=== PATIENT | female | born 1940 | race Caucasian/White ===

== ENCOUNTER 2019-07-12 14:30 | Outpatient (RCR) | payer MEDICARE, SELFPAY ==
--- NOTE | 2019-06-14 15:04 | STOPEVAL ---
ST Outpatient Evaluation Thank you for referring this patient to [facility]. Pt is to be seen by Speech Therapy 1-2 x week for 4 weeks. Please review, sign, date and return this plan of care SD. I agree with and certify that the following plan of care is medically necessary. Referring Physician Date *ST Outpatient Evaluation Start: 06/14/19 08:27 Freq: Status: Active Protocol: Document 06/14/19 10:18 BECHERERT (Rec: 06/14/19 11:03 BECHERERT [email or web address]) Therapy Assessment Status Assessment Status Assessment Status Evaluation Outpatient Past Medical History Neurological History Hx Cerebrovascular Accident (CVA) Yes Hx Transient Ischemic Attacks (TIA) Yes Hx Other Neurological Disorders Yes: had shingles in 2014 which traveled through optic nerve into temporal lobe Pain Assessment Timing of Pain Assessment Timing of Pain Assessment Assessment Self Report Self Report Pain Level 0 Pain Score Pain Score 0: Self Report Bedside Swallow Evaluation General Reports Dysphagia Yes: difficulty with solids, needs liquid to wash it down Reported Difficult Consistencies Solids Swallowing Worsening Rapidly Meal Observed Bedside Swallows History of Dysphagia Yes: PEG tube in 2014 r/t dysphagia for several months History of Pneumonia No Intake Method Prior to Swallow Oral Evaluation Diet Prior to Swallow Evaluation Regular, Level 7 Liquid Consistency Prior to Swallow Thin (0) Evaluation Cognition During Swallowing Alert,Attentive Consistency Thin Uncontrolled 1 Method of Presentation Cup Behaviors Observed Apparently Normal Swallow Occurrence of Coughing After Vocal Quality After Swallowing Clear Swallow Palpation Results Good Swallow Initiation,Strong Laryngeal Elevation Solid Consistency Method of Presentation Finger/Hand Behaviors Observed Apparently Normal Swallow, Multiple Swallows Used Occurrence of Coughing None Swallow Palpation Results Good Swallow Initiation,Strong Laryngeal Elevation Tolerance Tolerance For Swallow No Distress Alertness Awake/Safe Cooperativeness Calm,Cooperative Attention Attentive Awareness of Swallowing Aware Postural Control Needs Assistance Fatigability Fatigues Easily Ability to Follow Directions Independent Recommendations Feeding Type Recommended Oral
--- NOTE | 2019-06-15 08:53 | STOPEVAL ---
Thank you for referring this patient to [facility] [place]. Please review, sign, date and return this plan of care SD. I agree with and certify that the following plan of care is medically necessary. Referring Physician Date *ST Outpatient Evaluation Start: 06/14/19 08:27 Freq: Status: Active Protocol: Document 06/14/19 10:18 BECHERERT (Rec: 06/14/19 11:03 BECHERERT [email or web address]) Therapy Assessment Status Assessment Status Assessment Status Evaluation Outpatient Past Medical History Neurological History Hx Cerebrovascular Accident (CVA) Yes Hx Transient Ischemic Attacks (TIA) Yes Hx Other Neurological Disorders Yes: had shingles in 2014 which traveled through optic nerve into temporal lobe Pain Assessment Timing of Pain Assessment Timing of Pain Assessment Assessment Self Report Self Report Pain Level 0 Pain Score Pain Score 0: Self Report Bedside Swallow Evaluation General Reports Dysphagia Yes: difficulty with solids, needs liquid to wash it down Reported Difficult Consistencies Solids Swallowing Worsening Rapidly Meal Observed Bedside Swallows History of Dysphagia Yes: PEG tube in 2014 r/t dysphagia for several months History of Pneumonia No Intake Method Prior to Swallow Oral Evaluation Diet Prior to Swallow Evaluation Regular, Level 7 Liquid Consistency Prior to Swallow Thin (0) Evaluation Cognition During Swallowing Alert,Attentive Consistency Thin Uncontrolled 1 Method of Presentation Cup Behaviors Observed Apparently Normal Swallow Occurrence of Coughing After Vocal Quality After Swallowing Clear Swallow Palpation Results Good Swallow Initiation,Strong Laryngeal Elevation Solid Consistency Method of Presentation Finger/Hand Behaviors Observed Apparently Normal Swallow, Multiple Swallows Used Occurrence of Coughing None Swallow Palpation Results Good Swallow Initiation,Strong Laryngeal Elevation Tolerance Tolerance For Swallow No Distress Alertness Awake/Safe Cooperativeness Calm,Cooperative Attention Attentive Awareness of Swallowing Aware Postural Control Needs Assistance Fatigability Fatigues Easily Ability to Follow Directions Independent Recommendations Feeding Type Recommended Oral Supervision Recommended Frequent Observation Food Consi
--- NOTE | 2019-07-12 15:58 | STOPEVAL ---
Thank you for referring this patient to [facility]. Please review, sign, date and return this discharge SD. I agree with the following discharge plan. Referring Physician Date Attending Provider: Cornel Stapleton MD * Outpatient Evaluation/Discharge Start: 06/14/19 08:27 Freq: Status: Active Protocol: Document 07/12/19 15:06 BECHERERT (Rec: 07/12/19 15:53 BECHERERT [email or web address]) Therapy Assessment Status Assessment Status Assessment Status Discharge Outpatient Past Medical History Neurological History Hx Cerebrovascular Accident (CVA) Yes Hx Transient Ischemic Attacks (TIA) Yes Hx Other Neurological Disorders Yes: had shingles in 2014 which traveled through optic nerve into temporal lobe Prior Level of Function Activity Level (Last 3 Months) Occupation retired Cooking Yes Cleaning Yes Laundry Yes Shopping Yes Driving Yes Prior Swallow Level Prior Intake Method Oral Prior Diet Regular (Level 7 Diet) Prior Liquid Consistency Thin (Level 0 Diet) Prior Cognition/Communication Prior Communication Level No Impairment Prior Cognitive Function Able to Function Independently Pain Assessment Timing of Pain Assessment Timing of Pain Assessment Assessment Self Report Self Report Pain Level 0 Pain Scale Pain Scale Used Numeric (1 - 10) Self Report Pain Assessment Throat Reported Pain Level 0 Pain Score Pain Score 0: Self Report Voice Evaluation Voice History Laryngeal Pain No Provider Consulted Dr Stapleton ENT Allergies Yes History of Trauma/Injury to the No Laryngeal Region Previous or Planned Laryngeal Surgery No Voice History Comments Pt sees an physician liaison related to thyroid nodules; reportedly, pt has a thyroid nodule on the right that has grown significantly since previous visit to [facility] Speech (% 100 Intelligibility) Intelligibility Comments Low volume can cause mild decline in overall ability to understand pt. Respiration Termination of Phrases/Sentences No Coincides with Termination of Exhalation Decrement In: Phonation No Decrement In: [employer] Closure per video stroboscopy Decrement In: Articulation No Decrement In: Respiration
== END 2019-09-03 12:43 | disposition home or self-care (01) ==
LOC: ANHST 14:30
PROVIDERS: Visit Provider Otolaryngology
DX: J38.00 Paralysis of vocal cords and larynx, unspecified (principal); R47.89 Other speech disturbances; Z86.73 Personal history of transient ischemic attack (TIA), and cerebral infarction without residual deficits; R13.10 Dysphagia, unspecified
CPT/HCPCS: 76536; 92507; 92524; 92610

== ENCOUNTER 2020-01-07 13:31 | Outpatient (CLI) | payer MEDICARE, SELFPAY ==
--- NOTE | ~2020-01-07 | DEXA_ITS ---
Bone Density Report Name: Rosa Veronica Age: 79 Sex: Female Ethnicity: White Date of : 1940 Indication: postmenopausal; height loss; hysterectomy; rheumatoid arthritis; Referring Provider: Neetu Evans Study: Bone densitometry was performed. Exam Date: January 07, 2020 Accession number: [id number] Bone Density: Region BMD T-score Z-score Classification AP Spine (L1-L4) 0.970 -0.7 2.0 Normal Femoral Neck (Left) 0.692 -1.4 0.9 Osteopenia Total Hip (Left) 0.839 -0.8 1.2 Normal Total Hip Bilateral Avg 0.833 -0.9 1.2 Normal Femoral Neck (Right) 0.651 -1.8 0.5 Osteopenia Total Hip (Right) 0.826 -1.0 1.1 Normal World Health Organization criteria for BMD impression classify patients as: Normal (T-score at or above -1.0), Osteopenia (T-score between -1.0 and -2.5), or Osteoporosis (T-score at or below -2.5). 10-year Fracture Risk(1): Major Osteoporotic Fracture 18% Hip Fracture 5.2% Reported Risk Factors: [place] (), Neck BMD=0.651, BMI=28.3, rheumatoid arthritis (1) FRAX(R) Version 3.08. Fracture probability calculated for an untreated patient. Fracture probability may be lower if the patient has received treatment. Previous Exams: Region Exam Age BMD T-score BMD Change BMD Change Date g/cm2 vs Baseline vs Previous AP Spine(L1-L4) 01/07/2020 79 0.970 -0.7 0.043(4.6%)# 0.001(0.1%)# 04/22/2011 70 0.969 -0.7 0.042(4.5%)* 0.042(4.5%)* 05/21/2007 66 0.927 -1.1 Total Hip(Left) 01/07/2020 79 0.839 -0.8 -0.067(-7.4%)# -0.039(-4.5%)# 04/22/2011 70 0.878 -0.5 -0.028(-3.0%)* -0.028(-3.0%)* 05/21/2007 66 0.906 -0.3 Total Hip(Right) 01/07/2020 79 0.826 -1.0 -0.091(-9.9%)# -0.077(-8.5%)# 04/22/2011 70 0.902 -0.3 -0.014(-1.5%) -0.014(-1.5%) 05/21/2007 66 0.916 -0.2 *Denotes significance at 95% confidence level, LSC for AP Spine = 0.022 g/cm2, LSC for Total Hip = 0.027 g/cm2 Clinical Information Provided by Patient: Has rheumatoid arthritis Has the following medical conditions: Hysterectomy Patient maximum height was 64 Menopause Age: 32 No regular weight bearing exercise Drinks caffeinated beverages Onset of menses at age 10 Number of children 3 Impression: The patient has low bone mass, based on the Right Femoral Neck T-score. The patient has an estimated ten-year risk of hip fracture of 5.2% and an estimated ten-year risk of major fracture of 18%, based on the WHO FRAX alg
--- NOTE | ~2020-01-07 | US_ITS ---
US thyroid INDICATION: Follow-up thyroid nodules TECHNIQUE: Real-time high-resolution ultrasound of the thyroid gland COMPARISON: Comparison to multiple prior studies sequentially, with oldest reviewed study dated 03/28. FINDINGS: The right thyroid lobe measures 4.3 x 2.1 x 2.6 cm. The left thyroid lobe measures 5.3 x 2 .8 x 2.8 cm. There is diffuse heterogeneous echotexture with multiple bilateral thyroid nodules which are not significantly changed allowing for differences of technique. Largest in the right lobe measu res 1.7 x 1.1 x 1.3 cm. Largest in the left lobe measures 3 x 2.3 x 2.3 cm. IMPRESSION: 1. No significant change to bilateral thyroid nodules, consistent with multinodular goiter. Given th e long-term interval stability these are likely benign. Reviewed, dictated and finalized at location A. IMPRESSION: 1. No significant change to bilateral thyroid nodules, consistent with multino dular goiter. Given the long-term interval stability these are likely benign.
== END 2020-01-07 13:32 | disposition home or self-care (01) ==
PROVIDERS: PCP Family Medicine; Visit Provider Internal Medicine Endocrinology, Diabetes & Metabolism
DX: E04.1 Nontoxic single thyroid nodule (principal); Z78.0 Asymptomatic menopausal state; M85.89 Other specified disorders of bone density and structure, multiple sites
CPT/HCPCS: 76536; 77080

== ENCOUNTER 2020-01-12 00:25 | Outpatient (CLI) | payer MEDICARE, SELFPAY ==
[2020-01-12 17:43] LABS: SARS-CoV-2 RNA PCR Negative
== END 2020-01-12 00:26 | disposition home or self-care (01) ==
LOC: ANHCOVIDDT 00:25
PROVIDERS: PCP Family Medicine; Visit Provider Internal Medicine Gastroenterology
DX: Z01.818 Encounter for other preprocedural examination (principal); Z11.59 Encounter for screening for other viral diseases
CPT/HCPCS: 87635; C9803; U0003

== ENCOUNTER 2020-01-14 00:50 | Day surgery (SDC) | payer MEDICARE, SELFPAY ==
[2019-11-11 10:40] VITALS: BMI 26.5
[2020-01-07 12:51] VITALS: BMI 26.5
--- NOTE | 2020-01-14 07:35 | P.PNAN_ITS ---
Anes - Initial Pre Proc Eval Procedure: Operation Date: 01/14/20 09:00 Proposed Procedures p Esophagogastroduodenoscopy - Malcolm Carlton MD Date/Time: 01/14/20 07:35 Surgeon: Malcolm Carlton MD Pre Op Diagnosis: Stricture, Hoarseness Patient Data Age: 79 Gender: F Height: 1.6 m Weight: 68 kg Allergies Allergy/AdvReac Type Severity Reaction Status Date / Time No Known Allergies Allergy Verified 01/07/20 12:51 Home Medications Medication Instructions Recorded Confirmed Type ascorbic acid (vitamin C) 500 mg 500 mg PO DAILY 07/02/19 01/07/20 History capsule biotin 1 mg capsule 1 mg PO DAILY 07/02/19 01/07/20 History cholecalciferol (vitamin D3) 25 1,000 unit PO DAILY 07/02/19 01/07/20 History mcg (1,000 unit) capsule folic acid 1 mg tablet 1 mg PO DAILY 07/02/19 01/07/20 History omeprazole 40 mg capsule,delayed 40 mg PO DAILY 07/02/19 01/07/20 History release lisinopril 20 See Rx Instructions .ROUTE 10/08/19 01/07/20 Rx mg-hydrochlorothiazide 12.5 mg .COMPLEX #90 tablet tablet hydrocodone-acetaminophen 1 tablet PO BID PRN 11/11/19 01/07/20 History prednisone See Rx Instructions .ROUTE .COMPLEX 01/07/20 01/07/20 History Patient hx anesthesia problems: none Family hx anesthesia problems: none PMFSH Past Medical History Medical History COPD (chronic obstructive pulmonary disease) CVA (cerebral vascular accident) Essential (primary) hypertension GERD without esophagitis Hyperthyroidism Rheumatoid arthritis Follows with Rheumatology TIA (transient ischemic attack) [facility] Family History Family History Father Family history of Alzheimer's disease Mother Hypertension Other Cerebrovascular accident Family history of arthritis Family history of thyroid disease Social History Social History Smoking status: Never smoker Alcohol intake: current Anes - Eval Final PreProcedure Day of Procedure 01/14/20 07:35 Patient weight: overweight Heart: regular rate and rhythm Lungs: clear to auscultation and normal air movement Airway: Mallampati scale class II Neurological: alert and oriented Last oral intake: >/= 8 hours ASA classification: III Emergent: no Anesthetic plan: proceed Anesthesia type and monitoring: general GIVS Informed Consent: The patient's anesthetic plan and its attendant risks and benefits were discussed with the patient/family/POA. Questions were solicited and answers provided to the satisfaction of the patient/family/POA.
[2020-01-14 08:20] VITALS: BP 184/99; PULSE 77; RESP 16; TEMP 36.2; O2SAT 97; BMI 27.0
[2020-01-14] MEDS: LACTATED RINGERS 1,000 ML 150 ML IV CONT (08:37)
--- NOTE | 2020-01-14 08:56 | P.HP_ITS ---
History of Present Illness History of Present Illness Consent: Risks, benefits, and alternatives have been discussed and questions answered. Patient agrees to proceed with procedure. Chief complaint: Stricture, Hoarseness Narrative: Rosa Veronica is a 79 year old female with dysphagia. She has history of esophageal stricture PMF Past Medical History Medical History COPD (chronic obstructive pulmonary disease) CVA (cerebral vascular accident) Essential (primary) hypertension GERD without esophagitis Hyperthyroidism Rheumatoid arthritis Follows with Rheumatology TIA (transient ischemic attack) Following with [facility] Family History Family History Father Family history of Alzheimer's disease Mother Hypertension Other Cerebrovascular accident Family history of arthritis Family history of thyroid disease Social History Social History Smoking status: Never smoker Alcohol intake: current Meds Home Medications and Allergies Home Medications Medication Instructions Recorded Confirmed Type ascorbic acid (vitamin C) 500 mg 500 mg PO DAILY 07/02/19 01/14/20 History capsule biotin 1 mg capsule 1 mg PO DAILY 07/02/19 01/14/20 History cholecalciferol (vitamin D3) 25 1,000 unit PO DAILY 07/02/19 01/14/20 History mcg (1,000 unit) capsule folic acid 1 mg tablet 1 mg PO DAILY 07/02/19 01/14/20 History omeprazole 40 mg capsule,delayed 40 mg PO DAILY 07/02/19 01/14/20 History release lisinopril 20 See Rx Instructions .ROUTE 10/08/19 01/14/20 Rx mg-hydrochlorothiazide 12.5 mg .COMPLEX #90 tablet tablet hydrocodone-acetaminophen 1 tablet PO BID PRN 11/11/19 01/07/20 History prednisone See Rx Instructions .ROUTE .COMPLEX 01/07/20 01/14/20 History Allergies Allergy/AdvReac Type Severity Reaction Status Date / Time No Known Allergies Allergy Verified 01/14/20 08:20 Vital Signs Vital Signs - 24 hr 01/14/20 08:20 Temperature 36.2 C L Pulse Rate 77 Respiratory Rate 16 Blood Pressure 184/99 H Pulse Oximetry 97 Exam Const: General: alert Orientation/consciousness: patient oriented x3 Resp: Auscultation: clear to auscultation bilaterally Cardio: Rhythm: regular rhythm GI: GI Palp: Yes Soft to palpation and No Tenderness to palpation present (GI) Neuro: General: patient oriented x3 Assessment and Plan Assessment and plan (1) Dysphagia: Code(s): R13.10 - Dysphagia, unspecified Status: Acute Assessment and Plan: EGD with possible biopsy or dilatation or cautery.
[2020-01-14 09:29] VITALS: BP 124/71; PULSE 75; RESP 18; O2SAT 94
[2020-01-14 09:39] VITALS: BP 135/93; PULSE 71; RESP 21; O2SAT 95
[2020-01-14 09:49] VITALS: BP 145/94; PULSE 70; RESP 20; O2SAT 96
== END 2020-01-14 10:06 | disposition home or self-care (01) ==
PROVIDERS: PCP Family Medicine; Visit Provider Internal Medicine Gastroenterology
PROC: 0DJ08ZZ Inspection of Upper Intestinal Tract, Via Natural or Artificial Opening Endoscopic (ICD-10-PCS; CPT 43235; principal; 2020-01-14 09:00)
DX: K22.2 Esophageal obstruction (principal); K21.9 Gastro-esophageal reflux disease without esophagitis; J44.9 Chronic obstructive pulmonary disease, unspecified; I10 Essential (primary) hypertension; M06.9 Rheumatoid arthritis, unspecified; E05.90 Thyrotoxicosis, unspecified without thyrotoxic crisis or storm; Z86.73 Personal history of transient ischemic attack (TIA), and cerebral infarction without residual deficits
CPT/HCPCS: 43249; 88305; C1726; J2001; J2704; J7120

== ENCOUNTER 2020-03-14 16:35 | Emergency (ER) | payer MEDICARE, SELFPAY ==
--- NOTE | ~2020-03-14 | CT_ITS ---
EXAMINATION: CT abdomen pelvis w con EXAM DATE: 03/14/2020 18:36 INDICATION: Right upper quadrant abdominal pain. TECHNIQUE: Spiral CT of the abdomen and pelvis was performed following intravenous injection of 100 m L Omnipaque 350. Axial, coronal and sagittal images were reviewed. The dose-length product (DLP) fo r this examination was 594.18 mGy-cm. The exposure was tailored according to patient size (auto mA e xposure control), and iterative reconstruction (ASIR) was used as additional dose reduction technique . Comparison is made to prior examination from 04/06/2018. FINDINGS: The superior mesenteric artery origin enhances normally, but once it starts branching, ther e are several branches that have decreased enhancement, with mild adjacent fat stranding. Appearance is suspicious for acute thrombus (findings have been indicated on axial image 88, 102, 108. These ves sels that appear normal in 2018. There is no bowel wall thickening to suggest acute ischemia from thi s but recommend checking lactate levels. There is moderate sigmoid diverticulosis. The liver, spleen, adrenal glands and pancreas are unremarkable. Gallbladder is unremarkable. No bi liary obstruction. Portal and splenic veins are patent. Kidneys enhance symmetrically. There is no hydronephrosis. There is punctate left inferior calyceal stone. The uterus is not identified and phelps s likely been surgically resected. Small bilateral inguinal fat-containing hernias. Small mid abdomin al fat-containing hernia. The bladder is unremarkable. There is no retroperitoneal or pelvic lympha denopathy. There is mild to moderate scattered arteriosclerotic disease. No free intraperitoneal gas. The heart is normal in size. There are no pericardial or pleural effu sions. There is bibasilar subsegmental atelectasis. There are no osteoblastic or osteolytic lesions identified. IMPRESSION: 1. Decreased enhancement, attenuation within several branches of the superior mesenteric artery, wit h mild associated adjacent mesenteric edema. Could be acute arterial thrombus. No bowel findings to s uggest ischemia but please check lactate levels. 2. Moderate sigmoid diverticulosis. 3. Left nephrolithiasis. 4. Fat-containing hernias. 5. Bibasilar atelectasis. Reviewed, dictated and finalized at location A. IMPRESSION: 1. Decreased enhancement, attenuation within several branches of the superior mesenteric artery, with mild associated adjacent mesenteric edema. Could be acu te arterial thrombus. No bowel findings to suggest ischemia but please check la ctate levels. 2. Moderate sigmoid diverticulosis. 3. Left nephrolithiasis. 4. Fat-containing hernias. 5. Bibasilar atelectasis.
[2020-03-14 16:39] VITALS: BP 171/108; PULSE 92; RESP 20; TEMP 36.5; O2SAT 95
[2020-03-14 16:57] LABS: Basophils Percent Auto 0.5 % (0.2-1.2); Eosinophils Absolute Auto 0.1 K/mm3 (0-0.3); Eosinophils Percent Auto 1.7 % (0-4.4); Hematocrit 47.5 % (37.0-47.0); Hemoglobin 15.1 g/dL (12.0-15.0); Immature Granulocyte Absolute 0.02 K/mm3 (0.00-0.031); Immature Granulocyte Percent A 0.3 % (0-0.5); Immature Platelet Fraction Pct 4.6 % (0.9-11.2); Lymphocytes Absolute Auto 2.08 K/mm3 (0.9-3.2); Lymphocytes Percent Auto 27.8 % (18.3-44.2); Mean Corpuscular HGB Conc 31.8 g/dl (32-36); Mean Corpuscular Hemoglobin 29.1 pg (26-34); Mean Corpuscular Volume 91.5 fl (80-100); Mean Platelet Volume 10.9 fl (7.4-10.4); Monocytes Absolute Auto 0.6 K/mm3 (0.1-0.6); Monocytes Percent Auto 8.2 % (2.6-8.5); Neutrophils Absolute Auto 4.6 K/mm3 (1.3-6.7); Neutrophils Percent Auto 61.5 % (45.5-73.1); Platelet Count Result 84 k/mm3 (150-375); Red Blood Count 5.19 M/mm3 (4.2-5.4); Red Cell Distribution Width 14.6 % (11.5-14.5); White Blood Count 7.5 K/mm3 (4.5-10.0)
[2020-03-14 17:07] LABS: Alanine Aminotransferase 43 U/L (4-35); Albumin Level 4.1 g/dL (3.5-5.1); Alkaline Phosphatase 122 U/L (38-126); Anion Gap 9.1 mmol/L (7-16); Aspartate Amino Transferase 51 U/L (14-36); Blood Urea Nitrogen 15 mg/dL (7-17); Calcium 8.7 mg/dL (8.4-10.2); Carbon Dioxide 29 mmol/L (22-30); Chloride 100 mmol/L (98-107); Estimated CRCL calculation 52 ml/min; Estimated Glomerular Filt Rate > 60; Glucose 95 mg/dL (65-105); Lipase 197 U/L (23-300); Potassium 3.1 mmol/L (3.4-5.0); Sodium 135 mmol/L (137-145)
[2020-03-14 17:11] LABS: Add Urine Microscopic? YES; Appearance Urine Clear (Clear); Bilirubin Urine Negative (Negative); Blood Urine Negative (Negative); Color Urine Yellow (Yellow); Glucose Urine UA Negative (Negative); Ketones Urine Negative (Negative); Leukocyte Esterase Ur Negative LEU/UL (Negative); Mucus Urine Few /lpf; Nitrate Urine Negative (Negative); Protein Urine 1+ mg/dL (Negative); Specific Grav Ur 1.019 (1.001-1.035); Squamous Epithelial Cell Urine Many /hpf (Few); Urobilinogen Urine Negative mg/dL (<2.0); WBC Urine 0-3 /hpf
--- NOTE | 2020-03-14 17:59 | ED.ABDPAIN ---
HPI - Abdominal Pain General Chief Complaint: Abdominal Pain Stated Complaint: R abd pain Time Seen by Provider: 03/14/20 17:52 Source: patient and family History of Present Illness HPI narrative: Abdominal pain started last night, constant, radiating to the back. Associated with nausea and frequent vomiting. Patient denies any fever, chills, diarrhea, similar symptoms. History of hysterectomy and appendectomy. Patient does not smoke or drink. Patient on aspirin. Related Data Home Medications Medication Instructions Recorded Confirmed ascorbic acid (vitamin C) 500 mg 500 mg PO DAILY 07/02/19 03/13/20 capsule biotin 1 mg capsule 1 mg PO DAILY 07/02/19 03/13/20 cholecalciferol (vitamin D3) 25 1,000 unit PO DAILY 07/02/19 03/13/20 mcg (1,000 unit) capsule folic acid 1 mg tablet 1 mg PO DAILY 07/02/19 03/13/20 omeprazole 40 mg capsule,delayed 40 mg PO DAILY 07/02/19 03/13/20 release hydrocodone-acetaminophen 1 tablet PO BID PRN 11/11/19 03/13/20 aspirin 325 mg tablet 325 mg PO DAILY 03/06/20 03/13/20 atorvastatin 40 mg tablet 40 mg PO DAILY 03/06/20 03/13/20 fluticasone 250 mcg-salmeterol 50 1 inhalation INHALATION BID 03/06/20 03/13/20 mcg/dose blistr powdr for inhalation methylprednisolone 4 mg tablet 6 mg PO QAM tablet 03/07/20 03/13/20 Allergies Allergy/AdvReac Type Severity Reaction Status Date / Time No Known Allergies Allergy Verified 03/14/20 15:55 Review of Systems Review of Systems: Narrative: CONSTITUTIONAL: Denies fever, chills, or sweats. EYES: Denies visual changes, redness, or discharge. ENT: Denies rhinorrhea, congestion, sore throat, or otalgia. CARDIOVASCULAR: Denies chest pain, palpitations, or edema. RESPIRATORY: Denies cough or dyspnea. GASTROINTESTINAL: Denies abdominal pain, nausea, vomiting, or diarrhea. GENITOURINARY: Denies dysuria or hematuria. SKIN: Denies rash or itching. MUSCULOSKELETAL: Denies back pain, joint pain, or myalgia. NEUROLOGIC: Denies headache, numbness, or weakness. PSYCHIATRIC: Denies anxiety or depression. [facility] Past Medical History Medical History COPD (chronic obstructive pulmonary disease) CVA (cerebral vascular accident) Essential (primary) hypertension GERD without esophagitis History of blood clots Hyperthyroidism Rheumatoid arthritis Follows with Rheumatology TIA (transient ischemic attack) Following with [facility] Surgical History Surgical History H/O abdominoplasty H/O brain surgery H/O shoulder surgery H/O Spinal surgery spinal tumor removed H/O: hysterectomy History of appendectomy History of knee replacement Family History Family History Father Family history of Alzheimer's disease Mother Hypertension Other Diabetes mellitus Nervous disorder Other Cerebrovascular accident Family history of arthritis Family history of thyroid disease Social History Social History Smoking status: Never smoker Alcohol intake: current Substance use: never Gender identity (if verbalized by the patient): Female Exam Narrative: Exam Narrative: General appearance: Well-developed, well-nourished Skin: Normal color Head: Normocephalic, nontraumatic Eyes: Clear conjunctiva ENT: Oropharynx normal, ears normal, nose normal Neck: Supple, nontender Chest and respiratory: Airway patent, no respiratory distress, no accessory muscle use Heart: Regular rate/rhythm Abdomen: Diffuse tenderness, diffuse guarding, distention Vascular: Normal peripheral pulses, normal capillary refill. Musculoskeletal: Normal range of motion, nontender back Neurologic: Alert and oriented ?3, [employer] is normal as tested, no gross motor deficit
--- NOTE | 2020-03-14 18:41 | PC.NURSE ---
Pt in CT at this time
[2020-03-14] MEDS: SODIUM CHLORIDE 0.9% IV 1,000 ML 999 ML IV CONT (18:46)
[2020-03-14 18:47] VITALS: BP 161/99; PULSE 88; RESP 23; O2SAT 88
[2020-03-14] MEDS: ONDANSETRON INJ 4 MG/2 ML VIAL IV PUSH (18:47)
[2020-03-14] MEDS: MORPHINE SULFATE 4 MG/ML INJ IV PUSH (18:47)
[2020-03-14 19:22] VITALS: BP 174/105; PULSE 89; RESP 18; O2SAT 93
[2020-03-14 20:09] LABS: Lactic Acid Reflex 1.5 mmol/L (0.7-2.1)
[2020-03-14 21:22] LABS: INR 0.9; Prothrombin Time 12.2 Seconds (11.1-14.7)
[2020-03-14 21:23] LABS: Partial Thromboplastin Time 27.7 SECONDS (22.3-36.8)
--- NOTE | 2020-03-14 21:54 | PC.NURSE ---
MD Denis states it is okay to infuse Heparin with pt's PLT level of 84. Discussed with Kelly, pharmacist.
[2020-03-14] MEDS: HEPARIN SOD/D5W 100 UNITS/ML 25,000 UNITS/250 ML BAG 6 UNITS IV CONT (22:17)
[2020-03-14 22:18] VITALS: BP 135/94; PULSE 102; RESP 18; O2SAT 93
[2020-03-14] MEDS: HEPARIN SODIUM 5,000 UNITS/ML VIAL 5000 UNITS IV PUSH (22:18)
[2020-03-14 22:32] LABS: Basophils Percent Auto 0.5 % (0.2-1.2); Eosinophils Absolute Auto 0.1 K/mm3 (0-0.3); Eosinophils Percent Auto 1.4 % (0-4.4); Hematocrit 49.4 % (37.0-47.0); Hemoglobin 15.7 g/dL (12.0-15.0); Immature Granulocyte Absolute 0.03 K/mm3 (0.00-0.031); Immature Granulocyte Percent A 0.4 % (0-0.5); Immature Platelet Fraction Pct 4.9 % (0.9-11.2); Lymphocytes Absolute Auto 2.28 K/mm3 (0.9-3.2); Lymphocytes Percent Auto 27.1 % (18.3-44.2); Mean Corpuscular HGB Conc 31.8 g/dl (32-36); Mean Corpuscular Hemoglobin 29.5 pg (26-34); Mean Corpuscular Volume 92.9 fl (80-100); Mean Platelet Volume 10.7 fl (7.4-10.4); Monocytes Absolute Auto 0.7 K/mm3 (0.1-0.6); Neutrophils Absolute Auto 5.3 K/mm3 (1.3-6.7); Neutrophils Percent Auto 62.6 % (45.5-73.1); Platelet Count Result 84 k/mm3 (150-375); Red Blood Count 5.32 M/mm3 (4.2-5.4); Red Cell Distribution Width 14.9 % (11.5-14.5); White Blood Count 8.4 K/mm3 (4.5-10.0)
--- NOTE | 2020-03-14 23:01 | PC.NURSE ---
Called [facility] to transport patient. ETA [id number]. No other EMS services available.
--- NOTE | 2020-03-14 23:48 | PC.NURSE ---
called [facility] for ETA update. ETA [phone]
--- NOTE | 2020-03-14 23:58 | PCDIET ---
called [facility] to request transport. declined
[2020-03-15 00:54] VITALS: BP 165/103; PULSE 103; RESP 17; O2SAT 94
--- NOTE | 2020-03-15 01:27 | PC.NURSE ---
pt continues to rest on stretcher at this time with eyes closed, RR even and unlabored, pt denies any needs/concerns. will continue to monitor pt for baseline status changes.
[2020-03-15 02:17] VITALS: BP 152/106; PULSE 101; RESP 18; O2SAT 95
--- NOTE | 2020-03-15 02:33 | PC.NURSE ---
called [facility] for ETA update. ETA [id number]
[2020-03-15 03:29] VITALS: BP 168/109; PULSE 105; RESP 17; O2SAT 95
--- NOTE | 2020-03-23 20:35 | PC.NURSE ---
LATE ENTRY This note is being entered to document information to the patient's record. The following information was omitted on 03/23/20, by Kourtney Randhawa. on 03/15/20 the Heparin infusion was not stopped because pt was transferred to outside facility with active infusion.
== END 2020-03-15 03:31 | disposition short-term general hospital (02) ==
PROVIDERS: Emergency Provider Emergency Medicine; PCP Family Medicine
DX: K55.069 Acute infarction of intestine, part and extent unspecified (principal); J44.9 Chronic obstructive pulmonary disease, unspecified; Z86.73 Personal history of transient ischemic attack (TIA), and cerebral infarction without residual deficits; K21.9 Gastro-esophageal reflux disease without esophagitis; M06.9 Rheumatoid arthritis, unspecified; Z79.82 Long term (current) use of aspirin; Z96.659 Presence of unspecified artificial knee joint; N20.0 Calculus of kidney; K57.90 Diverticulosis of intestine, part unspecified, without perforation or abscess without bleeding; K46.9 Unspecified abdominal hernia without obstruction or gangrene; R91.8 Other nonspecific abnormal finding of lung field; K40.90 Unilateral inguinal hernia, without obstruction or gangrene, not specified as recurrent
CPT/HCPCS: 36415; 74177; 80053; 81001; 83605; 83690; 85025; 85055; 85610; 85730; 96361; 96365; 96366; 96375; 99285; J1644; J2270; J2405; J7030; Q9967

== ENCOUNTER 2020-05-29 00:57 | Outpatient (CLI) | payer MEDICARE, SELFPAY ==
[2020-05-29 17:41] LABS: SARS-CoV-2 RNA PCR Negative
== END 2020-05-29 00:58 | disposition home or self-care (01) ==
LOC: ANHCOVIDDT 00:57
PROVIDERS: PCP Family Medicine; Visit Provider Internal Medicine Gastroenterology
DX: Z01.812 Encounter for preprocedural laboratory examination (principal); Z20.828 Contact with and (suspected) exposure to other viral communicable diseases
CPT/HCPCS: 87635; C9803; U0003

== ENCOUNTER 2020-05-31 01:59 | Day surgery (SDC) | payer MEDICARE, SELFPAY ==
[2020-05-24 12:50] VITALS: BMI 26.6
[2020-05-31 10:12] VITALS: BP 201/104; PULSE 82; RESP 20; TEMP 36.1; O2SAT 98
[2020-05-31] MEDS: LACTATED RINGERS 1,000 ML 150 ML IV CONT (10:32)
--- NOTE | 2020-05-31 10:33 | PM.HPGS ---
History of Present Illness History of Present Illness Consent: Risks, benefits, and alternatives have been discussed and questions answered. Patient agrees to proceed with procedure. Chief complaint: Dysphagia Narrative: Rosa Veronica is a 79 year old female With dysphagia for solid food. She has a known history of esophageal stricture. [facility] Past Medical History Medical History COPD (chronic obstructive pulmonary disease) CVA (cerebral vascular accident) Essential (primary) hypertension GERD without esophagitis H/O vaginal delivery History of blood clots History of cerebral hemorrhage History of skin cancer History of stroke History of urinary incontinence Hyperlipidemia Hypertension Hyperthyroidism Restrictive pattern present on pulmonary function testing Rheumatoid arthritis Follows with Rheumatology Shortness of Breath TIA (transient ischemic attack) Following with [facility] Wheezing Surgical History Surgical History H/O abdominoplasty H/O brain surgery H/O shoulder surgery H/O Spinal surgery spinal tumor removed H/O: hysterectomy History of appendectomy History of knee replacement Family History Family History (Updated 05/25/20 @ 13:12 by Sindhu Weaver MA) Father Family history of Alzheimer's disease Hypertension Hyperlipidemia Mother Hypertension Other Diabetes mellitus Nervous disorder Hypertension Heart disease Other Cerebrovascular accident Family history of arthritis Family history of thyroid disease Social History Social History Smoking status: Never smoker Alcohol intake: former Substance use: never Substance use type: does not use Living arrangements: with family Gender identity (if verbalized by the patient): Female Spiritual care concerns: No Meds Home Medications and Allergies Home Medications Medication Instructions Recorded Confirmed Type ascorbic acid (vitamin C) 500 mg 500 mg PO DAILY 07/02/19 05/24/20 History capsule cholecalciferol (vitamin D3) 25 1,000 unit PO DAILY 07/02/19 05/24/20 History mcg (1,000 unit) capsule omeprazole 40 mg capsule,delayed 40 mg PO DAILY 07/02/19 05/24/20 History release lisinopril 20 See Rx Instructions .ROUTE 01/28/20 05/24/20 Rx mg-hydrochlorothiazide 12.5 mg .COMPLEX #90 tablet tablet atorvastatin 40 mg tablet 40 mg PO DAILY 03/06/20 05/24/20 History methylprednisolone 4 mg tablet 6 mg PO QAM tablet 03/07/20 05/24/20 History hydrocodone 5 mg-acetaminophen 325 1 tablet PO BID PRN #60 tablet 04/27/20 05/24/20 Rx mg tablet albuterol sulfate 90 mcg/actuation 1 inhalation INHALATION Q4H PRN 30 05/08/20 05/24/20 Rx aerosol inhaler Days #26 gm apixaban 5 mg tablet 5 mg PO BID 05/08/20 05/24/20 History potassium chloride 10 meq PO DAILY 05/24/20 05/24/20 History aspirin 81 mg tablet,delayed 81 mg PO DAILY 05/25/20 History release folic acid 400 mcg tablet 0.4 mg PO DAILY 05/25/20 History Allergies Allergy/AdvReac Type Severity Reaction Status Date / Time No Known Allergies Allergy Verified 05/31/20 10:10 Vital Signs Vital Signs - 24 hr 05/31/20 10:12 Temperature 36.1 C L Pulse Rate 82 Respiratory Rate 20 Blood Pressure 201/104 H Pulse Oximetry 98 Exam Const: General: alert Orientation/consciousness: patient oriented x3 Resp: Auscultation: clear to auscultation bilaterally Cardio: Rhythm: regular rhythm GI: GI Palp: Yes Soft to palpation and No Tenderness to palpation present (GI) Neuro: General: patient oriented x3 Assessment and Plan Assessment and plan (1) Dysphagia: Code(s): R13.10 - Dysphagia, unspecified Status: Acute Assessment and Plan: EGD with possible biopsy or dilatation or cautery.
--- NOTE | 2020-05-31 10:46 | WPDANESEPPF ---
Anes - Initial Pre Proc Eval Procedure: Operation Date: 05/31/20 10:30 Proposed Procedures p Esophagogastroduodenoscopy - Malcolm Carlton MD Date/Time: 05/31/20 10:46 Surgeon: Malcolm Carlton MD Pre Op Diagnosis: Dysphagia Patient Data Age: 79 Gender: F Height: 5 ft 3 in Weight: 69.5 kg Last Vital Signs Temp 97.0 F L 05/31/20 10:12 Pulse 82 05/31/20 10:12 Resp 20 05/31/20 10:12 BP 201/104 H 05/31/20 10:12 Pulse Ox 98 05/31/20 10:12 Allergies Allergy/AdvReac Type Severity Reaction Status Date / Time No Known Allergies Allergy Verified 05/31/20 10:10 Home Medications Medication Instructions Recorded Confirmed Type ascorbic acid (vitamin C) 500 mg 500 mg PO DAILY 07/02/19 05/24/20 History capsule cholecalciferol (vitamin D3) 25 1,000 unit PO DAILY 07/02/19 05/24/20 History mcg (1,000 unit) capsule omeprazole 40 mg capsule,delayed 40 mg PO DAILY 07/02/19 05/24/20 History release lisinopril 20 See Rx Instructions .ROUTE 01/28/20 05/24/20 Rx mg-hydrochlorothiazide 12.5 mg .COMPLEX #90 tablet tablet atorvastatin 40 mg tablet 40 mg PO DAILY 03/06/20 05/24/20 History methylprednisolone 4 mg tablet 6 mg PO QAM tablet 03/07/20 05/24/20 History hydrocodone 5 mg-acetaminophen 325 1 tablet PO BID PRN #60 tablet 04/27/20 05/24/20 Rx mg tablet albuterol sulfate 90 mcg/actuation 1 inhalation INHALATION Q4H PRN 30 05/08/20 05/24/20 Rx aerosol inhaler Days #26 gm apixaban 5 mg tablet 5 mg PO BID 05/08/20 05/24/20 History potassium chloride 10 meq PO DAILY 05/24/20 05/24/20 History aspirin 81 mg tablet,delayed 81 mg PO DAILY 05/25/20 History release folic acid 400 mcg tablet 0.4 mg PO DAILY 05/25/20 History Patient hx anesthesia problems: none Family hx anesthesia problems: none PMFSH Past Medical History Medical History COPD (chronic obstructive pulmonary disease) CVA (cerebral vascular accident) Essential (primary) hypertension GERD without esophagitis H/O vaginal delivery History of blood clots History of cerebral hemorrhage History of skin cancer History of stroke History of urinary incontinence Hyperlipidemia Hypertension Hyperthyroidism Restrictive pattern present on pulmonary function testing Rheumatoid arthritis Follows with Rheumatology Shortness of Breath TIA (transient ischemic attack) Following with [facility] Wheezing Surgical History Surgical History H/O abdominoplasty H/O brain surgery H/O shoulder surgery H/O Spinal surgery spinal tumor removed H/O: hysterectomy History of appendectomy History of knee replacement Family History Family History (Updated 05/25/20 @ 13:12 by Sindhu Weaver MA) Father Family history of Alzheimer's disease Hypertension Hyperlipidemia Mother Hypertension Other Diabetes mellitus Nervous disorder Hypertension Heart disease Other Cerebrovascular accident Family history of arthritis Family history of thyroid disease Social History Social History Smoking status: Never smoker Alcohol intake: former Substance use: never Substance use type: does not use Living arrangements: with family Gender identity (if verbalized by the patient): Female Spiritual care concerns: No Anes - Eval Final PreProcedure Day of Procedure 05/31/20 10:46 Patient weight: overweight Heart: regular rate and rhythm Lungs: clear to auscultation Airway: Mallampati scale class III Neurological: alert and oriented Last oral intake: >/= 8 hours ASA classification: III Emergent: no Anesthetic plan: proceed Anesthesia type and monitoring: general GIVS and standard monitoring Informed Consent: The patient's anesthetic plan and its attendant risks and benefits were discussed with the patient/family/POA. Questions were solicited
[2020-05-31 11:07] VITALS: BP 141/73; PULSE 78; RESP 24; O2SAT 98
[2020-05-31 11:17] VITALS: BP 146/77; PULSE 75; RESP 24; O2SAT 98
[2020-05-31 11:27] VITALS: BP 147/79; PULSE 71; RESP 21; O2SAT 98
== END 2020-05-31 12:05 | disposition home or self-care (01) ==
PROVIDERS: PCP Family Medicine; Visit Provider Internal Medicine Gastroenterology
PROC: 0DJ08ZZ Inspection of Upper Intestinal Tract, Via Natural or Artificial Opening Endoscopic (ICD-10-PCS; CPT 43235; principal; 2020-05-31 10:30)
DX: K22.2 Esophageal obstruction (principal); K29.70 Gastritis, unspecified, without bleeding; I10 Essential (primary) hypertension; J44.9 Chronic obstructive pulmonary disease, unspecified; K21.9 Gastro-esophageal reflux disease without esophagitis; E78.5 Hyperlipidemia, unspecified; M06.9 Rheumatoid arthritis, unspecified; Z86.73 Personal history of transient ischemic attack (TIA), and cerebral infarction without residual deficits; Z79.01 Long term (current) use of anticoagulants; Z79.82 Long term (current) use of aspirin
CPT/HCPCS: 43249; C1726; J2704; J7120

== ENCOUNTER 2020-06-21 14:52 | Outpatient (CLI) | payer MEDICARE, SELFPAY ==
[2020-06-21 15:37] VITALS: PULSE 106; O2SAT 93
[2020-06-21 15:39] VITALS: PULSE 105; O2SAT 87
[2020-06-21 15:41] VITALS: PULSE 94; O2SAT 87
[2020-06-21 15:42] VITALS: PULSE 95; O2SAT 87
[2020-06-21 15:44] VITALS: PULSE 102; O2SAT 90
--- NOTE | 2020-06-21 16:30 | HOMEO2EVAL ---
Home Oxygen Evaluation RC: Home Oxygen (O2) Evaluation Start: 06/21/20 16:23 Freq: Status: Active Protocol: RPE Activity Type Activity Date Activity User E-Sign Co-Sign Detail Recorded Client Recorded Date Recorded By Document 06/21/20 15:37 [id number] [id number] 06/21/20 16:30 KRM Document 06/21/20 15:39 KRM [id number] 06/21/20 16:30 KRM Document 06/21/20 15:41 KRM [email or web address] 06/21/20 16:30 KRM Document 06/21/20 15:42 [email or web address] [email or web address] 06/21/20 16:30 KRM Document 06/21/20 15:44 KRM [email or web address] 06/21/20 16:30 KRM 06/21/20 06/21/20 06/21/20 15:37 15:39 15:41 Home O2 Evaluation Test Phase Resting Exercise Exercise Oxygen Delivery Room Air Room Air Nasal Cannula Oxygen Flow Rate (L/min) 1 Pulse Oximetry (90-100 %) 93 87 L 87 L Pulse Rate (60-100 beats/min) 106 H 105 H 94 Activity Tolerance Good Good Ambulation Distance (feet) Home Oxygen Evaluation Comments Treatment Charges O2 Evaluation 06/21/20 06/21/20 15:42 15:44 Home O2 Evaluation Test Phase Exercise Exercise Oxygen Delivery Nasal Cannula Nasal Cannula Oxygen Flow Rate (L/min) 2 3 Pulse Oximetry (90-100 %) 87 L 90 Pulse Rate (60-100 beats/min) 95 102 H Activity Tolerance Good Good Ambulation Distance (feet) 200 Home Oxygen Evaluation Comments 3LPM WITH ACTIVITY Treatment Charges
--- NOTE | 2020-06-24 11:21 | WPDPFTINT ---
PFT Interpretation PFT Interpretation: This PFT met all criteria for ATS standards and reproducibility FEV/FVC post bronchodilator 80% FEV1 93% FVC 75% TLC 73% or 3.32 liters RV 48% RV/TLC 40% DLCO 61% or 10.8 liters when adjusted for alveolar volume but not adjusted for hemoglobin Flow volume loops showed a restrictive pattern Impression: A restrictive ventilatory defect is present with mildly reduced diffusion capacity. This pattern is suggestive of ILD. Clinical correlation is advised.
== END 2020-06-21 14:53 | disposition home or self-care (01) ==
PROVIDERS: PCP Family Medicine; Visit Provider Internal Medicine Critical Care Medicine
DX: R06.02 Shortness of breath (principal); R94.2 Abnormal results of pulmonary function studies
CPT/HCPCS: 94060; 94618; 94726; 94729

== ENCOUNTER → 2020-06-30 13:22 | Outpatient (CLI) | payer MEDICARE, SELFPAY ==
--- NOTE | ~2020-06-30 | CT_ITS ---
EXAMINATION: CT chest high resolution wo ks DATE: 06/30/2020 13:56 INDICATION: J44.9 - Chronic obstructive pulmonary disease, unspecified TECHNIQUE: Computed tomography (CT) of the chest was performed without intravenous contrast. Addition al 3D reconstructions utilizing coronal maximum intensity projection (MIP) were performed. Automated exposure control and iterative reconstruction technique were employed. The dose-length product was 28 0.65 mGy-cm. COMPARISON: 07/29/2018 FINDINGS: Mild emphysema. Diffuse mild bronchiectatic changes. Small calcified granuloma in the right upper lob e. Unchanged 3 mm posterior right apical noncalcified granuloma. Similar pattern of mild discoid atel ectasis/scarring at the lingula, right middle and left lower lobes. Minimal dependent atelectasis in the right lower lobe. Mild bronchiectatic changes in the bilateral lower lobes. No intralobular septa l thickening to suggest chronic interstitial lung disease. No pneumonia, pulmonary edema or pleural e ffusion. Cardiomegaly. Atherosclerotic coronary artery calcification. No pericardial effusion. Athero sclerotic calcification is along the ectatic aorta which measures up to 4.2 cm in maximal diameter at the ascending thoracic aorta which is unchanged. No pathologically enlarged thoracic lymphadenopathy . Goiter. Bilateral breast implants. Visualized upper abdomen is unremarkable. Thoracic levoscoliosis with moderate spondylosis. Postoperative changes at the cervicothoracic junction with laminectomies at C7 and T1. IMPRESSION: 1. Mild emphysema with mild bronchiectasis and similar pattern of scattered mild atelectasis/scarring in the lower lungs. 2. Cardiomegaly. Reviewed, dictated and finalized at [facility]. L WORK[facility] IMPRESSION: 1. Mild emphysema with mild bronchiectasis and similar pattern of scattered mil d atelectasis/scarring in the lower lungs. 2. Cardiomegaly.
== END ==
PROVIDERS: PCP Family Medicine; Visit Provider Internal Medicine Critical Care Medicine
DX: J44.9 Chronic obstructive pulmonary disease, unspecified (principal); I51.7 Cardiomegaly; I25.10 Atherosclerotic heart disease of native coronary artery without angina pectoris
CPT/HCPCS: 71250

== ENCOUNTER 2020-08-21 08:30 | Outpatient (CLI) | payer MEDICARE, SELFPAY ==
--- NOTE | 2020-09-27 19:08 | WPDHOMESLEEP ---
Sleep Study - Home Unattended Date of Study: 08/21/20 Ordering Provider: Segundo Blount APRN Interpreting Physician: Nolvia Cota MD Home Sleep Study Type: Apnea Link Air Height: 1.6 m Weight: 68.039 kg Body Mass Index: 26.5 Neck Circumference (inches): 15.25 [place]: 11 Reason for Sleep Study Hypersomnolence Sleep History Rosa Adame is an 80 year old female with COPD and exercise hypoxemia. She has rare snoring, and it is rarely loud. She does not have trouble sleeping with a cold, does not wake up gasping at night. She rarely sweats excessively at night. She does not notice her heart beating irregularly at night. She rarely falls asleep in the day, never while driving, and never during physical effort. She does not have loss of muscle tone with strong emotion. She does not have daytime difficulties due to sleepiness, she is retired. She does not feel paralyzed on waking or falling asleep and does not have vivid dreamlike scenes upon awakening or falling asleep. She is not afraid to go to sleep. She does not have nightmares. She rarely remembers her dreams. She does not have racing thoughts. She denies sadness or depression. She rarely has anxiety. She does not have muscular tension. She rarely notices parts of her body jerking, rarely kicks at night, rarely has crawling and aching feelings in her legs and rarely has any kind of leg pain at night. She does not have morning jaw pain and does not grind her teeth during sleep. She frequently has bothered by pain during the day. She rarely is awakened by pain at night. She rarely wakes up feeling stiff in the morning. She occasionally wakes up with sore achy muscles and pain in the neck and spine. She had memory problems and tremors. She has occasional bowel disturbance. Normal bedtime is 11:00 pm, Falling asleep within 15 minutes, waking once at night to go the bathroom. She wakes the morning at 6:00 a.m.. Weekend schedule is the same. she occasionally takes a nap. She may feel refreshed after short nap. She is usually drowsy in the morning for 2 hours. She feels better in the afternoon compared to other times of day. Habits: never smoked tobacco. Caffeine 2 cups of coffee in the morning. No alcohol or recreational drugs. [facility] Past Medical History Medical History COPD (chronic obstructive pulmonary disease) CVA (cerebral vascular accident) Essential (primary) hypertension uncontrolled on medications GERD without esophagitis H/O vaginal delivery History of blood clots History of cerebral hemorrhage History of skin cancer History of stroke History of urinary incontinence Hyperlipidemia Hypertension Hyperthyroidism Restrictive pattern present on pulmonary function testing Rheumatoid arthritis Follows with Rheumatology Shortness of Breath TIA (transient ischemic attack) Following with [facility] Wheezing Surgical History Surgical History H/O abdominoplasty H/O angioplasty H/O brain surgery H/O shoulder surgery H/O Spinal surgery spinal tumor removed H/O: hysterectomy History of appendectomy History of knee replacement Family History Family History Father Family history of Alzheimer's disease Hypertension Hyperlipidemia Mother Hypertension Other Diabetes mellitus Nervous disorder Hypertension Heart disease Other Cerebrovascular accident Family history of arthritis Family history of thyroid disease Social History Social History Smoking status: Never smoker Alcohol intake: former Substance use: never Substance use type: does not use Gender identity (if verbalized by the patient): Female Spiritual care concerns: No Medications Home Medications Medication Instructions Recorded Con
[2020-09-27 19:46] VITALS: BMI 26.5
== END 2020-08-21 08:31 | disposition home or self-care (01) ==
LOC: ANHCSM 08:36
PROVIDERS: PCP Family Medicine; Visit Provider Nurse Practitioner Family
DX: G47.33 Obstructive sleep apnea (adult) (pediatric) (principal)
CPT/HCPCS: 95806

== ENCOUNTER → 2020-10-07 02:52 | Outpatient (CLI) | payer MEDICARE, SELFPAY ==
[2020-10-07 19:42] LABS: SARS-CoV-2 RNA PCR Negative
== END ==
PROVIDERS: PCP Family Medicine; Visit Provider Internal Medicine Critical Care Medicine
DX: R68.89 Other general symptoms and signs (principal); Z20.822 Contact with and (suspected) exposure to COVID-19
CPT/HCPCS: C9803; U0003; U0005

== ENCOUNTER 2020-10-10 09:00 | Outpatient (CLI) | payer MEDICARE, SELFPAY ==
--- NOTE | 2020-11-01 19:27 | WPDSLEEPSTUD ---
Sleep Study Ordering Provider: Nolvia Cota MD Interpreting Physician: Nolvia Cota MD Sleep Study Type: CPAP Titration Height: 1.6 m Weight: 68.039 kg Body Mass Index: 26.5 Neck Circumference (inches): 15.5 [place]: 11 Reason for Sleep Study Home sleep test using [facility] August 21, 2020 shows moderate central sleep apnea, AHI 26, 54% of the apneas central, lowest saturation 81%. presents for CPAP titration Sleep History Rosa Veronica is an 80 year old female who had a home sleep test Aug 21, 2020 with an AHI 26, mainly central events, with desaturation to 81%. She has COPD and exercise hypoxemia. She has rare snoring, and it is rarely loud. She does not have trouble sleeping with a cold, does not wake up gasping at night. She rarely sweats excessively at night. She does not notice her heart beating irregularly at night. She rarely falls asleep in the day, never while driving, and never during physical effort. She does not have loss of muscle tone with strong emotion. She does not have daytime difficulties due to sleepiness, she is retired. She does not feel paralyzed on waking or falling asleep and does not have vivid dreamlike scenes upon awakening or falling asleep. She is not afraid to go to sleep. She does not have nightmares. She rarely remembers her dreams. She does not have racing thoughts. She denies sadness or depression. She rarely has anxiety. She does not have muscular tension. She rarely notices parts of her body jerking, rarely kicks at night, rarely has crawling and aching feelings in her legs and rarely has any kind of leg pain at night. She does not have morning jaw pain and does not grind her teeth during sleep. She frequently has bothered by pain during the day. She rarely is awakened by pain at night. She rarely wakes up feeling stiff in the morning. She occasionally wakes up with sore achy muscles and pain in the neck and spine. She had memory problems and tremors. She has occasional bowel disturbance. Normal bedtime is 11:00 pm, Falling asleep within 15 minutes, waking once at night to go the bathroom. She wakes the morning at 6:00 a.m.. Weekend schedule is the same. she occasionally takes a nap. She may feel refreshed after short nap. She is usually drowsy in the morning for 2 hours. She feels better in the afternoon compared to other times of day. Habits: never smoked tobacco. Caffeine 2 cups of coffee in the morning. No alcohol or recreational drugs. FORMERLY [facility] Past Medical History Medical History Atrial fibrillation COPD (chronic obstructive pulmonary disease) CVA (cerebral vascular accident) Essential (primary) hypertension uncontrolled on medications GERD without esophagitis H/O vaginal delivery History of blood clots History of cerebral hemorrhage History of skin cancer History of stroke History of urinary incontinence Hyperlipidemia Hypertension Hyperthyroidism Restrictive pattern present on pulmonary function testing Rheumatoid arthritis Follows with Rheumatology Shortness of Breath TIA (transient ischemic attack) Following with [facility] Wheezing Surgical History Surgical History H/O abdominoplasty H/O angioplasty H/O brain surgery H/O shoulder surgery H/O Spinal surgery spinal tumor removed H/O: hysterectomy History of appendectomy History of knee replacement Family History Family History Father Family history of Alzheimer's disease Hypertension Hyperlipidemia Mother Hypertension Other Diabetes mellitus Nervous disorder Hypertension Heart disease Other Cerebrovascular accident Family history of arthritis Family history of thyroid disease Social History Social History Smoking status: Never smoker Second
[2020-11-01 20:07] VITALS: BMI 26.5
== END 2020-10-10 09:01 | disposition home or self-care (01) ==
LOC: ANHCSM 09:10
PROVIDERS: PCP Family Medicine; Visit Provider Internal Medicine Critical Care Medicine
DX: G47.33 Obstructive sleep apnea (adult) (pediatric) (principal)
CPT/HCPCS: 95811

== ENCOUNTER 2020-10-24 08:49 | Outpatient (CLI) | payer MEDICARE, SELFPAY ==
--- NOTE | ~2020-10-24 | XR_ITS ---
EXAMINATION: XR chest 2V EXAM DATE: 10/24/2020 09:15 INDICATION: Z01.818 - Encounter for other preprocedural examination HBP . TECHNIQUE: Frontal and lateral projections of the chest obtained and reviewed. Comparison is made to prior examination from 04/06/2018. FINDINGS: Cardiac monitoring device. The lungs are clear. There are no pleural effusions. The card iomediastinal silhouette is within normal limits. There is no pneumothorax suspected. Moderate lowe r thoracic dextroscoliosis. IMPRESSION: No acute cardiopulmonary findings. Reviewed, dictated and finalized at location A.
[2020-10-24 09:54] LABS: Basophils Absolute Auto 0.1 K/mm3 (0.0-0.1); Basophils Percent Auto 0.8 % (0.2-1.2); Eosinophils Absolute Auto 0.1 K/mm3 (0-0.3); Eosinophils Percent Auto 1.1 % (0-4.4); Hematocrit 46.9 % (37.0-47.0); Immature Granulocyte Absolute 0.03 K/mm3 (0.00-0.031); Immature Granulocyte Percent A 0.5 % (0-0.5); Immature Platelet Fraction Pct 5.3 % (0.9-11.2); Lymphocytes Absolute Auto 2.08 K/mm3 (0.9-3.2); Lymphocytes Percent Auto 33.5 % (18.3-44.2); Mean Corpuscular Hemoglobin 30.9 pg (26-34); Mean Corpuscular Volume 96.7 fl (80-100); Mean Platelet Volume 11.2 fl (7.4-10.4); Monocytes Absolute Auto 0.6 K/mm3 (0.1-0.6); Monocytes Percent Auto 8.9 % (2.6-8.5); Neutrophils Absolute Auto 3.4 K/mm3 (1.3-6.7); Neutrophils Percent Auto 55.2 % (45.5-73.1); Platelet Count Result 131 k/mm3 (150-375); Red Blood Count 4.85 M/mm3 (4.2-5.4); Red Cell Distribution Width 15.8 % (11.5-14.5); White Blood Count 6.2 K/mm3 (4.5-10.0)
[2020-10-24 10:04] LABS: Alanine Aminotransferase 27 U/L (4-35); Albumin Level 3.6 g/dL (3.5-5.1); Alkaline Phosphatase 82 U/L (38-126); Anion Gap 0 mmol/L (8-16); Aspartate Amino Transferase 36 U/L (14-36); Bilirubin,Total 0.7 mg/dL (0.2-1.3); Blood Urea Nitrogen 25 mg/dL (7-17); Calcium 9.3 mg/dL (8.4-10.2); Carbon Dioxide 36 mmol/L (22-30); Chloride 106 mmol/L (98-107); Estimated Glomerular Filt Rate > 60; Glucose 81 mg/dL (65-105); Potassium 3.7 mmol/L (3.4-5.0); Sodium 142 mmol/L (137-145)
== END 2020-10-24 08:50 | disposition home or self-care (01) ==
LOC: ANHSURGERY 08:55
PROVIDERS: PCP Family Medicine; Visit Provider Surgery
DX: Z01.812 Encounter for preprocedural laboratory examination (principal); M41.9 Scoliosis, unspecified
CPT/HCPCS: 36415; 71046; 80053; 85025; 85055

== ENCOUNTER → 2020-10-28 00:50 | Outpatient (CLI) | payer MEDICARE, SELFPAY ==
[2020-10-28 19:13] LABS: SARS-CoV-2 RNA PCR Negative
== END ==
PROVIDERS: PCP Family Medicine; Visit Provider Surgery
DX: Z20.822 Contact with and (suspected) exposure to COVID-19 (principal); Z01.812 Encounter for preprocedural laboratory examination
CPT/HCPCS: C9803; U0003; U0005

== ENCOUNTER 2020-10-31 00:23 | Day surgery (SDC) | payer MEDICARE, SELFPAY ==
[2020-10-20 13:32] VITALS: BMI 26.6
[2020-10-31] VITALS (9 sets, daily range): BP systolic 141–177; BP diastolic 71–101; PULSE 66–81; RESP 14–16; TEMP 36–36.6; O2SAT 96–100
[2020-10-31] MEDS: ENOXAPARIN 30 MG/0.3 ML SYRINGE SUB-Q (09:02)
[2020-10-31] MEDS: ACETAMINOPHEN 500 MG TABLET 1000 MG PO (09:30)
[2020-10-31] MEDS: LACTATED RINGERS 1,000 ML 30 ML IV CONT (09:30)
--- NOTE | 2020-10-31 10:00 | SUR.PREOP ---
Resting without complaints.
--- NOTE | 2020-10-31 10:31 | PM.HPGS ---
History of Present Illness History of Present Illness Consent: Risks, benefits, and alternatives ofFor scopic repair of an umbilical hernia with mesh have been discussed and questions answered. Patient agrees to proceed with procedure. Chief complaint: Umbilical Hernia Narrative: Rosa Veronica is a 80 year old white female who returned recently to the office for an evaluation of an umbilical hernia. Patient was seen by Dr Cota for pulmonology clearance for a laparoscopic umbilical hernia repair with mesh. I have reviewed these records and patient is at high surgical risk. Patient now requires O2 at 3 L/min with exertion and uses this at home. Patient reports her umbilical hernia has not changed since her last office visit. Reports that she is not using an abdominal support, reports she is not up and moving a lot at this time. Patient reports the the hernia does not really bother her at this time or cause pain. There is skin break down right at the hernia, that she uses silver gel on. Her only real complaint is the hernia does bulge out and can be seen through her clothes. She has mentioned that she has gained weight. Patient is undergoing physical therapy at [facility] to help with walk training. 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 She reports the hernia repair will need to be completed prior to any surgery for the vocal cord. Review of Systems Constitutional: Constitutional: Reports no additional constitutional complaints, Reports fatigue and Denies malaise Eyes: Eyes: Denies change in vision and Denies loss of vision ENT: Reports Normal hearing present, Denies change in voice, Denies dizziness, Denies hoarseness and Denies sore throat Cardiovascular: Cardiovascular: Denies chest pain, Denies leg edema and Denies dyspnea Respiratory: Respiratory: Denies cough, Denies dyspnea and Denies wheezing Gastrointestinal: Gastrointestinal: Denies hematochezia, Denies change in bowel habits and Denies heartburn Genitourinary: Genitourinary: Denies urinary frequency and Denies urinary incontinence Neurologic: Reports Normal hearing present, Denies confusion, Denies dizziness, Denies loss of vision, Denies memory loss and Denies seizure-like activity Psychiatric: Psychiatric: Denies confusion, Denies depression and Denies memory loss Endocrine: Endocrine: Denies cold intolerance and Reports fatigue Hematologic/Lymphatic: Hematologic/Lymphatic: Denies easy bleeding and Denies easy bruising Allergic/Immunologic: Allergic/Immunologic: Denies wheezing PMFSH Past Medical History Medical History (Updated 10/31/20 @ 10:53 by Alberto Reyez MD) Atrial fibrillation COPD (chronic obstructive pulmonary disease) CVA (cerebral vascular accident) Essential (primary) hypertension uncontrolled on medications GERD without esophagitis H/O vaginal delivery History of blood clots History of cerebral hemorrhage History of skin cancer History of stroke History of urinary incontinence Hyperlipidemia Hypertension Hyperthyroidism Restrictive pattern present on pulmonary function testing Rheumatoid arthritis Follows with Rheumatology Shortness of Breath TIA (transient ischemic attack) Following with [facility] Wheezing Surgical History Surgical History H/O abdominoplasty H/O angioplasty H/O brain surgery H/O shoulder surgery H/O Spinal surgery spinal tumor removed H/O: hysterectomy History of appendectomy History of knee replacement Family History Family History Father Family history of Alzheimer's disease Hypertension Hyperlipidemia Mother Hypertension Other Diabetes mellitus Nervous disorder Hypertension Heart disease Other Cerebrovascular accident Family history of arthritis Family history of thyroid disease Social History Social History (Reviewed 10/31/20
--- NOTE | 2020-10-31 11:02 | WPDANESEPPF ---
Anes - Initial Pre Proc Eval Procedure: Operation Date: 10/31/20 12:00 Proposed Procedures p Open Umbilical Hernia Repair With Sutures - Alberto Reyez MD Date/Time: 10/31/20 11:02 Surgeon: Alberto Reyez MD Pre Op Diagnosis: Umbilical Hernia Patient Data Age: 80 Gender: F Height: 1.6 m Weight: 68.5 kg Last Vital Signs Temp 36.0 C L 10/31/20 09:06 Pulse 78 10/31/20 09:06 Resp 16 10/31/20 09:06 BP 146/97 H 10/31/20 09:06 Pulse Ox 96 10/31/20 09:06 Allergies Allergy/AdvReac Type Severity Reaction Status Date / Time No Known Allergies Allergy Verified 10/31/20 08:16 Home Medications Medication Instructions Recorded Confirmed Type ascorbic acid (vitamin C) 500 mg 500 mg PO DAILY 07/02/19 10/31/20 History capsule cholecalciferol (vitamin D3) 25 1,000 unit PO DAILY 07/02/19 10/31/20 History mcg (1,000 unit) capsule omeprazole 40 mg capsule,delayed 40 mg PO DAILY 07/02/19 10/31/20 History release atorvastatin 40 mg tablet 40 mg PO DAILY 03/06/20 10/31/20 History albuterol sulfate 90 mcg/actuation 1 inhalation INHALATION Q4H PRN 30 05/08/20 10/20/20 Rx aerosol inhaler Days #26 gm potassium chloride 10 meq PO DAILY 05/24/20 10/31/20 History aspirin 81 mg tablet,delayed 81 mg PO DAILY 05/25/20 10/31/20 History release folic acid 400 mcg tablet 0.4 mg PO DAILY 05/25/20 10/31/20 History methylprednisolone 4 mg tablet 6 mg PO DAILY tablet 08/23/20 10/31/20 History apixaban 5 mg tablet 2.5 mg PO .prn tablet 09/21/20 10/31/20 History eszopiclone 3 mg tablet 3 mg PO ONCE #1 tablet 10/10/20 10/31/20 Rx abatacept [Orencia] 125 mg SUBCUT WEEKLY 10/20/20 10/31/20 History biotin 10,000 mcg PO DAILY 10/20/20 10/31/20 History calcium carbonate-vitamin D3 1 cap PO DAILY 10/20/20 10/31/20 History [Calcium 600 + D(3)] lisinopril-hydrochlorothiazide 1 tablet PO DAILY 10/20/20 10/31/20 History magnesium 250 mg PO DAILY 10/20/20 10/31/20 History Patient hx anesthesia problems: none Family hx anesthesia problems: none [facility] Past Medical History Medical History (Updated 10/31/20 @ 10:53 by Alberto Reyze MD) Atrial fibrillation COPD (chronic obstructive pulmonary disease) CVA (cerebral vascular accident) Essential (primary) hypertension uncontrolled on medications GERD without esophagitis H/O vaginal delivery History of blood clots History of cerebral hemorrhage History of skin cancer History of stroke History of urinary incontinence Hyperlipidemia Hypertension Hyperthyroidism Restrictive pattern present on pulmonary function testing Rheumatoid arthritis Follows with Rheumatology Shortness of Breath TIA (transient ischemic attack) Following with [facility] Wheezing Surgical History Surgical History H/O abdominoplasty H/O angioplasty H/O brain surgery H/O shoulder surgery H/O Spinal surgery spinal tumor removed H/O: hysterectomy History of appendectomy History of knee replacement Family History Family History Father Family history of Alzheimer's disease Hypertension Hyperlipidemia Mother Hypertension Other Diabetes mellitus Nervous disorder Hypertension Heart disease Other Cerebrovascular accident Family history of arthritis Family history of thyroid disease Social History Social History Smoking status: Never smoker Second hand tobacco smoke exposure: No Alcohol intake: never Substance use: never Substance use type: does not use Living arrangements: with friend(s) Additional living arrangements comments: LIVES WITH SIGNIFICANT OTHER Gender identity (if verbalized by the patient): Female Spiritual care concerns: No Anes - Eval Final PreProcedure Day of Procedure 10/31/20 11:02 Patient weight: overweight Heart: regular rate and rhy
--- NOTE | 2020-10-31 11:32 | WPDHPUPDATE1 ---
History and Physical Update Update Date/Time: 10/31/20 11:32 History and Physical has been reviewed, including an updated exam of the patient. There are NO changes in the patient's condition. Risks, benefits, and alternatives have been discussed and questions answered. Patient agrees to proceed with procedure.
[2020-10-31] MEDS: ceFAZolin 2 GM/D5W 50 ML 2 GM/50 ML BAG IVPB (12:15)
[2020-10-31] MEDS: BUPIVACAINE/EPINEPHRINE 0.5% 30 ML VIAL 20 ML INFILTRATE (12:20)
--- NOTE | 2020-11-01 10:22 | PM.PROC ---
Procedure Note - Detailed Date of procedure: 11/01/20 Pre-op diagnosis: Umbilical Hernia Post-op diagnosis: same Procedure performed: Open umbilical hernia repair with sutures Description of procedure: Patient was seen in the preoperative area and marked. I confirmed the plan of open umbilical hernia repair with sutures with the patient and her significant other. Following this the patient was taken to the operating room and general anesthesia induced by Kieran anesthesia. Patient had oral tracheal intubation. Her abdomen was prepped and draped in usual sterile fashion exposing the umbilicus. Time-out was performed confirming patient and site of surgery Following this local anesthetic was infiltrated into a curvilinear area just inferior to the umbilical bulge. Incision was made with a 15 blade knife and we carefully dissected directly down to the fascia underneath the incision. We lifted a small inferior skin flap with Bovie cautery. Following this taking good precautions we carefully lifted the umbilical skin off the umbilical hernia sac. The sac was very thin and some of it stuck to the underside of the skin. Once the skin had been completely freed from the underlying hernia contents and sac was carefully dissected down circumferentially to the fascial borders. I carefully dissected under these both cephalad and inferiorly. It appeared to be omentum that was up in the hernia and this was reduced into the abdomen. Following this a [id number] closure was completed with interrupted 0 Ethibond sutures. Approximately 4 sutures were placed in this manner and then 1 suture after these were pulled up was placed in simple manner between the 2 sutures that were most toward her left side. The sutures were placed initially and then all tied subsequent sequentially from right to left and this nicely closed the fascial defect with overlapping fascia. Local anesthetic was infiltrated into the surrounding tissues at the end of the procedure and a few subcutaneous sutures of 3 0 Vicryl were placed to approximate the skin of the umbilicus to the underlying fascia and to the inferior edge of the wound. A running subcuticular closure of 4 0 Monocryl was used to complete the closure and surgical glue applied to the incision. Patient tolerated the procedure well was taken recovery room in good condition. Estimated blood loss was approximately 3 cc. Anesthesia: HOLDEN Surgeon: Alberto Reyez MD Asp Developer: BISI Gonzalez, OR respiratory assistant. Estimated blood loss (mL): 3 Drains: No Packing: No Pathology: none sent Complications: No immediate complications Condition: stable Disposition: PACU Findings: An approximately 2 cm fascial defect at the level of the umbilicus. One old permanent suture was seen in this fascial area. No bowel identified at the time of the surgery.
== END 2020-10-31 14:30 | disposition home or self-care (01) ==
PROVIDERS: PCP Family Medicine; Visit Provider Surgery
PROC: (CPT 49585; principal; 2020-10-31 12:00)
DX: K42.9 Umbilical hernia without obstruction or gangrene (principal); I10 Essential (primary) hypertension; E78.5 Hyperlipidemia, unspecified; I48.91 Unspecified atrial fibrillation; J44.9 Chronic obstructive pulmonary disease, unspecified; K21.9 Gastro-esophageal reflux disease without esophagitis; M06.9 Rheumatoid arthritis, unspecified; E05.90 Thyrotoxicosis, unspecified without thyrotoxic crisis or storm; Z86.73 Personal history of transient ischemic attack (TIA), and cerebral infarction without residual deficits; Z79.01 Long term (current) use of anticoagulants; Z79.82 Long term (current) use of aspirin; Z79.51 Long term (current) use of inhaled steroids; Z99.81 Dependence on supplemental oxygen
CPT/HCPCS: 49585; A9270; J0690; J1100; J1650; J2405; J2704; J3010; J7120

== ENCOUNTER → 2020-12-01 10:31 | Outpatient (CLI) | payer MEDICARE, SELFPAY ==
[2020-12-01 21:02] LABS: SARS-CoV-2 RNA PCR Negative
== END ==
PROVIDERS: PCP Family Medicine; Visit Provider Nurse Practitioner
DX: Z20.822 Contact with and (suspected) exposure to COVID-19 (principal)
CPT/HCPCS: C9803; U0003; U0005

== ENCOUNTER → 2020-12-05 09:17 | Outpatient (CLI) | payer MEDICARE, SELFPAY ==
--- NOTE | ~2020-12-05 | XR_ITS ---
XR chest 2V 12/05/2020 09:36 Indication: Fever. Loss of appetite. Procedure: PA and lateral views of the chest Comparison: Comparison to multiple prior studies sequentially, with oldest reviewed study dated 06/11. 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 Heart size upper normal. There is a cardiac monitoring device. There is chronic left perihilar atelectasis /scarring. No acute focal pneumonia, edema, pleural effusion or pneumothorax. Impression: 1: No acute cardiopulmonary disease. Reviewed, dictated and finalized at location B. Impression: 1: No acute cardiopulmonary disease.
== END ==
PROVIDERS: PCP Nurse Practitioner; Visit Provider Nurse Practitioner
DX: R50.9 Fever, unspecified (principal); R06.02 Shortness of breath
CPT/HCPCS: 71046

== ENCOUNTER 2021-01-23 08:38 | Outpatient (CLI) | payer MEDICARE, SELFPAY ==
--- NOTE | ~2021-01-23 | DEXA_ITS ---
Bone Density Report Name: Rosa Veronica Age: 80 Sex: Female Ethnicity: White Date of : 1940 Indication: postmenopausal; height loss; hysterectomy; rheumatoid arthritis; Referring Provider: Neetu Evans Study: Bone densitometry was performed. Exam Date: January 23, 2021 Accession number: [id number] Bone Density: Region BMD T-score Z-score Classification AP Spine (L1-L4) 1.016 -0.3 2.5 Normal Femoral Neck (Left) 0.653 -1.8 0.6 Osteopenia Total Hip (Left) 0.823 -1.0 1.2 Normal Total Hip Bilateral Avg 0.817 -1.1 1.1 Osteopenia Femoral Neck (Right) 0.646 -1.8 0.5 Osteopenia Total Hip (Right) 0.809 -1.1 1.0 Osteopenia World Health Organization criteria for BMD impression classify patients as: Normal (T-score at or above -1.0), Osteopenia (T-score between -1.0 and -2.5), or Osteoporosis (T-score at or below -2.5). 10-year Fracture Risk(1): Major Osteoporotic Fracture 19% Hip Fracture 5.8% Reported Risk Factors: [place] (), Neck BMD=0.646, BMI=28.3, rheumatoid arthritis (1) FRAX(R) Version 3.08. Fracture probability calculated for an untreated patient. Fracture probability may be lower if the patient has received treatment. Previous Exams: Region Exam Age BMD T-score BMD Change BMD Change Date g/cm2 vs Baseline vs Previous AP Spine(L1-L4) 01/23/2021 80 1.016 -0.3 0.089(9.6%)# 0.046(4.8%)* 01/07/2020 79 0.970 -0.7 0.043(4.6%)# 0.001(0.1%)# 04/22/2011 70 0.969 -0.7 0.042(4.5%)* 0.042(4.5%)* 05/21/2007 66 0.927 -1.1 Total Hip(Left) 01/23/2021 80 0.823 -1.0 -0.083(-9.2%)# -0.016(-1.9%) 01/07/2020 79 0.839 -0.8 -0.067(-7.4%)# -0.039(-4.5%)# 04/22/2011 70 0.878 -0.5 -0.028(-3.0%)* -0.028(-3.0%)* 05/21/2007 66 0.906 -0.3 Total Hip(Right) 01/23/2021 80 0.809 -1.1 -0.107(-11.7%) -0.017(-2.0%) 01/07/2020 79 0.826 -1.0 -0.091(-9.9%)# -0.077(-8.5%)# 04/22/2011 70 0.902 -0.3 -0.014(-1.5%) -0.014(-1.5%) 05/21/2007 66 0.916 -0.2 *Denotes significance at 95% confidence level, LSC for AP Spine = 0.022 g/cm2, LSC for Total Hip = 0.027 g/cm2 Clinical Information Provided by Patient: Has rheumatoid arthritis Has used the following medications: Vitamin D, Calcium Has the following medical conditions: Hysterectomy Patient maximum height was 64 Menopause Age: 32 No regular weight bearing exercise Drinks caffeinated beverages Onset of menses at age 10 Number of children 3
--- NOTE | ~2021-01-23 | US_ITS ---
EXAMINATION: US thyroid EXAM DATE: 01/23/2021 09:32 INDICATION: E04.1 - Nontoxic single thyroid nodule, goiter. Left thyroid largest nodule biopsy 2017. TECHNIQUE: Multiple grayscale and Doppler images of the thyroid were obtained (by a technologist who performed the scan) and subsequently reviewed. Individual nodules and recommendations may be reporte d in accordance with TI-RADS system as designated by the 2017 ACR White Paper TI-RADS committee. Comp arison is made to prior examination from 01/07/2020, 03/28/2017. FINDINGS: Right there are lobe measures 4.3 x 2.1 x 1.7 cm, the left measuring 4.7 x 2.5 x 1.7 cm. There is het erogeneous echogenicity with multiple thyroid nodules bilaterally. 2 largest nodules are in the left thyroid lobe, category TR 4 lesions, largest measuring 2.6 x 2.0 x 2.7 cm (previously biopsied) and next largest measuring 2.0 x 1.8 x 1.0 cm. Compared to 2017, there i s been modest interval growth in some of these nodules. Biopsy of multiple nodules typically not monica cated. IMPRESSION: Multinodular goiter. Reviewed, dictated and finalized at location B. IMPRESSION: Multinodular goiter.
== END 2021-01-23 08:39 | disposition home or self-care (01) ==
LOC: ANHIMG 08:41
PROVIDERS: PCP Nurse Practitioner; Visit Provider Internal Medicine Endocrinology, Diabetes & Metabolism
DX: Z78.0 Asymptomatic menopausal state (principal); E04.1 Nontoxic single thyroid nodule; E04.9 Nontoxic goiter, unspecified; M85.851 Other specified disorders of bone density and structure, right thigh; M85.852 Other specified disorders of bone density and structure, left thigh
CPT/HCPCS: 76536; 77080

== ENCOUNTER 2021-03-31 09:13 | Emergency (ER) | payer MEDICARE, SELFPAY ==
[2021-03-31] VITALS (7 sets, daily range): BP systolic 99–131; BP diastolic 58–91; PULSE 74–104; RESP 16–20; TEMP 36.4; O2SAT 96–97
--- NOTE | ~2021-03-31 | US_ITS ---
US venous doppler LE RT DATE: 03/31/2021 10:39 INDICATION: Right leg swelling, erythema, pain TECHNIQUE: Real-time imaging and color flow imaging and Doppler analysis of the veins of the right lo wer extremity COMPARISON: None FINDINGS: The right greater saphenous vein is patent. There is spontaneous and phasic flow and normal augmentation and color flow signal and normal compression of the deep veins of the right lower extre mity. IMPRESSION: No evidence of deep venous thrombosis of right lower extremity Reviewed, dictated and finalized at Location [facility]. Reviewed, dictated and finalized at location A.
--- NOTE | ~2021-03-31 | XR_ITS ---
XR chest 1V portable DATE: 03/31/2021 10:13 INDICATION: Weakness TECHNIQUE: Portable upright AP view on 03/31/2021 1008 hours COMPARISON: 12/05/2020 PA and lateral chest FINDINGS: Atelectatic monitor device overlies the left chest. Cardiomegaly. Aortic calcification, ectasia and unfolding. There is mild to moderate elevation left leaf of diaphragm, also noted on 12/05/2020. There is mild infiltrate or atelectasis in the lung bases. No pleural effusion or pulmonary vascular congestion or pneumothorax is evident. Radiopaque sutures overlie the lower mid cervical area. Diffuse osteopenia. Dextroscoliosis and degenerative spurring of the thoracic spine IMPRESSION: Cardiomegaly Aortic atherosclerosis Mild bibasilar infiltrate or atelectasis Reviewed, dictated and finalized at location A.
--- NOTE | ~2021-03-31 | CT_ITS ---
EXAMINATION: CT abdomen pelvis w con DATE: 03/31/2021 11:03 INDICATION: Generalized abdominal pain, lower abdominal pain, nausea TECHNIQUE: Computed tomography (CT) of the abdomen and pelvis was performed with 100 cc Omnipaque 350 intravenous contrast. Automated exposure control and iterative reconstruction technique were employe d. Exam dose: 401.97 mGy-cm total exam DLP. COMPARISON: 03/2020 CT abdomen pelvis FINDINGS: Status post bilateral augmentation mammoplasty. Cardiomegaly. Coronary atherosclerosis. No pericardial or pleural effusion. Minimal dependent atelectasis in the lower lobes. The liver, spleen, pancreas and adrenal glands are unremarkable. The gallbladder is present. No gallb ladder wall thickening or pericholecystic fluid or fat stranding. No bile duct or pancreatic duct dil atation. No pancreatic calcification. No renal mass lesion or urinary tract calculus or hydroureteronephrosis. The urinary bladder is unrem arkable. Status post hysterectomy. There are numerous diverticula of the sigmoid and to a lesser extent transverse colon; no CT evidence of diverticulitis. No bowel obstruction, bowel wall thickening, pneumatosis or intraperitoneal free air. Fat-containing umbilical hernia. No suspicious osteolytic or osteoblastic lesions. Degenerative disc disease at L4-5 with grade 1 anterolisthesis at level due to degenerative change at the apophyseal joints. IMPRESSION: Cardiomegaly Minimal dependent atelectasis in the lower lobes Diverticulosis of the colon; no CT evidence of diverticulitis Reviewed, dictated and finalized at [facility]. Reviewed, dictated and finalized at location A.
[2021-03-31 09:50] LABS: Basophils Absolute Auto 0.1 K/mm3 (0.0-0.1); Basophils Percent Auto 0.9 % (0.2-1.2); Eosinophils Percent Auto 0.6 % (0-4.4); Hematocrit 46.9 % (37.0-47.0); Hemoglobin 14.9 g/dL (12.0-15.0); Immature Granulocyte Absolute 0.02 K/mm3 (0.00-0.031); Immature Granulocyte Percent A 0.3 % (0-0.5); Lymphocytes Absolute Auto 2.49 K/mm3 (0.9-3.2); Lymphocytes Percent Auto 36.6 % (18.3-44.2); Mean Corpuscular HGB Conc 31.8 g/dl (32-36); Mean Corpuscular Hemoglobin 29.7 pg (26-34); Mean Corpuscular Volume 93.4 fl (80-100); Mean Platelet Volume 10.8 fl (7.4-10.4); Monocytes Absolute Auto 0.7 K/mm3 (0.1-0.6); Monocytes Percent Auto 10.1 % (2.6-8.5); Neutrophils Absolute Auto 3.5 K/mm3 (1.3-6.7); Neutrophils Percent Auto 51.5 % (45.5-73.1); Platelet Count Result 188 k/mm3 (150-375); Red Blood Count 5.02 M/mm3 (4.2-5.4); Red Cell Distribution Width 16.9 % (11.5-14.5); White Blood Count 6.8 K/mm3 (4.5-10.0)
[2021-03-31 10:02] LABS: Alanine Aminotransferase 18 U/L (4-35); Albumin Level 3.6 g/dL (3.5-5.1); Alkaline Phosphatase 136 U/L (38-126); Anion Gap 8 mmol/L (8-16); Aspartate Amino Transferase 45 U/L (14-36); Bilirubin,Total 1.1 mg/dL (0.2-1.3); Blood Urea Nitrogen 17 mg/dL (7-17); Calcium 9.2 mg/dL (8.4-10.2); Carbon Dioxide 26 mmol/L (22-30); Chloride 104 mmol/L (98-107); Estimated CRCL calculation 27 ml/min; Estimated Glomerular Filt Rate 43; Glucose 82 mg/dL (65-110); Lipase 190 U/L (23-300); Potassium 3.7 mmol/L (3.4-5.0); Sodium 138 mmol/L (137-145)
--- NOTE | 2021-03-31 10:07 | ED.ABDPAIN ---
HPI - Abdominal Pain General Chief Complaint: Abdominal Pain Stated Complaint: nausea and loss of appetite x4 days Time Seen by Provider: 03/31/21 09:20 Source: patient and RN notes reviewed Mode of arrival: ambulatory Limitations: no limitations History of Present Illness HPI narrative: This is an 80 year old female who presents for evaluation of nausea and lower abdominal pain. Patient and her states patient has been nauseated and she has not eaten much in past 4-5 days . She reports associated constant lower abdominal pain. Patient states she finally came to ER because her right leg became tender. Patient reports bilateral leg redness but her right is worse than left, and her right leg became tender today. She denies fever , chills, vomiting or diarrhea. She reports a normal bowel movement this morning. She has not taken anything for her symptom. Her notes patient was given dose of Reclast infusion on Friday. She has received that medication yearly for the past 2 years. Related Data Home Medications Medication Instructions Recorded Confirmed ascorbic acid (vitamin C) 500 mg 500 mg PO DAILY 07/02/19 02/21/21 capsule omeprazole 40 mg capsule,delayed 40 mg PO DAILY 07/02/19 02/21/21 release atorvastatin 40 mg tablet 40 mg PO DAILY 03/06/20 02/21/21 potassium chloride 10 meq PO DAILY 05/24/20 02/21/21 folic acid 400 mcg tablet 0.4 mg PO DAILY 05/25/20 02/21/21 methylprednisolone 4 mg tablet 6 mg PO DAILY tablet 08/23/20 02/21/21 apixaban 5 mg tablet 2.5 mg PO .prn tablet 09/21/20 02/21/21 Calcium 600 + D(3) 1 cap PO DAILY 10/20/20 02/21/21 Orencia 125 mg SUBCUT WEEKLY 10/20/20 02/21/21 biotin 10,000 mcg PO DAILY 10/20/20 02/21/21 lisinopril-hydrochlorothiazide 1 tablet PO DAILY 10/20/20 02/21/21 magnesium 250 mg PO DAILY 10/20/20 02/21/21 Allergies Allergy/AdvReac Type Severity Reaction Status Date / Time No Known Allergies Allergy Verified 03/31/21 09:29 Review of Systems Review of Systems: All systems reviewed & are unremarkable except as noted in HPI and below Constitutional: Constitutional: Reports fatigue and Denies fever(s) ENT: Denies sore throat Cardiovascular: Cardiovascular: Denies chest pain Respiratory: Respiratory: Reports cough, Denies dyspnea and Denies wheezing Gastrointestinal: Gastrointestinal: Reports abdominal pain, Denies diarrhea, Reports nausea and Denies vomiting PMFSH Past Medical History Medical History Atrial fibrillation COPD (chronic obstructive pulmonary disease) Essential (primary) hypertension uncontrolled on medications GERD without esophagitis H/O vaginal delivery History of blood clots History of cerebral hemorrhage History of skin cancer History of stroke History of urinary incontinence Hyperlipidemia Hypertension Hyperthyroidism Pulmonary embolism Restrictive pattern present on pulmonary function testing Rheumatoid arthritis Follows with Rheumatology Surgical History Surgical History H/O abdominoplasty H/O angioplasty H/O brain surgery H/O shoulder surgery H/O Spinal surgery spinal tumor removed H/O: hysterectomy History of appendectomy History of knee replacement Family History Family History Father Family history of Alzheimer's disease Hypertension Hyperlipidemia Mother Hypertension Other Diabetes mellitus Nervous disorder Hypertension Heart disease Other Cerebrovascular accident Family history of arthritis Family history of thyroid disease Social History Social History Smoking status: Never smoker Second hand tobacco smoke exposure: No Alcohol intake: never Substance use: never Substance use type: does not use Additional living arrangements comments: LIVES WITH
[2021-03-31 10:57] LABS: CRP 6.9 mg/dL (<1.0)
[2021-03-31 10:59] LABS: Prothrombin Time 12.8 Seconds (11.1-14.7)
[2021-03-31 11:00] LABS: Partial Thromboplastin Time 30.8 SECONDS (22.3-36.8)
[2021-03-31] MEDS: SODIUM CHLORIDE 0.9% IV 1,000 ML 999 ML IV CONT (11:01)
[2021-03-31] MEDS: PANTOPRAZOLE SODIUM IV 40 MG VIAL IV PUSH (11:01)
[2021-03-31] MEDS: ONDANSETRON INJ 4 MG/2 ML VIAL IV PUSH (11:01)
[2021-03-31 12:15] LABS: Lactic Acid Reflex 1.6 mmol/L (0.7-2.1)
[2021-03-31 13:28] LABS: Add Urine Microscopic? YES; Appearance Urine Cloudy (Clear); Bacteria Urine Trace /hpf; Bilirubin Urine Negative (Negative); Blood Urine Negative (Negative); Color Urine Yellow (Yellow); Glucose Urine UA 1+ mg/dL (Negative); Ketones Urine 1+ mg/dL (Negative); Leukocyte Esterase Ur Negative LEU/UL (Negative); Mucus Urine Rare /lpf; Nitrate Urine Negative (Negative); Protein Urine 2+ mg/dL (Negative); Squamous Epithelial Cell Urine Many /hpf (Few); Transitional Epi Cells Urine Rare /hpf (None Seen); Urobilinogen Urine Negative mg/dL (<2.0); WBC Urine 51-75 /hpf
[2021-03-31 13:33] LABS: Specific Grav Ur > 1.060 (1.001-1.035)
== END 2021-03-31 14:12 | disposition home or self-care (01) ==
PROVIDERS: Emergency Provider General Practice; PCP Family Medicine
DX: N39.0 Urinary tract infection, site not specified (principal); L03.115 Cellulitis of right lower limb; R11.0 Nausea; I48.91 Unspecified atrial fibrillation; J44.9 Chronic obstructive pulmonary disease, unspecified; I10 Essential (primary) hypertension; K21.9 Gastro-esophageal reflux disease without esophagitis; E78.5 Hyperlipidemia, unspecified; E05.90 Thyrotoxicosis, unspecified without thyrotoxic crisis or storm; Z86.711 Personal history of pulmonary embolism; M06.9 Rheumatoid arthritis, unspecified; Z86.73 Personal history of transient ischemic attack (TIA), and cerebral infarction without residual deficits; Z85.828 Personal history of other malignant neoplasm of skin; Z96.659 Presence of unspecified artificial knee joint; Z98.62 Peripheral vascular angioplasty status; I70.0 Atherosclerosis of aorta; I51.7 Cardiomegaly; K57.90 Diverticulosis of intestine, part unspecified, without perforation or abscess without bleeding
CPT/HCPCS: 36415; 71045; 74177; 80053; 81001; 83605; 83690; 85025; 85610; 85730; 86140; 87040; 87086; 93971; 96361; 96374; 96375; 99284; C9113; J0690; J2405; J7030; Q9967

== ENCOUNTER 2021-04-05 17:41 | Inpatient (IN) | payer MEDICARE, SELFPAY ==
[2021-04-05] VITALS (8 sets, daily range): BP systolic 113–141; BP diastolic 71–96; PULSE 90–103; RESP 16–24; TEMP 36.3–36.9; O2SAT 74–96
--- NOTE | ~2021-04-05 | XR_ITS ---
EXAMINATION: XR chest 2V DATE: 04/08/2021 08:42 INDICATION: Hypoxia with decreased oxygen saturation TECHNIQUE: frontal view of the chest was obtained. COMPARISON: Chest radiograph dated 03/31/21 FINDINGS: Persistent mild elevation of the left hemidiaphragm. Small bilateral pleural effusions with blunting at the posterior sulci on the lateral projection. No other airspace opacities, pulmonary edema or pne umothorax. Cardiomegaly. 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 Bilateral breast implants. Postop erative changes at the lower cervical spine with laminectomy defects and several sutures. S-shaped th oracolumbar scoliosis. Moderate degenerative skeletal changes in the spine and bilateral shoulders. IMPRESSION: 1. Small bilateral pleural effusions with chronic mild elevation of the left hemidiaphragm. 2. Cardiomegaly. Reviewed, dictated and finalized at location A. IMPRESSION: 1. Small bilateral pleural effusions with chronic mild elevation of the left he midiaphragm. 2. Cardiomegaly.
--- NOTE | ~2021-04-05 | CT_ITS ---
EXAMINATION: CT abdomen pelvis wo con DATE: 04/05/2021 22:20 INDICATION: Abdominal pain, diarrhea, blood in stool TECHNIQUE: Computed tomography (CT) of the abdomen and pelvis was performed without intravenous contr ast. Automated exposure control and iterative reconstruction technique were employed. Exam dose: 745 .73 mGy-cm total exam DLP. COMPARISON: 03/31/2021 CT abdomen pelvis FINDINGS: Status post bilateral augmentation mammoplasty. Mild cardiomegaly. No pericardial or pleural effusion. There is bibasilar atelectasis Multiple small stones are noted in the dependent aspect of the gallbladder and cystic duct. No gallbl adder wall thickening or pericholecystic fluid or fat stranding is detected. No bile duct or pancreat ic duct dilatation. No pancreatic mass lesion or calcification is detected. Normal splenic size. Normal morphology of the adrenal glands. No renal mass lesion is detected. Approximately 2.5 mm nonobstructing lower pole left renal calculus. No ureteral calculus or hydrouret eronephrosis is noted on either side. There is atherosclerotic calcification of the abdominal aorta but no aneurysm. No intraperitoneal or retroperitoneal or pelvic mass lesion or adenopathy or ascites. There is diverticulosis of left and right colon; no CT evidence of diverticulitis. No bowel obstructi on, bowel wall thickening, pneumatosis or intraperitoneal free air. Status post hysterectomy. The urinary bladder is unremarkable. Right ventral fat-containing abdominal wall hernia measuring up to 5 cm transverse dimension. There are bilateral inguinal hernias containing fat, also containing nonobstructed nonstrangulated lo op of small bowel in the right. No suspicious osteolytic or osteoblastic lesions. IMPRESSION: Diverticulosis of left and right colon; no CT evidence of diverticulitis Cholelithiasis 2.5 mm nonobstructing lower pole left renal calculus Status post hysterectomy Reviewed, dictated and finalized at [facility] Reviewed, dictated and finalized at [facility]. IMPRESSION: Diverticulosis of left and right colon; no CT evidence of divertic ulitis Cholelithiasis 2.5 mm nonobstructing lower pole left renal calculus Status post hysterectomy
[2021-04-05 18:04] LABS: Basophils Percent Auto 0.7 % (0.2-1.2); Eosinophils Absolute Auto 0.1 K/mm3 (0-0.3); Eosinophils Percent Auto 1.8 % (0-4.4); Hematocrit 43.1 % (37.0-47.0); Immature Granulocyte Absolute 0.02 K/mm3 (0.00-0.031); Immature Granulocyte Percent A 0.3 % (0-0.5); Lymphocytes Absolute Auto 1.96 K/mm3 (0.9-3.2); Lymphocytes Percent Auto 32.2 % (18.3-44.2); Mean Corpuscular HGB Conc 32.5 g/dl (32-36); Mean Corpuscular Hemoglobin 29.9 pg (26-34); Mean Corpuscular Volume 91.9 fl (80-100); Mean Platelet Volume 10.4 fl (7.4-10.4); Monocytes Absolute Auto 0.5 K/mm3 (0.1-0.6); Monocytes Percent Auto 8.2 % (2.6-8.5); Neutrophils Absolute Auto 3.5 K/mm3 (1.3-6.7); Neutrophils Percent Auto 56.8 % (45.5-73.1); Platelet Count Result 138 k/mm3 (150-375); Red Blood Count 4.69 M/mm3 (4.2-5.4); Red Cell Distribution Width 16.4 % (11.5-14.5); White Blood Count 6.1 K/mm3 (4.5-10.0)
[2021-04-05 18:18] LABS: Alanine Aminotransferase 15 U/L (4-35); Albumin Level 3.2 g/dL (3.5-5.1); Alkaline Phosphatase 158 U/L (38-126); Anion Gap 9 mmol/L (8-16); Aspartate Amino Transferase 39 U/L (14-36); Bilirubin,Total 0.5 mg/dL (0.2-1.3); Blood Urea Nitrogen 29 mg/dL (7-17); Calcium 7.7 mg/dL (8.4-10.2); Carbon Dioxide 24 mmol/L (22-30); Chloride 106 mmol/L (98-107); Estimated CRCL calculation 16 ml/min; Estimated Glomerular Filt Rate 23; Glucose 128 mg/dL (65-110); Lipase 276 U/L (23-300); Potassium 2.8 mmol/L (3.4-5.0); Sodium 139 mmol/L (137-145)
--- NOTE | 2021-04-05 19:57 | ED.NAVMDI ---
HPI - Nausea/Vomiting/Diarrhea General Chief complaint: Nausea/Vomiting/Diarrhea Stated complaint: vomiting Time Seen by Provider: 04/05/21 19:46 Source: patient Mode of arrival: ambulatory Limitations: no limitations History of Present Illness HPI Narrative: Patient is an 80-year-old female complain of nausea, vomiting, blood in her stool and lower abdominal pain x2 weeks. Patient states that she has been unable to keep anything down for the past few days. Patient states that she was seen here last week due to lower extremity cellulitis and lower abdominal pain, had labs and CT scan done, and was prescribed oral antibiotics, cefuroxime, which she thinks is making her nausea and vomiting worse. Patient denies any chest pain, shortness of breath, abdominal pain, diarrhea, fever or chills. states no no no not the reason why she is here not because of nausea vomiting it is because she has rectal bleeding that started tonight and it was a lot Related Data Home Medications Medication Instructions Recorded Confirmed ascorbic acid (vitamin C) 500 mg 500 mg PO DAILY 07/02/19 04/02/21 capsule omeprazole 40 mg capsule,delayed 40 mg PO DAILY 07/02/19 04/02/21 release atorvastatin 40 mg tablet 40 mg PO DAILY 03/06/20 04/02/21 potassium chloride 10 meq PO DAILY 05/24/20 04/02/21 folic acid 400 mcg tablet 0.4 mg PO DAILY 05/25/20 04/02/21 apixaban 5 mg tablet 2.5 mg PO .prn tablet 09/21/20 04/02/21 Calcium 600 + D(3) 1 cap PO DAILY 10/20/20 04/02/21 Orencia 125 mg SUBCUT WEEKLY 10/20/20 04/02/21 biotin 10,000 mcg PO DAILY 10/20/20 04/02/21 lisinopril-hydrochlorothiazide 1 tablet PO DAILY 10/20/20 04/02/21 magnesium 250 mg PO DAILY 10/20/20 04/02/21 Allergies Allergy/AdvReac Type Severity Reaction Status Date / Time No Known Allergies Allergy Verified 04/05/21 19:40 Review of Systems Review of Systems: All systems reviewed & are unremarkable except as noted in HPI and below Constitutional: Constitutional: Denies body ache(s), Denies chills, Denies excessive sweating, Denies fatigue, Denies fever(s), Denies headache(s), Denies lethargy, Denies malaise, Denies weakness and Denies weight loss Eyes: Eyes: Denies blurry vision, Denies change in vision and Denies loss of vision ENT: Denies dizziness, Denies ear discharge, Denies headache(s), Denies lip swelling, Denies epistaxis, Denies nasal congestion, Denies neck pain, Denies throat swelling and Denies tongue swelling Cardiovascular: Cardiovascular: Denies chest pain, Denies chest pain at rest, Denies chest pain with activity, Denies diaphoresis, Denies rapid heart rate, Denies edema, Denies irregular heart rhythm, Denies lightheadedness, Denies palpitations, Denies dyspnea and Denies dyspnea on exertion Respiratory: Respiratory: Denies chest congestion, Denies cough, Denies hemoptysis, Denies dyspnea and Denies dyspnea on exertion Gastrointestinal: Gastrointestinal: Denies abdominal pain, Denies melena, Denies hematochezia, Denies diarrhea, Denies nausea, Denies vomiting and Denies hematemesis Musculoskeletal: Musculoskeletal: Denies abnormal gait, Denies deformity, Denies joint swelling, Denies limited range of motion, Denies neck pain and Denies numbness Neurologic: Denies Abnormal speech present, Denies abnormal gait, Denies confusion, Denies dizziness, Denies headache(s), Denies focal weakness, Denies loss of vision, Denies numbness, Denies Other visual disturbances, Denies Sensory deficit (Neuro) and Denies weakness Psychiatric: Psychiatric: Denies confusion, Denies depression, Denies auditory hallucinations, Denies homicidal ideation and Denies suicidal ideation Endocrine: Endocrine: Denies cold intolerance, Denies excessive sweating, Denies fatigue, Denies heat intolerance and Denies palpitations Hematologic/Lymphatic: Hematologic/Lymphatic: Denies easy bleeding and Denies easy bruising Allergic/Immunologic: Allergic/Immunologic: Denies lip swelling, Denies throat swelli
[2021-04-05 20:20] LABS: Add Urine Microscopic? YES; Appearance Urine Clear (Clear); Bilirubin Urine Negative (Negative); Blood Urine Negative (Negative); Color Urine Yellow (Yellow); Glucose Urine UA Negative (Negative); Ketones Urine Negative (Negative); Leukocyte Esterase Ur Negative LEU/UL (Negative); Mucus Urine Rare /lpf; Nitrate Urine Negative (Negative); Protein Urine 1+ mg/dL (Negative); RBC Urine 0-2 /hpf (0-2); Specific Grav Ur 1.012 (1.001-1.035); Squamous Epithelial Cell Urine Moderate /hpf (Few); Urobilinogen Urine Negative mg/dL (<2.0)
[2021-04-05] MEDS: ONDANSETRON INJ 4 MG/2 ML VIAL IV PUSH (21:20)
[2021-04-05] MEDS: HYDROmorphone HCL INJ (*CRX) 1 MG/ML SYR 0.5 MG IV PUSH (21:23)
[2021-04-05 22:08] LABS: Magnesium 1.4 mg/dL (1.6-2.3)
[2021-04-05] MEDS: POTASSIUM CHLORIDE 20 MEQ PACKET (FOR LIQUID) 40 MEQ PO (22:38)
[2021-04-05] MEDS: LACTATED RINGERS 1,000 ML 999 ML IV CONT (22:38)
[2021-04-06] VITALS (14 sets, daily range): BP systolic 89–153; BP diastolic 50–95; PULSE 86–110; RESP 12–22; TEMP 35.9–37.2; O2SAT 92–97; BMI 26.2
--- NOTE | 2021-04-06 00:04 | ADMGEN ---
This patient, Rosa Veronica, was admitted to [facility] Surg Room 315-01. Patient/family oriented to hospital policies and general routines including ID bracelet, bed and alarms, visiting hours, pain management, procedures, bathroom and other care routines, personal items, smoking policy, room service/diet, and visiting hours. Information on how to activate the Rapid Response Team has been discussed. Patient/Family are encouraged to report perceived risks to care and to ask questions if they do not understand what they are told or what they should do.
[2021-04-06] MEDS: polyethylene glycoL 3350 238 GM BOTTLE PO (00:30)
[2021-04-06] MEDS: LACTATED RINGERS 1,000 ML 125 ML IV CONT ×2 (00:49→15:36)
[2021-04-06 01:26] LABS: Hematocrit 45.2 % (37.0-47.0); Hemoglobin 14.5 g/dL (12.0-15.0)
[2021-04-06] MEDS: BISACODYL 5 MG TABLET EC 20 MG PO (03:17)
--- NOTE | 2021-04-06 04:51 | PM.IMHP ---
H&P: HPI History of Present Illness Date/Time: 04/06/21 04:51 Chief Complaint: Blood in stool Narrative: 80-year-old female with past medical history of lung disease with chronic hypoxic respiratory failure, obstructive sleep apnea, and atrial fibrillation on chronic anticoagulation with Eliquis who presented to the ER from home due to bright red blood per rectum. She reports a somewhat chronic upper abdominal pain. She has been having several months of epigastric abdominal pain. The pain waxes and wanes in is aching in nature. He has noted associated nausea and the nausea has worsened over the last several weeks. She occasionally will have some retching with some clear fluid but most the time does has nausea. She had an EGD in May 2020 that demonstrated esophageal stricture and gastritis. She has been having what sounds like chronic intermittent diarrhea for the last 6 months or more. She has resorted to wearing depends. She is frequently incontinent of stool. She states that sometimes stools mixed with blood. Her actually brought her to the ER because she had a bloody stool that went all over her recliner. She is on chronic anticoagulation with Eliquis due to history of AFib. She denies any lower abdominal pain at the time of my evaluation. She reports that she has not had a colonoscopy in many years but she cannot addendum by when exactly that last was. She had stool mixed with blood at the beginning of her bowel prep. Since that time the patient has not passed any further blood. The patient is alert oriented x3 but seems to be mildly confused when describing time frames. She presented to the ER on the reporting abdominal pain and has CT that time that was unremarkable. However at that time as noted that her lower extremities were erythematous bilaterally. She was diagnosed with cellulitis of her lower extremities. However the patient states that her legs are always erythematous. Her legs are not more erythematous than usual but they have been hurting more than usual. She was prescribed a cephalosporin and was discharged home. The patient reported that after taking antibiotics she had some increased nausea. Review of Systems Review of Systems: 12 systems were reviewed with pertinent positives and negatives per HPI. Except as documented in the HPI, all other systems were reviewed and are negative. [facility] Past Medical History Medical History (Updated 04/06/21 @ 05:13 by Rina Taveras DO) Atrial fibrillation Chronic respiratory failure with hypoxia, on home O2 therapy COPD (chronic obstructive pulmonary disease) With CT demonstrating emphysema with mild bronchiectasis Essential (primary) hypertension uncontrolled on medications GERD without esophagitis H/O vaginal delivery History of blood clots History of cerebral hemorrhage History of skin cancer History of stroke History of urinary incontinence Hyperlipidemia Hypertension Hyperthyroidism Obstructive sleep apnea (~10/2020) Polysomnogram suggesting CPAP pressure of 13 with 3 L bleed in O2 Osteoporosis Pulmonary embolism Restrictive pattern present on pulmonary function testing Without evidence of interstitial lung disease on high-resolution CT June 2020 Rheumatoid arthritis Follows with Rheumatology Surgical History Surgical History (Updated 04/06/21 @ 05:13 by Rina Taveras DO) H/O abdominoplasty H/O angioplasty H/O brain surgery H/O shoulder surgery H/O Spinal surgery spinal tumor removed H/O: hysterectomy History of appendectomy History of esophagogastroduodenoscopy (EGD) (~05/2020) History of knee replacement History of umbilical hernia repair (10/2020) Family History Family History Father Family history of Alzheimer's disease Hypertension Hyperlipidemia Mother Hypertension Other Diabetes mellitus Nervous disorder Hypertension Heart disease Other Cer
[2021-04-06] MEDS: MAGNESIUM SULF 4 GM/WATER100ML 4 GM/100 ML BAG IVPB (06:09)
[2021-04-06 06:46] LABS: Basophils Absolute Auto 0.1 K/mm3 (0.0-0.1); Basophils Percent Auto 0.8 % (0.2-1.2); Eosinophils Absolute Auto 0.1 K/mm3 (0-0.3); Hematocrit 40.3 % (37.0-47.0); Hemoglobin 13.3 g/dL (12.0-15.0); Immature Granulocyte Absolute 0.01 K/mm3 (0.00-0.031); Immature Granulocyte Percent A 0.2 % (0-0.5); Lymphocytes Absolute Auto 1.73 K/mm3 (0.9-3.2); Lymphocytes Percent Auto 28.8 % (18.3-44.2); Mean Corpuscular Hemoglobin 30.2 pg (26-34); Mean Corpuscular Volume 91.4 fl (80-100); Mean Platelet Volume 9.6 fl (7.4-10.4); Monocytes Absolute Auto 0.6 K/mm3 (0.1-0.6); Monocytes Percent Auto 9.5 % (2.6-8.5); Neutrophils Absolute Auto 3.5 K/mm3 (1.3-6.7); Neutrophils Percent Auto 58.7 % (45.5-73.1); Platelet Count Result 132 k/mm3 (150-375); Red Blood Count 4.41 M/mm3 (4.2-5.4); Red Cell Distribution Width 16.4 % (11.5-14.5)
[2021-04-06 07:04] LABS: Anion Gap 8 mmol/L (8-16); Blood Urea Nitrogen 23 mg/dL (7-17); Calcium 7.8 mg/dL (8.4-10.2); Carbon Dioxide 23 mmol/L (22-30); Chloride 105 mmol/L (98-107); Estimated CRCL calculation 19 ml/min; Estimated Glomerular Filt Rate 29; Glucose 92 mg/dL (65-110); Potassium 2.9 mmol/L (3.4-5.0); Sodium 136 mmol/L (137-145)
[2021-04-06] MEDS: PANTOPRAZOLE SODIUM IV 40 MG VIAL IV PUSH (08:30)
[2021-04-06] MEDS: CHOLECALCIFEROL 1,000 UNITS TABLET 1000 UNITS PO (09:16)
[2021-04-06] MEDS: methylPREDNISolone 2 MG TABLET 6 MG PO (09:16)
[2021-04-06] MEDS: FERROUS SULFATE 324 MG TABLET PO (09:16)
[2021-04-06] MEDS: POTASSIUM CHLORIDE 10 MEQ TABLET.ER 20 MEQ PO (09:16)
[2021-04-06] MEDS: FOLIC ACID 0.4 MG TABLET PO (09:20)
[2021-04-06] MEDS: POTASSIUM CHLORIDE 20 MEQ TABLET PO (09:23)
[2021-04-06 10:25] LABS: Hematocrit 43.8 % (37.0-47.0); Hemoglobin 14.1 g/dL (12.0-15.0)
[2021-04-06] MEDS: LACTATED RINGERS 1,000 ML 150 ML IV CONT (12:17)
--- NOTE | 2021-04-06 12:23 | WPDANESEPPF ---
Anes - Initial Pre Proc Eval Procedure: Operation Date: 04/06/21 13:00 Proposed Procedures p Colonoscopy - Ray Madrid MD Date/Time: 04/06/21 12:23 Surgeon: Rina Taveras DO Pre Op Diagnosis: Acute GI Bleed, VIDHYA Patient Data Age: 80 Gender: F Height: 1.6 m Weight: 67 kg Last Vital Signs Temp 96.7 F L 04/06/21 12:15 Pulse 100 04/06/21 12:15 Resp 18 04/06/21 12:15 BP 153/95 H 04/06/21 12:15 Pulse Ox 93 04/06/21 12:15 Allergies Allergy/AdvReac Type Severity Reaction Status Date / Time No Known Allergies Allergy Verified 04/06/21 12:12 Home Medications Medication Instructions Recorded Confirmed Type ascorbic acid (vitamin C) 500 mg 500 mg PO DAILY 07/02/19 04/06/21 History capsule omeprazole 40 mg capsule,delayed 40 mg PO DAILY 07/02/19 04/06/21 History release atorvastatin 40 mg tablet 40 mg PO QPM 03/06/20 04/06/21 History potassium chloride 10 meq PO DAILY 05/24/20 04/06/21 History folic acid 400 mcg tablet 0.4 mg PO DAILY 05/25/20 04/06/21 History apixaban 5 mg tablet 2.5 mg PO BID tablet 09/21/20 04/06/21 History Orencia 125 mg SUBCUT WEEKLY 10/20/20 04/06/21 History abatacept [Orencia] 125 mg SUBCUT WEEKLY 04/06/21 04/06/21 History cholecalciferol (vitamin D3) 25 mcg PO DAILY 04/06/21 04/06/21 History [Vitamin D3] ferrous sulfate [Iron (ferrous 325 mg PO DAILY 04/06/21 04/06/21 History sulfate)] lisinopril 20 mg PO DAILY 04/06/21 04/06/21 History methylprednisolone 6 mg PO DAILY 04/06/21 04/06/21 History tramadol 50 mg PO Q6H PRN 04/06/21 04/06/21 History Laboratory Tests 04/05/21 04/05/21 04/05/21 17:49 17:49 17:49 WBC 6.1 K/mm3 K/mm3 (4.5-10.0) RBC 4.69 M/mm3 M/mm3 (4.2-5.4) Hgb 14.0 g/dL g/dL (12.0-15.0) Hct 43.1 % % (37.0-47.0) MCV 91.9 fl fl (80-100) MCH 29.9 pg pg (26-34) MCHC 32.5 g/dl g/dl (32-36) RDW 16.4 % H % (11.5-14.5) Plt Count 138 k/mm3 L k/mm3 (150-375) MPV 10.4 fl fl (7.4-10.4) Immature Gran % (Auto) 0.3 % % (0-0.5) Neut % (Auto) 56.8 % % (45.5-73.1) Lymph % (Auto) 32.2 % % (18.3-44.2) [place] % (Auto) 8.2 % % (2.6-8.5) Eos % (Auto) 1.8 % % (0-4.4) Baso % (Auto) 0.7 % % (0.2-1.2) Lymph # (Auto) 1.96 K/mm3 K/mm3 (0.9-3.2) [place] # (Auto) 0.5 K/mm3 K/mm3 (0.1-0.6) Eos # (Auto) 0.1 K/mm3 K/mm3 (0-0.3) Baso # (Auto) 0.0 K/mm3 K/mm3 (0.0-0.1) Abs Immat Gran (auto) 0.02 K/mm3 K/mm3 (0.00-0.031) Absolute Neuts (auto) 3.5 K/mm3 K/mm3 (1.3-6.7) Absolute Nucleated RBC 0.0 K/mm3 K/mm3 (0.0-0.012) Nucleated RBC % 0.0 % % (0.0-0.2) Sodium 139 mmol/L mmol/L (137-145) Potassium 2.8 mmol/L L* mmol/L (3.4-5.0) Chloride 106 mmol/L mmol/L (98-107) Carbon Dioxide 24 mmol/L mmol/L (22-30) Anion Gap 9 mmol/L mmol/L (8-16) BUN 29 mg/dL H D mg/dL (7-17) Creatinine 2.10 mg/dL H mg/dL (0.7-1.0) Estim Creat Clear Calc 16 ml/min ml/min Estimated GFR 23 L (59 - ) Glucose 128 mg/dL H mg/dL (65-110) Calcium 7.7 mg/dL L mg/dL (8.4-10.2) Magnesium 1.4 mg/dL L mg/dL (1.6-2.3) Total Bilirubin 0.5 mg/dL mg/dL (0.2-1.3) AST 39 U/L H U/L (14-36) ALT 15 U/L U/L (4-35) Alkaline Phosphatase 158 U/L H U/L (38-126) Total Protein 6.0 g/dL L g/dL (6.3-8.2) Albumin 3.2 g/dL L g/dL (3.5-5.1) Lipase 276 U/L U/L (23-300) Urine Color Urine Appearance Urine pH Ur Specific [place] Urine Protein Urine Glucose (UA) Urine Ketones Ur Blood (Man) Urine Nitrate Urine [place]
--- NOTE | 2021-04-06 12:24 | WPDGICN ---
Assessment and Plan Assessment and plan (1) Acute GI bleeding: Code(s): K92.2 - Gastrointestinal hemorrhage, unspecified Status: Acute Assessment and Plan: she already received bowel prep last night and will proceed with colonoscopy to assess source of bleeding eliquis is on hold now hb is normal, no more obvious signs of bleeding (2) COPD (chronic obstructive pulmonary disease): Qualifiers: COPD type: unspecified COPD Qualified Code(s): J44.9 - Chronic obstructive pulmonary disease, unspecified Code(s): J44.9 - Chronic obstructive pulmonary disease, unspecified Status: Acute Assessment and Plan: by primary (3) Acute kidney injury: Code(s): N17.9 - Acute kidney failure, unspecified Status: Acute Assessment and Plan: elevated creatinine, managed by primary team also had hypokalemia and treated (4) Hypokalemia: Code(s): E87.6 - Hypokalemia Status: Acute (5) Polymyalgia rheumatica: Code(s): M35.3 - Polymyalgia rheumatica Status: Acute Assessment and Plan: on immunosupression at home GI Consult Note Consult date/time: 04/06/21 12:24 Reason for consult: rectal bleeding HPI: Rosa Veronica is a 80 year old female with chronic hypoxic respiratory failure, obstructive sleep apnea, PMR on steroid and orencia and atrial fibrillation on chronic anticoagulation with Eliquis who came to ER from home due to bright red blood per rectum. She has been having intermittent blood with stools for few days but yesterday had large amount of bloody stool that went all over her recliner. She says that last colonoscopy over 5 years ago. Had EGD [address] Hunter, esophageal ring dilation up to 19 mm TTS balloon and mild gastritis. Recent visit to ER with leg cellulitis and given abx. She had another CT scan a/p that was reviewed, diverticulosis. Hb normal at 14. Review of Systems Constitutional: Constitutional: Denies headache(s) and Denies weakness Eyes: Eyes: Denies blurry vision ENT: Reports Normal hearing present, Denies headache(s) and Denies neck pain Cardiovascular: Cardiovascular: Denies chest pain and Denies dyspnea Respiratory: Respiratory: Denies cough Gastrointestinal: Gastrointestinal: Reports no additional gastrointestinal complaints Genitourinary: Genitourinary: Denies dysuria Musculoskeletal: Musculoskeletal: Denies neck pain Integumentary/Breasts: Skin/Breast: Denies dry skin Neurologic: Reports Normal hearing present, Denies headache(s) and Denies weakness Psychiatric: Psychiatric: Denies anxiety Endocrine: Endocrine: Denies change in body appearance Hematologic/Lymphatic: Hematologic/Lymphatic: Denies easy bleeding Allergic/Immunologic: Allergic/Immunologic: Denies urticaria PMFSH Past Medical History Medical History (Updated 04/06/21 @ 13:05 by Ray Madrid MD) Atrial fibrillation Chronic respiratory failure with hypoxia, on home O2 therapy COPD (chronic obstructive pulmonary disease) With CT demonstrating emphysema with mild bronchiectasis Essential (primary) hypertension uncontrolled on medications GERD without esophagitis H/O vaginal delivery History of blood clots History of cerebral hemorrhage History of skin cancer History of stroke History of urinary incontinence Hyperlipidemia Hypertension Hyperthyroidism Hypokalemia Obstructive sleep apnea (~10/2020) Polysomnogram suggesting CPAP pressure of 13 with 3 L bleed in O2 Osteoporosis Polymyalgia rheumatica Pulmonary embolism Restrictive pattern present on pulmonary function testing Without evidence of interstitial lung disease on high-resolution CT June 2020 Rheumatoid arthritis Follows with Rheumatology Surgical History Surgical History (Updated 04/06/21 @ 05:13 by Rina Taveras DO) H/O abdominoplasty H/O angioplasty H/O brain surgery H/O shoulder surgery H/O Spinal surgery spinal tumor removed
[2021-04-06] MEDS: POTASSIUM CHLORIDE 20 MEQ TABLET 40 MEQ PO (15:31)
[2021-04-06 16:50] LABS: Hematocrit 43.1 % (37.0-47.0); Hemoglobin 14.2 g/dL (12.0-15.0)
[2021-04-06 17:02] LABS: Anion Gap 7 mmol/L (8-16); Blood Urea Nitrogen 19 mg/dL (7-17); Carbon Dioxide 20 mmol/L (22-30); Chloride 108 mmol/L (98-107); Estimated CRCL calculation 22 ml/min; Estimated Glomerular Filt Rate 33; Glucose 138 mg/dL (65-110); Potassium 4.2 mmol/L (3.4-5.0); Sodium 135 mmol/L (137-145)
[2021-04-06] MEDS: ATORVASTATIN 40 MG TABLET PO (18:45)
[2021-04-06] MEDS: traMADol HCL (*CRX) 50 MG TABLET PO (19:42)
[2021-04-06] MEDS: HYDROCORTISONE ACETATE 25 MG SUPPOSITORY RECTAL (19:44)
--- NOTE | 2021-04-06 19:56 | PM.IMPN ---
Progress Note: A&P Assessment and Plan (1) Acute GI bleeding: Code(s): K92.2 - Gastrointestinal hemorrhage, unspecified Status: Acute Assessment and Plan: she received bowel prep last night and all morning today will proceed with colonoscopy this afternoon to assess source of bleeding eliquis is on hold now Hgb and Hct is normal, no more obvious signs of bleeding, hgb 13.3, hct 40.3 Colonoscopy report showed the bleeding was likely hemorrhoidal related She is to hold her Eliquis for 3 days Advise against constipation and she is to remain on anti constipation medications, including suppositories b.i.d. Increase her fiber diet (2) Acute kidney injury: Code(s): N17.9 - Acute kidney failure, unspecified Status: Acute Assessment and Plan: Acute kidney failure, unspecified Creatinine was 2.1 yesterday, improved to 1.5 today But her baseline creatinine was 0.6 in October of this year Urinalysis from yesterday was clear and urine culture from March 31 showed no growth Replenished her electrolytes Continue maintenance IV fluids overnight since the patient was undergoing bowel prep today and that may have further dehydrated her (remains tachy too), will repeat her labs in the morning to see how her kidneys tolerated today IVFs Labs in morning (3) Hypomagnesemia: Code(s): E83.42 - Hypomagnesemia Status: Acute Assessment and Plan: Magnesium was 1.4 this morning she received 4 g of IV Mag sulfate Repeating Mag level in the morning with morning labs (4) Obstructive sleep apnea: Onset Date: ~10/2020 Code(s): G47.33 - Obstructive sleep apnea (adult) (pediatric) Status: Acute Assessment and Plan: Chronic obstructive pulmonary disease, unspecified, history MALCOLM history (5) COPD (chronic obstructive pulmonary disease): Qualifiers: COPD type: unspecified COPD Qualified Code(s): J44.9 - Chronic obstructive pulmonary disease, unspecified Code(s): J44.9 - Chronic obstructive pulmonary disease, unspecified Status: Acute Assessment and Plan: Chronic obstructive pulmonary disease, unspecified Managed by primary care provider No concerns at this time no shortness of breath, no wheezing ,no cough (6) Hypokalemia: Code(s): E87.6 - Hypokalemia Status: Acute Assessment and Plan: Her potassium was 2.9 this morning, after being 2.8 yesterday Replenished with an additional 60 mEq of potassium Potassium levels 4.2 this afternoon Continue to monitor with morning labs as IV fluids continue for hydration since she is NPO status (7) Polymyalgia rheumatica: Code(s): M35.3 - Polymyalgia rheumatica Status: Acute Assessment and Plan: on immunosupression at home no complaints of pain at this time Additional Plan The patient has lower GI bleed. Gastroenterology has been consulted. Will monitor serial H&Hs. CT scan does not demonstrate any obvious reason/infectious process could be contributing to the patient's hematochezia. Hemoglobin has remained stable so far. She also has epigastric symptoms with history of gastritis. I do not think her current bleeding is due to an upper GI source. Will hold the patient's oral PPI in place on Protonix daily. Patient has evidence of acute kidney injury with creatinine up from her baseline of 0.6 in October of t0 2.1 currently. The patient has been initially a IV fluid hydration and repeat labs this morning demonstrates improvement. Acute kidney injury is likely due to hypovolemia in the setting of acute on chronic diarrhea. Will monitor eyes and nose closely and monitor electrolyte panel. Patient was hypokalemic and given 40 mEq potassium chloride in the ER. Will repeat BMP in a.m. and replace as needed. The patient also had hypo magnesemia. I did not see the magnesium result until is time for the patient's repeat labs. Subsequently a 4g magnesium sulfate rider was ordered t
[2021-04-06 23:17] LABS: Hematocrit 39.3 % (37.0-47.0); Hemoglobin 12.9 g/dL (12.0-15.0)
[2021-04-07] VITALS: PULSE 82
[2021-04-07 04:00] VITALS: PULSE 75
[2021-04-07 06:00] VITALS: BP 138/79; PULSE 76; RESP 16; TEMP 36.6; O2SAT 91
[2021-04-07 06:21] LABS: Basophils Percent Auto 0.4 % (0.2-1.2); Hematocrit 39.7 % (37.0-47.0); Hemoglobin 12.7 g/dL (12.0-15.0); Immature Granulocyte Absolute 0.03 K/mm3 (0.00-0.031); Immature Granulocyte Percent A 0.5 % (0-0.5); Lymphocytes Absolute Auto 1.06 K/mm3 (0.9-3.2); Lymphocytes Percent Auto 19.2 % (18.3-44.2); Mean Corpuscular Hemoglobin 29.3 pg (26-34); Mean Corpuscular Volume 91.7 fl (80-100); Mean Platelet Volume 9.3 fl (7.4-10.4); Monocytes Absolute Auto 0.3 K/mm3 (0.1-0.6); Monocytes Percent Auto 4.9 % (2.6-8.5); Neutrophils Absolute Auto 4.1 K/mm3 (1.3-6.7); Platelet Count Result 145 k/mm3 (150-375); Red Blood Count 4.33 M/mm3 (4.2-5.4); White Blood Count 5.5 K/mm3 (4.5-10.0)
[2021-04-07 06:32] LABS: Alanine Aminotransferase 12 U/L (4-35); Albumin Level 2.8 g/dL (3.5-5.1); Alkaline Phosphatase 132 U/L (38-126); Anion Gap 3 mmol/L (8-16); Aspartate Amino Transferase 29 U/L (14-36); Bilirubin,Total 0.5 mg/dL (0.2-1.3); Blood Urea Nitrogen 20 mg/dL (7-17); Calcium 7.8 mg/dL (8.4-10.2); Carbon Dioxide 25 mmol/L (22-30); Chloride 111 mmol/L (98-107); Estimated CRCL calculation 23 ml/min; Estimated Glomerular Filt Rate 36; Glucose 104 mg/dL (65-110); Potassium 4.3 mmol/L (3.4-5.0); Sodium 139 mmol/L (137-145)
[2021-04-07] MEDS: methylPREDNISolone 2 MG TABLET 6 MG PO (08:46)
[2021-04-07] MEDS: CHOLECALCIFEROL 1,000 UNITS TABLET 1000 UNITS PO (08:47)
[2021-04-07] MEDS: POTASSIUM CHLORIDE 10 MEQ TABLET.ER 20 MEQ PO (08:47)
[2021-04-07] MEDS: FOLIC ACID 0.4 MG TABLET PO (08:47)
[2021-04-07] MEDS: HYDROCORTISONE ACETATE 25 MG SUPPOSITORY RECTAL (08:47)
[2021-04-07] MEDS: FERROUS SULFATE 324 MG TABLET PO (12:27)
--- NOTE | 2021-04-07 13:57 | PM.IMPN ---
Progress Note: A&P Assessment and Plan (1) Acute GI bleeding: Code(s): K92.2 - Gastrointestinal hemorrhage, unspecified Status: Acute Assessment and Plan: she received bowel prep last night and all morning today will proceed with colonoscopy this afternoon to assess source of bleeding eliquis is on hold now Hgb and Hct is normal, no more obvious signs of bleeding, hgb 13.3, hct 40.3 Colonoscopy report showed the bleeding was likely hemorrhoidal related She is to hold her Eliquis for 3 days Advise against constipation and she is to remain on anti constipation medications, including suppositories b.i.d. Increase her fiber diet (2) Acute kidney injury: Code(s): N17.9 - Acute kidney failure, unspecified Status: Acute Assessment and Plan: Acute kidney failure, unspecified Creatinine was 2.1 yesterday, improved to 1.5, then to 1.4 today But her baseline creatinine was 0.6 in October of this year Urinalysis from was clear and urine culture from March 31 showed no growth Replenished electrolytes Continue maintenance IV fluids overnight due to persistent slightly low BPs and low PO intact and bowel prep yesterday. HR improving with low IVFs too from 90-100s to 80-90s today. IVFs D/C this evening Labs in morning (3) Hypomagnesemia: Code(s): E83.42 - Hypomagnesemia Status: Acute Assessment and Plan: Magnesium was 1.4 she received 4 g of IV Mag sulfate (4) Obstructive sleep apnea: Onset Date: ~10/2020 Code(s): G47.33 - Obstructive sleep apnea (adult) (pediatric) Status: Acute Assessment and Plan: Chronic obstructive pulmonary disease, unspecified, history [place] history A CPAP has been ordered the patient's home settings. Will continue patient's home O2. (5) COPD (chronic obstructive pulmonary disease): Qualifiers: COPD type: unspecified COPD Qualified Code(s): J44.9 - Chronic obstructive pulmonary disease, unspecified Code(s): J44.9 - Chronic obstructive pulmonary disease, unspecified Status: Acute Assessment and Plan: Chronic obstructive pulmonary disease, unspecified Managed by primary care provider No concerns at this time no shortness of breath, no wheezing ,no cough (6) Hypokalemia: Code(s): E87.6 - Hypokalemia Status: Acute Assessment and Plan: Her potassium was 2.9 yesterday morning, Replenished with an additional 60 mEq of potassium Potassium levels 4.2 yesterday afternoon potassium 4.3 today, check in the morning (7) Polymyalgia rheumatica: Code(s): M35.3 - Polymyalgia rheumatica Status: Acute Assessment and Plan: on immunosupression at home no complaints of pain at this time Additional Plan Patient has been changed to [place] patient status due to her complications. Subjective Date/time seen: 04/07/21 13:57 Interval history: Rosa was a very pleasant lady to converse with today. She was having difficulty today with stool incontinence, having bloody stools in her bed, as well as on the floor before she could make it to the bedside commode. She is also having system significant pain to the external and internal hemorrhoids. GI had ordered some hydrocortisone suppositories to bring her comfort as well as some external cream. Her hemoglobin and hematocrit have remained stable with a hemoglobin of 12.7 and hematocrit of 39.7. GI nursing staff spoke with GI and we will be keeping her overnight due to her continued output a bloody stool. Ordered antifungal cream and SCDs to be applied to her legs bilaterally. Review of Systems Review of Systems: All systems reviewed & are unremarkable except as noted in HPI and below Constitutional: Constitutional: Denies body ache(s), Denies chills, Denies excessive sweating, Denies fatigue, Denies fever(s), Denies headache(s), Denies increased appetite, Denies lethargy, Denies malaise, Denies snoring, Denies weakness, Denies weight
[2021-04-07] MEDS: LACTATED RINGERS 1,000 ML 100 ML IV CONT (15:02)
[2021-04-07 15:03] VITALS: BP 128/72; PULSE 75; RESP 14; TEMP 36.7; O2SAT 93
[2021-04-07] MEDS: ATORVASTATIN 40 MG TABLET PO (17:50)
[2021-04-07 19:40] VITALS: PULSE 80; RESP 18; O2SAT 93
[2021-04-07] MEDS: traMADol HCL (*CRX) 50 MG TABLET PO (19:45)
[2021-04-07 20:00] VITALS: BP 133/80; PULSE 80; RESP 18; TEMP 36.1; O2SAT 93
[2021-04-07] MEDS: HYDROCORTISONE/PRAMOXINE 2.5% 30 GM CREAM 1 APPLIC RECTAL (20:36)
[2021-04-08] VITALS: BP 138/79; PULSE 73; RESP 18; TEMP 36.1; O2SAT 90
[2021-04-08 04:00] VITALS: BP 145/86; PULSE 76; RESP 18; TEMP 36.4; O2SAT 91
[2021-04-08 06:59] LABS: Hematocrit 36.3 % (37.0-47.0); Hemoglobin 11.9 g/dL (12.0-15.0); Mean Corpuscular HGB Conc 32.8 g/dl (32-36); Mean Corpuscular Hemoglobin 29.8 pg (26-34); Mean Corpuscular Volume 90.8 fl (80-100); Mean Platelet Volume 9.5 fl (7.4-10.4); Platelet Count Result 136 k/mm3 (150-375); Red Cell Distribution Width 16.1 % (11.5-14.5); White Blood Count 5.5 K/mm3 (4.5-10.0)
--- NOTE | 2021-04-08 08:26 | PM.DS ---
DS: Admitting Diagnosis Admitting Diagnosis GI bleed DS: Discharge Diagnosis Discharge Diagnosis (1) Acute GI bleeding: Code(s): K92.2 - Gastrointestinal hemorrhage, unspecified Status: Acute Assessment and Plan: josias is on hold now - restart per GI instructions - on 2020 Hgb and Hct is normal, no more obvious signs of bleeding, hgb 11.9, hct 36.3 Colonoscopy report showed the bleeding was likely hemorrhoidal related Advise against constipation and she is to remain on anti constipation medications, including suppositories b.i.d. Increase her fiber diet continue daily iron supplements (2) Acute kidney injury: Code(s): N17.9 - Acute kidney failure, unspecified Status: Acute Assessment and Plan: Acute kidney failure, unspecified Creatinine was 2.1 yesterday, improved to 1.5, then to 1.4 , and now 1.1 today with 4.2 potassium. baseline creatinine was 0.6 in October of this year Urinalysis from was clear and urine culture from March 31 showed no growth Replenished electrolytes - stable now. Continue maintenance IV fluids overnight due to persistent slightly low BPs and low PO intact and bowel prep yesterday. HR improving with low IVFs IVFs D/C'd yesterday Labs in morning (3) Hypomagnesemia: Code(s): E83.42 - Hypomagnesemia Status: Acute Assessment and Plan: Magnesium was 1.4 she received 4 g of IV Mag sulfate (4) Obstructive sleep apnea: Onset Date: ~10/2020 Code(s): G47.33 - Obstructive sleep apnea (adult) (pediatric) Status: Acute Assessment and Plan: Chronic obstructive pulmonary disease, unspecified, history MALCOLM history A CPAP has been ordered the patient's home settings. Will continue patient's home O2. (5) COPD (chronic obstructive pulmonary disease): Qualifiers: COPD type: unspecified COPD Qualified Code(s): J44.9 - Chronic obstructive pulmonary disease, unspecified Code(s): J44.9 - Chronic obstructive pulmonary disease, unspecified Status: Acute Assessment and Plan: Chronic obstructive pulmonary disease, unspecified Managed by primary care provider No concerns at this time no shortness of breath, no wheezing ,no cough (6) Hypokalemia: Code(s): E87.6 - Hypokalemia Status: Acute Assessment and Plan: Her potassium was 2.9 Replenished with an additional 60 mEq of potassium Potassium levels 4.2 - 4.3 , stable. (7) Polymyalgia rheumatica: Code(s): M35.3 - Polymyalgia rheumatica Status: Acute Assessment and Plan: on immunosupression at home no complaints of pain at this time DS: Summary Hospital Course Hospital Course: Gastroenterology completed colonoscopy, internal /external hemorrhoids found and still bleeding, suppository and cream to stop them,less stool /liquid/diarrhea output, patient wants to go home. Creatinine and renal function improved with low level IVFs. Slightly wet this morning, checked CXR, given low dose lasix, potassium rechecked this afternoon and found stable, discharged back on previous home low dose potassium. She will follow up with GI and PCP. Time Spent with Patient Time attestation: Total time spent providing and/or coordinating discharge services:90 minutes Rosa was a very pleasant lady to converse with today. She was having difficulty today with stool incontinence, having bloody stools in her bed, as well as on the floor before she could make it to the bedside commode. She is also having system significant pain to the external and internal hemorrhoids. GI had ordered some hydrocortisone suppositories to bring her comfort as well as some external cream. Her hemoglobin and hematocrit have remained stable with a hemoglobin of 12.7 and hematocrit of 39.7. GI nursing staff spoke with GI and we will be keeping her overnight due to her continued output a bloody stool. Ordered antifungal cream and SCDs to be applied to her le
--- NOTE | 2021-04-08 08:27 | P.PNIM_ITS ---
Progress Note: A&P Assessment and Plan (1) Acute GI bleeding: Code(s): K92.2 - Gastrointestinal hemorrhage, unspecified Status: Acute Assessment and Plan: she received bowel prep last night and all morning today will proceed with colonoscopy this afternoon to assess source of bleeding eliquis is on hold now Hgb and Hct is normal, no more obvious signs of bleeding, hgb 13.3, hct 40.3 Colonoscopy report showed the bleeding was likely hemorrhoidal related She is to hold her Eliquis for 3 days Advise against constipation and she is to remain on anti constipation medications, including suppositories b.i.d. Increase her fiber diet (2) Acute kidney injury: Code(s): N17.9 - Acute kidney failure, unspecified Status: Acute Assessment and Plan: Acute kidney failure, unspecified Creatinine was 2.1 yesterday, improved to 1.5, then to 1.4 today But her baseline creatinine was 0.6 in October of this year Urinalysis from was clear and urine culture from March 31 showed no growth Replenished electrolytes Continue maintenance IV fluids overnight due to persistent slightly low BPs and low PO intact and bowel prep yesterday. HR improving with low IVFs too from 90-100s to 80-90s today. IVFs D/C this evening Labs in morning (3) Hypomagnesemia: Code(s): E83.42 - Hypomagnesemia Status: Acute Assessment and Plan: Magnesium was 1.4 she received 4 g of IV Mag sulfate (4) Obstructive sleep apnea: Onset Date: ~10/2020 Code(s): G47.33 - Obstructive sleep apnea (adult) (pediatric) Status: Acute Assessment and Plan: Chronic obstructive pulmonary disease, unspecified, history MALCOLM history A CPAP has been ordered the patient's home settings. Will continue patient's home O2. (5) COPD (chronic obstructive pulmonary disease): Qualifiers: COPD type: unspecified COPD Qualified Code(s): J44.9 - Chronic obstructive pulmonary disease, unspecified Code(s): J44.9 - Chronic obstructive pulmonary disease, unspecified Status: Acute Assessment and Plan: Chronic obstructive pulmonary disease, unspecified Managed by primary care provider No concerns at this time no shortness of breath, no wheezing ,no cough (6) Hypokalemia: Code(s): E87.6 - Hypokalemia Status: Acute Assessment and Plan: Her potassium was 2.9 yesterday morning, Replenished with an additional 60 mEq of potassium Potassium levels 4.2 yesterday afternoon potassium 4.3 today, check in the morning (7) Polymyalgia rheumatica: Code(s): M35.3 - Polymyalgia rheumatica Status: Acute Assessment and Plan: on immunosupression at home no complaints of pain at this time Additional Plan Patient has been changed to [place] patient status due to her complications. Subjective Date/time seen: 04/08/21 08:27 Interval history: Rosa was a very pleasant lady to converse with today. She was having difficulty today with stool incontinence, having bloody stools in her bed, as well as on the floor before she could make it to the bedside commode. She is also having system significant pain to the external and internal hem orrhoids. GI had ordered some hydrocortisone suppositories to bring her comfort as well as some external cream. Her hemoglobin and hematocrit have remained stable with a hemoglobin of 12.7 and hematocrit of 39.7. GI nursing staff spoke with GI and we will be keeping her overnight due to her continued output a bloody stool. Ordered antifungal cream and SCDs to be applied to her legs bilaterally.
[2021-04-08 08:33] LABS: NT Pro B Type Natriuretic Pept 4510 pg/mL (5-100)
[2021-04-08] MEDS: FOLIC ACID 0.4 MG TABLET PO (09:19)
[2021-04-08] MEDS: CHOLECALCIFEROL 1,000 UNITS TABLET 1000 UNITS PO (09:19)
[2021-04-08] MEDS: HYDROCORTISONE/PRAMOXINE 2.5% 30 GM CREAM 1 APPLIC RECTAL (09:19)
[2021-04-08] MEDS: methylPREDNISolone 2 MG TABLET 6 MG PO (09:20)
[2021-04-08] MEDS: POTASSIUM CHLORIDE 10 MEQ TABLET.ER 20 MEQ PO (09:20)
[2021-04-08] MEDS: FERROUS SULFATE 324 MG TABLET PO (09:20)
--- NOTE | 2021-04-08 09:55 | WPDGIPROGNO ---
Subjective Date/time seen: 04/08/21 09:55 This very pleasant lady has had no further bleeding. She has some mild discomfort in the rectum. No abdominal pain, nausea or vomiting. No significant change in review of systems from her baseline. General: very pleasant patient in no acute distress. HEENT: Head was normocephalic sclerae is clear mouth without masses neck was supple. Heart: Rate rhythm regular without S3 or S4. Lungs: Decreased breath sounds bilaterally. Abdomen: Soft with no guarding or rigidity. Bowel sounds were active. Neurologic: Cranial nerves 2 through 12 intact. No focal defects. No clonus. Musculoskeletal system: Revealed no joint tenderness or swelling no muscle atrophy. Extremities: Reveal no significant edema. Skin: Warm and dry with normal turgor. Mental status: intact. Patient is alert and oriented. Rectal bleeding most likely perianal in origin. Improved with hydrocortisone 2.5% cream b.i.d.. Colon polyps. Diverticulosis coli. Atrial fibrillation Vocal cord paralysis. Chronic respiratory failure with hypoxia, on home O2 therapy COPD (chronic obstructive pulmonary disease) Essential (primary) hypertension GERD without esophagitis History of cerebral hemorrhage skin cancer History of stroke Hyperlipidemia Hypertension Hyperthyroidism Obstructive sleep apnea Osteoporosis Polymyalgia rheumatica Pulmonary embolism Rheumatoid arthritis Recommendation: Continue Analpram 2.5% hydrocortisone cream b.i.d.. Would continue for 2 weeks. Fiber daily. MiraLax as needed for constipation. Follow-up with Dr. Ballard is an outpatient. Review of Systems Review of Systems: All systems reviewed & are unremarkable except as noted in HPI and below Objective Data Vital Signs Vital Signs: Vital Signs - 24 hr 04/07/21 15:03 04/07/21 19:40 04/07/21 20:00 Temperature 36.7 C 36.1 C L Pulse Rate 75 80 80 Respiratory Rate 14 18 18 Blood Pressure 128/72 133/80 Pulse Oximetry 93 93 93 04/08/21 00:00 04/08/21 04:00 Temperature 36.1 C L 36.4 C Pulse Rate 73 76 Respiratory Rate 18 18 Blood Pressure 138/79 145/86 H Pulse Oximetry 90 91 Intake/Output Intake/Output: Intake & Output 04/05/21 04/06/21 04/07/21 04/08/21 23:59 23:59 23:59 23:59 Intake Total 1000 1390 2060 750 Output Total 700 200 Balance 1000 1390 1360 550 Meds/Results Medications: Active Medications Generic Name Dose Route Start Last Admin Trade Name Freq PRN Reason Stop Dose Admin Atorvastatin Calcium 40 mg 04/06/21 18:00 04/07/21 17:50 Atorvastatin 40 Mg Tablet PO 40 mg QPM ILA Administration Ferrous Sulfate 324 mg 04/06/21 08:00 04/08/21 09:20 Ferrous Sulfate 324 Mg Tablet PO 324 mg DAILY@0800 ILA Administration Folic Acid 0.4 mg 04/06/21 09:00 04/08/21 09:19 Folic Acid 0.4 Mg Tablet PO 0.4 mg DAILY ILA Administration Hydrocortisone/Pramoxine 1 applic 04/07/21 21:00 04/08/21 09:19 Hydrocortisone/Pramoxine 2.5% 30 Gm Cream RECTAL 1 applic Q12HR ILA Administration Methylprednisolone 6 mg 04/06/21 08:00 04/08/21 09:20 Methylprednisolone 2 Mg Tablet PO 6 mg DAILY@0800 ILA Administration Miconazole Nitrate 1 applic 04/07/21 21:00 04/08/21 09:19 Miconazole 2% Antifungal Ointment 56 Gm TOPICAL 1 applic Q12HR ILA Administration Ondansetron HCl 4 mg 04/05/21 22:00 Ondansetron Inj 4 Mg/2 Ml Vial IV PUSH Q4H PRN Nausea Potassium Chloride 20 meq 04/06/21 08:00 04/08/21 09:20 Potassium Chloride 10 Meq Tablet.Er PO 20 meq DAILY@0800 ILA Administration Tramadol HCl 50 mg 04/06/21 05:03 04/07/21 19:45 Tramadol Hcl (*Crx) 50 Mg Tablet PO 50 mg Q6H PRN Administration Pain 7-10 Vitamin D 1,000 units 04/06/21 09:00 04/08/21 09:19 Cholecalciferol 1,000 Units Tablet PO 1,000 units DAILY ILA Administration Radiology Results: ITS Impressions Abdomen/Pelvis CT 04/05/21 22
--- NOTE | 2021-04-08 14:15 | PCPTNOTE ---
Declined therapy treatment this afternoon, stating that she was waiting for the doctor to come in so she could be discharged.
[2021-04-08 14:47] LABS: Anion Gap 3 mmol/L (8-16); Blood Urea Nitrogen 21 mg/dL (7-17); Calcium 7.6 mg/dL (8.4-10.2); Carbon Dioxide 23 mmol/L (22-30); Chloride 106 mmol/L (98-107); Estimated CRCL calculation 29 ml/min; Estimated Glomerular Filt Rate 48; Glucose 129 mg/dL (65-110); Potassium 4.2 mmol/L (3.4-5.0); Sodium 132 mmol/L (137-145)
[2021-04-08 14:51] VITALS: BP 138/81; PULSE 79; RESP 12; TEMP 36.6; O2SAT 95
== END 2021-04-08 16:05 | disposition home or self-care (01) | DRG 394 ==
LOC: ANHED 22:00 → ANH3MEDSUR 23:07
PROVIDERS: Internal Medicine Gastroenterology; Nurse Practitioner; Admitting Provider Internal Medicine; Emergency Provider Emergency Medicine; PCP Family Medicine; Visit Provider Hospitalist
PROC: 0DJD8ZZ Inspection of Lower Intestinal Tract, Via Natural or Artificial Opening Endoscopic (ICD-10-PCS; CPT 45378; principal; 2021-04-06 13:00)
DX: K64.2 Third degree hemorrhoids (principal); J96.11 Chronic respiratory failure with hypoxia; N17.9 Acute kidney failure, unspecified; Z99.81 Dependence on supplemental oxygen; K64.4 Residual hemorrhoidal skin tags; K57.30 Diverticulosis of large intestine without perforation or abscess without bleeding; K63.5 Polyp of colon; M35.3 Polymyalgia rheumatica; G47.33 Obstructive sleep apnea (adult) (pediatric); I48.91 Unspecified atrial fibrillation; E87.6 Hypokalemia; J44.9 Chronic obstructive pulmonary disease, unspecified; I10 Essential (primary) hypertension; K21.9 Gastro-esophageal reflux disease without esophagitis; E78.5 Hyperlipidemia, unspecified; M06.9 Rheumatoid arthritis, unspecified; Z79.01 Long term (current) use of anticoagulants; Z79.899 Other long term (current) drug therapy; Z86.711 Personal history of pulmonary embolism; Z86.73 Personal history of transient ischemic attack (TIA), and cerebral infarction without residual deficits
CPT/HCPCS: 36415; 71046; 74176; 80048; 80053; 81001; 83690; 83735; 83880; 85014; 85018; 85025; 85027; 88305; 96361; 96374; 96375; 97110; 97161; 97165; 99285; A9270; C9113; G0378; J1170; J2001; J2405; J2704; J3475; J7120

== ENCOUNTER 2021-04-13 10:10 | Emergency (ER) | payer MEDICARE, SELFPAY ==
--- NOTE | ~2021-04-13 | CT_ITS ---
EXAMINATION: CT abdomen pelvis w con EXAM DATE: 04/13/2021 11:10 INDICATION: Abdominal pain, nausea, leukocytosis. Right lower quadrant pain. TECHNIQUE: Spiral CT of the abdomen and pelvis was performed following intravenous injection of 100 m L Omnipaque 350. Axial, coronal and sagittal images of the abdomen and pelvis were reviewed. The do se-length product (DLP) for this examination was 453.05 mGy-cm. The exposure was tailored according to patient size (auto mA exposure control), and iterative reconstruction (ASIR) was used as additiona l dose reduction technique. Comparison is made to prior examination from 04/05/2021. FINDINGS: The liver, spleen, adrenal glands and pancreas are unremarkable. Small calcified cholelith iasis versus gallbladder debris. Unremarkable biliary system. Portal and splenic veins are patent. Kidneys enhance symmetrically. There is no hydronephrosis. Previously described small left nephrol ithiasis not well visualized on this postcontrast study. No ureteral stones. The uterus is not identi fied and has likely been surgically resected. The bladder is unremarkable. There is no retroperiton eal or pelvic lymphadenopathy. There is mild to moderate scattered arteriosclerotic disease. Small supraumbilical fat-containing hernia. Small to moderate right inguinal, small left inguinal hernias. A small portion of the cecal base extends into the right hernia. There are no findings to suggest appendicitis. The stomach and small bowel are unremarkable. There i s mild scattered colonic diverticulosis. There is no adjacent inflammatory change to suggest diverti culitis. There is expected amount of colonic stool. No free intraperitoneal gas. The heart is nor mal in size. There are no pericardial or pleural effusions. Basilar subsegmental atelectasis. Mild to moderate thoracolumbar scoliosis. There are no osteoblastic or osteolytic lesions identified. IMPRESSION: 1. No acute intra-abdominal findings. 2. Supraumbilical, inguinal hernias. 3. Scattered mild colonic diverticulosis. 4. Left nephrolithiasis. Reviewed, dictated and finalized at location B.
[2021-04-13 10:11] VITALS: BP 153/113; PULSE 115; RESP 20; TEMP 36.5
[2021-04-13 10:31] LABS: Basophils Absolute Auto 0.1 K/mm3 (0.0-0.1); Basophils Percent Auto 0.8 % (0.2-1.2); Eosinophils Absolute Auto 0.2 K/mm3 (0-0.3); Eosinophils Percent Auto 1.5 % (0-4.4); Hematocrit 47.2 % (37.0-47.0); Hemoglobin 15.1 g/dL (12.0-15.0); Immature Granulocyte Absolute 0.03 K/mm3 (0.00-0.031); Immature Granulocyte Percent A 0.3 % (0-0.5); Lymphocytes Absolute Auto 1.87 K/mm3 (0.9-3.2); Lymphocytes Percent Auto 16.6 % (18.3-44.2); Mean Corpuscular Hemoglobin 30.1 pg (26-34); Monocytes Absolute Auto 0.8 K/mm3 (0.1-0.6); Monocytes Percent Auto 6.7 % (2.6-8.5); Neutrophils Absolute Auto 8.3 K/mm3 (1.3-6.7); Neutrophils Percent Auto 74.1 % (45.5-73.1); Platelet Count Result 250 k/mm3 (150-375); Red Blood Count 5.02 M/mm3 (4.2-5.4); Red Cell Distribution Width 16.5 % (11.5-14.5); White Blood Count 11.3 K/mm3 (4.5-10.0)
[2021-04-13 10:40] LABS: Alanine Aminotransferase 13 U/L (4-35); Albumin Level 3.3 g/dL (3.5-5.1); Alkaline Phosphatase 152 U/L (38-126); Anion Gap 8 mmol/L (8-16); Aspartate Amino Transferase 41 U/L (14-36); Bilirubin,Total 0.8 mg/dL (0.2-1.3); Blood Urea Nitrogen 10 mg/dL (7-17); Calcium 8.1 mg/dL (8.4-10.2); Carbon Dioxide 21 mmol/L (22-30); Chloride 110 mmol/L (98-107); Estimated CRCL calculation 27 ml/min; Estimated Glomerular Filt Rate 43; Glucose 97 mg/dL (65-110); Lipase 127 U/L (23-300); Potassium 3.4 mmol/L (3.4-5.0); Sodium 139 mmol/L (137-145)
--- NOTE | 2021-04-13 10:48 | ECG_ITS ---
Measurements Intervals [place] Rate: 99 P: 42 CA: 168 QRS: -4 QRSD: 88 T: 262 QT: 357 QTc: 460 Interpretive Statements SINUS RHYTHM POSSIBLE LEFT ATRIAL ENLARGEMENT BORDERLINE ST-T WAVE ABNORMALITY- ANT/HIGH LAT LEADS BASELINE ARTIFACT- I, II, III, AVR, AVL, AVF, V1, V3-V6 BORDERLINE ECG Electronically Signed On 04-13-2021 13:34:17 CDT by Juan Antonio Tolbert D.O.
--- NOTE | 2021-04-13 10:49 | ED.ABDPAIN ---
HPI - Abdominal Pain General Chief Complaint: Abdominal Pain Stated Complaint: NAUSEA Time Seen by Provider: 04/13/21 10:25 Source: patient and family Mode of arrival: wheelchair Limitations: no limitations History of Present Illness HPI narrative: This is a 80 year old female that presents to the ER for abdominal pain worsening this morning. Reports she was recently admitted to the hospital for similar occurrence as well as blood in the stool. She had a colonoscopy which showed hemorrhoids and some polyps that were removed. Reports today she again started to have increased abdominal discomfort and nausea. Reports the pain is a constant dull ache. She took a tramadol this morning for pain. Does report she is still intermittently seeing blood on the tissue when she wipes. Denies fever, chest pain, shortness of breath, vomiting, diarrhea, or dysuria. Related Data Home Medications Medication Instructions Recorded Confirmed ascorbic acid (vitamin C) 500 mg 500 mg PO DAILY 07/02/19 04/06/21 capsule omeprazole 40 mg capsule,delayed 40 mg PO DAILY 07/02/19 04/06/21 release atorvastatin 40 mg tablet 40 mg PO QPM 03/06/20 04/06/21 potassium chloride 10 meq PO DAILY 05/24/20 04/06/21 folic acid 400 mcg tablet 0.4 mg PO DAILY 05/25/20 04/06/21 apixaban 5 mg tablet 2.5 mg PO BID tablet 09/21/20 04/06/21 Orencia 125 mg SUBCUT WEEKLY 10/20/20 04/06/21 Orencia 125 mg SUBCUT WEEKLY 04/06/21 04/06/21 cholecalciferol (vitamin D3) 25 mcg PO DAILY 04/06/21 04/06/21 [Vitamin D3] ferrous sulfate [Iron (ferrous 325 mg PO DAILY 04/06/21 04/06/21 sulfate)] lisinopril 20 mg PO DAILY 04/06/21 04/06/21 methylprednisolone 6 mg PO DAILY 04/06/21 04/06/21 tramadol 50 mg PO Q6H PRN 04/06/21 04/06/21 Allergies Allergy/AdvReac Type Severity Reaction Status Date / Time No Known Allergies Allergy Verified 04/13/21 10:21 Review of Systems Review of Systems: CONSTITUTIONAL: Denies fever CARDIOVASCULAR: Denies chest pain, or edema. RESPIRATORY: Denies dyspnea. GASTROINTESTINAL: Reports abdominal pain, nausea. Denies vomiting, or diarrhea. GENITOURINARY: Denies dysuria or hematuria. All systems reviewed & are unremarkable except as noted in HPI and below PMFSH Past Medical History Medical History (Updated 04/13/21 @ 14:22 by Yelitza Godinez PA-C) Atrial fibrillation Chronic respiratory failure with hypoxia, on home O2 therapy COPD (chronic obstructive pulmonary disease) With CT demonstrating emphysema with mild bronchiectasis Essential (primary) hypertension uncontrolled on medications GERD without esophagitis History of blood clots History of cerebral hemorrhage History of skin cancer History of stroke Hyperlipidemia Hypertension Hyperthyroidism Hypokalemia Obstructive sleep apnea (~10/2020) Polysomnogram suggesting CPAP pressure of 13 with 3 L bleed in O2 Osteoporosis Polymyalgia rheumatica Pulmonary embolism Rheumatoid arthritis Follows with Rheumatology Surgical History Surgical History (Updated 04/06/21 @ 05:13 by Rina Taveras DO) H/O abdominoplasty H/O angioplasty H/O brain surgery H/O shoulder surgery H/O Spinal surgery spinal tumor removed H/O: hysterectomy History of appendectomy History of esophagogastroduodenoscopy (EGD) (~05/2020) History of knee replacement History of umbilical hernia repair (10/2020) Family History Family History Father Family history of Alzheimer's disease Hypertension Hyperlipidemia Mother Hypertension Other Diabetes mellitus Nervous disorder Hypertension Heart disease Other Cerebrovascular accident Family history of arthritis Family history of thyroid disease Social History Social History (Updated 04/06/21 @ 08:26 by Rina Taveras DO) Social History: She has been 3 times. Her 1st after 40 years of marriage. Her 2nd after 5 years . She has been t
[2021-04-13] MEDS: ONDANSETRON INJ 4 MG/2 ML VIAL IV PUSH (11:11)
[2021-04-13] MEDS: SODIUM CHLORIDE 0.9% IV 1,000 ML 999 ML IV CONT (11:11)
[2021-04-13 11:19] LABS: INR 0.9; Prothrombin Time 12.4 Seconds (11.1-14.7)
[2021-04-13 11:20] LABS: Partial Thromboplastin Time 28.1 SECONDS (22.3-36.8)
[2021-04-13] MEDS: MORPHINE SULFATE (*CRX) 2 MG/ML INJ IV PUSH (11:52)
[2021-04-13 13:01] LABS: Add Urine Microscopic? YES; Appearance Urine Clear (Clear); Bilirubin Urine Negative (Negative); Blood Urine Negative (Negative); Color Urine Straw (Yellow); Glucose Urine UA Negative (Negative); Ketones Urine Negative (Negative); Leukocyte Esterase Ur Negative LEU/UL (Negative); Mucus Urine Rare /lpf; Nitrate Urine Negative (Negative); Protein Urine 1+ mg/dL (Negative); Specific Grav Ur 1.019 (1.001-1.035); Squamous Epithelial Cell Urine Rare /hpf (Few); Urobilinogen Urine Negative mg/dL (<2.0)
[2021-04-13 15:25] VITALS: BP 106/67; PULSE 101; RESP 22; O2SAT 93
== END 2021-04-13 15:30 | disposition home or self-care (01) ==
PROVIDERS: Physician Assistant; Emergency Provider Emergency Medicine; PCP Family Medicine
DX: R10.84 Generalized abdominal pain (principal); R11.0 Nausea; I48.91 Unspecified atrial fibrillation; J96.11 Chronic respiratory failure with hypoxia; Z99.81 Dependence on supplemental oxygen; I10 Essential (primary) hypertension; K21.9 Gastro-esophageal reflux disease without esophagitis; E05.90 Thyrotoxicosis, unspecified without thyrotoxic crisis or storm; G47.33 Obstructive sleep apnea (adult) (pediatric); M06.9 Rheumatoid arthritis, unspecified; M35.3 Polymyalgia rheumatica; M81.0 Age-related osteoporosis without current pathological fracture; Z86.73 Personal history of transient ischemic attack (TIA), and cerebral infarction without residual deficits; Z85.828 Personal history of other malignant neoplasm of skin; Z86.711 Personal history of pulmonary embolism; Z98.61 Coronary angioplasty status; Z96.659 Presence of unspecified artificial knee joint; Z79.01 Long term (current) use of anticoagulants; Z86.010 Personal history of colon polyps; N20.0 Calculus of kidney; K57.90 Diverticulosis of intestine, part unspecified, without perforation or abscess without bleeding; K40.90 Unilateral inguinal hernia, without obstruction or gangrene, not specified as recurrent; R94.31 Abnormal electrocardiogram [ECG] [EKG]
CPT/HCPCS: 36415; 51701; 74177; 80053; 81001; 83690; 85025; 85610; 85730; 93005; 96365; 96366; 96375; 99284; J0131; J2270; J2405; J7030; Q9967

== ENCOUNTER 2021-05-03 14:22 | Inpatient (IN) | payer MEDICARE, SELFPAY ==
[2021-05-03] VITALS (33 sets, daily range): BP systolic 92–126; BP diastolic 62–92; PULSE 98–106; RESP 14–25; TEMP 36.3–36.4; O2SAT 88–100; BMI 25.7; BMI 26.5
--- NOTE | ~2021-05-03 | XR_ITS ---
EXAMINATION: XR chest 1V portable DATE: 05/09/2021 00:40 INDICATION: Shortness of breath TECHNIQUE: frontal view of the chest was obtained. COMPARISON: Chest radiograph dated 04/08/2021 FINDINGS: Opacities in the bilateral mid and lower lung zones. Blunting at the bilateral costophrenic angles co nsistent with small bilateral pleural effusions. No pneumothorax. Cardiomegaly. Left pectoral implant able air sampling and monitoring. Thoracic dextroscoliosis with moderate spondylosis. IMPRESSION: 1. Small bilateral pleural effusions. 2. Opacities in the bilateral mid and lower lung zones which could represent associated atelectasis o r pneumonia. 3. Cardiomegaly. Reviewed, dictated and finalized at location A. IMPRESSION: 1. Small bilateral pleural effusions. 2. Opacities in the bilateral mid and lower lung zones which could represent as sociated atelectasis or pneumonia. 3. Cardiomegaly.
--- NOTE | ~2021-05-03 | XR_ITS ---
EXAMINATION: XR chest 1V portable DATE: 05/14/2021 09:52 INDICATION: Encephalopathy. TECHNIQUE: frontal view of the chest was obtained. COMPARISON: Chest radiograph date FINDINGS: Consolidation in the left lower lung zone and more streaky opacities in the bilateral mid and right l ower lung zones. No pneumothorax or right-sided pleural effusion. Cardiomegaly. Left pectoral implant able freight traffic consultant. Thoracolumbar dextroscoliosis with moderate spondylosis. IMPRESSION: 1. No significant change in opacities in bilateral mid and lower lung zones with the most dense conso lidation in the left lower lung zone which could represent pneumonia, atelectasis, small left pleural effusion or some combination thereof. 2. Cardiomegaly. Reviewed, dictated and finalized at location B. IMPRESSION: 1. No significant change in opacities in bilateral mid and lower lung zones wit h the most dense consolidation in the left lower lung zone which could represen t pneumonia, atelectasis, small left pleural effusion or some combination there of. 2. Cardiomegaly.
--- NOTE | ~2021-05-03 | XR_ITS ---
EXAMINATION: XR chest 1V portable DATE: 05/10/2021 08:51 INDICATION: Aspiration pneumonia TECHNIQUE: frontal view of the chest was obtained. COMPARISON: Chest radiograph dated 05/09/2021 FINDINGS: Opacities in the bilateral lower lung zones, left greater than right. Linear discoid atelectasis/scar ring in the bilateral mid lung zones. Blunting at the costophrenic angles consistent with small bilat eral pleural effusions, left greater than right. No ulnar edema or pneumothorax. Mild cardiomegaly. L eft pectoral implantable cardiac specialist. Bilateral breast implants. IMPRESSION: 1. Small bilateral pleural effusions. 2. Opacities in the bilateral lower lung zones which could represent atelectasis and/or pneumonia. 3. Cardiomegaly. Reviewed, dictated and finalized at location A. IMPRESSION: 1. Small bilateral pleural effusions. 2. Opacities in the bilateral lower lung zones which could represent atelectasi s and/or pneumonia. 3. Cardiomegaly.
--- NOTE | ~2021-05-03 | XR_ITS ---
EXAMINATION: XR abdomen/kub 1V DATE: 05/09/2021 03:39 INDICATION: Nausea and vomiting TECHNIQUE: A supine view of the abdomen on 2 radiographs was obtained. COMPARISON: CT dated 04/13/2021 FINDINGS: Relative paucity of bowel gas with small amounts in the stomach and distal colon. No dilated gas-fill ed bowel to suggest obstruction. Multiple calcifications in the pelvis which appear to represent a co mbination of phleboliths and atherosclerotic calcifications. Opacities at the bilateral lung bases wh ich could represent atelectasis and/or pneumonia. Heart size is normal. Bilateral breast implants. S- shaped thoracolumbar scoliosis with moderate spondylosis. IMPRESSION: 1. Paucity of bowel gas in a nonspecific, nonobstructive bowel gas pattern. 2. Bibasilar lung disease which could represent atelectasis and/or pneumonia. Reviewed, dictated and finalized at location A.
[2021-05-03] MEDS: SODIUM CHLORIDE 0.9% IV 1,000 ML 999 ML IV CONT (15:00)
[2021-05-03 15:25] LABS: Basophils Absolute Auto 0.1 K/mm3 (0.0-0.1); Basophils Percent Auto 0.7 % (0.2-1.2); Eosinophils Absolute Auto 0.2 K/mm3 (0-0.3); Eosinophils Percent Auto 2.5 % (0-4.4); Hemoglobin 12.8 g/dL (12.0-15.0); Immature Granulocyte Absolute 0.02 K/mm3 (0.00-0.031); Immature Granulocyte Percent A 0.2 % (0-0.5); Lymphocytes Absolute Auto 1.92 K/mm3 (0.9-3.2); Lymphocytes Percent Auto 21.9 % (18.3-44.2); Mean Corpuscular HGB Conc 36.6 g/dl (32-36); Mean Corpuscular Hemoglobin 35.5 pg (26-34); Mean Platelet Volume 10.7 fl (7.4-10.4); Monocytes Absolute Auto 0.8 K/mm3 (0.1-0.6); Monocytes Percent Auto 8.7 % (2.6-8.5); Neutrophils Absolute Auto 5.8 K/mm3 (1.3-6.7); Platelet Count Result 193 k/mm3 (150-375); Red Blood Count 3.61 M/mm3 (4.2-5.4); White Blood Count 8.8 K/mm3 (4.5-10.0)
[2021-05-03 15:37] LABS: Alanine Aminotransferase 10 U/L (4-35); Albumin Level 2.8 g/dL (3.5-5.1); Alkaline Phosphatase 205 U/L (38-126); Anion Gap 9 mmol/L (8-16); Aspartate Amino Transferase 38 U/L (14-36); Blood Urea Nitrogen 14 mg/dL (7-17); Calcium 8.3 mg/dL (8.4-10.2); Carbon Dioxide 26 mmol/L (22-30); Chloride 101 mmol/L (98-107); Estimated CRCL calculation 29 ml/min; Estimated Glomerular Filt Rate 48; Glucose 97 mg/dL (65-110); Potassium 2.9 mmol/L (3.4-5.0); Sodium 136 mmol/L (137-145)
--- NOTE | 2021-05-03 16:03 | ED.GIBLEED ---
HPI - GI Bleed General Chief complaint: GI Bleed Stated complaint: rectal bleeding Time Seen by Provider: 05/03/21 14:25 Source: patient and family Mode of arrival: wheelchair Limitations: no limitations History of Present Illness HPI Narrative: 80-year-old with a history of COPD atrial fibrillation on Eliquis and recurrent GI bleed here with complaints of not feeling well for 1 week started having rectal bleeding for last 3 days. Patient states that she had some bright red in color no clots at this time. She states that the bleeding per rectum happens randomly without any bowel movement. Denies any abdominal pain. No history of nausea or vomiting. She states that she feels weak. says this is her sixth visit to the ER for the same. MD complaint: gross hematochezia Onset (ago): day(s) (3) Exacerbating factors: none Context: history of GI bleed Associated symptoms: denies other symptoms Related Data Home Medications Medication Instructions Recorded Confirmed ascorbic acid (vitamin C) 500 mg 500 mg PO DAILY 07/02/19 05/01/21 capsule omeprazole 40 mg capsule,delayed 40 mg PO DAILY 07/02/19 05/01/21 release atorvastatin 40 mg tablet 40 mg PO QPM 03/06/20 05/01/21 potassium chloride 10 meq PO DAILY 05/24/20 05/01/21 folic acid 400 mcg tablet 0.4 mg PO DAILY 05/25/20 05/01/21 apixaban 5 mg tablet 2.5 mg PO DAILY tablet 09/21/20 05/01/21 Orencia 125 mg SUBCUT WEEKLY 04/06/21 05/01/21 cholecalciferol (vitamin D3) 10 mcg PO DAILY 04/06/21 05/01/21 [Vitamin D3] ferrous sulfate [Iron (ferrous 325 mg PO DAILY 04/06/21 05/01/21 sulfate)] lisinopril 20 mg PO DAILY 04/06/21 05/01/21 biotin 10,000 mcg PO DAILY 04/30/21 05/01/21 calcium carbonate 600 mg PO DAILY 04/30/21 05/01/21 hydrocodone-acetaminophen 1 tablet PO Q6H PRN 04/30/21 05/01/21 Allergies Allergy/AdvReac Type Severity Reaction Status Date / Time No Known Allergies Allergy Verified 05/03/21 14:42 Review of Systems Review of Systems: All systems reviewed & are unremarkable except as noted in HPI and below Constitutional: Constitutional: Reports no additional constitutional complaints Eyes: Eyes: Reports no additional eye complaints ENT: Reports system reviewed and no additional complaints, except as documented Respiratory: Respiratory: Reports no additional respiratory complaints Gastrointestinal: Gastrointestinal: Reports as per HPI Musculoskeletal: Musculoskeletal: Reports no additional musculoskeletal complaints Integumentary/Breasts: Skin/Breast: Reports system reviewed and no additional complaints, except as docu Neurologic: Reports system reviewed and no additional complaints, except as documented [facility] Past Medical History Medical History Atrial fibrillation Chronic respiratory failure with hypoxia, on home O2 therapy COPD (chronic obstructive pulmonary disease) With CT demonstrating emphysema with mild bronchiectasis Essential (primary) hypertension uncontrolled on medications GERD without esophagitis History of blood clots History of cerebral hemorrhage History of skin cancer History of stroke Hyperlipidemia Hypertension Hyperthyroidism Hypokalemia Obstructive sleep apnea (~10/2020) Polysomnogram suggesting CPAP pressure of 13 with 3 L bleed in O2 Osteoporosis Polymyalgia rheumatica Pulmonary embolism Rheumatoid arthritis Follows with Rheumatology Surgical History Surgical History H/O abdominoplasty H/O angioplasty H/O brain surgery H/O shoulder surgery H/O Spinal surgery spinal tumor removed H/O: hysterectomy History of appendectomy History of esophagogastroduodenoscopy (EGD) (~05/2020) History of knee replacement History of umbilical hernia repair (10/2020) Family History Family History Father Family history of Alzheimer's disease Hypertens
[2021-05-03 16:31] LABS: INR 1.3; Prothrombin Time 15.6 Seconds (11.1-14.7)
[2021-05-03] MEDS: MORPHINE SULFATE (*CRX) 4 MG/ML INJ IV PUSH (17:02)
[2021-05-03] MEDS: ONDANSETRON INJ 4 MG/2 ML VIAL IV PUSH (17:02)
--- NOTE | 2021-05-03 17:36 | PC.NURSE ---
Pt saturations 89% on room air. Placed on 2 liters NC. Denies SOB. Saturations recovered at 95% on 2 liters
--- NOTE | 2021-05-03 17:48 | PC.NURSE ---
Called patient's to report patient will be admitted to room 314 - 3rd Med Surg floor
--- NOTE | 2021-05-03 18:40 | PC.NURSE ---
Pt incontinent of stool and urine. Brief change and cleaned by RN prior to being sent to floor.
--- NOTE | 2021-05-03 20:30 | PM.IMHP ---
H&P: HPI History of Present Illness Date/Time: 05/03/21 20:30 Chief Complaint: gi bleed Narrative: 80-year-old with a history of COPD atrial fibrillation on Eliquis and recurrent GI bleed here with complaints of bleeding per rectum. She has been noticing is since past few days but has progressively gotten worse. She had multiple episodes of bright red blood per rectum without any clots. She denies any abdominal pain associated with bleeding. She had several previous episodes similar to this in the past. Recent colonoscopy was done for the same reason in March 2021 where she was found to have internal hemorrhoids/external hemorrhoids as well as polyp and polypectomy was done. She had recently seen her GI and been working up for her upper abdominal discomfort and is scheduled to get an EGD coming Friday. She has not had any bleeding per rectum since this morning today she denies being dizzy or lightheaded with this bleeding episodes.. Review of Systems Review of Systems: - CONSTITUTIONAL: Denies weight loss, fever and chills. - HEENT: Denies changes in vision and hearing - RESPIRATORY: Denies SOB and cough. - CV: Denies palpitations and CP. - GI: Denies abdominal pain, nausea, vomiting and diarrhea. - : Denies dysuria and urinary frequency. - MSK: Denies myalgia and joint pain. - SKIN: Denies rash and pruritus. - NEUROLOGICAL: Denies headache and syncope. - PSYCHIATRIC: Denies recent changes in mood. Denies anxiety and depression. All systems reviewed & are unremarkable except as noted in HPI and below Constitutional: Constitutional: Reports fatigue and Reports weakness Neurologic: Reports weakness Endocrine: Endocrine: Reports fatigue [facility] Past Medical History Medical History Atrial fibrillation Chronic respiratory failure with hypoxia, on home O2 therapy COPD (chronic obstructive pulmonary disease) With CT demonstrating emphysema with mild bronchiectasis Essential (primary) hypertension uncontrolled on medications GERD without esophagitis History of blood clots History of cerebral hemorrhage History of skin cancer History of stroke Hyperlipidemia Hypertension Hyperthyroidism Hypokalemia Obstructive sleep apnea (~10/2020) Polysomnogram suggesting CPAP pressure of 13 with 3 L bleed in O2 Osteoporosis Polymyalgia rheumatica Pulmonary embolism Rheumatoid arthritis Follows with Rheumatology Surgical History Surgical History H/O abdominoplasty H/O angioplasty H/O brain surgery H/O shoulder surgery H/O Spinal surgery spinal tumor removed H/O: hysterectomy History of appendectomy History of esophagogastroduodenoscopy (EGD) (~05/2020) History of knee replacement History of umbilical hernia repair (10/2020) Family History Family History (Reviewed 05/01/21 @ 13:52 by Faby Fernandez [facility]) Father Family history of Alzheimer's disease Hypertension Hyperlipidemia Mother Hypertension Other Diabetes mellitus Nervous disorder Hypertension Heart disease Other Cerebrovascular accident Family history of arthritis Family history of thyroid disease Social History Social History (Reviewed 05/01/21 @ 13:52 by Faby Fernandez [facility]) Social History: She has been 3 times. Her 1st after 40 years of marriage. Her 2nd after 5 years . She has been to her current has been for 12 years. She has 3 children who are healthy. She is a lifelong nonsmoker and does not drink alcohol. Smoking status: Never smoker Second hand tobacco smoke exposure: No Alcohol intake: never Substance use: never Substance use type: does not use Gender identity (if verbalized by the patient): Female Spiritual care concerns: No Meds Home Medications and Allergies Home Medications Medication Instructions Recorded Roman
[2021-05-03] MEDS: SODIUM CHLORIDE 0.9% IV 1,000 ML 125 ML IV CONT (20:40)
[2021-05-03 21:27] LABS: Magnesium 1.6 mg/dL (1.6-2.3)
--- NOTE | 2021-05-03 22:12 | PC.NURSE ---
This patient, Rosa Veronica, was admitted to 3 Med Surg Room 314-01 @1915. Patient/family oriented to hospital policies and general routines including ID bracelet, bed and alarms, visiting hours, pain management, procedures, bathroom and other care routines, personal items, smoking policy, room service/diet, and visiting hours. Information on how to activate the Rapid Response Team has been discussed. Patient/Family are encouraged to report perceived risks to care and to ask questions if they do not understand what they are told or what they should do.
[2021-05-04 04:15] VITALS: O2SAT 88
[2021-05-04 04:20] VITALS: O2SAT 95
[2021-05-04 05:37] VITALS: BP 125/73; PULSE 87; RESP 18; TEMP 36.5; O2SAT 97
[2021-05-04 06:14] LABS: Basophils Absolute Auto 0.1 K/mm3 (0.0-0.1); Basophils Percent Auto 1.3 % (0.2-1.2); Eosinophils Absolute Auto 0.3 K/mm3 (0-0.3); Eosinophils Percent Auto 5.8 % (0-4.4); Hematocrit 35.3 % (37.0-47.0); Immature Granulocyte Absolute 0.01 K/mm3 (0.00-0.031); Immature Granulocyte Percent A 0.2 % (0-0.5); Lymphocytes Absolute Auto 1.82 K/mm3 (0.9-3.2); Lymphocytes Percent Auto 32.9 % (18.3-44.2); Mean Corpuscular HGB Conc 31.2 g/dl (32-36); Mean Corpuscular Hemoglobin 29.8 pg (26-34); Mean Corpuscular Volume 95.7 fl (80-100); Mean Platelet Volume 9.5 fl (7.4-10.4); Monocytes Absolute Auto 0.5 K/mm3 (0.1-0.6); Monocytes Percent Auto 9.2 % (2.6-8.5); Neutrophils Absolute Auto 2.8 K/mm3 (1.3-6.7); Neutrophils Percent Auto 50.6 % (45.5-73.1); Platelet Count Result 197 k/mm3 (150-375); Red Blood Count 3.69 M/mm3 (4.2-5.4); Red Cell Distribution Width 15.9 % (11.5-14.5); White Blood Count 5.5 K/mm3 (4.5-10.0)
[2021-05-04 06:32] LABS: Anion Gap 6 mmol/L (8-16); Blood Urea Nitrogen 11 mg/dL (7-17); Calcium 7.5 mg/dL (8.4-10.2); Carbon Dioxide 24 mmol/L (22-30); Chloride 106 mmol/L (98-107); Estimated CRCL calculation 40 ml/min; Estimated Glomerular Filt Rate > 60; Glucose 81 mg/dL (65-110); Potassium 3.1 mmol/L (3.4-5.0); Sodium 136 mmol/L (137-145)
--- NOTE | 2021-05-04 08:42 | PM.IMPN ---
Progress Note: A&P Assessment and Plan (1) Acute GI bleeding: Code(s): K92.2 - Gastrointestinal hemorrhage, unspecified Status: Acute (2) Hypokalemia: Code(s): E87.6 - Hypokalemia Status: Acute (3) Polymyalgia rheumatica: Code(s): M35.3 - Polymyalgia rheumatica Status: Acute (4) Hypomagnesemia: Code(s): E83.42 - Hypomagnesemia Status: Acute (5) Hyperthyroidism: Code(s): E05.90 - Thyrotoxicosis, unspecified without thyrotoxic crisis or storm Status: Chronic (6) GERD without esophagitis: Code(s): K21.9 - Gastro-esophageal reflux disease without esophagitis Status: Chronic (7) Essential (primary) hypertension: Code(s): I10 - Essential (primary) hypertension Status: Chronic (8) Rheumatoid arthritis: Code(s): M06.9 - Rheumatoid arthritis, unspecified Status: Chronic (9) Dysphagia: Code(s): R13.10 - Dysphagia, unspecified Status: Acute (10) COPD (chronic obstructive pulmonary disease): Qualifiers: COPD type: unspecified COPD Qualified Code(s): J44.9 - Chronic obstructive pulmonary disease, unspecified Code(s): J44.9 - Chronic obstructive pulmonary disease, unspecified Status: Acute Additional Plan 3 days hematochezia per pt. On eliquis at home for AFib and prior DVT/PE. Recent admission about a week ago for similar complaints. 04/06 colonoscopy showing colon polyp and diverticulosis and 3rd degree hemorrhoids, which was presumed to be source of bleeding, and given BID steroid cream. GI has been requested from ER to see patient again. For now, will trend hgb in am, hold Eliquis. Bowel rest & IV fluids. Will hold off on IV protonix for the moment as expect symptoms related to hemorrhoidal bleed. Starting Anusol suppositories per GI. Continue morphine & tylenol prn for pain. Predict discharge early tomorrow if hgb stable and no rebleeds. Of note, pt has chronic respiratory failure on 1-2L nc related to COPD & MALCOLM, which is currently at symptomatic baseline. Continue NC and CPAP at night. Will discuss AC options as she has multiple indications to be on this, however repeatedly having lower GI bleed, and is already on one of the better DOACs for GI bleeding. For now, on SCD for DVT prophylaxis. Time Spent With Patient Time with patient: less than 15 minutes Subjective Date/time seen: 05/04/21 08:42 no acute complaints resting comfortably Review of Systems Review of Systems: All systems reviewed & are unremarkable except as noted in HPI and below Exam Const: General: no acute distress Neck: Neck: no JVD Resp: Effort & Inspection: normal respiratory effort Auscultation: clear to auscultation bilaterally Cardio: Rate: regular rate Rhythm: regular rhythm GI: GI Palp: Yes Soft to palpation and No Tenderness to palpation present (GI) Objective Data Vital Signs Vital Signs: Vital Signs - 24 hr 05/03/21 14:28 05/03/21 14:39 05/03/21 14:40 Temperature 97.3 F L Pulse Rate 100 105 H 104 H Respiratory Rate 14 16 14 Blood Pressure 94/69 L 94/69 L Pulse Oximetry 96 99 96 05/03/21 14:45 05/03/21 14:46 05/03/21 15:00 Temperature Pulse Rate 103 H 106 H 105 H Respiratory Rate 17 20 16 Blood Pressure 107/82 Pulse Oximetry 97 94 94 05/03/21 15:05 05/03/21 15:15 05/03/21 15:16 Temperature Pulse Rate 101 H 99 99 Respiratory Rate 19 16 17 Blood Pressure 105/71 126/71 Pulse Oximetry 99 95 100 05/03/21 15:30 05/03/21 15:31 05/03/21 15:47 Temperature Pulse Rate 98 98 98 Respiratory Rate 22 H Blood Pressure 120/74 Pulse Oximetry 97 96 92 05/03/21 16:03 05/03/21 16:15 05/03/21 16:16 Temperature Pulse Rate 98 98 99 Respiratory Rate 18 20 20 Blood Pressure 108/72 Pulse Oximetry 93 94 97 05/03/21 16:30 05/03/21 16:31 05/03/21 16:46 Temperature Pulse Rate 99 100 98 Respiratory Rate 20 20 21 H Blood Pressure 108/92 H 92/62 L Pulse Ox
[2021-05-04] MEDS: POTASSIUM CHLORIDE 20 MEQ TABLET 40 MEQ PO (08:54)
[2021-05-04] MEDS: MORPHINE SULFATE (*CRX) 4 MG/ML INJ IV PUSH (10:06)
[2021-05-04] MEDS: SODIUM CHLORIDE 0.9% IV 1,000 ML 125 ML IV CONT ×2 (10:07→19:00)
[2021-05-04 14:00] VITALS: BP 118/80; PULSE 98; RESP 18; TEMP 37.5; O2SAT 95
[2021-05-04 14:04] VITALS: TEMP 36.7
[2021-05-04] MEDS: ACETAMINOPHEN 325 MG TABLET 650 MG PO (14:04)
--- NOTE | 2021-05-04 15:47 | WPDGICN ---
Assessment and Plan Assessment and plan (1) Rectal bleeding: Code(s): K62.5 - Hemorrhage of anus and rectum Status: Acute Assessment and Plan: colonoscopy last month most likely source perianal (had large hemorrhoids), exam today revealed again hemorrhoids but no trace of blood. no plan to repeat more endoscopies will start anusol suppository and hold eliquis patient is willing to have surgical evaluation because ongoing problem she is hemodynamically stable (2) Acute GI bleeding: Code(s): K92.2 - Gastrointestinal hemorrhage, unspecified Status: Acute (3) Hemorrhoid: Code(s): K64.9 - Unspecified hemorrhoids Status: Acute Assessment and Plan: probably cause of bleeding again (4) Dysphagia: Code(s): R13.10 - Dysphagia, unspecified Status: Acute Assessment and Plan: she is already scheduled to have EGD this coming Friday (if she stays we can do it but no objections to discharge and then she can come back Friday) (5) Polymyalgia rheumatica: Code(s): M35.3 - Polymyalgia rheumatica Status: Acute (6) Hypokalemia: Code(s): E87.6 - Hypokalemia Status: Acute Assessment and Plan: repleting (7) Anticoagulant long-term use: Code(s): Z79.01 - intermediate (current) use of anticoagulants Status: Acute Assessment and Plan: on hold for now GI Consult Note Consult date/time: 05/04/21 15:47 Reason for consult: rectal bleeding, large hemorrhoids, dysphagia HPI: Rosa Veronica is a 80 year old female know to me from recent hospitalization after she came with rectal bleeding a month ago, colonoscopy revealed mild diverticulosis without bleeding and large grade III hemorrhoids thought to be cause of bleeding (treated with hydrocortisone cream). She also has chronic hypoxic respiratory failure, obstructive sleep apnea, PMR on steroid and orencia and atrial fibrillation on chronic anticoagulation with Eliquis. She actually came to our office to see our nurse practitioner earlier this week complaining of intermittent nausea and also sometimes difficulty after swallowing solids, she had EGD [address] Hunter, esophageal ring dilation up to 19 mm TTS balloon and mild gastritis, in fact she already has appointment this coming Friday to have EGD with me as outpatient. She came to ER this time with more episodes of bright red blood in rectum with clots for last couple of days, no abdominal pain, hb 12.8 (relatively stable). She is comfortable now. Review of Systems Constitutional: Constitutional: Denies weakness Eyes: Eyes: Denies blurry vision ENT: Reports Normal hearing present Cardiovascular: Cardiovascular: Denies chest pain Respiratory: Respiratory: Denies dyspnea Gastrointestinal: Gastrointestinal: Denies abdominal pain and Reports hematochezia Genitourinary: Genitourinary: Denies hematuria Musculoskeletal: Musculoskeletal: Reports arthralgias Integumentary/Breasts: Skin/Breast: Denies dry skin Neurologic: Denies headache(s) Psychiatric: Psychiatric: Reports no additional psychiatric complaints [facility] Medical History Medical History (Updated 05/04/21 @ 15:59 by Ray Madrid MD) Anticoagulant long-term use Atrial fibrillation Chronic respiratory failure with hypoxia, on home O2 therapy COPD (chronic obstructive pulmonary disease) With CT demonstrating emphysema with mild bronchiectasis Essential (primary) hypertension uncontrolled on medications GERD without esophagitis Hemorrhoid History of blood clots History of cerebral hemorrhage History of skin cancer History of stroke Hyperlipidemia Hypertension Hyperthyroidism Hypokalemia Obstructive sleep apnea (~10/2020) Polysomnogram suggesting CPAP pressure of 13 with 3 L bleed in O2 Osteoporosis Polymyalgia rheumatica Pulmonary embolism Rectal bleeding Rheumatoid arthritis Follows w
[2021-05-04 22:00] VITALS: BP 104/51; PULSE 85; RESP 18; TEMP 36.8; O2SAT 97
[2021-05-04] MEDS: HYDROCORTISONE ACETATE 25 MG SUPPOSITORY RECTAL (22:29)
[2021-05-05] MEDS: MORPHINE SULFATE (*CRX) 4 MG/ML INJ IV PUSH (02:32)
[2021-05-05] MEDS: SODIUM CHLORIDE 0.9% IV 1,000 ML 125 ML IV CONT (04:11)
[2021-05-05 05:53] VITALS: BP 117/67; PULSE 93; RESP 18; TEMP 36.8; O2SAT 99
[2021-05-05 07:08] LABS: Basophils Absolute Auto 0.1 K/mm3 (0.0-0.1); Basophils Percent Auto 0.9 % (0.2-1.2); Eosinophils Absolute Auto 0.3 K/mm3 (0-0.3); Eosinophils Percent Auto 5.9 % (0-4.4); Hematocrit 33.3 % (37.0-47.0); Hemoglobin 11.1 g/dL (12.0-15.0); Immature Granulocyte Absolute 0.01 K/mm3 (0.00-0.031); Immature Granulocyte Percent A 0.2 % (0-0.5); Lymphocytes Absolute Auto 1.15 K/mm3 (0.9-3.2); Lymphocytes Percent Auto 21.2 % (18.3-44.2); Mean Corpuscular HGB Conc 33.3 g/dl (32-36); Mean Corpuscular Hemoglobin 32.7 pg (26-34); Mean Corpuscular Volume 98.2 fl (80-100); Mean Platelet Volume 10.9 fl (7.4-10.4); Monocytes Absolute Auto 0.5 K/mm3 (0.1-0.6); Monocytes Percent Auto 9.6 % (2.6-8.5); Neutrophils Absolute Auto 3.4 K/mm3 (1.3-6.7); Neutrophils Percent Auto 62.2 % (45.5-73.1); Platelet Count Result 134 k/mm3 (150-375); Red Blood Count 3.39 M/mm3 (4.2-5.4); Red Cell Distribution Width 17.4 % (11.5-14.5); White Blood Count 5.4 K/mm3 (4.5-10.0)
[2021-05-05 08:42] LABS: Alanine Aminotransferase 7 U/L (4-35); Albumin Level 2.1 g/dL (3.5-5.1); Alkaline Phosphatase 170 U/L (38-126); Anion Gap 4 mmol/L (8-16); Aspartate Amino Transferase 32 U/L (14-36); Bilirubin,Total 0.8 mg/dL (0.2-1.3); Blood Urea Nitrogen 6 mg/dL (7-17); Calcium 7.1 mg/dL (8.4-10.2); Carbon Dioxide 24 mmol/L (22-30); Chloride 109 mmol/L (98-107); Estimated CRCL calculation 45 ml/min; Estimated Glomerular Filt Rate > 60; Glucose 92 mg/dL (65-110); Magnesium 1.4 mg/dL (1.6-2.3); Phosphorus 2.6 mg/dL (2.5-4.5); Potassium 3.2 mmol/L (3.4-5.0); Sodium 137 mmol/L (137-145)
--- NOTE | 2021-05-05 08:44 | PM.IMPN ---
Progress Note: A&P Assessment and Plan (1) Acute GI bleeding: Code(s): K92.2 - Gastrointestinal hemorrhage, unspecified Status: Acute (2) Hypokalemia: Code(s): E87.6 - Hypokalemia Status: Acute (3) Polymyalgia rheumatica: Code(s): M35.3 - Polymyalgia rheumatica Status: Acute (4) Hypomagnesemia: Code(s): E83.42 - Hypomagnesemia Status: Acute (5) Hyperthyroidism: Code(s): E05.90 - Thyrotoxicosis, unspecified without thyrotoxic crisis or storm Status: Chronic (6) GERD without esophagitis: Code(s): K21.9 - Gastro-esophageal reflux disease without esophagitis Status: Chronic (7) Essential (primary) hypertension: Code(s): I10 - Essential (primary) hypertension Status: Chronic (8) Rheumatoid arthritis: Code(s): M06.9 - Rheumatoid arthritis, unspecified Status: Chronic (9) Dysphagia: Code(s): R13.10 - Dysphagia, unspecified Status: Acute (10) COPD (chronic obstructive pulmonary disease): Qualifiers: COPD type: unspecified COPD Qualified Code(s): J44.9 - Chronic obstructive pulmonary disease, unspecified Code(s): J44.9 - Chronic obstructive pulmonary disease, unspecified Status: Acute Additional Plan 3 days hematochezia per pt. On eliquis at home for AFib and prior DVT/PE. Recent admission about a week ago for similar complaints. 04/06 colonoscopy showing colon polyp and diverticulosis and 3rd degree hemorrhoids, which was presumed to be source of bleeding, and given BID steroid cream. GI has been requested from ER to see patient again. For now, will trend hgb in am, hold Eliquis. Bowel rest & IV fluids. Will hold off on IV protonix for the moment as expect symptoms related to hemorrhoidal bleed. Starting Anusol suppositories per GI. Continue morphine & tylenol prn for pain. Of note, pt has chronic respiratory failure on 1-2L nc related to COPD & MALCOLM, which is currently at symptomatic baseline. Continue NC and CPAP at night. Will discuss AC options as she has multiple indications to be on this, however repeatedly having lower GI bleed, and is already on one of the better DOACs for GI bleeding. For now, on SCD for DVT prophylaxis. Have been in contact with patient's bridge manager Dr Mulligan who would like patient to be on AC upon discharge. As such, will probably have to ensure hemorrhoidal bleeding stopped and hgb stable prior to discharge. Try to resume Eliquis as allowed by these parameters. Time Spent With Patient Time with patient: less than 15 minutes Subjective Date/time seen: 05/05/21 08:44 no acute complaints resting comfortably Review of Systems Review of Systems: All systems reviewed & are unremarkable except as noted in HPI and below Exam Const: General: no acute distress Neck: Neck: no JVD Resp: Effort & Inspection: normal respiratory effort Auscultation: clear to auscultation bilaterally Cardio: Rate: regular rate Rhythm: regular rhythm GI: GI Palp: Yes Soft to palpation and No Tenderness to palpation present (GI) Objective Data Vital Signs Vital Signs: Vital Signs - 24 hr 05/04/21 14:00 05/04/21 14:04 05/04/21 22:00 Temperature 99.5 F 98.1 F 98.2 F Pulse Rate 98 85 Respiratory Rate 18 18 Blood Pressure 118/80 104/51 L Pulse Oximetry 95 97 05/05/21 05:53 Temperature 98.3 F Pulse Rate 93 Respiratory Rate 18 Blood Pressure 117/67 Pulse Oximetry 99 Intake/Output Intake/Output: Intake & Output 05/02/21 05/03/21 05/04/21 05/05/21 23:59 23:59 23:59 23:59 Intake Total 1000 3245 1400 Balance 1000 3245 1400 Meds/Results Medications: Active Medications Generic Name Dose Route Start Last Admin Trade Name Freq PRN Reason Stop Dose Admin Acetaminophen 650 mg 05/03/21 16:15 05/04/21 14:04 Acetaminophen 325 Mg Tablet PO 650 mg Q4H PRN Administration Mild Pain (1-3) or Fever Hydrocortisone Acetate 25 mg 05/04/21 21
[2021-05-05] MEDS: HYDROCORTISONE ACETATE 25 MG SUPPOSITORY RECTAL ×2 (09:44→22:00)
--- NOTE | 2021-05-05 13:13 | PM.CNGS ---
Assessment and Plan Assessment and plan (1) Internal hemorrhoids with complication: Code(s): K64.8 - Other hemorrhoids Status: Chronic Assessment and Plan: would probably be best to remove the hemorrhoids on this admission. This could be done on Friday or Friday this week. Patient has had her Eliquis held already. Following surgery it could be resumed in just a couple of days. She is to have an EGD on Friday. I would recommend going ahead with that as well. We will plan to proceed this week with hemorrhoidectomy for persistent rectal bleeding. (2) External hemorrhoids with complication: Code(s): K64.4 - Residual hemorrhoidal skin tags Status: Chronic Assessment and Plan: Please see above. External hemorrhoids are not the source of bleeding but are associated with the prolapse stage IV bleeding internal hemorrhoid at the left lateral position. She may have other internal hemorrhoids which could probably be treated with rubber-band ligation. (3) Rectal bleeding: Code(s): K62.5 - Hemorrhage of anus and rectum Status: Chronic Assessment and Plan: Most likely due to hemorrhoids. Please see above. Has not been significant enough to require transfusion. (4) COPD (chronic obstructive pulmonary disease): Qualifiers: COPD type: unspecified COPD Qualified Code(s): J44.9 - Chronic obstructive pulmonary disease, unspecified Code(s): J44.9 - Chronic obstructive pulmonary disease, unspecified Status: Chronic (5) Rheumatoid arthritis: Code(s): M06.9 - Rheumatoid arthritis, unspecified Status: Chronic Assessment and Plan: Takes Orencia. We can proceed with hemorrhoidectomy without stopping Orencia as this is a fairly minor surgery. It could cause delayed or and prolonged healing from the hemorrhoidectomy but is generally safe. (6) Dysphagia: Code(s): R13.10 - Dysphagia, unspecified Status: Chronic Assessment and Plan: Plan is to have EGD by Dr. Ballard on Friday (7) Anticoagulant long-term use: Code(s): Z79.01 - detention (current) use of anticoagulants Status: Chronic Assessment and Plan: continue to hold apixaban. History of Present Illness Consult details Consult date: 05/05/21 Reason for consult: other ( Persistent rectal bleeding) Requesting physician: Ray Madrid MD Narrative: the patient is an 80-year-old woman who has had several bouts of rectal bleeding resulting in emergency room visits in March and April. She had a colonoscopy by Dr. Ballard less than a month ago, 04/06/21. This showed no sign of diverticular bleed or AVM. There were a couple of small polyps in the ascending colon but the most significant finding was internal and external hemorrhoids. The patient is on Eliquis for paroxysmal atrial fibrillation as well as a history of DVT. Apparently her bumper machine operator, who is not on staff, would like her continued on this medication watermaster. Her blood thinner has been stopped during this admission. I was asked to see the patient regarding her hemorrhoids and the likelihood that this is the source of her persistent rectal bleeding. She also has a history of significant rheumatoid arthritis and is taking the biologic agent Orencia for this. She also has osteoporosis presumably from long-term steroid treatment and takes Reclast infusions for this. She is currently receiving steroid suppositories for her hemorrhoids twice a day. She has not had prior rectal surgery. She is scheduled to have an EGD by Dr. Ballard iin 2 days for dysphagia. The patient was not anemic on admission and I do not see that she has received any blood transfusions for her history of rectal bleeding. Since admission, her H&H is 11.1 and 33.3. Review of Systems Review of Systems: All systems reviewed & are unremarkable except as noted in HPI and below Constitutional: Constitutio
[2021-05-05 14:00] VITALS: BP 139/89; PULSE 91; RESP 16; TEMP 36.2; O2SAT 96
--- NOTE | 2021-05-05 16:56 | P.PNGI_ITS ---
Progress Note: A&P Additional Plan GI [facility] for Dr. Madrid 05 May 2021 Denies AP, N, V, BRBPR. Yue full liquids VSS soft/NT Hct 24, WBC 11 A/P A. Abnormal transaminases: likely related to illness; resolved B. Hematochezia: - Likely r/t hemorrhoids; resection per surgery - Patient is off anticoagulants - No active bleed - Follow H+H; borderline - Transfuse prn C. Dysphagia: for EGD with dilation Friday GURPREET [facility] [phone] Subjective Date/time seen: 05/05/21 16:56 Objective Data Vital Signs Vital Signs: Vital Signs - 24 hr 05/04/21 22:00 05/05/21 05:53 05/05/21 14:00 Temperature 36.8 C 36.8 C 36.2 C L Pulse Rate 85 93 91 Respiratory Rate 18 18 16 Blood Pressure 104/51 L 117/67 139/89 Pulse Oximetry 97 99 96 Intake/Output Intake/Output: Intake & Output 05/02/21 05/03/21 05/04/21 05/05/21 23:59 23:59 23:59 23:59 Intake Total 1000 3245 2387 Balance 1000 3245 2387 Meds/Results Medications: Active Medications Generic Name Dose Route Start Last Admin Trade Name Freq PRN Reason Stop Dose Admin Acetaminophen 650 mg 05/03/21 16:15 05/04/21 14:04 Acetaminophen 325 Mg Tablet PO 650 mg Q4H PRN Administration Mild Pain (1-3) or Fever Hydrocortisone Acetate 25 mg 05/04/21 21:00 05/05/21 09:44 Hydrocortisone Acetate 25 Mg Suppository RECTAL 25 mg Q12HR ILA Administration Morphine Sulfate 4 mg 05/03/21 16:15 05/05/21 02:32 Morphine Sulfate (*Crx) 4 Mg/Ml Inj IV PUSH 4 mg Q2H PRN Administration Pain Rated 7-10 Ondansetron HCl 4 mg 05/03/21 16:15 05/03/21 17:02 Ondansetron Inj 4 Mg/2 Ml Vial IV PUSH 4 mg Q4H PRN Administration Nausea Labs Labs: Laboratory Results - last 24 hr 05/05/21 05/05/21 06:50 08:12 WBC 5.4 RBC 3.39 L Hgb 11.1 L Hct 33.3 L MCV 98.2 MCH 32.7 D MCHC 33.3 RDW 17.4 H Plt Count 134 L MPV 10.9 H Immature Gran % (Auto) 0.2 Neut % (Auto) 62.2 Lymph % (Auto) 21.2 [place] % (Auto) 9.6 H Eos % (Auto) 5.9 H Baso % (Auto) 0.9 Lymph # (Auto) 1.15 [place] # (Auto) 0.5 Eos # (Auto) 0.3 Baso # (Auto) 0.1 Abs Immat Gran (auto) 0.01 Absolute Neuts (auto) 3.4 Absolute Nucleated RBC 0.0 Nucleated RBC % 0.0 Sodium 137 Potassium 3.2 L Chloride 109 H Carbon Dioxide 24 Anion Gap 4 L BUN 6 L D Creatinine 0.70 Estim Creat Clear Calc 45 Estimated GFR > 60 Glucose 92 Calcium 7.1 L Phosphorus 2.6 Magnesium 1.4 L Total Bilirubin 0.8 AST 32 ALT 7 Alkaline Phosphatase 170 H Total Protein 4.0 L Albumin 2.1 L
[2021-05-05 21:50] VITALS: BP 116/78; PULSE 77; RESP 18; TEMP 37.1; O2SAT 95
[2021-05-06 05:43] VITALS: BP 123/86; PULSE 98; RESP 18; TEMP 36.8; O2SAT 98
[2021-05-06 06:24] LABS: Basophils Absolute Auto 0.1 K/mm3 (0.0-0.1); Eosinophils Absolute Auto 0.3 K/mm3 (0-0.3); Eosinophils Percent Auto 4.6 % (0-4.4); Hematocrit 34.4 % (37.0-47.0); Hemoglobin 11.4 g/dL (12.0-15.0); Immature Granulocyte Absolute 0.01 K/mm3 (0.00-0.031); Immature Granulocyte Percent A 0.2 % (0-0.5); Lymphocytes Absolute Auto 1.56 K/mm3 (0.9-3.2); Lymphocytes Percent Auto 26.8 % (18.3-44.2); Mean Corpuscular HGB Conc 33.1 g/dl (32-36); Mean Corpuscular Volume 96.6 fl (80-100); Mean Platelet Volume 10.4 fl (7.4-10.4); Monocytes Absolute Auto 0.6 K/mm3 (0.1-0.6); Monocytes Percent Auto 9.8 % (2.6-8.5); Neutrophils Absolute Auto 3.4 K/mm3 (1.3-6.7); Neutrophils Percent Auto 57.6 % (45.5-73.1); Platelet Count Result 166 k/mm3 (150-375); Red Blood Count 3.56 M/mm3 (4.2-5.4); Red Cell Distribution Width 17.1 % (11.5-14.5); White Blood Count 5.8 K/mm3 (4.5-10.0)
[2021-05-06 06:35] LABS: Alanine Aminotransferase 7 U/L (4-35); Albumin Level 2.2 g/dL (3.5-5.1); Alkaline Phosphatase 190 U/L (38-126); Anion Gap 8 mmol/L (8-16); Aspartate Amino Transferase 31 U/L (14-36); Blood Urea Nitrogen 5 mg/dL (7-17); Calcium 7.2 mg/dL (8.4-10.2); Carbon Dioxide 21 mmol/L (22-30); Chloride 109 mmol/L (98-107); Estimated CRCL calculation 45 ml/min; Estimated Glomerular Filt Rate > 60; Glucose 80 mg/dL (65-110); Magnesium 1.3 mg/dL (1.6-2.3); Phosphorus 2.3 mg/dL (2.5-4.5); Potassium 3.1 mmol/L (3.4-5.0); Sodium 138 mmol/L (137-145)
--- NOTE | 2021-05-06 08:40 | PM.IMPN ---
Progress Note: A&P Assessment and Plan (1) Acute GI bleeding: Code(s): K92.2 - Gastrointestinal hemorrhage, unspecified Status: Acute (2) Hypokalemia: Code(s): E87.6 - Hypokalemia Status: Acute (3) Polymyalgia rheumatica: Code(s): M35.3 - Polymyalgia rheumatica Status: Acute (4) Hypomagnesemia: Code(s): E83.42 - Hypomagnesemia Status: Acute (5) Hyperthyroidism: Code(s): E05.90 - Thyrotoxicosis, unspecified without thyrotoxic crisis or storm Status: Chronic (6) GERD without esophagitis: Code(s): K21.9 - Gastro-esophageal reflux disease without esophagitis Status: Chronic (7) Essential (primary) hypertension: Code(s): I10 - Essential (primary) hypertension Status: Chronic (8) Rheumatoid arthritis: Code(s): M06.9 - Rheumatoid arthritis, unspecified Status: Chronic (9) Dysphagia: Code(s): R13.10 - Dysphagia, unspecified Status: Chronic (10) COPD (chronic obstructive pulmonary disease): Qualifiers: COPD type: unspecified COPD Qualified Code(s): J44.9 - Chronic obstructive pulmonary disease, unspecified Code(s): J44.9 - Chronic obstructive pulmonary disease, unspecified Status: Chronic Additional Plan 3 days hematochezia per pt. On eliquis at home for AFib and prior DVT/PE. Recent admission about a week ago for similar complaints. 04/06 colonoscopy showing colon polyp and diverticulosis and 3rd degree hemorrhoids, which was presumed to be source of bleeding, and given BID steroid cream. GI commenting that bleeding likely related to hemorrhoids, and keeping patient on low fiber diet. Surgery saw patient and willing to do hemorrhoidectomy early this week. For now, will trend hgb in am, hold Eliquis. Bowel rest & IV fluids. Will hold off on IV protonix for the moment as expect symptoms related to hemorrhoidal bleed. Continue Anusol suppositories per GI. Continue morphine & tylenol prn for pain. She has dysphagia, and is planned to have dilation tmoorrow with GI. NPO at midnight. Already holding AC. Of note, pt has chronic respiratory failure on 1-2L nc related to COPD & MALCOLM, which is currently at symptomatic baseline. Continue NC and CPAP at night. Time Spent With Patient Time with patient: less than 15 minutes Subjective Date/time seen: 05/06/21 08:40 no acute complaints resting comfortably Review of Systems Review of Systems: All systems reviewed & are unremarkable except as noted in HPI and below Exam Const: General: no acute distress Neck: Neck: no JVD Resp: Effort & Inspection: normal respiratory effort Auscultation: clear to auscultation bilaterally Cardio: Rate: regular rate Rhythm: regular rhythm GI: GI Palp: Yes Soft to palpation and No Tenderness to palpation present (GI) Objective Data Vital Signs Vital Signs: Vital Signs - 24 hr 05/05/21 14:00 05/05/21 21:50 05/06/21 05:43 Temperature 97.1 F L 98.8 F 98.2 F Pulse Rate 91 77 98 Respiratory Rate 16 18 18 Blood Pressure 139/89 116/78 123/86 Pulse Oximetry 96 95 98 Intake/Output Intake/Output: Intake & Output 05/03/21 05/04/21 05/05/21 05/06/21 23:59 23:59 23:59 23:59 Intake Total 1000 3245 2627 400 Balance 1000 3245 2627 400 Meds/Results Medications: Active Medications Generic Name Dose Route Start Last Admin Trade Name Freq PRN Reason Stop Dose Admin Acetaminophen 650 mg 05/03/21 16:15 05/04/21 14:04 Acetaminophen 325 Mg Tablet PO 650 mg Q4H PRN Administration Mild Pain (1-3) or Fever Hydrocortisone Acetate 25 mg 05/04/21 21:00 05/05/21 22:00 Hydrocortisone Acetate 25 Mg Suppository RECTAL 25 mg Q12HR ILA Administration Morphine Sulfate 4 mg 05/03/21 16:15 05/05/21 02:32 Morphine Sulfate (*Crx) 4 Mg/Ml Inj IV PUSH 4 mg Q2H PRN Administration Pain Rated 7-10 Ondansetron HCl 4 mg 05/03/21 16:15 05/03/21 17:02 Ondansetron Inj 4 Mg/2 Ml
[2021-05-06] MEDS: MAGNESIUM SULF 2 GM/WATER 50ML 2 GM/50 ML BAG IVPB (09:37)
[2021-05-06] MEDS: HYDROCORTISONE ACETATE 25 MG SUPPOSITORY RECTAL ×2 (09:38→21:46)
[2021-05-06] MEDS: POTASSIUM PHOS/SODIUM PHOS 250 MG TABLET PO (10:07)
--- NOTE | 2021-05-06 13:35 | WPDGIPROGNO ---
Progress Note: A&P Additional Plan GI [facility] for Dr. Ballard-Miguel A 05 May 2021 Having nausea currently with poor appetite. Denies AP, V, BRBPR. Yue full liquids VSS soft/NT Hct 33->34, WBC 11->6. Cr 0.7. TBili 1.0, A/P 190, AST31, ALT 7 A/P A. Abnormal transaminases: likely related to illness; resolved B. Abnormal A/P: - Likely multifactorial possibly illness vs med vs bone - Will check isoenzymes in am - Has gallstones on CT; consuder RUQ U/S vs HIDA C. Hematochezia: - Likely r/t hemorrhoids; resection per surgery - Anusol supp - Patient is off anticoagulants - No active bleed - Follow H+H; borderline - Transfuse prn D. Dysphagia: for EGD with dilation Friday Further recommendations per Dr. Ballard and Dr. Collins. Thanks, [facility] [phone] Subjective Date/time seen: 05/06/21 13:35 Objective Data Vital Signs Vital Signs: Vital Signs - 24 hr 05/05/21 14:00 05/05/21 21:50 05/06/21 05:43 Temperature 36.2 C L 37.1 C 36.8 C Pulse Rate 91 77 98 Respiratory Rate 16 18 18 Blood Pressure 139/89 116/78 123/86 Pulse Oximetry 96 95 98 Intake/Output Intake/Output: Intake & Output 05/03/21 05/04/21 05/05/21 05/06/21 23:59 23:59 23:59 23:59 Intake Total 1000 3245 2627 1000 Balance 1000 3245 2627 1000 Meds/Results Medications: Active Medications Generic Name Dose Route Start Last Admin Trade Name Freq PRN Reason Stop Dose Admin Acetaminophen 650 mg 05/03/21 16:15 05/04/21 14:04 Acetaminophen 325 Mg Tablet PO 650 mg Q4H PRN Administration Mild Pain (1-3) or Fever Hydrocortisone Acetate 25 mg 05/04/21 21:00 05/06/21 09:38 Hydrocortisone Acetate 25 Mg Suppository RECTAL 25 mg Q12HR ILA Administration Morphine Sulfate 4 mg 05/03/21 16:15 05/05/21 02:32 Morphine Sulfate (*Crx) 4 Mg/Ml Inj IV PUSH 4 mg Q2H PRN Administration Pain Rated 7-10 Ondansetron HCl 4 mg 05/03/21 16:15 05/03/21 17:02 Ondansetron Inj 4 Mg/2 Ml Vial IV PUSH 4 mg Q4H PRN Administration Nausea Labs Labs: Laboratory Results - last 24 hr 05/06/21 05/06/21 06:03 06:03 WBC 5.8 RBC 3.56 L Hgb 11.4 L Hct 34.4 L MCV 96.6 MCH 32.0 MCHC 33.1 RDW 17.1 H Plt Count 166 MPV 10.4 Immature Gran % (Auto) 0.2 Neut % (Auto) 57.6 Lymph % (Auto) 26.8 [place] % (Auto) 9.8 H Eos % (Auto) 4.6 H Baso % (Auto) 1.0 Lymph # (Auto) 1.56 [place] # (Auto) 0.6 Eos # (Auto) 0.3 Baso # (Auto) 0.1 Abs Immat Gran (auto) 0.01 Absolute Neuts (auto) 3.4 Absolute Nucleated RBC 0.0 Nucleated RBC % 0.0 Sodium 138 Potassium 3.1 L Chloride 109 H Carbon Dioxide 21 L Anion Gap 8 BUN 5 L Creatinine 0.70 Estim Creat Clear Calc 45 Estimated GFR > 60 Glucose 80 Calcium 7.2 L Phosphorus 2.3 L Magnesium 1.3 L Total Bilirubin 1.0 AST 31 ALT 7 Alkaline Phosphatase 190 H Total Protein 5.0 L Albumin 2.2 L
[2021-05-06 14:00] VITALS: BP 157/97; PULSE 103; RESP 18; TEMP 37.7; O2SAT 95
--- NOTE | 2021-05-06 16:21 | PC.NURSE ---
This nurse spoke with Dr. Dowling and made aware of total right knee replacement in 2017 and rheumatic fever at 8 years of age. Neither require antibiotic tx. Clarification r/t no Miralax ordered. No Miralax needed for EGD. Patient is aware.
[2021-05-06 18:00] VITALS: TEMP 37.7
[2021-05-06] MEDS: ACETAMINOPHEN 325 MG TABLET 650 MG PO (18:00)
[2021-05-06 21:34] VITALS: BP 107/57; PULSE 89; RESP 18; TEMP 37.2; O2SAT 97
[2021-05-07] VITALS (9 sets, daily range): BP systolic 124–165; BP diastolic 66–98; PULSE 86–115; RESP 14–26; TEMP 36.1–36.8; O2SAT 95–100
[2021-05-07 07:05] LABS: Alanine Aminotransferase 7 U/L (4-35); Albumin Level 2.2 g/dL (3.5-5.1); Alkaline Phosphatase 209 U/L (38-126); Anion Gap 6 mmol/L (8-16); Aspartate Amino Transferase 35 U/L (14-36); Bilirubin,Total 1.1 mg/dL (0.2-1.3); Blood Urea Nitrogen 5 mg/dL (7-17); Calcium 7.2 mg/dL (8.4-10.2); Carbon Dioxide 25 mmol/L (22-30); Chloride 106 mmol/L (98-107); Estimated CRCL calculation 52 ml/min; Estimated Glomerular Filt Rate > 60; Glucose 87 mg/dL (65-110); Magnesium 1.5 mg/dL (1.6-2.3); Phosphorus 2.5 mg/dL (2.5-4.5); Potassium 2.9 mmol/L (3.4-5.0); Sodium 137 mmol/L (137-145)
[2021-05-07 07:19] LABS: Basophils Percent Auto 0.8 % (0.2-1.2); Eosinophils Absolute Auto 0.3 K/mm3 (0-0.3); Eosinophils Percent Auto 5.4 % (0-4.4); Hematocrit 29.7 % (37.0-47.0); Hemoglobin 11.3 g/dL (12.0-15.0); Immature Granulocyte Absolute 0.01 K/mm3 (0.00-0.031); Immature Granulocyte Percent A 0.2 % (0-0.5); Lymphocytes Absolute Auto 1.34 K/mm3 (0.9-3.2); Mean Corpuscular Hemoglobin 37.7 pg (26-34); Mean Platelet Volume 10.1 fl (7.4-10.4); Monocytes Absolute Auto 0.6 K/mm3 (0.1-0.6); Monocytes Percent Auto 11.8 % (2.6-8.5); Neutrophils Absolute Auto 2.9 K/mm3 (1.3-6.7); Neutrophils Percent Auto 55.8 % (45.5-73.1); Platelet Count Result 113 k/mm3 (150-375); Red Cell Distribution Width 19.2 % (11.5-14.5); White Blood Count 5.2 K/mm3 (4.5-10.0)
[2021-05-07] MEDS: HYDROCORTISONE ACETATE 25 MG SUPPOSITORY RECTAL ×2 (08:20→21:08)
--- NOTE | 2021-05-07 10:31 | WPDANESEPPF ---
Anes - Initial Pre Proc Eval Procedure: Operation Date: 05/07/21 13:00 Proposed Procedures p Esophagogastroduodenoscopy - Ray Madrid MD Date/Time: 05/07/21 10:31 Surgeon: Halle Velasco MD Pre Op Diagnosis: gi bleeding Patient Data Age: 80 Gender: F Height: 1.6 m Weight: 68 kg Last Vital Signs Temp 36.1 C L 05/07/21 10:26 Pulse 98 05/07/21 10:26 Resp 18 05/07/21 10:26 BP 143/76 H 05/07/21 10:26 Pulse Ox 97 05/07/21 10:26 Allergies Allergy/AdvReac Type Severity Reaction Status Date / Time No Known Allergies Allergy Verified 05/07/21 10:25 Home Medications Medication Instructions Recorded Confirmed Type ascorbic acid (vitamin C) 500 mg 500 mg PO DAILY 07/02/19 05/04/21 History capsule omeprazole 40 mg capsule,delayed 40 mg PO DAILY 07/02/19 05/04/21 History release atorvastatin 40 mg tablet 40 mg PO QPM 03/06/20 05/04/21 History potassium chloride 10 meq PO DAILY 05/24/20 05/04/21 History folic acid 400 mcg tablet 0.4 mg PO DAILY 05/25/20 05/04/21 History apixaban 5 mg tablet 2.5 mg PO DAILY tablet 09/21/20 05/04/21 History Orencia 125 mg SUBCUT WEEKLY 04/06/21 05/04/21 History cholecalciferol (vitamin D3) 10 mcg PO DAILY 04/06/21 05/04/21 History [Vitamin D3] ferrous sulfate [Iron (ferrous 325 mg PO DAILY 04/06/21 05/04/21 History sulfate)] lisinopril 20 mg PO DAILY 04/06/21 05/04/21 History hydrocortisone-pramoxine 1 applic RECTAL Q12HR 30 Days #4 g 04/08/21 05/04/21 Rx [Analpram-HC Singles] miconazole nitrate [Aloe Anderson 1 applic TOPICAL Q12HR #1692 g 04/08/21 05/04/21 Rx Antifungal (micon)] biotin 10,000 mcg PO DAILY 04/30/21 05/04/21 History calcium carbonate 600 mg PO DAILY 04/30/21 05/04/21 History hydrocodone-acetaminophen 1 tablet PO Q6H PRN 04/30/21 05/04/21 History prochlorperazine maleate 10 mg 10 mg PO Q6H PRN 10 Days #40 tablet 05/01/21 05/04/21 Rx tablet Laboratory Tests 05/07/21 05/07/21 05:59 05:59 WBC 5.2 K/mm3 K/mm3 (4.5-10.0) RBC 3.00 M/mm3 L M/mm3 (4.2-5.4) Hgb 11.3 g/dL L g/dL (12.0-15.0) Hct 29.7 % L % (37.0-47.0) MCV 99.0 fl fl (80-100) MCH 37.7 pg H D pg (26-34) MCHC 38.0 g/dl H D g/dl (32-36) RDW 19.2 % H % (11.5-14.5) Plt Count 113 k/mm3 L k/mm3 (150-375) MPV 10.1 fl fl (7.4-10.4) Immature Gran % (Auto) 0.2 % % (0-0.5) Neut % (Auto) 55.8 % % (45.5-73.1) Lymph % (Auto) 26.0 % % (18.3-44.2) [place] % (Auto) 11.8 % H % (2.6-8.5) Eos % (Auto) 5.4 % H % (0-4.4) Baso % (Auto) 0.8 % % (0.2-1.2) Lymph # (Auto) 1.34 K/mm3 K/mm3 (0.9-3.2) [place] # (Auto) 0.6 K/mm3 K/mm3 (0.1-0.6) Eos # (Auto) 0.3 K/mm3 K/mm3 (0-0.3) Baso # (Auto) 0.0 K/mm3 K/mm3 (0.0-0.1) Abs Immat Gran (auto) 0.01 K/mm3 K/mm3 (0.00-0.031) Absolute Neuts (auto) 2.9 K/mm3 K/mm3 (1.3-6.7) Absolute Nucleated RBC 0.0 K/mm3 K/mm3 (0.0-0.012) Nucleated RBC % 0.0 % % (0.0-0.2) Sodium 137 mmol/L mmol/L (137-145) Potassium 2.9 mmol/L L mmol/L (3.4-5.0) Chloride 106 mmol/L mmol/L (98-107) Carbon Dioxide 25 mmol/L mmol/L (22-30) Anion Gap 6 mmol/L L mmol/L (8-16) BUN 5 mg/dL L mg/dL (7-17) Creatinine 0.60 mg/dL L mg/dL (0.7-1.0) Estim Creat Clear Calc 52 ml/min ml/min Estimated GFR > 60 (59 - ) Glucose 87 mg/dL mg/dL (65-110) Calcium 7.2 mg/dL L mg/dL (8.4-10.2) Phosphorus 2.5 mg/dL mg/dL (2.5-4.5) Magnesium 1.5 mg/dL L mg/dL (1.6-2.3) Total Bilirubin 1.1 mg/dL mg/dL (0.2-1.3) AST 35 U/L U/L (14-36) ALT 7 U/L U/L (4-35) Alkaline Phosphatase 209 U/L H U/L (38-126) Total Protein 5.0 g/dL L g/dL (6.3-8.2) Albumin 2.2 g/dL L g/dL (3.5-5.1) Patient hx anesthesia problems: none Family h
[2021-05-07] MEDS: LACTATED RINGERS 1,000 ML 150 ML IV CONT (10:34)
[2021-05-07] MEDS: MORPHINE SULFATE (*CRX) 4 MG/ML INJ IV PUSH ×3 (14:03→21:20)
--- NOTE | 2021-05-07 15:56 | PM.PNGS ---
Progress Note: A&P Assessment and Plan (1) External hemorrhoids with complication: Code(s): K64.4 - Residual hemorrhoidal skin tags Status: Chronic Assessment and Plan: Plan to proceed with excision internal and external hemorrhoids at left lateral position. Possibly rubber band ligation of internal hemorrhoids as well. Hemorrhoids considered the site of rectal bleeding. Plan to proceed at about 2-230 tomorrow afternoon. (2) Internal hemorrhoids with complication: Code(s): K64.8 - Other hemorrhoids Status: Chronic Assessment and Plan: See above. (3) Anticoagulant long-term use: Code(s): Z79.01 - long-term (current) use of anticoagulants Status: Chronic Assessment and Plan: Has been held. (4) Rectal bleeding: Code(s): K62.5 - Hemorrhage of anus and rectum Status: Chronic Assessment and Plan: Source is felt to be the internal hemorrhoids. Subjective Subjective Date/Time Seen: 05/07/21 15:56 Patient reports: no new complaints Interval history: had EGD with dilatation today. Results noted. Exam GI: Rectal Exam: External hemorrhoid(s) present and Internal hemorrhoid(s) present Objective Data Vital Signs Vital Signs: Vital Signs - 24 hr 05/06/21 18:00 05/06/21 21:34 05/07/21 05:32 Temperature 37.7 C H 37.2 C 36.7 C Pulse Rate 89 93 Respiratory Rate 18 18 Blood Pressure 107/57 L 149/91 H Pulse Oximetry 97 98 05/07/21 10:26 05/07/21 11:14 05/07/21 11:24 Temperature 36.1 C L Pulse Rate 98 94 98 Respiratory Rate 18 26 H 26 H Blood Pressure 143/76 H 124/83 125/82 Pulse Oximetry 97 98 97 05/07/21 11:34 05/07/21 11:44 05/07/21 14:00 Temperature 36.8 C Pulse Rate 95 99 102 H Respiratory Rate 26 H 14 18 Blood Pressure 124/84 135/85 165/98 H Pulse Oximetry 100 99 96 05/07/21 14:59 Temperature Pulse Rate 86 Respiratory Rate Blood Pressure 146/72 H Pulse Oximetry Intake/Output Intake/Output: Intake & Output 05/04/21 05/05/21 05/06/21 05/07/21 23:59 23:59 23:59 23:59 Intake Total 3241 2621 1360 730 Balance 3245 2627 1360 730 Meds/Results Medications: Active Medications Generic Name Dose Route Start Last Admin Trade Name Freq PRN Reason Stop Dose Admin Acetaminophen 650 mg 05/03/21 16:15 05/06/21 18:00 Acetaminophen 325 Mg Tablet PO 650 mg Q4H PRN Administration Mild Pain (1-3) or Fever Hydrocortisone Acetate 25 mg 05/04/21 21:00 05/07/21 08:20 Hydrocortisone Acetate 25 Mg Suppository RECTAL 25 mg Q12HR [facility] Administration Morphine Sulfate 4 mg 05/03/21 16:15 05/07/21 14:03 Morphine Sulfate (*Crx) 4 Mg/Ml Inj IV PUSH 4 mg Q2H PRN Administration Pain Rated 7-10 Ondansetron HCl 4 mg 05/03/21 16:15 05/03/21 17:02 Ondansetron Inj 4 Mg/2 Ml Vial IV PUSH 4 mg Q4H PRN Administration Nausea Pantoprazole Sodium 40 mg 05/07/21 21:00 Pantoprazole 40 Mg Tablet PO Q12HR [facility] Labs Labs: Laboratory Results - last 24 hr 05/07/21 05/07/21 05:59 05:59 WBC 5.2 RBC 3.00 L Hgb 11.3 L Hct 29.7 L MCV 99.0 MCH 37.7 H D MCHC 38.0 H D RDW 19.2 H Plt Count 113 L MPV 10.1 Immature Gran % (Auto) 0.2 Neut % (Auto) 55.8 Lymph % (Auto) 26.0 [place] % (Auto) 11.8 H Eos % (Auto) 5.4 H Baso % (Auto) 0.8 Lymph # (Auto) 1.34 [place] # (Auto) 0.6 Eos # (Auto) 0.3 Baso # (Auto) 0.0 Abs Immat Gran (auto) 0.01 Absolute Neuts (auto) 2.9 Absolute Nucleated RBC 0.0 Nucleated RBC % 0.0 Sodium 137 Potassium 2.9 L Chloride 106 Carbon Dioxide 25 Anion Gap 6 L BUN 5 L Creatinine 0.60 L Estim Creat Clear Calc 52 Estimated GFR > 60 Glucose 87 Calcium 7.2 L Phosphorus 2.5 Magnesium 1.5 L Total Bilirubin 1.1 AST 35 ALT 7 Alkaline Phosphatase 209 H Total Protein 5.0 L Albumin 2.2 L
--- NOTE | 2021-05-07 16:27 | PCAUD ---
Pt scheduled for hemorrhoidectomy tomorrow 05/08/21, pt to be NPO at midnight.
--- NOTE | 2021-05-07 19:48 | PM.IMPN ---
Progress Note: A&P Assessment and Plan (1) Acute GI bleeding: Code(s): K92.2 - Gastrointestinal hemorrhage, unspecified Status: Acute Assessment and Plan: Likely related to 3 days hematochezia per pt. On eliquis at home for AFib and prior DVT/PE. . 04/06 colonoscopy showing colon polyp and diverticulosis and 3rd degree hemorrhoids, which was presumed to be source of bleeding, and given BID steroid cream. S/P hemorrhoidectomy today. Monitor H/H. Pain management (2) Hypokalemia: Code(s): E87.6 - Hypokalemia Status: Acute Assessment and Plan: Supplemented. (3) Polymyalgia rheumatica: Code(s): M35.3 - Polymyalgia rheumatica Status: Acute (4) Hypomagnesemia: Code(s): E83.42 - Hypomagnesemia Status: Acute (5) Hyperthyroidism: Code(s): E05.90 - Thyrotoxicosis, unspecified without thyrotoxic crisis or storm Status: Chronic (6) GERD without esophagitis: Code(s): K21.9 - Gastro-esophageal reflux disease without esophagitis Status: Chronic (7) Essential (primary) hypertension: Code(s): I10 - Essential (primary) hypertension Status: Chronic (8) Rheumatoid arthritis: Code(s): M06.9 - Rheumatoid arthritis, unspecified Status: Chronic (9) Dysphagia: Code(s): R13.10 - Dysphagia, unspecified Status: Chronic Assessment and Plan: s/p balloon dilation (10) COPD (chronic obstructive pulmonary disease): Qualifiers: COPD type: unspecified COPD Qualified Code(s): J44.9 - Chronic obstructive pulmonary disease, unspecified Code(s): J44.9 - Chronic obstructive pulmonary disease, unspecified Status: Chronic Assessment and Plan: pt has chronic respiratory failure on 1-2L nc related to COPD & MALCOLM, which is currently at symptomatic baseline. Continue NC and CPAP at night. Subjective Date/time seen: 05/07/21 19:48 S: PAtient is examined at the bedside. She was NPO and feels weak. She was scheduled for excision internal and external hemorrhoids at left lateral position and balloon esophageal dilation. Review of Systems Review of Systems: All systems reviewed & are unremarkable except as noted in HPI and below Constitutional: Constitutional: Reports fatigue and Reports weakness Neurologic: Reports weakness Endocrine: Endocrine: Reports fatigue Exam Narrative: GENERAL: The patient is well developed, not in acute distress HEENT: Nonicteric sclerae, PERRLA, EOMI. Oropharynx clear. Moist mucous membranes. Conjunctivae appear well perfused. CHEST: Chest wall is nontender. HEART: Regular rate and rhythm without murmur, rubs, or gallops LUNGS: Clear to auscultation bilaterally. no respiratory distress ABDOMEN: Soft, positive bowel sounds, non-tender, no organomegaly. SKIN: No rash, no excessive bruising, petechiae, or purpura. NEUROLOGIC: Cranial nerves II-XII intact, alert and oriented x 3, no gross motor deficits EXTREMITIES: no edema, cyanosis or clubbing Const: General: no acute distress Neck: Neck: no JVD Resp: Effort & Inspection: normal respiratory effort Auscultation: clear to auscultation bilaterally Cardio: Rate: regular rate Rhythm: regular rhythm Extrem: General: normal exam except as noted and no edema Objective Data Vital Signs Vital Signs: Vital Signs - 24 hr 05/06/21 21:34 05/07/21 05:32 05/07/21 10:26 Temperature 98.9 F 98.1 F 97 F L Pulse Rate 89 93 98 Respiratory Rate 18 18 18 Blood Pressure 107/57 L 149/91 H 143/76 H Pulse Oximetry 97 98 97 05/07/21 11:14 05/07/21 11:24 05/07/21 11:34 Temperature Pulse Rate 94 98 95 Respiratory Rate 26 H 26 H 26 H Blood Pressure 124/83 125/82 124/84 Pulse Oximetry 98 97 100 05/07/21 11:44 05/07/21 14:00 05/07/21 14:59 Temperature 98.3 F Pulse Rate 99 102 H 86 Respiratory Rate 14 18 Blood Pressure 135/85 165/98 H 146/72 H Pulse Oximetry 99 96 Intake/Output Intake/Output: Intake & Outpu
[2021-05-07 20:57] LABS: Potassium 2.7 mmol/L (3.4-5.0)
[2021-05-07] MEDS: PANTOPRAZOLE 40 MG TABLET PO (21:08)
[2021-05-07] MEDS: BISACODYL 5 MG TABLET EC PO (21:08)
[2021-05-08] VITALS (13 sets, daily range): BP systolic 104–147; BP diastolic 74–87; PULSE 100–130; RESP 12–22; TEMP 36.1–37.7; O2SAT 92–100
[2021-05-08] MEDS: ONDANSETRON INJ 4 MG/2 ML VIAL IV PUSH ×2 (02:05→21:25)
[2021-05-08 02:47] LABS: Potassium 3.3 mmol/L (3.4-5.0)
--- NOTE | 2021-05-08 07:51 | WPDANESPN ---
Anes - Prog Note Post-Op Date/Time: 05/08/21 07:51 Vital Signs: Last Vital Signs Temp 98.6 F 05/08/21 06:00 Pulse 105 H 05/08/21 06:00 Resp 18 05/08/21 06:00 BP 129/82 05/08/21 06:00 Pulse Ox 96 05/08/21 06:00 Pain Score (VAS): 0 I/O: Intake & Output 05/07/21 05/07/21 05/08/21 15:59 23:59 07:59 Intake Total 480 240 500 Balance 480 240 500 Laboratory Tests 05/07/21 05:59 05/08/21 02:19 05/07/21 05/07/21 05/08/21 13:10 20:18 02:19 Potassium 2.7 L* 3.3 L Alkaline Phosphatase Pending Alk Phos Iso-Intestine Pending Alk Phos Iso-Bone Pending Alk Phos Iso-Liver Pending Alk Phos Iso-Placenta Pending Alk Phos Macrohepat Isoenz Pending ALP Isoenzymes Interp Pending Post-procedural complaints: none Patient Feedback: Patient satisfied with anesthetic care.
--- NOTE | 2021-05-08 07:55 | PM.IMPN ---
Progress Note: A&P Assessment and Plan (1) Acute GI bleeding: Code(s): K92.2 - Gastrointestinal hemorrhage, unspecified Status: Acute Assessment and Plan: Likely related to 3 days hematochezia per pt. On eliquis at home for AFib and prior DVT/PE. . 04/06 colonoscopy showing colon polyp and diverticulosis and 3rd degree hemorrhoids, which was presumed to be source of bleeding, and given BID steroid cream. S/P hemorrhoidectomy by surgery and esophageal dilation by GI on 05/08/2021. Monitor H/H. Pain management (2) Hypokalemia: Code(s): E87.6 - Hypokalemia Status: Acute Assessment and Plan: Supplemented. Monitor repeat K. (3) Polymyalgia rheumatica: Code(s): M35.3 - Polymyalgia rheumatica Status: Acute (4) Hypomagnesemia: Code(s): E83.42 - Hypomagnesemia Status: Acute Assessment and Plan: Monitor mag level. (5) Hyperthyroidism: Code(s): E05.90 - Thyrotoxicosis, unspecified without thyrotoxic crisis or storm Status: Chronic (6) GERD without esophagitis: Code(s): K21.9 - Gastro-esophageal reflux disease without esophagitis Status: Chronic Assessment and Plan: PPI PRN (7) Essential (primary) hypertension: Code(s): I10 - Essential (primary) hypertension Status: Chronic Assessment and Plan: Current BP 147/87. Continue lisinopril 20 mg PO daily Monitor BP. (8) Rheumatoid arthritis: Code(s): M06.9 - Rheumatoid arthritis, unspecified Status: Chronic (9) Dysphagia: Code(s): R13.10 - Dysphagia, unspecified Status: Chronic Assessment and Plan: s/p balloon dilation (10) COPD (chronic obstructive pulmonary disease): Qualifiers: COPD type: unspecified COPD Qualified Code(s): J44.9 - Chronic obstructive pulmonary disease, unspecified Code(s): J44.9 - Chronic obstructive pulmonary disease, unspecified Status: Chronic Assessment and Plan: pt has chronic respiratory failure on 1-2L nc related to COPD & MALCOLM, which is currently at symptomatic baseline. Continue NC and CPAP at night. Subjective Date/time seen: 05/08/21 07:55 S: PAtient is examined at the bedside. She feels very weak. She was NPO for excision 2 complexes internal and external hemorrhoids, rubber band ligation internal hemorrhoid Review of Systems Review of Systems: All systems reviewed & are unremarkable except as noted in HPI and below Constitutional: Constitutional: Reports fatigue and Reports weakness Neurologic: Reports weakness Endocrine: Endocrine: Reports fatigue Exam Narrative: GENERAL: The patient is well developed, not in acute distress HEENT: Nonicteric sclerae, PERRLA, EOMI. Oropharynx clear. Moist mucous membranes. Conjunctivae appear well perfused. CHEST: Chest wall is nontender. HEART: Regular rate and rhythm without murmur, rubs, or gallops LUNGS: Clear to auscultation bilaterally. no respiratory distress ABDOMEN: Soft, positive bowel sounds, non-tender, no organomegaly. SKIN: No rash, no excessive bruising, petechiae, or purpura. NEUROLOGIC: Cranial nerves II-XII intact, alert and oriented x 3, no gross motor deficits EXTREMITIES: no edema, cyanosis or clubbing Const: General: no acute distress Neck: Neck: no JVD Resp: Effort & Inspection: normal respiratory effort Auscultation: clear to auscultation bilaterally Cardio: Rate: regular rate Rhythm: regular rhythm Extrem: General: normal exam except as noted and no edema Objective Data Vital Signs Vital Signs: Vital Signs - 24 hr 05/07/21 10:26 05/07/21 11:14 05/07/21 11:24 Temperature 97 F L Pulse Rate 98 94 98 Respiratory Rate 18 26 H 26 H Blood Pressure 143/76 H 124/83 125/82 Pulse Oximetry 97 98 97 05/07/21 11:34 05/07/21 11:44 05/07/21 14:00 Temperature 98.3 F Pulse Rate 95 99 102 H Respiratory Rate 26 H 14 18 Blood Pressure 124/84 135/85 165/98 H Pulse Oximetry 100 99 96 09/2
--- NOTE | 2021-05-08 10:42 | PCOTNOTE ---
Attempted OT evaluation, patient will be off the unit for a procedure today, will follow and attempt after procedure.
[2021-05-08] MEDS: MORPHINE SULFATE (*CRX) 4 MG/ML INJ IV PUSH (11:58)
--- NOTE | 2021-05-08 13:09 | PC.NURSE ---
pt taken to surgery at 1pm.
--- NOTE | 2021-05-08 13:41 | WPDGIPROGNO ---
Progress Note: A&P Assessment and Plan (1) Rectal bleeding: Code(s): K62.5 - Hemorrhage of anus and rectum Status: Chronic Assessment and Plan: no more episodes, from hemorrhoids surgery to perform hemorrhoidectomy (2) Esophageal ring: Code(s): K22.2 - Esophageal obstruction Status: Acute Assessment and Plan: very subtle and dilated today, tolerating diet no contraindications by gi standpoint to discharge (3) Acute GI bleeding: Code(s): K92.2 - Gastrointestinal hemorrhage, unspecified Status: Acute Assessment and Plan: resolved, stable hb (4) External hemorrhoids with complication: Code(s): K64.4 - Residual hemorrhoidal skin tags Status: Chronic (5) Anticoagulant long-term use: Code(s): Z79.01 - shelter (current) use of anticoagulants Status: Chronic (6) Hypokalemia: Code(s): E87.6 - Hypokalemia Status: Acute Assessment and Plan: repleting Subjective Date/time seen: 05/08/21 13:41 Interval history: egd yesterday with mild gastritis and subtle non-obstructing esophageal ring dilation up to 20mm with TSS balloon, denies any new issues today. Review of Systems Review of Systems: All systems reviewed & are unremarkable except as noted in HPI and below Exam Const: General: comfortable and no acute distress HENMT: General nose exam: Normal nares present Eyes: General: appearance normal, both eyes and all related structures Neck: Neck: no JVD Resp: Auscultation: clear to auscultation bilaterally Cardio: Rate: regular rate Rhythm: regular rhythm GI: Inspection: non-distended GI Palp: Yes Soft to palpation and No Guarding due to palpation present (GI) Auscultation: normal bowel sounds Skin: General skin exam: normal color Neuro: Speech: normal speech Extrem: General: normal to inspection Psych: Mental Status: mental status grossly normal Objective Data Vital Signs Vital Signs: Vital Signs - 24 hr 05/07/21 14:00 05/07/21 14:59 05/07/21 22:00 Temperature 98.3 F 98.1 F Pulse Rate 102 H 86 115 H Respiratory Rate 18 18 Blood Pressure 165/98 H 146/72 H 125/66 Pulse Oximetry 96 95 05/08/21 06:00 05/08/21 13:10 Temperature 98.6 F 96.9 F L Pulse Rate 105 H 100 Respiratory Rate 18 18 Blood Pressure 129/82 124/81 Pulse Oximetry 96 100 Intake/Output Intake/Output: Intake & Output 05/05/21 05/06/21 05/07/21 05/08/21 23:59 23:59 23:59 23:59 Intake Total 2627 1360 970 500 Balance 2627 1360 970 500 Meds/Results Medications: Active Medications Generic Name Dose Route Start Last Admin Trade Name Freq PRN Reason Stop Dose Admin Acetaminophen 650 mg 05/03/21 16:15 05/06/21 18:00 Acetaminophen 325 Mg Tablet PO 650 mg Q4H PRN Administration Mild Pain (1-3) or Fever Fentanyl Citrate 25 mcg 05/08/21 13:35 Fentanyl Citrate Inj (*Crx) 100 Mcg/2 Ml Vial IV PUSH Q2M PRN Pain Hydrocortisone Acetate 25 mg 05/04/21 21:00 05/08/21 11:20 Hydrocortisone Acetate 25 Mg Suppository RECTAL Not Given Q12HR ILA Potassium Chloride 500 mls @ 125 mls/hr 05/08/21 10:23 05/08/21 11:50 Kcl 40 Meq/D5w 500 Ml Peripheral IVPB 05/08/21 14:22 125 mls/hr ONCE ONE Administration Potassium Chloride 500 mls @ 125 mls/hr 05/08/21 15:00 Kcl 40 Meq/D5w 500 Ml Peripheral IVPB 05/08/21 18:59 ONCE ONE Lactated Ringer's 1,000 mls @ 30 mls/hr 05/08/21 13:35 Lr - Lactated Ringers Iv IV CONT .Q24H ILA Lactated Ringer's 1,000 mls @ 30 mls/hr 05/08/21 13:35 Lr - Lactated Ringers Iv IV CONT .Q24H ILA Morphine Sulfate 4 mg 05/03/21 16:15 05/08/21 11:58 Morphine Sulfate (*Crx) 4 Mg/Ml Inj IV PUSH 4 mg Q2H PRN Administration Pain Rated 7-10 Ondansetron HCl 4 mg 05/03/21 16:15 05/08/21 02:05 Ondansetron Inj 4 Mg/2 Ml Vial IV PUSH 4 mg Q4H PRN Administration Nausea Ondansetron HCl 4 mg 05/08
[2021-05-08] MEDS: LACTATED RINGERS 1,000 ML 30 ML IV CONT (13:42)
--- NOTE | 2021-05-08 14:10 | WPDHPUPDATE1 ---
History and Physical Update Update Date/Time: 05/08/21 14:10 History and Physical has been reviewed, including an updated exam of the patient. There are NO changes in the patient's condition. Risks, benefits, and alternatives have been discussed and questions answered. Patient agrees to proceed with procedure.
[2021-05-08] MEDS: fentaNYL CITRATE INJ (*CRX) 100 MCG/2 ML VIAL 25 MCG IV PUSH ×4 (15:23→15:42)
--- NOTE | 2021-05-08 15:28 | W.PM.PROC2 ---
Procedure Note - Detailed Date of Procedure 05/08/21 Pre-op Diagnosis Bleeding, prolapse, internal and external hemorrhoids Post-op Diagnosis same Procedure Performed Excision 2 complexes internal and external hemorrhoids, rubber band ligation internal hemorrhoid Surgeon Sean Collins MD [employer] Lisa Triplett [facility] Anesthesia general and local (0.5% Marcaine with Exparel) Indications Patient has had multiple episodes of lower GI bleeding. She had a colonoscopy in late March. The source of bleeding was felt to be internal and external hemorrhoids. She was again admitted with rectal bleeding and hematochezia. She is taken to surgery now for hemorrhoidectomy. Findings There were large internal and external hemorrhoids at the left lateral and right posterior position. There was also an internal hemorrhoid at the right anterior position. The larger hemorrhoids were excised. The right anterior internal hemorrhoid was rubber-band ligated. Description of Procedure The patient was taken to surgery and induced into general anesthesia. She was placed in prone en-knife position. The buttocks were taped apart. Prep and drape was carried out. Hill-Mando anoscope for used to evaluate the distal rectum and anal canal. Findings were as above. Local anesthetic was infiltrated using 20 cc deep subdermal 20 cc intra sphincteric of the combination of bupivacaine and Exparel as noted above. We then started by exposing the largest complex in the left lateral position. This complex of internal and external hemorrhoids was excised and sent to pathology labeled appropriately. The wound was closed with running locking 4-0 chromic suture. There was also a good-sized internal and external hemorrhoidal complex at the right posterior position. Likewise this complex was excised with the cautery. It was sent to pathology labeled appropriately. This wound was also closed with running locking 4-0 chromic suture. Finally some residual internal hemorrhoids at the right anterior position were noted and were rubber-band ligated. No other anorectal pathology was noted. We then dressed the wound with Xeroform gauze fluffs and Medipore tape. The patient was returned to a supine position. She was awakened, extubated and then taken to recovery in stable condition. Estimated blood loss was 10 cc. No complications were noted. Sponge and needle counts were correct x2. Estimated Blood Loss -10.0 Drains No Packing No Pathology yes (Left lateral internal and external hemorrhoids, right posterior internal and external hemorrhoids) Complications None Condition stable Disposition PACU
[2021-05-08] MEDS: PANTOPRAZOLE 40 MG TABLET PO ×2 (16:28→21:22)
--- NOTE | 2021-05-08 16:30 | PC.NURSE ---
pt pack from surgery at 1620.
[2021-05-08] MEDS: ATORVASTATIN 40 MG TABLET PO (17:37)
[2021-05-08] MEDS: MINERAL OIL 30 ML UDC 15 ML PO (17:37)
[2021-05-08] MEDS: PSYLLIUM POWDER PACKET 1 PACKET PO (17:37)
[2021-05-08 19:25] LABS: Anion Gap 5 mmol/L (8-16); Blood Urea Nitrogen 7 mg/dL (7-17); Calcium 7.9 mg/dL (8.4-10.2); Carbon Dioxide 26 mmol/L (22-30); Chloride 103 mmol/L (98-107); Estimated CRCL calculation 45 ml/min; Estimated Glomerular Filt Rate > 60; Glucose 139 mg/dL (65-110); Magnesium 1.6 mg/dL (1.6-2.3); Potassium 4.2 mmol/L (3.4-5.0); Sodium 134 mmol/L (137-145)
[2021-05-08 19:33] LABS: Basophils Absolute Auto 0.1 K/mm3 (0.0-0.1); Eosinophils Absolute Auto 0.3 K/mm3 (0-0.3); Eosinophils Percent Auto 3.5 % (0-4.4); Hemoglobin 13.1 g/dL (12.0-15.0); Immature Granulocyte Absolute 0.02 K/mm3 (0.00-0.031); Immature Granulocyte Percent A 0.3 % (0-0.5); Lymphocytes Absolute Auto 1.91 K/mm3 (0.9-3.2); Lymphocytes Percent Auto 26.4 % (18.3-44.2); Mean Corpuscular HGB Conc 31.2 g/dl (32-36); Mean Corpuscular Hemoglobin 29.9 pg (26-34); Mean Corpuscular Volume 95.9 fl (80-100); Mean Platelet Volume 9.2 fl (7.4-10.4); Monocytes Absolute Auto 0.5 K/mm3 (0.1-0.6); Monocytes Percent Auto 7.1 % (2.6-8.5); Neutrophils Absolute Auto 4.5 K/mm3 (1.3-6.7); Neutrophils Percent Auto 61.7 % (45.5-73.1); Platelet Count Result 259 k/mm3 (150-375); Red Blood Count 4.38 M/mm3 (4.2-5.4); Red Cell Distribution Width 16.3 % (11.5-14.5); White Blood Count 7.2 K/mm3 (4.5-10.0)
[2021-05-08] MEDS: ENOXAPARIN 30 MG/0.3 ML SYRINGE SUB-Q (21:22)
[2021-05-08] MEDS: HYDROcodone/acetaminophen (*CRX) 7.5-325 MG TABLET 1 TAB PO (21:29)
[2021-05-08] MEDS: METOCLOPRAMIDE HCL INJ 10 MG/2 ML VIAL IV PUSH (23:15)
[2021-05-09] VITALS (24 sets, daily range): BP systolic 88–122; BP diastolic 49–86; PULSE 93–144; RESP 12–22; TEMP 36.5–38; O2SAT 90–98
[2021-05-09 00:07] LABS: Hematocrit 43.2 % (37.0-47.0); Hemoglobin 13.5 g/dL (12.0-15.0); Mean Corpuscular HGB Conc 31.3 g/dl (32-36); Mean Corpuscular Hemoglobin 29.8 pg (26-34); Mean Corpuscular Volume 95.4 fl (80-100); Mean Platelet Volume 10.6 fl (7.4-10.4); Platelet Count Result 236 k/mm3 (150-375); Red Blood Count 4.53 M/mm3 (4.2-5.4); Red Cell Distribution Width 16.5 % (11.5-14.5); White Blood Count 8.2 K/mm3 (4.5-10.0)
[2021-05-09 00:11] LABS: Anion Gap 7 mmol/L (8-16); Blood Urea Nitrogen 7 mg/dL (7-17); Calcium 8.2 mg/dL (8.4-10.2); Carbon Dioxide 23 mmol/L (22-30); Chloride 103 mmol/L (98-107); Estimated CRCL calculation 45 ml/min; Estimated Glomerular Filt Rate > 60; Glucose 131 mg/dL (65-110); Potassium 4.2 mmol/L (3.4-5.0); Sodium 133 mmol/L (137-145)
--- NOTE | 2021-05-09 00:28 | ECG_ITS ---
Measurements Intervals [place] Rate: 139 P: 33 UT: 151 QRS: -2 QRSD: 74 T: 46 QT: 329 QTc: 502 Interpretive Statements SINUS TACHYCARDIA MINIMAL Q WAVES- HIGH LATERAL LEADS BORDERLINE ST ABNORMALITY- HIGH LATERAL LEADS BASELINE ARTIFACT- III ABNORMAL ECG Electronically Signed On 05-09-2021 7:01:46 CDT by Juan Antonio Tolbert D.O.
[2021-05-09] MEDS: ONDANSETRON INJ 4 MG/2 ML VIAL IV PUSH (01:34)
[2021-05-09] MEDS: FUROSEMIDE INJ 40 MG/4 ML VIAL IV PUSH (01:40)
--- NOTE | 2021-05-09 02:05 | PC.NURSE ---
attempting to reach dr. leggett in reference to elevated heart rate in 140's, sustained. not answering ext [phone] or direct per vocera
[2021-05-09 02:16] LABS: Lactic Acid Reflex 3.5 mmol/L (0.7-2.1)
--- NOTE | 2021-05-09 02:18 | ECG_ITS ---
Measurements Intervals [place] Rate: 146 P: 39 HI: 148 QRS: 11 QRSD: 72 T: 39 QT: 326 QTc: 509 Interpretive Statements SINUS TACHYCARDIA MINIMAL Q WAVES- HIGH LATERAL LEADS NONSPECIFIC T-WAVE ABNORMALITY- INFERIOR LEADS ABNORMAL ECG Electronically Signed On 05-09-2021 11:35:43 CDT by Juan Antonio Tolbert D.O.
[2021-05-09] MEDS: diphenhydrAMINE HCl INJ 50 MG/ML VIAL 25 MG IV PUSH (03:48)
--- NOTE | 2021-05-09 03:55 | PC.NURSE ---
patient transferred from [address] [place] [address] at 0325 with increased oxygen need, increased nausea and vomiting. temp on and off, change in mental status. cleary catheter placed and urine it a thick angel color. sent for specimen. kub for abdominal pain. surgical site is clean and dry. no bleeding noted, no discharge.
[2021-05-09 04:13] LABS: Add Urine Microscopic? YES; Appearance Urine Turbid (Clear); Bacteria Urine 4+ /hpf; Bilirubin Urine Negative (Negative); Blood Urine 2+ (Negative); Color Urine Yellow (Yellow); Glucose Urine UA Negative (Negative); Ketones Urine Negative (Negative); Leukocyte Esterase Ur 2+ LEU/UL (NEGATIVE); Mucus Urine Heavy /lpf; Nitrate Urine Positive (Negative); Protein Urine 2+ mg/dL (Negative); RBC Urine >75 /hpf (0-2); Specific Grav Ur 1.006 (1.001-1.035); Urobilinogen Urine Negative mg/dL (<2.0); WBC Clumps Urine Present /HPF; WBC Urine >75 /hpf (0-3)
--- NOTE | 2021-05-09 04:17 | PM.EVENT ---
Event Note Event Note Event Note: I was called to patient's room to assess her due to heart rate of 140 patient also had been having nausea vomiting abdominal distension and fever through the night. Patient was started on Zosyn and vancomycin cultures pending sepsis workup in progress and transfer to IMU.
[2021-05-09 04:56] LABS: Reflex Lactic Acid Yes or No Add Lactic
[2021-05-09 05:11] LABS: Hematocrit 40.2 % (37.0-47.0); Hemoglobin 12.8 g/dL (12.0-15.0); Mean Corpuscular HGB Conc 31.8 g/dl (32-36); Mean Corpuscular Hemoglobin 30.7 pg (26-34); Mean Corpuscular Volume 96.4 fl (80-100); Mean Platelet Volume 9.5 fl (7.4-10.4); Platelet Count Result 224 k/mm3 (150-375); Red Blood Count 4.17 M/mm3 (4.2-5.4); Red Cell Distribution Width 16.2 % (11.5-14.5); White Blood Count 9.6 K/mm3 (4.5-10.0)
[2021-05-09 05:21] LABS: Anion Gap 10 mmol/L (8-16); Blood Urea Nitrogen 8 mg/dL (7-17); Calcium 7.9 mg/dL (8.4-10.2); Carbon Dioxide 19 mmol/L (22-30); Chloride 105 mmol/L (98-107); Estimated CRCL calculation 36 ml/min; Estimated Glomerular Filt Rate 60; Glucose 133 mg/dL (65-110); Potassium 3.7 mmol/L (3.4-5.0); Sodium 134 mmol/L (137-145)
[2021-05-09 05:24] LABS: Lactic Acid 5.4 mmol/L (0.7-2.1)
[2021-05-09] MEDS: SODIUM CHLORIDE 0.9% IV 1,000 ML 999 ML IV CONT (05:58)
[2021-05-09] MEDS: SCOPOLAMINE 1.5 MG PATCH TRANSDERM (05:58)
[2021-05-09] MEDS: SODIUM CHLORIDE 0.9% IV 1,000 ML 75 ML IV CONT ×2 (06:57→22:28)
--- NOTE | 2021-05-09 07:21 | PCOTNOTE ---
Attempted OT evaluation, per RN hold therapy until afternoon and check back due to patients recent change in medical status and transfer to IMU. Will follow.
[2021-05-09] MEDS: POTASSIUM CHLORIDE 10 MEQ TABLET.ER PO (09:06)
[2021-05-09] MEDS: ENOXAPARIN 30 MG/0.3 ML SYRINGE SUB-Q ×2 (09:06→20:53)
[2021-05-09] MEDS: PSYLLIUM POWDER PACKET 1 PACKET PO ×2 (09:06→17:02)
[2021-05-09] MEDS: MINERAL OIL 30 ML UDC 15 ML PO ×2 (09:07→17:02)
[2021-05-09] MEDS: PANTOPRAZOLE 40 MG TABLET PO ×2 (09:21→20:53)
[2021-05-09] MEDS: HYDROcodone/acetaminophen (*CRX) 5-325 MG TABLET 1 TAB PO (10:13)
--- NOTE | 2021-05-09 12:25 | PM.IMPN ---
Progress Note: A&P Assessment and Plan (1) Acute GI bleeding: Code(s): K92.2 - Gastrointestinal hemorrhage, unspecified Status: Acute Assessment and Plan: Likely related to 3 days hematochezia per pt. On eliquis at home for AFib and prior DVT/PE. . 04/06 colonoscopy showing colon polyp and diverticulosis and 3rd degree hemorrhoids, which was presumed to be source of bleeding, and given BID steroid cream. S/P hemorrhoidectomy by surgery and esophageal dilation by GI on 05/08/2021. Monitor H/H. Pain management (2) Hypokalemia: Code(s): E87.6 - Hypokalemia Status: Acute Assessment and Plan: Supplemented. Monitor repeat K. (3) Polymyalgia rheumatica: Code(s): M35.3 - Polymyalgia rheumatica Status: Acute (4) Hyperthyroidism: Code(s): E05.90 - Thyrotoxicosis, unspecified without thyrotoxic crisis or storm Status: Chronic (5) GERD without esophagitis: Code(s): K21.9 - Gastro-esophageal reflux disease without esophagitis Status: Chronic Assessment and Plan: PPI PRN (6) Essential (primary) hypertension: Code(s): I10 - Essential (primary) hypertension Status: Chronic Assessment and Plan: Current BP 147/87. Continue lisinopril 20 mg PO daily Monitor BP. (7) Rheumatoid arthritis: Code(s): M06.9 - Rheumatoid arthritis, unspecified Status: Chronic (8) Dysphagia: Code(s): R13.10 - Dysphagia, unspecified Status: Chronic Assessment and Plan: s/p balloon dilation (9) COPD (chronic obstructive pulmonary disease): Qualifiers: COPD type: unspecified COPD Qualified Code(s): J44.9 - Chronic obstructive pulmonary disease, unspecified Code(s): J44.9 - Chronic obstructive pulmonary disease, unspecified Status: Chronic Assessment and Plan: pt has chronic respiratory failure on 1-2L nc related to COPD & MALCOLM, which is currently at symptomatic baseline. Continue NC and CPAP at night. (10) SIRS (systemic inflammatory response syndrome): Code(s): R65.10 - Systemic inflammatory response syndrome (SIRS) of non-infectious origin without acute organ dysfunction Status: Acute Assessment and Plan: Patient meets SIRS criteria with fever, tachycardia, tachypnea, and elevated lactate. she was appropriately started on zosyn. Follow up repeat lactate. Follow up blood and urine cultures Increase normal saline to 100 ccs per hour Currently hypotensive give 500ccs bolus. (11) Acute kidney injury: Code(s): N17.9 - Acute kidney failure, unspecified Status: Acute Assessment and Plan: Episode of VIDHYA during previous encounter. Creatinine has been stable during this admission; monitor I and Os, creatinine. Additional Plan 3 days hematochezia per pt. On eliquis at home for AFib and prior DVT/PE. Recent admission about a week ago for similar complaints. 04/06 colonoscopy showing colon polyp and diverticulosis and 3rd degree hemorrhoids, which was presumed to be source of bleeding, and given BID steroid cream. GI commenting that bleeding likely related to hemorrhoids, and keeping patient on low fiber diet. Surgery saw patient and willing to do hemorrhoidectomy early this week. For now, will trend hgb in am, hold Eliquis. Bowel rest & IV fluids. Will hold off on IV protonix for the moment as expect symptoms related to hemorrhoidal bleed. Continue Anusol suppositories per GI. Continue morphine & tylenol prn for pain. She has dysphagia, and is planned to have dilation tmoorrow with GI. NPO at midnight. Already holding AC. Of note, pt has chronic respiratory failure on 1-2L nc related to COPD & MALCOLM, which is currently at symptomatic baseline. Continue NC and CPAP at night. Subjective Date/time seen: 05/09/21 12:25 She was NPO for excision 2 complexes internal and external hemorrhoids, rubber band ligation internal hemorrhoid on 05/08/2021. Patient had nausea vomiting abdomina
--- NOTE | 2021-05-09 13:22 | PM.PNGS ---
Progress Note: A&P Assessment and Plan (1) Internal hemorrhoids with complication: Code(s): K64.8 - Other hemorrhoids Status: Chronic Assessment and Plan: wounds healing well postop day 1. Status post complex hemorrhoidectomy. Start Sitz baths focal active is a and she has p.r.n. analgesics. Continue to follow. (2) External hemorrhoids with complication: Code(s): K64.4 - Residual hemorrhoidal skin tags Status: Chronic Subjective Subjective Date/Time Seen: 05/09/21 13:22 Post Op day: 1 Patient reports: still having pain ( having rectal pain as well as neck pain, stiff neck), nausea, vomiting and afebrile Interval history: patient had emesis last night and some shortness of breath. She transferred IMU. There was concern regarding aspiration. Her blood blood pressure was a little low as well. She was given fluids and a Borja catheter was placed. The urine looked grossly infected having a chocolate type appearance. It has since changed to clear yellow. Cultures were done. She seems to be back to baseline status this afternoon. She does have some rectal incisional pain and also complains of a stiff sore neck. Exam GI: Rectal Exam: tenderness and other ( Some ecchymosis but wounds are dry and intact. Sutures in place. ) Other: No hematoma or skin breakdown Objective Data Vital Signs Vital Signs: Vital Signs - 24 hr 05/08/21 15:11 05/08/21 15:25 05/08/21 15:40 Temperature 36.6 C Pulse Rate 110 H 108 H 110 H Respiratory Rate 20 22 H 18 Blood Pressure 123/75 133/84 120/78 Pulse Oximetry 100 100 95 05/08/21 15:55 05/08/21 16:10 05/08/21 16:20 Temperature 36.3 C L Pulse Rate 112 H 110 H 115 H Respiratory Rate 18 16 16 Blood Pressure 117/80 104/85 133/80 Pulse Oximetry 92 93 94 05/08/21 16:35 05/08/21 17:05 05/08/21 18:05 Temperature 36.3 C L 36.3 C L 36.7 C Pulse Rate 114 H 113 H 120 H Respiratory Rate 16 12 16 Blood Pressure 122/74 111/83 147/87 H Pulse Oximetry 100 99 98 05/08/21 20:00 05/08/21 23:50 05/09/21 00:00 Temperature 37.3 C 37.7 C H 37.1 C Pulse Rate 126 H 130 H 134 H Respiratory Rate 18 20 18 Blood Pressure 132/86 141/85 H 122/65 Pulse Oximetry 96 95 95 05/09/21 00:28 05/09/21 00:52 05/09/21 00:53 Temperature 38.0 C H Pulse Rate 138 H 137 H Respiratory Rate 22 H 22 H Blood Pressure 112/86 111/77 Pulse Oximetry 94 95 90 05/09/21 00:54 05/09/21 01:19 05/09/21 01:27 Temperature Pulse Rate 140 H Respiratory Rate Blood Pressure Pulse Oximetry 94 93 95 05/09/21 01:44 05/09/21 01:49 05/09/21 01:52 Temperature 37.6 C Pulse Rate 142 H 142 H 144 H Respiratory Rate 22 H 22 H Blood Pressure 111/74 Pulse Oximetry 93 93 05/09/21 02:05 05/09/21 03:25 05/09/21 04:00 Temperature 36.9 C Pulse Rate 140 H 135 H Respiratory Rate 20 Blood Pressure 97/55 L Pulse Oximetry 92 94 05/09/21 06:00 05/09/21 08:00 05/09/21 12:00 Temperature 36.7 C 36.6 C Pulse Rate 122 H 115 H 106 H Respiratory Rate 16 20 Blood Pressure 102/81 95/60 L Pulse Oximetry 98 97 Intake/Output Intake/Output: Intake & Output 05/06/21 05/07/21 05/08/21 05/09/21 23:59 23:59 23:59 23:59 Intake Total 6876 892 8850 340 Output Total 75 Balance 1498 001 8950 265 Meds/Results Medications: Active Medications Generic Name Dose Route Start Last Admin Trade Name Freq PRN Reason Stop Dose Admin Acetaminophen 500 mg 05/08/21 16:14 Acetaminophen 500 Mg Tablet PO Q6H PRN Mild Pain (1-3) Hydrocodone Bitart/Acetaminophen 1 tab 05/08/21 16:14 05/09/21 10:13 Hydrocodone/Acetaminophen (*Crx) 5-325 Mg Tablet PO 1 tab Q4H PRN Administration Pain Rated 4-6 Hydrocodone Bitart/Acetaminophen 1 tab 05/08/21 16:14 05/08/21 21:29 Hydrocodone/Acetaminophen (*Crx) 7.5-325 Mg Tablet PO 1 tab Q4H PRN Administration Pain Rated 7-10 Atorvastatin Calcium 40 mg 05/08/21 18:00 05/08/21 17:37
--- NOTE | 2021-05-09 13:23 | PCOTNOTE ---
Attempted OT evaluation, per RN hold therapy for today and attempt in AM. Will follow.
--- NOTE | 2021-05-09 14:01 | WPDANESPN ---
Anes - Prog Note Post-Op Date/Time: 05/09/21 14:01 Cardiovascular status: normal Respiratory status: normal Airway patency: baseline Mental status: baseline Post-Op hydration status: normal Vital Signs: Last Vital Signs Temp 36.6 C 05/09/21 12:00 Pulse 106 H 05/09/21 12:00 Resp 20 05/09/21 12:00 BP 95/60 L 05/09/21 12:00 Pulse Ox 97 05/09/21 12:00 Pain Score (VAS): 0 I/O: Intake & Output 05/08/21 05/09/21 05/09/21 23:59 07:59 15:59 Intake Total 650 100 290 Output Total 75 Balance 650 25 290 Laboratory Tests 05/09/21 05:02 05/09/21 05:02 05/08/21 05/08/21 05/08/21 18:49 18:49 19:10 WBC 7.2 RBC 4.38 Hgb 13.1 Hct 42.0 MCV 95.9 MCH 29.9 D MCHC 31.2 L RDW 16.3 H Plt Count 259 D MPV 9.2 Immature Gran % (Auto) 0.3 Neut % (Auto) 61.7 Lymph % (Auto) 26.4 [place] % (Auto) 7.1 Eos % (Auto) 3.5 Baso % (Auto) 1.0 Lymph # (Auto) 1.91 [place] # (Auto) 0.5 Eos # (Auto) 0.3 Baso # (Auto) 0.1 Abs Immat Gran (auto) 0.02 Absolute Neuts (auto) 4.5 Absolute Nucleated RBC 0.0 Nucleated RBC % 0.0 Sodium 134 L Potassium Cancelled 4.2 Chloride 103 Carbon Dioxide 26 Anion Gap 5 L BUN 7 Creatinine 0.70 Estim Creat Clear Calc 45 Estimated GFR > 60 Glucose 139 H Lactic Acid Calcium 7.9 L Magnesium 1.6 Urine Color Urine Appearance Urine pH Ur Specific [place] Urine Protein Urine Glucose (UA) Urine Ketones Ur Blood (Man) Urine Nitrate Urine Bilirubin Urine Urobilinogen Ur Leukocyte Esterase Urine RBC Urine WBC Urine WBC Clumps Urine Bacteria Urine Mucus 05/08/21 05/08/21 05/08/21 19:10 23:46 23:46 WBC 8.2 RBC 4.53 Hgb 13.5 Hct 43.2 MCV 95.4 MCH 29.8 MCHC 31.3 L RDW 16.5 H Plt Count 236 MPV 10.6 H Immature Gran % (Auto) Neut % (Auto) Lymph % (Auto) [place] % (Auto) Eos % (Auto) Baso % (Auto) Lymph # (Auto) [place] # (Auto) Eos # (Auto) Baso # (Auto) Abs Immat Gran (auto) Absolute Neuts (auto) Absolute Nucleated RBC Nucleated RBC % Sodium 133 L Potassium 4.2 Chloride 103 Carbon Dioxide 23 Anion Gap 7 L BUN 7 Creatinine 0.70 Estim Creat Clear Calc 45 Estimated GFR > 60 Glucose 131 H Lactic Acid Calcium 8.2 L Magnesium Cancelled Urine Color Urine Appearance Urine pH Ur Specific [place] Urine Protein Urine Glucose (UA) Urine Ketones Ur Blood (Man) Urine Nitrate Urine Bilirubin Urine Urobilinogen Ur Leukocyte Esterase Urine RBC Urine WBC Urine WBC Clumps Urine Bacteria Urine Mucus 05/09/21 05/09/21 05/09/21 01:43 03:52 05:02 WBC 9.6 RBC 4.17 L Hgb 12.8 Hct 40.2 MCV 96.4 MCH 30.7 MCHC 31.8 L RDW 16.2 H Plt Count 224 MPV 9.5 Immature Gran % (Auto) Neut % (Auto) Lymph % (Auto) [place] % (Auto) Eos % (Auto) Baso % (Auto) Lymph # (Auto) [place] # (Auto) Eos # (Auto) Baso # (Auto) Abs Immat Gran (auto) Absolute Neuts (auto) Absolute Nucleated RBC Nucleated RBC % Sodium Potassium Chloride Carbon Dioxide Anion Gap BUN Creatinine Estim Creat Clear Calc Estimated GFR Glucose Lactic Acid 3.5 H Calcium Magnesium Urine Color Yellow Urine Appearance Turbid H Urine pH 5.0 Ur Specific [place] 1.006 Urine Protein 2+ H Urine Glucose (UA) Negative Urine Ketones Negative Ur Blood (Man) 2+ H Urine Nitrate Positive Urine Bilirubin Negative Urine Urobilinogen Negative Ur Leukocyte Esterase 2+ H Urine RBC >75 H Urine WBC >75 H Urine WBC Clumps Present H Urine Bacteria 4+ H Urine Mucus Heavy H 05/09/21 05/09/21 05:02 05:03 WBC RBC Hgb Hct MCV MCH MCHC
--- NOTE | 2021-05-09 15:35 | PCPTNOTE ---
PT on hold due to surgery and transfer to IMU. Will follow.
[2021-05-09] MEDS: ATORVASTATIN 40 MG TABLET PO (17:02)
--- NOTE | 2021-05-09 17:39 | PC.NURSE ---
On 05/09/21, the student, Daksha [facility]OE [facility], provided care and completed [employer] documentation on this patient. I have reviewed the student's documentation and agree with the findings.
[2021-05-09] MEDS: SODIUM CHLORIDE 0.9% IV 250 ML 500 ML IV CONT (18:16)
[2021-05-09 18:40] LABS: Lactic Acid Reflex 3.4 mmol/L (0.7-2.1)
[2021-05-09 21:29] LABS: Reflex Lactic Acid Yes or No Add Lactic
[2021-05-10] VITALS (16 sets, daily range): BP systolic 90–118; BP diastolic 42–68; PULSE 84–99; RESP 16–36; TEMP 36.2–36.7; O2SAT 93–99
[2021-05-10] MEDS: SODIUM CHLORIDE 0.9% IV 1,000 ML 999 ML IV CONT (00:25)
[2021-05-10 05:15] LABS: Hematocrit 30.2 % (37.0-47.0); Hemoglobin 9.8 g/dL (12.0-15.0); Mean Corpuscular HGB Conc 32.5 g/dl (32-36); Mean Corpuscular Hemoglobin 31.3 pg (26-34); Mean Corpuscular Volume 96.5 fl (80-100); Mean Platelet Volume 9.6 fl (7.4-10.4); Platelet Count Result 233 k/mm3 (150-375); Red Blood Count 3.13 M/mm3 (4.2-5.4); Red Cell Distribution Width 17.2 % (11.5-14.5); White Blood Count 12.8 K/mm3 (4.5-10.0)
[2021-05-10 05:26] LABS: Anion Gap 7 mmol/L (8-16); Blood Urea Nitrogen 10 mg/dL (7-17); Carbon Dioxide 21 mmol/L (22-30); Chloride 109 mmol/L (98-107); Estimated CRCL calculation 36 ml/min; Estimated Glomerular Filt Rate 60; Glucose 100 mg/dL (65-110); Sodium 137 mmol/L (137-145)
--- NOTE | 2021-05-10 07:14 | PM.IMPN ---
Progress Note: A&P Assessment and Plan (1) Acute GI bleeding: Code(s): K92.2 - Gastrointestinal hemorrhage, unspecified Status: Acute Assessment and Plan: Likely related to 3 days hematochezia per pt. She was on eliquis at home for AFib and prior DVT/PE. Eliquis has been appropriately on hold since admission. 04/06 colonoscopy showing colon polyp and diverticulosis and 3rd degree hemorrhoids, which were presumed to be source of bleeding, and given BID steroid cream. S/P Excision 2 complexes internal and external hemorrhoids, rubber band ligation internal hemorrhoid by surgery and esophageal dilation by GI on 05/08/2021. Pt had complex hemorrhoidectomy on 05/09/2021. Monitor H/H. Pain management. Hb has dropped from 12.8 to 9.8 over the last 48 hours. There is no source of overt bleeding. This is likely secondary to perioperative blood loss and there is an element of dilutional anemia related to the fluid boluses administered due to hypotension. Currently patient's BP meds are on hold. Lovenox also held today. (2) Hypokalemia: Code(s): E87.6 - Hypokalemia Status: Acute Assessment and Plan: Supplemented. Monitor repeat K. (3) Polymyalgia rheumatica: Code(s): M35.3 - Polymyalgia rheumatica Status: Acute (4) Hyperthyroidism: Code(s): E05.90 - Thyrotoxicosis, unspecified without thyrotoxic crisis or storm Status: Chronic (5) GERD without esophagitis: Code(s): K21.9 - Gastro-esophageal reflux disease without esophagitis Status: Chronic Assessment and Plan: PPI PRN (6) Essential (primary) hypertension: Code(s): I10 - Essential (primary) hypertension Status: Chronic Assessment and Plan: Current BP 90/63->107/62. Give normal saline 500ccs once Hold lisinopril 20 mg PO daily Monitor BP. (7) Rheumatoid arthritis: Code(s): M06.9 - Rheumatoid arthritis, unspecified Status: Chronic (8) Dysphagia: Code(s): R13.10 - Dysphagia, unspecified Status: Chronic Assessment and Plan: s/p balloon dilation (9) COPD (chronic obstructive pulmonary disease): Qualifiers: COPD type: unspecified COPD Qualified Code(s): J44.9 - Chronic obstructive pulmonary disease, unspecified Code(s): J44.9 - Chronic obstructive pulmonary disease, unspecified Status: Chronic Assessment and Plan: pt has chronic respiratory failure on 1-2L nc related to COPD & MALCOLM, which is currently at symptomatic baseline. Continue NC and CPAP at night. (10) SIRS (systemic inflammatory response syndrome): Code(s): R65.10 - Systemic inflammatory response syndrome (SIRS) of non-infectious origin without acute organ dysfunction Status: Acute Assessment and Plan: Patient met SIRS criteria with fever, tachycardia, tachypnea, and elevated lactate. due to hypotension lisinopril is on hold. she was appropriately started on zosyn. Repeat lactate has improved from 5.4. to 3. Repeat lactate in AM. Follow up blood and urine cultures LAst night 05/09/2021 she was hypotensive abd given 1L IV fluids by night hospitalist. Keep MAP>65 (11) Acute kidney injury: Code(s): N17.9 - Acute kidney failure, unspecified Status: Acute Assessment and Plan: Episode of VIDHYA during previous encounter. Creatinine has been stable during the current admission at 0.9; monitor I and Os, creatinine. Patient does not have access and we have cleared her for a piccline given her age and stable kidney function; she is not on a trajectory for renal dysfunction. Additional Plan Of note, pt has chronic respiratory failure on 1-2L nc related to COPD & MALCOLM, which is currently at symptomatic baseline. Continue NC and CPAP at night. Incentive spirometry encourage inhaler use. Time Spent With Patient Time with patient: 15 - 25 minutes Subjective Date/time seen: 05/10/21 07:14 S: PAtient is examined at the bedside. She looks very
[2021-05-10] MEDS: POTASSIUM CHLORIDE 20 MEQ PACKET (FOR LIQUID) 40 MEQ PO (10:38)
[2021-05-10] MEDS: ENOXAPARIN 30 MG/0.3 ML SYRINGE SUB-Q (10:38)
[2021-05-10] MEDS: PANTOPRAZOLE 40 MG TABLET PO ×2 (10:39→20:27)
--- NOTE | 2021-05-10 11:44 | P.CDI_ITS ---
CDI Query Clarification Request -SIRS of non-infectious origin has been documented - Patient meets SIRS criteria with fever, tachycardia, tachypnea, and elevated lactate. she was appropriately started on zosyn and Follow up blood and urine cultures was documented -One blood culture preliminary report growing gram negative bacilli Please clarify: * Non infectious cause of SIRS * If SIRS is due to infection- sepsis would be the appropriate diagnosis * Unable to determine cause of SIRS
--- NOTE | 2021-05-10 16:33 | WPDGIPROGNO ---
Progress Note: A&P Assessment and Plan (1) Sepsis: Code(s): A41.9 - Sepsis, unspecified organism Status: Acute Assessment and Plan: less than 2 days ago became septic and probably urinary source vs pneumonia but she is doing better with abx lactic acid improving I talked to and condition updated, nausea probably from recent sepsis egd with subtle ring dilated, no need to repeat another egd (2) UTI (urinary tract infection): Qualifiers: Hematuria presence: without hematuria Urinary tract infection type: site unspecified Qualified Code(s): N39.0 - Urinary tract infection, site not specified Code(s): N39.0 - Urinary tract infection, site not specified Status: Inactive Assessment and Plan: on abx (3) Esophageal ring: Code(s): K22.2 - Esophageal obstruction Status: Acute (4) External hemorrhoids with complication: Code(s): K64.4 - Residual hemorrhoidal skin tags Status: Chronic Assessment and Plan: treated with hemorrhoidectomy (5) Nausea: Code(s): R11.0 - Nausea Status: Inactive Subjective Date/time seen: 05/10/21 16:33 Interval history: called our office in order to get update on clinical condition. Patient 2 nights ago had n/v and found to be septic with elevated lactic acid, urine found to be cloudy and started on abx. Now she is doing better. Review of Systems Review of Systems: All systems reviewed & are unremarkable except as noted in HPI and below Exam Const: General: comfortable and no acute distress HENMT: General nose exam: Normal nares present Eyes: General: appearance normal, both eyes and all related structures Neck: Neck: no JVD Resp: Auscultation: rhonchi and diminished lung sounds Cardio: Rate: regular rate Rhythm: regular rhythm GI: Inspection: non-distended GI Palp: Yes Soft to palpation and No Guarding due to palpation present (GI) Auscultation: normal bowel sounds Urinary Catheter: Urinary Catheter: patent and draining Skin: General skin exam: normal color Neuro: Speech: normal speech Extrem: General: normal to inspection Psych: Mental Status: mental status grossly normal Objective Data Vital Signs Vital Signs: Vital Signs - 24 hr 05/09/21 16:41 05/09/21 17:00 05/09/21 18:00 Temperature 97.7 F Pulse Rate 94 99 Respiratory Rate 12 Blood Pressure 100/62 88/49 L Pulse Oximetry 92 05/09/21 20:00 05/09/21 22:00 05/09/21 23:53 Temperature 98.1 F 98.4 F Pulse Rate 93 95 95 Respiratory Rate 14 16 Blood Pressure 95/62 L 89/49 L Pulse Oximetry 98 92 05/10/21 00:46 05/10/21 01:30 05/10/21 02:00 Temperature Pulse Rate 85 96 Respiratory Rate Blood Pressure 93/42 L Pulse Oximetry 05/10/21 02:10 05/10/21 04:00 05/10/21 06:00 Temperature 97.5 F L Pulse Rate 99 92 Respiratory Rate 16 Blood Pressure 93/42 L 103/59 L Pulse Oximetry 93 05/10/21 08:00 05/10/21 12:00 05/10/21 15:56 Temperature 97.6 F 98.1 F 97.4 F L Pulse Rate 97 91 89 Respiratory Rate 20 32 H 28 H Blood Pressure 90/63 L 111/61 107/62 Pulse Oximetry 96 99 99 Intake/Output Intake/Output: Intake & Output 05/07/21 05/08/21 05/09/21 05/10/21 23:59 23:59 23:59 23:59 Intake Total 970 1150 1930 810 Output Total 825 450 Balance 970 1150 1105 360 Meds/Results Medications: Active Medications Generic Name Dose Route Start Last Admin Trade Name Freq PRN Reason Stop Dose Admin Acetaminophen 500 mg 05/08/21 16:14 Acetaminophen 500 Mg Tablet PO Q6H PRN Mild Pain (1-3) Hydrocodone Bitart/Acetaminophen 1 tab 05/08/21 16:14 05/09/21 10:13 Hydrocodone/Acetaminophen (*Crx) 5-325 Mg Tablet PO 1 tab Q4H PRN Administration Pain Rated 4-6 Hydrocodone Bitart/Acetaminophen 1 tab 05/08/21 16:14 05/08/21 21:29 Hydrocodone/Acetaminophen (*Crx) 7.5-325 Mg Tablet PO 1 tab Q4H PRN Administration Pain Rated 7-1
[2021-05-10] MEDS: ATORVASTATIN 40 MG TABLET PO (18:23)
[2021-05-11] VITALS (19 sets, daily range): BP systolic 106–131; BP diastolic 64–83; PULSE 86–107; RESP 16–24; TEMP 36.2–36.8; O2SAT 93–100; BMI 26.5
[2021-05-11 05:53] LABS: Hematocrit 30.8 % (37.0-47.0); Hemoglobin 9.8 g/dL (12.0-15.0); Mean Corpuscular HGB Conc 31.8 g/dl (32-36); Mean Corpuscular Hemoglobin 30.1 pg (26-34); Mean Corpuscular Volume 94.5 fl (80-100); Mean Platelet Volume 9.6 fl (7.4-10.4); Platelet Count Result 217 k/mm3 (150-375); Red Blood Count 3.26 M/mm3 (4.2-5.4); White Blood Count 8.7 K/mm3 (4.5-10.0)
[2021-05-11 06:12] LABS: Anion Gap 3 mmol/L (8-16); Blood Urea Nitrogen 10 mg/dL (7-17); Carbon Dioxide 22 mmol/L (22-30); Chloride 106 mmol/L (98-107); Estimated CRCL calculation 40 ml/min; Estimated Glomerular Filt Rate > 60; Glucose 73 mg/dL (65-110); Potassium 3.2 mmol/L (3.4-5.0); Sodium 131 mmol/L (137-145)
[2021-05-11] MEDS: PANTOPRAZOLE 40 MG TABLET PO ×2 (08:49→20:59)
[2021-05-11] MEDS: ONDANSETRON INJ 4 MG/2 ML VIAL IV PUSH (08:55)
--- NOTE | 2021-05-11 11:52 | WPDGIPROGNO ---
Progress Note: A&P Assessment and Plan (1) Sepsis: Code(s): A41.9 - Sepsis, unspecified organism Status: Acute Assessment and Plan: probably from urinary source vs pneumonia but she is doing better with abx, she is not acidotic anymore nausea probably from infection and other conditions, antiemetics prn egd with subtle ring dilated, no need to repeat another egd (2) UTI (urinary tract infection): Qualifiers: Hematuria presence: without hematuria Urinary tract infection type: site unspecified Qualified Code(s): N39.0 - Urinary tract infection, site not specified Code(s): N39.0 - Urinary tract infection, site not specified Status: Inactive Assessment and Plan: on abx (3) Esophageal ring: Code(s): K22.2 - Esophageal obstruction Status: Acute (4) External hemorrhoids with complication: Code(s): K64.4 - Residual hemorrhoidal skin tags Status: Chronic Assessment and Plan: treated with hemorrhoidectomy no more report of bleeding (5) Nausea: Code(s): R11.0 - Nausea Status: Inactive Subjective Date/time seen: 05/11/21 11:52 Interval history: still feeling weak and tired, poor appetite. Review of Systems Review of Systems: All systems reviewed & are unremarkable except as noted in HPI and below Exam Const: General: comfortable and no acute distress HENMT: General nose exam: Normal nares present Eyes: General: appearance normal, both eyes and all related structures Neck: Neck: no JVD Resp: Auscultation: rhonchi and diminished lung sounds Cardio: Rate: regular rate Rhythm: regular rhythm GI: Inspection: non-distended GI Palp: Yes Soft to palpation and No Guarding due to palpation present (GI) Auscultation: normal bowel sounds Urinary Catheter: Urinary Catheter: patent and draining Skin: General skin exam: normal color Neuro: Speech: normal speech Extrem: General: normal to inspection Psych: Mental Status: mental status grossly normal Objective Data Vital Signs Vital Signs: Vital Signs - 24 hr 05/10/21 12:00 05/10/21 12:30 05/10/21 14:00 Temperature 98.1 F Pulse Rate 91 91 94 Respiratory Rate 32 H Blood Pressure 111/61 Pulse Oximetry 96 05/10/21 15:56 05/10/21 16:00 05/10/21 18:00 Temperature 97.4 F L Pulse Rate 89 84 89 Respiratory Rate 28 H Blood Pressure 107/62 Pulse Oximetry 99 99 05/10/21 20:00 05/10/21 22:00 05/11/21 00:00 Temperature 97.2 F L 97.5 F L Pulse Rate 87 89 92 Respiratory Rate 36 H 20 Blood Pressure 118/68 110/64 Pulse Oximetry 97 98 05/11/21 02:00 05/11/21 04:00 05/11/21 06:00 Temperature 98.2 F Pulse Rate 93 86 89 Respiratory Rate 20 Blood Pressure 113/64 Pulse Oximetry 95 05/11/21 08:50 Temperature 97.6 F Pulse Rate 91 Respiratory Rate 18 Blood Pressure 108/64 Pulse Oximetry 97 Intake/Output Intake/Output: Intake & Output 05/08/21 05/09/21 05/10/21 05/11/21 23:59 23:59 23:59 23:59 Intake Total 1150 1930 1530 670 Output Total 825 750 300 Balance 1150 1105 780 370 Meds/Results Medications: Active Medications Generic Name Dose Route Start Last Admin Trade Name Freq PRN Reason Stop Dose Admin Acetaminophen 500 mg 05/08/21 16:14 Acetaminophen 500 Mg Tablet PO Q6H PRN Mild Pain (1-3) Hydrocodone Bitart/Acetaminophen 1 tab 05/08/21 16:14 05/09/21 10:13 Hydrocodone/Acetaminophen (*Crx) 5-325 Mg Tablet PO 1 tab Q4H PRN Administration Pain Rated 4-6 Hydrocodone Bitart/Acetaminophen 1 tab 05/08/21 16:14 05/08/21 21:29 Hydrocodone/Acetaminophen (*Crx) 7.5-325 Mg Tablet PO 1 tab Q4H PRN Administration Pain Rated 7-10 Atorvastatin Calcium 40 mg 05/08/21 18:00 05/10/21 18:23 Atorvastatin 40 Mg Tablet PO 40 mg QPM ILA Administration Piperacillin/Tazobactam/Dextrose 3.375 gm in 50 mls @ 100 mls/hr 05/09/21 01:25 05/11/21 08:44 Zosyn 3.375 Gm/D5w 50
--- NOTE | 2021-05-11 12:08 | PC.NURSE ---
PATIENT WAS SCHEDULED FOR EGD OUTPATIENT ON 05/07/2021. I HAD REQUESTED CLEARANCE FOR HOLDING BLOOD THINNER FROM HOSPICE VOLUNTEER COORDINATOR DR. PEREZ FOR OUT PATIENT PROCEDURE. ON Friday05/04/2021 I RECEIVED TELEPHONE COMMUNICATION WITH HIS OFFICE REGARDING THIS. HE WOULD NOT GIVE CLEARANCE PATIENT WAS IN NEED OF A PACEMAKER AND HAD NOT FOLLOWED BACK UP IN OFFICE. I CALLED PATIENT TO INFORM HER OF THIS AND TO CANCEL HER PROCEDURE WHEN THE PATIENT INFORMED ME SHE WAS ADMITTED TO THE HOSPITAL THE NIGHT BEFORE ON 05/03/2021. I CALLED DR. TELLEZ TO INFORM HIM OF WHAT THE HOSPICE VOLUNTEER COORDINATOR HAD SAID AND THAT I DID NOT HAVE ANY INFORMATION TO WHY THE PATIENT NEEDED A PACEMAKER. SEE OUT PT V#[phone]. I ALSO CALLED THE HOSPITALIST DR. DENNY AND INFORMED HIM OF THIS INFO. ON Friday05/07/2021 PT WAS KEPT ON SCHEDULE FOR EGD AN INPATIENT SO I REQUESTED INFORMATION FROM DR. SANTOS OFFICE FROM LAST OFFICE VISIT. THIS INFORMATION WAS RECEIVED AND GIVEN TO ANESTHESIA FOR PROCEDURE AND SUBSEQUENTLY PLACED ON INPATIENT RECORD.
--- NOTE | 2021-05-11 12:40 | PM.IMPN ---
Progress Note: A&P Additional Plan START OF DOCTOR DIGNA?S PROGRESS NOTE Subjective: The patient case that she feels slightly dyspneic and is exhibiting generalized weakness. Nursing staff has informed me that she has been exhibiting anorexia. She denies fever, rigors, nausea, vomiting, cough, wheeze, abdominal pain. I explained to the patient her current medical condition plan of care and advanced all the questions Objective: General: -Alert -No acute distress -No dyspnea -No tachypnea -frail-appearing Heart: -Regular rate -Regular rhythm -No murmurs -No gallops -No rubs Lungs: -No wheeze -No rhonchi -No rales -distant breath sounds bilaterally Abdomen: -Normal bowel sounds in all four quadrants -No rebound -No guarding -No tenderness Extremities: -2/4 pulse in all four extremities -No clubbing -No cyanosis -No edema Additional Details / Additional Findings / Exceptions / Miscellaneous: Pertinent Laboratory Results / Pertinent Radiology Results / Pertinent Diagnostic Results / Pertinent Vital Signs: Patient saturating 97% 2 L, hemoglobin 9.8, sodium 131, potassium 3.2 Assessment / Plan: Bright red blood per rectum. High-pressure Gastroenterology about the patient. I believe patient is status post hemorrhoidectomy with General surgery on May 08, 2021 however operative Sineff report appears to be pending. Will monitor hemoglobin level intermittently History of recurrent GI bleed Query pneumonia. Vancomycin 1 g IV daily Zosyn 3.375 g IV q.6 hours GERD. Protonix 40 mg p.o. q.12 hours Anemia. Monitor hemoglobin levels intermittently COPD, O2 dependent 3 L. Solu-Medrol 40 mg IV q.8 hours DuoNeb q.6 are Atrial fibrillation. Anticoagulation being held due to gastrointestinal bleed History of cerebral hemorrhage History of CVA. Lipitor 40 mg p.o. q.h.s.. Anti-platelet agents being held secondary to gastrointestinal bleed Hyperlipidemia. Lipitor 40 mg p.o. q.h.s. Hypertension Hypothyroidism Obstructive sleep apnea. CPAP/BiPAP: Okay to use home twice and/or pressure when sleeping the patient uses CPAP/BiPAP Osteoporosis Polymyalgia rheumatica History of DVT/PE. Anticoagulation be held secondary to gastrointestinal bleed. I will request that Interventional Radiology Radiology evaluate the patient for IVC filter placement Anorexia. Cyproheptadine 2 mg p.o. q.i.d. Rheumatoid arthritis Hyponatremia. Monitor sodium levels intermittently Hypokalemia. Will monitor potassium also intermittently supplements necessary Hypomagnesemia. Resolved Urinary tract infection. Urine culture positive for E coli. C Zosyn 3.375 g IV q.6 hours Diverticulosis Grade 1 diastolic dysfunction DVT prophylaxis. Bilateral Keith hose Disposition: Pending evaluation by Interventional Radiology for IVC filter placement, the patient appears medically stable for discharge. I will discuss with case management/social work on day of May 11, 2021 END OF DOCTOR DIGNA?S PROGRESS NOTE Subjective Date/time seen: 05/11/21 12:40 Objective Data Vital Signs Vital Signs: Vital Signs - 24 hr 05/10/21 14:00 05/10/21 15:56 05/10/21 16:00 Temperature 97.4 F L Pulse Rate 94 89 84 Respiratory Rate 28 H Blood Pressure 107/62 Pulse Oximetry 99 99 05/10/21 18:00 05/10/21 20:00 05/10/21 22:00 Temperature 97.2 F L Pulse Rate 89 87 89 Respiratory Rate 36 H Blood Pressure 118/68 Pulse Oximetry 97 05/11/21 00:00 05/11/21 02:00 05/11/21 04:00 Temperature 97.5 F L 98.2 F Pulse Rate 92 93 86 Respiratory Rate 20 20 Blood Pressure 110/64 113/64 Pulse Oximetry 98 95 05/11/21 06:00 05/11/21 08:50 05/11/21 12:12 Temperature 97.6 F 97.6 F Pulse Rate 89 91 86 Respiratory Rate 18 18 Blood Pressure 108/64 116/67 Pulse Oximetry 97 99 Intake/Output Intake/Output: Intake & Output 05/08/21 05/09/21 05/10/21
[2021-05-11] MEDS: IPRATROPIUM BR 0.02% INH SOLN 0.5 MG/2.5 ML VIAL INHALATION ×2 (15:01→21:35)
[2021-05-11] MEDS: ALBUTEROL SULFATE NEB 2.5 MG/0.5 ML INH INHALATION ×2 (15:01→21:35)
--- NOTE | 2021-05-11 16:31 | PM.PNGS ---
Progress Note: A&P Assessment and Plan (1) Internal hemorrhoids with complication: Code(s): K64.8 - Other hemorrhoids Status: Chronic Assessment and Plan: Rectal wounds continue to heal without difficulty. Patient having several stool so will decrease Metamucil and mineral oil to daily rather than b.i.d.. Can be discharged on Sitz baths and Metamucil mineral oil when okay with hospitalist providers. I would see her in 2 weeks. (2) External hemorrhoids with complication: Code(s): K64.4 - Residual hemorrhoidal skin tags Status: Chronic Subjective Subjective Date/Time Seen: 05/11/21 16:31 Post Op day: 3 Patient reports: still having pain (Incisional, rectal pain persists) and diarrhea (Having too many stools, loose) Exam GI: Rectal Exam: tenderness and other (Rectal wounds dry and healing, no hematoma or infection) Objective Data Vital Signs Vital Signs: Vital Signs - 24 hr 05/10/21 18:00 05/10/21 20:00 05/10/21 22:00 Temperature 36.2 C L Pulse Rate 89 87 89 Respiratory Rate 36 H Blood Pressure 118/68 Pulse Oximetry 97 05/11/21 00:00 05/11/21 02:00 05/11/21 04:00 Temperature 36.4 C L 36.8 C Pulse Rate 92 93 86 Respiratory Rate 20 20 Blood Pressure 110/64 113/64 Pulse Oximetry 98 95 05/11/21 06:00 05/11/21 08:00 05/11/21 08:50 Temperature 36.4 C Pulse Rate 89 91 91 Respiratory Rate 18 Blood Pressure 108/64 Pulse Oximetry 95 97 05/11/21 10:00 05/11/21 12:00 05/11/21 12:12 Temperature 36.4 C Pulse Rate 88 86 86 Respiratory Rate 18 Blood Pressure 116/67 Pulse Oximetry 97 99 05/11/21 14:00 05/11/21 15:01 05/11/21 15:09 Temperature Pulse Rate 90 91 96 Respiratory Rate 18 18 Blood Pressure Pulse Oximetry 05/11/21 16:00 Temperature Pulse Rate Respiratory Rate Blood Pressure Pulse Oximetry 96 Intake/Output Intake/Output: Intake & Output 05/08/21 05/09/21 05/10/21 05/11/21 23:59 23:59 23:59 23:59 Intake Total 1150 1930 1530 790 Output Total 825 750 650 Balance 1150 1105 780 140 Meds/Results Medications: Active Medications Generic Name Dose Route Start Last Admin Trade Name Freq PRN Reason Stop Dose Admin Acetaminophen 500 mg 05/08/21 16:14 Acetaminophen 500 Mg Tablet PO Q6H PRN Mild Pain (1-3) Hydrocodone Bitart/Acetaminophen 1 tab 05/08/21 16:14 05/09/21 10:13 Hydrocodone/Acetaminophen (*Crx) 5-325 Mg Tablet PO 1 tab Q4H PRN Administration Pain Rated 4-6 Hydrocodone Bitart/Acetaminophen 1 tab 05/08/21 16:14 05/08/21 21:29 Hydrocodone/Acetaminophen (*Crx) 7.5-325 Mg Tablet PO 1 tab Q4H PRN Administration Pain Rated 7-10 Albuterol 2.5 mg 05/11/21 14:00 05/11/21 15:01 Albuterol Sulfate Neb 2.5 Mg/0.5 Ml Inh INHALATION 2.5 mg Q6HRT ILA Administration Atorvastatin Calcium 40 mg 05/08/21 18:00 05/10/21 18:23 Atorvastatin 40 Mg Tablet PO 40 mg QPM ILA Administration Cyproheptadine HCl 2 mg 05/11/21 12:40 Cyproheptadine Hcl 2 Mg Tablet PO Q6HR ILA Piperacillin/Tazobactam/Dextrose 3.375 gm in 50 mls @ 100 mls/hr 05/09/21 01:25 05/11/21 12:17 Zosyn 3.375 Gm/D5w 50ml Pm IVPB 100 mls/hr Q6HR ILA Administration Vancomycin HCl 1,000 mg in 250 mls @ 250 mls/hr 05/10/21 00:00 05/11/21 08:49 Vancomycin 1,000 Mg/D5w 250 Ml IVPB Infused Q24H ILA Infusion Ipratropium [place] 0.5 mg 05/11/21 14:00 05/11/21 15:01 Ipratropium Br 0.02% Inh Soln 0.5 Mg/2.5 Ml Vial INHALATION 0.5 mg Q6HRT ILA Administration Methylprednisolone Sodium Succinate 40 mg 05/11/21 12:40 Methylprednisolone Sod Succ 40 Mg Vial IV PUSH Q8HR ILA Miconazole Nitrate 1 applic 05/08/21 21:00 05/11/21 08:49 Miconazole 2% Antifungal Ointment 56 Gm TOPICAL 1 applic Q12HR ILA Administration Mineral Oil 15 ml 05/12/21 09:00 Mineral Oil 30 Ml Udc PO DAILY [facility] Morphine Sulfate 1 mg 05/08/21 16:14
[2021-05-11] MEDS: methylPREDNISolone SOD SUCC 40 MG VIAL IV PUSH ×2 (18:20→20:59)
[2021-05-11] MEDS: CYPROHEPTADINE HCL 2 MG TABLET PO ×2 (18:21→23:24)
[2021-05-11] MEDS: ATORVASTATIN 40 MG TABLET PO (18:21)
[2021-05-11 20:47] LABS: Alkaline Phosphatase 202 U/L (37-153); Macrohepatic Isoenzymes 0 % (<=0)
[2021-05-12] VITALS (21 sets, daily range): BP systolic 112–135; BP diastolic 67–87; PULSE 74–98; RESP 16–21; TEMP 36–36.6; O2SAT 91–98
[2021-05-12 00:53] LABS: Vancomycin Trough 12.2 ug/mL (10.0-20.0)
[2021-05-12] MEDS: IPRATROPIUM BR 0.02% INH SOLN 0.5 MG/2.5 ML VIAL INHALATION ×3 (01:33→20:30)
[2021-05-12] MEDS: ALBUTEROL SULFATE NEB 2.5 MG/0.5 ML INH INHALATION ×3 (01:33→20:30)
[2021-05-12] MEDS: CYPROHEPTADINE HCL 2 MG TABLET PO ×4 (05:37→23:58)
[2021-05-12] MEDS: methylPREDNISolone SOD SUCC 40 MG VIAL IV PUSH ×3 (05:38→20:08)
[2021-05-12 06:55] LABS: Hematocrit 34.4 % (37.0-47.0); Hemoglobin 10.8 g/dL (12.0-15.0); Mean Corpuscular HGB Conc 31.4 g/dl (32-36); Mean Corpuscular Hemoglobin 29.7 pg (26-34); Mean Corpuscular Volume 94.5 fl (80-100); Mean Platelet Volume 10.1 fl (7.4-10.4); Platelet Count Result 191 k/mm3 (150-375); Red Blood Count 3.64 M/mm3 (4.2-5.4); Red Cell Distribution Width 16.1 % (11.5-14.5); White Blood Count 6.3 K/mm3 (4.5-10.0)
[2021-05-12 07:05] LABS: Anion Gap 8 mmol/L (8-16); Blood Urea Nitrogen 6 mg/dL (7-17); Calcium 7.2 mg/dL (8.4-10.2); Carbon Dioxide 19 mmol/L (22-30); Chloride 108 mmol/L (98-107); Estimated CRCL calculation 45 ml/min; Estimated Glomerular Filt Rate > 60; Glucose 173 mg/dL (65-110); Potassium 3.8 mmol/L (3.4-5.0); Sodium 135 mmol/L (137-145)
--- NOTE | 2021-05-12 09:10 | PM.IMPN ---
Progress Note: A&P Additional Plan START OF DOCTOR DIGNA?S PROGRESS NOTE Subjective: The patient indicates at the present moment she is feeling nauseated. She denies any other symptoms post her the present time overnight. She denies fever, rigors, vomiting, cough, wheeze, abdominal pain, chest pain, or dyspnea beyond her baseline. I have explained to the patient her current medical condition and plan care and answered all questions Objective: General: -Alert -No acute distress -No dyspnea -No tachypnea -frail-appearing Heart: -Regular rate -Regular rhythm -No murmurs -No gallops -No rubs Lungs: -No wheeze -No rhonchi -No rales -distant breath sounds bilaterally Abdomen: -Normal bowel sounds in all four quadrants -No rebound -No guarding -No tenderness Extremities: -2/4 pulse in all four extremities -No clubbing -No cyanosis -1+ to 2+ bipedal pitting Additional Details / Additional Findings / Exceptions / Miscellaneous: Pertinent Laboratory Results / Pertinent Radiology Results / Pertinent Diagnostic Results / Pertinent Vital Signs: Vital signs stable. Hemoglobin 10.8 Assessment / Plan: Bright red blood per rectum. High-pressure Gastroenterology about the patient. I believe patient is status post hemorrhoidectomy with General surgery on May 08, 2021 however operative Sineff report appears to be pending. Will monitor hemoglobin level intermittently History of recurrent GI bleed Query pneumonia. Vancomycin 1 g IV daily Zosyn 3.375 g IV q.6 hours GERD. Protonix 40 mg p.o. q.12 hours Anemia. Monitor hemoglobin levels intermittently COPD, O2 dependent 3 L. Solu-Medrol 40 mg IV q.8 hours DuoNeb q.6 are Atrial fibrillation. Anticoagulation being held due to gastrointestinal bleed History of cerebral hemorrhage History of CVA. Lipitor 40 mg p.o. q.h.s.. Anti-platelet agents being held secondary to gastrointestinal bleed Hyperlipidemia. Lipitor 40 mg p.o. q.h.s. Hypertension Hypothyroidism Obstructive sleep apnea. CPAP/BiPAP: Okay to use home twice and/or pressure when sleeping the patient uses CPAP/BiPAP Osteoporosis Polymyalgia rheumatica History of DVT/PE. Anticoagulation be held secondary to gastrointestinal bleed. I will request that Interventional Radiology Radiology evaluate the patient for IVC filter placement Anorexia. Cyproheptadine 2 mg p.o. q.i.d. Rheumatoid arthritis Hyponatremia. Monitor sodium levels intermittently Hypokalemia. Will monitor potassium also intermittently supplements necessary Hypomagnesemia. Resolved Urinary tract infection. Urine culture positive for E coli. C Zosyn 3.375 g IV q.6 hours Diverticulosis Grade 1 diastolic dysfunction DVT prophylaxis. Bilateral Keith hose Disposition: I will attempt to transfer the patient for IVC filter placement prior to discharge. I will discuss with case management/social work to explore hospice may be facilitated END OF DOCTOR DIGNA?S PROGRESS NOTE Subjective Date/time seen: 05/12/21 09:10 Objective Data Vital Signs Vital Signs: Vital Signs - 24 hr 05/11/21 10:00 05/11/21 12:00 05/11/21 12:12 Temperature 97.6 F Pulse Rate 88 86 86 Respiratory Rate 18 Blood Pressure 116/67 Pulse Oximetry 97 99 05/11/21 14:00 05/11/21 15:01 05/11/21 15:09 Temperature Pulse Rate 90 91 96 Respiratory Rate 18 18 Blood Pressure Pulse Oximetry 05/11/21 16:00 05/11/21 18:00 05/11/21 20:00 Temperature 97.3 F L 97.7 F Pulse Rate 96 91 93 Respiratory Rate 24 H 16 Blood Pressure 119/83 131/73 Pulse Oximetry 99 96 05/11/21 21:30 05/11/21 21:40 05/11/21 23:34 Temperature 97.1 F L Pulse Rate 91 96 97 Respiratory Rate 22 H 18 16 Blood Pressure 106/65 Pulse Oximetry 93 05/11/21 23:58 05/12/21 00:00 05/12/21 01:35 Temperature Pulse Rate 96 90 Respiratory Rate 18 Blood Pressure Pulse Oximetry 96 10
[2021-05-12] MEDS: PANTOPRAZOLE 40 MG TABLET PO ×2 (10:52→20:07)
[2021-05-12] MEDS: MINERAL OIL 30 ML UDC 15 ML PO (10:52)
[2021-05-12] MEDS: PSYLLIUM POWDER PACKET 1 PACKET PO (10:53)
[2021-05-12 17:26] LABS: Basophils Percent Auto 0.2 % (0.2-1.2); Hematocrit 34.3 % (37.0-47.0); Hemoglobin 10.9 g/dL (12.0-15.0); Immature Granulocyte Absolute 0.03 K/mm3 (0.00-0.031); Immature Granulocyte Percent A 0.5 % (0-0.5); Lymphocytes Absolute Auto 0.68 K/mm3 (0.9-3.2); Lymphocytes Percent Auto 10.6 % (18.3-44.2); Mean Corpuscular HGB Conc 31.8 g/dl (32-36); Mean Corpuscular Hemoglobin 29.4 pg (26-34); Mean Corpuscular Volume 92.5 fl (80-100); Mean Platelet Volume 10.1 fl (7.4-10.4); Monocytes Absolute Auto 0.2 K/mm3 (0.1-0.6); Monocytes Percent Auto 2.6 % (2.6-8.5); Neutrophils Absolute Auto 5.6 K/mm3 (1.3-6.7); Neutrophils Percent Auto 86.1 % (45.5-73.1); Platelet Count Result 200 k/mm3 (150-375); Red Blood Count 3.71 M/mm3 (4.2-5.4); Red Cell Distribution Width 16.1 % (11.5-14.5); White Blood Count 6.4 K/mm3 (4.5-10.0)
[2021-05-12 17:32] LABS: Anion Gap 8 mmol/L (8-16); Blood Urea Nitrogen 7 mg/dL (7-17); Calcium 7.7 mg/dL (8.4-10.2); Carbon Dioxide 24 mmol/L (22-30); Chloride 107 mmol/L (98-107); Estimated CRCL calculation 45 ml/min; Estimated Glomerular Filt Rate > 60; Glucose 136 mg/dL (65-110); Potassium 3.4 mmol/L (3.4-5.0); Sodium 139 mmol/L (137-145)
[2021-05-12] MEDS: ATORVASTATIN 40 MG TABLET PO (18:06)
[2021-05-13] VITALS (22 sets, daily range): BP systolic 105–160; BP diastolic 75–91; PULSE 66–109; RESP 16–20; TEMP 35.8–36.6; O2SAT 92–99
[2021-05-13] MEDS: IPRATROPIUM BR 0.02% INH SOLN 0.5 MG/2.5 ML VIAL INHALATION ×3 (02:13→19:24)
[2021-05-13] MEDS: ALBUTEROL SULFATE NEB 2.5 MG/0.5 ML INH INHALATION ×3 (02:13→19:24)
[2021-05-13] MEDS: CYPROHEPTADINE HCL 2 MG TABLET PO ×3 (05:43→17:52)
[2021-05-13] MEDS: methylPREDNISolone SOD SUCC 40 MG VIAL IV PUSH ×3 (05:43→22:39)
[2021-05-13 06:42] LABS: Hematocrit 38.4 % (37.0-47.0); Hemoglobin 11.3 g/dL (12.0-15.0); Mean Corpuscular HGB Conc 29.4 g/dl (32-36); Mean Corpuscular Hemoglobin 29.7 pg (26-34); Mean Corpuscular Volume 101.1 fl (80-100); Mean Platelet Volume 10.7 fl (7.4-10.4); Platelet Count Result 169 k/mm3 (150-375); Red Cell Distribution Width 16.3 % (11.5-14.5); White Blood Count 7.3 K/mm3 (4.5-10.0)
--- NOTE | 2021-05-13 08:20 | PCOTNOTE ---
Attempted to see patient this AM for skilled OT session. Patient awake and lying in bed upon entry. Patient presents with increased confusion this morning, not making sense in conversation, and talking to herself. Patient refused participation in OT session at this time stating, No, I'm not doing that here. He can just give you the money and we'll call it good. Reported increased confusion to RN. Will attempt to see patient for a second attempt. Will continue per POC.
--- NOTE | 2021-05-13 09:57 | PM.IMPN ---
Progress Note: A&P Additional Plan START OF DOCTOR DIGNA?S PROGRESS NOTE Subjective: The patient sources no complaints at this time. Overnight Shyken fever, rigors, nausea, vomiting, cough, wheeze, abdominal pain, chest pain, dyspnea, or any other constitutional complaints. I have explained to the patient her current medical condition and plan of care and answered all her questions Objective: General: -Alert -No acute distress -No dyspnea -No tachypnea -frail-appearing Heart: -Regular rate -Regular rhythm -No murmurs -No gallops -No rubs Lungs: -No wheeze -No rhonchi -No rales -distant breath sounds bilaterally Abdomen: -Normal bowel sounds in all four quadrants -No rebound -No guarding -No tenderness Extremities: -2/4 pulse in all four extremities -No clubbing -No cyanosis -1+ to 2+ bipedal pitting Additional Details / Additional Findings / Exceptions / Miscellaneous: Pertinent Laboratory Results / Pertinent Radiology Results / Pertinent Diagnostic Results / Pertinent Vital Signs: Blood pressure 155/91 however is labile, temperature 96.4?, hemoglobin 0.3, MCV 101 point Assessment / Plan: Bright red blood per rectum. High-pressure Gastroenterology about the patient. I believe patient is status post hemorrhoidectomy with General surgery on May 08, 2021 however operative Sineff report appears to be pending. Will monitor hemoglobin level intermittently History of recurrent GI bleed Query pneumonia. Vancomycin 1 g IV daily Zosyn 3.375 g IV q.6 hours GERD. Protonix 40 mg p.o. q.12 hours Anemia. Monitor hemoglobin levels intermittently COPD, O2 dependent 3 L. Solu-Medrol 40 mg IV q.8 hours DuoNeb q.6 are Atrial fibrillation. Anticoagulation being held due to gastrointestinal bleed History of cerebral hemorrhage History of CVA. Lipitor 40 mg p.o. q.h.s.. Anti-platelet agents being held secondary to gastrointestinal bleed Hyperlipidemia. Lipitor 40 mg p.o. q.h.s. Hypertension Hypothyroidism Obstructive sleep apnea. CPAP/BiPAP: Okay to use home twice and/or pressure when sleeping the patient uses CPAP/BiPAP Osteoporosis Polymyalgia rheumatica History of DVT/PE. Anticoagulation be held secondary to gastrointestinal bleed. I will request that Interventional Radiology Radiology evaluate the patient for IVC filter placement Anorexia. Cyproheptadine 2 mg p.o. q.i.d. Rheumatoid arthritis Hyponatremia. Monitor sodium levels intermittently Hypokalemia. Will monitor potassium also intermittently supplements necessary Hypomagnesemia. Resolved Urinary tract infection. Urine culture positive for E coli. C Zosyn 3.375 g IV q.6 hours Diverticulosis Grade 1 diastolic dysfunction DVT prophylaxis. Bilateral Keith hose Disposition: Patient is medically stable for discharge. I will discuss with case management/social work END OF DOCTOR DIGNA?S PROGRESS NOTE Subjective Date/time seen: 05/13/21 09:57 Objective Data Vital Signs Vital Signs: Vital Signs - 24 hr 05/12/21 10:00 05/12/21 10:08 05/12/21 10:19 Temperature Pulse Rate 84 74 81 Respiratory Rate 18 18 Blood Pressure Pulse Oximetry 94 94 05/12/21 12:00 05/12/21 13:17 05/12/21 14:00 Temperature 96.8 F L Pulse Rate 79 90 93 Respiratory Rate 18 18 Blood Pressure 128/81 Pulse Oximetry 94 96 05/12/21 15:50 05/12/21 16:00 05/12/21 16:22 Temperature 97.9 F Pulse Rate 79 94 91 Respiratory Rate 18 21 H Blood Pressure 135/84 Pulse Oximetry 94 94 05/12/21 18:00 05/12/21 20:00 05/12/21 20:30 Temperature 97.1 F L Pulse Rate 93 98 96 Respiratory Rate 20 16 Blood Pressure 134/83 Pulse Oximetry 95 96 05/12/21 20:40 05/12/21 23:56 05/13/21 00:00 Temperature 97.3 F L Pulse Rate 95 97 98 Respiratory Rate 16 16 Blood Pressure 132/87 Pulse Oximetry 96 98 95 05/13/21 02:10 05/13/21 02:19 05/13/21 03:47 Temperature P
[2021-05-13] MEDS: MINERAL OIL 30 ML UDC 15 ML PO (10:27)
[2021-05-13] MEDS: PANTOPRAZOLE 40 MG TABLET PO ×2 (10:28→20:16)
[2021-05-13] MEDS: PSYLLIUM POWDER PACKET 1 PACKET PO (10:28)
[2021-05-13 12:10] LABS: Anion Gap 8 mmol/L (8-16); Blood Urea Nitrogen 9 mg/dL (7-17); Carbon Dioxide 22 mmol/L (22-30); Chloride 109 mmol/L (98-107); Estimated CRCL calculation 45 ml/min; Estimated Glomerular Filt Rate > 60; Glucose 116 mg/dL (65-110); Potassium 3.8 mmol/L (3.4-5.0); Sodium 139 mmol/L (137-145)
[2021-05-13] MEDS: ATORVASTATIN 40 MG TABLET PO (17:53)
[2021-05-14] VITALS (22 sets, daily range): BP systolic 132–171; BP diastolic 84–107; PULSE 82–123; RESP 16–24; TEMP 36–37; O2SAT 94–100
[2021-05-14] MEDS: CYPROHEPTADINE HCL 2 MG TABLET PO ×3 (01:19→23:17)
[2021-05-14] MEDS: IPRATROPIUM BR 0.02% INH SOLN 0.5 MG/2.5 ML VIAL INHALATION ×4 (02:04→20:13)
[2021-05-14] MEDS: ALBUTEROL SULFATE NEB 2.5 MG/0.5 ML INH INHALATION ×4 (02:04→20:13)
[2021-05-14] MEDS: HYDROcodone/acetaminophen (*CRX) 7.5-325 MG TABLET 1 TAB PO (02:38)
[2021-05-14 05:00] LABS: Hematocrit 35.1 % (37.0-47.0); Hemoglobin 11.3 g/dL (12.0-15.0); Mean Corpuscular HGB Conc 32.2 g/dl (32-36); Mean Corpuscular Hemoglobin 29.8 pg (26-34); Mean Corpuscular Volume 92.6 fl (80-100); Mean Platelet Volume 10.1 fl (7.4-10.4); Platelet Count Result 227 k/mm3 (150-375); Red Blood Count 3.79 M/mm3 (4.2-5.4); Red Cell Distribution Width 16.3 % (11.5-14.5); White Blood Count 7.5 K/mm3 (4.5-10.0)
[2021-05-14 05:16] LABS: Anion Gap 12 mmol/L (8-16); Blood Urea Nitrogen 11 mg/dL (7-17); Carbon Dioxide 18 mmol/L (22-30); Chloride 107 mmol/L (98-107); Estimated CRCL calculation 45 ml/min; Estimated Glomerular Filt Rate > 60; Glucose 141 mg/dL (65-110); Potassium 3.5 mmol/L (3.4-5.0); Sodium 137 mmol/L (137-145)
[2021-05-14] MEDS: methylPREDNISolone SOD SUCC 40 MG VIAL IV PUSH ×3 (06:50→21:47)
--- NOTE | 2021-05-14 08:00 | PC.NURSE ---
Patient refusing to talk with staff. Only shaking head for yes or no questions. At times patient staring straight ahead and not acknowledging that staff is present at bedside. Dr. Up made aware.
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
[2021-05-14] MEDS: hydrALAZINE HCL 20 MG/ML VIAL 10 MG IV PUSH (09:58)
--- NOTE | 2021-05-14 10:00 | PC.NURSE ---
Patient refusing to take oral medications. Stated, you're the devil. Attempted to reorient patient. Patient not acknowledging that RN at bedside.
[2021-05-14 10:43] LABS: Ammonia < 9 umol/L (9-30)
--- NOTE | 2021-05-14 11:30 | PCDIET ---
Nutrition Follow-Up Complete: Nutrition Diagnosis: Suboptimal oral intake related to poor appetite as evidenced by calorie count. Nutrition Goal: Patient to consume 50% of meals/supplements or greater. Goal in progress. Patient sipping on Ensure Clear during visit and states she prefers the apple flavor. Answered all questions appropriately for me. Does not think she has received Frozen Nutritional Treat which is confirmed by calorie count receipts. Recommend sending Ensure Clear TID with all meals since patient does seem to be accepting it. Clarified order with dietary department. Appeared to have only eaten a few bites of breakfast. Last recorded weight is 68 kg. Recommend obtaining new weight. Bowel Motility: Last documented BM on 05/11/21 x 1. Labs Reviewed: RBC (3.79), Hgb (11.3), Hct (35.1), Glu (141), Ca (8.0) Meds Noted: Brimley, Periactin, Atrovent, Metamucil, Albuterol, Solu Medrol, Protonix, Zosyn, Vancomycin Additional notes: Skin tears to right medial thigh and left arm. Rectum with incision post-hemorrhoidectomy. Calorie count results below: 05/10/21: 140kcal and 3g protein (between 2 meal tickets saved) 05/11/21: 265kcal and 6g protein (between 2 meal tickets saved) 05/12/21: 335kcal and 12g protein (all 3 tickets saved, but patient only ate at one meal and refused both of the other trays) 05/13/21: 170kcal and 8g protein at breakfast Ultimately, patient not meeting estimated needs. Recommend Ensure Clear (240kcal, 8g protein) TID with meals. If medically appropriate, would consider appetite stimulant. If no improvement over the next few days may need to discuss option of supplemental nutrition support with patient/family. Nutrition Monitoring and Evaluation: Follow up in 3 days.
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
[2021-05-14] MEDS: PANTOPRAZOLE 40 MG TABLET PO (20:41)
[2021-05-14 21:17] LABS: Add Urine Microscopic? YES; Appearance Urine Clear (Clear); Bacteria Urine Trace /hpf; Bilirubin Urine Negative (Negative); Blood Urine 1+ (Negative); Calcium Oxalate Crystals Urine Present /hpf; Color Urine Yellow (Yellow); Glucose Urine UA Negative (Negative); Ketones Urine Trace mg/dL (Negative); Leukocyte Esterase Ur Negative LEU/UL (NEGATIVE); Mucus Urine Rare /lpf; Nitrate Urine Negative (Negative); Protein Urine 1+ mg/dL (Negative); Squamous Epithelial Cell Urine Rare /hpf (Few); Urobilinogen Urine Negative mg/dL (<2.0)
[2021-05-14 21:37] LABS: Specific Grav Ur 1.031 (1.001-1.035)
[2021-05-15] VITALS (20 sets, daily range): BP systolic 115–149; BP diastolic 56–86; PULSE 69–95; RESP 16–21; TEMP 36.1–36.6; O2SAT 95–99
[2021-05-15] MEDS: ALBUTEROL SULFATE NEB 2.5 MG/0.5 ML INH INHALATION ×3 (02:16→14:15)
[2021-05-15] MEDS: IPRATROPIUM BR 0.02% INH SOLN 0.5 MG/2.5 ML VIAL INHALATION ×3 (02:16→14:15)
[2021-05-15] MEDS: methylPREDNISolone SOD SUCC 40 MG VIAL IV PUSH (05:09)
[2021-05-15] MEDS: CYPROHEPTADINE HCL 2 MG TABLET PO ×3 (05:10→17:42)
[2021-05-15] MEDS: PSYLLIUM POWDER PACKET 1 PACKET PO (08:56)
[2021-05-15] MEDS: MINERAL OIL 30 ML UDC 15 ML PO (08:58)
[2021-05-15] MEDS: PANTOPRAZOLE 40 MG TABLET PO ×2 (08:58→20:17)
--- NOTE | 2021-05-15 10:30 | PCPTNOTE ---
Attempted to see patient for PT at this time, however patient refused due to pain in IV site. RN aware.
--- NOTE | 2021-05-15 10:32 | WPDCDIQUERY2 ---
CDI Query Clarification Request -Sepsis documented by Dr Reyes
--- NOTE | 2021-05-15 10:41 | PM.IMPN ---
Progress Note: A&P Additional Plan START OF DOCTOR DIGNA?S PROGRESS NOTE Subjective: The patient versus no complaints at the time. Overnight she denies fever, rigors, nausea, vomiting, cough, wheeze, abdominal pain, chest pain, dyspnea, or any other constitutional complaints. On this day she is alert and oriented x3. I have explained to the patient her current medical condition plan of care and I have answered all the questions Objective: General: -Alert -No acute distress -No dyspnea -No tachypnea -frail-appearing Heart: -Regular rate -Regular rhythm -No murmurs -No gallops -No rubs Lungs: -No wheeze -No rhonchi -trace bibasilar rales -distant breath sounds bilaterally Abdomen: -Normal bowel sounds in all four quadrants -No rebound -No guarding -No tenderness Extremities: -2/4 pulse in all four extremities -No clubbing -No cyanosis -1+ to 2+ bipedal pitting Additional Details / Additional Findings / Exceptions / Miscellaneous: Pertinent Laboratory Results / Pertinent Radiology Results / Pertinent Diagnostic Results / Pertinent Vital Signs: Respirations 21, blood pressure 149/86 Assessment / Plan: Bright red blood per rectum. High-pressure Gastroenterology about the patient. I believe patient is status post hemorrhoidectomy with General surgery on May 08, 2021 however operative Sineff report appears to be pending. Will monitor hemoglobin level intermittently Encephalopathy on May 14, 2021. Repeat studies unremarkable/demonstrate no changes. This may be steroid induced encephalopathy History of recurrent GI bleed Query pneumonia. Vancomycin 1 g IV daily Zosyn 3.375 g IV q.6 hours GERD. Protonix 40 mg p.o. q.12 hours Anemia. Monitor hemoglobin levels intermittently COPD, O2 dependent 3 L. Atrial fibrillation. Anticoagulation being held due to gastrointestinal bleed History of cerebral hemorrhage History of CVA. Lipitor 40 mg p.o. q.h.s.. Anti-platelet agents being held secondary to gastrointestinal bleed Hyperlipidemia. Lipitor 40 mg p.o. q.h.s. Hypertension. Hydralazine 25 mg p.o. t.i.d. Hypothyroidism Obstructive sleep apnea. CPAP/BiPAP: Okay to use home twice and/or pressure when sleeping the patient uses CPAP/BiPAP Osteoporosis Polymyalgia rheumatica History of DVT/PE. Anticoagulation be held secondary to gastrointestinal bleed. I will request that Interventional Radiology Radiology evaluate the patient for IVC filter placement Anorexia. Cyproheptadine 2 mg p.o. q.i.d. Rheumatoid arthritis Hyponatremia. Monitor sodium levels intermittently Hypokalemia. Will monitor potassium also intermittently supplements necessary Hypomagnesemia. Resolved Urinary tract infection. Urine culture positive for E coli. C Zosyn 3.375 g IV q.6 hours Diverticulosis Grade 1 diastolic dysfunction DVT prophylaxis. Bilateral Keith hose Disposition: Patient appears medically stable for discharge. I will discuss the patient's case with case management specialist left total/social work and will determine discharge planning based on Physical therapy and Occupational therapies findings recommendations END OF DOCTOR DIGNA?S PROGRESS NOTE Subjective Date/time seen: 05/15/21 10:41 Objective Data Vital Signs Vital Signs: Vital Signs - 24 hr 05/14/21 12:00 05/14/21 14:00 05/14/21 14:19 Temperature 96.8 F L Pulse Rate 97 89 91 Respiratory Rate 20 16 Blood Pressure 132/84 Pulse Oximetry 98 05/14/21 14:31 05/14/21 16:00 05/14/21 18:00 Temperature 96.9 F L Pulse Rate 87 96 103 H Respiratory Rate 16 20 Blood Pressure 142/87 H Pulse Oximetry 99 05/14/21 20:00 05/14/21 20:13 05/14/21 20:14 Temperature 97.6 F Pulse Rate 98 84 Respiratory Rate 16 16 Blood Pressure 137/87 Pulse Oximetry 94 94 05/14/21 20:20 05/14/21 22:00 05/14/21 23:40 Temperature 97.9 F Pulse Rate 82 85 88 Respiratory Rate 16 16
[2021-05-15] MEDS: hydrALAZINE HCL 25 MG TABLET PO (12:49)
--- NOTE | 2021-05-15 14:47 | PM.DS ---
DS: Admitting Diagnosis Discharge Date 2:51 p.m. on May 15, 2021 Admitting Diagnosis Bright red blood per rectum due to hemorrhoidal bleeding DS: Summary Hospital Course Hospital Course: See discharge summary below Time Spent with Patient Time attestation: Total time spent providing and/or coordinating discharge services: START OF DOCTOR DIGNA?S DISCHARGE SUMMARY Date of Admission: May 08, 2020 Date of Discharge: 2:40 p.m. on May 15, 2021 Primary Diagnosis: Bright red blood per rectum due to hemorrhoidal bleeding for which patient status post hemorrhoidectomy with General surgery on May 08, 2021 Secondary Diagnosis: Encephalopathy, resolved History of hernia GI bleed Query pneumonia GERD Anemia COPD, O2 dependent 3 L Atrial fibrillation Six history of cerebral hemorrhage History of CVA Hyperlipidemia Hypertension Hypothyroidism Obstructive sleep apnea Osteoporosis Polymyalgia rheumatica History of DVT/PE Anorexia Rheumatoid Arthritis Hyponatremia, resolved Hypokalemia, resolved Hypomagnesemi, resolved Urinary tract infection, urine culture positive for E coli Diverticulosis Grade 1 diastolic dysfunction Consultations: General surgery, Gastroenterology Disposition: The patient be advised follow-up with her primary care physician 3-5 days post discharge for post hospitalization evaluation The patient is advised follow-up with General surgery 2 weeks post discharge Discharge Medications: Orencia 125 mg subcutaneously weekly Eliquis 2.5 mg p.o. b.i.d. Vitamin-C 500 mg p.o. daily Calcium carbonate 600 mg p.o. daily Vitamin-D 10 mg p.o. daily Ferrous sulfate 325 mg p.o. daily Folic acid 0.4 mg p.o. daily [place] 5/325 mg p.o. q.6 hours p.r.n. pain Compazine 10 mg p.o. q.6 hours p.r.n. nausea/vomiting Lipitor 40 mg p.o. q.h.s. Prilosec 40 mg p.o. daily Hydralazine 25 mg p.o. t.i.d. Periactin 2 mg p.o. q.6 hours Nitrofurantoin 50 mg p.o. q.6 hours. Quantity 20. 0 refills Levaquin 500 mg p.o. daily. Twenty-seven. 0 refills END OF DOCTOR DIGNA?S DISCHARGE SUMMARY DS: Data Data Completed and Pending Completed studies during hospitalization: Pending at discharge 05/07/21 11:07 Surgical [PTH] Routine 05/08/21 14:47 Surgical [PTH] Routine Surgical [PTH] Routine Labs on day of discharge: Labs from last 24 hours 05/14/21 05/14/21 23:19 21:01 Urine Color Yellow Urine Appearance Clear Urine pH 5.0 Ur Specific [place] 1.031 Urine Protein 1+ H Urine Glucose (UA) Negative Urine Ketones Trace Ur Blood (Man) 1+ H Urine Nitrate Negative Urine Bilirubin Negative Urine Urobilinogen Negative Ur Leukocyte Esterase Negative Urine RBC 6-10 H Urine WBC 10-15 H Ur Squamous Epith Cells Rare Calcium Oxalate Crystal Present Urine Bacteria Trace Urine Mucus Rare Vancomycin Trough 14.0 Discharge Plan Discharge Consulting providers: Ray Madrid ; Sean Zamorano Discharging Clinician: Dr. Up Patient Disposition: Inpatient Rehab Facility Activity: as tolerated Diet: heart healthy, low sodium, low cholesterol and low fat Discharge Instructions: Per Care Coordination Patient has been accepted to have [facility] for RN, PT, OT [phone]. RN please fax completed discharge instructions to [phone] Sitz bath or clean perianal area after BM and p.r.n.. Continue Metamucil 1 tbsp and mineral oil 1 tbsp daily after discharge. See Dr. zamorano in 2 weeks in the office for follow-up status post hemorrhoidectomy. The patient is advised follow-up with her primary care physician 3-5 days post discharge for post hospitalization evaluation Patient Instructions: Gastrointestinal Bleeding (DC) Stand Alone Forms: General Discharge Information Follow-up/Referrals: Ashlie
[2021-05-15 16:06] LABS: EDCOVIDSCREEN Negative (Negative)
[2021-05-15] MEDS: ATORVASTATIN 40 MG TABLET PO (17:42)
== END 2021-05-15 21:15 | DRG 347 ==
LOC: ANHED 16:32 → ANH3MEDSUR 17:30 → ANHIMU 05-15 14:44 → ANH3MEDSUR 05-16 11:57 → ANHIMU 05-16 11:57
PROVIDERS: Internal Medicine; Internal Medicine Gastroenterology; Nurse Practitioner; Surgery; Admitting Provider Hospitalist; Emergency Provider Family Medicine; PCP Family Medicine; Visit Provider Internal Medicine
PROC: 0DJ08ZZ Inspection of Upper Intestinal Tract, Via Natural or Artificial Opening Endoscopic (ICD-10-PCS; CPT 43235; principal; 2021-05-07 13:00)
PROC: 06BY0ZC Excision of Hemorrhoidal Plexus, Open Approach (ICD-10-PCS; principal; 2021-05-08 14:30)
DX: A41.9 Sepsis, unspecified organism (principal); K64.8 Other hemorrhoids; J18.9 Pneumonia, unspecified organism; G93.40 Encephalopathy, unspecified; I48.20 Chronic atrial fibrillation, unspecified; J96.11 Chronic respiratory failure with hypoxia; E87.1 Hypo-osmolality and hyponatremia; N39.0 Urinary tract infection, site not specified; J44.0 Chronic obstructive pulmonary disease with (acute) lower respiratory infection; K64.4 Residual hemorrhoidal skin tags; B96.20 Unspecified Escherichia coli [E. coli] as the cause of diseases classified elsewhere; D64.9 Anemia, unspecified; K57.30 Diverticulosis of large intestine without perforation or abscess without bleeding; Z20.822 Contact with and (suspected) exposure to COVID-19; K22.2 Esophageal obstruction; K44.9 Diaphragmatic hernia without obstruction or gangrene; K29.70 Gastritis, unspecified, without bleeding; K31.7 Polyp of stomach and duodenum; R63.0 Anorexia; E87.6 Hypokalemia; E83.42 Hypomagnesemia; M35.3 Polymyalgia rheumatica; M06.9 Rheumatoid arthritis, unspecified; E05.90 Thyrotoxicosis, unspecified without thyrotoxic crisis or storm; K21.9 Gastro-esophageal reflux disease without esophagitis; I11.9 Hypertensive heart disease without heart failure; R13.10 Dysphagia, unspecified; E78.5 Hyperlipidemia, unspecified; G47.33 Obstructive sleep apnea (adult) (pediatric); M81.0 Age-related osteoporosis without current pathological fracture; Z79.01 Long term (current) use of anticoagulants; Z86.010 Personal history of colon polyps; Z86.711 Personal history of pulmonary embolism; Z86.718 Personal history of other venous thrombosis and embolism; Z86.73 Personal history of transient ischemic attack (TIA), and cerebral infarction without residual deficits; Z99.81 Dependence on supplemental oxygen; Z99.89 Dependence on other enabling machines and devices
CPT/HCPCS: 36415; 71045; 74018; 80048; 80053; 80202; 81001; 82140; 83605; 83735; 84075; 84080; 84100; 84132; 85025; 85027; 85610; 86850; 86900; 86901; 87040; 87076; 87077; 87086; 87088; 87185; 87186; 87426; 88304; 88305; 93005; 94640; 96361; 96365; 96366; 96374; 96375; 97110; 97161; 97166; 97530; 99285; A9270; C9290; C9803; G0378; J0360; J1200; J1650; J1940; J2270; J2405; J2543; J2704; J2765; J2920; J3010; J3370; J3475; J3480; J7030; J7050; J7120

== ENCOUNTER 2021-06-08 14:37 | Outpatient (NON) | payer MEDICARE, SELFPAY ==
[2021-06-08 14:56] LABS: Hematocrit 37.2 % (37.0-47.0); Hemoglobin 11.5 g/dL (12.0-15.0); Mean Corpuscular HGB Conc 30.9 g/dl (32-36); Mean Corpuscular Hemoglobin 29.5 pg (26-34); Mean Corpuscular Volume 95.4 fl (80-100); Platelet Count Result 215 k/mm3 (150-375); Red Cell Distribution Width 17.7 % (11.5-14.5); White Blood Count 8.3 K/mm3 (4.5-10.0)
[2021-06-08 15:03] LABS: Alanine Aminotransferase 22 U/L (4-35); Albumin Level 2.9 g/dL (3.5-5.1); Alkaline Phosphatase 283 U/L (38-126); Anion Gap 8 mmol/L (8-16); Aspartate Amino Transferase 51 U/L (14-36); Bilirubin,Total 0.7 mg/dL (0.2-1.3); Blood Urea Nitrogen 11 mg/dL (7-17); Calcium 8.8 mg/dL (8.4-10.2); Carbon Dioxide 26 mmol/L (22-30); Chloride 104 mmol/L (98-107); Estimated Glomerular Filt Rate > 60; Glucose 121 mg/dL (65-110); Potassium 3.7 mmol/L (3.4-5.0); Sodium 138 mmol/L (137-145)
== END 2021-06-08 14:38 | disposition home or self-care (01) ==
PROVIDERS: PCP Family Medicine; Visit Provider Nurse Practitioner Family
DX: K92.2 Gastrointestinal hemorrhage, unspecified (principal); N17.9 Acute kidney failure, unspecified
CPT/HCPCS: 80053; 85027

== ENCOUNTER 2021-06-13 13:11 | Outpatient (CLI) | payer MEDICARE, SELFPAY ==
--- NOTE | ~2021-06-13 | US_ITS ---
EXAMINATION: US venous doppler LE DATE: 06/13/2021 13:46 INDICATION: Bilateral lower limb edema and pain TECHNIQUE: Suarez scale images without and with compression and Doppler images of the bilateral lower e xtremity veins were obtained. COMPARISON: 03/31/2021 FINDINGS: The right common femoral vein, profunda femoral vein, femoral vein, popliteal vein, peroneal trunk, p osterior tibial veins, and greater saphenous vein are patent. The left common femoral vein, profunda femoral vein, femoral vein, popliteal vein, peroneal trunk, po sterior tibial veins, and greater saphenous vein are patent. A 6.2 x 2.7 cm Robertson's cyst is noted. IMPRESSION: 1. Patent bilateral lower extremity veins. No evidence of deep venous thrombosis. 2. Left Robertson's cyst. Reviewed, dictated and finalized at location B. IMPRESSION: 1. Patent bilateral lower extremity veins. No evidence of deep venous thrombosi s. 2. Left Robertson's cyst.
== END 2021-06-13 13:12 | disposition home or self-care (01) ==
LOC: ANHIMG 13:13
PROVIDERS: PCP Family Medicine; Visit Provider Family Medicine
DX: M79.661 Pain in right lower leg (principal); M79.662 Pain in left lower leg; M71.22 Synovial cyst of popliteal space [Baker], left knee
CPT/HCPCS: 93970

== ENCOUNTER 2021-10-31 01:01 | Day surgery (SDC) | payer MEDICARE, SELFPAY ==
[2021-10-24 13:52] VITALS: BMI 24.5
--- NOTE | 2021-10-30 17:13 | PM.HPGS ---
History of Present Illness History of Present Illness Consent: Risks, benefits, and alternatives have been discussed and questions answered. Patient agrees to proceed with procedure. Chief complaint: dysphagia Narrative: Rosa Veronica is a 81 year old female who has a history of having an esophageal stricture that required dilatation every so often. I had done that in 2013, 2019 at twice in 2020. Now she is feeling that food is getting stuck in that she chews it up very fine. Also she will choke on liquids but usually this occurs when she is in the process of eating according to her . I asked if she ever had trouble swallowing liquids or pills without eating. She states not usually I am asked about this because I was concerned she might have an oropharyngeal dysphagia. Her reminded me that she had herpes encephalitis about 5 years ago after their trip to [place]. She was in the hospital for 120 days. She had neuro surgery with the surgeon removing a small area of necrotic brain tissue. 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 Her stated that she had at least 2 modified barium swallow studies at that time and subsequently had speech therapy and also electrical stimulation to the area around her throat to help with her swallowing. Since then she actually has not had much of a trouble with liquids. Review of Systems Review of Systems: All systems reviewed & are unremarkable except as noted in HPI and below PMFSH Past Medical History Medical History Anticoagulant long-term use Atrial fibrillation Chronic low back pain Chronic venous insufficiency of lower extremity COPD (chronic obstructive pulmonary disease) With CT demonstrating emphysema with mild bronchiectasis Esophageal stricture Essential (primary) hypertension uncontrolled on medications GERD without esophagitis Hemorrhoid History of blood clots 2015 - RUE History of cerebral hemorrhage History of shingles History of skin cancer History of stroke Hyperlipidemia Hypertension Hypokalemia Obstructive sleep apnea (~10/2020) Polysomnogram suggesting CPAP pressure of 13 with 3 L bleed in O2 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 H/O shoulder surgery (~1965) H/O Spinal surgery (~1969) spinal tumor removed H/O: hysterectomy (~1974) History of appendectomy (~1949) History of esophageal dilatation 04/2021 History of esophagogastroduodenoscopy (EGD) (~05/2020) History of hemorrhoidectomy 05/08/2021 History of knee replacement Right History of umbilical hernia repair (10/2020) Family History Family History Father Family history of Alzheimer's disease Hypertension Hyperlipidemia Mother Hypertension Other Diabetes mellitus Nervous disorder Hypertension Heart disease Other Cerebrovascular accident Family history of arthritis Family history of thyroid disease Social History Social History Social History: She has been 3 times. Her 1st after 40 years of marriage. Her 2nd after 5 years . She has been to her current has been for 12 years. She has 3 children who are healthy. She is a lifelong nonsmoker and does not drink alcohol. Smoking status: Never smoker Second hand tobacco smoke exposure: No
--- NOTE | 2021-10-31 07:19 | SUR.PREOP ---
MD Ordoñez notified of pt BP. Orders received.
[2021-10-31 07:22] VITALS: BP 205/110; PULSE 80; RESP 20; TEMP 36.3; O2SAT 97; BMI 25.1
--- NOTE | 2021-10-31 07:23 | WPDANESEPPF ---
Anes - Initial Pre Proc Eval Procedure: Operation Date: 10/31/21 08:30 Proposed Procedures p Esophagogastroduodenoscopy - Malcolm Carlton MD Date/Time: 10/31/21 07:23 Surgeon: Malcolm Carlton MD Pre Op Diagnosis: dysphagia Patient Data Age: 81 Gender: F Height: 1.6 m Weight: 63 kg Allergies Allergy/AdvReac Type Severity Reaction Status Date / Time No Known Allergies Allergy Verified 10/31/21 07:20 Home Medications Medication Instructions Recorded Confirmed Type cholecalciferol (vitamin D3) 25 mcg PO DAILY 04/06/21 10/24/21 History [Vitamin D3] prednisone 5 mg tablet 5 mg PO DAILY@0800 #30 tablet 07/11/21 10/24/21 Rx lisinopril 10 mg tablet 10 mg PO DAILY #90 tablet 08/22/21 10/24/21 Rx omeprazole 40 mg capsule,delayed 40 mg PO DAILY 90 Days #90 cap 08/24/21 10/24/21 Rx release apixaban 2.5 mg tablet 2.5 mg PO BID tablet 10/22/21 10/24/21 History folic acid 1 mg tablet 1 mg PO DAILY tablet 10/22/21 10/24/21 History methotrexate (PF) 10 mg/0.2 mL 10 mg SUBCUT WEEKLY 10/22/21 10/24/21 History subcutaneous auto-injector multivit with 1 tablet PO DAILY 10/22/21 10/24/21 History gxropvmn-sgxa-RB-lutein 8 mg iron-400 mcg-300 mcg tablet prednisone 2.5 mg tablet 2.5 mg PO QPM tablet 10/22/21 10/24/21 History acetaminophen [Tylenol] 325 mg PO Q6H PRN 10/24/21 10/24/21 History diphenhydramine-acetaminophen 1 tablet PO HS 10/24/21 10/24/21 History [Tylenol PM Extra Strength] tramadol 50 mg PO Q6H PRN 10/24/21 10/24/21 History Patient hx anesthesia problems: none Family hx anesthesia problems: none Results Review: All pre-operative results and documents have been reviewed as part of the pre-operative evaluation. [facility] Past Medical History Medical History Anticoagulant long-term use Atrial fibrillation Chronic low back pain Chronic venous insufficiency of lower extremity COPD (chronic obstructive pulmonary disease) With CT demonstrating emphysema with mild bronchiectasis Esophageal stricture Essential (primary) hypertension uncontrolled on medications GERD without esophagitis Hemorrhoid History of blood clots 2015 - RUE History of cerebral hemorrhage History of shingles History of skin cancer History of stroke Hyperlipidemia Hypertension Hypokalemia Obstructive sleep apnea (~10/2020) Polysomnogram suggesting CPAP pressure of 13 with 3 L bleed in O2 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 H/O shoulder surgery (~1964) H/O Spinal surgery (~1968) spinal tumor removed H/O: hysterectomy (~1974) History of appendectomy (~1949) History of esophageal dilatation 04/2021 History of esophagogastroduodenoscopy (EGD) (~05/2020) History of hemorrhoidectomy 05/08/2021 History of knee replacement Right History of umbilical hernia repair (10/2020) Family History Family History Father Family history of Alzheimer's disease Hypertension Hyperlipidemia Mother Hypertension Other Diabetes mellitus Nervous disorder Hypertension Heart disease Other Cerebrovascular accident Family history of arthritis Family history of thyroid disease Social History Social History Social History: She has been 3 times. Her 1st after 40 years of marriage. Her 2nd after 5 years . She has been to her current has been for 12 years. She phelps
[2021-10-31] MEDS: LACTATED RINGERS 1,000 ML 150 ML IV CONT (07:32)
[2021-10-31 07:33] VITALS: PULSE 80
[2021-10-31] MEDS: LABETALOL HCL INJ 100 MG/20 ML VIAL 10 MG IV PUSH (07:33)
[2021-10-31 07:48] VITALS: BP 153/91; PULSE 93
[2021-10-31 08:32] VITALS: BP 158/101; PULSE 68; RESP 18; O2SAT 98
[2021-10-31 08:42] VITALS: BP 135/85; PULSE 66; RESP 22; O2SAT 96
[2021-10-31 08:52] VITALS: BP 158/98; PULSE 70; RESP 22; O2SAT 97
== END 2021-10-31 09:13 | disposition home or self-care (01) ==
PROVIDERS: PCP Family Medicine; Visit Provider Internal Medicine Gastroenterology
PROC: 0DJ08ZZ Inspection of Upper Intestinal Tract, Via Natural or Artificial Opening Endoscopic (ICD-10-PCS; CPT 43235; principal; 2021-10-31 08:30)
DX: K22.2 Esophageal obstruction (principal); K29.70 Gastritis, unspecified, without bleeding; K21.9 Gastro-esophageal reflux disease without esophagitis; I48.91 Unspecified atrial fibrillation; J44.9 Chronic obstructive pulmonary disease, unspecified; I10 Essential (primary) hypertension; E78.5 Hyperlipidemia, unspecified; G47.33 Obstructive sleep apnea (adult) (pediatric); M35.3 Polymyalgia rheumatica; I87.2 Venous insufficiency (chronic) (peripheral); M06.9 Rheumatoid arthritis, unspecified; E55.9 Vitamin D deficiency, unspecified; M54.9 Dorsalgia, unspecified; G89.29 Other chronic pain; Z86.711 Personal history of pulmonary embolism; Z86.73 Personal history of transient ischemic attack (TIA), and cerebral infarction without residual deficits; Z79.01 Long term (current) use of anticoagulants
CPT/HCPCS: 43239; 43249; 87081; C1726; J2704; J7120

== ENCOUNTER → 2022-02-22 09:41 | Outpatient (CLI) | payer MEDICARE, SELFPAY ==
--- NOTE | ~2022-02-22 | US_ITS ---
EXAMINATION: US thyroid DATE: 02/22/2022 10:32 INDICATION: Multinodular goiter TECHNIQUE: Multiple ultrasound images of the thyroid were obtained. COMPARISON: None. FINDINGS: The right thyroid lobe measures 3.6 x 1.9 x 2.4 cm. The left thyroid lobe measures 4.0 x 2.8 x 3.1 c m. 1.0 cm TI RADS 1 nearly entirely anechoic and cystic nodule small peripheral echogenic component in the right thyroid. 1.2 cm wider than tall spongiform nodule in the right thyroid lobe, also TI RAD S 1. There are a couple similar appearing solid wider than tall hypoechoic nodules with smooth margin s and without echogenic foci in the left thyroid lobe measuring 2.6 cm and 1.4 cm (TI-RADS 4, moderat leela suspicious , FNA if >=1.5 cm, annual followup is >=1 cm). Additional 2.1 cm similar-appearing nod ule in the left thyroid measuring but also with small echogenic foci (TI-RADS 5, highly suspicious , FNA if >=1.0 cm, annual followup is >0.5 cm). IMPRESSION: 1. Multinodular goiter. Recommend ultrasound-guided biopsy of the 2.1 cm TI RADS 5 nodule in the righ t thyroid lobe. Reviewed, dictated and finalized at location B. IMPRESSION: 1. Multinodular goiter. Recommend ultrasound-guided biopsy of the 2.1 cm TI RAD S 5 nodule in the right thyroid lobe.
== END ==
LOC: EXPGOSH 09:42 → EXPGOSHRAD 02-25 15:07
PROVIDERS: PCP Family Medicine; Visit Provider Family Medicine
DX: E04.2 Nontoxic multinodular goiter (principal)
CPT/HCPCS: 76536

== ENCOUNTER 2022-03-26 12:25 | Outpatient (CLI) | payer MEDICARE, SELFPAY ==
--- NOTE | ~2022-03-26 | US_ITS ---
EXAMINATION: US FNA w image guidance DATE: 03/26/2022 13:48 INDICATION: Multinodular goiter TECHNIQUE: A time-out was performed to verify the patient's name, date of , and procedure to be performed . The procedure and its benefits and risks were discussed with the patient. Risks specifically discus sed included bleeding and infection. The patient understood the risks and agreed to proceed. The neck was prepped and draped in the usual sterile manner. 3 mL 1% lidocaine was used for local anesthesia . 6 passes were made with a 25G needle into the lesion. Appropriate needle location was documented with continuous sonographic guidance. A sterile bandage was applied. There were no immediate compli cations. FINDINGS: Prior images were reviewed and additional marshmallow runner images of the left thyroid were obtained. On real-rafita e imaging hyperechoic foci were seen within the largest 2.9 cm solid nodule in the left thyroid which were not appreciated on the prior ultrasound resulting in up grading of the nodule to TI RADS 5. Giv en the identical imaging features and creating, it was elected to proceed with biopsy of this larger nodule rather than the smaller 2.4 cm nodule initially recommended for biopsy. On the earlier imaging . Subsequent images demonstrate the biopsy needle advanced into the 2.9 cm TI RADS 5 nodule in the mi d to inferior left thyroid. IMPRESSION: 1. Successful ultrasound-guided fine needle aspiration of the largest 2.9 cm BI-RADS 5 nodule in the left thyroid nodule. Reviewed, dictated and finalized at location A. IMPRESSION: 1. Successful ultrasound-guided fine needle aspiration of the largest 2.9 cm B I-RADS 5 nodule in the left thyroid nodule.
== END 2022-03-26 12:26 | disposition home or self-care (01) ==
LOC: ANHIMG 12:30
PROVIDERS: PCP Family Medicine; Visit Provider Internal Medicine Endocrinology, Diabetes & Metabolism
DX: E04.2 Nontoxic multinodular goiter (principal)
CPT/HCPCS: 10005; 88173; 88305

== ENCOUNTER 2022-05-23 10:51 | Outpatient (CLI) | payer MEDICARE, SELFPAY ==
--- NOTE | ~2022-05-23 | XR_ITS ---
XR chest 2V 05/23/2022 11:14 Indication: Cough. History of COPD. Procedure: 2 view chest Comparison: Comparison to multiple prior studies sequentially, with oldest reviewed study dated 04/08. Findings: Cardiomegaly. Blunting left lateral costophrenic recess is unchanged. Cannot exclude small effusion. No focal pneumonia, edema or pneumothorax. There is severe dextroscoliosis of the thoracic spine. Impression: 1: Mildly elevated left diaphragm with blunting of the costophrenic recess. Possible small left effus ion. Reviewed, dictated and finalized at location A. Impression: 1: Mildly elevated left diaphragm with blunting of the costophrenic recess. Pos sible small left effusion.
== END 2022-05-23 10:52 | disposition home or self-care (01) ==
PROVIDERS: PCP Family Medicine; Visit Provider Nurse Practitioner
DX: R13.12 Dysphagia, oropharyngeal phase (principal); R09.89 Other specified symptoms and signs involving the circulatory and respiratory systems; R05.9 Cough, unspecified; I51.7 Cardiomegaly; M41.9 Scoliosis, unspecified
CPT/HCPCS: 71046

== ENCOUNTER 2022-05-31 08:31 | Outpatient (CLI) | payer MEDICARE, SELFPAY ==
--- NOTE | ~2022-05-31 | XR_ITS ---
MODIFIED ESOPHAGRAM HISTORY: Oropharyngeal dysphagia with coughing TECHNIQUE: Modified barium esophagram was performed on 05/31/2022. I administered fluoroscopy and per formed the exam with speech pathologist. Patient was seated for lateral fluoroscopic imaging for ing estion of thin liquids, pudding, solids and quantified amounts, followed by thin liquids in uncontrol led amounts. This was recorded on tape. A single fluoroscopic spot image was also recorded. The DAP f or this procedure was 1.997 Gycm2. The amount of fluoroscopy time used during this procedure was 2.6 minutes. FINDINGS: Oral stage: Adequate function. Pharyngeal stage: Reduced pharyngeal squeeze with residue along the pharyngeal wall as well as in the vallecula and piriform sinus. There is recurrent laryngeal penetration with all consistencies. Cervical/esophageal stage: Adequate function. IMPRESSION: Recurrent laryngeal penetration without franko aspiration. Please correlate with speech p athologist findings and specific feeding recommendations. Reviewed, dictated and finalized at location A. IMPRESSION: Recurrent laryngeal penetration without franko aspiration. Please c orrelate with speech pathologist findings and specific feeding recommendations.
--- NOTE | ~2022-05-31 | XR_ITS ---
EXAMINATION: XR UGIAC w barium swallow DATE: 05/31/2022 10:21 INDICATION: Oropharyngeal dysphagia TECHNIQUE: The patient drank thick barium, gas-producing crystals, and thin barium. Fluoroscopic spot radiographs of the hypopharynx, esophagus, stomach and proximal small bowel were obtained. Fluorosco py exposure time was 3.4 minutes. Total of 1233 images were recorded. COMPARISON: None. FINDINGS: The pharynx is symmetric and without evidence of mass lesion or mucosal irregularity. There are anter ior endplate osteophytes in the lower cervical spine which impress upon the posterior margin of the c ervical esophagus. The esophagus is normal without mass or stricture. Esophageal motility is within n ormal limits for age with occasional tertiary contractions. There is no hiatal hernia. There was no g astroesophageal reflux with provocative maneuvers. The stomach and proximal small bowel are normal. P ostoperative changes with multilevel laminectomy in the cervical spine. IMPRESSION: 1. Mild nonobstructing mass effect upon the posterior margin of the cervical portion of the esophagus resulting from small endplate osteophytes in the lower cervical spine. Otherwise unremarkable esopha gram and upper GI study. Reviewed, dictated and finalized at location A. IMPRESSION: 1. Mild nonobstructing mass effect upon the posterior margin of the cervical po rtion of the esophagus resulting from small endplate osteophytes in the lower c ervical spine. Otherwise unremarkable esophagram and upper GI study.
--- NOTE | 2022-05-31 10:23 | STOPEVAL1 ---
Assessment and note entered by Nova Arteaga, DIRECTOR ELECTRICAL ENGINEERING Evaluation Information Assessment Status Evaluation Reported Pain Level Pain Score 0: Self Report Assessment ST Clinical Summary Patient presents with history of dysphagia and previous treatment of said disorder. Currently she is seen for this MBS due to continued difficulty with coughing when drinking liquids. Patient demonstrates functional oral prepatory and oral stage with all consistencies tested. However, she had trace penetration with uncontrolled bolus (thin, mildly thick, moderately thick, and pureed consistencies). Residue on pharyngeal gresham and in pyriform sinuses and valleculae reduced with multiple swallows, chin tuck, throat clear, cough, and slight head turn to right. Results were discussed with patient and . Recommendation: regular diet texture with thin liquids. Small bite size, small sips. Position upright, chin tuck and head slightly turned to right are recommended to reduce pharyngeal residue and decrease risk of aspiration . No speech therapy recommended at this time. Thank you for the referral of this patient. Plan of Care ST Services Indicated No These treatments will address the objective and functional deficits as defined above. The patient will be advanced safely and appropriately in order for the patient to progress towards his/her prior level of function. Additional exercises will be introduced and as well as a comprehensive home exercise program upon discharge, if needed, ?to ensure carryover of functional gains achieved in the clinic. This treatment plan has been reviewed and agreement upon by the patient.
== END 2022-05-31 08:32 | disposition home or self-care (01) ==
PROVIDERS: PCP Family Medicine; Visit Provider Nurse Practitioner
DX: R13.10 Dysphagia, unspecified (principal)
CPT/HCPCS: 74246; 92611

== ENCOUNTER 2022-06-28 14:59 | Outpatient (CLI) | payer MEDICARE, SELFPAY ==
[2022-06-28 16:19] LABS: Thyroid Stimulating Hormone 0.271 uIU/mL (0.465-4.680)
[2022-06-28 17:20] LABS: Free T4 Free Thyroxine 1.19 ng/mL (0.78-2.19)
== END 2022-06-28 15:00 | disposition home or self-care (01) ==
PROVIDERS: PCP Family Medicine; Visit Provider Internal Medicine Endocrinology, Diabetes & Metabolism
DX: E07.9 Disorder of thyroid, unspecified (principal); E04.2 Nontoxic multinodular goiter; M81.0 Age-related osteoporosis without current pathological fracture
CPT/HCPCS: 36415; 84439; 84443

== ENCOUNTER 2022-07-02 12:30 | Outpatient (CLI) | payer MEDICARE, SELFPAY ==
--- NOTE | ~2022-07-02 | US_ITS ---
EXAMINATION: US FNA w image guidance DATE: 07/02/2022 13:30 INDICATION: 2.1 cm TI RADS 5 left thyroid nodule TECHNIQUE: A time-out was performed to verify the patient's name, date of , and procedure to be performed . The procedure and its benefits and risks were discussed with the patient. Risks specifically discus sed included bleeding and infection. The patient understood the risks and agreed to proceed. The neck was prepped and draped in the usual sterile manner. 3 mL 1% lidocaine was used for local anesthesia . 6 passes were made with a 25G needle into the lesion. Appropriate needle location was documented with continuous sonographic guidance. A sterile bandage was applied. There were no immediate compli cations. FINDINGS: Grayscale ultrasound images demonstrate biopsy needles advanced into the indicated nodule which measu red 2.1 cm with internal echogenic foci in the prior study performed on 02/22/2022. The nodule measure s approximately 2.6 cm in maximal diameter on the current study, again with internal echogenic foci w ithin a few of the foci . Demonstrate posterior comet tailing which would favor inspissated colloid. IMPRESSION: 1. Successful ultrasound-guided fine needle aspiration of the TI-RADS 5 nodules concerning the mid l eft thyroid which measured 2.1 cm on the images on 02/23/2020 but 2.6 cm in maximal diameter on the cu rrent study. Reviewed, dictated and finalized at location A. R SALES REPRESENTATIVE IMPRESSION: 1. Successful ultrasound-guided fine needle aspiration of the TI-RADS 5 nodule s concerning the mid left thyroid which measured 2.1 cm on the images on 020 but 2.6 cm in maximal diameter on the current study.
== END 2022-07-02 12:31 | disposition home or self-care (01) ==
PROVIDERS: PCP Family Medicine; Visit Provider Internal Medicine Endocrinology, Diabetes & Metabolism
DX: E04.1 Nontoxic single thyroid nodule (principal)
CPT/HCPCS: 10005; 88173; 88305

== ENCOUNTER 2022-07-16 09:14 | Outpatient (CLI) | payer MEDICARE, SELFPAY ==
[2022-07-16 18:58] LABS: Basophils Absolute Auto 0.1 K/mm3 (0.0-0.1); Basophils Percent Auto 1.1 % (0.2-1.2); Eosinophils Absolute Auto 0.2 K/mm3 (0-0.3); Eosinophils Percent Auto 3.6 % (0-4.4); Hematocrit 47.7 % (37.0-47.0); Hemoglobin 15.3 g/dL (12.0-15.0); Immature Granulocyte Absolute 0.01 K/mm3 (0.00-0.031); Immature Granulocyte Percent A 0.2 % (0-0.5); Lymphocytes Absolute Auto 1.99 K/mm3 (0.9-3.2); Lymphocytes Percent Auto 44.8 % (18.3-44.2); Mean Corpuscular HGB Conc 32.1 g/dl (32-36); Mean Platelet Volume 10.8 fl (7.4-10.4); Monocytes Absolute Auto 0.5 K/mm3 (0.1-0.6); Neutrophils Absolute Auto 1.7 K/mm3 (1.3-6.7); Neutrophils Percent Auto 39.3 % (45.5-73.1); Platelet Count Result 130 k/mm3 (150-375); Red Blood Count 4.63 M/mm3 (4.2-5.4); Red Cell Distribution Width 15.8 % (11.5-14.5); White Blood Count 4.4 K/mm3 (4.5-10.0)
[2022-07-16 19:05] LABS: Alanine Aminotransferase 31 U/L (6-35); Albumin Level 3.9 g/dL (3.5-5.1); Alkaline Phosphatase 95 U/L (38-126); Anion Gap 3 mmol/L (8-16); Aspartate Amino Transferase 53 U/L (14-36); Bilirubin,Total 0.7 mg/dL (0.2-1.3); Blood Urea Nitrogen 19 mg/dL (7-17); Calcium 9.5 mg/dL (8.4-10.2); Carbon Dioxide 31 mmol/L (22-30); Chloride 109 mmol/L (98-107); Cholesterol 294 mg/dL (0-200); Estimated Glomerular Filt Rate > 60; Glucose 69 mg/dL (65-110); HDL Direct 72 mg/dL; Potassium 4.4 mmol/L (3.4-5.0); Sodium 143 mmol/L (137-145); Triglycerides 126 mg/dL (<150)
[2022-07-16 19:16] LABS: LDL Cholesterol Direct 154 mg/dL
[2022-07-16 19:28] LABS: Vitamin D 25 Hydroxy 37.2 ng/mL
== END 2022-07-16 09:15 | disposition home or self-care (01) ==
LOC: ANHGOSHLAB 09:20
PROVIDERS: PCP Family Medicine; Visit Provider Family Medicine
DX: E04.1 Nontoxic single thyroid nodule (principal); Z13.220 Encounter for screening for lipoid disorders; M06.9 Rheumatoid arthritis, unspecified; E53.8 Deficiency of other specified B group vitamins; E55.9 Vitamin D deficiency, unspecified; I10 Essential (primary) hypertension
CPT/HCPCS: 36415; 80053; 80061; 82306; 82607; 84443; 85025

== ENCOUNTER 2022-08-28 12:30 | Outpatient (RCR) | payer MEDICARE, SELFPAY ==
--- NOTE | 2022-07-25 16:03 | PTOPEVAL1 ---
Assessment and note entered by Nolan Toney, PT, DPT Evaluation Information Assessment Status Evaluation Diagnosis unsteadiness on feet Subjective Information Pt states she cannot walk very well because of her strength and her balance. Pt husbands states she had her knee replaced 2 years ago and she has been going down hill since then. Pt states her most recent falls was on Friday and she is able to get off the floor on her own, or even with the help of her . Pt states she uses a rollator at home, and a straight cane and her husbands arm when walking outside of the home. Reported Pain Level Pain Score 6: Self Report Assessment PT Clinical Summary Rosa is a 81 y/o female who presents to therapy today for her initial evaluation. Today she demonstrates significantly decreased mobility and deconditioning. She requires increased time to complete the TUG and 5xSTS tests placing her at an increased risk of falls. She ambulates with a gait speed that averages 0.6 ft/s, and has a Tinetti score of 16/28, both of these also place her at an increased risk of falls. She reports back pain and SOB is also a limiting factor for her. Skilled physical therapy services are indicated to address balance and strength deficits, to improve endurance, to promote safety, to minimize fall risks, to improve gait, and to improve functional mobility. Plan of Care Interventions Gait Training,Hot Pack/Cold Pack,Manual Therapy, Neuro Re-education,Patient/Caregiver Educati, Therapeutic Activities,Therapeutic Exercise PT Services Indicated Yes Treatment Frequency and 2x/wk for 4 wks Duration These treatments will address the objective and functional deficits as defined above. The patient will be advanced safely and appropriately in order for the patient to progress towards his/her prior level of function. Additional exercises will be introduced and as well as a comprehensive home exercise program upon discharge, if needed, ?to ensure carryover of functional gains achieved in the clinic. This treatment plan has been reviewed and agreement upon by the patient.
--- NOTE | 2022-08-20 16:42 | PCPTNOTE ---
Patient canceled appointment this date due to illness.
--- NOTE | 2022-08-22 12:36 | PCPTNOTE ---
Patient canceled treatment due to illness.
--- NOTE | 2022-08-28 13:10 | PTOPDC ---
Assessment and note entered by Nolan Toney, PT, DPT Evaluation Information Assessment Status Discharge Diagnosis unsteadiness on feet Subjective Information Pt states she does not know if she has improved from therapy or not. She states she has not been very complaint with her HEP. Pt states she is content with being able to get herself dressed in the morning. Reported Pain Level Pain Score 0: Self Report Assessment PT Clinical Summary Rosa Quevedo presents to therapy today for her progress report following 7 visits of skilled therapy to treat her balance deficits and instability. Today she demonstrates no measurable improvements in her overall strength. She decreased worsening scores/times during the Tinetti, 5xSTS, and 2 min walk test. All scores place her at an increased risk for falls. Pt continues to report very low mobility at home with poor compliance with her HEP. Reinforced the importance frequency mobility to aid in preserving independence. Pt will be discharged from skilled therapy services at this time d/t poor progress in addition to poor compliance with her HEP and walking program. Pt is agreeable to this and states she knows the responsibility is on her. Plan of Care PT Services Indicated No Treatment Frequency and to be discharged Duration
== END 2022-08-28 14:05 | disposition home or self-care (01) ==
LOC: ANHGOSHPT 12:30
PROVIDERS: PCP Family Medicine; Visit Provider Family Medicine
DX: R26.81 Unsteadiness on feet (principal); M54.50 Low back pain, unspecified
CPT/HCPCS: 97110; 97112; 97161; 97530

== ENCOUNTER 2022-09-18 08:10 | Outpatient (CLI) | payer MEDICARE, SELFPAY ==
[2022-09-18 20:42] LABS: Alanine Aminotransferase 35 U/L (6-35); Albumin Level 3.5 g/dL (3.5-5.1); Alkaline Phosphatase 154 U/L (38-126); Anion Gap 3 mmol/L (8-16); Aspartate Amino Transferase 49 U/L (14-36); Bilirubin,Total 0.6 mg/dL (0.2-1.3); Blood Urea Nitrogen 16 mg/dL (7-17); Calcium 8.7 mg/dL (8.4-10.2); Carbon Dioxide 29 mmol/L (22-30); Chloride 107 mmol/L (98-107); Estimated Glomerular Filt Rate > 60; Glucose 70 mg/dL (65-110); Potassium 4.7 mmol/L (3.4-5.0); Sodium 139 mmol/L (137-145)
== END 2022-09-18 08:11 | disposition home or self-care (01) ==
LOC: ANHGOSHLAB 08:12
PROVIDERS: PCP Family Medicine; Visit Provider Family Medicine
DX: I10 Essential (primary) hypertension (principal); E78.5 Hyperlipidemia, unspecified; Z79.899 Other long term (current) drug therapy
CPT/HCPCS: 36415; 80053

== ENCOUNTER 2022-09-23 09:39 | Outpatient (CLI) | payer MEDICARE, SELFPAY ==
--- NOTE | ~2022-09-23 | MM_ITS ---
EXAMINATION: MM scrn tammie implant BI w ethan HISTORY: Screening mammogram TECHNIQUE: Craniocaudal and mediolateral oblique 3-D tomosynthesis images with implant displacement a nd synthetic 2-D images were generated. Craniocaudal and mediolateral oblique views of the breasts wi thout implant displacement were obtained using full field digital mammography. CAD analysis was submi tted and interpreted. COMPARISON: 05/24/2014 bilateral implant screening mammogram BREAST PARENCHYMAL COMPOSITION: There are scattered areas of fibroglandular density. FINDINGS: Status post bilateral augmentation mammoplasty. Interval placement of athletic monitor device in the left breast. There is no evidence of suspicious m ass, calcification, or architectural distortion to suggest malignancy in either breast. There has bee n no suspicious interval change. IMPRESSION: 1. No mammographic evidence of malignancy. 2. Recommend routine screening mammography in one year. BI-RADS Category 1: Negative Reviewed, dictated and finalized at location A. AL WELFARE CLERK
== END 2022-09-23 09:40 | disposition home or self-care (01) ==
LOC: ANHIMG 09:40
PROVIDERS: PCP Family Medicine; Visit Provider Family Medicine
DX: Z12.31 Encounter for screening mammogram for malignant neoplasm of breast (principal); Z98.82 Breast implant status
CPT/HCPCS: 77063; 77067

== ENCOUNTER → 2022-10-25 09:47 | Outpatient (CLI) | payer MEDICARE, SELFPAY ==
--- NOTE | ~2022-10-25 | MR_ITS ---
MRI of the brain Clinical History: Short-term memory loss Technique: Axial and sagittal T1-weighted images were acquired. These were followed by axial T2-weigh gin, diffusion weighted, gradient, and FLAIR images. COMPARISON: 01/30/2015 Findings: There is no acute infarct, intracranial hemorrhage, or mass lesion. There is chronic enceph alomalacia in the right frontal lobe with probable overlying right frontal craniotomy change. There i s moderate to severe chronic white matter disease throughout the periventricular white matter FLAIR i mages. Ventricles and subarachnoid spaces are mildly dilated. Orbits are unremarkable. Paranasal sinuses and mastoid air cells are clear. Major intracranial flow voids appear intact. Sagittal midline structures are intact. IMPRESSION: No acute abnormality seen. Encephalomalacia in the right frontal lobe with probable overlying craniotomy. Correlate with relevan t clinical/surgical history. Moderate to severe chronic microvascular ischemic change with mild generalized atrophy. Reviewed, dictated and finalized at [facility]. IMPRESSION: No acute abnormality seen. Encephalomalacia in the right frontal lobe with probable overlying craniotomy. Correlate with relevant clinical/surgical history. Moderate to severe chronic microvascular ischemic change with mild generalized atrophy.
== END ==
PROVIDERS: PCP Family Medicine; Visit Provider Student in an Organized Health Care Education/Training Program
DX: R41.3 Other amnesia (principal); G93.89 Other specified disorders of brain; G31.9 Degenerative disease of nervous system, unspecified
CPT/HCPCS: 70551

== ENCOUNTER 2022-10-25 10:48 | Outpatient (CLI) | payer MEDICARE, SELFPAY ==
[2022-10-25 20:23] LABS: Thyroid Stimulating Hormone 0.733 uIU/mL (0.465-4.680)
[2022-10-25 21:01] LABS: Folic Acid > 20.0 ng/mL (2.76->20)
== END 2022-10-25 10:49 | disposition home or self-care (01) ==
LOC: ANHGOSHLAB 10:50
PROVIDERS: PCP Family Medicine; Visit Provider Student in an Organized Health Care Education/Training Program
DX: R41.89 Other symptoms and signs involving cognitive functions and awareness (principal); R41.3 Other amnesia
CPT/HCPCS: 36415; 82607; 82746; 84443

== ENCOUNTER 2023-03-06 17:52 | Emergency (ER) | payer MEDICARE, SELFPAY ==
--- NOTE | ~2023-03-06 | CT_ITS ---
EXAMINATION: CT cervical spine wo con DATE: 03/06/2023 20:22 INDICATION: Neck pain after injury TECHNIQUE: Computed tomography (CT) of the cervical spine was performed without intravenous contrast. The dose-length product was 362 mGy-cm. Automated exposure control and iterative reconstruction tech nique were employed. COMPARISON: None FINDINGS: There is degenerative anterolisthesis at C4-5, C5-6 and C6-7 secondary to facet hypertrophy . Vertebral body heights are maintained. There is disc narrowing at all cervical spine levels. There are multiple metallic radiodensities in the posterior soft tissues as well as in the spinal canal at the T1 level, possibly shrapnel. There is a bone island and T2. There is advanced multilevel uncinate and facet hypertrophy. Odontoid process is normal. Craniovertebral junction is normal. No evidence f or perched facet. There is apical pleural thickening/scarring. There is carotid atherosclerosis. Ther e is a 2.5 cm low-density mass of the left thyroid gland. Recommend correlation with thyroid ultrasou nd on a nonemergent basis. IMPRESSION: 1. No acute abnormality of the cervical spine. 2: Severe cervical spondylosis. Reviewed, dictated and finalized at location A.
--- NOTE | ~2023-03-06 | CT_ITS ---
EXAMINATION: CT brain wo con DATE: 03/06/2023 20:22 INDICATION: Head injury. TECHNIQUE: Computed tomography (CT) of the head was performed without intravenous contrast. The dose- length product was 605.33 mGy-cm. Automated exposure control and iterative reconstruction technique w ere employed. COMPARISON: CT dated 02/08/2015 FINDINGS: There are chronic bilateral frontal lobe infarctions with encephalomalacia, right greater t milligan left. No ventriculomegaly or midline shift. There are scattered moderate periventricular and subc ortical white matter changes, most likely related to small vessel ischemic disease (microangiopathy). There is a right frontal craniotomy defect. Paranasal sinuses and mastoids are pneumatized. No acute hemorrhage, infarction, mass or mass effect. There is intracranial atherosclerosis. IMPRESSION: 1. No acute intracranial abnormality. 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 Reviewed, dictated and finalized at location A.
[2023-03-06 18:27] VITALS: BP 168/94; PULSE 71; RESP 18; TEMP 36.6; O2SAT 94
--- NOTE | 2023-03-06 20:25 | ED.FALL ---
HPI - Fall General Chief Complaint: Fall Stated Complaint: fall- lac to posterior head Time Seen by Provider: 03/06/23 19:59 Source: patient and family Mode of arrival: ambulatory Limitations: no limitations History of Present Illness HPI Narrative: This is a 82 year old female that presents to the ER after a fall today. Reports she lost her balance and fell backwards when bending down. Reports hitting her head. Denies loss of consciousness. Reports bleeding and pain to the area. Reports laceration to the back of the head. She is not up to date on tetanus. Denies vision changes, vomiting, numbness, weakness. Related Data Home Medications Medication Instructions Recorded Confirmed folic acid 1 mg tablet 1 mg PO DAILY 10/22/21 03/05/23 biukjabw-cvbc-lzud 8 mg-folic 400 1 tablet PO DAILY 10/22/21 03/05/23 mcg-K 50 mcg-lutein 300 mcg tablet (Centrum Silver Women) diphenhydramine 25 1 tablet PO HS 10/24/21 03/05/23 mg-acetaminophen 500 mg tablet (Tylenol PM Extra Strength) apixaban 2.5 mg tablet (Eliquis) 2.5 mg PO DAILY 02/19/22 03/05/23 lisinopril 40 mg tablet 40 mg PO DAILY 02/19/22 03/05/23 methotrexate (PF) 25 mg/0.4 mL 25 mg subcut WEEKLY 02/19/22 03/05/23 subcutaneous auto-injector omeprazole 40 mg capsule,delayed 40 mg PO DAILY 07/15/22 03/05/23 release tramadol 50 mg tablet 50 mg PO Q4H PRN Pain 08/20/22 03/05/23 certolizumab pegol 400 mg/2 mL 400 mg subcut ONCE 10/18/22 03/05/23 (200 mg/mL x2) subcutaneous syringe kit (Cimzia) donepezil 5 mg tablet 5 mg PO QHS 03/05/23 03/05/23 prednisone 2.5 mg tablet 5 mg PO BID 03/05/23 03/05/23 sulfasalazine 500 mg tablet 0.5 g PO Q6H 03/05/23 03/05/23 Allergies Allergy/AdvReac Type Severity Reaction Status Date / Time No Known Allergies Allergy Verified 03/05/23 11:32 Review of Systems Review of Systems: CONSTITUTIONAL: Denies fever EYES: Denies visual changes GASTROINTESTINAL: Denies vomiting SKIN: Reports laceration MUSCULOSKELETAL: Denies joint pain, or myalgia. NEUROLOGIC: Denies numbness, or weakness. All systems reviewed & are unremarkable except as noted in HPI and below PMFSH Past Medical History Medical History Anticoagulant long-term use Atrial fibrillation Chronic low back pain Chronic venous insufficiency of lower extremity COPD (chronic obstructive pulmonary disease) With CT demonstrating emphysema with mild bronchiectasis Dyslipidemia Esophageal stricture Essential (primary) hypertension GERD without esophagitis Hemorrhoid History of blood clots 2015 - RUE History of cerebral hemorrhage History of CVA (cerebrovascular accident) History of shingles History of skin cancer History of stroke Hyperlipidemia Hypokalemia Obstructive sleep apnea (~10/2020) Polysomnogram suggesting CPAP pressure of 13 with 3 L bleed in O2 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 H/O shoulder surgery (~1964) H/O Spinal surgery (~1968) spinal tumor removed H/O: hysterectomy (~1974) History of appendectomy (~1949) History of esophageal dilatation 10/2021, 04/2021 History of esophagogastroduodenoscopy (EGD) (~05/2020) History of hemorrhoidectomy 05/08/2021 History of hemorrhoidectomy History of knee replacement Right History of umbilical hernia repair (10/2020) Family History Family History Father Family history of Alzheimer's disease Hypertension
[2023-03-06] MEDS: TETANUS,DIPHTHERIA,AC PERTUSSIS ADULT (0.5 ML) BOOSTRIX IM (20:38)
[2023-03-06 21:45] VITALS: BP 155/89; PULSE 75; RESP 16; O2SAT 97
== END 2023-03-06 21:45 | disposition home or self-care (01) ==
PROVIDERS: Emergency Provider Physician Assistant; PCP Family Medicine
DX: S01.01XA Laceration without foreign body of scalp, initial encounter (principal); Z23 Encounter for immunization; I48.91 Unspecified atrial fibrillation; I87.2 Venous insufficiency (chronic) (peripheral); I10 Essential (primary) hypertension; J44.9 Chronic obstructive pulmonary disease, unspecified; E78.5 Hyperlipidemia, unspecified; E55.9 Vitamin D deficiency, unspecified; K21.9 Gastro-esophageal reflux disease without esophagitis; G47.33 Obstructive sleep apnea (adult) (pediatric); M85.80 Other specified disorders of bone density and structure, unspecified site; M06.9 Rheumatoid arthritis, unspecified; M35.3 Polymyalgia rheumatica; Z98.61 Coronary angioplasty status; Z96.651 Presence of right artificial knee joint; Z85.828 Personal history of other malignant neoplasm of skin; Z86.711 Personal history of pulmonary embolism; Z86.73 Personal history of transient ischemic attack (TIA), and cerebral infarction without residual deficits; Z90.710 Acquired absence of both cervix and uterus; Z79.01 Long term (current) use of anticoagulants; M47.812 Spondylosis without myelopathy or radiculopathy, cervical region; G93.89 Other specified disorders of brain; W18.39XA Other fall on same level, initial encounter
CPT/HCPCS: 70450; 72125; 90471; 90715; 99284

== ENCOUNTER → 2023-03-20 09:15 | Outpatient (CLI) | payer MEDICARE, SELFPAY ==
--- NOTE | ~2023-03-20 | US_ITS ---
EXAMINATION: US thyroid DATE: 03/20/2023 09:35 INDICATION: Thyroid nodule. TECHNIQUE: Multiple ultrasound images of the thyroid were obtained. COMPARISON: Ultrasound 02/22/2022, 03/28/17 FINDINGS: The right thyroid lobe measures 4.1 x 2.7 x 2.0 cm. The left thyroid lobe measures 3.5 x 2.7 x 2.1 c m. In the right thyroid lobe, there is a 19 mm solid, hypoechoic, wider than tall nodule with lobula gin margin without echogenic foci (TI-RADS TR4), stable from 03/28/17. In the right thyroid lobe, ther e is a 1.2 cm mixed cystic and solid, hypoechoic, wider than tall nodule with smooth margin without e chogenic foci (TR3). In the left thyroid lobe, there is a 3.5 cm solid, hypoechoic, wider than tall n odule with smooth margin without echogenic foci (TR4), stable from 03/28/17. Biopsy on 07/02/22 was be nign. In the left thyroid lobe, there is a 2.4 cm mixed cystic and solid, hypoechoic, wider than tall nodule with smooth margin without echogenic foci (TR3), stable from 02/22/22. IMPRESSION: 1. Stable multinodular goiter. Reviewed, dictated and finalized at location A.
== END ==
PROVIDERS: PCP Family Medicine; Visit Provider Internal Medicine Endocrinology, Diabetes & Metabolism
DX: E04.2 Nontoxic multinodular goiter (principal)
CPT/HCPCS: 76536

== ENCOUNTER 2023-07-23 08:33 | Outpatient (CLI) | payer MEDICARE, SELFPAY ==
[2023-07-23 12:40] LABS: Basophils Absolute Auto 0.1 K/mm3 (0.0-0.1); Basophils Percent Auto 0.6 % (0.2-1.2); Eosinophils Absolute Auto 0.1 K/mm3 (0-0.3); Eosinophils Percent Auto 1.6 % (0-4.4); Hematocrit 47.1 % (37.0-47.0); Hemoglobin 14.6 g/dL (12.0-15.0); Immature Granulocyte Absolute 0.01 K/mm3 (0.00-0.031); Immature Granulocyte Percent A 0.1 % (0-0.5); Lymphocytes Absolute Auto 3.53 K/mm3 (0.9-3.2); Lymphocytes Percent Auto 43.3 % (18.3-44.2); Mean Corpuscular Hemoglobin 31.3 pg (26-34); Mean Corpuscular Volume 100.9 fl (80-100); Mean Platelet Volume 11.4 fl (7.4-10.4); Monocytes Absolute Auto 0.5 K/mm3 (0.1-0.6); Monocytes Percent Auto 5.5 % (2.6-8.5); Neutrophils Percent Auto 48.9 % (45.5-73.1); Platelet Count Result 118 k/mm3 (150-375); Red Blood Count 4.67 M/mm3 (4.2-5.4); Red Cell Distribution Width 14.9 % (11.5-14.5); White Blood Count 8.2 K/mm3 (4.5-10.0)
[2023-07-23 12:54] LABS: Alanine Aminotransferase 43 U/L (6-35); Albumin Level 3.9 g/dL (3.5-5.1); Alkaline Phosphatase 136 U/L (38-126); Anion Gap 6 mmol/L (8-16); Aspartate Amino Transferase 79 U/L (14-36); Bilirubin,Total 1.1 mg/dL (0.2-1.3); Blood Urea Nitrogen 18 mg/dL (7-17); Carbon Dioxide 30 mmol/L (22-30); Chloride 105 mmol/L (98-107); Cholesterol 176 mg/dL (0-200); Estimated Glomerular Filt Rate > 60; Glucose 79 mg/dL (65-110); HDL Direct 74 mg/dL; Potassium 4.4 mmol/L (3.4-5.0); Sodium 141 mmol/L (137-145); Triglycerides 148 mg/dL (<150)
[2023-07-23 13:08] LABS: LDL Cholesterol Direct 61 mg/dL
[2023-07-23 13:17] LABS: Vitamin D 25 Hydroxy 29.3 ng/mL
[2023-07-23 13:26] LABS: Hemoglobin A1C 6.7 % (<5.7)
[2023-07-23 13:34] LABS: Thyroid Stimulating Hormone Reflex 0.881 uIU/mL (0.465-4.68)
== END 2023-07-23 08:34 | disposition home or self-care (01) ==
PROVIDERS: PCP Family Medicine; Visit Provider Family Medicine
DX: M06.9 Rheumatoid arthritis, unspecified (principal); I10 Essential (primary) hypertension; R73.9 Hyperglycemia, unspecified; E78.5 Hyperlipidemia, unspecified; E53.8 Deficiency of other specified B group vitamins; E55.9 Vitamin D deficiency, unspecified
CPT/HCPCS: 36415; 80053; 80061; 82306; 82607; 83036; 84443; 85025

== ENCOUNTER 2023-07-25 09:25 | Outpatient (CLI) | payer MEDICARE, SELFPAY ==
--- NOTE | ~2023-07-25 | US_ITS ---
EXAMINATION: US carotid duplex BI DATE: 07/25/2023 11:04 INDICATION: Personal history of transient ischemic attack. TECHNIQUE: Grayscale, color Doppler, and pulsed Doppler images of the cervical carotid arteries were obtained. The degree of vessel stenosis is placed in one of the following categories: normal, <50%, 5 0-69%, >=70% but less than near-occlusion, near-occlusion, or total occlusion. Note that percent sten osis relative to normal distal artery lumen diameter is indirectly measured from velocity measurement s as described by Clark, et al. Radiology 2003; 229:340-346. COMPARISON: Ultrasound 01/30/2015 FINDINGS: RIGHT: The right common carotid artery (CCA) peak systolic velocity (PSV) is 46 cm/s. The right internal car otid artery (ICA) PSV is 55 cm/s. The right ICA end-diastolic velocity (EDV) is 10 cm/s. The right IC A/CCA PSV ratio is 1.2. Grayscale and color Doppler images yield an estimate of <50% diameter reducti on from plaque in the ICA. There is antegrade flow in the right vertebral artery. LEFT: The left CCA PSV is 48 cm/s. The left ICA PSV is 68 cm/s. The left ICA EDV is 16 cm/s. The left ICA/C CA PSV ratio is 1.4. Grayscale and color Doppler images yield an estimate of <50% diameter reduction from plaque in the ICA. There is antegrade flow in the left vertebral artery. IMPRESSION: 1. <50% stenosis in the right internal carotid artery. 2. <50% stenosis in the left internal carotid artery. Reviewed, dictated and finalized at location A. EY COOK
== END 2023-07-25 09:26 | disposition home or self-care (01) ==
LOC: ANHIMG 09:29
PROVIDERS: PCP Family Medicine; Visit Provider Family Medicine
DX: I65.23 Occlusion and stenosis of bilateral carotid arteries (principal); Z86.73 Personal history of transient ischemic attack (TIA), and cerebral infarction without residual deficits
CPT/HCPCS: 93880

== ENCOUNTER 2023-10-27 01:29 | Day surgery (SDC) | payer MEDICARE, SELFPAY ==
[2023-10-20 12:41] VITALS: BMI 28.3
[2023-10-27 13:11] VITALS: BP 174/100; PULSE 79; RESP 18; TEMP 35.8; O2SAT 99
[2023-10-27] MEDS: LACTATED RINGERS 1,000 ML 150 ML IV CONT (13:21)
--- NOTE | 2023-10-27 13:29 | WPDHPUPDATE1 ---
History and Physical Update Update Date/Time: 10/27/23 13:29 History and Physical has been reviewed, including an updated exam of the patient. There are NO changes in the patient's condition. Risks, benefits, and alternatives have been discussed and questions answered. Patient agrees to proceed with procedure.
--- NOTE | 2023-10-27 13:30 | WPDANESEPPF ---
Anes - Initial Pre Proc Eval Procedure: Operation Date: 10/27/23 14:00 Proposed Procedures p Esophagogastroduodenoscopy - Ray Madrid MD Date/Time: 10/27/23 13:30 Surgeon: Ray Madrid MD Pre Op Diagnosis: GERD,Other Dysphagia Patient Data Age: 83 Gender: F Height: 1.57 m Weight: 70.9 kg Last Vital Signs Temp 96.4 F L 10/27/23 13:11 Pulse 79 10/27/23 13:11 Resp 18 10/27/23 13:11 BP 174/100 H 10/27/23 13:11 Pulse Ox 99 10/27/23 13:11 O2 Del Method Room Air 10/27/23 13:11 Allergies Allergy/AdvReac Type Severity Reaction Status Date / Time No Known Allergies Allergy Verified 10/27/23 13:07 Home Medications Medication Instructions Recorded Confirmed Type folic acid 1 mg tablet 1 mg PO DAILY 10/22/21 10/27/23 History diphenhydramine 25 1 tablet PO HS 10/24/21 10/27/23 History mg-acetaminophen 500 mg tablet (Tylenol PM Extra Strength) lisinopril 40 mg tablet 40 mg PO DAILY 02/19/22 10/27/23 History prednisone 2.5 mg tablet 5 mg PO BID 03/05/23 10/27/23 History certolizumab pegol 400 mg/2 mL 400 mg subcut MONTHLY 07/21/23 10/27/23 History (200 mg/mL x2) subcutaneous syringe kit (Cimzia) tramadol 50 mg tablet 100 mg PO TID PRN Pain 07/21/23 10/27/23 History metoprolol succinate 25 mg 25 mg PO DAILY #90 tabs 08/13/23 10/27/23 Rx tablet,extended release 24 hr acetaminophen 500 mg tablet 500 mg PO TID PRN Pain 10/01/23 10/27/23 History (Tylenol Extra Strength) omeprazole 40 mg capsule,delayed 40 mg PO DAILY #90 caps 10/01/23 10/27/23 Rx release Estro Aid 1 cap PO DAILY 10/20/23 10/27/23 History atorvastatin 40 mg tablet 40 mg PO HS 10/20/23 10/27/23 History methotrexate sodium (PF) 25 mg/mL 72.5 mg PO WEEKLY 10/20/23 10/27/23 History injection solution dqkxapaerykd-tazfeypz-biclpb tablet 1 tablet PO DAILY 10/20/23 10/27/23 History Patient hx anesthesia problems: none Family hx anesthesia problems: none Results Review: All pre-operative results and documents have been reviewed as part of the pre-operative evaluation. [facility] Past Medical History Medical History (Updated 10/01/23 @ 15:42 by Nasrin Lynn, IVAN) Anticoagulant long-term use Atrial fibrillation Chronic low back pain Chronic venous insufficiency of lower extremity COPD (chronic obstructive pulmonary disease) With CT demonstrating emphysema with mild bronchiectasis Dyslipidemia Esophageal dysphagia Esophageal stricture (~10/2021) Essential (primary) hypertension GERD (gastroesophageal reflux disease) GERD without esophagitis Hemorrhoid History of blood clots 2015 - RUE History of cerebral hemorrhage History of CVA (cerebrovascular accident) History of esophageal stricture History of shingles History of skin cancer History of stroke History of TIA (transient ischemic attack) Hyperlipidemia Hypokalemia Obstructive sleep apnea (~10/2020) Polysomnogram suggesting CPAP pressure of 13 with 3 L bleed in O2 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 H/O shoulder surgery (~1965) H/O Spinal surgery (~1969) spinal tumor removed H/O: hysterectomy (~1974) History of appendectomy (~1949) History of esophageal dilatation 10/2021, 04/2021 History of esophagogastroduodenoscopy (EGD) (~05/2020) History of hemorrhoidectomy 05/08/2021 History of hemorrhoidectomy History of knee replacement Right History of umbilical hernia repair (10/2020) Family History Family History (Reviewed 10/01/23 @ 15:17 by Yudelka
[2023-10-27 13:44] VITALS: BP 158/84; PULSE 72; RESP 19; O2SAT 99
[2023-10-27 13:54] VITALS: BP 149/76; PULSE 66; RESP 17; O2SAT 100
[2023-10-27 14:04] VITALS: BP 144/80; PULSE 65; RESP 19; O2SAT 99
== END 2023-10-27 14:12 | disposition home or self-care (01) ==
PROVIDERS: PCP Family Medicine; Visit Provider Internal Medicine Gastroenterology
PROC: 0DJ08ZZ Inspection of Upper Intestinal Tract, Via Natural or Artificial Opening Endoscopic (ICD-10-PCS; CPT 43235; principal; 2023-10-27 14:00)
DX: R13.19 Other dysphagia (principal); K22.2 Esophageal obstruction; K21.9 Gastro-esophageal reflux disease without esophagitis; I10 Essential (primary) hypertension; E78.5 Hyperlipidemia, unspecified; E87.6 Hypokalemia; G47.33 Obstructive sleep apnea (adult) (pediatric); E55.9 Vitamin D deficiency, unspecified; G89.29 Other chronic pain; M54.50 Low back pain, unspecified; J44.9 Chronic obstructive pulmonary disease, unspecified; E66.9 Obesity, unspecified; Z68.26 Body mass index [BMI] 26.0-26.9, adult; Z79.52 Long term (current) use of systemic steroids; Z98.890 Other specified postprocedural states; Z98.1 Arthrodesis status; Z85.828 Personal history of other malignant neoplasm of skin; Z86.79 Personal history of other diseases of the circulatory system; Z86.73 Personal history of transient ischemic attack (TIA), and cerebral infarction without residual deficits; Z82.49 Family history of ischemic heart disease and other diseases of the circulatory system; Z79.891 Long term (current) use of opiate analgesic
CPT/HCPCS: 43249; C1726; J2704; J7120

== ENCOUNTER 2023-12-08 10:15 | Outpatient (CLI) | payer MEDICARE, SELFPAY ==
--- NOTE | ~2023-12-08 | MM_ITS ---
EXAMINATION: MM scrn tammie implant BI w ethan HISTORY: Screening mammogram TECHNIQUE: Craniocaudal and mediolateral oblique 3-D tomosynthesis images with implant displacement a nd synthetic 2-D images were generated. Craniocaudal and mediolateral oblique views of the breasts wi thout implant displacement were obtained using full field digital mammography. CAD analysis was submi tted and interpreted. COMPARISON: September 23, 2022, May 24, 2014 bilateral implants screening mammogram examinations BREAST PARENCHYMAL COMPOSITION: There are scattered areas of fibroglandular density. FINDINGS: Status post bilateral augmentation mammoplasty. Electronic monitoring device in the left breast is again noted. Scattered bilateral benign calcifications are again present. There is no evidence of reproducible suspicious mass, calcification, or architectural distortion to s uggest malignancy in either breast. There has been no suspicious interval change. IMPRESSION: 1. No mammographic evidence of malignancy. 2. Recommend routine screening mammography in one year. BI-RADS Category 2: Benign finding(s). Reviewed, dictated and finalized at location A.
== END 2023-12-08 10:16 | disposition home or self-care (01) ==
LOC: ANHIMG 10:16
PROVIDERS: PCP Family Medicine; Visit Provider Family Medicine
DX: Z12.31 Encounter for screening mammogram for malignant neoplasm of breast (principal)
CPT/HCPCS: 77063; 77067

== ENCOUNTER 2024-02-05 08:29 | Outpatient (CLI) | payer MEDICARE, SELFPAY ==
[2024-02-05 19:01] LABS: Alanine Aminotransferase 32 U/L (6-35); Albumin Level 3.8 g/dL (3.5-5.1); Alkaline Phosphatase 169 U/L (38-126); Anion Gap 4 mmol/L (4-12); Aspartate Amino Transferase 52 U/L (14-36); Bilirubin,Total 0.7 mg/dL (0.2-1.3); Blood Urea Nitrogen 13 mg/dL (7-17); Calcium 9.7 mg/dL (8.4-10.2); Carbon Dioxide 32 mmol/L (22-30); Chloride 107 mmol/L (98-107); Cholesterol 151 mg/dL (0-200); Estimated Glomerular Filt Rate > 60; Glucose 73 mg/dL (65-110); HDL Direct 63 mg/dL; Potassium 4.6 mmol/L (3.4-5.0); Sodium 143 mmol/L (137-145); Triglycerides 133 mg/dL (<150)
[2024-02-05 19:03] LABS: Hematocrit 43.8 % (37.0-47.0); Mean Corpuscular Hemoglobin 31.9 pg (26-34); Mean Corpuscular Volume 99.8 fl (80-100); Mean Platelet Volume 11.2 fl (7.4-10.4); Platelet Count Result 139 k/mm3 (150-375); Red Blood Count 4.39 M/mm3 (4.2-5.4); Red Cell Distribution Width 15.9 % (11.5-14.5); White Blood Count 6.6 K/mm3 (4.5-10.0)
[2024-02-05 19:12] LABS: LDL Cholesterol Direct 63 mg/dL
[2024-02-05 19:50] LABS: Vitamin D 25 Hydroxy 45.5 ng/mL
== END 2024-02-05 08:30 | disposition home or self-care (01) ==
PROVIDERS: PCP Family Medicine; Visit Provider Nurse Practitioner
DX: E78.5 Hyperlipidemia, unspecified (principal); I10 Essential (primary) hypertension; E55.9 Vitamin D deficiency, unspecified; E04.2 Nontoxic multinodular goiter; I48.91 Unspecified atrial fibrillation
CPT/HCPCS: 36415; 80053; 80061; 82306; 84443; 85027

== ENCOUNTER 2024-03-18 10:05 | Outpatient (CLI) | payer MEDICARE, SELFPAY ==
--- NOTE | ~2024-03-18 | CT_ITS ---
EXAMINATION: CT soft tissue neck w con DATE: 03/18/2024 10:40 INDICATION: Dysphagia. Goiter. Tracheal and esophageal compression. TECHNIQUE: Computed tomography (CT) of the neck was performed with 75 mL Omnipaque-350 intravenous co ntrast. Automated exposure control and iterative reconstruction technique were employed. The dose-radha gth product was 405.71 mGy-cm. COMPARISON: CT cervical spine 03/06/2023, thyroid ultrasound 03/20/2023, 03/28/2017 FINDINGS: There is an old infarct in right frontal lobe of the brain. There are likely changes of ocu lar lens replacement surgeries. There is a multinodular goiter with the largest measuring 3.2 cm on t he left. No significant mass effect on the trachea or esophagus. There are no pathologically enlarged lymph nodes. There is plaque in the proximal internal carotid arteries with 0% stenosis relative to normal distal artery lumen diameters. The pharynx and larynx are normal. There is severe cervical spo ndylosis. IMPRESSION: 1. Stable multinodular goiter. 2. Old infarct in right frontal lobe of the brain. Reviewed, dictated and finalized at location A.
[2024-03-18 10:32] LABS: Estimated Glomerular Filt Rate > 60
== END 2024-03-18 10:06 | disposition home or self-care (01) ==
PROVIDERS: PCP Family Medicine; Visit Provider Internal Medicine Endocrinology, Diabetes & Metabolism
DX: R13.10 Dysphagia, unspecified (principal); E04.2 Nontoxic multinodular goiter
CPT/HCPCS: 70491; Q9967

== ENCOUNTER 2024-10-10 13:40 | Emergency (ER) | payer MEDICARE, SELFPAY ==
[2024-10-10] VITALS (14 sets, daily range): BP systolic 163–203; BP diastolic 93–111; PULSE 73–83; RESP 14–32; TEMP 36.6; O2SAT 94–97
--- NOTE | 2024-10-10 14:23 | ED.LOWEXIN ---
HPI - Extremity Injury (Lower) General Chief Complaint: Extremity Injury, Lower Stated Complaint: GLF after LLE gave out L hip Time Seen by Provider: 10/10/24 14:06 Source: patient and family Mode of arrival: wheelchair Limitations: no limitations History of Present Illness HPI Narrative: This is an 84-year-old female that presents to the emergency department for left hip pain. Reports her leg gave out on her and she fell onto her left side. She did not hit her head or lose consciousness. She does not take any blood thinners. Reports she is unable to ambulate or bear weight due to pain. Denies decreased range of motion or numbness. Related Data Home Medications ?Medication ?Instructions ?Recorded ?Confirmed ?Last Taken ?Type diphenhydramine 25 1 tablet PO HS 10/24/21 03/10/24 10/26/23 History mg-acetaminophen 500 mg tablet (Tylenol PM Extra Strength) prednisone 2.5 mg tablet 5 mg PO BID 03/05/23 03/10/24 10/27/23 08:00 History tramadol 50 mg tablet 100 mg PO TID PRN Pain 07/21/23 03/10/24 10/27/23 08:00 History acetaminophen 500 mg tablet 500 mg PO TID PRN Pain 10/01/23 03/10/24 10/26/23 History (Tylenol Extra Strength) yddsjalclabp-xrkguvuc-hwdpsy tablet 1 tablet PO DAILY 10/20/23 03/10/24 10/26/23 History azathioprine 50 mg tablet mg PO DAILY 03/10/24 03/10/24 Unknown History Allergies Allergy/AdvReac Type Severity Reaction Status Date / Time No Known Allergies Allergy Verified 03/10/24 08:55 Review of Systems Review of Systems: CONSTITUTIONAL: Denies fever MUSCULOSKELETAL: Reports joint pain and myalgia. Denies back pain NEUROLOGIC: Denies numbness, or weakness. All systems reviewed & are unremarkable except as noted in HPI and below PMFSH Past Medical History Medical History Anticoagulant long-term use Atrial fibrillation Chronic low back pain Chronic venous insufficiency of lower extremity COPD (chronic obstructive pulmonary disease) With CT demonstrating emphysema with mild bronchiectasis Dyslipidemia Esophageal dysphagia Esophageal stricture (~10/2021) Essential (primary) hypertension GERD (gastroesophageal reflux disease) GERD without esophagitis Hemorrhoid History of blood clots 2015 - RUE History of cerebral hemorrhage History of CVA (cerebrovascular accident) History of esophageal stricture History of shingles History of skin cancer History of stroke History of TIA (transient ischemic attack) Hyperlipidemia Hypokalemia Obstructive sleep apnea (~10/2020) Polysomnogram suggesting CPAP pressure of 13 with 3 L bleed in O2 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 H/O shoulder surgery (~1964) H/O Spinal surgery (~1968) spinal tumor removed H/O: hysterectomy (~1974) History of appendectomy (~194) History of esophageal dilatation 10/2021, 04/2021 History of esophagogastroduodenoscopy (EGD) (~05/2020) History of hemorrhoidectomy 05/08/2021 History of hemorrhoidectomy History of knee replacement Right History of umbilical hernia repair (10/2020) Family History Family History Father Family history of Alzheimer's disease Hypertension Hyperlipidemia Mother Hypertension Other Diabetes mellitus Nervous disorder Hypertension Heart disease Other Cerebrovascular accident Family history of arthritis Family history of thyroid disease Social History Social History Social History: She has been 3 times. Her 1st after 40 years of marriage. Her 2nd after 5 years . She has been to her current has been for 12 years. She has 3 children who are healthy. She is a lifelong nonsmoker and does not drink alcohol. Smoking status: Never smoker Second hand tobacco smoke exposure: No Alcohol intake: current Substance use: current Substance use type: does not use Lack of Transportation: No Lack of Food: Never True Current Housing: I Have Housing Concerned About Future Housing: No Difficulty Paying Gas/Electric Bills: No Difficulty Paying for Meds: No Currently Unemployed: No Education: Bachelor's Degree Difficulty w/ Childcare or Family Care: No Living arrangements: with family Occupation/Education: retired Gender identity (if verbalized by the patient): Female Sexual Orientation (if Verbalized by the Patient): Straight or Heterosexual Spiritual care concerns: No Agree to blood products: Yes Exam Narrative: GENERAL: Elderly, well-nourished, and in no acute distress. HEAD: Normocephalic, atraumatic. EYES: PERRLA and EOMI. ENT: Nares clear, no rhinorrhea or epistaxis. Mucous membranes moist. Oropharynx without tonsillar hypertrophy exudate or other lesions. NECK: Supple. No adenopathy or masses. CHEST: Clear to auscultation. No respiratory distress. No wheezes rales or rhonchi HEART: Regular rate and rhythm. No murmur heard. Normal peripheral pulses. ABDOMEN: Soft, nontender, nondistended, normal active bowel sounds. EXTREMITIES: Normal range of motion. No edema. Left leg is shortened. Normal peripheral pulses SKIN: Warm, dry, no rash. NEURO: No focal deficits. Alert and oriented x3. CN II-XII grossly intact PSYCH: Normal mood and affect Course Course Emergency Course: patient and family updated on workup and agree with plan of care. Patient ambulatory in the ER Vital Signs Vital signs: Vital Signs Temperature 97.8 F 10/10/24 13:42 Pulse Rate 78 10/10/24 13:42 Respiratory Rate 16 10/10/24 13:42 Blood Pressure 203/95 H 10/10/24 13:42 Oxygen Delivery Room Air 10/10/24 13:42 Temperature 97.8 F 10/10/24 13:42 Pulse Rate 76 10/10/24 19:06 Respiratory Rate 19 10/10/24 19:06 Blood Pressure 171/94 H 10/10/24 19:06 Pulse Oximetry 96 10/10/24 19:06 Oxygen Delivery Room Air 10/10/24 13:42 MDM - Extremity Injury (Lower) MDM Narrative Medical decision making narrative: Patient presents to the emergency department after a fall today with left hip pain. She denies hitting her head or loss of consciousness. She is neurologically intact. Left hip/pelvic x-ray without acute osseous abnormalities. Chest x-ray shows widening of the mediastinum which may be positional. CT evaluation advised. CTA chest abdomen pelvis obtained for further evaluation. No dissection or aneurysm. Multiple areas of ground-glass opacities in the lungs. Left thyroid nodule. Fat infiltration of the liver. No acute abdominal process. Cholelithiasis. Patient and family updated on workup and agree with plan of care. Patient ambulatory in the ER. She is to follow up with PCP. She was given warnings to return to the ER Differential Diagnosis Differential diagnosis: Likely fracture of hip and other (contusion) Lab Data Attestation: I reviewed the patient's lab results. 10/10/24 14:27 10/10/24 14:27 Labs: Lab Results 10/10/24 Range/Units 14:27 WBC 7.4 (4.5-10.0) K/mm3 RBC 4.74 (4.2-5.4) M/mm3 Hgb 14.4 (12.0-15.0) g/dL Hct 44.9 (37.0-47.0) % MCV 94.7 (80-100) fl MCH 30.4 (26-34) pg MCHC 32.1 (32-36) g/dl RDW 15.5 H (11.5-14.5) % Plt Count 117 L (150-375) k/mm3 MPV 11.9 H (7.4-10.4) fl Immature Gran % (Auto) 0.3 (0-0.5) % Neut % (Auto) 79.1 H (45.5-73.1) % Lymph % (Auto) 12.1 L (18.3-44.2) % [place] % (Auto) 7.7 (2.6-8.5) % Eos % (Auto) 0.5 (0-4.4) % Baso % (Auto) 0.3 (0.2-1.2) % Lymph # (Auto) 0.90 (0.9-3.2) K/mm3 [place] # (Auto) 0.6 (0.1-0.6) K/mm3 Eos # (Auto) 0.0 (0-0.3) K/mm3 Baso # (Auto) 0.0 (0.0-0.1) K/mm3 Abs Immat Gran (auto) 0.02 (0.00-0.031) K/mm3 Absolute Neuts (auto) 5.9 (1.3-6.7) K/mm3 Absolute Nucleated RBC 0.000 (0.0-0.012) K/mm3 Nucleated RBC % 0.0 (0.0-0.2) % % Immature Plt Fraction 5.6 (0.9-11.2) % Sodium 140 (137-145) mmol/L Potassium 4.6 (3.4-5.0) mmol/L Chloride 105 (98-107) mmol/L Carbon Dioxide 27 (22-30) mmol/L Anion Gap 8 (4-12) mmol/L BUN 19 H (7-17) mg/dL Creatinine 0.56 L (0.7-1.0) mg/dL Estim Creat Clear Calc Not Reportable Estimated GFR > 60 (59 - ) Glucose 142 H (65-110) mg/dL Calcium 9.7 (8.4-10.2) mg/dL Total Bilirubin 1.0 (0.2-1.3) mg/dL AST 71 H (14-36) U/L ALT 59 H (6-35) U/L Alkaline Phosphatase 157 H (38-126) U/L Total Protein 6.0 L (6.3-8.2) g/dL Albumin 3.3 L (3.5-5.1) g/dL Imaging Data Radiologist's impression: ITS Impressions Hip/Pelvis X-Ray 10/10/24 14:43 IMPRESSION: No acute osseous abnormality pelvis and left hip. Chest X-Ray 10/10/24 14:45 IMPRESSION: Widening of the mediastinum which may be partly positional. CT evaluation advised. Otherwise, No acute cardiopulmonary pathology. Chest/Abdomen/Pelvis CTA 10/10/24 16:47 IMPRESSION: CHEST: 1. No definite dissection or aneurysm seen in the aorta. Ascending aorta measures 4 seen. 2. Multiple areas of groundglass appearance which may indicate atelectasis versus pneumonia versus poor inspiration. Clinical correlation advised. 3. Left thyroid nodule. Ultrasound evaluation advised. ABDOMEN/PELVIS: 1. No evidence of aortic dissection seen. Upper abdominal aorta measures 2.8 cm. 2. Fat infiltration of the liver. Lobulated outline is seen which may indicate cirrhosis. Clinical correlation advised. 3. No acute abdominal process. 4. Cholelithiasis. ECG Data EKG #1: ECG completion date: 10/10/24 EKG Interpretation: normal rate, sinus rhythm, no ST changes and normal QT Critical Care Time Critical Care Time Critical Care Time: No Discharge Plan Discharge Clinical Impression: Hepatic steatosis, Thyroid nodule Fall Qualifiers: Encounter type: initial encounter Qualified Code(s): W19.XXXA - Unspecified fall, initial encounter Contusion of hip Qualifiers: Encounter type: initial encounter Laterality: left Qualified Code(s): S70.02XA - Contusion of left hip, initial encounter Pneumonia Qualifiers: Pneumonia type: due to unspecified organism Laterality: bilateral Lung location: lower lobe of lung Qualified Code(s): J18.9 - Pneumonia, unspecified organism Patient Disposition: Home, Self-Care Condition: Stable Instructions: Antibiotic Form, Community Acquired Pneumonia (ED), Thyroid Nodules (ED), Non-Alcoholic Fatty Liver Disease (ED), Contusion in Adults (ED) Additional Instructions: Return to the emergency department if you experience fever, chest pain, shortness of breath, abdominal pain with nausea and vomiting, weakness, numbness, or any other symptoms that are concerning to you. Rest. Ice to the area. Kdya-cut-lvxtqqs pain medication as needed Follow up with your primary care doctor Patient Language: Hebrew Prescriptions: No Action acetaminophen [Tylenol Extra Strength] 500 mg tablet 500 mg PO TID PRN (Reason: Pain) Patient Comments: TAKES WITH TRAMADOL TID FOR PAIN omeprazole 40 mg capsule,delayed release(DR/EC) 40 mg PO DAILY Qty: 90 3RF prednisone 2.5 mg tablet 5 mg PO BID azathioprine 50 mg tablet PO DAILY diphenhydramine-acetaminophen [Tylenol PM Extra Strength] 25-500 mg Tablet 1 tablet PO HS tramadol 50 mg tablet 100 mg PO TID PRN (Reason: Pain) Centrum Silver Tablet 1 tablet PO DAILY metoprolol succinate 25 mg tablet extended release 24 hr 25 mg PO DAILY Qty: 90 1RF lisinopril 40 mg tablet 40 mg PO DAILY Qty: 90 1RF azithromycin [Zithromax Z-Ethan] 250 mg tablet See Rx Instructions PO .COMPLEX Qty: 6 0RF Rx Instructions: For 250 mg dose pack: take 500 mg today (day 1), then 250 mg for 4 days (days 2-5) PO methylprednisolone [Medrol (Ethan)] 4 mg tablets,dose pack See Rx Instructions PO PER PKG DIR Qty: 21 0RF Rx Instructions: PO PER PKG DIR albuterol sulfate 90 mcg/actuation HFA aerosol inhaler 2 puff inhalation Q4H PRN (Reason: shortness of breath or wheezing) Qty: 8.5 0RF atorvastatin 40 mg tablet 40 mg PO HS Qty: 90 1RF Follow-up/Referrals: Gino Han MD [Primary Care Provider] -
[2024-10-10 14:36] LABS: Basophils Percent Auto 0.3 % (0.2-1.2); Eosinophils Percent Auto 0.5 % (0-4.4); Hematocrit 44.9 % (37.0-47.0); Hemoglobin 14.4 g/dL (12.0-15.0); Immature Granulocyte Absolute 0.02 K/mm3 (0.00-0.031); Immature Granulocyte Percent A 0.3 % (0-0.5); Immature Platelet Fraction Pct 5.6 % (0.9-11.2); Lymphocytes Percent Auto 12.1 % (18.3-44.2); Mean Corpuscular HGB Conc 32.1 g/dl (32-36); Mean Corpuscular Hemoglobin 30.4 pg (26-34); Mean Corpuscular Volume 94.7 fl (80-100); Mean Platelet Volume 11.9 fl (7.4-10.4); Monocytes Absolute Auto 0.6 K/mm3 (0.1-0.6); Monocytes Percent Auto 7.7 % (2.6-8.5); Neutrophils Absolute Auto 5.9 K/mm3 (1.3-6.7); Neutrophils Percent Auto 79.1 % (45.5-73.1); Platelet Count Result 117 k/mm3 (150-375); Red Blood Count 4.74 M/mm3 (4.2-5.4); Red Cell Distribution Width 15.5 % (11.5-14.5); White Blood Count 7.4 K/mm3 (4.5-10.0)
[2024-10-10] MEDS: MORPHINE SULFATE (*CRX) 4 MG/ML INJ IV PUSH (14:42)
[2024-10-10] MEDS: ONDANSETRON INJ 4 MG/2 ML VIAL IV PUSH (14:42)
[2024-10-10 14:48] LABS: Alanine Aminotransferase 59 U/L (6-35); Albumin Level 3.3 g/dL (3.5-5.1); Alkaline Phosphatase 157 U/L (38-126); Anion Gap 8 mmol/L (4-12); Aspartate Amino Transferase 71 U/L (14-36); Blood Urea Nitrogen 19 mg/dL (7-17); Calcium 9.7 mg/dL (8.4-10.2); Carbon Dioxide 27 mmol/L (22-30); Chloride 105 mmol/L (98-107); Estimated Glomerular Filt Rate > 60; Glucose 142 mg/dL (65-110); Potassium 4.6 mmol/L (3.4-5.0); Sodium 140 mmol/L (137-145)
== END 2024-10-10 19:00 | disposition home or self-care (01) ==
PROVIDERS: Emergency Provider Physician Assistant; PCP Family Medicine
DX: S70.02XA Contusion of left hip, initial encounter (principal); J18.9 Pneumonia, unspecified organism; E04.1 Nontoxic single thyroid nodule; K76.0 Fatty (change of) liver, not elsewhere classified; I48.91 Unspecified atrial fibrillation; I87.2 Venous insufficiency (chronic) (peripheral); I10 Essential (primary) hypertension; J44.9 Chronic obstructive pulmonary disease, unspecified; E78.5 Hyperlipidemia, unspecified; E55.9 Vitamin D deficiency, unspecified; M06.9 Rheumatoid arthritis, unspecified; K21.9 Gastro-esophageal reflux disease without esophagitis; G47.33 Obstructive sleep apnea (adult) (pediatric); Z98.62 Peripheral vascular angioplasty status; Z96.651 Presence of right artificial knee joint; Z85.828 Personal history of other malignant neoplasm of skin; Z86.73 Personal history of transient ischemic attack (TIA), and cerebral infarction without residual deficits; Z86.711 Personal history of pulmonary embolism; Z90.710 Acquired absence of both cervix and uterus; Z79.899 Other long term (current) drug therapy; K80.20 Calculus of gallbladder without cholecystitis without obstruction; W18.39XA Other fall on same level, initial encounter
CPT/HCPCS: 36415; 71045; 71275; 73502; 74174; 80053; 85025; 85055; 93005; 96374; 96375; 99284; J2270; J2405; Q9967

== ENCOUNTER 2024-11-01 14:36 | Outpatient (CLI) | payer MEDICARE, SELFPAY ==
--- NOTE | ~2024-11-01 | XR_ITS ---
XR hip RT 2V w AP pelvis Ordering provider: Gino Han MD History: . M25.551 - Pain in right hip . Comparison: October 10, 2024 FINDINGS: BONES: No acute fracture or dislocation. HIP JOINT SPACES: Bilateral hip severe osteoarthritic changes. SACROILIAC JOINT SPACES/LUMBAR SPINE: The sacroiliac joint spaces are normal. Mild degenerative wagner es of the visualized lower lumbar spine. PUBIC SYMPHYSIS: Normal. SOFT TISSUES: Normal. IMPRESSION: No acute osseous abnormality pelvis and right hip. Reviewed, dictated and finalized at location A.
== END 2024-11-01 14:37 | disposition home or self-care (01) ==
LOC: GOSHIMG 14:36
PROVIDERS: PCP Family Medicine; Visit Provider Family Medicine
DX: M25.551 Pain in right hip (principal)
CPT/HCPCS: 73502

== ENCOUNTER 2024-11-23 08:57 | Outpatient (CLI) | payer MEDICARE, SELFPAY ==
--- OUTSIDE RECORDS SUMMARY | 2024-11-23 09:23 | XMS_ITS | Encounter Summary ---
Author Organization [facility] Address 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
--- OUTSIDE RECORDS SUMMARY | 2024-11-23 09:23 | XMS_ITS | Encounter Summary ---
Author Organization [facility] Address [address] [facility] [place] [address] Care Team Providers Care Conditioning Room Worker Name Role Phone Darnell Raymond MD Unavailable Stefani Mulligan MD Unavailable [phone] Dano Han MD Primary Care Provider Amalia Gregory MD Unavailable [phone] Encounter Details Date Type Department Care Team (Late st Contact Info) Description 12/06/2022 Lab Requisition [facility] D[facility] [address] [facility] [place] [address] Parth Crain MD [facility] [place] [address] Social History Tobacco Use Types Packs/Day Years Used Date Smoking Tobacco: Never Smokeless Tobacco: Never Alcohol Use Standard Drinks/Week Comments No 0 (1 standard drink = 0.6 oz pur e alcohol) Comments Unknown Sex and Gender Information Value Date Recorded Sex Assigned at Not on file Legal Sex Female 6:13 PM COOK FISH [employer] CHIPS Gender Identity Female 01/16/2021 10:27 AM CDT Sexual Orientation Not on file documented as of this encounter Functional Status * Is person deaf or have serious hearing difficulty? Answer Date of Assessment Author No 03/15/2020 7:33 AM CDT Jennifer Mi RN * Is person blind or have serious difficulty seeing? Answer Date of Assessment Author No 03/15/2020 7:33 AM CDT Jennifer Mi RN * Does person have serious difficulty walking/climbing stairs? Answer Date of Assessment Author No 03/15/2020 7:33 AM CDT Jennifer Mi RN * Does person have difficulty dressing/bathing? Answer Date of Assessment Author No 03/15/2020 7:33 AM CDT Jennifer Mi RN * Does person have difficulty doing errands alone? Answer Date of Assessment Author No 03/15/2020 7:33 AM CDT Jennifer Mi RN documented as of this encounter Mental Status * Does person have difficulty concentrating/remembering/making decisions? Answer Entry Date Author No 03/15/2020 7:33 AM LACEYT Jennifer Mi RN documented in this encounter Plan of Treatment Not on file documented as of this encounter Procedures Procedure Name Priority Date/Time Associated Diagnosis Comments DERMATOPATHOLOGY Routine 12/05/2022 3:33 AM CDT documented in this encounter Results * DERMATOPATHOLOGY (12/05/2022 3:33 AM CDT) Case Report Dermatopathology Report Case: [id number] Authorizing Provider: Parth Crain MD Collected: 12/05/2022 03:33 AM Ordering Location: [facility] DermPath Lab Received: 12/06/2022 06:35 AM Pathologist: Louise Nelson MD Specimen: Skin, right earlobe 12:30 PM CDT DERMATOPATHOLOGY LABORATORY Final Diagnosis Specimen A. 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 Please Check Margins. 12:30 PM CDT DERMATOPATHOLOGY LABORATORY Gross Description Specimen A: Received is one formalin filled container labeled with the patient's name and designated right earlobe. The specimen consists of a shave biopsy measuring [id number], [id number] and [id number]. Jar 0. 3 12:30 PM CDT DERMATOPATHOLOGY LABORATORY Microscopic Description Specimen A. SKIN, right earlobe: Sections show narrow elongated strands of basaloid cells within a densely collagenous stroma. This lesion is present at the margin of the specimen. 3 12:30 PM CDT DERMATOPATHOLOGY LABORATORY Disclaimer An external and internal positive and negative controls are appropriate for the histochemical, immunohistochemical and immunofluorescence stain(s) in this case (if any), except where stated explicitly. The performance characteristics of the stain(s) cited in this report were developed and its performance characteristic determined by the Dermatopathology Laboratory at [facility], directed by Dr. Maryam Mendoza. These tests need not be, and therefore are not, approved by the [place] Food and Drug Administration. The tests are used for clinical purposes. Billing Codes Specimen Charges Stain Charges 79785 1 3 12:30 PM CDT DERMATOPATHOLOGY LABORATORY Embedded Images 3 12:30 PM CDT DERMATOPATHOLOGY LABORATORY Pathology/Cytolo gy TISSUE SPECIMEN FROM SKIN / Unknown 12/05/2022 3:33 AM CDT 12/06/2022 6:35 AM CDT Parth Crain MD LAB - PATHOLOGY/CYTOLOGY ORDERAB LES Final Result DERMATOPATHOLOGY LABORATORY [facility] Department of Dermatology [address], [address] [phone] documented in this encounter Visit Diagnoses Not on filedocumented in this encounter Additional Health Concerns Infection Onset Date Last Indicated Resolved Time 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 03/15/2020 documented as of this encounter Care Teams Conditioning Room Worker Relationship Specialty Start Date End Date Dano Han MD [address] [place] [id number] PCP - General 04/03/20 [place] [address] [address] Orthopedic Surgery 10/30/17 [place] [address] [facility] [address] [place] [address] Tire Changer Cardiovascular Disease 03/28/20 [place] [address] [facility] [address] [place] [address] Rheumatology 10/26/20 documented as of this encounter
--- OUTSIDE RECORDS SUMMARY | 2024-11-23 09:23 | XMS_ITS | Clinical Summary ---
Author Organization [facility] Address [address] [place] [address] Care Team Providers Care Gas Maker Name Role Phone Darnell Raymond MD Unavailable [phone] Stefani Mulligan MD Unavailable [phone] Dano Han MD Primary Care Provider Amalia Gregory MD Unavailable Source Comments [facility],non-owned Affiliates and Associated Physician Practices is amultiple site organization consisting of ambulatory clinics and hospital sitesin [place], [place], [place] and [place]. This disclosure is being madepursuant to the Care Everywhere program and may not contain all information available regarding this patient. Last updated 18.[facility] [employer] Allergies No known active allergies Medications * Be aware that medications may not be up to date on this document. Alwaysverify current medications with the patient. folic acid (FOLVITE) 1 MG tablet Take 1 (one) tablet by mouth once daily Active cholecalciferol (DELTA-D) 400 UNIT tablet Take 2.5 (two and one-half) tablets by mouth once daily Active PROAIR HFA 108 (90 BASE) MCG/ACT inhaler Inhale 2 (two) puffs by mouth every 6 hours as needed 1 8 Active atorvastatin (LIPITOR) 40 MG tabletIndications :Occlusion of superior mesenteric artery (HCC),TIA (transient ischemic attack),Essential (primary) hypertension Take 1 tablet by mouth at bedtime 90 tablet 3 0 Active omeprazole (PRILOSEC) 40 MG capsule Take 1 (one) capsule by mouth once daily 0 Active ascorbic acid (VITAMIN C) 500 MG tablet Take 1 (one) tablet by mouth once daily Active hydrocortisone-pr amoxine (ANALPRAM HC 2.5%) 2.5-1 % cream 1 Active traMADol (ULTRAM) 50 MG tabletIndications :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),Polyarthral heather,Lumbar spondylosis Take 1 (one) tablet by mouth 2 times daily as needed pain 60 tablet 1 Active predniSONE (DELTASONE) 5 MG tablet Take 1 (one) tablet by mouth once daily 90 tablet 1 Active Multiple Vitamins-Minerals (CENTRUM ADULTS PO) Active Golimumab (SIMPONI ARIA IV) Every 4 weeks Active lisinopril (PRINIVIL; ZESTRIL) 40 MG tabletIndications :Essential hypertension Take 1 (one) tablet by mouth once daily 90 tablet 3 2 Active methadone (Dolophine) 5 MG tablet 2 Active metoprolol succinate XL 24hr (Toprol XL) 25 MG tablet Take 1 (one) tablet by mouth once daily 3 Active donepezil (Aricept) 5 MG tablet 3 Active Methotrexate Sodium (methotrexate, PF,) 50 MG/2ML injection 3 Active sulfaSALAzine EC (Azulfidine Entab) 500 MG tablet Take 1 (one) tablet by mouth 2 times daily Active Certolizumab Pegol (CIMZIA SC) Ac tive atorvastatin (Lipitor) 40 MG tablet Take 1 (one) tablet by mouth at bedtime 90 tablet 4 4 Active lisinopril (Prinivil; Zestril) 40 MG tablet Take 1 (one) tablet by mouth once daily 90 tablet 11 4 Active Active Problems Problem Noted Date Diagnosed Date Immunosuppressed status 12/04/2021 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 Hoarseness 04/05/2020 Pharyngeal dysphagia 04/05/2020 Lumbar spondylosis 03/29/2020 Other secondary scoliosis, lumbar region 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 20 Aphasia 06/11/2019 TIA (transient ischemic attack) 06/11/2019 Hypertension 06/11/2019 Presence of right artificial knee joint 09/07/19 19 Trochanteric bursitis of left hip 03/12/2018 Primary osteoarthritis of left knee 10/30/2017 Rheumatoid arthritis 05/25/2015 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 (FLUCELVAX QUADRIVALENT; 6MO+) (CCIIV4) 05/13/2019 INFLUENZA VACCINE, QUADR. (F LUZONE; FLULAVAL; FLUARIX; AFLURIA QUADRIVALENT; 6MO+), 0.5 ML (IIV4) 04/11/2020 Zoster Hzv Vacc Recombinant Inj Im 07/17/2020 Family History Medical History Relation Name Comments Hyperlipidemia Brother Hypertension Brother Arthritis - Rheumatoid Father CVA Father Dementia Father Arthritis - Rheumatoid Mother CVA Mother Diabetes - Type 2 Mother Thyroid Disease Mother Hyperlipidemia Sister Hypertension Sister Thyroid Disease Sister Relation Name Status Comments Brother Father Mother Sister Social History Tobacco Use Types Packs/Day Years Used Date Smoking Tobacco: Never Smokeless Tobacco: Never Tobacco Cessation:Counseling Given: Not Answered Alcohol Use Standard Drinks/Week Comments No 0 (1 standard drink = 0.6 oz pur e alcohol) Comments Unknown Sex and Gender Information Value Date Recorded Sex Assigned at Not on file Legal Sex Female 6:13 PM CERTIFIED DIETARY MANAGER Gender Identity Female 01/16/2021 10:27 AM CDT Sexual Orientation Not on file Last Filed Vital Signs Vital Sign Reading Time Taken Comments Blood Pressure 159/91 10/08/2023 10:15 AM CERTIFIED DIETARY MANAGER Pulse 76 10/08/2023 10:15 AM CERTIFIED DIETARY MANAGER Temperature 36.2 C (97.1 F) 07/12/2021 8:47 AM CERTIFIED DIETARY MANAGER Respiratory Rate 18 03/26/2021 10:24 AM CDT Oxygen Saturation 98% 10/26/2020 11:25 AM CDT Inhaled Oxygen Concentration - - Weight 70.3 kg (155 lb) 10/08/2023 10:15 AM CERTIFIED DIETARY MANAGER Height 157.5 cm (5' 2 ) 10/08/2023 10:15 AM CERTIFIED DIETARY MANAGER Body Mass Index 28.35 10/08/2023 10:15 AM CERTIFIED DIETARY MANAGER Plan of Treatment Health Maintenance Due Date Last Done Comments BONE DENSITY TESTING 1940 MEDICARE AWV 12 MONTHS 1940 COVID-19 VACCINE (#1) 1944 DTAP/TDAP/TD VACCINES (1 - Tdap) 1958 PNEUMOCOCCAL VACCINE 50+ (1 of 2 - PCV) 1958 Respiratory Syncytial Virus (RSV) Vaccine Pt: or over 60 yrs (1 - 1-dose 75+ series) 2014 ZOSTER VACCINE (2 of 2) 09/11/2020 07/17/2020 DEPRESSION SCREENING 08/11/2024 INFLUENZA VACCINE (Season Ended) 2025 04/11/2020, 05/13/2019 HEPATITIS B VACCINE Aged Out No longe r eligible based on patient's age to complete this topic HIB VACCINE Aged Out No longer eligi ble based on patient's age to complete this topic HPV VACCINE Aged Out No longer eligi ble based on patient's age to complete this topic MENINGOCOCCAL (Group B) VACCINE SHARED DECISION-MAKING Aged Out No longer eligible based on patient's age to complete this topic MENINGOCOCCAL GROUPS A/C/Y/W VACCINE Aged Out No longer eligible b ased on patient's age to complete this topic Medical Devices Implanted Type Area Director Acute Device Identifier Shelf Expiration Date Model / Serial / Lot Cmnt Bone Cblt 40gm Hvisc Strl Implanted:Qty: 1 on 12/15/2017 by Darnell Raymond MD at [facility] Right: Knee [employer] 06/10/2019 [id number] / / [id number] Cmpnt Fem Kn Rt Cr Cmnt Prm Vngrd Intlk Implanted:Qty: 1 on 12/15/2017 by Darnell Raymond MD at [facility] Right: Knee [employer] 09/14/2027 [id number] / / [id number] Tray Tib 71mm Kn Cocr I Beam Implanted:Qty: 1 on 12/15/2017 by Darnell Raymond MD at [facility] Right: Knee [employer] 08/07/2027 [id number] / / [id number] Cmpnt Ptlr 28mm 1 Pg Wire Ascnt Arcm Kn Implanted:Qty: 1 on 12/15/2017 by Darnell Raymond MD at [facility] Right: Knee [employer] 09/01/2022 [id number] / / [id number] Brng [id number] Vngrd Arcm Kn Ant Stab Implanted:Qty: 1 on 12/15/2017 by Darnell Raymond MD at [facility] Right: Knee [employer] 09/04/2022 [id number] / / [id number] Additional Health Concerns Infection Onset Date 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 03/15/2020 [place] [address] MEDICARE FORMERLY [facility] MEDICARE FORMERLY [facility] Advance Directives * Full Code (Latest Code Status on File) Date Activated Date Inactivated Comments 03/15/2020 5:30 AM 03/18/2020 5:47 PM * Full Code Date Activated Date Inactivated Comments 06/11/2019 10:10 PM 06/13/2019 3:14 PM * Full Code Date Activated Date Inactivated Comments 12/15/2017 2:10 PM 12/18/2017 2:18 PM Care Teams Gas Maker Relationship Specialty Start Date End Date Dano Han MD [address] [place] [address] PCP - General 04/03/20 [place] [address] [address] [place], [place] [id number] Orthopedic Surgery 10/30/17 [place] [address] [address] [place], [place] [id number] Utility Teller Cardiovascular Disease 03/28/20 [place] [address] [address] Rheumatology 10/26/20
--- OUTSIDE RECORDS SUMMARY | 2024-11-23 09:23 | XMS_ITS | Encounter Summary ---
Author Organization [facility] Address [address] [place] [address] Care Team Providers Care Industrial Safety And Health Manager Name Role Phone Cory Ayers DO Primary Care Provider +1- Darnell Raymond MD Unavailable [phone] Esthela Barksdale MD Primary Care Provider Un available Cory Ayers DO Primary Care Provider +1- Cory Ayers DO Primary Care Provider +1- Dano Han MD Primary Care Provider Stefani Mulligan MD Unavailable [phone] Cory Ayers DO Primary Care Provider +1- Dano Han MD Primary Care Provider Amalia Gregory MD Unavailable [phone] Encounter Details Date Type Department Care Team (Late st Contact Info) Description 11/26/2017 [facility] Outpatient Visit [facility] [address] [place] [address] [place] [address] [address] Social History Tobacco Use Types Packs/Day Years Used Date Smoking Tobacco: Never Smokeless Tobacco: Never Alcohol Use Standard Drinks/Week Comments No 0 (1 standard drink = 0.6 oz pur e alcohol) Comments Unknown Sex and Gender Information Value Date Recorded Sex Assigned at Not on file Legal Sex Female 6:13 PM 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 Gender Identity Female 01/16/2021 10:27 AM CDT Sexual Orientation Not on file documented as of this encounter Plan of Treatment Not on file documented as of this encounter Visit Diagnoses Not on filedocumented in this encounter Additional Health Concerns Infection Onset Date Last Indicated Resolved Time MRSA 11/21/2017 11/21/2017 03/15/2020 7:48 AM CDT 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 03/15/2020 documented as of this encounter Care Teams Industrial Safety And Health Manager Relationship Specialty Start Date End Date Cory Ayers DO PCP - General Internal Medicine 10/30/17 06/10/19 Esthela Barksdale MD [address] [place] [address] PCP - General Family Medicine 07/07/19 01/16/20 Cory Ayers DO [address] [place] [address] PCP - General 01/17/20 03/19/20 Cory Ayers DO [address] [place] [address] PCP - General 03/23/20 03/27/20 Dano Han [place] [address] PCP - General Family Medicine 03/28/20 03/30/20 Cory Ayers DO [address] [address] PCP - General 03/31/20 04/02/20 Dano Han MD [address] [place] [address] PCP - General 04/03/20 [place] [address] [place] [address] Orthopedic Surgery 10/30/17 [place] [address] [place] [address] Welder Gas Cardiovascular Disease 03/28/[address] [place] [address] [facility] [facility] [facility] [address] [place] [address] Rheumatology 10/26/20 documented as of this encounter
--- OUTSIDE RECORDS SUMMARY | 2024-11-23 09:23 | XMS_ITS | Encounter Summary ---
Author Organization [facility] Address [address] [place] [address] Care Team Providers Care Wire Coiler Machine Operator Name Role Phone Cory Ayers DO Primary Care Provider Encounter Details Date Type Department Care Team (Late st Contact Info) Description 10/29/1999 Outpatient Historical [facility] Hiram Trivedi MD [facility] [place] [address] Social History Tobacco Use Types Packs/Day Years Used Date Smoking Tobacco: Never Assessed Comments Unknown Sex and Gender Information Value Date Recorded Sex Assigned at Not on file Legal Sex Female 4:21 AM BEVEL MILL OPERATOR Gender Identity Not on file Sexual Orientation Not on file documented as of this encounter Plan of Treatment Not on file documented as of this encounter Visit Diagnoses Not on filedocumented in this encounter Care Teams Wire Coiler Machine Operator Relationship Specialty Start Date End Date Cory Ayers DO PCP - General 07/27/15 documented as of this encounter
--- OUTSIDE RECORDS SUMMARY | 2024-11-23 09:23 | XMS_ITS | Referral Summary ---
Author Organization [facility] Address [address] [place] [address] Care Team Providers Care A Class Lineman Name Role Phone Dano Han MD Primary Care Provider Allergies No known active allergies Medications atorvastatin (LIPITOR) 40 mg tablet Take 40 mg by mouth nightly 0 Active aspirin 81 mg enteric coated tablet Take 81 mg by mouth daily 0 Active apixaban (ELIQUIS) 5 mg tablet Take 5 mg by mouth 2 (two) times a day 0 Active omeprazole (PriLOSEC) 40 mg capsule 0 Active methylPREDNISolo ne (MEDROL) 4 mg tablet 0 Active HYDROcodone-acet aminophen (NORCO) 5-325 mg per tablet TK 1 T PO QID PRN 8 Active albuterol HFA (PROVENTIL HFA,VENTOLIN HFA,PROAIR HFA) 90 mcg/actuation inhaler INL 2 PFS PO Q 4 TO 6 H PRN 8 Active ferrous sulfate 325 mg (65 mg of elemental iron) tablet Take by mouth daily Active silver sulfadiazine (SILVADENE, SSD) 1 % cream 0 Active traMADoL (ULTRAM) 50 mg tablet 2 Active predniSONE (DELTASONE) 2.5 mg tablet 2 Active potassium chloride ER 20 mEq CR tablet Take 20 mEq by mouth daily 1 Active methotrexate, PF, 25 mg/mL preservative free injection 2 Active lisinopriL (PRINIVIL,ZESTRI L) 10 mg tablet Take 40 mg by mouth daily 1 Active hydrocortisone-p ramoxine (ANALPRAM-HC) 2.5-1 % rectal cream APPLY RECTALLY EVERY 12 HOURS FOR 30 DAYS FOR EXTERNAL HEMORRHOIDS 1 Active folic acid (FOLVITE) 1 mg tablet 1 Active multivitamin/iro n/folic acid (CENTRUM ORAL) Take by mouth A ctive Active Problems Problem Noted Date Diagnosed Date COVID-19 09/02/2021 Lumbar spondylosis 03/29/2020 Other secondary scoliosis, lumbar region 020 Rectal hemorrhage 04/21/2013 External hemorrhoids 03/10/2013 Bleeding internal hemorrhoids 03/09/2013 Laryngopharyngeal reflux 05/09/2009 Social History Tobacco Use Types Packs/Day Years Used Date Smoking Tobacco: Never Smokeless Tobacco: Never Alcohol Use Standard Drinks/Week Comments Never 0 (1 standard drink = 0.6 oz pur e alcohol) AUDIT-C Answer Date Recorded Q1: How often do you have a drink containing alc ohol? Never 03/29/2020 Average Number of Drinks Not on file 020 Frequency of Binge Drinking Not on file 03/11 Personal Safety Answer Date Recorded Getting School Help Needed Not on file 08/12 Comments Unknown Sex and Gender Information Value Date Recorded Sex Assigned at Not on file Legal Sex Female 3:34 AM SALES ACCOUNT REPRESENTATIVE Gender Identity Not on file Sexual Orientation Not on file Occupation Industry Job Start Date Job End Date retired Not on file Not on file Not on file Last Filed Vital Signs Vital Sign Reading Time Taken Comments Blood Pressure 140/86 12/15/2021 11:02 AM CDT Pulse 87 12/15/2021 11:02 AM CDT Temperature 36.6 C (97.8 F) 12/15/2021 11:02 AM CDT Respiratory Rate 18 12/15/2021 11:0 2 AM CDT Oxygen Saturation 98% 12/15/2021 11: 02 AM CDT Inhaled Oxygen Concentration - - Weight 66.1 kg (145 lb 12.8 oz) 022 11:02 AM CDT Height 160 cm (5' 3 ) 12/15/2021 11:02 AM CDT Body Mass Index 25.83 12/15/2021 11:02 AM CDT Plan of Treatment Not on [place] [address] [facility] MEDICARE [facility] [address] Care Teams A Class Lineman Relationship Specialty Start Date End Date Dano Han MD PCP - General Family Practice 08/31/21
--- OUTSIDE RECORDS SUMMARY | 2024-11-23 09:23 | XMS_ITS | Encounter Summary ---
Author Organization [facility] Address [address] [place] [address] Care Team Providers Care Timing Machine Operator Name Role Phone Cory Ayers DO Primary Care Provider Encounter Details Date Type Department Care Team (Late st Contact Info) Description 07/26/2002 Inpatient Historical [facility] Antolin Modi MD [address] [facility] [address] [place] [address] POSTOP VAGINAL PROLAPSE (Primary Dx) Social History Tobacco Use Types Packs/Day Years Used Date Smoking Tobacco: Never Assessed Comments Unknown Sex and Gender Information Value Date Recorded Sex Assigned at Not on file Legal Sex Female 4:21 AM CONTROLLER MECHANIC Gender Identity Not on file Sexual Orientation Not on file documented as of this encounter Plan of Treatment Not on file documented as of this encounter Visit Diagnoses Diagnosis 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
--- OUTSIDE RECORDS SUMMARY | 2024-11-23 09:23 | XMS_ITS | Encounter Summary ---
Author Organization [facility] Address [address] [place] [address] Care Team Providers Care Enhanced Environmental Operator Name Role Phone Cory Ayers DO Primary Care Provider Encounter Details Date Type Department Care Team (Late st Contact Info) Description 09/11/2002 Outpatient Historical [facility] Antolin oMdi MD [address] [facility] [address] [address] COMPLIC-URINARY TRACT (Primary Dx) Social History Tobacco Use Types Packs/Day Years Used Date Smoking Tobacco: Never Assessed Comments Unknown Sex and Gender Information Value Date Recorded Sex Assigned at Not on file Legal Sex Female 4:21 AM RES HABILITATION ASSISTANT Gender Identity Not on file Sexual Orientation Not on file documented as of this encounter Plan of Treatment Not on file documented as of this encounter Visit Diagnoses Diagnosis Urinary complications- Primary documented in this encounter Care Teams Enhanced Environmental Operator Relationship Specialty Start Date End Date Cory Ayers DO PCP - General 07/27/15 documented as of this encounter
--- OUTSIDE RECORDS SUMMARY | 2024-11-23 09:23 | XMS_ITS | Clinical Summary ---
Author Organization [facility] Address [address] [facility] [place] [address] Phone Care Team Providers Care Head Butler Name Role Phone AgapitoCory molina Alvarez Primary Care Provider Allergies No known active allergies Medications lisinopril (PRINIVIL) 10 mg Oral tabletIndicatio ns:Chest pain, unspecified,Fat igue Take 10 mg by mouth daily. Active estradiol (ESTRACE) 0.5 mg Oral tabletIndicatio ns:Chest pain, unspecified,Fat igue Take 0.5 mg by mouth daily. Active esomeprazole (NEXIUM) 40 mg Oral CpDRIndications :Chest pain, unspecified,Fat igue Take 40 mg by mouth daily before breakfast. Active CALCIUM CARBONATE/VITAM IN D3 (CALCIUM 500 WITH D ORAL)Indication s:Chest pain, unspecified,Fat igue Take by mouth. Active predniSONE (DELTASONE) 10 mg Oral tabletIndicatio ns:Chest pain, unspecified,Fat igue Take 10 mg by mouth daily. Active ascorbic acid (VITAMIN C) 500 mg Oral tabletIndicatio ns:Chest pain, unspecified,Fat igue Take 500 mg by mouth daily. Active zolpidem (AMBIEN) 5 mg Oral tabletIndicatio ns:Chest pain, unspecified,Fat igue Take 5 mg by mouth nightly as needed. 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 Gender Identity Not on file Sexual Orientation Not on file Last Filed Vital Signs Vital Sign Reading Time Taken Comments Blood Pressure 106/68 01/03/2010 8:53 AM CDT Pulse 101 01/03/2010 8:53 AM CDT Temperature - - Respiratory Rate - - Oxygen Saturation 97% 01/03/2010 8:53 AM CDT Inhaled Oxygen Concentration - - Weight 55.8 kg (123 lb) 01/03/2010 8:53 AM CDT Height - - Body Mass Index - - Plan of Treatment Health Maintenance Due Date Last Done Comments DTAP/TDAP/TD VACCINES (1 - Tdap) 1958 PNEUMOCOCCAL VACCINE 50+ YEARS (1 of 1 - PCV) 09/05/18 90 ZOSTER VACCINE (1 of 2) 1989 OSTEOPOROSIS SCREENING 2004 RSV VACCINE (60+ or ) (1 - 1-dose 75+ series) 2014 INFLUENZA VACCINE (#1) [address]24 [place] [address] MEDICARE PART A AND B [employer] PPO Care Teams Head Butler Relationship Specialty Start Date End Date Cory Ayers DO PCP - General 07/27/15
--- OUTSIDE RECORDS SUMMARY | 2024-11-23 09:23 | XMS_ITS | Encounter Summary ---
Author Organization [facility] Address 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
--- OUTSIDE RECORDS SUMMARY | 2024-11-23 09:23 | XMS_ITS | Encounter Summary ---
Author Organization [facility] Address [address] [place] [address] Care Team Providers Care Finisher Plate Name Role Phone Cory Ayers DO Primary Care Provider Encounter Details Date Type Department Care Team (Late st Contact Info) Description 10/29/1999 Outpatient Historical HIS LAB,NON-PATIENT Hiram Trivedi MD [address] [place] [address] Social History Tobacco Use Types Packs/Day Years Used Date Smoking Tobacco: Never Assessed Comments Unknown Sex and Gender Information Value Date Recorded Sex Assigned at Not on file Legal Sex Female 4:21 AM PLANER FEEDER Gender Identity Not on file Sexual Orientation Not on file documented as of this encounter Plan of Treatment Not on file documented as of this encounter Visit Diagnoses Not on filedocumented in this encounter Care Teams Finisher Plate Relationship Specialty Start Date End Date Cory Ayers DO PCP - General 07/27/15 documented as of this encounter
--- OUTSIDE RECORDS SUMMARY | 2024-11-23 09:23 | XMS_ITS | Encounter Summary ---
Author Organization [facility] Address [address] Attn: [place] [address] Care Team Providers Care Creative Designer Name Role Phone Cory Ayers DO Primary Care Provider Encounter Details Date Type Department Care Team (Late st Contact Info) Description 10/06/1997 Outpatient Historical Conversion, History Hiram Trivedi MD [address] [place] [address] Social History Tobacco Use Types Packs/Day Years Used Date Smoking Tobacco: Never Assessed Comments Unknown Sex and Gender Information Value Date Recorded Sex Assigned at Not on file Legal Sex Female 4:21 AM 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
--- OUTSIDE RECORDS SUMMARY | 2024-11-23 09:23 | XMS_ITS | Encounter Summary ---
Author Organization [facility] Address [address] [facility] Attn: Epic Prelude ADT [place] [address] Care Team Providers Care Gristmiller Name Role Phone Cory Ayers DO Primary Care Provider Encounter Details Date Type Department Care Team (Late st Contact Info) Description 11/26/1989 Outpatient Historical Hiram Trivedi MD [facility] [place] [address] Social History Tobacco Use Types Packs/Day Years Used Date Smoking Tobacco: Never Assessed Comments Unknown Sex and Gender Information Value Date Recorded Sex Assigned at Not on file Legal Sex Female 4:21 AM TAX ANALYST Gender Identity Not on file Sexual Orientation Not on file documented as of this encounter Plan of Treatment Not on file documented as of this encounter Visit Diagnoses Not on filedocumented in this encounter Care Teams Gristmiller Relationship Specialty Start Date End Date Cory Ayers DO PCP - General 07/27/15 documented as of this encounter
--- OUTSIDE RECORDS SUMMARY | 2024-11-23 09:23 | XMS_ITS | Encounter Summary ---
Author Organization [facility] Address [address] [facility] Attn: Epic Prelude ADT [place] [address] Care Team Providers Care Emergency Room Tech Name Role Phone Cory Ayers DO Primary Care Provider Encounter Details Date Type Department Care Team (Late st Contact Info) Description 01/08/1994 Outpatient Historical Hiram Trivedi MD [facility] [place] [address] Social History Tobacco Use Types Packs/Day Years Used Date Smoking Tobacco: Never Assessed Comments Unknown Sex and Gender Information Value Date Recorded Sex Assigned at Not on file Legal Sex Female 4:21 AM INFORMATION SECURITY SPECIALIST Gender Identity Not on file Sexual Orientation Not on file documented as of this encounter Plan of Treatment Not on file documented as of this encounter Visit Diagnoses Not on filedocumented in this encounter Care Teams Emergency Room Tech Relationship Specialty Start Date End Date Cory Ayres DO PCP - General 07/27/15 documented as of this encounter
--- OUTSIDE RECORDS SUMMARY | 2024-11-23 09:23 | XMS_ITS | Encounter Summary ---
Author Organization [facility] Address [address] [place] [address] Care Team Providers Care Video Editing Internship Name Role Phone Cory Ayersian Primary Care Provider Encounter Details Date Type Department Care Team (Latest Contact Info) Description 03/27/2007 Outpatient Historical [facility] Lico Cabrera Specified Congenital Anomalies of Breast (Primary Dx) Social History Tobacco Use Types Packs/Day Years Used Date Smoking Tobacco: Never Assessed Comments Unknown Sex and Gender Information Value Date Recorded Sex Assigned at Not on file Legal Sex Female 4:21 AM CLINICAL REGISTERED NURSE Gender Identity Not on file Sexual Orientation Not on file documented as of this encounter Plan of Treatment Not on file documented as of this encounter Procedures Procedure Name Priority Date/Time Associated Diagnosis Comments HEMOGLOBIN AND HEMATOCRIT Routine 03/27/2007 5:55 AM CDT BASIC METABOLIC PANEL Routine 03/27/2007 5:55 AM CDT documented in this encounter Results * BASIC METABOLIC PANEL (03/27/2007 5:55 AM CDT) GLUCOSE 94 65 - 99 mg/dL INTERFACE SYSTEM CREATININE 0.68 0.51 - 0.95 mg/dL INTERFACE SYSTEM CALCIUM 8.9 8.4 - 10.2 mg/dL INTERFACE SYSTEM BUN 9 6 - 20 mg/dL INTERFACE SYSTEM SODIUM 139 135 - 145 mmol/L INTERFACE SYSTEM POTASSIUM 3.9 3.5 - 4.9 mmol/L INTERFACE SYSTEM CHLORIDE 103 96 - 108 mmol/L INTERFACE SYSTEM CO2 28 22 - 30 mmol/L INTERFACE SYSTEM GFR, >60 >=60 mL/min/1.7 sq meter INTERFACE SYSTEM GFR >60 >=60 mL/min/1.7 sq meter INTERFACE SYSTEM Comment: Estimated GFR rate interpretative information for both Americans and non- Americans is available on the [facility] Intranet at: [email or web address] Select: Lab Policies and Procedures Select: Reference Ranges - GFR 03/27/2007 5:55 AM CDT [employer] CHEMISTRY ORDERABLES Edited Performing Organization Address City/[facility] de Phone Number INTERFACE SYSTEM Refer to clinic/hospital department * HEMOGLOBIN AND HEMATOCRIT (03/27/2007 5:55 AM CDT) HEMOGLOBIN 13.7 11.8 - 14.8 g/dL INTERFACE SYSTEM HEMATOCRIT 40.3 35.5 - 44.0 % INTERFACE SYSTEM 03/27/2007 5:55 AM CDT [employer] HEMATOLOGY ORDERABLES Edited Performing Organization Address City/State/[facility] Co de Phone Number INTERFACE SYSTEM Refer to clinic/hospital department documented in this encounter Visit Diagnoses Diagnosis Specified congenital anomalies of breast- Primary documented in this encounter Care Teams Video Editing Internship Relationship Specialty Start Date End Date Cory Ayers DO PCP - General 07/27/15 documented as of this encounter
--- OUTSIDE RECORDS SUMMARY | 2024-11-23 09:23 | XMS_ITS | Clinical Summary ---
Author Organization [facility] Address [address] [place] [address] Care Team Providers Care Home Care Coordinator Name Role Phone Dano Han MD Primary [...] Bleeding internal hemorrhoids 03/09/2013 Laryngopharyngeal reflux 05/09/2009 Surgical History Surgery Date Site/Laterality Comments APPENDECTOMY HYSTERECTOMY BACK SURGERY 08/11/1976 - 08/10/1977 spinal tumor KNEE SURGERY 08/11/2017 - 08/10/2018 TONSILLECTOMY IR G TUBE PLACEMENT PERCUTANEOUS 02/17/2015 N/A PORT PLACEMENT CHEST >5 YEARS 02/16/2015 N/A PORT PLACEMENT CHEST >5 YEARS 02/16/2015 N/A Medical History Medical History Date Comments Personal history of other di seases of the musculoskeletal system and connective tissue History of polymyalgia rheum atica - (Added by TW Conv) Hypertension GERD (gastroesophageal reflux disease) Gastric reflux Anemia Thyroid disease Rheumatoid arthritis (HCC) MRSA (methicillin resistant Staphylococcus aureus) Lumbar spondylosis Scoliosis of lumbar spine 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 Family History Medical History Relation Name Comments Arthritis Father Arthritis Mother Relation Name Status Comments Father Mother Social History Tobacco Use Types Packs/Day Years [...] on file Legal Sex Female 3:34 AM DISTRICT 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 Gender Identity Not on file Sexual Orientation Not on file Occupation Industry Job Start Date Job End Date retired Not on file Not on file Not on file Obstetrics History Last Filed Vital Signs Vital Sign Reading [...] 12/15/2021 11:02 AM CDT Plan of Treatment Health Maintenance Due Date Last Done Comments Depression Screening 1939 Fall Risk Assessment 1940 Osteoporosis Screening-Bone Density Scan 1939 DTaP/Tdap/Td Vaccine (1 - Tdap) 1950 Hepatitis B Screening 1957 Pneumococcal vaccine 65+ (1 of 2 - PCV) 1958 Well Visit 65+ 2004 Zoster Vaccine (2 of 2) 09/11/2020 07/17/2020 Influenza Vaccine (#1) 2024 0, 05/13/2019, 05/13/2019, Additional history exists Insurance MEDICARE [facility] MEDICARE [facility] Care Teams Home Care Coordinator Relationship Specialty Start Date End Date Dano Han MD PCP - General Family Practice 08/31/21
--- OUTSIDE RECORDS SUMMARY | 2024-11-23 09:23 | XMS_ITS | Encounter Summary ---
Author Organization [facility] Address [address] [place] [address] Care Team Providers Care Labor Economics Professor Name Role Phone Cory Ayers DO Primary Care Provider Encounter Details Date Type Department Care Team (Latest Contact Info) Description 02/26/1999 Inpatient Historical HIS PATIENT IN A BED Cory Oscar Disorders of bursae and tendons in shoulder region, unspecified (Primary Dx) Social History Tobacco Use Types Packs/Day Years Used Date Smoking Tobacco: Never Assessed Comments Unknown Sex and Gender Information Value Date Recorded Sex Assigned at Not on file Legal Sex Female 4:21 AM PRINCIPAL GIFTS OFFICER Gender Identity Not on file Sexual Orientation Not on file documented as of this encounter Plan of Treatment Not on file documented as of this encounter Visit Diagnoses Diagnosis Disorders of bursae and tendons in shoulder region, unspecified- Primary documented in this encounter Care Teams Labor Economics Professor Relationship Specialty Start Date End Date Cory Ayers DO PCP - General 07/27/15 documented as of this encounter
--- OUTSIDE RECORDS SUMMARY | 2024-11-23 09:23 | XMS_ITS | Encounter Summary ---
Author Organization [facility] Address [address] [place] [address] Care Team Providers Care Performance Makeup Artist Name Role Phone Cory Ayers DO Primary Care Provider Encounter Details Date Type Department Care Team (Late st Contact Info) Description 06/23/2001 Outpatient Historical HIS G [facility] Hiram Trivedi MD [address] [place] [address] Social History Tobacco Use Types Packs/Day Years Used Date Smoking Tobacco: Never Assessed Comments Unknown Sex and Gender Information Value Date Recorded Sex Assigned at Not on file Legal Sex Female 4:21 AM DEATH CLAIM CLERK Gender Identity Not on file Sexual Orientation Not on file documented as of this encounter Plan of Treatment Not on file documented as of this encounter Visit Diagnoses Not on filedocumented in this encounter Care Teams Performance Makeup Artist Relationship Specialty Start Date End Date Cory Ayers DO PCP - General 07/27/15 documented as of this encounter
--- OUTSIDE RECORDS SUMMARY | 2024-11-23 09:23 | XMS_ITS | Encounter Summary ---
Author Organization [facility] Address [address] [place] [place] [address] Care Team Providers Care Biology Specimen Technician Name Role Phone Darnell Raymond MD Unavailable [phone] Stefani Mulligan MD Unavailable [phone] Dano Han MD Primary Care Provider Amalia Gregory MD Unavailable [phone] Encounter Details Date Type Department Care Team (Late st Contact Info) Description 01/02/2023 Lab Requisition [facility] - DermPath Lab [address] [facility] [facility] [place] [id number] Parth Crain MD [address] [place] [address] Social History Tobacco Use Types Packs/Day Years Used Date Smoking Tobacco: Never Smokeless Tobacco: Never Alcohol Use Standard Drinks/Week Comments No 0 (1 standard drink = 0.6 oz pur e alcohol) Comments Unknown Sex and Gender Information Value Date Recorded Sex Assigned at Not on file Legal Sex Female 6:13 PM FLOATER OPERATOR Gender Identity Female 01/16/2021 10:27 AM CDT [...] Entry Date Author No 03/15/2020 7:33 AM CDT Jennifer Mi RN documented in this encounter Plan of Treatment Not on file documented as of this encounter Procedures Procedure Name Priority Date/Time Associated Diagnosis Comments DERMATOPATHOLOGY Routine 01/01/2023 12:0 0 AM CDT documented in this encounter Results * DERMATOPATHOLOGY (01/01/2023 12:00 AM CDT) Case Report Dermatopathology Report Case: [id number] Authorizing Provider: Parth Crain MD Collected: 01/01/2023 12:00 AM Ordering Location: [facility] DermPath Lab Received: 01/02/2023 08:56 AM Pathologist: Es Gonzalez MD Specimen: Skin, left lat lower leg 3 5:48 PM CDT DERMATOPATHOLOGY LABORATORY Final Diagnosis Specimen A. SKIN, left lat lower leg: BASAL CELL CARCINOMA, NODULAR TYPE (C44.719) 3 5:48 PM CDT DERMATOPATHOLOGY LABORATORY Clinical History Plaque r/o BCC/SCC 3 5:48 PM CDT DERMATOPATHOLOGY LABORATORY Gross Description Specimen A: Received is one formalin filled container labeled with the patient's name and designated left lat lower leg. The specimen consists of two shaved biopsies measuring 41b88y2 and 6x6x1 mm. Jar 0. 3 5:48 PM CDT DERMATOPATHOLOGY LABORATORY Microscopic Description Specimen A. SKIN, left lat lower leg: Within the dermis there are aggregates of basaloid cells with a high nuclear to cytoplasmic ratio and peripheral palisading. 3 5:48 PM CDT DERMATOPATHOLOGY LABORATORY Disclaimer An external and internal positive and negative controls are appropriate for the histochemical, immunohistochemical and immunofluorescence stain(s) in this case (if any), except where stated explicitly. The performance characteristics of the stain(s) cited in this report were developed and its performance characteristic determined by the Dermatopathology Laboratory at [facility], directed by Dr. Maryam Mendoza. These tests need not be, and therefore are not, approved by the [place] Food and Drug Administration. The tests are used for clinical purposes. Billing Codes Specimen Charges Stain Charges 66458 1 3 5:48 PM CDT DERMATOPATHOLOGY LABORATORY Embedded Images 3 5:48 PM CDT DERMATOPATHOLOGY LABORATORY Pathology/Cytolog y TISSUE SPECIMEN FROM SKIN / Unknown 01/01/2023 01/02/2023 8:56 AM CDT Parth Crain MD LAB - PATHOLOGY/CYTOLOGY ORDERAB LES Final Result DERMATOPATHOLOGY LABORATORY [facility] Department of Dermatology [facility] Medicine [address] [place] [address], [address] [phone] documented in this encounter Visit Diagnoses Not on filedocumented in this encounter Additional Health Concerns Infection Onset Date Last Indicated Resolved Time 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 03/15/2020 documented as of this encounter Care Teams Biology Specimen Technician Relationship Specialty Start Date End Date Dano Han MD [address] [place] [address] PCP - General 04/03/20 [place] [address] [address]A [address] [address] Orthopedic Surgery 10/30/17 [place] [address] [facility] [address] [place] [address] Equine Science Instructor Cardiovascular Disease 03/28/20 [place] [address] [facility] [address] [place] [address] Rheumatology 10/26/20 documented as of this encounter
--- OUTSIDE RECORDS SUMMARY | 2024-11-23 09:23 | XMS_ITS | Encounter Summary ---
Author Organization [facility] Address [address] [place] [address] Care Team Providers Care Stile Ripsaw Operator Name Role Phone Cory Ayers DO Primary Care Provider Encounter Details Date Type Department Care Team (Late st Contact Info) Description 02/01/2000 Outpatient Historical HIS G [facility] Hiram Trivedi MD [address] [place] [address] Social History Tobacco Use Types Packs/Day Years Used Date Smoking Tobacco: Never Assessed Comments Unknown Sex and Gender Information Value Date Recorded Sex Assigned at Not on file Legal Sex Female 4:21 AM TRANSLATIONAL SPECIALIST Gender Identity Not on file Sexual Orientation Not on file documented as of this encounter Plan of Treatment Not on file documented as of this encounter Visit Diagnoses Not on filedocumented in this encounter Care Teams Stile Ripsaw Operator Relationship Specialty Start Date End Date Cory Ayers DO PCP - General 07/27/15 documented as of this encounter
--- OUTSIDE RECORDS SUMMARY | 2024-11-23 09:23 | XMS_ITS | Encounter Summary ---
Author Organization [facility] Address [address] [place] [address] Care Team Providers Care General Education Instructor Name Role Phone Cory Ayers DO Primary Care Provider Encounter Details Date Type Department Care Team (Late st Contact Info) Description 07/12/2002 Outpatient Historical [facility] Support Serv. (Adt Cardiology-[facility]) [address] 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
--- OUTSIDE RECORDS SUMMARY | 2024-11-23 09:23 | XMS_ITS | Encounter Summary ---
Author Organization [facility] Address [address] [place] [address] Care Team Providers Care Training And Development Professional Name Role Phone Cory Ayers DO Primary Care Provider Encounter Details Date Type Department Care Team (Late st Contact Info) Description 09/17/2002 Outpatient Historical [facility] LAB, [address] Antolin Modi MD [address] [place] [address] [address] [address] URIN TRACT INFECTION NOS (Primary Dx) Social History Tobacco Use Types Packs/Day Years Used Date Smoking Tobacco: Never Assessed Comments Unknown Sex and Gender Information Value Date Recorded Sex Assigned at Not on file Legal Sex Female 4:21 AM WASHTUB WORKER Gender Identity Not on file Sexual Orientation Not on file documented as of this encounter Plan of Treatment Not on file documented as of this encounter Visit Diagnoses Diagnosis Urinary tract infection, site not specified- Primary documented in this encounter Care Teams Training And Development Professional Relationship Specialty Start Date End Date Cory Ayers DO PCP - General 07/27/15 documented as of this encounter
--- OUTSIDE RECORDS SUMMARY | 2024-11-23 09:23 | XMS_ITS | Encounter Summary ---
Author Organization [facility] Address [address] [place] [address] Care Team Providers Care Mold Swabber Name Role Phone Cory Ayers DO Primary Care Provider Encounter Details Date Type Department Care Team (Latest Contact Info) Description 05/09/1999 Outpatient Historical [facility] [place] [address] [place] [address] Localized adiposity (Primary Dx) Social History Tobacco Use Types Packs/Day Years Used Date Smoking Tobacco: Never Assessed Comments Unknown Sex and Gender Information Value Date Recorded Sex Assigned at Not on file Legal Sex Female 4:21 AM IT SUPPORT TECHNICIAN Gender Identity Not on file Sexual Orientation Not on file documented as of this encounter Plan of Treatment Not on file documented as of this encounter Visit Diagnoses Diagnosis Localized adiposity- Primary documented in this encounter Care Teams Mold Swabber Relationship Specialty Start Date End Date Cory Ayers DO PCP - General 07/27/15 documented as of this encounter
[2024-11-23 11:46] LABS: Hemoglobin A1C 6.8 % (<5.7)
[2024-11-23 11:56] LABS: Vitamin D 25 Hydroxy 47.8 ng/mL
[2024-11-23 12:04] LABS: Alanine Aminotransferase 45 U/L (6-35); Albumin Level 3.7 g/dL (3.5-5.1); Alkaline Phosphatase 143 U/L (38-126); Anion Gap 7 mmol/L (4-12); Aspartate Amino Transferase 53 U/L (14-36); Bilirubin,Total 0.7 mg/dL (0.2-1.3); Blood Urea Nitrogen 20 mg/dL (7-17); Calcium 9.4 mg/dL (8.4-10.2); Carbon Dioxide 30 mmol/L (22-30); Chloride 104 mmol/L (98-107); Cholesterol 146 mg/dL (0-200); Estimated Glomerular Filt Rate > 60; Glucose 78 mg/dL (65-110); HDL Direct 69 mg/dL; Potassium 3.9 mmol/L (3.4-5.0); Sodium 141 mmol/L (137-145); Triglycerides 133 mg/dL (<150)
[2024-11-23 12:17] LABS: LDL Cholesterol Direct 52 mg/dL
[2024-11-23 12:36] LABS: Thyroid Stimulating Hormone 0.903 uIU/mL (0.465-4.680)
== END 2024-11-23 08:58 | disposition home or self-care (01) ==
LOC: ANHGOSHLAB 08:58
PROVIDERS: PCP Family Medicine; Visit Provider Family Medicine
DX: E78.5 Hyperlipidemia, unspecified (principal); R73.9 Hyperglycemia, unspecified; I10 Essential (primary) hypertension; E04.2 Nontoxic multinodular goiter; E55.9 Vitamin D deficiency, unspecified; E53.8 Deficiency of other specified B group vitamins
CPT/HCPCS: 36415; 80053; 80061; 82306; 82607; 83036; 84443

== ENCOUNTER 2024-12-06 14:30 | Outpatient (CLI) | payer MEDICARE, SELFPAY ==
[2024-12-06 15:49] LABS: Hematocrit 45.3 % (37.0-47.0); Hemoglobin 14.2 g/dL (12.0-15.0); Mean Corpuscular HGB Conc 31.3 g/dl (32-36); Mean Corpuscular Hemoglobin 30.6 pg (26-34); Mean Corpuscular Volume 97.6 fl (80-100); Mean Platelet Volume 12.6 fl (7.4-10.4); Platelet Count Result 108 k/mm3 (150-375); Red Blood Count 4.64 M/mm3 (4.2-5.4); Red Cell Distribution Width 16.3 % (11.5-14.5); White Blood Count 7.4 K/mm3 (4.5-10.0)
[2024-12-06 16:09] LABS: Immunoglobulin G 460 mg/dL (700-1600)
[2024-12-06 16:09] LABS: Iron 126 ug/dL (37-170)
[2024-12-06 16:12] LABS: Prothrombin Time 13.2 Seconds (11.1-14.7)
[2024-12-06 16:18] LABS: Percent Iron Saturation 41 % (20-50)
--- OUTSIDE RECORDS SUMMARY | 2024-12-06 16:41 | XMS_ITS | Encounter Summary ---
Author Organization [facility] Address [address] [place] [address] Care Team Providers Care Toll Booth Operator Name Role Phone Cory Aeyrs DO Primary Care Provider Encounter Details Date Type Department Care Team (Late st Contact Info) Description 07/26/2002 Inpatient Historical [facility] SUR[facility]ERY CTR Antloin Modi MD [address] [facility] [address] [place] [address] POSTOP VAGINAL PROLAPSE (Primary Dx) Social History Tobacco Use Types Packs/Day Years Used Date Smoking Tobacco: Never Assessed Comments Unknown Sex and Gender Information Value Date Recorded Sex Assigned at Not on file Legal Sex Female 4:21 AM HEALTH AND WELLNESS SALES CONSULTANT Gender Identity Not on file Sexual Orientation Not on file documented as of this encounter Plan of Treatment Not on file documented as of this encounter Visit Diagnoses Diagnosis 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
--- OUTSIDE RECORDS SUMMARY | 2024-12-06 16:41 | XMS_ITS | Continuity of Care Document ---
Author Organization [facility] Address [address] [place] [address] Phone Care Team Providers Care Heat Plant Specialist Name Role Phone Carranza OD, Indra Unavailable Unavailable Procedures Procedure Date Eye Exam Established Pt No Script Advance Directives Directive Yes / No Effective Date File Name No Information Encounters Encounter Description Practice Location Reason(s) For Visit Diagnoses Date Provider Providers Copied on Encounter [facility], [address], [place], [place], [id number], [place] tel:[phone] [facility] No Information 9-200 9 Carranza OD Indra. [address] , [address], [place], [address], [place]. tel:[phone] Family History Family Member Type Diagnosis Age At Onset No Information Payers Payer name Insurance type Covered green party ID Authoriza tion(s) Medicare ID CI [id number] BCBS ID Commercial BL [id number] Social History Type Description Quantity Date Captured Comments Sex Female Smoking Status No Information Chief Complaint And Reason For Visit No Information Reason For Referral Reason For Referral No Information History Of Present Illness Encounter Date Complaint History Of Prese nt Illness No Information Functional Status Date Functional Assessmen t No Information Instructions Date Instruction Additional Infor mation No Information Assessments Type Assessment Date No Information Patient Care Teams Name Effective Dates (start - stop) Status Members No Information
--- OUTSIDE RECORDS SUMMARY | 2024-12-06 16:41 | XMS_ITS | Encounter Summary ---
Author Organization [facility] Address 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
--- OUTSIDE RECORDS SUMMARY | 2024-12-06 16:41 | XMS_ITS | Clinical Summary ---
Author Organization [facility] Address [address] [facility] [place] [address] Phone Care Team Providers Care Administrative Office Manager Name Role Phone AgapitoCory molina Alvarez Primary [...] on file Legal Sex Female 4:21 AM ANALYTICAL CLERK Gender Identity Not on file Sexual [...] series) 2014 INFLUENZA VACCINE (#1) 2024 [place] [address] MEDICARE PART A AND B EXFO/TRUE [employer] PPO Care Teams Administrative Office Manager Relationship Specialty Start Date End Date Cory Ayers DO PCP - General 07/27/15
--- OUTSIDE RECORDS SUMMARY | 2024-12-06 16:41 | XMS_ITS | Clinical Summary ---
Author Organization [facility] Address [address] [place] [address] Care Team Providers Care Programmer Business Name Role Phone Dano Han MD Primary [...] on file Legal Sex Female 3:34 AM LEAD QA ANALYST Gender Identity Not on file Sexual [...] 05/13/2019, 05/13/2019, Additional history exists Insurance MEDICARE [facility] MEDICARE [facility] Address: [address] [place] [address] Care Teams Programmer Business Relationship Specialty Start Date End Date Dano Han MD PCP - General Family Practice 08/31/21
--- OUTSIDE RECORDS SUMMARY | 2024-12-06 16:41 | XMS_ITS | Encounter Summary ---
Author Organization [facility] Address 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
--- OUTSIDE RECORDS SUMMARY | 2024-12-06 16:41 | XMS_ITS | Encounter Summary ---
Author Organization [facility] Address [address] [place] [address] Care Team Providers Care Senior Db2 Systems Programmer Name Role Phone Cory Ayers DO Primary Care Provider Encounter Details Date Type Department Care Team (Late st Contact Info) Description 10/29/1999 Outpatient Historical [facility] LAB,NON-PATIENT Hiram Trivedi MD [address] [place] [address] Social History Tobacco Use Types Packs/Day Years Used Date Smoking Tobacco: Never Assessed Comments Unknown Sex and Gender Information Value Date Recorded Sex Assigned at Not on file Legal Sex Female 4:21 AM UPPER LEATHER SORTER Gender Identity Not on file Sexual Orientation Not on file documented as of this encounter Plan of Treatment Not on file documented as of this encounter Visit Diagnoses Not on filedocumented in this encounter Care Teams Senior Db2 Systems Programmer Relationship Specialty Start Date End Date Cory Ayers DO PCP - General 07/27/15 documented as of this encounter
--- OUTSIDE RECORDS SUMMARY | 2024-12-06 16:41 | XMS_ITS | Encounter Summary ---
Author Organization [facility] Address [address] [place] [address] Care Team Providers Care Ordained Minister Name Role Phone Cory Ayers DO Primary Care Provider Encounter Details Date Type Department Care Team (Latest Contact Info) Description 05/09/1999 Outpatient Historical [facility] [place] [address] [facility] [place] [address] Localized adiposity (Primary Dx) Social History Tobacco Use Types Packs/Day Years Used Date Smoking Tobacco: Never Assessed Comments Unknown Sex and Gender Information Value Date Recorded Sex Assigned at Not on file Legal Sex Female 4:21 AM KEEPER HEAD Gender Identity Not on file Sexual Orientation Not on file documented as of this encounter Plan of Treatment Not on file documented as of this encounter Visit Diagnoses Diagnosis Localized adiposity- Primary documented in this encounter Care Teams Ordained Minister Relationship Specialty Start Date End Date Cory Ayers DO PCP - General 07/27/15 documented as of this encounter
--- OUTSIDE RECORDS SUMMARY | 2024-12-06 16:41 | XMS_ITS | Encounter Summary ---
Author Organization [facility] Address [address] [place] [address] Care Team Providers Care Warehouse Administrator Name Role Phone Cory Ayers DO Primary Care Provider Darnell Raymond MD Unavailable Esthela Barksdale MD Primary Care Provider Un available Cory Ayers DO Primary Care Provider Cory Ayers DO Primary Care Provider Dano Han MD Primary Care Provider Stefani Mulligan MD Unavailable [phone] Cory Ayers DO Primary Care Provider [phone] Dano Han MD Primary Care Provider Amalia Gregory MD Unavailable [phone] Encounter Details Date Type Department Care Team (Late st Contact Info) Description 11/26/2017 [facility] Outpatient Visit [facility] [address] [place] [address] [place] [address] [address] Social History Tobacco Use Types Packs/Day Years Used Date Smoking Tobacco: Never Smokeless Tobacco: Never Alcohol Use Standard Drinks/Week Comments No 0 (1 standard drink = 0.6 oz pur e alcohol) Comments Unknown Sex and Gender Information Value Date Recorded Sex Assigned at Not on file Legal Sex Female 6:13 PM WOOD PROCESSING WORKER Gender Identity Female 01/16/2021 10:27 AM CDT [...] documented as of this encounter Care Teams Warehouse Administrator Relationship Specialty Start Date End Date Cory Ayers DO PCP - General Internal Medicine 10/30/17 06/10/19 Esthela Barksdale MD [address] [place] [address] PCP - General Family Medicine 07/07/19 01/16/20 Cory Ayers DO [address] [place] [address] PCP - General 01/17/20 03/19/20 Cory Ayers DO [address] [place] [address] PCP - General 03/23/20 03/27/20 Dano Han MD [address] [place] [address] PCP - General Family Medicine 03/28/20 03/30/20 Cory Ayers DO [address] [address] PCP - General 03/31/20 04/02/20 Dano Han MD [address] [place] [address] PCP - General 04/03/20 [place] [address] [place] [address] Orthopedic Surgery 10/30/17 [place] [address] [place] [address] Emergency Preparedness Coordinator Cardiovascular Disease 03/28/20 [place] [address] [place] [address] Rheumatology 10/26/20 documented as of this encounter
--- OUTSIDE RECORDS SUMMARY | 2024-12-06 16:41 | XMS_ITS | Encounter Summary ---
Author Organization [facility] Address [address] [place] [address] Care Team Providers Care Engine Mechanic Name Role Phone Cory Ayers DO Primary Care Provider Encounter Details Date Type Department Care Team (Latest Contact Info) Description 09/23/2002 Outpatient Historical HIS CARDIOPULMONARY Antolin Modi MD [address] [facility] [address] [address] SWELLING OF LIMB (Primary Dx) Social History Tobacco Use Types Packs/Day Years Used Date Smoking Tobacco: Never Assessed Comments Unknown Sex and Gender Information Value Date Recorded Sex Assigned at Not on file Legal Sex Female 4:21 AM DIALER Gender Identity Not on file Sexual Orientation Not on file documented as of this encounter Plan of Treatment Not on file documented as of this encounter Visit Diagnoses Diagnosis Swelling of limb- Primary documented in this encounter Care Teams Engine Mechanic Relationship Specialty Start Date End Date Cory Ayers DO PCP - General 07/27/15 documented as of this encounter
--- OUTSIDE RECORDS SUMMARY | 2024-12-06 16:41 | XMS_ITS | Encounter Summary ---
Author Organization [facility] Address [address] [place] [address] Care Team Providers Care Manager Process Excellence Name Role Phone Cory Ayersian Primary Care [...] on file Legal Sex Female 4:21 AM ENVIRONMENTAL QUALITY ANALYST Gender Identity Not on file Sexual [...] and non- Americans is available on the [facility] Intranet at: [email or web address] Select: Lab Policies and Procedures Select: Reference Ranges - GFR 03/27/2007 5:55 AM CDT [employer] CHEMISTRY ORDERABLES Edited Performing Organization Address City/[facility] de Phone Number INTERFACE SYSTEM Refer to clinic/hospital department * HEMOGLOBIN AND HEMATOCRIT (03/27/2007 5:55 AM CDT) HEMOGLOBIN 13.7 11.8 - 14.8 g/dL INTERFACE SYSTEM HEMATOCRIT 40.3 35.5 - 44.0 % INTERFACE SYSTEM 03/27/2007 5:55 AM CDT [employer] HEMATOLOGY ORDERABLES Edited Performing Organization Address City/State/[facility] Co de Phone Number INTERFACE SYSTEM Refer to clinic/hospital department documented in this encounter Visit Diagnoses Diagnosis Specified congenital anomalies of breast- Primary documented in this encounter Care Teams Manager Process Excellence Relationship Specialty Start Date End Date Cory Ayers DO PCP - General 07/27/15 documented as of this encounter
--- OUTSIDE RECORDS SUMMARY | 2024-12-06 16:41 | XMS_ITS | Encounter Summary ---
Author Organization [facility] Address [address] [facility] Attn: Epic Prelude ADT [place] [address] Care Team Providers Care Joint Yarner Name Role Phone Cory Ayers DO Primary Care Provider Encounter Details Date Type Department Care Team (Late st Contact Info) Description 01/08/1994 Outpatient Historical Hiram Trivedi MD [facility] [place] [address] Social History Tobacco Use Types Packs/Day Years Used Date Smoking Tobacco: Never Assessed Comments Unknown Sex and Gender Information Value Date Recorded Sex Assigned at Not on file Legal Sex Female 4:21 AM FLAT FINISHER Gender Identity Not on file Sexual Orientation Not on file documented as of this encounter Plan of Treatment Not on file documented as of this encounter Visit Diagnoses Not on filedocumented in this encounter Care Teams Joint Yarner Relationship Specialty Start Date End Date Cory Ayers DO PCP - General 07/27/15 documented as of this encounter
--- OUTSIDE RECORDS SUMMARY | 2024-12-06 16:41 | XMS_ITS | Encounter Summary ---
Author Organization [facility] Address [address] [facility] Attn: [place] [address] Care Team Providers Care Retail Stocker Name Role Phone Cory Ayers DO Primary Care Provider Encounter Details Date Type Department Care Team (Late st Contact Info) Description 10/06/1997 Outpatient Historical Conversion, History Hiram Trivedi MD [address] [place] [address] Social History Tobacco Use Types Packs/Day Years Used Date Smoking Tobacco: Never Assessed Comments Unknown Sex and Gender Information Value Date Recorded Sex Assigned at Not on file Legal Sex Female 4:21 AM PLAYROOM ATTENDANT Gender Identity Not on file Sexual Orientation Not on file documented as of this encounter Plan of Treatment Not on file documented as of this encounter Visit Diagnoses Not on filedocumented in this encounter Care Teams Retail Stocker Relationship Specialty Start Date End Date Cory Ayers DO PCP - General 07/27/15 documented as of this encounter
--- OUTSIDE RECORDS SUMMARY | 2024-12-06 16:41 | XMS_ITS | Encounter Summary ---
Author Organization [facility] Address [address] [place] [address] Care Team Providers Care Weed Inspector Name Role Phone Cory Ayers DO Primary Care Provider Encounter Details Date Type Department Care Team (Late st Contact Info) Description 07/12/2002 Outpatient Historical [facility] (Adt Cardiology-[facility]) [address] [place] [address] Darnell Hernandez Social History Tobacco Use Types Packs/Day Years Used Date Smoking Tobacco: Never Assessed Comments Unknown Sex and Gender Information Value Date Recorded Sex Assigned at Not on file Legal Sex Female 4:21 AM WAREHOUSE OPERATIONS MANAGER Gender Identity Not on file Sexual Orientation Not on file documented as of this encounter Plan of Treatment Not on file documented as of this encounter Visit Diagnoses Not on filedocumented in this encounter Care Teams Weed Inspector Relationship Specialty Start Date End Date Cory Ayers DO PCP - General 07/27/15 documented as of this encounter
--- OUTSIDE RECORDS SUMMARY | 2024-12-06 16:41 | XMS_ITS | Encounter Summary ---
Author Organization [facility] Address [address] [place] [address] Care Team Providers Care Field Agent Name Role Phone Cory Ayers DO Primary Care Provider Encounter Details Date Type Department Care Team (Late st Contact Info) Description 09/17/2002 Outpatient Historical HIS LAB, [address] Antolin Modi MD [address] [place] [address] [address] [address] URIN TRACT INFECTION NOS (Primary Dx) Social History Tobacco Use Types Packs/Day Years Used Date Smoking Tobacco: Never Assessed Comments Unknown Sex and Gender Information Value Date Recorded Sex Assigned at Not on file Legal Sex Female 4:21 AM REAL ESTATE LOAN PROCESSOR Gender Identity Not on file Sexual Orientation Not on file documented as of this encounter Plan of Treatment Not on file documented as of this encounter Visit Diagnoses Diagnosis Urinary tract infection, site not specified- Primary documented in this encounter Care Teams Field Agent Relationship Specialty Start Date End Date Cory Ayers DO PCP - General 07/27/15 documented as of this encounter
--- OUTSIDE RECORDS SUMMARY | 2024-12-06 16:41 | XMS_ITS | Encounter Summary ---
Author Organization [facility] Address [address] [place] [address] Care Team Providers Care Louver Door Assembler Name Role Phone Cory Ayers DO Primary Care Provider Encounter Details Date Type Department Care Team (Late st Contact Info) Description 09/11/2002 Outpatient Historical [facility] SURGERY CTR Antolin Modi MD [address] [facility] [address] [address] COMPLIC-URINARY TRACT (Primary Dx) Social History Tobacco Use Types Packs/Day Years Used Date Smoking Tobacco: Never Assessed Comments Unknown Sex and Gender Information Value Date Recorded Sex Assigned at Not on file Legal Sex Female 4:21 AM RESOURCE ENGINEER Gender Identity Not on file Sexual Orientation Not on file documented as of this encounter Plan of Treatment Not on file documented as of this encounter Visit Diagnoses Diagnosis Urinary complications- Primary documented in this encounter Care Teams Louver Door Assembler Relationship Specialty Start Date End Date Cory Ayers DO PCP - General 07/27/15 documented as of this encounter
--- OUTSIDE RECORDS SUMMARY | 2024-12-06 16:41 | XMS_ITS | Encounter Summary ---
Author Organization [facility] Address [address] [place] [address] Care Team Providers Care Learning And Development Analyst Name Role Phone Cory Ayers DO Primary Care Provider Encounter Details Date Type Department Care Team (Late st Contact Info) Description 02/01/2000 Outpatient Historical HIS G [facility] Hiram Trivedi MD [address] [place] [address] Social History Tobacco Use Types Packs/Day Years Used Date Smoking Tobacco: Never Assessed Comments Unknown Sex and Gender Information Value Date Recorded Sex Assigned at Not on file Legal Sex Female 4:21 AM FOUNTAIN ROLLER ASSEMBLER Gender Identity Not on file Sexual Orientation Not on file documented as of this encounter Plan of Treatment Not on file documented as of this encounter Visit Diagnoses Not on filedocumented in this encounter Care Teams Learning And Development Analyst Relationship Specialty Start Date End Date Cory Ayers DO PCP - General 07/27/15 documented as of this encounter
--- OUTSIDE RECORDS SUMMARY | 2024-12-06 16:41 | XMS_ITS | Encounter Summary ---
Author Organization [facility] Address [address] [place] [address] Care Team Providers Care Parts Cleaner Name Role Phone Cory Ayers DO Primary Care Provider Encounter Details Date Type Department Care Team (Late st Contact Info) Description 06/23/2001 Outpatient Historical HIS G [facility] Hiram Trivedi MD [address] [place] [address] Social History Tobacco Use Types Packs/Day Years Used Date Smoking Tobacco: Never Assessed Comments Unknown Sex and Gender Information Value Date Recorded Sex Assigned at Not on file Legal Sex Female 4:21 AM WASTEWATER PROCESS ENGINEER Gender Identity Not on file Sexual Orientation Not on file documented as of this encounter Plan of Treatment Not on file documented as of this encounter Visit Diagnoses Not on filedocumented in this encounter Care Teams Parts Cleaner Relationship Specialty Start Date End Date Cory Ayers DO PCP - General 07/27/15 documented as of this encounter
--- OUTSIDE RECORDS SUMMARY | 2024-12-06 16:41 | XMS_ITS | Encounter Summary ---
Author Organization [facility] Address [address] [place] [address] Care Team Providers Care Shipping Lead Name Role Phone Cory Ayers DO Primary Care Provider Encounter Details Date Type Department Care Team (Late st Contact Info) Description 10/29/1999 Outpatient Historical [facility] Hiram Trivedi MD Formerly [facility] [place] [address] Social History Tobacco Use Types Packs/Day Years Used Date Smoking Tobacco: Never Assessed Comments Unknown Sex and Gender Information Value Date Recorded Sex Assigned at Not on file Legal Sex Female 4:21 AM CUSTOMER SUCCESS ASSOCIATE Gender Identity Not on file Sexual Orientation Not on file documented as of this encounter Plan of Treatment Not on file documented as of this encounter Visit Diagnoses Not on filedocumented in this encounter Care Teams Shipping Lead Relationship Specialty Start Date End Date Cory Ayers DO PCP - General 07/27/15 documented as of this encounter
--- OUTSIDE RECORDS SUMMARY | 2024-12-06 16:41 | XMS_ITS | Referral Summary ---
Author Organization [facility] [place] Address [address] [place] [address] Care Team Providers Care Metals Sales Representative Name Role Phone Dano Han MD Primary [...] on file Legal Sex Female 3:34 AM DEBEAKER Gender Identity Not on file Sexual Orientation [...] of Treatment Not on file Insurance MEDICARE [facility] MEDICARE [facility] [place] [address] Care Teams Metals Sales Representative Relationship Specialty Start Date End Date Dano Han MD PCP - General Family Practice 08/31/21
--- OUTSIDE RECORDS SUMMARY | 2024-12-06 16:42 | XMS_ITS | Encounter Summary ---
Author Organization [facility] Address [address] [facility] Attn: Epic Prelude ADT [place] [address] Care Team Providers Care Jackspooler Name Role Phone Cory Ayers DO Primary Care Provider Encounter Details Date Type Department Care Team (Late st Contact Info) Description 11/26/1989 Outpatient Historical Hiram Trivedi MD Replaced by [facility] [place] [address] Social History Tobacco Use Types Packs/Day Years Used Date Smoking Tobacco: Never Assessed Comments Unknown Sex and Gender Information Value Date Recorded Sex Assigned at Not on file Legal Sex Female 4:21 AM INTEGRITY ENGINEER Gender Identity Not on file Sexual Orientation Not on file documented as of this encounter Plan of Treatment Not on file documented as of this encounter Visit Diagnoses Not on filedocumented in this encounter Care Teams Jackspooler Relationship Specialty Start Date End Date Cory Ayers DO PCP - General 07/27/15 documented as of this encounter
--- OUTSIDE RECORDS SUMMARY | 2024-12-06 16:43 | XMS_ITS | Clinical Summary ---
Author Organization [facility] Address [address] [place] [address] Care Team Providers Care Rock Mason Name Role Phone Darnell Raymond MD Unavailable [phone] Stefani Mulligan MD Unavailable [phone] Dano Han MD Primary Care Provider Amalia Gregory MD Unavailable [phone] Source Comments [facility],non-owned Affiliates and Associated Physician Practices is amultiple site organization consisting of ambulatory clinics and hospital sitesin [place], [place], [place] and [place]. This disclosure is being madepursuant to the Care Everywhere program and may not contain all information available regarding this patient. Last updated 18.[facility] [employer] Allergies No known active allergies Medications * [...] on file Legal Sex Female 6:13 PM SUPERVISORY IT SPECIALIST Gender Identity Female 01/16/2021 10:27 AM CDT Sexual Orientation Not on file Last Filed Vital Signs Vital Sign Reading Time Taken Comments Blood Pressure 159/91 10/08/2023 10:15 AM SUPERVISORY IT SPECIALIST Pulse 76 10/08/2023 10:15 AM SUPERVISORY IT SPECIALIST Temperature 36.2 C (97.1 F) 07/12/2021 8:47 AM SUPERVISORY IT SPECIALIST Respiratory Rate 18 03/26/2021 10:24 AM CDT Oxygen Saturation 98% 10/26/2020 11:25 AM CDT Inhaled Oxygen Concentration - - Weight 70.3 kg (155 lb) 10/08/2023 10:15 AM SUPERVISORY IT SPECIALIST Height 157.5 cm (5' 2 ) 10/08/2023 10:15 AM SUPERVISORY IT SPECIALIST Body Mass Index 28.35 10/08/2023 10:15 AM SUPERVISORY IT SPECIALIST Plan of Treatment Health Maintenance Due Date [...] this topic Medical Devices Implanted Type Area Student Affairs Dean Device Identifier Shelf Expiration Date Model / Serial / Lot Cmnt Bone Cblt 40gm Hvisc Strl Implanted:Qty: 1 on 12/15/2017 by Darnell Raymond MD at [facility] Right: Knee [employer] 06/10/2019 [id number] / / [id number] Cmpnt Fem Kn Rt Cr Cmnt Prm Vngrd Intlk Implanted:Qty: 1 on 12/15/2017 by Darnell Raymond MD at [facility] Right: Knee [employer] 09/14/2027 [id number] / / [id number] Tray Tib 71mm Kn Cocr I Beam Implanted:Qty: 1 on 12/15/2017 by Darnell Raymond MD at [facility] Right: Knee [employer] 08/07/2027 [id number] / / [id number] Cmpnt Ptlr 28mm 1 Pg Wire Ascnt Arcm Kn Implanted:Qty: 1 on 12/15/2017 by Darnell Raymond MD at [facility] Right: Knee [employer] 09/01/2022 [id number] / / [id number] Brng [id number] Vngrd Arcm Kn Ant Stab Implanted:Qty: 1 on 12/15/2017 by Darnell Raymond MD at [facility] Right: Knee [employer] 09/04/2022 [id number] / / [id number] Additional Health Concerns Infection Onset Date 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 03/15/2020 [place] [address] MEDICARE [facility] MEDICARE [facility] Advance Directives * Full Code (Latest Code Status on File) Date Activated Date Inactivated Comments 03/15/2020 5:30 AM 03/18/2020 5:47 PM * Full Code Date Activated Date Inactivated Comments 06/11/2019 10:10 PM 06/13/2019 3:14 PM * Full Code Date Activated Date Inactivated Comments 12/15/2017 2:10 PM 12/18/2017 2:18 PM Care Teams Rock Mason Relationship Specialty Start Date End Date Dano Han MD [address] [place] [address] PCP - General 04/03/20 [place] [address] [address] [place], [place] [address] Orthopedic Surgery 10/30/17 [place] [address] [address] [place], [place] [phone] Health Club Attendant Cardiovascular Disease 03/28/20 [place] [address] [address] Rheumatology 10/26/20
--- OUTSIDE RECORDS SUMMARY | 2024-12-06 16:43 | XMS_ITS | Encounter Summary ---
Author Organization [facility] Address [address] [place] [address] Care Team Providers Care Machine Ii Trimmer Name Role Phone Darnell Raymond MD Unavailable [phone] Stefani Mulligan MD Unavailable [phone] Dano Han MD Primary Care Provider Amalia Gregory MD Unavailable [phone] Encounter Details Date Type Department Care Team (Late st Contact Info) Description 01/02/2023 Lab Requisition [facility] - DermPath Lab [address] [facility] [place] [address] Parth Crain MD [address] [place] [address] Social History Tobacco Use Types Packs/Day Years Used Date Smoking Tobacco: Never Smokeless Tobacco: Never Alcohol Use Standard Drinks/Week Comments No 0 (1 standard drink = 0.6 oz pur e alcohol) Comments Unknown Sex and Gender Information Value Date Recorded Sex Assigned at Not on file Legal Sex Female 6:13 PM JAMMER OPERATOR Gender Identity Female 01/16/2021 10:27 AM [...] AM CDT) Case Report Dermatopathology Report Case: [id number] Authorizing Provider: Parth Crain MD Collected: 01/01/2023 12:00 AM Ordering Location: [facility] DermPath Lab Received: 01/02/2023 08:56 AM [...] specimen consists of two shaved biopsies measuring 44g88o5 and 6x6x1 mm. Jar 0. 3 5:48 [...] characteristic determined by the Dermatopathology Laboratory at [facility], directed by Dr. Maryam Mendoza. These tests need not be, and therefore are not, approved by the [place] Food and Drug Administration. The tests are used for clinical purposes. Billing Codes Specimen Charges Stain Charges 95379 1 3 5:48 PM CDT DERMATOPATHOLOGY LABORATORY Embedded Images 3 5:48 PM CDT DERMATOPATHOLOGY LABORATORY Pathology/Cytolog y TISSUE SPECIMEN FROM SKIN / Unknown 01/01/2023 01/02/2023 8:56 AM CDT Parth Crain MD LAB - PATHOLOGY/CYTOLOGY ORDERAB LES Final Result DERMATOPATHOLOGY LABORATORY [facility] Department of Dermatology Formerly [facility] Medicine [address] [place] [address], [address] [phone] documented in this encounter Visit Diagnoses Not on filedocumented in this encounter Additional Health Concerns Infection Onset Date Last Indicated Resolved Time 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 03/15/2020 documented as of this encounter Care Teams Machine Ii Trimmer Relationship Specialty Start Date End Date Dano Han MD [address] [place] [address] PCP - General 04/03/20 [place] [address] [address] [address] Orthopedic Surgery 10/30/17 [place] [address] [facility] [address] [place] [address] Wet Process Miller Cardiovascular Disease 03/28/20 [place] [address] [facility] [address] [place] [address] Rheumatology 10/26/20 documented as of this encounter
--- OUTSIDE RECORDS SUMMARY | 2024-12-06 16:43 | XMS_ITS | Encounter Summary ---
Author Organization [facility] Address [address] [place] [address] Care Team Providers Care Casting Coordinator Name Role Phone Darnell Raymond MD Unavailable [phone] Stefani Mulligan MD Unavailable Dano Han MD Primary Care Provider Amalia Gregory MD Unavailable [phone] Encounter Details Date Type Department Care Team (Late st Contact Info) Description 12/06/2022 Lab Requisition [facility] Care DermPath Lab [address] [facility] [place] [address] 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 Jar 0. 3 12:30 PM CDT DERMATOPATHOLOGY [...] determined by the Dermatopathology Laboratory at [facility], directed by Dr. Maryam Mendoza. These tests need not be, and therefore are not, approved by the [place] Food and Drug Administration. The tests are used for clinical purposes. Billing Codes Specimen Charges Stain Charges 84663 1 3 12:30 PM CDT DERMATOPATHOLOGY LABORATORY Embedded Images 3 12:30 PM CDT DERMATOPATHOLOGY LABORATORY Pathology/Cytolo gy TISSUE SPECIMEN FROM SKIN / Unknown 12/05/2022 3:33 AM CDT 12/06/2022 6:35 AM CDT Parth Crain MD LAB - PATHOLOGY/CYTOLOGY ORDERAB LES Final Result DERMATOPATHOLOGY LABORATORY [facility] Department of Dermatology [address], [address] [phone] documented in this encounter Visit Diagnoses Not on filedocumented in this encounter Additional Health Concerns Infection Onset Date Last Indicated Resolved Time 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 03/15/2020 documented as of this encounter Care Teams Casting Coordinator Relationship Specialty Start Date End Date Dano Han MD [address] [place] [phone] PCP - General 04/03/20 [place] [address] [address] Orthopedic Surgery 10/30/17 [place] [address] [facility] [address] [place] [address] Coremaking Machine Operator Cardiovascular Disease 03/28/20 [place] [address] [facility] [address] [place] [address] Rheumatology 10/26/20 documented as of this encounter
[2024-12-07 22:39] LABS: Ceruloplasmin 23 mg/dL (14-48)
[2024-12-08 04:39] LABS: Hepatitis A Antibody Total REACTIVE (NON-REACTIVE)
[2024-12-08 11:58] LABS: Alpha Fetoprotein Tumor Marker 4.4 ng/mL
[2024-12-09 12:18] LABS: ANA Pattern Cytoplasmic; ANA Titer 1:40 titer
== END 2024-12-06 14:31 | disposition home or self-care (01) ==
PROVIDERS: PCP Family Medicine; Visit Provider Nurse Practitioner
DX: K74.60 Unspecified cirrhosis of liver (principal); R79.89 Other specified abnormal findings of blood chemistry
CPT/HCPCS: 36415; 81596; 82104; 82105; 82390; 82784; 83516; 83520; 83540; 83550; 85027; 85610; 86038; 86376; 86708

== ENCOUNTER 2024-12-14 08:01 | Outpatient (CLI) | payer MEDICARE, SELFPAY ==
--- NOTE | ~2024-12-14 | US_ITS ---
Limited Abdominal Sonogram: Real-time sonographic imaging of the right upper quadrant was performed. Clinical History: Cirrhosis Findings: The liver there is trace coarse echotexture, with no evidence of mass lesion or bile duct dilatation. Main portal vein demonstrates normal direction of flow. The gallbladder is well distended , and demonstrate small stones. The common bile duct measures 5 mm. The visualized pancreas, aorta, and IVC are unremarkable. Impression: Cholelithiasis. Coarse hepatic echotexture could reflect fatty infiltration or other chronic liver disease. Reviewed, dictated and finalized at location M. Impression: Cholelithiasis. Coarse hepatic echotexture could reflect fatty infiltration or other chronic li mau disease.
== END 2024-12-14 08:02 | disposition home or self-care (01) ==
LOC: GOSHIMG 08:01
PROVIDERS: PCP Nurse Practitioner; Visit Provider Nurse Practitioner
DX: K80.20 Calculus of gallbladder without cholecystitis without obstruction (principal); R93.2 Abnormal findings on diagnostic imaging of liver and biliary tract; K74.60 Unspecified cirrhosis of liver; R79.89 Other specified abnormal findings of blood chemistry
CPT/HCPCS: 76705

== ENCOUNTER 2024-12-17 07:27 | Outpatient (CLI) | payer MEDICARE, SELFPAY ==
--- NOTE | ~2024-12-17 | MM_ITS ---
EXAMINATION: MM scrn tammie implant BI w ethan HISTORY: Screening mammogram TECHNIQUE: Craniocaudal and mediolateral oblique 3-D tomosynthesis images with implant displacement a nd synthetic 2-D images were generated. Craniocaudal and mediolateral oblique views of the breasts wi thout implant displacement were obtained using full field digital mammography. CAD analysis was submi tted and interpreted. COMPARISON: No prior mammogram is available for comparison at this institution. BREAST PARENCHYMAL COMPOSITION: Not dense: There are scattered areas of fibroglandular density. FINDINGS: There is a small mass in the lower outer quadrant of the left breast, anterior third. There is no mammographic evidence for malignancy in the right breast. IMPRESSION: 1. Small periareolar left breast mass, lower outer quadrant. 2. Additional mammographic views and possible breast ultrasound are recommended. BI-RADS Category 0: Incomplete: Needs additional imaging evaluation. Reviewed, dictated and finalized at location A. IMPRESSION: 1. Small periareolar left breast mass, lower outer quadrant. 2. Additional mammographic views and possible breast ultrasound are recommended . BI-RADS Category 0: Incomplete: Needs additional imaging evaluation.
--- OUTSIDE RECORDS SUMMARY | 2024-12-17 07:37 | XMS_ITS | Encounter Summary ---
Author Organization [facility] Address [address] [place] [address] Care Team Providers Care Floor Associate Name Role Phone Cory Ayers DO Primary Care Provider Encounter Details Date Type Department Care Team (Late st Contact Info) Description 09/17/2002 Outpatient Historical HIS LAB, [address] Antolin Modi MD [address] [place] [address] [address] [address] URIN TRACT INFECTION NOS (Primary Dx) Social History Tobacco Use Types Packs/Day Years Used Date Smoking Tobacco: Never Assessed Comments Unknown Sex and Gender Information Value Date Recorded Sex Assigned at Not on file Legal Sex Female 4:21 AM CELERY CUTTER Gender Identity Not on file Sexual Orientation Not on file documented as of this encounter Plan of Treatment Not on file documented as of this encounter Visit Diagnoses Diagnosis Urinary tract infection, site not specified- Primary documented in this encounter Care Teams Floor Associate Relationship Specialty Start Date End Date Cory Ayers DO PCP - General 07/27/15 documented as of this encounter
--- OUTSIDE RECORDS SUMMARY | 2024-12-17 07:37 | XMS_ITS | Encounter Summary ---
Author Organization [email or web address] Address [address] [place] [address] Care Team Providers Care Truck Washer Name Role Phone Cory Ayers DO Primary [...] on file Legal Sex Female 4:21 AM CLIMATE CHANGE RISK ASSESSOR Gender Identity Not on file Sexual Orientation Not on file documented as of this encounter Plan of Treatment Not on file documented as of this encounter Visit Diagnoses Diagnosis Disorders of bursae and tendons in shoulder region, unspecified- Primary documented in this encounter Care Teams Truck Washer Relationship Specialty Start Date End Date oCry Ayers DO PCP - General 07/27/15 documented as of this encounter
--- OUTSIDE RECORDS SUMMARY | 2024-12-17 07:37 | XMS_ITS | Encounter Summary ---
Author Organization [facility] Address [address] [facility] [place] [address] Care Team Providers Care Sourcing Associate Name Role Phone Darnell Raymond MD Unavailable [phone] Stefani Mulligan MD Unavailable Dano Han MD Primary Care Provider Amalia Gregory MD Unavailable [phone] Encounter Details Date Type Department Care Team (Late st Contact Info) Description 01/02/[address] [facility] - DermPath Lab [address] [facility] [place] [address] Parth Crain MD [address] [place] [address] Social History Tobacco Use Types Packs/Day Years Used Date Smoking Tobacco: Never Smokeless Tobacco: Never Alcohol Use Standard Drinks/Week Comments No 0 (1 standard drink = 0.6 oz pur e alcohol) Comments Unknown Sex and Gender Information Value Date Recorded Sex Assigned at Not on file Legal Sex Female 6:13 PM TRADE SPECIALIST Gender Identity Female 01/16/2021 10:27 AM [...] AM CDT) Case Report Dermatopathology Report Case: [id number] Authorizing Provider: Parth Crain MD Collected: 01/01/2023 12:00 AM Ordering Location: [facility] DermPath Lab Received: 01/02/2023 08:56 AM Pathologist: [...] specimen consists of two shaved biopsies measuring 80u72d8 and 6x6x1 mm. Jar 0. 3 5:48 [...] characteristic determined by the Dermatopathology Laboratory at [facility], directed by Dr. Maryam Mendoza. These tests need not be, and therefore are not, approved by the [place] Food and Drug Administration. The tests are used for clinical purposes. Billing Codes Specimen Charges Stain Charges 77790 1 3 5:48 PM CDT DERMATOPATHOLOGY LABORATORY Embedded Images 3 5:48 PM CDT DERMATOPATHOLOGY LABORATORY Pathology/Cytolog y TISSUE SPECIMEN FROM SKIN / Unknown 01/01/2023 01/02/2023 8:56 AM CDT Parth Crain MD LAB - PATHOLOGY/CYTOLOGY ORDERAB LES Final Result DERMATOPATHOLOGY LABORATORY [facility] Department of Dermatology [facility] Medicine [address] [place] [address], [address]rd [address] [phone] documented in this encounter Visit Diagnoses Not on filedocumented in this encounter Additional Health Concerns Infection Onset Date Last Indicated Resolved Time 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 03/15/2020 documented as of this encounter Care Teams Sourcing Associate Relationship Specialty Start Date End Date Dano Han MD [address] [place] [address] PCP - General 04/03/20 [place] [address] [address]A [address] [address] Orthopedic Surgery 10/30/17 [place] [address] [facility] [address] [place] [address] Lehr Loader Cardiovascular Disease 03/28/20 [place] [address] [facility] [address] [place] [address] Rheumatology 10/26/20 documented as of this encounter
--- OUTSIDE RECORDS SUMMARY | 2024-12-17 07:37 | XMS_ITS | Encounter Summary ---
Author Organization [facility] Address [address] [place] [address] Care Team Providers Care Assistant To The Dean Name Role Phone Cory Ayers DO Primary Care Provider Darnell Raymond MD Unavailable Esthela Barksdale MD Primary Care Provider Un available Cory Ayers DO Primary Care Provider Cory Ayers DO Primary Care Provider Dano Han MD Primary Care Provider Stefani Mulligan MD Unavailable [phone] Cory Ayers DO Primary Care Provider [phone] Dano Han MD Primary Care Provider Amalia Gregory MD Unavailable [phone] Encounter Details Date Type Department Care Team (Late st Contact Info) Description 11/26/[address] [facility] Outpatient Visit [facility] [address] [place] [address] [place] [address] [address] Social History Tobacco Use Types Packs/Day Years Used Date Smoking Tobacco: Never Smokeless Tobacco: Never Alcohol Use Standard Drinks/Week Comments No 0 (1 standard drink = 0.6 oz pur e alcohol) Comments Unknown Sex and Gender Information Value Date Recorded Sex Assigned at Not on file Legal Sex Female 6:13 PM CHICKEN STUFFER Gender Identity Female 01/16/2021 10:27 AM CDT [...] documented as of this encounter Care Teams Assistant To The Dean Relationship Specialty Start Date End Date Cory Ayers DO PCP - General Internal Medicine 10/30/17 06/10/19 Esthela Barksdale MD [address] [place] [address] PCP - General Family Medicine 07/07/19 01/16/20 Cory Ayers DO [address] [place] [address] PCP - General 01/17/20 03/19/20 Cory Ayers DO [address] [place] [address] PCP - General 03/23/20 03/27/20 Dano Han MD [address] [place] [address] PCP - General Family Medicine 03/28/20 03/30/20 Cory Ayers DO [address] [place] [place] [address] PCP - General 03/31/20 04/02/20 Dano Han MD [address] [place] [address] PCP - General 04/03/20 [place] [address] [place] [address] Orthopedic Surgery 10/30/17 [place] [address] [place] [address] Plywood Layup Line Core Layer Cardiovascular Disease 03/28/20 [place] [address] [place] [address] Rheumatology 10/26/20 documented as of this encounter
--- OUTSIDE RECORDS SUMMARY | 2024-12-17 07:37 | XMS_ITS | Encounter Summary ---
Author Organization [facility] Address [address] [facility] [place] [address] Care Team Providers Care Steam Cleaner Name Role Phone Darnell Raymond MD Unavailable Stefani Mulligan MD Unavailable [phone] aDno Han MD Primary Care Provider Amalia Gregory MD Unavailable [phone] Encounter Details Date Type Department Care Team (Late st Contact Info) Description 12/06/2022 Lab Requisition [facility] Care DermPath Lab [address] [facility] [place] [address] Parth Crain MD [facility] [place] [address] Social History Tobacco Use Types Packs/Day Years Used Date Smoking Tobacco: Never Smokeless Tobacco: Never Alcohol Use Standard Drinks/Week Comments No 0 (1 standard drink = 0.6 oz pur e alcohol) Comments Unknown Sex and Gender Information Value Date Recorded Sex Assigned at Not on file Legal Sex Female 6:13 PM JANITORIAL CLEANER Gender Identity Female 01/16/2021 10:27 AM CDT [...] AM CDT) Case Report Dermatopathology Report Case: [id number] Authorizing Provider: Parth Crain MD Collected: 12/05/2022 03:33 AM Ordering Location: [facility] DermPath Lab Received: 12/06/2022 06:35 AM Pathologist: [...] specimen consists of a shave biopsy measuring 87w6a3lc, 2s7q2je and 2y5g7eg. Jar 0. 3 12:30 PM CDT DERMATOPATHOLOGY [...] characteristic determined by the Dermatopathology Laboratory at [facility], directed by Dr. Maryam Mendoza. These tests need not be, and therefore are not, approved by the [place] Food and Drug Administration. The tests are used for clinical purposes. Billing Codes Specimen Charges Stain Charges 45085 1 3 12:30 PM CDT DERMATOPATHOLOGY LABORATORY Embedded Images 3 12:30 PM CDT DERMATOPATHOLOGY LABORATORY Pathology/Cytolo gy TISSUE SPECIMEN FROM SKIN / Unknown 12/05/2022 3:33 AM CDT 12/06/2022 6:35 AM CDT Parth Crain MD LAB - PATHOLOGY/CYTOLOGY ORDERAB LES Final Result DERMATOPATHOLOGY LABORATORY [facility] Department of Dermatology [address], [address] Floor [address] [phone] documented in this encounter Visit Diagnoses Not on filedocumented in this encounter Additional Health Concerns Infection Onset Date Last Indicated Resolved Time 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 03/15/2020 documented as of this encounter Care Teams Steam Cleaner Relationship Specialty Start Date End Date Dano Han MD [address] [place] [address] PCP - General 04/03/20 [place] [address] [address] Orthopedic Surgery 10/30/17 [place] [address] [facility] [address] [place] [address] Neuropsychology Director Cardiovascular Disease 03/28/20 [place] [address] [facility] [address] [place] [address] Rheumatology 10/26/20 documented as of this encounter
--- OUTSIDE RECORDS SUMMARY | 2024-12-17 07:37 | XMS_ITS | Encounter Summary ---
Author Organization [facility] Address [address] [place] [address] Care Team Providers Care Solution Architect Name Role Phone Cory Ayers DO Primary Care Provider Encounter Details Date Type Department Care Team (Late st Contact Info) Description 09/11/2002 Outpatient Historical [facility] Antolin Modi MD [address] [facility] [address] [address] COMPLIC-URINARY TRACT (Primary Dx) Social History Tobacco Use Types Packs/Day Years Used Date Smoking Tobacco: Never Assessed Comments Unknown Sex and Gender Information Value Date Recorded Sex Assigned at Not on file Legal Sex Female 4:21 AM COMB SETTER Gender Identity Not on file Sexual Orientation Not on file documented as of this encounter Plan of Treatment Not on file documented as of this encounter Visit Diagnoses Diagnosis Urinary complications- Primary documented in this encounter Care Teams Solution Architect Relationship Specialty Start Date End Date Cory Ayers DO PCP - General 07/27/15 documented as of this encounter
--- OUTSIDE RECORDS SUMMARY | 2024-12-17 07:37 | XMS_ITS | Encounter Summary ---
Author Organization [facility] Address [address] [place] [address] Care Team Providers Care Critical Care Technician Name Role Phone Cory Ayers DO Primary Care Provider Encounter Details Date Type Department Care Team (Late st Contact Info) Description 10/29/1999 Outpatient Historical [facility] Hiram Trivedi MD [facility] [place] [address] Social History Tobacco Use Types Packs/Day Years Used Date Smoking Tobacco: Never Assessed Comments Unknown Sex and Gender Information Value Date Recorded Sex Assigned at Not on file Legal Sex Female 4:21 AM COORDINATOR OF PLACEMENT Gender Identity Not on file Sexual Orientation Not on file documented as of this encounter Plan of Treatment Not on file documented as of this encounter Visit Diagnoses Not on filedocumented in this encounter Care Teams Critical Care Technician Relationship Specialty Start Date End Date Cory Ayers DO PCP - General 07/27/15 documented as of this encounter
--- OUTSIDE RECORDS SUMMARY | 2024-12-17 07:37 | XMS_ITS | Encounter Summary ---
Author Organization [facility] Address [address] [place] [address] Care Team Providers Care Mailhouse Operator Name Role Phone Cory Ayers DO Primary Care Provider Encounter Details Date Type Department Care Team (Late st Contact Info) Description 02/01/2000 Outpatient Historical HIS [facility] Hiram Trivedi MD [address] [place] [address] Social History Tobacco Use Types Packs/Day Years Used Date Smoking Tobacco: Never Assessed Comments Unknown Sex and Gender Information Value Date Recorded Sex Assigned at Not on file Legal Sex Female 4:21 AM PHYSICIAN ALLERGIST IMMUNOLOGIST Gender Identity Not on file Sexual Orientation Not on file documented as of this encounter Plan of Treatment Not on file documented as of this encounter Visit Diagnoses Not on filedocumented in this encounter Care Teams Mailhouse Operator Relationship Specialty Start Date End Date Cory Ayers DO PCP - General 07/27/15 documented as of this encounter
--- OUTSIDE RECORDS SUMMARY | 2024-12-17 07:37 | XMS_ITS | Encounter Summary ---
Author Organization [facility] Address [address] [facility] Attn: Epic Prelude ADT [place] [address] Care Team Providers Care Injection Molder Name Role Phone Cory Ayers DO Primary Care Provider Encounter Details Date Type Department Care Team (Late st Contact Info) Description 01/08/1994 Outpatient Historical Hiram Trivedi MD [facility] [place] [address] Social History Tobacco Use Types Packs/Day Years Used Date Smoking Tobacco: Never Assessed Comments Unknown Sex and Gender Information Value Date Recorded Sex Assigned at Not on file Legal Sex Female 4:21 AM CUTTING AND CREASING PRESS OPERATOR Gender Identity Not on file Sexual Orientation Not on file documented as of this encounter Plan of Treatment Not on file documented as of this encounter Visit Diagnoses Not on filedocumented in this encounter Care Teams Injection Molder Relationship Specialty Start Date End Date Cory Ayers DO PCP - General 07/27/15 documented as of this encounter
--- OUTSIDE RECORDS SUMMARY | 2024-12-17 07:37 | XMS_ITS | Referral Summary ---
Author Organization [facility] [place] Address [address] [place] [address] Care Team Providers Care Registered Nurse Renal Name Role Phone Dano Han MD Primary [...] on file Legal Sex Female 3:34 AM DEVELOPMENT TRAINER Gender Identity Not on file Sexual Orientation [...] of Treatment Not [place] [address] [facility] MEDICARE [address] [place] [address] Care Teams Registered Nurse Renal Relationship Specialty Start Date End Date Dano Han MD PCP - General Family Practice 08/31/21
--- OUTSIDE RECORDS SUMMARY | 2024-12-17 07:37 | XMS_ITS | Encounter Summary ---
Author Organization [facility] Address [address] [place] [address] Care Team Providers Care Groundsman Name Role Phone Cory Ayers DO Primary Care Provider Encounter Details Date Type Department Care Team (Late st Contact Info) Description 10/06/2002 Outpatient Historical HIS MRI DEPT [facility], [place] [address] [facility] [address] [place] [address] JOINT PAIN-L/LEG (Primary Dx) Social History Tobacco Use Types Packs/Day Years Used Date Smoking Tobacco: Never Assessed Comments Unknown Sex and Gender Information Value Date Recorded Sex Assigned at Not on file Legal Sex Female 4:21 AM MANAGER HRIS Gender Identity Not on file Sexual Orientation Not on file documented as of this encounter Plan of Treatment Not on file documented as of this encounter Visit Diagnoses Diagnosis Pain in joint, lower leg- Primary documented in this encounter Care Teams Groundsman Relationship Specialty Start Date End Date Cory Ayers DO PCP - General 07/27/15 documented as of this encounter
--- OUTSIDE RECORDS SUMMARY | 2024-12-17 07:37 | XMS_ITS | Clinical Summary ---
Author Organization [facility] [place] Address [address] [place] [address] Care Team Providers Care Child Center Assistant Name Role Phone Dano Han MD Primary [...] on file Legal Sex Female 3:34 AM MANUFACTURING CHIEF ENGINEER Gender Identity Not on file Sexual [...] 05/13/2019, 05/13/2019, Additional history exists Insurance MEDICARE [facility] MEDICARE [facility] Care Teams Child Center Assistant Relationship Specialty Start Date End Date Dano Han MD PCP - General Family Practice 08/31/21
--- OUTSIDE RECORDS SUMMARY | 2024-12-17 07:37 | XMS_ITS | Encounter Summary ---
Author Organization [facility] Address [address] [place] [address] Care Team Providers Care Satellite Installer Name Role Phone Cory Ayers DO Primary Care Provider Encounter Details Date Type Department Care Team (Latest Contact Info) Description 05/09/1999 Outpatient Historical [facility] [place] [address] [facility] [place] [address] Localized adiposity (Primary Dx) Social History Tobacco Use Types Packs/Day Years Used Date Smoking Tobacco: Never Assessed Comments Unknown Sex and Gender Information Value Date Recorded Sex Assigned at Not on file Legal Sex Female 4:21 AM HVAC SERVICE MANAGER Gender Identity Not on file Sexual Orientation Not on file documented as of this encounter Plan of Treatment Not on file documented as of this encounter Visit Diagnoses Diagnosis Localized adiposity- Primary documented in this encounter Care Teams Satellite Installer Relationship Specialty Start Date End Date Cory Ayers DO PCP - General 07/27/15 documented as of this encounter
--- OUTSIDE RECORDS SUMMARY | 2024-12-17 07:37 | XMS_ITS | Encounter Summary ---
Author Organization [facility] Address [address] [place] [address] Care Team Providers Care V Groove Cutter Name Role Phone Cory Ayers DO Primary Care Provider Encounter Details Date Type Department Care Team (Late st Contact Info) Description 07/12/2002 Outpatient Historical [facility] [place] [place] Support Serv. (Adt Cardiology-[facility]) [address] [place] [address] Darnell Hernandez Social History Tobacco Use Types Packs/Day Years Used Date Smoking Tobacco: Never Assessed Comments Unknown Sex and Gender Information Value Date Recorded Sex Assigned at Not on file Legal Sex Female 4:21 AM HEALTH AND WELLNESS MANAGER Gender Identity Not on file Sexual Orientation Not on file documented as of this encounter Plan of Treatment Not on file documented as of this encounter Visit Diagnoses Not on filedocumented in this encounter Care Teams V Groove Cutter Relationship Specialty Start Date End Date Cory Ayers DO PCP - General 07/27/15 documented as of this encounter
--- OUTSIDE RECORDS SUMMARY | 2024-12-17 07:37 | XMS_ITS | Encounter Summary ---
Author Organization [facility] Address [address] [place] [address] Care Team Providers Care Marketing Strategy Analyst Name Role Phone Cory Ayers DO Primary Care Provider Encounter Details Date Type Department Care Team (Late st Contact Info) Description 07/26/2002 Inpatient Historical [facility] Antolin Modi MD [address] [facility] [address] [place] [address] POSTOP VAGINAL PROLAPSE (Primary Dx) Social History Tobacco Use Types Packs/Day Years Used Date Smoking Tobacco: Never Assessed Comments Unknown Sex and Gender Information Value Date Recorded Sex Assigned at Not on file Legal Sex Female 4:21 AM JOB SERVICE SPECIALIST Gender Identity Not on file Sexual Orientation Not on file documented as of this encounter Plan of Treatment Not on file documented as of this encounter Visit Diagnoses Diagnosis 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
--- OUTSIDE RECORDS SUMMARY | 2024-12-17 07:37 | XMS_ITS | Encounter Summary ---
Author Organization [facility] Address [address] [facility] Attn: Epic Prelude ADT [place] [address] Care Team Providers Care Associate Attorney Name Role Phone Cory Ayers DO Primary Care Provider Encounter Details Date Type Department Care Team (Late st Contact Info) Description 11/26/1989 Outpatient Historical Hiram Trivedi MD [facility] [place] [address] Social History Tobacco Use Types Packs/Day Years Used Date Smoking Tobacco: Never Assessed Comments Unknown Sex and Gender Information Value Date Recorded Sex Assigned at Not on file Legal Sex Female 4:21 AM INTERNET AND E BUSINESS PROJECT MANAGER Gender Identity Not on file Sexual Orientation Not on file documented as of this encounter Plan of Treatment Not on file documented as of this encounter Visit Diagnoses Not on filedocumented in this encounter Care Teams Associate Attorney Relationship Specialty Start Date End Date Cory Ayers DO PCP - General 07/27/15 documented as of this encounter
--- OUTSIDE RECORDS SUMMARY | 2024-12-17 07:37 | XMS_ITS | Clinical Summary ---
Author Organization [facility] Address [address] [place] [address] Care Team Providers Care Vegetable Washing Machine Operator Name Role Phone Darnell Raymond MD Unavailable [phone] Stefani Mulligan MD Unavailable [phone] Dano Han MD Primary Care Provider Amalia Gregory MD Unavailable [phone] Source Comments [facility],non-owned Affiliates and Associated Physician Practices is amultiple site organization consisting of ambulatory clinics and hospital sitesin [place], [place], [place]. This disclosure is being madepursuant to the Care Everywhere program and may not contain all information available regarding this patient. Last updated 18.[facility] [employer] Allergies No known active allergies Medications * [...] on file Legal Sex Female 6:13 PM BLENDING TANK TENDER Gender Identity Female 01/16/2021 10:27 AM CDT Sexual Orientation Not on file Last Filed Vital Signs Vital Sign Reading Time Taken Comments Blood Pressure 159/91 10/08/2023 10:15 AM BLENDING TANK TENDER Pulse 76 10/08/2023 10:15 AM BLENDING TANK TENDER Temperature 36.2 C (97.1 F) 07/12/2021 8:47 AM BLENDING TANK TENDER Respiratory Rate 18 03/26/2021 10:24 AM CDT Oxygen Saturation 98% 10/26/2020 11:25 AM CDT Inhaled Oxygen Concentration - - Weight 70.3 kg (155 lb) 10/08/2023 10:15 AM BLENDING TANK TENDER Height 157.5 cm (5' 2 ) 10/08/2023 10:15 AM BLENDING TANK TENDER Body Mass Index 28.35 10/08/2023 10:15 AM BLENDING TANK TENDER Plan of Treatment Health Maintenance Due Date [...] this topic Medical Devices Implanted Type Area Tool Trouble Shooter Device Identifier Shelf Expiration Date Model / Serial / Lot Cmnt Bone Cblt 40gm Hvisc Strl Implanted:Qty: 1 on 12/15/2017 by Darnell Raymond MD at [facility] Right: Knee [employer] 06/10/2019 [id number] / / [id number] Cmpnt Fem Kn Rt Cr Cmnt Prm Vngrd Intlk Implanted:Qty: 1 on 12/15/2017 by Darnell Raymond MD at [facility] Right: Knee [employer] 09/14/2027 [id number] / / [id number] Tray Tib 71mm Kn Cocr I Beam Implanted:Qty: 1 on 12/15/2017 by Darnell Raymond MD at [facility] Right: Knee [employer] 08/07/2027 [id number] / / [id number] Cmpnt Ptlr 28mm 1 Pg Wire Ascnt Arcm Kn Implanted:Qty: 1 on 12/15/2017 by Darnell Raymond MD at [facility] Right: Knee [employer] 09/01/2022 [id number] / / [id number] Brng [id number] Vngrd Arcm Kn Ant Stab Implanted:Qty: 1 on 12/15/2017 by Darnell Raymond MD at [facility] Right: Knee [employer] 09/04/2022 [id number] / / [id number] Additional Health Concerns Infection Onset Date 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 03/15/2020 [place] [address] MEDICARE [facility] MEDICARE [facility] Advance Directives * Full Code (Latest Code Status on File) Date Activated Date Inactivated Comments 03/15/2020 5:30 AM 03/18/2020 5:47 PM * Full Code Date Activated Date Inactivated Comments 06/11/2019 10:10 PM 06/13/2019 3:14 PM * Full Code Date Activated Date Inactivated Comments 12/15/2017 2:10 PM 12/18/2017 2:18 PM Care Teams Vegetable Washing Machine Operator Relationship Specialty Start Date End Date Dano Han MD [address] [place] [id number] PCP - General 04/03/20 [place] [address] [address] [place], [place] [id number] Orthopedic Surgery 10/30/17 [place] [address] [address] [place], [place] [phone] Gasoline Engine Assembler Cardiovascular Disease 03/28/20 [place] [address] [address] Rheumatology 10/26/20
--- OUTSIDE RECORDS SUMMARY | 2024-12-17 07:37 | XMS_ITS | Encounter Summary ---
Author Organization [facility] Address [address] [place] [address] Care Team Providers Care Rental Clerk Name Role Phone Cory Ayersian Primary Care [...] on file Legal Sex Female 4:21 AM HELPER SHEAR OPERATOR Gender Identity Not on file Sexual [...] and non- Americans is available on the [facility] Intranet at: [email or web address] Select: Lab Policies and Procedures Select: Reference Ranges - GFR 03/27/2007 5:55 AM CDT [address] CHEMISTRY ORDERABLES Edited Performing Organization Address City/[facility] de Phone Number INTERFACE SYSTEM Refer to clinic/hospital department * HEMOGLOBIN AND HEMATOCRIT (03/27/2007 5:55 AM CDT) HEMOGLOBIN 13.7 11.8 - 14.8 g/dL INTERFACE SYSTEM HEMATOCRIT 40.3 35.5 - 44.0 % INTERFACE SYSTEM 03/27/2007 5:55 AM CDT [place] HEMATOLOGY ORDERABLES Edited Performing Organization Address City/State/[facility] Co de Phone Number INTERFACE SYSTEM Refer to clinic/hospital department documented in this encounter Visit Diagnoses Diagnosis Specified congenital anomalies of breast- Primary documented in this encounter Care Teams Rental Clerk Relationship Specialty Start Date End Date Cory Ayers DO PCP - General 07/27/15 documented as of this encounter
--- OUTSIDE RECORDS SUMMARY | 2024-12-17 07:37 | XMS_ITS | Encounter Summary ---
Author Organization [facility] Address [address] [place] [address] Care Team Providers Care Automatic Tire Tester Name Role Phone Cory Ayers DO Primary Care Provider Encounter Details Date Type Department Care Team (Late st Contact Info) Description 06/23/2001 Outpatient Historical HIS G [facility] INTERNISTS Hiram Trivedi MD [address] [place] [address] Social History Tobacco Use Types Packs/Day Years Used Date Smoking Tobacco: Never Assessed Comments Unknown Sex and Gender Information Value Date Recorded Sex Assigned at Not on file Legal Sex Female 4:21 AM SLP TEACHER Gender Identity Not on file Sexual Orientation Not on file documented as of this encounter Plan of Treatment Not on file documented as of this encounter Visit Diagnoses Not on filedocumented in this encounter Care Teams Automatic Tire Tester Relationship Specialty Start Date End Date Cory Ayers DO PCP - General 07/27/15 documented as of this encounter
--- OUTSIDE RECORDS SUMMARY | 2024-12-17 07:37 | XMS_ITS | Clinical Summary ---
Author Organization [facility] Address [address] [facility] [place] [address] Phone Care Team Providers Care Certified Peer Specialist Name Role Phone AgapitoCory molina Alvarez Primary [...] on file Legal Sex Female 4:21 AM SANDER SETTER Gender Identity Not on file Sexual [...] series) 2014 INFLUENZA VACCINE (#1) 2024 [place] [address] MEDICARE PART A AND B [employer] PPO Care Teams Certified Peer Specialist Relationship Specialty Start Date End Date Cory Ayers DO PCP - General 07/27/15
--- OUTSIDE RECORDS SUMMARY | 2024-12-17 07:37 | XMS_ITS | Encounter Summary ---
Author Organization [facility] Address [address] [place] [address] Care Team Providers Care Security Delivery Specialist Name Role Phone Cory Ayers DO Primary Care Provider Encounter Details Date Type Department Care Team (Late st Contact Info) Description 10/29/1999 Outpatient Historical HIS LAB,NON-PATIENT Hiram Trivedi MD [address] [place] [address] Social History Tobacco Use Types Packs/Day Years Used Date Smoking Tobacco: Never Assessed Comments Unknown Sex and Gender Information Value Date Recorded Sex Assigned at Not on file Legal Sex Female 4:21 AM HUMAN RESOURCES TEAM MEMBER Gender Identity Not on file Sexual Orientation Not on file documented as of this encounter Plan of Treatment Not on file documented as of this encounter Visit Diagnoses Not on filedocumented in this encounter Care Teams Security Delivery Specialist Relationship Specialty Start Date End Date Cory Ayers DO PCP - General 07/27/15 documented as of this encounter
--- OUTSIDE RECORDS SUMMARY | 2024-12-17 07:37 | XMS_ITS | Encounter Summary ---
Author Organization [facility] Address [address] [facility] Attn: [place] [address] Care Team Providers Care Landing Support Specialist Name Role Phone Cory Ayers DO Primary Care Provider Encounter Details Date Type Department Care Team (Late st Contact Info) Description 10/06/1997 Outpatient Historical Conversion, History Hiram Trivedi MD [address] [place] [address] Social History Tobacco Use Types Packs/Day Years Used Date Smoking Tobacco: Never Assessed Comments Unknown Sex and Gender Information Value Date Recorded Sex Assigned at Not on file Legal Sex Female 4:21 AM AGRICULTURAL EQUIPMENT MECHANIC Gender Identity Not on file Sexual Orientation Not on file documented as of this encounter Plan of Treatment Not on file documented as of this encounter Visit Diagnoses Not on filedocumented in this encounter Care Teams Landing Support Specialist Relationship Specialty Start Date End Date Cory Ayers DO PCP - General 07/27/15 documented as of this encounter
--- OUTSIDE RECORDS SUMMARY | 2024-12-17 07:37 | XMS_ITS | Encounter Summary ---
Author Organization [facility] Address [address] [place] [address] Care Team Providers Care Rotary Planer Set Up Operator Name Role Phone Cory Ayers DO Primary Care Provider Encounter Details Date Type Department Care Team (Latest Contact Info) Description 09/23/2002 Outpatient Historical HIS CARDIOPULMONARY Antolin Modi MD [address] [facility] [address] [address] SWELLING OF LIMB (Primary Dx) Social History Tobacco Use Types Packs/Day Years Used Date Smoking Tobacco: Never Assessed Comments Unknown Sex and Gender Information Value Date Recorded Sex Assigned at Not on file Legal Sex Female 4:21 AM EDGE DYER Gender Identity Not on file Sexual Orientation Not on file documented as of this encounter Plan of Treatment Not on file documented as of this encounter Visit Diagnoses Diagnosis Swelling of limb- Primary documented in this encounter Care Teams Rotary Planer Set Up Operator Relationship Specialty Start Date End Date Cory Ayers DO PCP - General 07/27/15 documented as of this encounter
== END 2024-12-17 07:28 | disposition home or self-care (01) ==
LOC: ANHIMG 07:31
PROVIDERS: PCP Family Medicine; Visit Provider Family Medicine
DX: Z12.31 Encounter for screening mammogram for malignant neoplasm of breast (principal); N63.23 Unspecified lump in the left breast, lower outer quadrant; Z98.82 Breast implant status
CPT/HCPCS: 77063; 77067

== ENCOUNTER 2025-01-06 08:08 | Outpatient (CLI) | payer MEDICARE, SELFPAY ==
--- NOTE | ~2025-01-06 | MMUS_ITS ---
EXAMINATION: MM diagnostic tammie LT w ethan, US breast LT limited HISTORY: Left breast mass follow-up TECHNIQUE: Additional 3-D tomosynthesis images of the left breast were performed and synthetic 2-D im ages were generated. CAD analysis was submitted and interpreted. High resolution Limited left breast ultrasound was performed. COMPARISON: Comparison to multiple prior studies sequentially, with oldest reviewed study dated 09/23. BREAST PARENCHYMAL COMPOSITION: Not dense: There are scattered areas of fibroglandular density. FINDINGS: MAMMOGRAPHIC FINDINGS: There is a low-density mass in the upper outer quadrant of the left breast, anterior third in the per iareolar location. There are no suspicious calcifications or architectural distortion. No nipple inve rsion. ULTRASOUND: Limited left breast ultrasound: At 3:00 in the subareolar location there is an oval hypoechoic parall el oriented mass with heterogeneous internal echotexture measuring 8 x 5 x 3 mm. No internal vascular ity or posterior features. This likely corresponds to the mammographic finding. IMPRESSION: 1. Probable benign left breast mass at 3:00 in the subareolar location measuring 8 mm. 2. Recommend 6 month follow-up diagnostic left mammogram and Limited left breast ultrasound BI-RADS category 3, probably benign findings. Reviewed, dictated and finalized at location A. IMPRESSION: 1. Probable benign left breast mass at 3:00 in the subareolar location measurin g 8 mm. 2. Recommend 6 month follow-up diagnostic left mammogram and Limited left breas t ultrasound BI-RADS category 3, probably benign findings.
== END 2025-01-06 08:09 | disposition home or self-care (01) ==
LOC: ANHIMG 08:09
PROVIDERS: PCP Family Medicine; Visit Provider Family Medicine
DX: R92.8 Other abnormal and inconclusive findings on diagnostic imaging of breast (principal)
CPT/HCPCS: 76642; 77061; 77065; G0279

== ENCOUNTER 2025-02-15 17:42 | Inpatient (IN) | payer MEDICARE, SELFPAY ==
--- NOTE | ~2025-02-15 | CT_ITS ---
CLINICAL INDICATION: Lower abdominal pain COMPARISON: 10/10/2024. TECHNIQUE: Multiple contiguous axial images of the abdomen and pelvis were performed following the ad ministration of with 100 mL Omnipaque-350 intravenous contrast The dose-length product (DLP) was 494.32 mGy-cm. Automated exposure control and iterative reconstruction technique were employed. FINDINGS/OBSERVATIONS: Visualized lower thorax: Trace bibasilar atelectasis. The remainder of the bilateral lung bases are clear. The heart is enlarged, without pericardial effusion. Liver: The liver demonstrates heterogeneous enhancement and is not enlarged. Gallbladder and biliary system: The gallbladder is distended, and otherwise unremarkable. Redemonstration of common bile duct dilatation measuring 11 mm (compared with 9.2 mm on the previous study Pancreas: The pancreas enhances homogeneously with prominence of the main pancreatic duct, unchanged from prior . Spleen: The spleen enhances homogeneously and is not enlarged. Kidneys: The bilateral kidneys enhance symmetrically without hydronephrosis or renal calculi. Cortical and medullary atrophy are noted. Adrenal glands: Unremarkable. Gastrointestinal tract: Edematous mural thickening within the rectum, an interval change from prior. Appendix: The appendix is not definitively visualized. However, no pericecal inflammatory change is identified suggest the presence of acute appendicitis. Vasculature: Calcified atherosclerotic disease with scattered mural thrombus, most prominent posterior to the orig in of the superior mesenteric artery. Lymph nodes: No pathologically enlarged or morphologically suspicious lymph nodes within the retroperitoneum or at the root of the mesentery. Pelvic structures: Significant mural thickening within the bladder with surrounding inflammatory change. The uterus is atrophic or surgically absent. Body wall and musculoskeletal: Fat and likely omental containing umbilical hernia. Levoscoliotic curvature of the lumbar spine, markedly distorting the retroperitoneum. IMPRESSION: Edematous mural thickening within the rectum, an interval change from prior. Significant mural thickening within the bladder with surrounding inflammatory change for which cystit is is suspected. Redemonstration of common bile duct dilatation to 11 mm, increased from 9 mm on the previous study. Heterogeneous enhancement of the liver, unchanged from prior. Reviewed, dictated and finalized at location A. IMPRESSION: Edematous mural thickening within the rectum, an interval change from prior. Significant mural thickening within the bladder with surrounding inflammatory c hange for which cystitis is suspected. Redemonstration of common bile duct dilatation to 11 mm, increased from 9 mm on the previous study. Heterogeneous enhancement of the liver, unchanged from prior.
--- NOTE | ~2025-02-15 | XR_ITS ---
Portable chest x-ray Comparison: 02/15/2025 Clinical History: Crackles, wheezes Findings: Lungs are clear, without focal consolidation or pleural effusion. Cardiomediastinal silho uette is stable, with loop recorder. Bones and soft tissues are unremarkable. Impression: Clear lungs. Stable cardiomegaly with loop recorder. Reviewed, dictated and finalized at location . Impression: Clear lungs. Stable cardiomegaly with loop recorder.
--- NOTE | ~2025-02-15 | XR_ITS ---
XR chest 1V portable Ordering provider: Milo Liz MD History: 84 years Female with . SOB, WEAKNESS WITH ABDOMINAL, AND BACK PAIN . Comparison: October 10, 2024 FINDINGS: MEDIASTINUM: The cardiac silhouette is slightly enlarged. slight widening of the mediastinum most lik leela vascular. LUNGS: No infiltrates, effusions or pneumothorax. Underlying fibrotic changes. OTHER: No free air under the diaphragm. Dextroscoliosis with degenerative changes of the spine IMPRESSION: No change from previous examination. No acute cardiopulmonary pathology Reviewed, dictated and finalized at location A.
--- OUTSIDE RECORDS SUMMARY | 2025-02-15 17:45 | XMS_ITS | Encounter Summary ---
Author Organization [facility] Address [address] [place] [address] Care Team Providers Care Technical Business Systems Analyst Name Role Phone Cory Ayers DO Primary Care Provider Encounter Details Date Type Department Care Team (Late st Contact Info) Description 07/12/2002 Outpatient Historical [facility] Support Serv. (Adt Cardiology-[facility]) [address] [place] [id number] Darnell Hernandez Social History Tobacco Use Types Packs/Day Years Used Date Smoking Tobacco: Never Assessed Comments Unknown Sex and Gender Information Value Date Recorded Sex Assigned at Not on file Legal Sex Female 4:21 AM EXTRUDER OPERATOR Gender Identity Not on file Sexual Orientation Not on file documented as of this encounter Plan of Treatment Not on file documented as of this encounter Visit Diagnoses Not on filedocumented in this encounter Care Teams Technical Business Systems Analyst Relationship Specialty Start Date End Date Cory Ayers DO PCP - General 07/27/15 documented as of this encounter
--- OUTSIDE RECORDS SUMMARY | 2025-02-15 17:45 | XMS_ITS | Encounter Summary ---
Author Organization [facility] Address [address] [place] [address] Care Team Providers Care Tieing Machine Operator Name Role Phone Cory Ayers DO Primary Care Provider Encounter Details Date Type Department Care Team (Late st Contact Info) Description 07/26/2002 Inpatient Historical [facility] Antolin Modi MD [address] [facility] [address] [place] [address] POSTOP VAGINAL PROLAPSE (Primary Dx) Social History Tobacco Use Types Packs/Day Years Used Date Smoking Tobacco: Never Assessed Comments Unknown Sex and Gender Information Value Date Recorded Sex Assigned at Not on file Legal Sex Female 4:21 AM PATIENT SERVICE REP Gender Identity Not on file Sexual Orientation Not on file documented as of this encounter Plan of Treatment Not on file documented as of this encounter Visit Diagnoses Diagnosis 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
--- OUTSIDE RECORDS SUMMARY | 2025-02-15 17:45 | XMS_ITS | Encounter Summary ---
Author Organization [facility] Address [address] [place] [address] Care Team Providers Care Grades 9 12 Tutor Name Role Phone Cory Ayers DO Primary Care Provider Encounter Details Date Type Department Care Team (Late st Contact Info) Description 10/29/1999 Outpatient Historical [facility],NON-PATIENT Hiram Trivedi MD [address] [place] [address] Social History Tobacco Use Types Packs/Day Years Used Date Smoking Tobacco: Never Assessed Comments Unknown Sex and Gender Information Value Date Recorded Sex Assigned at Not on file Legal Sex Female 4:21 AM SERVICE TRAINER Gender Identity Not on file Sexual Orientation Not on file documented as of this encounter Plan of Treatment Not on file documented as of this encounter Visit Diagnoses Not on filedocumented in this encounter Care Teams Grades 9 12 Tutor Relationship Specialty Start Date End Date Cory Ayers DO PCP - General 07/27/15 documented as of this encounter
--- OUTSIDE RECORDS SUMMARY | 2025-02-15 17:45 | XMS_ITS | Continuity of Care Document ---
Author Organization [facility] Address [address] [place] [address] Phone Care Team Providers Care Passenger Brakeman Name Role Phone Carranza OD, Indra Unavailable Unavailable Procedures Procedure Date Eye Exam Established Pt No Script Advance Directives Directive Yes / No Effective Date File Name No Information Encounters Encounter Description Practice Location Reason(s) For Visit Diagnoses Date Provider Providers Copied on Encounter [facility], [address], [place], [place], [id number], [place] tel:[phone] [facility] No Information 9-200 9 Carranza OD Indra. [address], [place], [address], [place]. tel:[phone] Family History Family Member Type Diagnosis Age At Onset No Information Payers Payer name Insurance type Covered democrat ID Authoriza tion(s) [place] [id number] [place] Commercial [place] [id number] Social History Type Description Quantity Date Captured [...]
--- OUTSIDE RECORDS SUMMARY | 2025-02-15 17:45 | XMS_ITS | Encounter Summary ---
Author Organization [facility] Address [address] [place] [address] Care Team Providers Care Industrial Garage Servicer Name Role Phone Cory Ayers DO Primary Care Provider Encounter Details Date Type Department Care Team (Late st Contact Info) Description 09/17/2002 Outpatient Historical [facility], [address] Antolin Modi MD [address] [place] [address] [address] [address] URIN TRACT INFECTION NOS (Primary Dx) Social History Tobacco Use Types Packs/Day Years Used Date Smoking Tobacco: Never Assessed Comments Unknown Sex and Gender Information Value Date Recorded Sex Assigned at Not on file Legal Sex Female 4:21 AM SIGNS CLEANER Gender Identity Not on file Sexual Orientation Not on file documented as of this encounter Plan of Treatment Not on file documented as of this encounter Visit Diagnoses Diagnosis Urinary tract infection, site not specified- Primary documented in this encounter Care Teams Industrial Garage Servicer Relationship Specialty Start Date End Date Cory Ayers DO PCP - General 07/27/15 documented as of this encounter
--- OUTSIDE RECORDS SUMMARY | 2025-02-15 17:45 | XMS_ITS | Encounter Summary ---
Author Organization [facility] Address [address] [place] [address] Care Team Providers Care Fishing Tool Operator Name Role Phone Cory Ayers DO Primary Care Provider Darnell Raymond MD Unavailable Esthela Barksdale MD Primary Care Provider Un available Cory Ayers DO Primary Care Provider Cory Ayers DO Primary Care Provider Dano Han MD Primary Care Provider Stefani Mulligan MD Unavailable [phone] Cory Ayers DO Primary Care Provider [phone] Dano Han MD Primary Care Provider Amalia Gregory MD Unavailable [phone] Encounter Details Date Type Department Care Team (Late st Contact Info) Description 11/26/2017 [facility] Outpatient Visit [facility] [address] [place] [address] [place] [address] [address] Social History Tobacco Use Types Packs/Day Years Used Date Smoking Tobacco: Never Smokeless Tobacco: Never Alcohol Use Standard Drinks/Week Comments No 0 (1 standard drink = 0.6 oz pur e alcohol) Comments Unknown Sex and Gender Information Value Date Recorded Sex Assigned at Not on file Legal Sex Female 6:13 PM SAT INSTRUCTOR Gender Identity Female 01/16/2021 10:27 AM CDT [...] documented as of this encounter Care Teams Fishing Tool Operator Relationship Specialty Start Date End Date Cory Ayers DO PCP - General Internal Medicine 10/30/17 06/10/19 Esthela Barksdale MD [address] [place] [address] PCP - General Family Medicine 07/07/19 01/16/20 Cory Ayers DO [address] [address] PCP - General 01/17/20 03/19/20 Cory Ayers DO [address] [place] [address] PCP - General 03/23/20 03/27/20 Dano [place] [address] PCP - General Family Medicine 03/28/20 03/30/20 Cory Ayers DO [address] [address] PCP - General 03/31/20 04/02/20 Dano Han MD [address] [place] [address] PCP - General 04/03/20 [place] [address] [place] [address] Orthopedic Surgery 10/30/17 [place] [address] [place] [address] Drencher Cardiovascular Disease 03/28/20 [place] [address] [place] [address] Rheumatology 10/26/20 documented as of this encounter
--- OUTSIDE RECORDS SUMMARY | 2025-02-15 17:45 | XMS_ITS | Encounter Summary ---
Author Organization [facility] Address [address] [facility] [place] [address] Care Team Providers Care Blender Helper Name Role Phone Darnell Raymond MD Unavailable Stefani Mulligan MD Unavailable [phone] Dano Han MD Primary Care Provider Amalia Gregory MD Unavailable [phone] Encounter Details Date Type Department Care Team (Late st Contact Info) Description 01/02/2023 Lab Requisition [facility] - DermPath Lab [address] [facility] [place] [address] Parth Crain MD [address] [place] [address] Social History Tobacco Use Types Packs/Day Years Used Date Smoking Tobacco: Never Smokeless Tobacco: Never Alcohol Use Standard Drinks/Week Comments No 0 (1 standard drink = 0.6 oz pur e alcohol) Comments Unknown Sex and Gender Information Value Date Recorded Sex Assigned at Not on file Legal Sex Female 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 SKIN, left lat lower leg: BASAL CELL CARCINOMA, NODULAR TYPE (C44.719) 3 5:48 PM CDT DERMATOPATHOLOGY LABORATORY at 1748 CDT Clinical History Plaque r/o BCC/SCC 3 5:48 PM CDT DERMATOPATHOLOGY LABORATORY Gross Description Specimen A: Received is one formalin filled container labeled with the patient's name and designated left lat lower leg. The specimen consists of two shaved biopsies measuring [id number] and 6x6x1 mm. Jar 0. 3 5:48 [...] characteristic determined by the Dermatopathology Laboratory at [facility], directed by Dr. Maryam Mendoza. These tests need not be, and therefore are not, approved by the [place] Food and Drug Administration. The tests are used for clinical purposes. Billing Codes Specimen Charges Stain Charges 18462 1 3 5:48 PM CDT DERMATOPATHOLOGY LABORATORY Embedded Images 3 5:48 PM CDT DERMATOPATHOLOGY LABORATORY Pathology/Cytolog y TISSUE SPECIMEN FROM SKIN / Unknown 01/01/2023 01/02/2023 8:56 AM CDT Parth Crain MD LAB - PATHOLOGY/CYTOLOGY ORDERAB LES Final Result DERMATOPATHOLOGY LABORATORY [facility] Department of Dermatology [facility] Medicine [address] [place] [address], [address] [phone] documented in this encounter Visit Diagnoses Not on filedocumented in this encounter Additional Health Concerns Infection Onset Date Last Indicated Resolved Time 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 03/15/2020 documented as of this encounter Care Teams Blender Helper Relationship Specialty Start Date End Date Dano Han MD [address] [place] [address] PCP - General 04/03/20 [place] [address] [address] [address] Orthopedic Surgery 10/30/17 [place] [address] [facility] [address] [place] [address] It Technical Architect Cardiovascular Disease 03/28/20 [place] [address] [facility] [address] [place] [address] Rheumatology 10/26/20 documented as of this encounter
--- OUTSIDE RECORDS SUMMARY | 2025-02-15 17:45 | XMS_ITS | Continuity of Care Document ---
Author Organization [facility] Address [address] [place] [address] [address] [place] [address] Phone Care Team Providers Care Sales And Marketing Analyst Name Role Phone Richi PT,MPT,ATC, Daniel Unavailable Unavai lable Procedures Procedure Date Neuromuscular Re-Ed Therapeutic Activities Therapeutic Activities Neuromuscular Re-Ed Therapeutic Exercise Therapeutic Activities Neuromuscular Re-Ed Therapeutic Exercise Therapeutic Activities Neuromuscular Re-Ed Therapeutic Activities Neuromuscular Re-Ed Therapeutic Exercise Therapeutic Exercise Neuromuscular Re-Ed Therapeutic Activities Neuromuscular Re-Ed Therapeutic Activities Therapeutic Exercise Progress Note Therapeutic Activities Neuromuscular Re-Ed Therapeutic Exercise Therapeutic Activities Therapeutic Exercise Neuromuscular Re-Ed Therapeutic Exercise Neuromuscular Re-Ed Therapeutic Activities Therapeutic Activities Neuromuscular Re-Ed Therapeutic Exercise Therapeutic Exercise Neuromuscular Re-Ed Therapeutic Activities Therapeutic Activities Neuromuscular Re-Ed Therapeutic Exercise Neuromuscular Re-Ed Therapeutic Activities Therapeutic Exercise Neuromuscular Re-Ed Therapeutic Activities Therapeutic Exercise Therapeutic Exercise Neuromuscular Re-Ed Therapeutic Activities Neuromuscular Re-Ed Therapeutic Activities PT Evaluation High Complexity THERAPEUTIC EXERCISES MANUAL THERAPY PT EVALUATION THERAPEUTIC EXERCISES MANUAL THERAPY Carrying, Moving And Handling Objects-Cu rrent Carrying, Moving And Handling Objects-Go al Medications Name Dose Freq Route DOC Jun Pain Assess DOC F/U NOT Documented NO Re ason DOC No Falls or 1 Fall w/o Injury Screened f or Fall Risk Advance Directives Directive Yes / No Effective Date File Name No Information Encounters Encounter Description Practice Location Reason(s) For Visit Diagnoses Date Provider Providers Copied on Encounter [facility], [place], [place], [id number], tel:[phone] [place] No Information 1 [facility]. [facility], [place], [place], [address], tel:[phone] [place] No Information 1 Richi Lamar [place], . [facility], [place], [place], [address], tel:[phone] [place] No Information 1 Richi Sanchez. [place], . [facility], [address], [place], [place], [address], tel:[phone] [place] No Information 0 1 Richi Lamar , [place], [place]. [facility], [place], [place], [address], [place] tel:[phone] [place] No Information 1 Richi Lamar , [place], [place]. [facility], [place], [place], [address], [place] tel:[phone] [place] No Information 1 Richi Lamar , [place], [place]. [facility], [place], [place], [address], [place] tel:[phone] [place] No Information 1 Raymond Green. . [facility], [place], [place], [address], [place] tel:[phone] [place] No Information 1 Richi Lamar , [place], [place]. [facility], [place], [place], [address], [place] tel:[phone] [place] No Information 1 Richi Lamar [place], [place]. [facility], [place], [place], [address], [place] tel:[phone] [place] No Information 1 Richi Lamar , [place], [place]. [facility], [place], [place], [address], [place] tel:[phone] [place] No Information 1 Richi Lamar [place], [place]. [facility], [place], [place], [address], [place] tel:[phone] [place] No Information 1 Richi Lamar [place], [place]. [facility], [place], [place], [address], [place] tel:[phone] [place] No Information 1 Stoddard Daniel. , [place], [place]. [facility], [address], [place], [place], [address], tel:[phone] [place] No Information 1 Stoddard Daniel. , [place], [place]. [facility], [place], [place], [address], [place] tel:[phone] [place] No Information 1 Stoddard Daniel. , [place], [place]. [facility], [address], [place], [place], [address], [place] tel:[phone] [place] No Information 1 Stoddard Daniel. , [place], [place]. [facility], [address], [place], [place], [address], [place] tel:[phone] [place] No Information 1 Stoddard Daniel. , [place], [place]. [facility], [address], [place], [place], [address], [place] tel:[phone] [place] No Information 3 Chetan Lynda. [address] [place] [address], [address], [place], [facility], . tel: [phone] Referring Provider: Sean Graff, [address] [place] [address] [address], [place], [facility]. tel:[phone] [facility], [place], [place], [address], [place] tel:[phone] Julian Pain in joint involving pelvic region and thigh 3 Chetan Lynda. [address] [facility], [address], [place], [facility], . tel: [phone] Referring Provider: Sean Graff, [address] [place] [address] [address], [place], [place], [facility]. tel:[phone] Family History Family Member Type Diagnosis Age At Onset No Information Payers Payer name Insurance type Covered democrat ID Authoriza tion(s) Medicare [place] MB [id number] [facility] [id number] Social History Type Description Quantity Date Captured Comments Sex Female Smoking Status No Information Chief Complaint And Reason For Visit No Information Reason For Referral Reason For Referral No Information History Of Present Illness Encounter Date Complaint History Of Prese nt Illness No Information Functional Status Date Functional Assessmen t No Information Instructions Date Instruction Additional Infor nisha Giving encouragement to exercise Related to Overweight Giving encouragement to exercise Related to Overweight Assessments Type Assessment Date No Information Patient Care Teams Name Effective Dates (start - stop) Status Members No Information
--- OUTSIDE RECORDS SUMMARY | 2025-02-15 17:45 | XMS_ITS | Referral Summary ---
Author Organization [facility] Address [address] [place] [address] Care Team Providers Care Test Developer Name Role Phone Dano Han MD Primary [...] on file Legal Sex Female 3:34 AM QUALITY COMPLIANCE CONSULTANT Gender Identity Not on file Sexual [...] 11:02 AM CDT Height 160 cm (5' 3) 12/15/2021 11:02 AM CDT Body Mass Index 25.83 12/15/2021 11:02 AM CDT Plan of Treatment Not on file Insurance MEDICARE [facility] MEDICARE [facility] [place] [address] Care Teams Test Developer Relationship Specialty Start Date End Date Dano Han MD PCP - General Family Practice 08/31/21
--- OUTSIDE RECORDS SUMMARY | 2025-02-15 17:45 | XMS_ITS | Encounter Summary ---
Author Organization [facility] Address [address] [place] [address] Care Team Providers Care Brush And Broom Clipper Name Role Phone Cory Ayers DO Primary Care Provider Encounter Details Date Type Department Care Team (Late st Contact Info) Description 10/06/2002 Outpatient Historical [facility] MRI DEPT [facility], [place] [address] [facility] [address] [place] [address] JOINT PAIN-L/LEG (Primary Dx) Social History Tobacco Use Types Packs/Day Years Used Date Smoking Tobacco: Never Assessed Comments Unknown Sex and Gender Information Value Date Recorded Sex Assigned at Not on file Legal Sex Female 4:21 AM ALTERNATIVE 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
--- OUTSIDE RECORDS SUMMARY | 2025-02-15 17:45 | XMS_ITS | Encounter Summary ---
Author Organization [facility] Address [address] [place] [address] Care Team Providers Care Supervisor Hand Silvering Name Role Phone Cory Ayers DO Primary Care Provider Encounter Details Date Type Department Care Team (Late st Contact Info) Description 10/29/1999 Outpatient Historical [facility] Hiram Trivedi MD [facility] [place] [address] Social History Tobacco Use Types Packs/Day Years Used Date Smoking Tobacco: Never Assessed Comments Unknown Sex and Gender Information Value Date Recorded Sex Assigned at Not on file Legal Sex Female 4:21 AM SAW MAKER Gender Identity Not on file Sexual Orientation Not on file documented as of this encounter Plan of Treatment Not on file documented as of this encounter Visit Diagnoses Not on filedocumented in this encounter Care Teams Supervisor Hand Silvering Relationship Specialty Start Date End Date Cory Ayers DO PCP - General 07/27/15 documented as of this encounter
--- OUTSIDE RECORDS SUMMARY | 2025-02-15 17:45 | XMS_ITS | Encounter Summary ---
Author Organization [facility] Address [address] [facility] [address] Care Team Providers Care Seo Manager Name Role Phone Darnell Raymond MD Unavailable [phone] Stefani Mulligan MD Unavailable [phone] Dano Han MD Primary Care Provider Amalia Gregory MD Unavailable [phone] Encounter Details Date Type Department Care Team (Late st Contact Info) Description 12/06/2022 Lab Requisition [facility] Care DermPath Lab [address] [facility] [place] [address] Parth Crain MD [facility] [place] [address] Social History Tobacco Use Types Packs/Day Years Used Date Smoking Tobacco: Never Smokeless Tobacco: Never Alcohol Use Standard Drinks/Week Comments No 0 (1 standard drink = 0.6 oz pur e alcohol) Comments Unknown Sex and Gender Information Value Date Recorded Sex Assigned at Not on file Legal 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 Please Check Margins. 3 12:30 PM CDT DERMATOPATHOLOGY LABORATORY Gross Description Specimen A: Received is one formalin filled container labeled with the patient's name and designated right earlobe. The specimen consists of a shave biopsy measuring [id number], [id number] and [id number]. Jar 0. 3 12:30 PM CDT DERMATOPATHOLOGY [...] by the Dermatopathology Laboratory at [facility], directed by Dr. Maryam Mendoza. These tests need not be, and therefore are not, approved by the [place] Food and Drug Administration. The tests are used for clinical purposes. Billing Codes Specimen Charges Stain Charges 69409 1 3 12:30 PM CDT DERMATOPATHOLOGY LABORATORY Embedded Images 3 12:30 PM CDT DERMATOPATHOLOGY LABORATORY Pathology/Cytolo gy TISSUE SPECIMEN FROM SKIN / Unknown 12/05/2022 3:33 AM CDT 12/06/2022 6:35 AM CDT Parth Crain MD LAB - PATHOLOGY/CYTOLOGY ORDERAB LES Final Result DERMATOPATHOLOGY LABORATORY [facility] Department of Dermatology [address], [address] [phone] documented in this encounter Visit Diagnoses Not on filedocumented in this encounter Additional Health Concerns Infection Onset Date Last Indicated Resolved Time 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 03/15/2020 documented as of this encounter Care Teams Seo Manager Relationship Specialty Start Date End Date Dano Han MD [address] [place] [id number] PCP - General 04/03/20 [place] [address] [address] Orthopedic Surgery 10/30/17 [place] [address] [facility] [address] [place] [address] 4Th Grade Math Teacher Cardiovascular Disease 03/28/20 [place] [address] [facility] [address] [place] [address] Rheumatology 10/26/20 documented as of this encounter
--- OUTSIDE RECORDS SUMMARY | 2025-02-15 17:45 | XMS_ITS | Encounter Summary ---
Author Organization [facility] Address [address] [facility] Attn: Epic Prelude ADT [place] [address] Care Team Providers Care Assistant General Manager Name Role Phone Cory Ayers DO Primary Care Provider Encounter Details Date Type Department Care Team (Late st Contact Info) Description 01/08/1994 Outpatient Historical Hiram Trivedi MD [facility] [place] [address] Social History Tobacco Use Types Packs/Day Years Used Date Smoking Tobacco: Never Assessed Comments Unknown Sex and Gender Information Value Date Recorded Sex Assigned at Not on file Legal Sex Female 4:21 AM PERFORMANCE TEST ARCHITECT Gender Identity Not on file Sexual Orientation Not on file documented as of this encounter Plan of Treatment Not on file documented as of this encounter Visit Diagnoses Not on filedocumented in this encounter Care Teams Assistant General Manager Relationship Specialty Start Date End Date Cory Ayers DO PCP - General 07/27/15 documented as of this encounter
--- OUTSIDE RECORDS SUMMARY | 2025-02-15 17:45 | XMS_ITS | Encounter Summary ---
Author Organization [facility] Address [address] [place] [address] Care Team Providers Care Life Coach Name Role Phone Cory Ayers DO Primary Care Provider Encounter Details Date Type Department Care Team (Late st Contact Info) Description 06/23/2001 Outpatient Historical [facility] Hiram Trivedi MD [address] [place] [address] Social History Tobacco Use Types Packs/Day Years Used Date Smoking Tobacco: Never Assessed Comments Unknown Sex and Gender Information Value Date Recorded Sex Assigned at Not on file Legal Sex Female 4:21 AM SLOT FLOOR ATTENDANT Gender Identity Not on file Sexual Orientation Not on file documented as of this encounter Plan of Treatment Not on file documented as of this encounter Visit Diagnoses Not on filedocumented in this encounter Care Teams Life Coach Relationship Specialty Start Date End Date Cory Ayers DO PCP - General 07/27/15 documented as of this encounter
--- OUTSIDE RECORDS SUMMARY | 2025-02-15 17:45 | XMS_ITS | Encounter Summary ---
Author Organization [facility] Address [address] [facility] Attn: [place] [address] Care Team Providers Care Construction Superintendent Name Role Phone Cory Ayers DO Primary Care Provider Encounter Details Date Type Department Care Team (Late st Contact Info) Description 10/06/1997 Outpatient Historical Conversion, History Hiram Trivedi MD [address] [place] [id number] Social History Tobacco Use Types Packs/Day Years Used Date Smoking Tobacco: Never Assessed Comments Unknown Sex and Gender Information Value Date Recorded Sex Assigned at Not on file Legal Sex Female 4:21 AM GRADES 1 6 TUTOR Gender Identity Not on file Sexual Orientation Not on file documented as of this encounter Plan of Treatment Not on file documented as of this encounter Visit Diagnoses Not on filedocumented in this encounter Care Teams Construction Superintendent Relationship Specialty Start Date End Date Cory Ayers DO PCP - General 07/27/15 documented as of this encounter
--- OUTSIDE RECORDS SUMMARY | 2025-02-15 17:45 | XMS_ITS | Encounter Summary ---
Author Organization [facility] Address [address] [place] [address] Care Team Providers Care Mine Safety Manager Name Role Phone Cory Ayers DO Primary Care Provider Encounter Details Date Type Department Care Team (Latest Contact Info) Description 05/09/1999 Outpatient Historical HIS [place] [address] [facility] [place] [address] Localized adiposity (Primary Dx) Social History Tobacco Use Types Packs/Day Years Used Date Smoking Tobacco: Never Assessed Comments Unknown Sex and Gender Information Value Date Recorded Sex Assigned at Not on file Legal Sex Female 4:21 AM NATIONAL BUSINESS DIRECTOR Gender Identity Not on file Sexual Orientation Not on file documented as of this encounter Plan of Treatment Not on file documented as of this encounter Visit Diagnoses Diagnosis Localized adiposity- Primary documented in this encounter Care Teams Mine Safety Manager Relationship Specialty Start Date End Date Cory Ayers DO PCP - General 07/27/15 documented as of this encounter
--- OUTSIDE RECORDS SUMMARY | 2025-02-15 17:45 | XMS_ITS | Clinical Summary ---
Author Organization [facility] Address [address] [facility] [place] [address] Phone Care Team Providers Care Terminal Carman Name Role Phone AgapitoCory molina Alvarez Primary [...] on file Legal Sex Female 4:21 AM SIGN WIRER Gender Identity Not on file Sexual Orientation [...] 1-dose 75+ series) 2014 INFLUENZA VACCINE (#1) 2025 [place] [address] MEDICARE PART A AND B [employer] PPO Care Teams Terminal Carman Relationship Specialty Start Date End Date Cory Ayers DO PCP - General 07/27/15
--- OUTSIDE RECORDS SUMMARY | 2025-02-15 17:45 | XMS_ITS | Encounter Summary ---
Author Organization [facility] Address [address] [place] [address] Care Team Providers Care Housemaid Name Role Phone Cory Ayers DO Primary [...] on file Legal Sex Female 4:21 AM TYPEWRITER MECHANIC Gender Identity Not on file Sexual Orientation Not on file documented as of this encounter Plan of Treatment Not on file documented as of this encounter Visit Diagnoses Diagnosis Disorders of bursae and tendons in shoulder region, unspecified- Primary documented in this encounter Care Teams Housemaid Relationship Specialty Start Date End Date Cory Ayers DO PCP - General 07/27/15 documented as of this encounter
--- OUTSIDE RECORDS SUMMARY | 2025-02-15 17:45 | XMS_ITS | Encounter Summary ---
Author Organization [facility] Address [address] [place] [address] Care Team Providers Care Electron Beam Welding Machine Operator Name Role Phone Cory Ayers DO Primary Care Provider Encounter Details Date Type Department Care Team (Latest Contact Info) Description 09/23/2002 Outpatient Historical HIS CARDIOPULMONARY Antolin Modi MD [address] [facility] [address] [address] SWELLING OF LIMB (Primary Dx) Social History Tobacco Use Types Packs/Day Years Used Date Smoking Tobacco: Never Assessed Comments Unknown Sex and Gender Information Value Date Recorded Sex Assigned at Not on file Legal Sex Female 4:21 AM HUMAN PROJECTILE Gender Identity Not on file Sexual Orientation Not on file documented as of this encounter Plan of Treatment Not on file documented as of this encounter Visit Diagnoses Diagnosis Swelling of limb- Primary documented in this encounter Care Teams Electron Beam Welding Machine Operator Relationship Specialty Start Date End Date Cory Ayers DO PCP - General 07/27/15 documented as of this encounter
--- OUTSIDE RECORDS SUMMARY | 2025-02-15 17:45 | XMS_ITS | Encounter Summary ---
Author Organization [facility] Address [address] [facility] [place] [address] Care Team Providers Care Taper Operator Name Role Phone Darnell Raymond MD Unavailable Stefani Mulligan MD Unavailable [phone] Dano Han MD Primary Care Provider Amalia Gregory MD Unavailable [phone] Reason for Visit * Reason Comments Follow-up RV .. R TKA 12-15-17Xr ay taken todayLast seen 2022 Encounter Details Date Type Department Care Team (Latest Contact Info) Description 02/03/2025 11:50 AM CDT Office Visit [facility] Orthopedics [address] [facility], [address] [address] Rex Gresham PA-C [address] [address] Presence of right artificial knee joint (Primary Dx); Lumbar spondylosis; Primary osteoarthritis of right hip Social History Tobacco Use Types Packs/Day Years Used Date Smoking Tobacco: Never Smokeless Tobacco: Never Tobacco Cessation:Counseling Given: Not Answered Alcohol Use Standard Drinks/Week Comments No 0 (1 standard drink = 0.6 oz pur e alcohol) Comments Unknown Sex and Gender Information Value Date Recorded Sex Assigned at Not on file 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 Answer Entry Date Author No 03/15/2020 7:33 AM LACEYT Jennifer Mi RN documented in this encounter Progress Notes * Rex Gresham PA-C - 02/03/2025 1:25 PM CDT Right tka 2018 , sig scoliosis / h/o right stroke Fell last week can actively extend and put weight on it bt unstable due to stenosis * Neeraj Owens MA - 02/03/2025 11:33 AM CDT Chief Complaint Patient presents with Follow-up RV .. R TKA 5-7-18 Xray taken today Last seen 2022 documented in this encounter H&P Notes * Rex Gresham PA-C - 02/05/2025 1:22 PM CDT DATE OF SERVICE: 02/03/2025 SUBJECTIVE: This is an 84-year-old woman who had some multiple medical issues going on, here at the office for the right knee. 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 They stated about maybe a week ago she slipped and fell in the shower and started to develop right knee pain. She is having a difficult time getting up and walking around with some discomfort, but she can put weight on it, but she is very unstable when she gets up and walks around. She does have a significant history of back issues. She did have a history of right-sided stroke. She does not exercise. She does not ambulate a lot. She is here today just to make sure everything is okay and nothing is broken. CLINICAL EXAMINATION: Sitting in a wheelchair, she can actively extend. She has some subtle point tenderness along the medial joint line and in the pes area. She has full active extension and she can keep the leg up. The knee has no evidence of an effusion. No signs of infection. She has excellent range of motion of the hips. When I straight leg raise, it does some mild discomfort in the buttock area. IMAGING: Radiographs of her knee show well-implanted and cemented anterior stabilized knee, well fixated, very good alignment. I did get x-rays of her right hip and her low back. Hip x-ray shows some early arthritis. She does have some osteopenia noted on her radiographs. Her back x-ray is significant. She has a significant thoracolumbar scoliosis with significant degenerative changes. IMPRESSION: Significant spinal stenosis with leg weakness, recent fall with deconditioning. PLAN: She definitely needs to work on some exercises. I have discussed this with her today, stationary bike, recumbent bike anything in the water. I am going to look into someone that can look at her back. She may not be a strong surgical candidate. Certainly, she definitely needs to use a walker with her ambulation, but the knee is normal and there is no evidence of any fractures. SUKUMAR Yanez/MedArabella #: [id number] documented in this encounter Miscellaneous Notes * Addendum Note - Miller, Bita A, CDL B DRIVER - 02/14/2025 4:35 AM CDTAddended by: BITA MILLER on: 02/14/2025 04:35 AM Modules accepted: Level of Service documented in this encounter Plan of Treatment Not on file documented as of this encounter Results * XR Pelvis 1 or 2Vw (02/03/2025 12:30 PM CDT) Narrative [facility] [address] - 02/03/2025 12:30 PM CDT Please see progress note in Epic for results. Rex Gresham PA-C DIAGNOSTIC IMAGING ORDERABL ES Final Result Performing Organization Address [facility] Co de Phone Number [facility] [address] * XR Lumbar Spine 2 or 3Vw (02/03/2025 12:30 PM CDT) Narrative [facility] [address] - 02/03/2025 12:30 PM CDT Please see progress note in Epic for results. Rex Gresham PA-C DIAGNOSTIC IMAGING ORDERABL ES Final Result Performing Organization Address [facility] Co de Phone Number [facility] [address] * XR Knee Right 3Vw (02/03/2025 11:54 AM CDT) Narrative [facility] [address] - 02/03/2025 11:54 AM CDT Please see progress note in Epic for results. 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, pelvic region and thigh Presence of right artificial knee joint Knee joint replacement by other means Presence of right artificial knee joint Knee joint replacement by other means Presence of right artificial knee joint Knee joint replacement by other means documented in this encounter Additional Health Concerns Infection Onset Date Last Indicated Resolved Time 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
--- OUTSIDE RECORDS SUMMARY | 2025-02-15 17:45 | XMS_ITS | Clinical Summary ---
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
--- OUTSIDE RECORDS SUMMARY | 2025-02-15 17:45 | XMS_ITS | Clinical Summary ---
Author Organization [facility] Address [address] [place] [address] Care Team Providers Care Jail Keeper Name Role Phone Darnell Raymond MD Unavailable [phone] Stefani Mulligan MD Unavailable [phone] Dano Han MD Primary Care Provider Amalia Gregory MD Unavailable [phone] Source Comments [facility],non-owned Affiliates and Associated Physician Practices is amultiple site organization consisting of ambulatory clinics and hospital sitesin [place], [place], [place] and [place]. This disclosure is being madepursuant to the Care Everywhere program and may not contain all information available regarding this patient. 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 Encounters Date Type Department Care Team Description 02/03/2025 12:30 PM CDT Ancillary Procedure [facility] Orthopedics - Radiology [address] [place] [phone] Rex Gresham, SUKUMAR Presence of right artificial knee joint 02/03/2025 12:25 PM CDT Ancillary Procedure [facility] Orthoped[facility] - Radiology [address] [place] [phone] Rex Gresham, SUKUMAR Presence of right artificial knee joint 02/03/2025 11:50 AM CDT Office Visit [facility] [address] [place] [address], [address] [place] [address] Rex Gresham PA-C Presence of right artificial knee joint (Primary Dx); Lumbar spondylosis; Primary osteoarthritis of right hip 02/03/2025 11:40 AM CDT Ancillary Procedure [facility] Orthoped[facility] - Radiology [address] [place] [phone] Rex Gresham PA-C Presence of right artificial knee joint 02/03/2025 Travel from Last 3 Months Immunizations Immunization Administration Dates Next Due INFLUENZA [...] on file Legal Sex 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 Gender Identity Female 01/16/2021 10:27 AM CDT Sexual Orientation Not on file Last Filed Vital Signs Vital Sign Reading Time Taken Comments Blood Pressure 159/91 10/08/2023 10:15 AM ELECTRICAL ASSEMBLIES SUPERVISOR Pulse 76 10/08/2023 10:15 AM ELECTRICAL ASSEMBLIES SUPERVISOR Temperature 36.2 C (97.1 F) 07/12/2021 8:47 AM ELECTRICAL ASSEMBLIES SUPERVISOR Respiratory Rate 18 03/26/2021 10:24 AM CDT Oxygen Saturation 98% 10/26/2020 11:25 AM CDT Inhaled Oxygen Concentration - - Weight 70.3 kg (155 lb) 10/08/2023 10:15 AM ELECTRICAL ASSEMBLIES SUPERVISOR Height 157.5 cm (5' 2) 10/08/2023 10:15 AM ELECTRICAL ASSEMBLIES SUPERVISOR Body Mass Index 28.35 10/08/2023 10:15 AM ELECTRICAL ASSEMBLIES SUPERVISOR Plan of Treatment Health Maintenance Due Date Last Done Comments BONE DENSITY TESTING 1940 COVID-19 VACCINE (#1) 1944 DTAP/TDAP/TD VACCINES (1 - Tdap) 1958 PNEUMOCOCCAL VACCINE 50+ (1 of 2 - PCV) 1958 Respiratory Syncytial Virus (RSV) Vaccine Pt: or over 60 yrs (1 - 1-dose 75+ series) 2014 ZOSTER VACCINE (2 of 2) 09/11/2020 07/17/2020 DEPRESSION SCREENING 08/11/2024 MEDICARE AWV CALENDAR YEAR 2024 INFLUENZA VACCINE (#1) 2025 0, 05/13/2019 HEPATITIS B VACCINE Aged Out No [...] this topic Medical Devices Implanted Type Area Value Analyst Device Identifier Shelf Expiration Date Model / Serial / Lot Cmnt Bone Cblt 40gm Hvisc Strl Implanted:Qty: 1 on 12/15/2017 by Darnell Raymond MD at [facility] Right: Knee [employer] 06/10/2019 [id number] / / [id number] Cmpnt Fem Kn Rt Cr Cmnt Prm Vngrd Intlk Implanted:Qty: 1 on 12/15/2017 by Darnell Raymond MD at [facility] Right: Knee [employer] 09/14/2027 [id number] / / [id number] Tray Tib 71mm Kn Cocr I Beam Implanted:Qty: 1 on 12/15/2017 by Darnell Raymond MD at [facility] Right: Knee [employer] 08/07/2027 [id number] / / [id number] Cmpnt Ptlr 28mm 1 Pg Wire Ascnt Arcm Kn Implanted:Qty: 1 on 12/15/2017 by Darnell Raymond MD at [facility] Right: Knee [employer] 09/01/2022 [id number] / / [id number] Brng [id number] Vngrd Arcm Kn Ant Stab Implanted:Qty: 1 on 12/15/2017 by Darnell Raymond MD at [facility] Right: Knee [employer] 09/04/2022 [id number] / / [id number] Procedures Procedure Name Priority Date/Time Associated Diagnosis Comments XR PELVIS 1 OR 2VW Routine 02/03/2025 12 :30 PM CDT Presence of right artificial knee joint XR LUMBAR SPINE 2 OR 3VW Routine 02/03/2025 12:30 PM CDT Presence of right artificial knee joint XR KNEE RIGHT 3VW Routine 02/03/2025 11: 54 AM CDT Presence of right artificial knee joint from Last 3 Months Results * XR Pelvis 1 or 2Vw (02/03/2025 12:30 PM CDT) Narrative [facility] [address] - 02/03/2025 12:30 PM CDT Please see progress note in Epic for results. Rex VALVERDE-C DIAGNOSTIC IMAGING ORDERABL ES Final Result Performing Organization Address [facility] de Phone Number [facility] [address] * XR Lumbar Spine 2 or 3Vw (02/03/2025 12:30 PM CDT) Narrative [facility] [address] - 02/03/2025 12:30 PM CDT Please see progress note in Epic for results. Rex VALVERDE-C DIAGNOSTIC IMAGING ORDERABL ES Final Result Performing Organization Address [facility] Co de Phone Number [facility] [address] * XR Knee Right 3Vw (02/03/2025 11:54 AM CDT) Narrative [facility] [address] - 02/03/2025 11:54 AM CDT Please see progress note in Epic for results. 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 03/15/2020 Insurance MEDICARE [facility] MANAGED MEDICARE ADV MEDICARE Advance Directives * Full Code (Latest Code Status on File) Date Activated Date Inactivated Comments 03/15/2020 5:30 AM 03/18/2020 5:47 PM * Full Code Date Activated Date Inactivated Comments 06/11/2019 10:10 PM 06/13/2019 3:14 PM * Full Code Date Activated Date Inactivated Comments 12/15/2017 2:10 PM 12/18/2017 2:18 PM Care Teams Jail Keeper Relationship Specialty Start Date End Date Dano Han MD [address] [place] [address] PCP - General 04/03/20 [place] [address] [facility] [address] [place] [address] Orthopedic Surgery 10/30/17 [place] [address] [facility] [address] [place], [place] [id number] [place] Cardiovascular Disease 03/28/20 [place] [address] [facility] [address] [place] [address] Rheumatology 10/26/20
--- OUTSIDE RECORDS SUMMARY | 2025-02-15 17:45 | XMS_ITS | Encounter Summary ---
[facility] Organization [facility] Address 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
--- OUTSIDE RECORDS SUMMARY | 2025-02-15 17:45 | XMS_ITS | Encounter Summary ---
Author Organization [facility] Address 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
--- OUTSIDE RECORDS SUMMARY | 2025-02-15 17:45 | XMS_ITS | Encounter Summary ---
Author Organization [facility] Address 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 Gender Identity Not on file Sexual Orientation [...] and non- Americans is available on the [facility] Intranet at: [email or web address] Select: Lab Policies and Procedures Select: Reference Ranges - GFR 03/27/2007 5:55 AM CDT [employer] CHEMISTRY ORDERABLES Edited Performing Organization Address City/[facility] de Phone Number INTERFACE SYSTEM Refer to clinic/hospital department * HEMOGLOBIN AND HEMATOCRIT (03/27/2007 5:55 AM CDT) HEMOGLOBIN 13.7 11.8 - 14.8 g/dL INTERFACE SYSTEM HEMATOCRIT 40.3 35.5 - 44.0 % INTERFACE SYSTEM 03/27/2007 5:55 AM CDT [facility] HEMATOLOGY ORDERABLES Edited Performing Organization Address City/State/[facility] Co de Phone Number INTERFACE SYSTEM Refer to clinic/hospital department documented in this encounter Visit Diagnoses Diagnosis Specified congenital anomalies of breast- Primary documented in this encounter Care Teams Navigation Officer Relationship Specialty Start Date End Date Cory Ayers DO PCP - General 07/27/15 documented as of this encounter
--- OUTSIDE RECORDS SUMMARY | 2025-02-15 17:45 | XMS_ITS | Encounter Summary ---
Author Organization [facility] Address [address] Attn: Epic Prelude ADT [place] [address] Care Team Providers Care Classification Officer Name Role Phone Cory Ayers DO Primary Care Provider Encounter Details Date Type Department Care Team (Late st Contact Info) Description 11/26/1989 Outpatient Historical Hiram Trivedi MD [facility] [place] [address] Social History Tobacco Use Types Packs/Day Years Used Date Smoking Tobacco: Never Assessed Comments Unknown Sex and Gender Information Value Date Recorded Sex Assigned at Not on file 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
[2025-02-15 17:58] VITALS: BP 135/94; PULSE 116; RESP 18; TEMP 36.4; O2SAT 96
--- OUTSIDE RECORDS SUMMARY | 2025-02-15 18:02 | XMS_ITS | Continuity of Care Document ---
Author Organization [facility] Address [address] [place] [address] Phone Care Team Providers Care Departmental Buyer Name Role Phone Carranza OD, Indra Unavailable Unavailable Procedures Procedure Date Eye Exam Established Pt No Script Advance Directives Directive Yes / No Effective Date File Name No Information Encounters Encounter Description Practice Location Reason(s) For Visit Diagnoses Date Provider Providers Copied on Encounter [facility], [address], [place], [place], [id number], [place] tel:[phone] [facility] No Information 9-200 9 Carranza OD Indra. [address] , [address], [place], [address], [place]. tel:[phone] Family History Family Member Type Diagnosis Age At Onset No Information Payers Payer name Insurance type Covered alliance party ID Authoriza tion(s) [place] [id number] [place] [id number] Social History Type Description Quantity Date Captured [...]
--- OUTSIDE RECORDS SUMMARY | 2025-02-15 18:02 | XMS_ITS | Continuity of Care Document ---
Author Organization [facility] Address [address] [place] [address] [address] [place] [address] Phone Care Team Providers Care Automatic Steel Tie Adjuster Name Role Phone Richi PT,MPT,ATC, Daniel Unavailable Unavai lable Procedures Procedure Date Therapeutic Activities Neuromuscular Re-Ed Therapeutic Activities Neuromuscular Re-Ed Therapeutic Exercise Therapeutic Activities Neuromuscular Re-Ed Therapeutic Exercise Therapeutic Activities Neuromuscular Re-Ed Therapeutic Activities Neuromuscular Re-Ed Therapeutic Exercise Therapeutic Activities Neuromuscular Re-Ed Therapeutic Exercise Therapeutic Activities Neuromuscular Re-Ed Therapeutic Exercise Progress Note Therapeutic Activities Neuromuscular Re-Ed Therapeutic Exercise Therapeutic Activities Neuromuscular Re-Ed Therapeutic Exercise Therapeutic Activities Neuromuscular Re-Ed Therapeutic Exercise Therapeutic Activities Neuromuscular Re-Ed Therapeutic Exercise Therapeutic Activities Neuromuscular Re-Ed Therapeutic Exercise Therapeutic Activities Neuromuscular Re-Ed Therapeutic Exercise Therapeutic Activities Neuromuscular Re-Ed Therapeutic Exercise Therapeutic Activities Neuromuscular Re-Ed Therapeutic Exercise Therapeutic Activities Neuromuscular Re-Ed Therapeutic Exercise PT Evaluation High Complexity Therapeutic Activities Neuromuscular Re-Ed THERAPEUTIC EXERCISES MANUAL THERAPY PT EVALUATION THERAPEUTIC [...] Diagnoses Date Provider Providers Copied on Encounter [facility], [place], [place], [id number], tel:[phone] [place] No Information 1 [facility]. [facility], [place], [place], [id number], tel:[phone] [place] No Information 1 Richi Lam[place], . [facility], [place], [place], [id number], tel:[phone] [place] No Information 1 Richi [place], . [facility], [address], [place], [place], [id number], tel:[phone] [place] No Information 0 1 Richi Lamar , [place], [place]. [facility], [place], [place], [id number], [place] tel:[phone] [place] No Information 1 Richi Lamar , [place], [place]. [facility], [place], [place], [id number], [place] tel:[phone] [place] No Information 1 Richi Lamar , [place], [place]. [facility], [place], [place], [id number], [place] tel:[phone] [place] No Information 1 Raymond Green. . [facility], [place], [place], [address], [place] tel:[phone] [place] No Information 1 Richi Lamar , [place], [place]. [facility], [place], [place], [address], [place] tel:[phone] [place] No Information 1 Richi Lamar [place], [place]. [facility], [place], [place], [id number], [place] tel:[phone] [place] No Information 1 Richi Lamar , [place], [place]. [facility], [place], [place], [id number], [place] tel:[phone] [place] No Information 1 Richi Lamar [place], [place]. [facility], [place], [place], [address], [place] tel:[phone] [place] No Information 1 Richi Lamar [place]. [facility], [place], [place], [id number], [place] tel:[phone] [place] No Information 1 Stoddard Daniel. , [place], [place]. [facility], [address], [place], [place], [id number], tel:[phone] [place] No Information 1 Stoddard Daniel. , [place], [place]. [facility], [place], [place], [address], [place] tel:[phone] [place] No Information 1 Stoddard Daniel. , [place], [place]. [facility], [address], [place], [place], [address], [place] tel:[phone] [place] No Information 1 Stoddard Daniel. , [place], [place]. [facility], [address], [place], [place], [id number], [place] tel:[phone] [place] No Information 1 Stoddard Daniel. , [place], [place]. [facility], [address], [place], [place], [address], [place] tel:[phone] [place] No Information 3 Chetan Lynda. [address] [place] [address], [address], [place], [facility], . tel: [phone] Referring Provider: Sean Graff, [address] [place] [address] [address], [place], [facility]. tel:[phone] [facility], [place], [place], [address], [place] tel:[phone] [place] Pain in joint involving pelvic region and thigh 3 Chetan Lynda. [address] [facility] [facility], [address], [place], [facility], . tel: [phone] Referring Provider: Sean Graff, [address] [place] [address] [address], [place], [place], [facility]. tel:[phone] Family History Family Member Type Diagnosis Age At Onset No Information Payers Payer name Insurance type Covered libertarian ID Authoriza tion(s) Medicare [place] MB [id number] [facility] [id number] Social History Type Description Quantity Date Captured [...]
--- NOTE | 2025-02-15 18:10 | ECG_ITS ---
Test Date: 2025-02-15 18:12:46 Measurements Intervals [place] Rate: 113 P: 40 MT: 170 QRS: 29 QRSD: 77 T: 50 QT: 323 QTc: 444 Interpretive Statements SINUS TACHYCARDIA NONSPECIFIC ST SEGMENT ABNORMALITY ABNORMAL ECG Compared to ECG 10/10/2024 15:00:59 NO SIGNIFICANT CHANGE Electronically Signed On 02-16-2025 07:42:44 CDT by Bernabe Mcclendno M.D.
--- NOTE | 2025-02-15 18:16 | ED.GENADULT ---
HPI - General Adult General Chief complaint: Abdominal Pain Stated complaint: abd pain, foul-smelling urine, weak, SOB Time Seen by Provider: 02/15/25 17:52 History of Present Illness HPI narrative: 84-year-old female presented to the emergency department for evaluation for nausea vomiting decreased p.o. intake and abdominal pain. Patient denies any falls or injuries. Patient denies any chest pain. Family states that patient did sleep for the majority of the day and have some shortness of breath this morning. Patient does have history of high cholesterol, COPD, AFib Related Data Home Medications ?Medication ?Instructions ?Recorded ?Confirmed ?Last Taken ?Type diphenhydramine 25 1 tablet PO HS 10/24/21 11/16/24 10/26/23 History mg-acetaminophen 500 mg tablet (Tylenol PM Extra Strength) prednisone 2.5 mg tablet 5 mg PO BID 03/05/23 11/16/24 10/27/23 08:00 History tramadol 50 mg tablet 100 mg PO TID PRN Pain 07/21/23 11/16/24 10/27/23 08:00 History acetaminophen 500 mg tablet 500 mg PO TID PRN Pain 10/01/23 11/16/24 10/26/23 History (Tylenol Extra Strength) crxunpnqalng-phqpkoni-cwfuzz tablet 1 tablet PO DAILY 10/20/23 11/16/24 10/26/23 History omeprazole 40 mg capsule,delayed 40 mg PO DAILY 10/14/24 11/16/24 Unknown History release hydroxychloroquine 200 mg tablet 200 mg PO DAILY 11/16/24 11/16/24 Unknown History Allergies Allergy/AdvReac Type Severity Reaction Status Date / Time No Known Allergies Allergy Verified 02/15/25 18:01 Review of Systems Review of Systems: All systems reviewed & are unremarkable except as noted in HPI and below PMFSH Past Medical History Medical History GERD (gastroesophageal reflux disease) History of esophageal stricture Esophageal dysphagia History of TIA (transient ischemic attack) Dyslipidemia Oropharyngeal dysphagia History of CVA (cerebrovascular accident) Osteopenia Paralysis of right vocal cord Chronic low back pain Vitamin D deficiency 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 Chronic venous insufficiency of lower extremity Hemorrhoid Anticoagulant long-term use Hypokalemia Atrial fibrillation Obstructive sleep apnea (~10/2020) Polysomnogram suggesting CPAP pressure of 13 with 3 L bleed in O2 Pulmonary embolism History of cerebral hemorrhage History of stroke History of skin cancer Hyperlipidemia Esophageal stricture (~10/2021) History of shingles History of blood clots 2015 - RUE COPD (chronic obstructive pulmonary disease) With CT demonstrating emphysema with mild bronchiectasis GERD without esophagitis Essential (primary) hypertension Rheumatoid arthritis Follows with Rheumatology Surgical History Surgical History History of hemorrhoidectomy History of esophageal dilatation 10/2021, 04/2021 History of hemorrhoidectomy 05/08/2021 History of esophagogastroduodenoscopy (EGD) (~05/2020) History of umbilical hernia repair (10/2020) H/O angioplasty (~2018) H/O brain surgery (~2014) 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 History of knee replacement Right H/O shoulder surgery (~1964) H/O Spinal surgery (~1968) spinal tumor removed H/O: hysterectomy (~1974) History of appendectomy (~194) H/O abdominoplasty (~2017) Family History Family History Father Family history of Alzheimer's disease Hypertension Hyperlipidemia Mother Hypertension Other Diabetes mellitus Nervous disorder Hypertension Heart disease Other Cerebrovascular accident Family history of arthritis Family history of thyroid disease Social History Social History Social History: She has been 3 times. Her 1st after 40 years of marriage. Her 2nd after 5 years . She has been to her current has been for 12 years. She has 3 children who are healthy. She is a lifelong nonsmoker and does not drink alcohol. Smoking status: Never smoker Second hand tobacco smoke exposure: No Alcohol intake: current Substance use: current Substance use type: does not use Lack of Transportation: No Lack of Food: Never True Current Housing: I Have Housing Concerned About Future Housing: No Difficulty Paying Gas/Electric Bills: No Difficulty Paying for Meds: No Currently Unemployed: No Education: Bachelor's Degree Difficulty w/ Childcare or Family Care: No Living arrangements: with family Occupation/Education: retired Gender identity (if verbalized by the patient): Female Sexual Orientation (if Verbalized by the Patient): Straight or Heterosexual Spiritual care concerns: No Agree to blood products: Yes Exam Narrative: APPEARANCE: Ill-appearing HEAD: normocephalic, atraumatic. EYES: PERRLA/EOMI, conjunctivae clear. NOSE: Normal no drainage EARS:TMS clear with good light reflex. THROAT: Pharynx clear, no exudate. NECK: Supple. No adenopathy, no masses. RESPIRATORY: Airway patent, respirations nonlabored. Clear to auscultation bilaterally, no rales, rhonchi, wheezing. CARDIOVASCULAR: Regular rate and rhythm without murmurs rubs or gallops. ABDOMINAL: Lower abdominal tenderness to palpation MUSCULOSKELETAL: Moves all extremities. Strength/ROM intact, No edema, No calf tenderness. NEURO: Alert. Cranial nerves II through XII intact. Good gait. Good coordination SKIN: Warm, dry. Normal Color Course Vital Signs Vital signs: Vital Signs Temperature 97.6 F 02/15/25 17:58 Pulse Rate 116 H 02/15/25 17:58 Respiratory Rate 18 02/15/25 17:58 Blood Pressure 135/94 H 02/15/25 17:58 Pulse Oximetry 96 02/15/25 17:58 Oxygen Delivery Room Air 02/15/25 17:58 Temperature 97.6 F 02/15/25 17:58 Pulse Rate 109 H 02/15/25 20:28 Respiratory Rate 20 02/15/25 20:28 Blood Pressure 140/97 H 02/15/25 20:28 Pulse Oximetry 96 02/15/25 20:28 Oxygen Delivery Room Air 02/15/25 17:58 Medical Decision Making [facility] Narrative Medical decision making narrative: 84-year-old female present to the emergency department for evaluation for lower abdominal pain, decreased p.o. intake. Patient is afebrile but does have a leukocytosis of 10.1 hemoglobin of 13.9. Patient does have a lactic acid of 2.7 and was treated with a L of lactated Ringer's. Patient does have elevation AST ALT and alk-phos, these are not new to today and patient is being worked up by her primary care physician for this. Patient's urine was nitrate positive leukocyte esterase positive 50-100 red blood cells and greater 100 white blood cells with +4 bacteria, urine culture was ordered and patient was started on IV Rocephin. CT scan of the abdomen and pelvis did show enlargement of the common bowel duct which is not new but did also show evidence cystitis. Case was discussed with hospitalist patient was accepted for admission. Differential Diagnosis Differential Diagnosis: Colitis, diverticulitis, pneumonia, pyelonephritis, urinary tract infection, dehydration, intractable nausea and vomiting Vital Signs Vital Signs: Vital Signs Temperature 97.6 F 02/15/25 17:58 Pulse Rate 116 H 02/15/25 17:58 Respiratory Rate 18 02/15/25 17:58 Blood Pressure 135/94 H 02/15/25 17:58 Pulse Oximetry 96 02/15/25 17:58 Oxygen Delivery Room Air 02/15/25 17:58 Temperature 97.6 F 02/15/25 17:58 Pulse Rate 109 H 02/15/25 20:28 Respiratory Rate 20 02/15/25 20:28 Blood Pressure 140/97 H 02/15/25 20:28 Pulse Oximetry 96 02/15/25 20:28 Oxygen Delivery Room Air 02/15/25 17:58 Lab Data Lab results reviewed: Yes I reviewed the patient's lab results. 02/15/25 18:18 02/15/25 18:18 Labs: Lab Results 02/15/25 02/15/25 02/15/25 Range/Units 18:18 18:22 18:36 WBC 10.1 H (4.5-10.0) K/mm3 RBC 4.59 (4.2-5.4) M/mm3 Hgb 13.9 (12.0-15.0) g/dL Hct 43.7 (37.0-47.0) % MCV 95.2 (80-100) fl MCH 30.3 (26-34) pg MCHC 31.8 L (32-36) g/dl RDW 15.3 H (11.5-14.5) % Plt Count 183 D (150-375) k/mm3 MPV 10.3 (7.4-10.4) fl Immature Gran % (Auto) 0.2 (0-0.5) % Neut % (Auto) 70.3 (45.5-73.1) % Lymph % (Auto) 17.6 L (18.3-44.2) % Holmes % (Auto) 10.8 H (2.6-8.5) % Eos % (Auto) 0.3 (0-4.4) % Baso % (Auto) 0.8 (0.2-1.2) % Lymph # (Auto) 1.77 (0.9-3.2) K/mm3 Holmes # (Auto) 1.1 H (0.1-0.6) K/mm3 Eos # (Auto) 0.0 (0-0.3) K/mm3 Baso # (Auto) 0.1 (0.0-0.1) K/mm3 Abs Immat Gran (auto) 0.02 (0.00-0.031) K/mm3 Absolute Neuts (auto) 7.1 H (1.3-6.7) K/mm3 Absolute Nucleated RBC 0.000 (0.0-0.012) K/mm3 Nucleated RBC % 0.0 (0.0-0.2) % PT 13.5 (11.1-14.7) Seconds INR 1.0 APTT 24.1 (22.3-36.8) Seconds Sodium 138 (137-145) mmol/L Potassium 3.9 (3.4-5.0) mmol/L Chloride 106 (98-107) mmol/L Carbon Dioxide 23 (22-30) mmol/L Anion Gap 9 (4-12) mmol/L BUN 18 H (7-17) mg/dL Creatinine 0.76 (0.7-1.0) mg/dL Estim Creat Clear Calc 41 ml/min Estimated GFR > 60 (59 - ) Glucose 124 H (65-110) mg/dL Lactic Acid 2.7 H (0.7-2.0) mmol/L Calcium 9.3 (8.4-10.2) mg/dL Total Bilirubin 1.1 (0.2-1.3) mg/dL AST 52 H (14-36) U/L ALT 37 H (6-35) U/L Alkaline Phosphatase 182 H (38-126) U/L Total Protein 5.9 L (6.3-8.2) g/dL Albumin 3.3 L (3.5-5.1) g/dL Urine Color Dark yellow (Yellow) Urine Appearance Cloudy H (Clear) Urine pH 5.5 (5.0-9.0) Ur Specific [place] 1.018 (1.001-1.035) Urine Protein 1+ H (Negative) mg/dL Urine Glucose (UA) Negative (Negative) mg/dL Urine Ketones 1+ H (Negative) mg/dL Ur Blood (Man) Negative (Negative) Urine Nitrate Positive H (Negative) Urine Bilirubin Negative (Negative) Urine Urobilinogen 1.0 (<2.0) mg/dL Add Ur Microanalysis Reviewed Leukocyte Esterase Rfl 3+ H (Negative) KHADIJAH/UL Urine RBC 51-100 H (0-2) /hpf Urine WBC >100 H (0-3) /hpf Ur Squamous Epith Cells None seen (Few) /hpf Urine Bacteria 4+ H /hpf Urine Casts 11-20 Hyaline Casts Present (None) /lpf Urine Yeast (Budding) Present H (None) /hpf Influenza A (RT-PCR) Negative (Negative) Influenza B (RT-PCR) Negative (Negative) RSV (RT-PCR) Negative (Negative) SARS-CoV-2 RNA (RT-PCR) Negative (Negative) Imaging Data Radiologist's impression: Impressions Chest X-Ray 02/15/25 18:49 IMPRESSION: No change from previous examination. No acute cardiopulmonary pathology Abdomen/Pelvis CT 02/15/25 19:25 IMPRESSION: Edematous mural thickening within the rectum, an interval change from prior. Significant mural thickening within the bladder with surrounding inflammatory change for which cystitis is suspected. Redemonstration of common bile duct dilatation to 11 mm, increased from 9 mm on the previous study. Heterogeneous enhancement of the liver, unchanged from prior. Discharge Plan Discharge Clinical Impression: Decreased oral intake, Nausea & vomiting, Urinary tract infection Patient Disposition: Still a Patient Condition: Stable
[2025-02-15 18:28] LABS: Hematocrit 43.7 % (37.0-47.0); Hemoglobin 13.9 g/dL (12.0-15.0); Immature Granulocyte Percent A 0.2 % (0-0.5); Lymphocytes Absolute Auto 1.77 K/mm3 (0.9-3.2); Mean Corpuscular HGB Conc 31.8 g/dl (32-36); Mean Corpuscular Hemoglobin 30.3 pg (26-34); Mean Corpuscular Volume 95.2 fl (80-100); Nucleated Red Blood Cells Absolute Auto 0.000 K/mm3 (0.0-0.012); Nucleated Red Blood Cells Perc 0.0 % (0.0-0.2); Platelet Count Result 183 k/mm3 (150-375); Red Blood Count 4.59 M/mm3 (4.2-5.4); White Blood Count 10.1 K/mm3 (4.5-10.0)
[2025-02-15] MEDS: LACTATED RINGERS 1,000 ML 999 ML IV CONT ×2 (18:37→20:40)
[2025-02-15 18:40] LABS: Alanine Aminotransferase 37 U/L (6-35); Albumin Level 3.3 g/dL (3.5-5.1); Alkaline Phosphatase 182 U/L (38-126); Anion Gap 9 mmol/L (4-12); Aspartate Amino Transferase 52 U/L (14-36); Bilirubin,Total 1.1 mg/dL (0.2-1.3); Blood Urea Nitrogen 18 mg/dL (7-17); Calcium 9.3 mg/dL (8.4-10.2); Carbon Dioxide 23 mmol/L (22-30); Chloride 106 mmol/L (98-107); Estimated CRCL calculation 41 ml/min; Estimated Glomerular Filt Rate > 60; Glucose 124 mg/dL (65-110); Potassium 3.9 mmol/L (3.4-5.0); Sodium 138 mmol/L (137-145); Total Protein 5.9 g/dL (6.3-8.2)
[2025-02-15 18:48] VITALS: BP 118/94; PULSE 110; RESP 32; O2SAT 97
[2025-02-15 18:53] LABS: INR 1.0; Prothrombin Time 13.5 Seconds (11.1-14.7)
[2025-02-15 18:54] LABS: Partial Thromboplastin Time 24.1 Seconds (22.3-36.8)
[2025-02-15 19:04] LABS: Add Urine Microscopic? YES; Appearance Urine Cloudy (Clear); Budding Yeast Urine Present /hpf; Glucose Urine UA Negative (Negative); Leukocyte Esterase Ur 3+ LEU/UL (Negative); Need Manual Microscopic Reviewed; Nitrate Urine Positive (Negative); Specific Grav Ur 1.018 (1.001-1.035)
[2025-02-15 19:05] LABS: Influenza A QL RT-PCR Negative (Negative); Influenza B QL RT-PCR Negative (Negative); RSV RNA, RT-PCR Negative (Negative); SARS-CoV-2 RNA PCR Negative (Negative)
[2025-02-15] MEDS: cefTRIAXone 1 GM in SODIUM CHLORIDE 0.9% IV 50 ML 100 ML IVPB (19:39)
[2025-02-15 20:28] VITALS: BP 140/97; PULSE 109; RESP 20; O2SAT 96
[2025-02-15] MEDS: LACTATED RINGERS 1,000 ML 100 ML IV CONT (21:37)
--- OUTSIDE RECORDS SUMMARY | 2025-02-15 21:43 | XMS_ITS | Encounter Summary ---
Author Organization [facility] Address 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
--- OUTSIDE RECORDS SUMMARY | 2025-02-15 21:43 | XMS_ITS | Encounter Summary ---
Author Organization [facility] Address 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
--- OUTSIDE RECORDS SUMMARY | 2025-02-15 21:43 | XMS_ITS | Encounter Summary ---
Author Organization [facility] Address [address] Attn: Epic Prelude ADT [place] [address] Care Team Providers Care Hydraulic Specialist Name Role Phone Cory Ayers DO Primary Care Provider Encounter Details Date Type Department Care Team (Late st Contact Info) Description 01/08/1994 Outpatient Historical Hiram Trivedi MD [facility] [place] [address] Social History Tobacco Use Types Packs/Day Years Used Date Smoking Tobacco: Never Assessed Comments Unknown Sex and Gender Information Value Date Recorded Sex Assigned at Not on file Legal Sex Female 4:21 AM CASE LINER Gender Identity Not on file Sexual Orientation Not on file documented as of this encounter Plan of Treatment Not on file documented as of this encounter Visit Diagnoses Not on filedocumented in this encounter Care Teams Hydraulic Specialist Relationship Specialty Start Date End Date Cory Ayers DO PCP - General 07/27/15 documented as of this encounter
--- OUTSIDE RECORDS SUMMARY | 2025-02-15 21:43 | XMS_ITS | Encounter Summary ---
Author Organization [facility] Address [address] [place] [address] Care Team Providers Care Circular Head Saw Operator Name Role Phone Cory Ayers DO Primary Care Provider Encounter Details Date Type Department Care Team (Late st Contact Info) Description 09/17/2002 Outpatient Historical HIS LAB, [address] Antolin Modi MD [address] [place] [address] [address] [address] URIN TRACT INFECTION NOS (Primary Dx) Social History Tobacco Use Types Packs/Day Years Used Date Smoking Tobacco: Never Assessed Comments Unknown Sex and Gender Information Value Date Recorded Sex Assigned at Not on file Legal Sex Female 4:21 AM 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
--- OUTSIDE RECORDS SUMMARY | 2025-02-15 21:43 | XMS_ITS | Encounter Summary ---
Author Organization [facility] Address [address] [place] [address] Care Team Providers Care Receptionist Airline Lounge Name Role Phone Darnell Raymond MD Unavailable Stefani Mulligan MD Unavailable [phone] Dano Han MD Primary Care Provider Amalia Gregory MD Unavailable [phone] Encounter Details Date Type Department Care Team (Late st Contact Info) Description 01/02/2023 Lab Requisition [facility] - DermPath Lab [address] [facility] [place] [id number] Parth Crain MD [address] [place] [address] Social History Tobacco Use Types Packs/Day Years Used Date Smoking Tobacco: Never Smokeless Tobacco: Never Alcohol Use Standard Drinks/Week Comments No 0 (1 standard drink = 0.6 oz pur e alcohol) Comments Unknown Sex and Gender Information Value Date Recorded Sex Assigned at Not on file Legal Sex Female 6:13 PM 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 Jar 0. 3 5:48 [...] characteristic determined by the Dermatopathology Laboratory at [facility], directed by Dr. Maryam Mendoza. These tests need not be, and therefore are not, approved by the [place] Food and Drug Administration. The tests are used for clinical purposes. Billing Codes Specimen Charges Stain Charges 74216 1 3 5:48 PM CDT DERMATOPATHOLOGY LABORATORY Embedded Images 3 5:48 PM CDT DERMATOPATHOLOGY LABORATORY Pathology/Cytolog y TISSUE SPECIMEN FROM SKIN / Unknown 01/01/2023 01/02/2023 8:56 AM CDT Parth Crain MD LAB - PATHOLOGY/CYTOLOGY ORDERAB LES Final Result DERMATOPATHOLOGY LABORATORY [facility] Department of Dermatology [facility] Medicine [address] [place] [address], [address] [phone] documented in this encounter Visit Diagnoses Not on filedocumented in this encounter Additional Health Concerns Infection Onset Date Last Indicated Resolved Time 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 03/15/2020 documented as of this encounter Care Teams Receptionist Airline Lounge Relationship Specialty Start Date End Date Dano Han MD [address] [place] [address] PCP - General 04/03/20 [place] [address] [address] [address] Orthopedic Surgery 10/30/17 [place] [address] [facility] [address] [place] [address] Vineyard Tender Cardiovascular Disease 03/28/20 [place] [address] [facility] [address] [place] [address] Rheumatology 10/26/20 documented as of this encounter
--- OUTSIDE RECORDS SUMMARY | 2025-02-15 21:43 | XMS_ITS | Encounter Summary ---
Author Organization [facility] Address [address] [facility] [place] [address] Care Team Providers Care Mud Temperer Name Role Phone Darnell Raymond MD Unavailable [phone] Stefani Mulligan MD Unavailable [phone] Dano Han MD Primary Care Provider Amalia Gregory MD Unavailable [phone] Encounter Details Date Type Department Care Team (Late st Contact Info) Description 12/06/2022 Lab Requisition [facility] Care DermPath Lab [address] [facility] [place] [address] Prath Crain MD [facility] [place] [address] Social History Tobacco Use Types Packs/Day Years Used Date Smoking Tobacco: Never Smokeless Tobacco: Never Alcohol Use Standard Drinks/Week Comments No 0 (1 standard drink = 0.6 oz pur e alcohol) Comments Unknown Sex and Gender Information Value Date Recorded Sex Assigned at Not on file Legal Sex Female 6:13 PM 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 Jar 0. 3 12:30 PM CDT DERMATOPATHOLOGY [...] characteristic determined by the Dermatopathology Laboratory at [facility], directed by Dr. Maryam Mendoza. These tests need not be, and therefore are not, approved by the [place] Food and Drug Administration. The tests are used for clinical purposes. Billing Codes Specimen Charges Stain Charges 19331 1 3 12:30 PM CDT DERMATOPATHOLOGY LABORATORY Embedded Images 3 12:30 PM CDT DERMATOPATHOLOGY LABORATORY Pathology/Cytolo gy TISSUE SPECIMEN FROM SKIN / Unknown 12/05/2022 3:33 AM CDT 12/06/2022 6:35 AM CDT Parth Crain MD LAB - PATHOLOGY/CYTOLOGY ORDERAB LES Final Result DERMATOPATHOLOGY LABORATORY [facility] Department of Dermatology [address], [address] [phone] documented in this encounter Visit Diagnoses Not on filedocumented in this encounter Additional Health Concerns Infection Onset Date Last Indicated Resolved Time 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 03/15/2020 documented as of this encounter Care Teams Mud Temperer Relationship Specialty Start Date End Date Dano Han MD [address] [place] [phone] PCP - General 04/03/20 [place] [address] [address] Orthopedic Surgery 10/30/17 [place] [address] [facility] [address] [place] [address] Cdl Team Truck Driver Cardiovascular Disease 03/28/20 [place] [address] [facility] [address] [place] [address] Rheumatology 10/26/20 documented as of this encounter
--- OUTSIDE RECORDS SUMMARY | 2025-02-15 21:43 | XMS_ITS | Encounter Summary ---
Author Organization [facility] Address 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
--- OUTSIDE RECORDS SUMMARY | 2025-02-15 21:43 | XMS_ITS | Clinical Summary ---
Author Organization [facility] Address [address] [facility] [place] [address] Phone Care Team Providers Care Engineering Inspector Name Role Phone AgapitoCory molina Alvarez Primary [...] on file Legal Sex Female 4:21 AM COUNTER TENDER Gender Identity Not on file Sexual Orientation [...] series) 2014 INFLUENZA VACCINE (#1) 2025 [place] [address] MEDICARE PART A AND B [employer] PPO Care Teams Engineering Inspector Relationship Specialty Start Date End Date Cory Ayers DO PCP - General 07/27/15
--- OUTSIDE RECORDS SUMMARY | 2025-02-15 21:43 | XMS_ITS | Encounter Summary ---
Author Organization [facility] Address [address] [facility] Attn: [place] [address] Care Team Providers Care Supervisor [place] Name Role Phone Cory Ayers DO Primary Care Provider Encounter Details Date Type Department Care Team (Late st Contact Info) Description 10/06/1997 Outpatient Historical Conversion, History Hiram Trivedi MD [address] [place] [address] Social History Tobacco Use Types Packs/Day Years Used Date Smoking Tobacco: Never Assessed Comments Unknown Sex and Gender Information Value Date Recorded Sex Assigned at Not on file Legal Sex Female 4:21 AM 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
--- OUTSIDE RECORDS SUMMARY | 2025-02-15 21:43 | XMS_ITS | Encounter Summary ---
Author Organization [facility] Health Address [address] [place] [address] Care Team Providers Care Commuter Train Operator Name Role Phone Cory Ayers DO Primary Care Provider Darnell Raymond MD Unavailable Esthela Barksdale MD Primary Care Provider Un available Cory Ayers DO Primary Care Provider Cory Ayers DO Primary Care Provider Dano Han MD Primary Care Provider Stefani Mulligan MD Unavailable [phone] Cory Ayers DO Primary Care Provider [phone] Dano Han MD Primary Care Provider Amalia Gregory MD Unavailable [phone] Encounter Details Date Type Department Care Team (Late st Contact Info) Description 11/26/2017 [facility] Outpatient Visit [facility] [address] [place] [address] [place] [address] [address] Social History Tobacco Use Types Packs/Day Years Used Date Smoking Tobacco: Never Smokeless Tobacco: Never Alcohol Use Standard Drinks/Week Comments No 0 (1 standard drink = 0.6 oz pur e alcohol) Comments Unknown Sex and Gender Information Value Date Recorded Sex Assigned at Not on file Legal Sex Female 6:13 PM NAVAL ARCHITECT Gender Identity Female 01/16/2021 10:27 AM CDT [...] documented as of this encounter Care Teams Commuter Train Operator Relationship Specialty Start Date End Date Cory Ayers DO PCP - General Internal Medicine 10/30/17 06/10/19 Esthela Barksdale MD [address] [place] [address] PCP - General Family Medicine 07/07/19 01/16/20 Cory Ayers DO [address] [place] [address] PCP - General 01/17/20 03/19/20 Cory Ayers DO [address] [place] [address] PCP - General 03/23/20 03/27/20 Dano Han MD [address] [place] [address] PCP - General Family Medicine 03/28/20 03/30/20 Cory Ayers DO [address] [place] [place] [address] PCP - General 03/31/20 04/02/20 Dano Han MD [address] [place] [address] PCP - General 04/03/20 [place] [address] [place] [address] Orthopedic Surgery 10/30/17 [place] [address] [place] [address] Lead Burner Apprentice Cardiovascular Disease 03/28/20 [place] [address] [place] [address] Rheumatology 10/26/20 documented as of this encounter
--- OUTSIDE RECORDS SUMMARY | 2025-02-15 21:43 | XMS_ITS | Encounter Summary ---
Author Organization [facility] Address [address] [place] [address] Care Team Providers Care Shoulder Joiner Name Role Phone Cory Ayers DO Primary Care Provider Encounter Details Date Type Department Care Team (Late st Contact Info) Description 07/12/2002 Outpatient Historical [facility] Support Serv. (Adt Cardiology-[facility]) [address] 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
--- OUTSIDE RECORDS SUMMARY | 2025-02-15 21:43 | XMS_ITS | Encounter Summary ---
Author Organization [facility] Address [address] [place] [address] Care Team Providers Care Insulation Nozzleman Name Role Phone Cory Ayers DO Primary Care Provider Encounter Details Date Type Department Care Team (Late st Contact Info) Description 10/06/2002 Outpatient Historical HIS MRI DEPT [facility], [place] [address] [facility] [address] [place] [address] JOINT PAIN-L/LEG (Primary Dx) Social History Tobacco Use Types Packs/Day Years Used Date Smoking Tobacco: Never Assessed Comments Unknown Sex and Gender Information Value Date Recorded Sex Assigned at Not on file Legal Sex Female 4:21 AM TOXICOLOGIST Gender Identity Not on file Sexual Orientation Not on file documented as of this encounter Plan of Treatment Not on file documented as of this encounter Visit Diagnoses Diagnosis Pain in joint, lower leg- Primary documented in this encounter Care Teams Insulation Nozzleman Relationship Specialty Start Date End Date Cory Ayers DO PCP - General 07/27/15 documented as of this encounter
--- OUTSIDE RECORDS SUMMARY | 2025-02-15 21:43 | XMS_ITS | Encounter Summary ---
Author Organization [facility] Address [address] [facility] Attn: Epic Prelude ADT [place] [address] Care Team Providers Care Toaster Element Repairer Name Role Phone Cory Ayers DO Primary Care Provider Encounter Details Date Type Department Care Team (Late st Contact Info) Description 11/26/1989 Outpatient Historical Hiram Trivedi MD [facility] [place] [address] Social History Tobacco Use Types Packs/Day Years Used Date Smoking Tobacco: Never Assessed Comments Unknown Sex and Gender Information Value Date Recorded Sex Assigned at Not on file Legal Sex Female 4:21 AM DIAMOND CLEAVER Gender Identity Not on file Sexual Orientation Not on file documented as of this encounter Plan of Treatment Not on file documented as of this encounter Visit Diagnoses Not on filedocumented in this encounter Care Teams Toaster Element Repairer Relationship Specialty Start Date End Date Cory Ayers DO PCP - General 07/27/15 documented as of this encounter
--- OUTSIDE RECORDS SUMMARY | 2025-02-15 21:43 | XMS_ITS | Encounter Summary ---
Author Organization [facility] Address [address] [place] [address] Care Team Providers Care Aquatics Manager Name Role Phone Cory Ayers DO Primary Care Provider Encounter Details Date Type Department Care Team (Latest Contact Info) Description 05/09/1999 Outpatient Historical [facility] [place] [address] [facility] [place] [address] Localized adiposity (Primary Dx) Social History Tobacco Use Types Packs/Day Years Used Date Smoking Tobacco: Never Assessed Comments Unknown Sex and Gender Information Value Date Recorded Sex Assigned at Not on file Legal Sex Female 4:21 AM MANAGER CRISIS Gender Identity Not on file Sexual Orientation Not on file documented as of this encounter Plan of Treatment Not on file documented as of this encounter Visit Diagnoses Diagnosis Localized adiposity- Primary documented in this encounter Care Teams Aquatics Manager Relationship Specialty Start Date End Date Cory Ayers DO PCP - General 07/27/15 documented as of this encounter
--- OUTSIDE RECORDS SUMMARY | 2025-02-15 21:43 | XMS_ITS | Continuity of Care Document ---
Author Organization [facility] Address [address] [place] [address] [address] [place] [address] Phone Care Team Providers Care Box Maker Name Role Phone Richi PT,MPT,ATC, Daniel Unavailable [...] Provider Providers Copied on Encounter [facility], [place], [place], [id number], tel:[phone] [place] No Information 1 Richi SanchezMT. [facility]. [facility], [place], [place], [address], tel:[phone] [place] No Information 1 Richi Lamar [place], . [facility], [place], [place], [address], tel:[phone] [place] No Information 1 Richi Lamar [place], . [facility], [address], [place], [place], [address], tel:[phone] [place] No Information 0 1 Richi Lamar , [place], [place]. [facility], [place], [place], [address], [place] tel:[phone] [place] No Information 1 Richi [place] , [place]. [facility], [place], [place], [address], [place] tel:[phone] [place] No Information 1 Richi Lamar , [place]. [facility], [place], [place], [address], [place] tel:[phone] [place] No Information 1 Raymond Green. . [facility], [place], [place], [address], [place] tel:[phone] [place] No Information 1 Richi Lamar , [place], [place]. [facility], [place], [place], [address], [place] tel:[phone] [place] No Information 1 Richi [place]. [facility], [place], [place], [address], [place] tel:[phone] [place] No Information 1 Richi Lamar , [place]. [facility], [place], [place], [address], [place] tel:[phone] [place] No Information 1 Richi [place]. [facility], [place], [place], [address], [place] tel:[phone] [place] No Information 1 Richi [place]. [facility], [place], [place], [address], [place] tel:[phone] [place] No Information 1 Stoddard Daniel. , [place], [place]. [facility], [address], [place], [place], [address], tel:[phone] [place] No Information 1 Stoddard Daniel. , [place]. [facility], [place], [place], [address], [place] tel:[phone] [place] No Information 1 Stoddard Daniel. , [place]. [facility], [address], [place], [place], [address], [place] tel:[phone] [place] No Information 1 Stoddard Daniel. , [place]. [facility], [address], [place], [place], [address], [place] tel:[phone] [place] No Information 1 Stoddard Daniel. , [place], [place]. [facility], [address], [place], [place], [address], [place] tel:[phone] [place] No Information 3 Chetan Lynda. [address] [place] [address], [address], [place], [facility], . tel: [phone] Referring Provider: Sean Graff, [address] [place] [address] [address], [place], [facility]. tel:[phone] [facility], [place], [place], [address], [place] tel:[phone] [place]on Pain in joint involving pelvic region and thigh 3 Chetan Lynda. [address] [facility], [address], [place], [facility], . tel: [phone] Referring Provider: Sean Graff, [address] [place] [address] [address], [place], [place], [facility]. tel:[phone] Family History Family Member Type Diagnosis Age At Onset No Information Payers Payer name Insurance type Covered democrat ID Authoriza tion(s) Medicare [place] [id number] [facility] [id number] Social History Type Description Quantity Date Captured [...]
--- OUTSIDE RECORDS SUMMARY | 2025-02-15 21:43 | XMS_ITS | Encounter Summary ---
Author Organization [facility] Address [address] [place] [address] Care Team Providers Care Truck Dock Material Mover Name Role Phone Cory Ayersian Primary Care [...] on file Legal Sex Female 4:21 AM COUNSELING AIDE Gender Identity Not on file Sexual [...] and non- Americans is available on the [facility] [place] [facility] at: [email or web address] Select: Lab Policies and Procedures Select: Reference Ranges - GFR 03/27/2007 5:55 AM CDT [employer] CHEMISTRY ORDERABLES Edited Performing Organization Address City/[facility] de Phone Number INTERFACE SYSTEM Refer to clinic/hospital department * HEMOGLOBIN AND HEMATOCRIT (03/27/2007 5:55 AM CDT) HEMOGLOBIN 13.7 11.8 - 14.8 g/dL INTERFACE SYSTEM HEMATOCRIT 40.3 35.5 - 44.0 % INTERFACE SYSTEM 03/27/2007 5:55 AM CDT [employer] HEMATOLOGY ORDERABLES Edited Performing Organization Address City/State/[place] Co de Phone Number INTERFACE SYSTEM Refer to clinic/hospital department documented in this encounter Visit Diagnoses Diagnosis Specified congenital anomalies of breast- Primary documented in this encounter Care Teams Truck Dock Material Mover Relationship Specialty Start Date End Date Cory Ayers DO PCP - General 07/27/15 documented as of this encounter
--- OUTSIDE RECORDS SUMMARY | 2025-02-15 21:43 | XMS_ITS | Clinical Summary ---
Author Organization [facility] Address [address] [facility] [place] [address] Care Team Providers Care Gaming Cashier Name Role Phone Darnell Raymond MD Unavailable [phone] Stefani Mulligan MD Unavailable [phone] Dano Han MD Primary Care Provider Amalia Gregory MD Unavailable Source Comments [facility],non-owned Affiliates and Associated Physician Practices is amultiple site organization consisting of ambulatory clinics and hospital sitesin [place], [place], [place] and [place]. This disclosure is being madepursuant to the Care Everywhere program and may not contain all information available regarding this patient. Last updated 18.[facility] [employer] Allergies No known active allergies Medications * [...] Description 02/03/2025 12:30 PM CDT Ancillary Procedure [facility] - Radiology [address] [place] [phone] Rex Gresham, SUKUMAR Presence of right artificial knee joint 02/03/2025 12:25 PM CDT Ancillary Procedure [facility] - Radiology [address] [place] [phone] Rex Gresham, SUKUMAR Presence of right artificial knee joint 02/03/2025 11:50 AM CDT Office Visit [facility] [address] [place] [address], [address] [place] [address] Rex Gresham PA-C Presence of right artificial knee joint (Primary Dx); Lumbar spondylosis; Primary osteoarthritis of right hip 02/03/2025 11:40 AM CDT Ancillary Procedure [facility] - Radiology [address] [place] [phone] Rex Gresham PA-C Presence of right artificial [...] on file Legal Sex Female 6:13 PM SPEECH LANGUAGE PATHOLOGIST Gender Identity Female 01/16/2021 10:27 AM CDT Sexual Orientation Not on file Last Filed Vital Signs Vital Sign Reading Time Taken Comments Blood Pressure 159/91 10/08/2023 10:15 AM SPEECH LANGUAGE PATHOLOGIST Pulse 76 10/08/2023 10:15 AM SPEECH LANGUAGE PATHOLOGIST Temperature 36.2 C (97.1 F) 07/12/2021 8:47 AM SPEECH LANGUAGE PATHOLOGIST Respiratory Rate 18 03/26/2021 10:24 AM CDT Oxygen Saturation 98% 10/26/2020 11:25 AM CDT Inhaled Oxygen Concentration - - Weight 70.3 kg (155 lb) 10/08/2023 10:15 AM SPEECH LANGUAGE PATHOLOGIST Height 157.5 cm (5' 2) 10/08/2023 10:15 AM SPEECH LANGUAGE PATHOLOGIST Body Mass Index 28.35 10/08/2023 10:15 AM SPEECH LANGUAGE PATHOLOGIST Plan of Treatment Health Maintenance Due Date [...] this topic Medical Devices Implanted Type Area Stretch Press Operator Device Identifier Shelf Expiration Date Model / Serial / Lot Cmnt Bone Cblt 40gm Hvisc Strl Implanted:Qty: 1 on 12/15/2017 by Darnell Raymond MD at [facility] Right: Knee [employer] 06/10/2019 [id number] / / [id number] Cmpnt Fem Kn Rt Cr Cmnt Prm Vngrd Intlk Implanted:Qty: 1 on 12/15/2017 by Darnell Raymond MD at [facility] Right: Knee [employer] 09/14/2027 [id number] / / [id number] Tray Tib 71mm Kn Cocr I Beam Implanted:Qty: 1 on 12/15/2017 by Darnell Raymond MD at [facility] Right: Knee [employer] 08/07/2027 [id number] / / [id number] Cmpnt Ptlr 28mm 1 Pg Wire Ascnt Arcm Kn Implanted:Qty: 1 on 12/15/2017 by Darnell Raymond MD at [facility] Right: Knee [employer] 09/01/2022 [id number] / / [id number] Brng [id number] Vngrd Arcm Kn Ant Stab Implanted:Qty: 1 on 12/15/2017 by Darnell Raymond MD at [facility] Right: Knee [employer] 09/04/2022 [id number] / / [id number] Procedures Procedure Name Priority Date/Time Associated Diagnosis [...] or 2Vw (02/03/2025 12:30 PM CDT) Narrative [facility] [address] - 02/03/2025 12:30 PM CDT Please see progress note in Epic for results. Rex VALVERDE-C DIAGNOSTIC IMAGING ORDERABL ES Final Result Performing Organization Address [facility] de Phone Number [facility] [address] * XR Lumbar Spine 2 or 3Vw (02/03/2025 12:30 PM CDT) Narrative [facility] [address] - 02/03/2025 12:30 PM CDT Please see progress note in Epic for results. Rex VALVERDE-C DIAGNOSTIC IMAGING ORDERABL ES Final Result Performing Organization Address [facility] Co de Phone Number [facility] [address] * XR Knee Right 3Vw (02/03/2025 11:54 AM CDT) Narrative [facility] [address] - 02/03/2025 11:54 AM CDT Please see progress note in Epic for results. 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 03/15/2020 Insurance MEDICARE [facility] MANAGED MEDICARE ADV MEDICARE Advance Directives * Full Code (Latest Code Status on File) Date Activated Date Inactivated Comments 03/15/2020 5:30 AM 03/18/2020 5:47 PM * Full Code Date Activated Date Inactivated Comments 06/11/2019 10:10 PM 06/13/2019 3:14 PM * Full Code Date Activated Date Inactivated Comments 12/15/2017 2:10 PM 12/18/2017 2:18 PM Care Teams Gaming Cashier Relationship Specialty Start Date End Date Dano Han MD [address] [place] [address] PCP - General 04/03/20 [place] [address] [facility] [address] [place] [address] Orthopedic Surgery 10/30/17 [place] [address] [facility] [address] [place], [place] [id number] Program Evaluation Consultant Cardiovascular Disease 03/28/20 [place] [address] [facility] [address] [place] [address] Rheumatology 10/26/20
--- OUTSIDE RECORDS SUMMARY | 2025-02-15 21:43 | XMS_ITS | Referral Summary ---
Author Organization [facility] [place] Address [address] [place] [address] Care Team Providers Care Mental Tester Name Role Phone Dano Han MD Primary [...] on file Legal Sex Female 3:34 AM BELL PERSON Gender Identity Not on file Sexual Orientation [...] of Treatment Not on file Insurance MEDICARE [facility] MEDICARE [facility] [address] Care Teams Mental Tester Relationship Specialty Start Date End Date Dano Han MD PCP - General Family Practice 08/31/21
--- OUTSIDE RECORDS SUMMARY | 2025-02-15 21:43 | XMS_ITS | Encounter Summary ---
Author Organization [facility] Address [address] [facility] [place] [address] Care Team Providers Care Dot Compliance Coordinator Name Role Phone Darnell Raymond MD Unavailable Stefani Mulligan MD Unavailable [phone] Dano Han MD Primary Care Provider Amalia Gregory MD Unavailable [phone] Reason for Visit * Reason Comments Follow-up RV .. R TKA 12-15-17Xr ay taken todayLast seen 2022 Encounter Details Date Type Department Care Team (Latest Contact Info) Description 02/03/2025 11:50 AM CDT Office Visit [facility] [address] [facility], [address] [address] Rex Gresham PA-C [address] [address] Presence of right artificial knee [...] on file Legal Sex Female 6:13 PM DIESEL LOCOMOTIVE CRANE OPERATOR Gender Identity Female 01/16/2021 10:27 AM [...] evidence of any fractures. SUKUMAR Yanez/Med[facility]ella #: [id number] documented in this encounter Miscellaneous Notes * Addendum Note - Miller, Bita A, LEGAL SPECIALIST - 02/14/2025 4:35 AM CDTAddended by: BITA MILLER on: 02/14/2025 04:35 AM Modules accepted: Level of Service documented in this encounter Plan of Treatment Not on file documented as of this encounter Results * XR Pelvis 1 or 2Vw (02/03/2025 12:30 PM CDT) Narrative [facility] [address] - 02/03/2025 12:30 PM CDT Please see progress note in Epic for results. Rex Gresham PA-C DIAGNOSTIC IMAGING ORDERABL ES Final Result Performing Organization Address [facility] Co de Phone Number [facility] [address] * XR Lumbar Spine 2 or 3Vw (02/03/2025 12:30 PM CDT) Narrative [facility] [address] - 02/03/2025 12:30 PM CDT Please see progress note in Epic for results. Rex Gresham PA-C DIAGNOSTIC IMAGING ORDERABL ES Final Result Performing Organization Address [facility] Co de Phone Number [facility] [address] * XR Knee Right 3Vw (02/03/2025 11:54 AM CDT) Narrative [facility] [address] - 02/03/2025 11:54 AM CDT Please see progress note in Epic for results. Rex Gresham PA-C DIAGNOSTIC IMAGING ORDERABL ES Final Result Performing Organization Address City/[facility] Co de Phone Number [facility] [address] documented in this encounter Visit [...] documented as of this encounter Care Teams Dot Compliance Coordinator Relationship Specialty Start Date End Date Dano Han MD [address] [place] [address] PCP - General 04/03/20 [place] [address] [facility] [address] [place] [address] Orthopedic Surgery 10/30/17 [place] [address] [facility] [address] [place] [address] Driller And Reamer Cardiovascular Disease 03/28/20 [place] [address] [facility] [address] [place] [address] Rheumatology 10/26/20 documented as of this encounter
--- OUTSIDE RECORDS SUMMARY | 2025-02-15 21:43 | XMS_ITS | Encounter Summary ---
Author Organization [facility] Address [address] [place] [address] Care Team Providers Care Engine Room Operator Name Role Phone Cory Ayers DO Primary Care Provider Encounter Details Date Type Department Care Team (Late st Contact Info) Description 07/26/2002 Inpatient Historical [facility] Antolin Modi MD [address] [facility] [address] [place] [address] POSTOP VAGINAL PROLAPSE (Primary Dx) Social History Tobacco Use Types Packs/Day Years Used Date Smoking Tobacco: Never Assessed Comments Unknown Sex and Gender Information Value Date Recorded Sex Assigned at Not on file Legal Sex Female 4:21 AM SILK PRINTER Gender Identity Not on file Sexual Orientation Not on file documented as of this encounter Plan of Treatment Not on file documented as of this encounter Visit Diagnoses Diagnosis 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
--- OUTSIDE RECORDS SUMMARY | 2025-02-15 21:43 | XMS_ITS | Encounter Summary ---
Author Organization [facility] Address [address] [place] [address] Care Team Providers Care Exceptional Children Teacher Name Role Phone Cory Ayers DO Primary [...] on file Legal Sex Female 4:21 AM SOFTWARE COMPUTER SPECIALIST Gender Identity Not on file Sexual Orientation Not on file documented as of this encounter Plan of Treatment Not on file documented as of this encounter Visit Diagnoses Diagnosis Disorders of bursae and tendons in shoulder region, unspecified- Primary documented in this encounter Care Teams Exceptional Children Teacher Relationship Specialty Start Date End Date Cory Ayers DO PCP - General 07/27/15 documented as of this encounter
--- OUTSIDE RECORDS SUMMARY | 2025-02-15 21:43 | XMS_ITS | Encounter Summary ---
Author Organization [facility] Address [address] [place] [address] Care Team Providers Care Bread Panner Name Role Phone Cory Ayers DO Primary Care Provider Encounter Details Date Type Department Care Team (Late st Contact Info) Description 10/29/1999 Outpatient Historical [facility],NON-PATIENT Hiram Trivedi MD [address] [place] [address] Social History Tobacco Use Types Packs/Day Years Used Date Smoking Tobacco: Never Assessed Comments Unknown Sex and Gender Information Value Date Recorded Sex Assigned at Not on file Legal Sex Female 4:21 AM RN PHYSICIAN OFFICE Gender Identity Not on file Sexual Orientation Not on file documented as of this encounter Plan of Treatment Not on file documented as of this encounter Visit Diagnoses Not on filedocumented in this encounter Care Teams Bread Panner Relationship Specialty Start Date End Date Cory Ayers DO PCP - General 07/27/15 documented as of this encounter
--- OUTSIDE RECORDS SUMMARY | 2025-02-15 21:43 | XMS_ITS | Clinical Summary ---
Author Organization [facility] [place] Address [address] [place] [address] Care Team Providers Care Cota Name Role Phone Dano Han MD Primary [...] on file Legal Sex Female 3:34 AM SUPPORT ARCHITECT Gender Identity Not on file Sexual [...] 05/13/2019, 05/13/2019, Additional history exists Insurance MEDICARE [facility] MEDICARE [facility] Care Teams Cota Relationship Specialty Start Date End Date Dano Han MD PCP - General Family Practice 08/31/21
--- OUTSIDE RECORDS SUMMARY | 2025-02-15 21:43 | XMS_ITS | Encounter Summary ---
Author Organization [facility] Address [address] [place] [address] Care Team Providers Care Head Automatic Sawyer Name Role Phone Cory Ayers DO Primary Care Provider Encounter Details Date Type Department Care Team (Late st Contact Info) Description 02/01/2000 Outpatient Historical [facility] Hiram Trivedi MD [address] [place] [address] Social History Tobacco Use Types Packs/Day Years Used Date Smoking Tobacco: Never Assessed Comments Unknown Sex and Gender Information Value Date Recorded Sex Assigned at Not on file Legal Sex Female 4:21 AM KITCHEN HAND Gender Identity Not on file Sexual Orientation Not on file documented as of this encounter Plan of Treatment Not on file documented as of this encounter Visit Diagnoses Not on filedocumented in this encounter Care Teams Head Automatic Sawyer Relationship Specialty Start Date End Date Cory Ayers DO PCP - General 07/27/15 documented as of this encounter
--- OUTSIDE RECORDS SUMMARY | 2025-02-15 21:43 | XMS_ITS | Encounter Summary ---
Author Organization [facility] Address 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
--- OUTSIDE RECORDS SUMMARY | 2025-02-15 21:43 | XMS_ITS | Continuity of Care Document ---
Author Organization [facility] Address [address] [place] [address] Phone Care Team Providers Care Retirement Village Manager Name Role Phone Carranza OD, Indra Unavailable Unavailable Procedures Procedure Date Eye Exam Established Pt No Script Advance Directives Directive Yes / No Effective Date File Name No Information Encounters Encounter Description Practice Location Reason(s) For Visit Diagnoses Date Provider Providers Copied on Encounter [facility], [address], [place], [place], [id number], [place] tel:[phone] [facility] No Information 9-200 9 Carranza OD Indra. [address] , [address], [place], [address], [place]. tel:[phone] Family History Family Member Type Diagnosis Age At Onset No Information Payers Payer name Insurance type Covered libertarian ID Authoriza tion(s) Medicare [place] [id number] [place] Commercial [place] [id number] Social History Type Description Quantity Date Captured [...]
--- OUTSIDE RECORDS SUMMARY | 2025-02-15 21:45 | XMS_ITS | Continuity of Care Document ---
Author Organization [facility] Address [address] [place] [address] Phone Care Team Providers Care Battery Parts Assembler Name Role Phone Carranza OD, Indra Unavailable Unavailable Procedures Procedure Date Eye Exam Established Pt No Script Advance Directives Directive Yes / No Effective Date File Name No Information Encounters Encounter Description Practice Location Reason(s) For Visit Diagnoses Date Provider Providers Copied on Encounter [facility], [address], [place], [place], [id number], [place] tel:[phone] [facility] No Information 9-200 9 Carranza OD Indra. [address] , [address], [place], [address], [place]. tel:[phone] Family History Family Member Type Diagnosis Age At Onset No Information Payers Payer name Insurance type Covered republican ID Authoriza tion(s) Medicare [place] [id number] [place] Commercial BL [id number] Social History Type Description Quantity Date Captured [...]
--- OUTSIDE RECORDS SUMMARY | 2025-02-15 21:45 | XMS_ITS | Continuity of Care Document ---
Author Organization [facility] Address [address] [place] [address] [address] [place] [address] Phone Care Team Providers Care Benefits Manager Name Role Phone Richi PT,MPT,ATC, Daniel Unavailable [...] Diagnoses Date Provider Providers Copied on Encounter [facility], [place], [place], [address], tel:[phone] [place] No Information 1 [facility], [place], [place], [address], tel:[phone] [place] No Information 1 Richi Lamar [place], . [facility], [place], [place], [address], tel:[phone] [place] No Information 1 Richi Lamar [place], . [facility], [address], [place], [place], [address], tel:[phone] [place] No Information 0 1 Richi Lamar , [place], [place]. [facility], [place], [place], [address], [place] tel:[phone] [place] No Information 1 Richi Lamar , [place], [place]. [facility], [place], [place], [address], [place] tel:[phone] [place] No Information 1 Richi Lamar , [place], [place]. [facility], [place], [place], [address], [place] tel:[phone] [place] No Information 1 Raymond [place]. . [facility], [place], [place], [address], [place] tel:[phone] [place] No Information 1 Richi Lamar , [place], [place]. [facility], [place], [place], [address], [place] tel:[phone] [place] No Information 1 Richi Lamar [place], [place]. [facility], [place], [place], [address], [place] tel:[phone] [place] No Information 1 Richi Lamar , [place], [place]. [facility], [place], [place], [address], [place] tel:[phone] [place] No Information 1 Richi Lamar [place], [place]. [facility], [place], [place], [address], [place] tel:[phone] [place] No Information 1 Richi Lamar [place], [place]. [facility], [place], [place], [address], [place] tel:[phone] [place] No Information 1 Stoddard Daniel. , [place], [place]. [facility], [address], [place], [place], [address], tel:[phone] [place] No Information 1 Stoddard Daniel. , [place], [place]. [facility], [place], [place], [address], [place] tel:[phone] [place] No Information 1 Stoddard Daniel. , [place], [place]. [facility], [address], [place], [place], [address], [place] tel:[phone] [place] No Information 1 Stoddard Daniel. , [place], [place]. [facility], [address], [place], [place], [address], [place] tel:[phone] [place] No Information 1 Stoddard Daniel. , [place], [place]. [facility], [address], [place], [place], [address], [place] tel:[phone] [place] No Information 3 Chetan Lynda. [address] [place] [address], [address], [place], [facility], . tel: [phone] Referring Provider: Sean Graff, [address] [place] [address] [address], [place], [facility]. tel:[phone] [facility], [place], [place], [address], [place] tel:[phone] [place] Pain in joint involving pelvic region and thigh 3 Chetan Lynda. [address] [facility], [address], [place], [facility], . tel: [phone] Referring Provider: Sean Graff, [address] [place] [address] [address], [place], [place], [facility]. tel:[phone] Family History Family Member Type Diagnosis Age At Onset No Information Payers Payer name Insurance type Covered libertarian ID Authoriza tion(s) Medicare [place] MB [id number] [facility] [id number] Social History Type Description Quantity Date Captured [...]
[2025-02-15 22:42] VITALS: BMI 30.2
[2025-02-15 22:56] VITALS: BP 140/90; PULSE 107; RESP 14; TEMP 36.6; O2SAT 100
--- NOTE | 2025-02-15 23:58 | PC.NURSE ---
patient arrived from [facility] via stretcher from ED 2248.
--- NOTE | 2025-02-16 | ECHO_ITS ---
Patient Info Name: Rosa Veronica Age: 84 years : 1940 Gender: Female Ht: 60 in Wt: 154 lbs BSA: 1.75 m2 HR: 115 bpm BP: 173 / 102 mmHg Technical Quality: Poor Exam Date: 02/16/2025 12:29 PM Patient Status: I Admit Date: 02/16/2025 Exam Type: CA echo limited Limited two-dimensional transthoracic echocardiogram is performed. Staff Referring Physician: Alex Bond [employer] Administrator: Nolvia Britton Attending Provider: Ammon Mata Reason for Poor Study: patient body habitus Summary 1. Technically difficult study with poorly visualized and very limited acoustic windows. 2. The left ventricular systolic function is hyperdynamic. The left ventricular ejection fraction is visually estimated to be greater than 70%. 3. The right ventricle is normal in size and systolic function. 4. There is small size pericardial effusion without diastolic collapse. Left Ventricle The left ventricular systolic function is hyperdynamic. The left ventricular ejection fraction is visually estimated to be greater than 70%. Right Ventricle The right ventricle is normal in size and systolic function. Pericardium/Pleural There is small size pericardial effusion without diastolic collapse. Report Signatures
[2025-02-16] MEDS: ONDANSETRON INJ 4 MG/2 ML VIAL IV PUSH ×2 (04:21→12:52)
[2025-02-16 05:53] LABS: Hematocrit 39.1 % (37.0-47.0); Hemoglobin 12.4 g/dL (12.0-15.0); Immature Platelet Fraction Pct 2.4 % (0.9-11.2); Mean Corpuscular HGB Conc 31.7 g/dl (32-36); Mean Corpuscular Hemoglobin 30.8 pg (26-34); Mean Corpuscular Volume 97.0 fl (80-100); Platelet Count Result 147 k/mm3 (150-375); Red Blood Count 4.03 M/mm3 (4.2-5.4); White Blood Count 7.9 K/mm3 (4.5-10.0)
[2025-02-16 05:58] VITALS: BP 173/102; PULSE 115; RESP 14; TEMP 36.2; O2SAT 96
[2025-02-16 06:33] LABS: Anion Gap 7 mmol/L (4-12); Blood Urea Nitrogen 14 mg/dL (7-17); Calcium 8.6 mg/dL (8.4-10.2); Carbon Dioxide 24 mmol/L (22-30); Chloride 106 mmol/L (98-107); Estimated CRCL calculation 49 ml/min; Estimated Glomerular Filt Rate > 60; Glucose 89 mg/dL (65-110); Potassium 3.7 mmol/L (3.4-5.0); Sodium 137 mmol/L (137-145)
[2025-02-16] MEDS: LACTATED RINGERS 1,000 ML 100 ML IV CONT (08:35)
--- NOTE | 2025-02-16 08:50 | P.HP_ITS ---
H&P: HPI History of Present Illness Date/Time: 02/16/25 08:50 Chief Complaint: Abdomen pain Narrative: patient has a prior history, history is taken from patient and patient's at bedside 84-year-old female with history of hypertension, COPD, brought to ED because of nausea vomiting and abdomen pain. Patient has been having nausea decreased p.o. intake and abdominal pain in past few days. patient denies vomiting, diarrhea. Patient also denies chest pain. Patient has mild cough without phlegm. Patient was found drowsy, and shortness shortness breath per family. Patient denies dysuria, or painful urination Upon arrival to ED, patient was afebrile, blood pressure stable, patient has tachycardia 115 Patient was found have leukocytosis 10,100 with left shift, Chemistry showed elevated BUN creatinine ratio 18/0.76, lactic acid 2.7, Margin high liver enzymes UA showed cloudy urine, positive nitrate, pyuria white blood cell more than [address] abdomen pelvis showed mural thickening of bladder suggesting acute cholecystitis, redemonstration of a common bile duct dilatation Review of Systems Review of Systems: ROS negative except above PMFSH Past Medical History Medical History GERD (gastroesophageal reflux disease) History of esophageal stricture Esophageal dysphagia History of TIA (transient ischemic attack) Dyslipidemia Oropharyngeal dysphagia History of CVA (cerebrovascular accident) Osteopenia Paralysis of right vocal cord Chronic low back pain Vitamin D deficiency 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 Chronic venous insufficiency of lower extremity Hemorrhoid Anticoagulant long-term use Hypokalemia Atrial fibrillation Obstructive sleep apnea (~10/2020) Polysomnogram suggesting CPAP pressure of 13 with 3 L bleed in O2 Pulmonary embolism History of cerebral hemorrhage History of stroke History of skin cancer Hyperlipidemia Esophageal stricture (~10/2021) History of shingles History of blood clots 2015 - RUE COPD (chronic obstructive pulmonary disease) With CT demonstrating emphysema with mild bronchiectasis GERD without esophagitis Essential (primary) hypertension Rheumatoid arthritis Follows with Rheumatology Surgical History Surgical History History of hemorrhoidectomy History of esophageal dilatation 10/2021, 04/2021 History of hemorrhoidectomy 05/08/2021 History of esophagogastroduodenoscopy (EGD) (~05/2020) History of umbilical hernia repair (10/2020) H/O angioplasty (~2018) H/O brain surgery (~2014) 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 History of knee replacement Right H/O shoulder surgery (~1964) H/O Spinal surgery (~1968) spinal tumor removed H/O: hysterectomy (~1974) History of appendectomy (~194) H/O abdominoplasty (~2017) Family History Family History (Updated 02/16/25 @ 00:29 by Stephanie Haynes RN) Father Hyperlipidemia Family history of Alzheimer's disease Hypertension Mother Hypertension Other Diabetes mellitus Heart disease Nervous disorder Hypertension Cerebrovascular accident Other Family history of arthritis Family history of thyroid disease Social History Social History Social History: She has been 3 times. Her 1st after 40 years of marriage. Her 2nd after 5 years . She has been ma rried to her current has been for 12 years. She has 3 children who are healthy. She is a lifelong nonsmoker and does not drink alcohol. Smoking status: Never smoker Second hand tobacco smoke exposure: No Alcohol intake: never Substance use: never Substance use type: does not use Do You Feel Safe in your Home?: Yes Lack of Transportation: No Lack of Food: Never True Current Housing: I Have Housing Concerned About Future Housing: No Difficulty Paying Gas/Electric Bills: No Difficulty Paying for Meds: No Currently Unemployed: No Education: Don't Know Difficulty w/ Childcare or Family Care: No Living arrangements: with family Occupation/Education: retired Gender identity (if verbalized by the patient): Female Sexual Orientation (if Verbalized by the Patient): Straight or Heterosexual Spiritual care concerns: No Agree to blood products: Yes Meds Home Medications and Allergies Home Medications ?Medication ?Instructions ?Recorded ?Confirmed ?Type diphenhydramine 25 1 tablet PO HS 10/24/21 02/15/25 History mg-acetaminophen 500 mg tablet (Tylenol PM Extra Strength) prednisone 2.5 mg tablet 5 mg PO BID 03/05/23 02/15/25 History tramadol 50 mg tablet 50 mg PO TID PRN Pain 07/21/23 02/16/25 History acetaminophen 500 mg tablet 500 mg PO TID PRN Pain 10/01/23 02/15/25 History (Tylenol Extra Strength) [id number]-[id number] tablet 1 tablet PO DAILY 10/20/23 02/15/25 History omeprazole 40 mg capsule,delayed 40 mg PO DAILY 10/14/24 02/15/25 History release hydroxychloroquine 200 mg tablet 400 mg PO DAILY 11/16/24 02/16/25 History atorvastatin 40 mg tablet 40 mg PO QHS #90 tabs 01/13/25 02/15/25 Rx metoprolol succinate 25 mg 25 mg PO DAILY #90 tabs 01/24/25 02/15/25 Rx tablet,extended release 24 hr lisinopril 40 mg tablet 40 mg PO DAILY #90 tabs 02/07/25 02/15/25 Rx hydrochlorothiazide 25 mg tablet 25 mg PO DAILY 02/16/25 02/16/25 History Allergies Allergy/AdvReac Type Severity Reaction Status Date / Time No Known Allergies Allergy Verified 02/15/25 18:01 Vital Signs Vital Signs - 24 hr 02/15/25 17:58 02/15/25 18:48 02/15/25 20:28 Temperature 97.6 F Pulse Rate 116 H 110 H 109 H Respiratory Rate 18 32 H 20 Blood Pressure 135/94 H 118/94 H 140/97 H Pulse Oximetry 96 97 96 Oxygen Delivery Room Air 02/15/25 22:56 02/16/25 05:58 Temperature 97.9 F 97.2 F L Pulse Rate 107 H 115 H Respiratory Rate 14 14 Blood Pressure 140/90 173/102 H Pulse Oximetry 100 96 Oxygen Delivery Exam Narrative: GENERAL: Ill-appearing, in no acute distress. Well-nourished. - EYES: EOMI. Anicteric. - HENT: moist mucous membranes. - LUNGS: coarse breath sound bilaterally - CARDIOVASCULAR: Regular rate and rhyth m. No murmur. No JVD. - ABDOMEN: Soft, non-tender and non-dist ended. No palpable masses. - EXTREMITIES: No edema. Peripheral puls es 2+. Non-tender. - NEUROLOGIC: No focal neurological defi cits. CN II-XII grossly intact. - PSYCHIATRIC: Awake, Alert and oriented x 3. Appropriate mood and affect. general weakness - SKIN: No rashes or lesions. Warm. - LYMPH: No cervical lymphadenopathy. H&P: Results Labs Labs: Short CBC 02/15/25 02/16/25 Range/Units 18:18 05:22 WBC 10.1 H 7.9 (4.5-10.0) K/mm3 Hgb 13.9 12.4 (12.0-15.0) g/dL Hct 43.7 39.1 (37.0-47.0) % Plt Count 183 D 147 L (150-375) k/mm3 BMP 02/15/25 02/16/25 18:18 05:22 Sodium 138 137 Potassium 3.9 3.7 Chloride 106 106 Carbon Dioxide 23 24 BUN 18 H 14 Creatinine 0.76 0.62 L Glucose 124 H 89 Calcium 9.3 8.6 Liver Function 02/15/25 Range/Units 18:18 Total Bilirubin 1.1 (0.2-1.3) mg/dL AST 52 H (14-36) U/L ALT 37 H (6-35) U/L Alkaline Phosphatase 182 H (38-126) U/L Albumin 3.3 L (3.5-5.1) g/dL Urine 02/15/25 Range/Units 18:36 Urine Color Dark yellow (Yellow) Urine Appearance Cloudy H (Clear) Urine pH 5.5 (5.0-9.0) Ur Specific [place] 1.018 (1.001-1.035) Urine Protein 1+ H (Negative) mg/dL Urine Glucose (UA) Negative (Negative) mg/dL Assessment and Plan Assessment and plan (1) Essential (primary) hypertension: Code(s): I10 - Essential (primary) hypertension Status: Chronic (2) Urinary tract infection: Code(s): N39.0 - Urinary tract infection, site not specified Status: Acute (3) Dehydration: Code(s): E86.0 - Dehydration Status: Acute Plan UTI UA shows pyuria and hematuria CT shows cystitis Continue ceftriaxone 2 g IV daily Pending urine culture Repeat urinalysis, if hematuria persists, consult urologist for evaluation Sepsis Patient has leukocytosis, tachycardia, lactic acidosis, meeting criteria of sepsis Likely resulting from UTI Pending blood culture urine culture Patient received fluid resuscitation Essential hypertension Continue lisinopril 40 mg daily p.o. metoprolol 25 mg daily p.o. history of COPD Patient has some shortness breath, also has some soft cough without phlegm Chest x-ray showed No infiltrates, effusions or pneumothorax. Underlying fibrotic changes. patient is on room air History of esophageal dysphagia and stricture dilatation Patient denies trouble with swallowing poor appetite Likely secondary to sepsis and UTI
[2025-02-16 10:18] VITALS: O2SAT 92
[2025-02-16 11:28] LABS: NT Pro B Type Natriuretic Pept 634 pg/mL (19.9-100)
[2025-02-16] MEDS: MULTIVITAMINS /C LUTEIN (CENTRUM SILVER) TABLET *BKC 1 TAB PO (12:48)
[2025-02-16] MEDS: PANTOPRAZOLE 40 MG TABLET PO ×2 (12:48→17:43)
[2025-02-16 14:00] VITALS: BP 133/76; PULSE 114; RESP 18; TEMP 36.1; O2SAT 92
[2025-02-16] MEDS: traMADol HCL (*CRX) 50 MG TABLET 100 MG PO (17:51)
[2025-02-16] MEDS: METOCLOPRAMIDE HCL INJ 10 MG/2 ML VIAL IV PUSH ×2 (18:56→23:54)
--- NOTE | 2025-02-16 19:37 | PC.NURSE ---
On 02/16/25, the REAL ESTATE CLOSING COORDINATOR, Kourtney Ballard, provided care and completed [employer] documentation on this patient. I have reviewed the REAL ESTATE CLOSING COORDINATOR's documentation and agree with the findings.
[2025-02-16] MEDS: cefTRIAXone 1 GM in SODIUM CHLORIDE 0.9% IV 50 ML 100 ML IVPB (20:37)
[2025-02-16] MEDS: ATORVASTATIN 40 MG TABLET PO (20:38)
[2025-02-16] MEDS: ACETAMINOPHEN 500 MG TABLET PO (20:38)
[2025-02-16] MEDS: diphenhydrAMINE HCl CAP 25 MG CAPSULE PO (20:39)
[2025-02-16 21:54] VITALS: BP 119/85; PULSE 116; RESP 14; TEMP 36.3; O2SAT 92
[2025-02-17 05:23] VITALS: BP 132/90; PULSE 98; RESP 14; TEMP 36.6; O2SAT 95
[2025-02-17] MEDS: METOCLOPRAMIDE HCL INJ 10 MG/2 ML VIAL IV PUSH ×3 (05:45→18:59)
[2025-02-17 08:30] LABS: Hematocrit 40.3 % (37.0-47.0); Hemoglobin 12.4 g/dL (12.0-15.0); Immature Granulocyte Percent A 0.4 % (0-0.5); Lymphocytes Absolute Auto 1.12 K/mm3 (0.9-3.2); Mean Corpuscular HGB Conc 30.8 g/dl (32-36); Mean Corpuscular Hemoglobin 31.0 pg (26-34); Mean Corpuscular Volume 100.8 fl (80-100); Nucleated Red Blood Cells Absolute Auto 0.000 K/mm3 (0.0-0.012); Nucleated Red Blood Cells Perc 0.0 % (0.0-0.2); Platelet Count Result 135 k/mm3 (150-375); Red Blood Count 4.00 M/mm3 (4.2-5.4); White Blood Count 7.1 K/mm3 (4.5-10.0)
[2025-02-17 08:49] LABS: Alanine Aminotransferase 23 U/L (6-35); Albumin Level 2.7 g/dL (3.5-5.1); Alkaline Phosphatase 104 U/L (38-126); Anion Gap 6 mmol/L (4-12); Aspartate Amino Transferase 48 U/L (14-36); Bilirubin,Total 1.1 mg/dL (0.2-1.3); Blood Urea Nitrogen 19 mg/dL (7-17); Calcium 8.2 mg/dL (8.4-10.2); Carbon Dioxide 22 mmol/L (22-30); Chloride 106 mmol/L (98-107); Estimated CRCL calculation 41 ml/min; Estimated Glomerular Filt Rate > 60; Glucose 122 mg/dL (65-110); Potassium 4.0 mmol/L (3.4-5.0); Sodium 134 mmol/L (137-145); Total Protein 5.1 g/dL (6.3-8.2)
[2025-02-17 08:59] VITALS: PULSE 104
[2025-02-17] MEDS: METOPROLOL SUCCINATE EXT REL 25 MG TABCR PO (08:59)
[2025-02-17] MEDS: HYDROXYCHLOROQUINE SULFATE 200 MG TABLET PO (08:59)
[2025-02-17] MEDS: MULTIVITAMINS /C LUTEIN (CENTRUM SILVER) TABLET *BKC 1 TAB PO (08:59)
[2025-02-17] MEDS: PANTOPRAZOLE 40 MG TABLET PO ×2 (09:00→17:13)
--- NOTE | 2025-02-17 10:19 | PM.IMPN ---
Progress Note: A&P Assessment and Plan (1) Essential (primary) hypertension: Code(s): I10 - Essential (primary) hypertension Status: Chronic (2) Urinary tract infection: Code(s): N39.0 - Urinary tract infection, site not specified Status: Acute (3) Dehydration: Code(s): E86.0 - Dehydration Status: Acute Plan UTI UA shows pyuria and hematuria CT shows cystitis Continue ceftriaxone 2 g IV daily Pending urine culture Repeat urinalysis, if hematuria persists, consult urologist for evaluation Sepsis Patient has leukocytosis, tachycardia, lactic acidosis, meeting criteria of sepsis Likely resulting from UTI Pending blood culture urine culture Patient received fluid resuscitation Poor intake Start normal saline 75 mL/hour Essential hypertension Continue lisinopril 40 mg daily p.o. metoprolol 25 mg daily p.o. history of COPD Patient has some shortness breath, also has some soft cough without phlegm Chest x-ray showed No infiltrates, effusions or pneumothorax. Underlying fibrotic changes. patient is on room air History of esophageal dysphagia and stricture dilatation Patient denies trouble with swallowing poor appetite Likely secondary to sepsis and UTI Subjective Date/time seen: 02/17/25 10:19 Interval history: I saw exam patient today, patient feels better today, patient mental status is improving. Patient still has a poor intake Afebrile overnight, still has sinus tachycardia Exam Narrative: GENERAL: Ill-appearing, in no acute distress. Well-nourished. - EYES: EOMI. Anicteric. - HENT: moist mucous membranes. - LUNGS: coarse breath sound bilaterally - CARDIOVASCULAR: Regular rate and rhythm. No murmur. No JVD. - ABDOMEN: Soft, non-tender and non-distended. No palpable masses. - EXTREMITIES: No edema. Peripheral pulses 2+. Non-tender. - NEUROLOGIC: No focal neurological deficits. CN II-XII grossly intact. - PSYCHIATRIC: Awake, Alert and oriented x 3. Appropriate mood and affect. general weakness - SKIN: No rashes or lesions. Warm. - LYMPH: No cervical lymphadenopathy. Objective Data Vital Signs Vital Signs: Vital Signs - 24 hr 02/16/25 14:00 02/16/25 21:54 02/17/25 05:23 Temperature 97.0 F L 97.4 F L 97.9 F Pulse Rate 114 H 116 H 98 Respiratory Rate 18 14 14 Blood Pressure 133/76 119/85 132/90 Pulse Oximetry 92 92 95 02/17/25 08:59 Temperature Pulse Rate 104 H Respiratory Rate Blood Pressure Pulse Oximetry Intake/Output Intake/Output: Intake & Output 02/14/25 02/15/25 02/16/25 02/17/25 23:59 23:59 23:59 23:59 Intake Total 3050 2076.7 200 Output Total 85 600 25 Balance 2965 1476.7 175 Meds/Results Medications: Active Medications Generic Name Dose Route Start Last Admin Trade Name Freq PRN Reason Stop Dose Admin Acetaminophen 500 mg 02/16/25 09:13 Acetaminophen 500 Mg Tablet PO TID PRN Pain Acetaminophen 500 mg 02/16/25 21:00 02/16/25 20:38 Acetaminophen 500 Mg Tablet PO 500 mg HS ILA Administration Atorvastatin Calcium 40 mg 02/16/25 21:00 02/16/25 20:38 Atorvastatin 40 Mg Tablet PO 40 mg QHS ILA Administration Diphenhydramine HCl 25 mg 02/16/25 21:00 02/16/25 20:39 Diphenhydramine Hcl Cap 25 Mg Capsule PO 25 mg HS ILA Administration Hydroxychloroquine Sulfate 200 mg 02/17/25 09:00 02/17/25 08:59 Hydroxychloroquine Sulfate 200 Mg Tablet PO 200 mg DAILY ILA Administration Ceftriaxone Sodium 1 gm/ 50 mls @ 100 mls/hr 02/16/25 20:00 02/16/25 20:37 Sodium Chloride IVPB 100 mls/hr Q24H ILA Administration Lactated Ringer's 1,000 mls @ 100 mls/hr 02/15/25 20:30 02/16/25 10:39 Lr - Lactated Ringers Iv IV CONT 0 mls/hr .Q10H ILA Infusion Lisinopril 40 mg 02/17/25 09:00 02/17/25 08:59 Lisinopril 20 Mg Tablet PO 40 mg DAILY ILA Administration Metoclopramide HCl 10 mg 02/16/25 18:20 02/17/25 05:45 Metoclopramide Hcl Inj 10 Mg/2 Ml Vial IV PUSH 10 mg Q6HR ILA Administration Metoprolol Succinate 25 mg 02/17/25 09:00 02/17/25 08:59 Metoprolol Succinate Ext Rel 25 Mg Tabcr PO 25 mg DAILY ILA Administration Multivitamins/Minerals 1 tab 02/16/25 11:00 02/17/25 08:59 Multivitamins /C Lutein (Centrum Silver) Tablet *Bkc PO 1 tab QAM ILA Administration Pantoprazole Sodium 40 mg 02/16/25 11:00 02/17/25 09:00 Pantoprazole 40 Mg Tablet PO 40 mg BID ILA Administration Perflutren Lipid Microsphere 0 ml 02/16/25 10:46 Perflutren Lipid Microspheres 1.5 Ml Vial Diluted To 10 Ml Total Volume IV PUSH 02/19/25 10:47 ONCE PRN adequate visualization Protocol Prednisone 5 mg 02/16/25 17:00 02/17/25 08:59 Prednisone 5 Mg Tablet PO 5 mg BID ILA Administration Tramadol HCl 100 mg 02/16/25 09:13 02/16/25 17:51 Tramadol Hcl (*Crx) 50 Mg Tablet PO 100 mg TID PRN Administration Pain Radiology Results: ITS Impressions Abdomen/Pelvis CT 02/15/25 19:25 IMPRESSION: Edematous mural thickening within the rectum, an interval change from prior. Significant mural thickening within the bladder with surrounding inflammatory change for which cystitis is suspected. Redemonstration of common bile duct dilatation to 11 mm, increased from 9 mm on the previous study. Heterogeneous enhancement of the liver, unchanged from prior. Chest X-Ray 02/16/25 12:19 Impression: Clear lungs. Stable cardiomegaly with loop recorder. Labs Labs: Laboratory Results - last 24 hr 02/16/25 02/16/25 02/17/25 05:22 18:01 08:20 WBC 7.1 RBC 4.00 L Hgb 12.4 Hct 40.3 MCV 100.8 H MCH 31.0 MCHC 30.8 L RDW 15.4 H Plt Count 135 L MPV 9.7 Immature Gran % (Auto) 0.4 Neut % (Auto) 75.1 H Lymph % (Auto) 15.8 L [place] % (Auto) 7.3 Eos % (Auto) 0.7 Baso % (Auto) 0.7 Lymph # (Auto) 1.12 [place] # (Auto) 0.5 Eos # (Auto) 0.1 Baso # (Auto) 0.1 Abs Immat Gran (auto) 0.03 Absolute Neuts (auto) 5.3 Absolute Nucleated RBC 0.000 Nucleated RBC % 0.0 Sodium 134 L Potassium 4.0 Chloride 106 Carbon Dioxide 22 Anion Gap 6 BUN 19 H Creatinine 0.77 Estim Creat Clear Calc 41 Estimated GFR > 60 Glucose 122 H Lactic Acid 1.3 Calcium 8.2 L Total Bilirubin 1.1 AST 48 H ALT 23 Alkaline Phosphatase 104 NT-Pro-B Natriuret Pep 634 H Total Protein 5.1 L Albumin 2.7 L
[2025-02-17] MEDS: SODIUM CHLORIDE 0.9% IV 1,000 ML 75 ML IV CONT (13:46)
[2025-02-17 14:00] VITALS: BP 113/68; PULSE 81; RESP 16; TEMP 36.1; O2SAT 94
--- NOTE | 2025-02-17 19:37 | PC.NURSE ---
On 02/17/25, the TIRE TESTER, Kourtney Ballard, provided care and completed [employer] documentation on this patient. I have reviewed the TIRE TESTER's documentation and agree with the findings.
[2025-02-17 20:00] VITALS: PULSE 72; RESP 16; O2SAT 93
[2025-02-17 21:33] VITALS: BP 129/76; PULSE 72; RESP 16; TEMP 37.4; O2SAT 93
[2025-02-17] MEDS: cefTRIAXone 1 GM in SODIUM CHLORIDE 0.9% IV 50 ML 100 ML IVPB (21:35)
[2025-02-17] MEDS: ACETAMINOPHEN 500 MG TABLET PO (21:38)
[2025-02-17] MEDS: diphenhydrAMINE HCl CAP 25 MG CAPSULE PO (21:38)
[2025-02-17] MEDS: ATORVASTATIN 40 MG TABLET PO (21:38)
[2025-02-18 04:30] VITALS: BP 151/81; PULSE 70; RESP 20; TEMP 36.2; O2SAT 96
[2025-02-18] MEDS: SODIUM CHLORIDE 0.9% IV 1,000 ML 75 ML IV CONT (05:30)
--- NOTE | 2025-02-18 08:27 | P.PNIM_ITS ---
Progress Note: A&P Assessment and Plan (1) Essential (primary) hypertension: Code(s): I10 - Essential (primary) hypertension Status: Chronic (2) Urinary tract infection: Code(s): N39.0 - Urinary tract infection, site not specified Status: Acute (3) Dehydration: Code(s): E86.0 - Dehydration Status: Acute Plan UTI UA shows pyuria and hematuria CT shows cystitis Continue ceftriaxone 2 g IV daily Pending urine culture Repeat urinalysis, if hematuria persists, consult urologist for evaluation Sepsis Patient has leukocytosis, tachycardia, lactic acidosis, meeting criteria of sepsis Likely resulting from UTI Urine culture grows E coli, pending susceptibility Blood culture pending Patient received fluid resuscitation Poor intake Received normal saline 75 mL/hour Appetite improving, DC IV fluid Essential hypertension Continue lisinopril 40 mg daily p.o. metoprolol 25 mg daily p.o. history of COPD Patient has some shortness breath, also has some soft cough without phlegm Chest x-ray showed No infiltrates, effusions or pneumothorax. Underlying fibrotic changes. patient is on room air History of esophageal dysphagia and stricture dilatation Patient denies trouble with swallowing poor appetite Likely secondary to sepsis and UTI Subjective Date/time seen: 02/18/25 08:27 Interval history: I saw exam patient today, patient feels better today, patient mental status is improving. Afebrile overnight, still has sinus tachycardia Urine culture grows E coli, pending susceptibility Blood culture pending Exam Narrative: GENERAL: Ill-appearing, in no acute distress. Well-nourished. - EYES: EOMI. Anicteric. - HENT: moist mucous membranes. - LUNGS: coarse breath sound bilaterally - CARDIOVASCULAR: Regular rate and rhyth m. No murmur. No JVD. - ABDOMEN: Soft, non-tender and non-dist ended. No palpable masses. - EXTREMITIES: No edema. Peripheral puls es 2+. Non-tender. - NEUROLOGIC: No focal neurological defi cits. CN II-XII grossly intact. - PSYCHIATRIC: Awake, Alert and oriented x 3. Appropriate mood and affect. general weakness - SKIN: No rashes or lesions. Warm. - LYMPH: No cervical lymphadenopathy. Objective Data Vital Signs Vital Signs: Vital Signs - 24 hr 02/17/25 08:59 02/17/25 14:00 02/17/25 20:00 Temperature 97.0 F L Pulse Rate 104 H 81 72 Respiratory Rate 16 16 Blood Pressure 113/68 Pulse Oximetry 94 93 Oxygen Delivery Room Air 02/17/25 21:33 02/18/25 04:30 Temperature 99.3 F 97.2 F L Pulse Rate 72 70 Respiratory Rate 16 20 Blood Pressure 129/76 151/81 H Pulse Oximetry 93 96 Oxygen Delivery Intake/Output Intake/Output: Intake & Output 02/15/25 02/16/25 02/17/25 02/18/25 23:59 23:59 23:59 23:59 Intake Total 3050 2076.7 318 1550 Output Total 85 600 175 380 Balance 2965 1476.7 143 1170 Meds/Results Medications: Active Medications Generic Name Dose Route Start Last Admin Trade Name Freq PRN Reason Stop Dose Admin Acetaminophen 500 mg 02/16/25 09:13 Acetaminophen 500 Mg Tablet PO TID PRN Pain Acetaminophen 500 mg 02/16/25 21:00 02/17/25 21:38 Acetaminophen 500 Mg Tablet PO 500 mg HS ILA Administration Atorvastatin Calcium 40 mg 02/16/25 21:00 02/17/25 21:38 Atorvastatin 40 Mg Tablet PO 40 mg QHS IAL Administration Diphenhydramine HCl 25 mg 02/16/25 21:00 02/17/25 21:38 Diphenhydramine Hcl Cap 25 Mg Capsule PO 25 mg HS ILA Administration Hydroxychloroquine Sulfate 200 mg 02/17/25 09:00 02/17/25 08:59 Hydroxychloroquine Sulfate 200 Mg Tablet PO 200 mg DAILY ILA Administration Ceftriaxone Sodium 1 gm/ 50 mls @ 100 mls/hr 02/16/25 20:00 02/17/25 21:35 Sodium Chloride IVPB 100 mls/hr Q24H ILA Administration Lactated Ringer's 1,000 mls @ 100 mls/hr 02/15/25 20:30 02/16/25 10:39 Lr - Lactated Ringers Iv IV CONT 0 mls/hr .Q10H ILA Infusion Sodium Chloride 1,000 mls @ 75 mls/hr 02/17/25 10:55 02/18/25 05:30 Normal Saline Iv IV CONT 75 mls/hr .[id number] ILA Administration Lisinopril 40 mg 02/17/25 09:00 02/17/25 08:59 Lisinopril 20 Mg Tablet PO 40 mg DAILY ILA Administration Metoclopramide HCl 10 mg 02/16/25 18:20 02/18/25 05:31 Metoclopramide Hcl Inj 10 Mg/2 Ml Vial IV PUSH Not Given Q6HR ILA Metoprolol Succinate 25 mg 02/17/25 09:00 02/17/25 08:59 Metoprolol Succinate Ext Rel 25 Mg Tabcr PO 25 mg DAILY ILA Administration Multivitamins/Minerals 1 tab 02/16/25 11:00 02/17/25 08:59 Multivitamins /C Lutein (Centrum Silver) Tablet *Bkc PO 1 tab QAM ILA Administration Pantoprazole Sodium 40 mg 02/16/25 11:00 02/17/25 17:13 Pantoprazole 40 Mg Tablet PO 40 mg BID ILA Administration Perflutren Lipid Microsphere 0 ml 02/16/25 10:46 Perflutren Lipid Microspheres 1.5 Ml Vial Diluted To 10 Ml Total Volume IV PUSH 02/19/25 10:47 ONCE PRN adequate visualization Protocol Prednisone 5 mg 02/16/25 17:00 02/17/25 17:13 Prednisone 5 Mg Tablet PO 5 mg BID ILA Administration Tramadol HCl 100 mg 02/16/25 09:13 02/16/25 17:51 Tramadol Hcl (*Crx) 50 Mg Tablet PO 100 mg TID PRN Administration Pain Radiology Results: ITS Impressions Abdomen/Pelvis CT 02/15/25 19:25 IMPRESSION: Edematous mural thickening within the rectum, an interval change from prior. Significant mural thickening within the bladder with surrounding inflammatory change for which cystitis is suspected. Redemonstration of common bile duct dilatation to 11 mm, increased from 9 mm on the previous study. Heterogeneous enhancement of the liver, unchanged from prior. Chest X-Ray 02/16/25 12:19 Impression: Clear lungs. Stable cardiomegaly with loop recorder. Labs Labs: Laboratory Results - last 24 hr 02/17/25 08:20 WBC 7.1 RBC 4.00 L Hgb 12.4 Hct 40.3 MCV 100.8 H MCH 31.0 MCHC 30.8 L RDW 15.4 H Plt Count 135 L MPV 9.7 Immature Gran % (Auto) 0.4 Neut % (Auto) 75.1 H Lymph % (Auto) 15.8 L [place] % (Auto) 7.3 Eos % (Auto) 0.7 Baso % (Auto) 0.7 Lymph # (Auto) 1.12 [place] # (Auto) 0.5 Eos # (Auto) 0.1 Baso # (Auto) 0.1 Abs Immat Gran (auto) 0.03 Absolute Neuts (auto) 5.3 Absolute Nucleated RBC 0.000 Nucleated RBC % 0.0 Sodium 134 L Potassium 4.0 Chloride 106 Carbon Dioxide 22 Anion Gap 6 BUN 19 H Creatinine 0.77 Estim Creat Clear Calc 41 Estimated GFR > 60 Glucose 122 H Calcium 8.2 L Total Bilirubin 1.1 AST 48 H ALT 23 Alkaline Phosphatase 104 Total Protein 5.1 L Albumin 2.7 L
[2025-02-18 09:01] LABS: Hematocrit 36.7 % (37.0-47.0); Hemoglobin 11.8 g/dL (12.0-15.0); Immature Granulocyte Percent A 0.2 % (0-0.5); Lymphocytes Absolute Auto 1.13 K/mm3 (0.9-3.2); Mean Corpuscular HGB Conc 32.2 g/dl (32-36); Mean Corpuscular Hemoglobin 31.2 pg (26-34); Mean Corpuscular Volume 97.1 fl (80-100); Nucleated Red Blood Cells Absolute Auto 0.000 K/mm3 (0.0-0.012); Nucleated Red Blood Cells Perc 0.0 % (0.0-0.2); Platelet Count Result 131 k/mm3 (150-375); Red Blood Count 3.78 M/mm3 (4.2-5.4); White Blood Count 4.8 K/mm3 (4.5-10.0)
[2025-02-18 09:23] LABS: Anion Gap 5 mmol/L (4-12); Blood Urea Nitrogen 17 mg/dL (7-17); Calcium 8.0 mg/dL (8.4-10.2); Carbon Dioxide 24 mmol/L (22-30); Chloride 108 mmol/L (98-107); Estimated CRCL calculation 49 ml/min; Estimated Glomerular Filt Rate > 60; Glucose 75 mg/dL (65-110); Potassium 3.8 mmol/L (3.4-5.0); Sodium 137 mmol/L (137-145)
[2025-02-18] MEDS: MULTIVITAMINS /C LUTEIN (CENTRUM SILVER) TABLET *BKC 1 TAB PO (11:15)
[2025-02-18 11:16] VITALS: PULSE 70
[2025-02-18] MEDS: HYDROXYCHLOROQUINE SULFATE 200 MG TABLET PO (11:16)
[2025-02-18] MEDS: PANTOPRAZOLE 40 MG TABLET PO ×2 (11:16→17:16)
[2025-02-18] MEDS: METOPROLOL SUCCINATE EXT REL 25 MG TABCR PO (11:16)
--- NOTE | 2025-02-18 13:44 | PCPTNOTE ---
attempted PT eval, pt politely declined stating she just got back to bed and is tired today, will follow
[2025-02-18 14:00] VITALS: BP 112/68; PULSE 69; RESP 16; TEMP 36.4; O2SAT 96
[2025-02-18] MEDS: METOCLOPRAMIDE HCL INJ 10 MG/2 ML VIAL IV PUSH (17:21)
[2025-02-18 20:00] VITALS: PULSE 73; RESP 18; O2SAT 95
[2025-02-18 21:03] VITALS: BP 142/82; PULSE 73; RESP 18; TEMP 36.9; O2SAT 95
[2025-02-18] MEDS: ACETAMINOPHEN 500 MG TABLET PO (21:04)
[2025-02-18] MEDS: diphenhydrAMINE HCl CAP 25 MG CAPSULE PO (21:04)
[2025-02-18] MEDS: cefTRIAXone 1 GM in SODIUM CHLORIDE 0.9% IV 50 ML 100 ML IVPB (21:04)
[2025-02-18] MEDS: ATORVASTATIN 40 MG TABLET PO (21:04)
[2025-02-19 04:38] VITALS: BP 175/97; PULSE 71; RESP 16; TEMP 36.8; O2SAT 98
[2025-02-19 07:47] LABS: Hematocrit 33.8 % (37.0-47.0); Hemoglobin 10.8 g/dL (12.0-15.0); Immature Granulocyte Percent A 0.3 % (0-0.5); Lymphocytes Absolute Auto 0.94 K/mm3 (0.9-3.2); Mean Corpuscular HGB Conc 32.0 g/dl (32-36); Mean Corpuscular Hemoglobin 30.4 pg (26-34); Mean Corpuscular Volume 95.2 fl (80-100); Nucleated Red Blood Cells Absolute Auto 0.000 K/mm3 (0.0-0.012); Nucleated Red Blood Cells Perc 0.0 % (0.0-0.2); Platelet Count Result 126 k/mm3 (150-375); Red Blood Count 3.55 M/mm3 (4.2-5.4); White Blood Count 3.8 K/mm3 (4.5-10.0)
[2025-02-19 08:10] LABS: Anion Gap 5 mmol/L (4-12); Blood Urea Nitrogen 17 mg/dL (7-17); Calcium 8.2 mg/dL (8.4-10.2); Carbon Dioxide 25 mmol/L (22-30); Chloride 109 mmol/L (98-107); Estimated CRCL calculation 49 ml/min; Estimated Glomerular Filt Rate > 60; Glucose 83 mg/dL (65-110); Potassium 3.8 mmol/L (3.4-5.0); Sodium 139 mmol/L (137-145)
--- NOTE | 2025-02-19 09:28 | PM.IMPN ---
Progress Note: A&P Assessment and Plan (1) Essential (primary) hypertension: Code(s): I10 - Essential (primary) hypertension Status: Chronic (2) Urinary tract infection: Code(s): N39.0 - Urinary tract infection, site not specified Status: Acute (3) Dehydration: Code(s): E86.0 - Dehydration Status: Acute Plan UTI UA shows pyuria and hematuria CT shows cystitis Continue ceftriaxone 1 g IV daily Pending urine culture Repeat urinalysis, if hematuria persists, consult urologist for evaluation Sepsis Patient has leukocytosis, tachycardia, lactic acidosis, meeting criteria of sepsis Likely resulting from UTI Urine culture grows E coli, pending susceptibility Blood culture pending Patient received fluid resuscitation Poor intake Received normal saline 75 mL/hour Appetite improving, DC IV fluid Essential hypertension Continue lisinopril 40 mg daily p.o. metoprolol 25 mg daily p.o. --Continue History of COPD Patient had some shortness breath, also has some soft cough without phlegm--now resolved Chest x-ray showed No infiltrates, effusions or pneumothorax. Underlying fibrotic changes. patient is on room air History of esophageal dysphagia and stricture dilatation Patient denies trouble with swallowing poor appetite Likely secondary to sepsis and UTI Hx Rheumatoid arthritis Continue home prednisone 5mg BID Plaquenil 400mg daily decreased to 200mg daily, resume home dose Time Spent With Patient Time: 56 minutes Subjective Date/time seen: 02/19/25 09:28 Interval history: BP trending up, 175/97, rimproved with home meds Afebrile overnight, tachycardia resolved Urine culture grows E coli, susceptibilities pending Blood culture pending No abdominal pain, flank pain, or dysuria Discharge tomorrow after cultures resulted Review of Systems Review of Systems: ROS negative except above Exam Narrative: GENERAL: Ill-appearing, in no acute distress. Well-nourished. - EYES: EOMI. Anicteric. - HENT: moist mucous membranes. - LUNGS: coarse breath sound bilaterally - CARDIOVASCULAR: Regular rate and rhythm. No murmur. No JVD. - ABDOMEN: Soft, non-tender and non-distended. No palpable masses. - EXTREMITIES: No edema. Peripheral pulses 2+. Non-tender. - NEUROLOGIC: No focal neurological deficits. CN II-XII grossly intact. - PSYCHIATRIC: Awake, Alert and oriented x 3. Appropriate mood and affect. general weakness - SKIN: No rashes or lesions. Warm. - LYMPH: No cervical lymphadenopathy. Objective Data Vital Signs Vital Signs: Vital Signs - 24 hr 02/18/25 09:48 02/18/25 11:16 02/18/25 14:00 Temperature 97.5 F L Pulse Rate 70 69 Respiratory Rate 16 Blood Pressure 112/68 Pulse Oximetry 96 Oxygen Delivery Room Air 02/18/25 20:00 02/18/25 21:03 02/19/25 04:38 Temperature 98.4 F 98.3 F Pulse Rate 73 73 71 Respiratory Rate 18 18 16 Blood Pressure 142/82 H 175/97 H Pulse Oximetry 95 95 98 Oxygen Delivery Room Air Intake/Output Intake/Output: Intake & Output 02/16/25 02/17/25 02/18/25 02/19/25 23:59 23:59 23:59 23:59 Intake Total 2076.7 368 2453.8 550 Output Total 600 175 780 300 Balance 1476.7 193 1673.8 250 Meds/Results Medications: Active Medications Generic Name Dose Route Start Last Admin Trade Name Freq PRN Reason Stop Dose Admin Acetaminophen 500 mg 02/16/25 09:13 Acetaminophen 500 Mg Tablet PO TID PRN Pain Acetaminophen 500 mg 02/16/25 21:00 02/18/25 21:04 Acetaminophen 500 Mg Tablet PO 500 mg HS ILA Administration Atorvastatin Calcium 40 mg 02/16/25 21:00 02/18/25 21:04 Atorvastatin 40 Mg Tablet PO 40 mg QHS ILA Administration Diphenhydramine HCl 25 mg 02/16/25 21:00 02/18/25 21:04 Diphenhydramine Hcl Cap 25 Mg Capsule PO 25 mg HS ILA Administration Hydroxychloroquine Sulfate 200 mg 02/17/25 09:00 02/18/25 11:16 Hydroxychloroquine Sulfate 200 Mg Tablet PO 200 mg DAILY ILA Administration Ceftriaxone Sodium 1 gm/ 50 mls @ 100 mls/hr 02/16/25 20:00 02/18/25 21:04 Sodium Chloride IVPB 100 mls/hr Q24H ILA Administration Lactated Ringer's 1,000 mls @ 100 mls/hr 02/15/25 20:30 02/16/25 10:39 Lr - Lactated Ringers Iv IV CONT 0 mls/hr .Q10H ILA Infusion Lisinopril 40 mg 02/17/25 09:00 02/18/25 11:16 Lisinopril 20 Mg Tablet PO 40 mg DAILY ILA Administration Metoclopramide HCl 10 mg 02/16/25 18:20 02/19/25 06:21 Metoclopramide Hcl Inj 10 Mg/2 Ml Vial IV PUSH Not Given Q6HR ILA Metoprolol Succinate 25 mg 02/17/25 09:00 02/18/25 11:16 Metoprolol Succinate Ext Rel 25 Mg Tabcr PO 25 mg DAILY ILA Administration Multivitamins/Minerals 1 tab 02/16/25 11:00 02/18/25 11:15 Multivitamins /C Lutein (Centrum Silver) Tablet *Bkc PO 1 tab QAM ILA Administration Pantoprazole Sodium 40 mg 02/16/25 11:00 02/18/25 17:16 Pantoprazole 40 Mg Tablet PO 40 mg BID ILA Administration Perflutren Lipid Microsphere 0 ml 02/16/25 10:46 Perflutren Lipid Microspheres 1.5 Ml Vial Diluted To 10 Ml Total Volume IV PUSH 02/19/25 10:47 ONCE PRN adequate visualization Protocol Prednisone 5 mg 02/16/25 17:00 02/18/25 17:16 Prednisone 5 Mg Tablet PO 5 mg BID ILA Administration Tramadol HCl 100 mg 02/16/25 09:13 02/16/25 17:51 Tramadol Hcl (*Crx) 50 Mg Tablet PO 100 mg TID PRN Administration Pain Radiology Results: ITS Impressions Abdomen/Pelvis CT 02/15/25 19:25 IMPRESSION: Edematous mural thickening within the rectum, an interval change from prior. Significant mural thickening within the bladder with surrounding inflammatory change for which cystitis is suspected. Redemonstration of common bile duct dilatation to 11 mm, increased from 9 mm on the previous study. Heterogeneous enhancement of the liver, unchanged from prior. Chest X-Ray 02/16/25 12:19 Impression: Clear lungs. Stable cardiomegaly with loop recorder. Labs Labs: Laboratory Results - last 24 hr 02/19/25 07:17 WBC 3.8 L RBC 3.55 L Hgb 10.8 L Hct 33.8 L MCV 95.2 MCH 30.4 MCHC 32.0 RDW 14.7 H Plt Count 126 L MPV 10.2 Immature Gran % (Auto) 0.3 Neut % (Auto) 59.9 Lymph % (Auto) 24.5 [place] % (Auto) 9.4 H Eos % (Auto) 4.9 H Baso % (Auto) 1.0 Lymph # (Auto) 0.94 [place] # (Auto) 0.4 Eos # (Auto) 0.2 Baso # (Auto) 0.0 Abs Immat Gran (auto) 0.01 Absolute Neuts (auto) 2.3 Absolute Nucleated RBC 0.000 Nucleated RBC % 0.0 Sodium 139 Potassium 3.8 Chloride 109 H Carbon Dioxide 25 Anion Gap 5 BUN 17 Creatinine 0.62 L Estim Creat Clear Calc 49 Estimated GFR > 60 Glucose 83 Calcium 8.2 L Quality VTE Prophylaxis VTE prophylaxis: mechanical ordered Hospitalist MIPS Advance Care Plan I have confirmed that the patient's Advanced Care Plan is present, code status is documented, or surrogate decision maker is listed in patient medical record.: Yes Medication Reconciliation I have utilized all available resources to obtain, update and review the patients current medications (includes all prescriptions, OTC, herbals, cannabis, and nutritional supplements).: Yes
[2025-02-19 09:53] VITALS: PULSE 71
[2025-02-19] MEDS: METOPROLOL SUCCINATE EXT REL 25 MG TABCR PO (09:53)
[2025-02-19] MEDS: PANTOPRAZOLE 40 MG TABLET PO ×2 (09:53→19:00)
[2025-02-19] MEDS: HYDROXYCHLOROQUINE SULFATE 200 MG TABLET PO (09:53)
[2025-02-19] MEDS: MULTIVITAMINS /C LUTEIN (CENTRUM SILVER) TABLET *BKC 1 TAB PO (09:53)
[2025-02-19 14:00] VITALS: BP 148/92; PULSE 77; RESP 16; TEMP 36.6; O2SAT 94
[2025-02-19 20:00] VITALS: PULSE 70; RESP 16; O2SAT 96
[2025-02-19 20:02] VITALS: O2SAT 94
[2025-02-19] MEDS: cefTRIAXone 1 GM in SODIUM CHLORIDE 0.9% IV 50 ML 100 ML IVPB (20:26)
[2025-02-19] MEDS: ACETAMINOPHEN 500 MG TABLET PO (20:26)
[2025-02-19] MEDS: ATORVASTATIN 40 MG TABLET PO (20:26)
[2025-02-19] MEDS: diphenhydrAMINE HCl CAP 25 MG CAPSULE PO (20:26)
[2025-02-19 21:32] VITALS: BP 122/41; PULSE 70; RESP 16; TEMP 36.7; O2SAT 96
[2025-02-20] VITALS (7 sets, daily range): BP systolic 137–175; BP diastolic 77–87; PULSE 60–80; RESP 13–20; TEMP 36.3–36.4; O2SAT 93–99
[2025-02-20 08:04] LABS: Hematocrit 35.7 % (37.0-47.0); Hemoglobin 11.3 g/dL (12.0-15.0); Immature Granulocyte Percent A 0.0 % (0-0.5); Lymphocytes Absolute Auto 1.09 K/mm3 (0.9-3.2); Mean Corpuscular HGB Conc 31.7 g/dl (32-36); Mean Corpuscular Hemoglobin 30.6 pg (26-34); Mean Corpuscular Volume 96.7 fl (80-100); Nucleated Red Blood Cells Absolute Auto 0.000 K/mm3 (0.0-0.012); Nucleated Red Blood Cells Perc 0.0 % (0.0-0.2); Platelet Count Result 115 k/mm3 (150-375); Red Blood Count 3.69 M/mm3 (4.2-5.4); White Blood Count 3.7 K/mm3 (4.5-10.0)
[2025-02-20 08:18] LABS: Anion Gap 3 mmol/L (4-12); Blood Urea Nitrogen 15 mg/dL (7-17); Calcium 8.6 mg/dL (8.4-10.2); Carbon Dioxide 28 mmol/L (22-30); Chloride 108 mmol/L (98-107); Estimated CRCL calculation 49 ml/min; Estimated Glomerular Filt Rate > 60; Glucose 76 mg/dL (65-110); Potassium 4.0 mmol/L (3.4-5.0); Sodium 139 mmol/L (137-145)
[2025-02-20] MEDS: METOPROLOL SUCCINATE EXT REL 25 MG TABCR PO (08:40)
[2025-02-20] MEDS: PANTOPRAZOLE 40 MG TABLET PO ×2 (08:40→16:29)
[2025-02-20] MEDS: HYDROXYCHLOROQUINE SULFATE 200 MG TABLET PO (08:40)
[2025-02-20] MEDS: MULTIVITAMINS /C LUTEIN (CENTRUM SILVER) TABLET *BKC 1 TAB PO (08:40)
[2025-02-20] MEDS: METOCLOPRAMIDE HCL INJ 10 MG/2 ML VIAL IV PUSH ×2 (12:23→18:24)
--- NOTE | 2025-02-20 20:05 | P.PNIM_ITS ---
Progress Note: A&P Assessment and Plan (1) Essential (primary) hypertension: Code(s): I10 - Essential (primary) hypertension Status: Chronic (2) Urinary tract infection: Code(s): N39.0 - Urinary tract infection, site not specified Status: Acute (3) Dehydration: Code(s): E86.0 - Dehydration Status: Acute Plan UTI UA shows pyuria and hematuria. Repeat urinalysis negative for blood 02/15 CT shows cystitis Continue ceftriaxone 1 g IV daily Pending urine culture--can discharge after results. Sepsis Patient has leukocytosis, tachycardia, lactic acidosis, meeting criteria of sepsis Likely resulting from UTI Urine culture grows E coli, pending susceptibility Blood culture pending Patient received fluid resuscitation Poor intake Received normal saline 75 mL/hour Appetite improving, DC IV fluid Essential hypertension Continue lisinopril 40 mg daily p.o. metoprolol 25 mg daily p.o. History of COPD Patient had some shortness breath, also has some soft cough without phlegm--now resolved Chest x-ray showed No infiltrates, effusions or pneumothorax. Underlying fibrotic changes. patient is on room air History of esophageal dysphagia and stricture dilatation Patient denies trouble with swallowing poor appetite Likely secondary to sepsis and UTI Hx Rheumatoid arthritis Continue home prednisone 5mg BID Plaquenil 200mg daily, continue Time Spent With Patient Time: 59 minutes Subjective Date/time seen: 02/20/25 14:40 Interval history: BP trending up, 175/97 this morning, improved this afternoon with home meds No abdominal pain, flank pain, or dysuria Afebrile overnight Urine culture grows E coli, susceptibilities pending Blood culture pending 02/15 no growth to date Discharge after cultures resulted, still pending today Review of Systems Review of Systems: ROS negative except above Exam Narrative: GENERAL: Ill-appearing, in no acute distress. Well-nourished. - EYES: EOMI. Anicteric. - HENT: moist mucous membranes. - LUNGS: coarse breath sound bilaterally - CARDIOVASCULAR: Regular rate and rhyth m. No murmur. No JVD. - ABDOMEN: Soft, non-tender and non-dist ended. No palpable masses. - EXTREMITIES: No edema. Peripheral puls es 2+. Non-tender. - NEUROLOGIC: No focal neurological defi cits. CN II-XII grossly intact. - PSYCHIATRIC: Awake, Alert and oriented x 3. Appropriate mood and affect. general weakness - SKIN: No rashes or lesions. Warm. - LYMPH: No cervical lymphadenopathy. Objective Data Vital Signs Vital Signs: Vital Signs - 24 hr 02/19/25 21:32 02/20/25 06:00 02/20/25 08:00 Temperature 98.0 F 97.3 F L Pulse Rate 70 60 Respiratory Rate 16 13 Blood Pressure 122/41 L 175/79 H Pulse Oximetry 96 99 99 Oxygen Delivery Room Air Fraction of Inspired Oxygen 02/20/25 08:40 02/20/25 13:44 02/20/25 14:00 Temperature 97.6 F Pulse Rate 80 77 Respiratory Rate 16 Blood Pressure 137/87 Pulse Oximetry 96 Oxygen Delivery Room Air Fraction of Inspired Oxygen 02/20/25 19:52 Temperature Pulse Rate 73 Respiratory Rate 20 Blood Pressure Pulse Oximetry 93 Oxygen Delivery Room Air Fraction of Inspired Oxygen 21 Intake/Output Intake/Output: Intake & Output 02/17/25 02/18/25 02/19/25 02/20/25 23:59 23:59 23:59 23:59 Intake Total 368 2503.8 1080 820 Output Total 175 780 300 700 Balance 193 1723.8 780 120 Meds/Results Medications: Active Medications Generic Name Dose Route Start Last Admin Trade Name Freq PRN Reason Stop Dose Admin Acetaminophen 500 mg 02/16/25 09:13 Acetaminophen 500 Mg Tablet PO TID PRN Pain Acetaminophen 500 mg 02/16/25 21:00 02/19/25 20:26 Acetaminophen 500 Mg Tablet PO 500 mg HS ILA Administration Atorvastatin Calcium 40 mg 02/16/25 21:00 02/19/25 20:26 Atorvastatin 40 Mg Tablet PO 40 mg QHS ILA Administration Diphenhydramine HCl 25 mg 02/16/25 21:00 02/19/25 20:26 Diphenhydramine Hcl Cap 25 Mg Capsule PO 25 mg HS ILA Administration Hydroxychloroquine Sulfate 200 mg 02/17/25 09:00 02/20/25 08:40 Hydroxychloroquine Sulfate 200 Mg Tablet PO 200 mg DAILY ILA Administration Ceftriaxone Sodium 1 gm/ 50 mls @ 100 mls/hr 02/16/25 20:00 02/19/25 20:56 Sodium Chloride IVPB Infused Q24H ILA Infusion Lactated Ringer's 1,000 mls @ 100 mls/hr 02/15/25 20:30 02/16/25 10:39 Lr - Lactated Ringers Iv IV CONT 0 mls/hr .Q10H ILA Infusion Lisinopril 40 mg 02/17/25 09:00 02/20/25 08:40 Lisinopril 20 Mg Tablet PO 40 mg DAILY ILA Administration Metoclopramide HCl 10 mg 02/16/25 18:20 02/20/25 18:24 Metoclopramide Hcl Inj 10 Mg/2 Ml Vial IV PUSH 10 mg Q6HR ILA Administration Metoprolol Succinate 25 mg 02/17/25 09:00 02/20/25 08:40 Metoprolol Succinate Ext Rel 25 Mg Tabcr PO 25 mg DAILY ILA Administration Multivitamins/Minerals 1 tab 02/16/25 11:00 02/20/25 08:40 Multivitamins /C Lutein (Centrum Silver) Tablet *Bkc PO 1 tab QAM ILA Administration Pantoprazole Sodium 40 mg 02/16/25 11:00 02/20/25 16:29 Pantoprazole 40 Mg Tablet PO 40 mg BID ILA Administration Prednisone 5 mg 02/16/25 17:00 02/20/25 16:29 Prednisone 5 Mg Tablet PO 5 mg BID ILA Administration Tramadol HCl 100 mg 02/16/25 09:13 02/16/25 17:51 Tramadol Hcl (*Crx) 50 Mg Tablet PO 100 mg TID PRN Administration Pain Radiology Results: ITS Impressions Abdomen/Pelvis CT 02/15/25 19:25 IMPRESSION: Edematous mural thickening within the rectum, an interval change from prior. Significant mural thickening within the bladder with surrounding inflammatory change for which cystitis is suspected. Redemonstration of common bile duct dilatation to 11 mm, increased from 9 mm on the previous study. Heterogeneous enhancement of the liver, unchanged from prior. Chest X-Ray 02/16/25 12:19 Impression: Clear lungs. Stable cardiomegaly with loop recorder. Labs Labs: Laboratory Results - last 24 hr 02/20/25 07:59 WBC 3.7 L RBC 3.69 L Hgb 11.3 L Hct 35.7 L MCV 96.7 MCH 30.6 MCHC 31.7 L RDW 15.0 H Plt Count 115 L MPV 9.5 Immature Gran % (Auto) 0.0 Neut % (Auto) 57.0 Lymph % (Auto) 29.7 [place] % (Auto) 9.8 H Eos % (Auto) 2.7 Baso % (Auto) 0.8 Lymph # (Auto) 1.09 [place] # (Auto) 0.4 Eos # (Auto) 0.1 Baso # (Auto) 0.0 Abs Immat Gran (auto) 0.00 Absolute Neuts (auto) 2.1 Absolute Nucleated RBC 0.000 Nucleated RBC % 0.0 Sodium 139 Potassium 4.0 Chloride 108 H Carbon Dioxide 28 Anion Gap 3 L BUN 15 Creatinine 0.63 L Estim Creat Clear Calc 49 Estimated GFR > 60 Glucose 76 Calcium 8.6 Quality VTE Prophylaxis VTE prophylaxis: mechanical ordered Hospitalist MIPS Advance Care Plan I have confirmed that the patient's Advanced Care Plan is present, code status is documented, or surrogate decision maker is listed in patient medical record.: Yes Medication Reconciliation I have utilized all available resources to obtain, update and review the patients current medications (includes all prescriptions, OTC, herbals, cannabis, and nutritional supplements).: Yes
[2025-02-20] MEDS: cefTRIAXone 1 GM in SODIUM CHLORIDE 0.9% IV 50 ML 100 ML IVPB (21:33)
[2025-02-20] MEDS: ATORVASTATIN 40 MG TABLET PO (21:34)
[2025-02-20] MEDS: ACETAMINOPHEN 500 MG TABLET PO (21:34)
[2025-02-20] MEDS: diphenhydrAMINE HCl CAP 25 MG CAPSULE PO (21:35)
[2025-02-21] MEDS: METOCLOPRAMIDE HCL INJ 10 MG/2 ML VIAL IV PUSH (05:56)
[2025-02-21 06:00] VITALS: BP 179/84; PULSE 69; RESP 18; TEMP 36.6; O2SAT 97
[2025-02-21] MEDS: HYDROXYCHLOROQUINE SULFATE 200 MG TABLET PO (07:55)
[2025-02-21 07:56] VITALS: PULSE 82
[2025-02-21] MEDS: PANTOPRAZOLE 40 MG TABLET PO ×2 (07:56→16:49)
[2025-02-21] MEDS: METOPROLOL SUCCINATE EXT REL 25 MG TABCR PO (07:56)
[2025-02-21 08:00] VITALS: O2SAT 97
--- NOTE | 2025-02-21 09:03 | P.PNIM_ITS ---
Progress Note: A&P Assessment and Plan (1) Sepsis: Code(s): A41.9 - Sepsis, unspecified organism Status: Resolved Assessment and Plan: Meets SIRS criteria: WBC, lactic acidosis, tachycardia - lactic acid: 2.7 >> 1.3 - sepsis fluids given - suspected source: UTI - blood cultures drawn on 02/15: NGTD - UA: cloudy appearance with 1+ protein, 1+ ketones, postive nitrates, 3+ leukocytes, 51-100 RBC, >100 WBC, 4+ bacteria - UC obtained on 02/15: ecoli sensitivity pending - CXR: clear lungs - Abdomen/pelvis CT: Significant mural thickening within the bladder with surrounding inflammatory change for which cystitis is suspected. Redemonstration of common bile duct dilatation to 11 mm, increased from 9 mm on the previous study. LFTs WNL. (2) Urinary tract infection: Code(s): N39.0 - Urinary tract infection, site not specified Status: Acute Assessment and Plan: - UA: cloudy appearance with 1+ protein, 1+ ketones, positive nitrates, 3+ leukocytes, 51-100 RBC, >100 WBC, 4+ bacteria - UC obtained on 02/15: ecoli with ESBL - previous micro reviewed ESBL 05/09/21 - started on Rocephin 02/16, transitioned to meropenem 02/21 (3) Essential (primary) hypertension: Code(s): I10 - Essential (primary) hypertension Status: Chronic Assessment and Plan: Chronic, continue home medications - lisinopril 40 mg daily - metoprolol 25 mg daily - continue to monitor (4) COPD (chronic obstructive pulmonary disease): Qualifiers: COPD type: unspecified COPD Qualified Code(s): J44.9 - Chronic obstructive pulmonary disease, unspecified Code(s): J44.9 - Chronic obstructive pulmonary disease, unspecified Status: Chronic Assessment and Plan: Does not appear in acute exacerbation Chest x-ray showed No infiltrates, effusions or pneumothorax. Underlying fibrotic changes. Patient is on room air Time Spent With Patient Time with patient: 25 - 35 minutes Subjective Date/time seen: 02/21/25 09:03 Interval history: 84-year-old female with past medical history of hypertension, afib, teri, stroke, htn, and COPD who presents to the hospital for nausea vomiting and abdomen pain. Patient is pleasant lying comfortably in bed. She has no complaints denying chest pain, shortness of breath, palpitations, nausea/vomiting, abdominal pain. She continues to work with therapy and states she is improving however her distance of ambulation remains decreased. Review of Systems Review of Systems: All systems reviewed & are unremarkable except as noted in HPI and below Exam Narrative: AF HR 82 RR 18 SpO2 97 BP 130/76 General: female in no acute respiratory distress who is nontoxic appearing, lying semi recumbent in bed. HEENT: Normocephalic. Atraumatic. Extraocular movement intact. Sclera clear and anicteric. No facial asymmetry. Chest: Lungs are clear to auscultation bilaterally. No wheezes or crackles. CV: Heart was regular rate and rhythm. Abd: Abdomen was soft. Nontender. Nondistended. Positive bowel sounds. Ext: No clubbing, cyanosis, or edema. DP pulses bilaterally. Neuro: Patient is alert and oriented x3. Speech is clear. Objective Data Vital Signs Vital Signs: Vital Signs - 24 hr 02/20/25 13:44 02/20/25 14:00 02/20/25 19:52 Temperature 97.6 F Pulse Rate 77 73 Respiratory Rate 16 20 Blood Pressure 137/87 Pulse Oximetry 96 93 Oxygen Delivery Room Air Room Air Fraction of Inspired Oxygen 02/20/25 20:00 02/20/25 22:00 02/21/25 06:00 Temperature 97.3 F L 97.8 F Pulse Rate 76 76 69 Respiratory Rate 18 18 18 Blood Pressure 140/77 179/84 H Pulse Oximetry 96 96 97 Oxygen Delivery Room Air Fraction of Inspired Oxygen 02/21/25 07:56 02/21/25 08:00 Temperature Pulse Rate 82 Respiratory Rate Blood Pressure Pulse Oximetry 97 Oxygen Delivery Room Air Fraction of Inspired Oxygen Intake/Output Intake/Output: Intake & Output 02/18/25 02/19/25 02/20/25 02/21/25 23:59 23:59 23:59 23:59 Intake Total 2503.8 1080 820 300 Output Total 780 300 700 400 Balance 1723.8 780 120 -100 Meds/Results Medications: Active Medications Generic Name Dose Route Start Last Admin Trade Name Freq PRN Reason Stop Dose Admin Acetaminophen 500 mg 02/16/25 09:13 Acetaminophen 500 Mg Tablet PO TID PRN Pain Acetaminophen 500 mg 02/16/25 21:00 02/20/25 21:34 Acetaminophen 500 Mg Tablet PO 500 mg HS ILA Administration Atorvastatin Calcium 40 mg 02/16/25 21:00 02/20/25 21:34 Atorvastatin 40 Mg Tablet PO 40 mg QHS ILA Administration Diphenhydramine HCl 25 mg 02/16/25 21:00 02/20/25 21:35 Diphenhydramine Hcl Cap 25 Mg Capsule PO 25 mg HS ILA Administration Hydroxychloroquine Sulfate 200 mg 02/17/25 09:00 02/21/25 07:55 Hydroxychloroquine Sulfate 200 Mg Tablet PO 200 mg DAILY ILA Administration Ceftriaxone Sodium 1 gm/ 50 mls @ 100 mls/hr 02/16/25 20:00 02/20/25 21:33 Sodium Chloride IVPB 100 mls/hr Q24H ILA Administration Lactated Ringer's 1,000 mls @ 100 mls/hr 02/15/25 20:30 02/16/25 10:39 Lr - Lactated Ringers Iv IV CONT 0 mls/hr .Q10H ILA Infusion Lisinopril 40 mg 02/17/25 09:00 02/21/25 07:56 Lisinopril 20 Mg Tablet PO 40 mg DAILY ILA Administration Metoclopramide HCl 10 mg 02/16/25 18:20 02/21/25 05:56 Metoclopramide Hcl Inj 10 Mg/2 Ml Vial IV PUSH 10 mg Q6HR ILA Administration Metoprolol Succinate 25 mg 02/17/25 09:00 02/21/25 07:56 Metoprolol Succinate Ext Rel 25 Mg Tabcr PO 25 mg DAILY ILA Administration Multivitamins/Minerals 1 tab 02/16/25 11:00 02/21/25 07:53 Multivitamins /C Lutein (Centrum Silver) Tablet *Bkc PO Not Given QAM [facility] Pantoprazole Sodium 40 mg 02/16/25 11:00 02/21/25 07:56 Pantoprazole 40 Mg Tablet PO 40 mg BID ILA Administration Prednisone 5 mg 02/16/25 17:00 02/21/25 07:56 Prednisone 5 Mg Tablet PO 5 mg BID ILA Administration Tramadol HCl 100 mg 02/16/25 09:13 02/16/25 17:51 Tramadol Hcl (*Crx) 50 Mg Tablet PO 100 mg TID PRN Administration Pain Radiology Results: ITS Impressions Abdomen/Pelvis CT 02/15/25 19:25 IMPRESSION: Edematous mural thickening within the rectum, an interval change from prior. Significant mural thickening within the bladder with surrounding inflammatory change for which cystitis is suspected. Redemonstration of common bile duct dilatation to 11 mm, increased from 9 mm on the previous study. Heterogeneous enhancement of the liver, unchanged from prior. Chest X-Ray 02/16/25 12:19 Impression: Clear lungs. Stable cardiomegaly with loop recorder. Quality VTE Prophylaxis VTE prophylaxis: mechanical ordered
[2025-02-21 14:00] VITALS: BP 130/76; PULSE 73; RESP 18; TEMP 36.2; O2SAT 97
[2025-02-21 20:00] VITALS: PULSE 86; RESP 18; O2SAT 93
[2025-02-21 21:41] VITALS: BP 148/93; PULSE 86; RESP 18; TEMP 36.8; O2SAT 93
[2025-02-21] MEDS: ACETAMINOPHEN 500 MG TABLET PO (22:14)
[2025-02-21] MEDS: diphenhydrAMINE HCl CAP 25 MG CAPSULE PO (22:14)
[2025-02-21] MEDS: ATORVASTATIN 40 MG TABLET PO (22:14)
[2025-02-21] MEDS: MEROPENEM 1 GM in SODIUM CHLORIDE 0.9% IV 100 ML 200 ML IVPB (22:15)
[2025-02-22 05:07] VITALS: BP 188/91; PULSE 69; RESP 17; TEMP 36.1; O2SAT 97
[2025-02-22] MEDS: MEROPENEM 1 GM in SODIUM CHLORIDE 0.9% IV 100 ML 200 ML IVPB ×3 (06:04→22:00)
--- NOTE | 2025-02-22 07:32 | P.PNIM_ITS ---
Progress Note: A&P Assessment and Plan (1) Sepsis: Code(s): A41.9 - Sepsis, unspecified organism Status: Resolved Assessment and Plan: Meets SIRS criteria: WBC, lactic acidosis, tachycardia - lactic acid: 2.7 >> 1.3 - sepsis fluids given - suspected source: UTI - blood cultures drawn on 02/15: NGTD - UA: cloudy appearance with 1+ protein, 1+ ketones, postive nitrates, 3+ leukocytes, 51-100 RBC, >100 WBC, 4+ bacteria - UC obtained on 02/15: ecoli with ESBL resistance see plan below - CXR: clear lungs - Abdomen/pelvis CT: Significant mural thickening within the bladder with surrounding inflammatory change for which cystitis is suspected. Redemonstration of common bile duct dilatation to 11 mm, increased from 9 mm on the previous study. LFTs WNL. Afebrile. Remains hemodynamically stable. (2) Urinary tract infection: Code(s): N39.0 - Urinary tract infection, site not specified Status: Acute Assessment and Plan: - UA: cloudy appearance with 1+ protein, 1+ ketones, positive nitrates, 3+ leukocytes, 51-100 RBC, >100 WBC, 4+ bacteria - UC obtained on 02/15: ecoli with ESBL - previous micro reviewed ESBL 05/09/21 - started on Rocephin 02/16, transitioned to meropenem 02/21 - mid line ordered for long-term IV antibiotics, care coordination aware and following for placement (3) Essential (primary) hypertension: Code(s): I10 - Essential (primary) hypertension Status: Chronic Assessment and Plan: Chronic, continue home medications - lisinopril 40 mg daily - metoprolol 25 mg daily - continue to monitor Patient continues to be hypertensive into the 170s to 180s systolic on her home regimen. She is on the highest dose of lisinopril and given the heart rate will intermittently drop into the lower 60s do not want increase her metoprolol at this time. Thus will trial patient on a low-dose of amlodipine 2.5 mg daily. - BP improved, currently 128/82 - continue to monitor (4) COPD (chronic obstructive pulmonary disease): Qualifiers: COPD type: unspecified COPD Qualified Code(s): J44.9 - Chronic obstructive pulmonary disease, unspecified Code(s): J44.9 - Chronic obstructive pulmonary disease, unspecified Status: Chronic Assessment and Plan: Does not appear in acute exacerbation Chest x-ray showed No infiltrates, effusions or pneumothorax. Underlying fibrotic changes. Patient is on room air Time Spent With Patient Time with patient: 25 - 35 minutes Subjective Date/time seen: 02/22/25 07:32 Interval history: 84-year-old female with past medical history of hypertension, afib, teri, stroke, htn, and COPD who presents to the hospital for nausea vomiting and abdomen pain. Patient is pleasant lying comfortably in bed. She endorses increased trickling urination feeling as though she is unable to fully void but has no other urinary tract like symptoms including dysuria or burning sensation. She continues to have elevated blood pressures, patient started on amlodipine at a low dose and continues her home medications. She has no other complaints denying chest pain, shortness a breath, palpitations, nausea/vomiting, abdominal pain. Review of Systems Review of Systems: All systems reviewed & are unremarkable except as noted in HPI and below Exam Narrative: AF HR 77 RR 16 SPO2 96 BP 128/82 General: female in no acute respiratory distress who is nontoxic appearing, lying semi recumbent in bed. HEENT: Normocephalic. Atraumatic. Extraocular movement intact. Sclera clear and anicteric. No facial asymmetry. Chest: Lungs are coarse to the bases to auscultation bilaterally. No wheezes or crackles. CV: Heart was regular rate and rhythm. Abd: Abdomen was soft. Nontender. Nondistended. Positive bowel sounds. Ext: No clubbing, cyanosis, or edema. DP pulses bilaterally. Neuro: Patient is alert and oriented x3. Speech is clear. Objective Data Vital Signs Vital Signs: Vital Signs - 24 hr 02/21/25 07:56 02/21/25 08:00 02/21/25 14:00 Temperature 97.1 F L Pulse Rate 82 73 Respiratory Rate 18 Blood Pressure 130/76 Pulse Oximetry 97 97 Oxygen Delivery Room Air Fraction of Inspired Oxygen 02/21/25 20:00 02/21/25 21:41 02/22/25 05:07 Temperature 98.3 F 96.9 F L Pulse Rate 86 86 69 Respiratory Rate 18 18 17 Blood Pressure 148/93 H 188/91 H Pulse Oximetry 93 93 97 Oxygen Delivery Room Air Fraction of Inspired Oxygen 21 Intake/Output Intake/Output: Intake & Output 02/19/25 02/20/25 02/21/25 02/22/25 23:59 23:59 23:59 23:59 Intake Total 8917 585 4092 350 Output Total 300 700 900 400 Balance 780 120 860 -50 Meds/Results Medications: Active Medications Generic Name Dose Route Start Last Admin Trade Name Freq PRN Reason Stop Dose Admin Acetaminophen 500 mg 02/16/25 09:13 Acetaminophen 500 Mg Tablet PO TID PRN Pain Acetaminophen 500 mg 02/16/25 21:00 02/21/25 22:14 Acetaminophen 500 Mg Tablet PO 500 mg HS ILA Administration Atorvastatin Calcium 40 mg 02/16/25 21:00 02/21/25 22:14 Atorvastatin 40 Mg Tablet PO 40 mg QHS ILA Administration Diphenhydramine HCl 25 mg 02/16/25 21:00 02/21/25 22:14 Diphenhydramine Hcl Cap 25 Mg Capsule PO 25 mg HS ILA Administration Hydroxychloroquine Sulfate 200 mg 02/17/25 09:00 02/21/25 07:55 Hydroxychloroquine Sulfate 200 Mg Tablet PO 200 mg DAILY ILA Administration Lactated Ringer's 1,000 mls @ 100 mls/hr 02/15/25 20:30 02/16/25 10:39 Lr - Lactated Ringers Iv IV CONT 0 mls/hr .Q10H ILA Infusion Meropenem 1 gm/ Sodium 100 mls @ 200 mls/hr 02/21/25 22:00 02/22/25 06:04 Chloride IVPB 200 mls/hr Q8HR ILA Administration Lisinopril 40 mg 02/17/25 09:00 02/21/25 07:56 Lisinopril 20 Mg Tablet PO 40 mg DAILY ILA Administration Metoclopramide HCl 10 mg 02/21/25 15:16 Metoclopramide Hcl Inj 10 Mg/2 Ml Vial IV PUSH Q6HR PRN Nausea Metoprolol Succinate 25 mg 02/17/25 09:00 02/21/25 07:56 Metoprolol Succinate Ext Rel 25 Mg Tabcr PO 25 mg DAILY ILA Administration Multivitamins/Minerals 1 tab 02/16/25 11:00 02/21/25 07:53 Multivitamins /C Lutein (Centrum Silver) Tablet *Bkc PO Not Given QAM ILA Pantoprazole Sodium 40 mg 07/09/25 11:00 02/21/25 16:49 Pantoprazole 40 Mg Tablet PO 40 mg BID ILA Administration Prednisone 5 mg 02/16/25 17:00 02/21/25 16:49 Prednisone 5 Mg Tablet PO 5 mg BID ILA Administration Tramadol HCl 100 mg 02/16/25 09:13 02/16/25 17:51 Tramadol Hcl (*Crx) 50 Mg Tablet PO 100 mg TID PRN Administration Pain Radiology Results: ITS Impressions Abdomen/Pelvis CT 02/15/25 19:25 IMPRESSION: Edematous mural thickening within the rectum, an interval change from prior. Significant mural thickening within the bladder with surrounding inflammatory change for which cystitis is suspected. Redemonstration of common bile duct dilatation to 11 mm, increased from 9 mm on the previous study. Heterogeneous enhancement of the liver, unchanged from prior. Chest X-Ray 02/16/25 12:19 Impression: Clear lungs. Stable cardiomegaly with loop recorder. Quality VTE Prophylaxis VTE prophylaxis: mechanical ordered
[2025-02-22 08:45] VITALS: PULSE 69
[2025-02-22] MEDS: METOPROLOL SUCCINATE EXT REL 25 MG TABCR PO (08:45)
[2025-02-22] MEDS: MULTIVITAMINS /C LUTEIN (CENTRUM SILVER) TABLET *BKC 1 TAB PO (08:45)
[2025-02-22] MEDS: HYDROXYCHLOROQUINE SULFATE 200 MG TABLET PO (08:46)
[2025-02-22] MEDS: PANTOPRAZOLE 40 MG TABLET PO ×2 (08:46→17:19)
[2025-02-22 11:21] VITALS: BMI 30.2
[2025-02-22 13:15] VITALS: BP 128/82; PULSE 77; RESP 16; TEMP 36; O2SAT 96
[2025-02-22] MEDS: LIDOCAINE 1% LOCAL INJ 2 ML AMPUL 5 ML INFILTRATE (13:55)
[2025-02-22 20:00] VITALS: PULSE 87; RESP 28; O2SAT 94
[2025-02-22 21:00] VITALS: PULSE 87; RESP 16; O2SAT 94
[2025-02-22 21:16] VITALS: BP 113/70; PULSE 87; RESP 28; TEMP 36.7; O2SAT 94
[2025-02-22] MEDS: diphenhydrAMINE HCl CAP 25 MG CAPSULE PO (21:59)
[2025-02-22] MEDS: ACETAMINOPHEN 500 MG TABLET PO (22:00)
[2025-02-22] MEDS: ATORVASTATIN 40 MG TABLET PO (22:00)
[2025-02-22] MEDS: SALINE LOCK FLUSH 10 ML IV PUSH (22:01)
[2025-02-23] MEDS: SALINE LOCK FLUSH 10 ML IV PUSH ×3 (05:37→22:10)
[2025-02-23] MEDS: MEROPENEM 1 GM in SODIUM CHLORIDE 0.9% IV 100 ML 200 ML IVPB (05:37)
[2025-02-23 06:00] VITALS: BP 156/88; PULSE 70; RESP 28; TEMP 36.7; O2SAT 93
[2025-02-23 09:14] VITALS: PULSE 70
[2025-02-23] MEDS: METOPROLOL SUCCINATE EXT REL 25 MG TABCR PO (09:14)
[2025-02-23] MEDS: MULTIVITAMINS /C LUTEIN (CENTRUM SILVER) TABLET *BKC 1 TAB PO (09:14)
[2025-02-23] MEDS: HYDROXYCHLOROQUINE SULFATE 200 MG TABLET PO (09:14)
[2025-02-23] MEDS: PANTOPRAZOLE 40 MG TABLET PO ×2 (09:15→16:10)
--- NOTE | 2025-02-23 11:17 | PM.IMPN ---
Progress Note: A&P Assessment and Plan (1) Sepsis: Code(s): A41.9 - Sepsis, unspecified organism Status: Resolved Assessment and Plan: Meets SIRS criteria: WBC, lactic acidosis, tachycardia - lactic acid: 2.7 >> 1.3 - sepsis fluids given - suspected source: UTI - blood cultures drawn on 02/15: NGTD - UA: cloudy appearance with 1+ protein, 1+ ketones, postive nitrates, 3+ leukocytes, 51-100 RBC, >100 WBC, 4+ bacteria - UC obtained on 02/15: ecoli with ESBL resistance see plan below - CXR: clear lungs - Abdomen/pelvis CT: Significant mural thickening within the bladder with surrounding inflammatory change for which cystitis is suspected. Redemonstration of common bile duct dilatation to 11 mm, increased from 9 mm on the previous study. LFTs WNL. Afebrile. Remains hemodynamically stable. (2) Urinary tract infection: Code(s): N39.0 - Urinary tract infection, site not specified Status: Acute Assessment and Plan: - UA: cloudy appearance with 1+ protein, 1+ ketones, positive nitrates, 3+ leukocytes, 51-100 RBC, >100 WBC, 4+ bacteria - UC obtained on 02/15: ecoli with ESBL - previous micro reviewed ESBL 05/09/21 - started on Rocephin 02/16, transitioned to meropenem 02/21 - mid line ordered for senior living IV antibiotics, care coordination aware and following for placement - antibiotics changed to ertapenem daily- 4 more doses-last dose 02/27 (3) Essential (primary) hypertension: Code(s): I10 - Essential (primary) hypertension Status: Chronic Assessment and Plan: Chronic, continue home medications - lisinopril 40 mg daily - metoprolol 25 mg daily - continue to monitor Patient continues to be hypertensive into the 170s to 180s systolic on her home regimen. She is on the highest dose of lisinopril and given the heart rate will intermittently drop into the lower 60s do not want increase her metoprolol at this time. Thus will trial patient on a low-dose of amlodipine 2.5 mg daily. - BP improved, currently 128/82 - continue to monitor (4) COPD (chronic obstructive pulmonary disease): Qualifiers: COPD type: unspecified COPD Qualified Code(s): J44.9 - Chronic obstructive pulmonary disease, unspecified Code(s): J44.9 - Chronic obstructive pulmonary disease, unspecified Status: Chronic Assessment and Plan: Does not appear in acute exacerbation Chest x-ray showed No infiltrates, effusions or pneumothorax. Underlying fibrotic changes. Patient is on room air Time Spent With Patient Time with patient: 25 - 35 minutes Subjective Date/time seen: 02/23/25 11:17 Interval history: 84-year-old female with past medical history of hypertension, afib, teri, stroke, htn, and COPD who presents to the hospital for nausea vomiting and abdomen pain. Pt is seen and examined. She reports that she only had been ambulating to the chair and back and cannot recall working much with PT/OT. She has weakness to rt leg-due to surgery to rt knee that had been affecting her mobility. Review of Systems Review of Systems: ROS negative except above All systems reviewed & are unremarkable except as noted in HPI and below Exam Narrative: General: female in no acute respiratory distress who is nontoxic appearing, lying in bed HEENT: Normocephalic. Atraumatic. Extraocular movement intact. Sclera clear and anicteric. No facial asymmetry. Chest: Lungs are coarse to the bases to auscultation bilaterally. No wheezes or crackles. CV: Heart was regular rate and rhythm. Abd: Abdomen was soft. Nontender. Nondistended. Positive bowel sounds. Ext: No clubbing, cyanosis, or edema. DP pulses bilaterally. Neuro: Patient is alert and oriented x3. Speech is clear. Const: General: comfortable Objective Data Vital Signs Vital Signs: Vital Signs - 24 hr 02/22/25 13:15 02/22/25 20:00 02/22/25 21:00 Temperature 96.8 F L Pulse Rate 77 87 87 Respiratory Rate 16 28 H 16 Blood Pressure 128/82 Pulse Oximetry 96 94 94 Oxygen Delivery Room Air Room Air Fraction of Inspired Oxygen 21 02/22/25 21:16 02/23/25 06:00 02/23/25 08:00 Temperature 98.1 F 98.1 F Pulse Rate 87 70 Respiratory Rate 28 H 28 H Blood Pressure 113/70 156/88 H Pulse Oximetry 94 93 Oxygen Delivery Room Air Fraction of Inspired Oxygen 02/23/25 09:14 Temperature Pulse Rate 70 Respiratory Rate Blood Pressure Pulse Oximetry Oxygen Delivery Fraction of Inspired Oxygen Intake/Output Intake/Output: Intake & Output 02/20/25 02/21/25 02/22/25 02/23/25 23:59 23:59 23:59 23:59 Intake Total 820 1760 1330 150 Output Total 002 662 5436 250 Balance 120 860 230 -100 Meds/Results Medications: Active Medications Generic Name Dose Route Start Last Admin Trade Name Freq PRN Reason Stop Dose Admin Acetaminophen 500 mg 02/16/25 09:13 Acetaminophen 500 Mg Tablet PO TID PRN Pain Acetaminophen 500 mg 02/16/25 21:00 02/22/25 22:00 Acetaminophen 500 Mg Tablet PO 500 mg HS ILA Administration Amlodipine Besylate 2.5 mg 02/22/25 09:00 02/23/25 09:15 Amlodipine Besylate 2.5 Mg Tablet PO 2.5 mg QAM ILA Administration Atorvastatin Calcium 40 mg 02/16/25 21:00 02/22/25 22:00 Atorvastatin 40 Mg Tablet PO 40 mg QHS ILA Administration Diphenhydramine HCl 25 mg 02/16/25 21:00 02/22/25 21:59 Diphenhydramine Hcl Cap 25 Mg Capsule PO 25 mg HS ILA Administration Hydroxychloroquine Sulfate 200 mg 02/17/25 09:00 02/23/25 09:14 Hydroxychloroquine Sulfate 200 Mg Tablet PO 200 mg DAILY ILA Administration Lactated Ringer's 1,000 mls @ 100 mls/hr 02/15/25 20:30 02/16/25 10:39 Lr - Lactated Ringers Iv IV CONT 0 mls/hr .Q10H ILA Infusion Meropenem 1 gm/ Sodium 100 mls @ 200 mls/hr 02/21/25 22:00 02/23/25 06:10 Chloride IVPB Infused Q8HR ILA Infusion Lisinopril 40 mg 02/17/25 09:00 02/23/25 09:14 Lisinopril 20 Mg Tablet PO 40 mg DAILY ILA Administration Metoclopramide HCl 10 mg 02/21/25 15:16 Metoclopramide Hcl Inj 10 Mg/2 Ml Vial IV PUSH Q6HR PRN Nausea Metoprolol Succinate 25 mg 02/17/25 09:00 02/23/25 09:14 Metoprolol Succinate Ext Rel 25 Mg Tabcr PO 25 mg DAILY ILA Administration Multivitamins/Minerals 1 tab 02/16/25 11:00 02/23/25 09:14 Multivitamins /C Lutein (Centrum Silver) Tablet *Bkc PO 1 tab QAM ILA Administration Pantoprazole Sodium 40 mg 02/16/25 11:00 02/23/25 09:15 Pantoprazole 40 Mg Tablet PO 40 mg BID ILA Administration Prednisone 5 mg 02/16/25 17:00 02/23/25 09:15 Prednisone 5 Mg Tablet PO 5 mg BID ILA Administration Sodium Chloride 10 ml 02/22/25 22:00 02/23/25 05:37 Saline Lock Flush IV PUSH 10 ml Q8HR ILA Administration Sodium Chloride 10 ml 02/22/25 14:44 Saline Lock Flush IV PUSH PRN PRN Flush Sodium Chloride 20 ml 02/22/25 14:44 Saline Lock Flush IV PUSH PRN PRN after blood draws Tramadol HCl 100 mg 02/16/25 09:13 02/16/25 17:51 Tramadol Hcl (*Crx) 50 Mg Tablet PO 100 mg TID PRN Administration Pain Radiology Results: ITS Impressions Abdomen/Pelvis CT 02/15/25 19:25 IMPRESSION: Edematous mural thickening within the rectum, an interval change from prior. Significant mural thickening within the bladder with surrounding inflammatory change for which cystitis is suspected. Redemonstration of common bile duct dilatation to 11 mm, increased from 9 mm on the previous study. Heterogeneous enhancement of the liver, unchanged from prior. Chest X-Ray 02/16/25 12:19 Impression: Clear lungs. Stable cardiomegaly with loop recorder. Quality VTE Prophylaxis VTE prophylaxis: mechanical ordered
[2025-02-23] MEDS: ERTAPENEM SODIUM 1 GM in SODIUM CHLORIDE 0.9% IV 50 ML 100 ML IVPB (12:15)
[2025-02-23 14:00] VITALS: BP 118/64; PULSE 73; RESP 16; TEMP 36.4; O2SAT 94
[2025-02-23] MEDS: ATORVASTATIN 40 MG TABLET PO (20:08)
[2025-02-23] MEDS: ACETAMINOPHEN 500 MG TABLET PO (20:08)
[2025-02-23] MEDS: diphenhydrAMINE HCl CAP 25 MG CAPSULE PO (20:08)
[2025-02-23 21:05] VITALS: O2SAT 94
[2025-02-23 22:00] VITALS: BP 162/88; PULSE 65; RESP 16; TEMP 36.4; O2SAT 94
[2025-02-24] MEDS: SALINE LOCK FLUSH 10 ML IV PUSH ×3 (05:50→20:24)
[2025-02-24 05:59] VITALS: BP 168/84; PULSE 64; RESP 14; TEMP 36.9; O2SAT 96
[2025-02-24 08:32] VITALS: PULSE 70
[2025-02-24] MEDS: METOPROLOL SUCCINATE EXT REL 25 MG TABCR PO (08:32)
[2025-02-24] MEDS: HYDROXYCHLOROQUINE SULFATE 200 MG TABLET PO (08:32)
[2025-02-24] MEDS: MULTIVITAMINS /C LUTEIN (CENTRUM SILVER) TABLET *BKC 1 TAB PO (08:32)
[2025-02-24] MEDS: ERTAPENEM SODIUM 1 GM in SODIUM CHLORIDE 0.9% IV 50 ML 100 ML IVPB (08:33)
[2025-02-24] MEDS: PANTOPRAZOLE 40 MG TABLET PO ×2 (08:33→17:13)
--- NOTE | 2025-02-24 11:35 | PCOTNOTE ---
Patient declined, states she just finished therapy, feeling increased weakness and needs to rest.
--- NOTE | 2025-02-24 12:29 | P.PNIM_ITS ---
Progress Note: A&P Assessment and Plan (1) Sepsis: Code(s): A41.9 - Sepsis, unspecified organism Status: Resolved Assessment and Plan: Meets SIRS criteria: WBC, lactic acidosis, tachycardia - lactic acid: 2.7 >> 1.3 - sepsis fluids given - suspected source: UTI - blood cultures drawn on 02/15: NGTD - UA: cloudy appearance with 1+ protein, 1+ ketones, postive nitrates, 3+ leukocytes, 51-100 RBC, >100 WBC, 4+ bacteria - UC obtained on 02/15: ecoli with ESBL resistance see plan below - CXR: clear lungs - Abdomen/pelvis CT: Significant mural thickening within the bladder with surrounding inflammatory change for which cystitis is suspected. Redemonstration of common bile duct dilatation to 11 mm, increased from 9 mm on the previous study. LFTs WNL. Afebrile. Remains hemodynamically stable. (2) Urinary tract infection: Code(s): N39.0 - Urinary tract infection, site not specified Status: Acute Assessment and Plan: - UA: cloudy appearance with 1+ protein, 1+ ketones, positive nitrates, 3+ leukocytes, 51-100 RBC, >100 WBC, 4+ bacteria - UC obtained on 02/15: ecoli with ESBL - previous micro reviewed ESBL 05/09/21 - started on Rocephin 02/16, transitioned to meropenem 02/21 - mid line ordered for care home IV antibiotics, care coordination aware and following for placement - antibiotics changed to ertapenem daily- 4 more doses-last dose 02/27 02/24-continue anbitiotics care coordination working on placement possibly (3) Essential (primary) hypertension: Code(s): I10 - Essential (primary) hypertension Status: Chronic Assessment and Plan: Chronic, continue home medications - lisinopril 40 mg daily - metoprolol 25 mg daily - continue to monitor Patient continues to be hypertensive into the 170s to 180s systolic on her home regimen. She is on the highest dose of lisinopril and given the heart rate will intermittently drop into the lower 60s do not want increase her metoprolol at this time. Thus will trial patient on a low-dose of amlodipine 2.5 mg daily. - BP improved, currently 128/82 - continue to monitor (4) COPD (chronic obstructive pulmonary disease): Qualifiers: COPD type: unspecified COPD Qualified Code(s): J44.9 - Chronic obstructive pulmonary disease, unspecified Code(s): J44.9 - Chronic obstructive pulmonary disease, unspecified Status: Chronic Assessment and Plan: Does not appear in acute exacerbation Chest x-ray showed No infiltrates, effusions or pneumothorax. Underlying fibrotic changes. Patient is on room air Time Spent With Patient Time with patient: 25 - 35 minutes Subjective Date/time seen: 02/24/25 12:29 Interval history: 84-year-old female with past medical history of hypertension, afib, teri, stroke, htn, and COPD who presents to the hospital for nausea vomiting and abdomen pain. Pt is seen and examined. She reports that she only had been ambulating to the chair and back and cannot recall working much with PT/OT. She has weakness to rt leg-due to surgery to rt knee that had been affecting her mobility. 02/24 seen and examined. she is up in the chair. Pain free, no n/v/d. Review of Systems Review of Systems: ROS negative except above All systems reviewed & are unremarkable except as noted in HPI and below Exam Narrative: General: female in no acute respiratory distress who is nontoxic appearing, lying in bed HEENT: Normocephalic. Atraumatic. Extraocular movement intact. Sclera clear and anicteric. No facial asymmetry. Chest: Lungs are coarse to the bases to auscultation bilaterally. No wheezes or crackles. CV: Heart was regular rate and rhythm. Abd: Abdomen was soft. Nontender. Nondistended. Positive bowel sounds. Ext: No clubbing, cyanosis, or edema. DP pulses bilaterally. Neuro: Patient is alert and oriented x3. Speech is clear. Const: General: comfortable Objective Data Vital Signs Vital Signs: Vital Signs - 24 hr 02/23/25 14:00 02/23/25 20:00 02/23/25 21:05 Temperature 97.6 F Pulse Rate 73 Respiratory Rate 16 Blood Pressure 118/64 Pulse Oximetry 94 94 Oxygen Delivery Room Air Room Air 02/23/25 22:00 02/24/25 05:59 02/24/25 08:32 Temperature 97.6 F 98.4 F Pulse Rate 65 64 70 Respiratory Rate 16 14 Blood Pressure 162/88 H 168/84 H Pulse Oximetry 94 96 Oxygen Delivery Intake/Output Intake/Output: Intake & Output 02/21/25 02/22/25 02/23/25 02/24/25 23:59 23:59 23:59 23:59 Intake Total 1760 1330 320 320 Output Total 900 1100 700 500 Balance 860 230 -380 -180 Meds/Results Medications: Active Medications Generic Name Dose Route Start Last Admin Trade Name Jennifer PRN Reason Stop Dose Admin Acetaminophen 500 mg 02/16/25 09:13 Acetaminophen 500 Mg Tablet PO TID PRN Pain Acetaminophen 500 mg 02/16/25 21:00 02/23/25 20:08 Acetaminophen 500 Mg Tablet PO 500 mg HS ILA Administration Amlodipine Besylate 2.5 mg 02/22/25 09:00 02/24/25 08:33 Amlodipine Besylate 2.5 Mg Tablet PO 2.5 mg QAM ILA Administration Atorvastatin Calcium 40 mg 02/16/25 21:00 02/23/25 20:08 Atorvastatin 40 Mg Tablet PO 40 mg QHS ILA Administration Diphenhydramine HCl 25 mg 02/16/25 21:00 02/23/25 20:08 Diphenhydramine Hcl Cap 25 Mg Capsule PO 25 mg HS ILA Administration Hydroxychloroquine Sulfate 200 mg 02/17/25 09:00 02/24/25 08:32 Hydroxychloroquine Sulfate 200 Mg Tablet PO 200 mg DAILY ILA Administration Lactated Ringer's 1,000 mls @ 100 mls/hr 02/15/25 20:30 02/16/25 10:39 Lr - Lactated Ringers Iv IV CONT 0 mls/hr .Q10H ILA Infusion Ertapenem 1 gm/ Sodium 50 mls @ 100 mls/hr 02/23/25 12:00 02/24/25 08:33 Chloride IVPB 02/27/25 09:29 100 mls/hr DAILY ILA Administration Lisinopril 40 mg 02/17/25 09:00 02/24/25 08:32 Lisinopril 20 Mg Tablet PO 40 mg DAILY ILA Administration Metoclopramide HCl 10 mg 02/21/25 15:16 Metoclopramide Hcl Inj 10 Mg/2 Ml Vial IV PUSH Q6HR PRN Nausea Metoprolol Succinate 25 mg 02/17/25 09:00 02/24/25 08:32 Metoprolol Succinate Ext Rel 25 Mg Tabcr PO 25 mg DAILY ILA Administration Multivitamins/Minerals 1 tab 02/16/25 11:00 02/24/25 08:32 Multivitamins /C Lutein (Centrum Silver) Tablet *Bkc PO 1 tab QAM ILA Administration Pantoprazole Sodium 40 mg 02/16/25 11:00 02/24/25 08:33 Pantoprazole 40 Mg Tablet PO 40 mg BID ILA Administration Prednisone 5 mg 02/16/25 17:00 02/24/25 08:32 Prednisone 5 Mg Tablet PO 5 mg BID ILA Administration Sodium Chloride 10 ml 02/22/25 22:00 02/24/25 05:50 Saline Lock Flush IV PUSH 10 ml Q8HR ILA Administration Sodium Chloride 10 ml 02/22/25 14:44 Saline Lock Flush IV PUSH PRN PRN Flush Sodium Chloride 20 ml 02/22/25 14:44 Saline Lock Flush IV PUSH PRN PRN after blood draws Tramadol HCl 100 mg 02/16/25 09:13 02/16/25 17:51 Tramadol Hcl (*Crx) 50 Mg Tablet PO 100 mg TID PRN Administration Pain Radiology Results: ITS Impressions Abdomen/Pelvis CT 02/15/25 19:25 IMPRESSION: Edematous mural thickening within the rectum, an interval change from prior. Significant mural thickening within the bladder with surrounding inflammatory change for which cystitis is suspected. Redemonstration of common bile duct dilatation to 11 mm, increased from 9 mm on the previous study. Heterogeneous enhancement of the liver, unchanged from prior. Chest X-Ray 02/16/25 12:19 Impression: Clear lungs. Stable cardiomegaly with loop recorder. Quality VTE Prophylaxis VTE prophylaxis: mechanical ordered
[2025-02-24 14:00] VITALS: BP 164/85; PULSE 64; RESP 16; TEMP 36.4; O2SAT 96
[2025-02-24] MEDS: diphenhydrAMINE HCl CAP 25 MG CAPSULE PO (20:23)
[2025-02-24] MEDS: ATORVASTATIN 40 MG TABLET PO (20:23)
[2025-02-24] MEDS: ACETAMINOPHEN 500 MG TABLET PO (20:23)
[2025-02-24 21:15] VITALS: O2SAT 96
[2025-02-24 22:00] VITALS: BP 133/75; PULSE 69; RESP 20; TEMP 35.8; O2SAT 93
[2025-02-25] MEDS: SALINE LOCK FLUSH 10 ML IV PUSH ×3 (05:10→21:45)
[2025-02-25 06:00] VITALS: BP 145/75; PULSE 64; RESP 20; TEMP 35.3; O2SAT 93
[2025-02-25 09:38] VITALS: PULSE 64
[2025-02-25] MEDS: METOPROLOL SUCCINATE EXT REL 25 MG TABCR PO (09:38)
[2025-02-25] MEDS: PANTOPRAZOLE 40 MG TABLET PO ×2 (09:38→17:28)
[2025-02-25] MEDS: ERTAPENEM SODIUM 1 GM in SODIUM CHLORIDE 0.9% IV 50 ML 100 ML IVPB (09:38)
[2025-02-25] MEDS: HYDROXYCHLOROQUINE SULFATE 200 MG TABLET PO (09:39)
[2025-02-25] MEDS: MULTIVITAMINS /C LUTEIN (CENTRUM SILVER) TABLET *BKC 1 TAB PO (09:39)
[2025-02-25 14:00] VITALS: BP 109/71; PULSE 71; RESP 16; TEMP 36.4; O2SAT 96
--- NOTE | 2025-02-25 15:15 | P.PNIM_ITS ---
Progress Note: A&P Assessment and Plan (1) Sepsis: Code(s): A41.9 - Sepsis, unspecified organism Status: Resolved Assessment and Plan: Meets SIRS criteria: WBC, lactic acidosis, tachycardia - lactic acid: 2.7 >> 1.3 - sepsis fluids given - suspected source: UTI - blood cultures drawn on 02/15: NGTD - UA: cloudy appearance with 1+ protein, 1+ ketones, postive nitrates, 3+ leukocytes, 51-100 RBC, >100 WBC, 4+ bacteria - UC obtained on 02/15: ecoli with ESBL resistance see plan below - CXR: clear lungs - Abdomen/pelvis CT: Significant mural thickening within the bladder with surrounding inflammatory change for which cystitis is suspected. Redemonstration of common bile duct dilatation to 11 mm, increased from 9 mm on the previous study. LFTs WNL. Afebrile. Remains hemodynamically stable. resolved (2) Urinary tract infection: Code(s): N39.0 - Urinary tract infection, site not specified Status: Acute Assessment and Plan: - UA: cloudy appearance with 1+ protein, 1+ ketones, positive nitrates, 3+ leukocytes, 51-100 RBC, >100 WBC, 4+ bacteria - UC obtained on 02/15: ecoli with ESBL - previous micro reviewed ESBL 05/09/21 - started on Rocephin 02/16, transitioned to meropenem 02/21 - mid line ordered for senior living IV antibiotics, care coordination aware and following for placement - antibiotics changed to ertapenem daily- 4 more doses-last dose 02/27 02/24-continue anbitiotics care coordination working on placement possibly 02/25 anticipate discharge tomorrow to [facility] with two more doses to complete the course (3) Essential (primary) hypertension: Code(s): I10 - Essential (primary) hypertension Status: Chronic Assessment and Plan: Chronic, continue home medications - lisinopril 40 mg daily - metoprolol 25 mg daily - continue to monitor Patient continues to be hypertensive into the 170s to 180s systolic on her home regimen. She is on the highest dose of lisinopril and given the heart rate will intermittently drop into the lower 60s do not want increase her metoprolol at this time. Thus will trial patient on a low-dose of amlodipine 2.5 mg daily. - BP improved, currently 128/82 - continue to monitor 02/25 stable overall-continue (4) COPD (chronic obstructive pulmonary disease): Qualifiers: COPD type: unspecified COPD Qualified Code(s): J44.9 - Chronic obstructive pulmonary disease, unspecified Code(s): J44.9 - Chronic obstructive pulmonary disease, unspecified Status: Chronic Assessment and Plan: Does not appear in acute exacerbation Chest x-ray showed No infiltrates, effusions or pneumothorax. Underlying fibrotic changes. Patient is on room air Time Spent With Patient Time with patient: 25 - 35 minutes Subjective Date/time seen: 02/25/25 15:15 Interval history: 84-year-old female with past medical history of hypertension, afib, teri, stroke, htn, and COPD who presents to the hospital for nausea vomiting and abdomen pain. Pt is seen and examined. She reports that she only had been ambulating to the chair and back and cannot recall working much with PT/OT. She has weakness to rt leg-due to surgery to rt knee that had been affecting her mobility. 02/24 seen and examined. she is up in the chair. Pain free, no n/v/d. 02/25 pt is doing well, no acute events overnight. Anticipate discharge to [facility]. Review of Systems Review of Systems: ROS negative except above All systems reviewed & are unremarkable except as noted in HPI and below Exam Narrative: General: female in no acute respiratory distress who is nontoxic appearing, lying in bed HEENT: Normocephalic. Atraumatic. Extraocular movement intact. Sclera clear and anicteric. No facial asymmetry. Chest: Lungs are coarse to the bases to auscultation bilaterally. No wheezes or crackles. CV: Heart was regular rate and rhythm. Abd: Abdomen was soft. Nontender. Nondistended. Positive bowel sounds. Ext: No clubbing, cyanosis, or edema. DP pulses bilaterally. Neuro: Patient is alert and oriented x3. Speech is clear. Const: General: comfortable Objective Data Vital Signs Vital Signs: Vital Signs - 24 hr 02/24/25 20:00 02/24/25 21:15 02/24/25 22:00 Temperature 96.5 F L Pulse Rate 69 Respiratory Rate 20 Blood Pressure 133/75 Pulse Oximetry 96 93 Oxygen Delivery Room Air Room Air 02/25/25 06:00 02/25/25 08:00 02/25/25 09:38 Temperature 95.5 F L Pulse Rate 64 64 Respiratory Rate 20 Blood Pressure 145/75 H Pulse Oximetry 93 Oxygen Delivery Room Air Intake/Output Intake/Output: Intake & Output 02/22/25 02/23/25 02/24/25 02/25/25 23:59 23:59 23:59 23:59 Intake Total 1330 320 610 370 Output Total 7148 363 4285 400 Balance 230 -380 -490 -30 Meds/Results Medications: Active Medications Generic Name Dose Route Start Last Admin Trade Name Freq PRN Reason Stop Dose Admin Acetaminophen 500 mg 02/16/25 09:13 Acetaminophen 500 Mg Tablet PO TID PRN Pain Acetaminophen 500 mg 02/16/25 21:00 02/24/25 20:23 Acetaminophen 500 Mg Tablet PO 500 mg HS ILA Administration Amlodipine Besylate 2.5 mg 02/22/25 09:00 02/25/25 09:38 Amlodipine Besylate 2.5 Mg Tablet PO 2.5 mg QAM ILA Administration Atorvastatin Calcium 40 mg 02/16/25 21:00 02/24/25 20:23 Atorvastatin 40 Mg Tablet PO 40 mg QHS ILA Administration Diphenhydramine HCl 25 mg 02/16/25 21:00 02/24/25 20:23 Diphenhydramine Hcl Cap 25 Mg Capsule PO 25 mg HS ILA Administration Hydroxychloroquine Sulfate 200 mg 02/17/25 09:00 02/25/25 09:39 Hydroxychloroquine Sulfate 200 Mg Tablet PO 200 mg DAILY ILA Administration Lactated Ringer's 1,000 mls @ 100 mls/hr 02/15/25 20:30 02/16/25 10:39 Lr - Lactated Ringers Iv IV CONT 0 mls/hr .Q10H ILA Infusion Ertapenem 1 gm/ Sodium 50 mls @ 100 mls/hr 02/23/25 12:00 02/25/25 10:08 Chloride IVPB 02/27/25 09:29 Infused DAILY ILA Infusion Lisinopril 40 mg 02/17/25 09:00 02/25/25 09:39 Lisinopril 20 Mg Tablet PO 40 mg DAILY ILA Administration Metoclopramide HCl 10 mg 02/21/25 15:16 Metoclopramide Hcl Inj 10 Mg/2 Ml Vial IV PUSH Q6HR PRN Nausea Metoprolol Succinate 25 mg 02/17/25 09:00 02/25/25 09:38 Metoprolol Succinate Ext Rel 25 Mg Tabcr PO 25 mg DAILY ILA Administration Miscellaneous Information 0 each 02/25/25 00:01 Please Renew Tramadol_. Per [employer] Procedure, It Will Discontinue If Not Renewed XX 03/27/25 00:00 CLARIFY ILA Multivitamins/Minerals 1 tab 02/16/25 11:00 02/25/25 09:39 Multivitamins /C Lutein (Centrum Silver) Tablet *Bkc PO 1 tab QAM ILA Administration Pantoprazole Sodium 40 mg 02/16/25 11:00 02/25/25 09:38 Pantoprazole 40 Mg Tablet PO 40 mg BID ILA Administration Prednisone 5 mg 02/16/25 17:00 02/25/25 09:39 Prednisone 5 Mg Tablet PO 5 mg BID ILA Administration Sodium Chloride 10 ml 02/22/25 22:00 02/25/25 14:59 Saline Lock Flush IV PUSH 10 ml Q8HR ILA Administration Sodium Chloride 10 ml 02/22/25 14:44 Saline Lock Flush IV PUSH PRN PRN Flush Sodium Chloride 20 ml 02/22/25 14:44 Saline Lock Flush IV PUSH PRN PRN after blood draws Tramadol HCl 100 mg 02/16/25 09:13 02/16/25 17:51 Tramadol Hcl (*Crx) 50 Mg Tablet PO 100 mg TID PRN Administration Pain Radiology Results: ITS Impressions Abdomen/Pelvis CT 02/15/25 19:25 IMPRESSION: Edematous mural thickening within the rectum, an interval change from prior. Significant mural thickening within the bladder with surrounding inflammatory change for which cystitis is suspected. Redemonstration of common bile duct dilatation to 11 mm, increased from 9 mm on the previous study. Heterogeneous enhancement of the liver, unchanged from prior. Chest X-Ray 02/16/25 12:19 Impression: Clear lungs. Stable cardiomegaly with loop recorder. Quality VTE Prophylaxis VTE prophylaxis: mechanical ordered
[2025-02-25 20:31] VITALS: BP 133/73; PULSE 76; RESP 17; TEMP 36.6; O2SAT 94
[2025-02-25] MEDS: diphenhydrAMINE HCl CAP 25 MG CAPSULE PO (20:56)
[2025-02-25] MEDS: ATORVASTATIN 40 MG TABLET PO (20:56)
[2025-02-25] MEDS: ACETAMINOPHEN 500 MG TABLET PO (20:56)
[2025-02-26 05:45] VITALS: BP 166/96; PULSE 69; RESP 16; TEMP 36.6; O2SAT 94
[2025-02-26] MEDS: SALINE LOCK FLUSH 10 ML IV PUSH ×2 (06:22→21:24)
[2025-02-26 08:00] VITALS: PULSE 69; RESP 16; O2SAT 94
--- NOTE | 2025-02-26 08:18 | PM.DS ---
DS: Admitting Diagnosis Discharge Date 02/26 Admitting Diagnosis n/v, abd pain DS: Discharge Diagnosis Discharge Diagnosis (1) Sepsis: Code(s): A41.9 - Sepsis, unspecified organism Status: Resolved (2) Urinary tract infection: Code(s): N39.0 - Urinary tract infection, site not specified Status: Acute (3) Essential (primary) hypertension: Code(s): I10 - Essential (primary) hypertension Status: Chronic (4) COPD (chronic obstructive pulmonary disease): Qualifiers: COPD type: unspecified COPD Qualified Code(s): J44.9 - Chronic obstructive pulmonary disease, unspecified Code(s): J44.9 - Chronic obstructive pulmonary disease, unspecified Status: Chronic DS: Summary Hospital Course Hospital Course: 84-year-old female with past medical history of hypertension, afib, teri, stroke, htn, and COPD who presents to the hospital for nausea vomiting and abdomen pain. 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 # Sepsis Meets SIRS criteria: WBC, lactic acidosis, tachycardia - lactic acid: 2.7 >> 1.3 - IV fluids given - suspected source: UTI - blood cultures drawn on 02/15: NGTD - UA: cloudy appearance with 1+ protein, 1+ ketones, postive nitrates, 3+ leukocytes, 51-100 RBC, >100 WBC, 4+ bacteria - UC obtained on 02/15: ecoli with ESBL resistance - CXR: clear lungs - Abdomen/pelvis CT: Significant mural thickening within the bladder with surrounding inflammatory change for which cystitis is suspected. Remonstration of common bile duct dilatation to 11 mm, increased from 9 mm on the previous study. LFTs WNL. Afebrile. Remains hemodynamically stable. resolved Status at Discharge Functional status at discharge: uses cane/walker Overall status at discharge: patient is progressing back to baseline Time Spent with Patient Time attestation: Total time spent providing and/or coordinating discharge services: Time spent: Greater than 30 minutes Exam Narrative: General: female in no acute respiratory distress who is nontoxic appearing, calm, pleasant HEENT: Normocephalic. Atraumatic. Extraocular movement intact. Sclera clear and anicteric. No facial asymmetry. Chest: Lungs are coarse to the bases to auscultation bilaterally. No wheezes or crackles. CV: Heart was regular rate and rhythm. Abd: Abdomen was soft. Nontender. Nondistended. Positive bowel sounds. Ext: No clubbing, cyanosis, or edema. DP pulses bilaterally. Neuro: Patient is alert and oriented x3. Speech is clear. Const: General: comfortable Discharge Plan Discharge Attending physician on discharge: Juan Mann Consulting providers: Amy Barth; Krystal Syed Discharging Clinician: Greta Barth Patient Disposition: SNF Activity: december shower Diet: heart healthy Discharge Instructions: You were admitted for n/v/abd pain and diagnosed with UTI. You will receive a dose today, 02/26, prior to leaving- and will need one more dose of antibiotic tomorrow, 02/27 and course is completed. Patient Language: Guamanian Stand Alone Forms: General Discharge Information Discharge Medications: Continued acetaminophen [Tylenol Extra Strength] 500 mg tablet 500 mg PO TID PRN (Reason: Pain) Patient Comments: TAKES WITH TRAMADOL TID FOR PAIN prednisone 2.5 mg tablet 5 mg PO BID omeprazole 40 mg capsule,delayed release(DR/EC) 40 mg PO DAILY hydroxychloroquine 200 mg tablet 400 mg PO DAILY diphenhydramine-acetaminophen [Tylenol PM Extra Strength] 25-500 mg Tablet 1 tablet PO HS hydrochlorothiazide 25 mg tablet 25 mg PO DAILY tramadol 50 mg tablet 50 mg PO TID PRN (Reason: Pain) Qty: 10 0RF Centrum Silver Tablet 1 tablet PO DAILY atorvastatin 40 mg tablet 40 mg PO QHS Qty: 90 1RF metoprolol succinate 25 mg tablet extended release 24 hr 25 mg PO DAILY Qty: 90 1RF lisinopril 40 mg tablet 40 mg PO DAILY Qty: 90 1RF Date of admission: 02/16/25 07:41 Primary Care Provider: Gino Han Admitting Provider: Rina Taveras Attending physician on admission: Ammon Mata Condition: Stable Quality VTE Prophylaxis VTE prophylaxis: mechanical ordered Hospitalist MIPS Heart Failure (Exclusion) Patient has history of Heart Transplant or Left Ventricular Assistive Device?: No IF YES, STOP HERE Heart Failure (Qualifier) Patient has current or prior documentation of LVEF less than or equal to 40%, or mod/servere depressed LVSF?: No IF NO, STOP HERE
[2025-02-26] MEDS: MULTIVITAMINS /C LUTEIN (CENTRUM SILVER) TABLET *BKC 1 TAB PO (09:46)
[2025-02-26] MEDS: PANTOPRAZOLE 40 MG TABLET PO ×2 (09:46→18:12)
[2025-02-26] MEDS: ERTAPENEM SODIUM 1 GM in SODIUM CHLORIDE 0.9% IV 50 ML 100 ML IVPB (09:46)
[2025-02-26] MEDS: HYDROXYCHLOROQUINE SULFATE 200 MG TABLET PO (09:46)
[2025-02-26] MEDS: METOPROLOL SUCCINATE EXT REL 25 MG TABCR PO (09:46)
[2025-02-26 14:00] VITALS: BP 126/68; PULSE 66; RESP 18; TEMP 35.9; O2SAT 93
[2025-02-26 20:00] VITALS: PULSE 64; RESP 18; O2SAT 96
[2025-02-26 21:11] VITALS: O2SAT 96
[2025-02-26] MEDS: diphenhydrAMINE HCl CAP 25 MG CAPSULE PO (21:24)
[2025-02-26] MEDS: ATORVASTATIN 40 MG TABLET PO (21:24)
[2025-02-26] MEDS: ACETAMINOPHEN 500 MG TABLET PO (21:24)
[2025-02-26 21:54] VITALS: BP 138/69; PULSE 64; RESP 18; TEMP 36.6; O2SAT 96
[2025-02-27 06:00] VITALS: BP 174/79; PULSE 64; RESP 20; TEMP 36.4; O2SAT 95
[2025-02-27] MEDS: SALINE LOCK FLUSH 10 ML IV PUSH (06:19)
--- NOTE | 2025-02-27 06:50 | PM.DS ---
DS: Admitting Diagnosis Discharge Date 02/27 Admitting Diagnosis n/v/abd pain DS: Discharge Diagnosis Discharge Diagnosis (1) Sepsis: Code(s): A41.9 - Sepsis, unspecified organism Status: Resolved (2) Urinary tract infection: Code(s): N39.0 - Urinary tract infection, site not specified Status: Acute (3) Essential (primary) hypertension: Code(s): I10 - Essential (primary) hypertension Status: Chronic (4) COPD (chronic obstructive pulmonary disease): Qualifiers: COPD type: unspecified COPD Qualified Code(s): J44.9 - Chronic obstructive pulmonary disease, unspecified Code(s): J44.9 - Chronic obstructive pulmonary disease, unspecified Status: Chronic DS: Summary Hospital Course Hospital Course: 84-year-old female with past medical history of hypertension, afib, teri, stroke, htn, and COPD who presents to the hospital for nausea vomiting and abdomen pain. Several issues were addressed: #UTI - UA: cloudy appearance with 1+ protein, 1+ ketones, positive nitrates, 3+ leukocytes, 51-100 RBC, >100 WBC, 4+ bacteria - UC obtained on 02/15: ecoli with ESBL - previous micro reviewed ESBL 05/09/21 - started on Rocephin 02/16, transitioned to meropenem 02/21 - mid line ordered for long-term IV antibiotics, care coordination aware and following for placement - antibiotics changed to ertapenem daily- 4 more doses-last dose 02/27 Pt will be receiving her last dose today, on 02/27 and course is completed. # Sepsis Meets SIRS criteria: WBC, lactic acidosis, tachycardia - lactic acid: 2.7 >> 1.3 - IV fluids given - suspected source: UTI - blood cultures drawn on 02/15: NGTD - UA: cloudy appearance with 1+ protein, 1+ ketones, postive nitrates, 3+ leukocytes, 51-100 RBC, >100 WBC, 4+ bacteria - UC obtained on 02/15: ecoli with ESBL resistance - CXR: clear lungs - Abdomen/pelvis CT: Significant mural thickening within the bladder with surrounding inflammatory change for which cystitis is suspected. Remonstration of common bile duct dilatation to 11 mm, increased from 9 mm on the previous study. LFTs WNL. Afebrile. Remains hemodynamically stable. resolved Status at Discharge Functional status at discharge: uses cane/walker Overall status at discharge: patient is progressing back to baseline Time Spent with Patient Time attestation: Total time spent providing and/or coordinating discharge services: Time spent: Less than 30 minutes Exam Narrative: General: female in no acute respiratory distress who is nontoxic appearing, calm, pleasant HEENT: Normocephalic. Atraumatic. Extraocular movement intact. Sclera clear and anicteric. No facial asymmetry. Chest: Lungs are coarse to the bases to auscultation bilaterally. No wheezes or crackles. CV: Heart was regular rate and rhythm. Abd: Abdomen was soft. Nontender. Nondistended. Positive bowel sounds. Ext: No clubbing, cyanosis, or edema. DP pulses bilaterally. Neuro: Patient is alert and oriented x3. Speech is clear. Const: General: comfortable Discharge Plan Discharge Attending physician on discharge: Juan Mann Consulting providers: Amy Barth; Krystal Syed Discharging Clinician: Greta Barth Patient Disposition: SNF Activity: december shower Diet: heart healthy Discharge Instructions: You were admitted for n/v/abd pain and diagnosed with UTI. You will receive an antibiotic dose today, 02/27 prior to leaving- and course is completed. Patient Language: Surinamese Stand Alone Forms: General Discharge Information Discharge Medications: Continued acetaminophen [Tylenol Extra Strength] 500 mg tablet 500 mg PO TID PRN (Reason: Pain) Patient Comments: TAKES WITH TRAMADOL TID FOR PAIN prednisone 2.5 mg tablet 5 mg PO BID omeprazole 40 mg capsule,delayed release(DR/EC) 40 mg PO DAILY hydroxychloroquine 200 mg tablet 400 mg PO DAILY diphenhydramine-acetaminophen [Tylenol PM Extra Strength] 25-500 mg Tablet 1 tablet PO HS hydrochlorothiazide 25 mg tablet 25 mg PO DAILY tramadol 50 mg tablet 50 mg PO TID PRN (Reason: Pain) Qty: 10 0RF Centrum Silver Tablet 1 tablet PO DAILY atorvastatin 40 mg tablet 40 mg PO QHS Qty: 90 1RF metoprolol succinate 25 mg tablet extended release 24 hr 25 mg PO DAILY Qty: 90 1RF lisinopril 40 mg tablet 40 mg PO DAILY Qty: 90 1RF Date of admission: 02/16/25 07:41 Primary Care Provider: Gino Hna Admitting Provider: Rina Taveras Attending physician on admission: Ammon Mata Condition: Stable Quality VTE Prophylaxis VTE prophylaxis: mechanical ordered
[2025-02-27] MEDS: ERTAPENEM SODIUM 1 GM in SODIUM CHLORIDE 0.9% IV 50 ML 100 ML IVPB (09:21)
[2025-02-27] MEDS: MULTIVITAMINS /C LUTEIN (CENTRUM SILVER) TABLET *BKC 1 TAB PO (09:22)
[2025-02-27] MEDS: METOPROLOL SUCCINATE EXT REL 25 MG TABCR PO (09:22)
[2025-02-27] MEDS: PANTOPRAZOLE 40 MG TABLET PO (09:22)
== END 2025-02-27 13:00 | DRG 872 ==
LOC: ANHED 19:47 → ANH3MEDSUR 21:43
PROVIDERS: Hospitalist; Admitting Provider Internal Medicine; Emergency Provider Emergency Medicine; PCP Family Medicine; Visit Provider Internal Medicine
DX: A41.9 Sepsis, unspecified organism (principal); N39.0 Urinary tract infection, site not specified; B96.20 Unspecified Escherichia coli [E. coli] as the cause of diseases classified elsewhere; E78.5 Hyperlipidemia, unspecified; E55.9 Vitamin D deficiency, unspecified; E87.6 Hypokalemia; E86.0 Dehydration; G89.29 Other chronic pain; I48.91 Unspecified atrial fibrillation; I10 Essential (primary) hypertension; J44.9 Chronic obstructive pulmonary disease, unspecified; K21.9 Gastro-esophageal reflux disease without esophagitis; M06.9 Rheumatoid arthritis, unspecified; M54.9 Dorsalgia, unspecified; Z86.73 Personal history of transient ischemic attack (TIA), and cerebral infarction without residual deficits; G47.33 Obstructive sleep apnea (adult) (pediatric); Z86.711 Personal history of pulmonary embolism; Z85.828 Personal history of other malignant neoplasm of skin; Z90.49 Acquired absence of other specified parts of digestive tract; Z96.651 Presence of right artificial knee joint
CPT/HCPCS: 36415; 36569; 71045; 74177; 80048; 80053; 81001; 83605; 83880; 85025; 85027; 85055; 85610; 85730; 87040; 87086; 87637; 93005; 93308; 96361; 96365; 97110; 97162; 97166; 97530; 97535; 99285; A9270; C1751; J0696; J1335; J2003; J2185; J2405; J2765; J7030; J7120; J7512; Q9967

== ENCOUNTER 2025-03-25 14:26 | Outpatient (CLI) | payer MEDICARE, SELFPAY ==
--- OUTSIDE RECORDS SUMMARY | 2025-03-25 14:28 | XMS_ITS | Encounter Summary ---
Author Organization [facility] Address [address] [place] [address] Care Team Providers Care Outreach Professional Name Role Phone Cory Ayers DO Primary Care Provider Encounter Details Date Type Department Care Team (Late st Contact Info) Description 10/06/2002 Outpatient Historical HIS MRI DEPT [facility], [place] [address] 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
--- OUTSIDE RECORDS SUMMARY | 2025-03-25 14:28 | XMS_ITS | Clinical Summary ---
Author Organization [facility] Address [address] [facility] 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
--- OUTSIDE RECORDS SUMMARY | 2025-03-25 14:28 | XMS_ITS | Encounter Summary ---
Author Organization [facility] Address 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
--- OUTSIDE RECORDS SUMMARY | 2025-03-25 14:28 | XMS_ITS | Encounter Summary ---
Author Organization [facility] Health Address [address] [place] [address] Care Team Providers Care Component Design Engineer Name Role Phone Cory Ayers DO Primary Care Provider Darnell Raymond MD Unavailable Esthela Barksdale MD Primary Care Provider Un available Cory Ayers DO Primary Care Provider Cory Ayers DO Primary Care Provider Dano Han MD Primary Care Provider Stefani Mulligan MD Unavailable [phone] Cory Ayers DO Primary Care Provider [phone] Dano Han MD Primary Care Provider Amalia Gregory MD Unavailable [phone] Encounter Details Date Type Department Care Team (Late st Contact Info) Description 11/26/2017 [facility] Outpatient Visit [facility] [address] [place] [address] [place] [address] [address] Social History Tobacco Use Types Packs/Day Years Used Date Smoking Tobacco: Never Smokeless Tobacco: Never Alcohol Use Standard Drinks/Week Comments No 0 (1 standard drink = 0.6 oz pur e alcohol) Comments Unknown Sex and Gender Information Value Date Recorded Sex Assigned at Not on file 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 Gender Identity Female 01/16/2021 10:27 AM CDT [...] documented as of this encounter Care Teams Component Design Engineer Relationship Specialty Start Date End Date Cory Ayers DO PCP - General Internal Medicine 10/30/17 06/10/19 Esthela Barksdale MD [address] [place] [address] PCP - General Family Medicine 07/07/19 01/16/20 Cory Ayers DO [address] [address] PCP - General 01/17/20 03/19/20 Cory Ayers DO [address] [place] [address] PCP - General 03/23/20 03/27/20 Dano Han [place] [address] PCP - General Family Medicine 03/28/20 03/30/20 Cory Ayers DO [address] [address] PCP - General 03/31/20 04/02/20 Dano Han MD [address] [place] [address] PCP - General 04/03/20 [place] [address] [place] [address] Orthopedic Surgery 10/30/17 [place] [address] [place] [address] Bulk Fluids Handler Cardiovascular Disease 03/28/20 [place] [address] [place] [address] Rheumatology 10/26/20 documented as of this encounter
--- OUTSIDE RECORDS SUMMARY | 2025-03-25 14:28 | XMS_ITS | Encounter Summary ---
Author Organization [facility] Address 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
--- OUTSIDE RECORDS SUMMARY | 2025-03-25 14:28 | XMS_ITS | Encounter Summary ---
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
--- OUTSIDE RECORDS SUMMARY | 2025-03-25 14:28 | XMS_ITS | Encounter Summary ---
Author Organization [facility] Address [address] [place] [address] Care Team Providers Care Front Desk Person Name Role Phone Cory Ayers DO Primary Care Provider Encounter Details Date Type Department Care Team (Late st Contact Info) Description 07/12/2002 Outpatient Historical [facility] [address] 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
--- OUTSIDE RECORDS SUMMARY | 2025-03-25 14:28 | XMS_ITS | Clinical Summary ---
Author Organization [facility] Address [address] [place] [address] Care Team Providers Care Kelp Cutter Name Role Phone Darnell Raymond MD Unavailable [phone] Stefani Mulligan MD Unavailable [phone] Dano Han MD Primary Care Provider Amalia Gregory MD Unavailable [phone] Source Comments [facility],non-owned Affiliates and Associated Physician Practices is amultiple site organization consisting of ambulatory clinics and hospital sitesin [place], [place], [place] and [place]. This disclosure is being madepursuant to the Care Everywhere program and may not contain all information available regarding this patient. Last updated 18.[facility] [employer] Allergies No known active allergies Medications * [...] Description 02/03/2025 12:30 PM CDT Ancillary Procedure [facility] Orthopedics - Radiology [address] [place] [phone] Rex Gresham, SUKUMAR Presence of right artificial knee joint 02/03/2025 12:25 PM CDT Ancillary Procedure [facility] Orthopedics - Radiology [address] [place] [phone] Rex Gresham, SUKUMAR Presence of right artificial knee joint 02/03/2025 11:50 AM CDT Office Visit [facility] Orthopedics [address] [place] [address], [address] [place] [address] Rex Gresham PA-C Presence of right artificial knee joint (Primary Dx); Lumbar spondylosis; Primary osteoarthritis of right hip 02/03/2025 11:40 AM CDT Ancillary Procedure [facility] Orthopedics - Radiology [address] [place] [phone] Rex Gresham PA-C Presence of right artificial [...] on file Legal Sex Female 6:13 PM BRAND RECORDER Gender Identity Female 01/16/2021 10:27 AM CDT Sexual Orientation Not on file Last Filed Vital Signs Vital Sign Reading Time Taken Comments Blood Pressure 159/91 10/08/2023 10:15 AM BRAND RECORDER Pulse 76 10/08/2023 10:15 AM BRAND RECORDER Temperature 36.2 C (97.1 F) 07/12/2021 8:47 AM BRAND RECORDER Respiratory Rate 18 03/26/2021 10:24 AM CDT Oxygen Saturation 98% 10/26/2020 11:25 AM CDT Inhaled Oxygen Concentration - - Weight 70.3 kg (155 lb) 10/08/2023 10:15 AM BRAND RECORDER Height 157.5 cm (5' 2) 10/08/2023 10:15 AM BRAND RECORDER Body Mass Index 28.35 10/08/2023 10:15 AM BRAND RECORDER Plan of Treatment Health Maintenance Due Date [...] this topic Medical Devices Implanted Type Area Hand Deicer Element Winder Device Identifier Shelf Expiration Date Model / Serial / Lot Cmnt Bone Cblt 40gm Hvisc Strl Implanted:Qty: 1 on 12/15/2017 by Darnell Raymond MD at [facility] Right: Knee [employer] 06/10/2019 600-15-000 / / [id number] Cmpnt Fem Kn Rt Cr Cmnt Prm Vngrd Intlk Implanted:Qty: 1 on 12/15/2017 by Darnell Raymond MD at [facility] Right: Knee [employer] 09/14/2027 [id number] / / [id number] Tray Tib 71mm Kn Cocr I Beam Implanted:Qty: 1 on 12/15/2017 by Darnell Raymond MD at [facility] Right: Knee [employer] 08/07/2027 [id number] / / [id number] Cmpnt Ptlr 28mm 1 Pg Wire Ascnt Arcm Kn Implanted:Qty: 1 on 12/15/2017 by Darnell Raymond MD at [facility] Right: Knee [employer] 09/01/2022 [id number] / / [id number] Brng [id number] Vngrd Arcm Kn Ant Stab Implanted:Qty: 1 on 12/15/2017 by Darnell Raymond MD at [facility] Right: Knee [employer] 09/04/2022 [id number] / / [id number] Procedures Procedure Name Priority Date/Time Associated Diagnosis [...] or 2Vw (02/03/2025 12:30 PM CDT) Narrative [facility] [address] - 02/03/2025 12:30 PM CDT Please see progress note in Epic for results. Rex VALVERDE-C DIAGNOSTIC IMAGING ORDERABL ES Final Result Performing Organization Address [facility] de Phone Number [facility] [address] * XR Lumbar Spine 2 or 3Vw (02/03/2025 12:30 PM CDT) Narrative [facility] [address] - 02/03/2025 12:30 PM CDT Please see progress note in Epic for results. Rex VALVERDE-C DIAGNOSTIC IMAGING ORDERABL ES Final Result Performing Organization Address [facility] Co de Phone Number [facility] [address] * XR Knee Right 3Vw (02/03/2025 11:54 AM CDT) Narrative [facility] [address] - 02/03/2025 11:54 AM CDT Please see progress note in Epic for results. Rex VALVERDE-Eryn DIAGNOSTIC IMAGING ORDERABL ES Final Result Performing Organization Address [facility] Co de Phone Number [facility] [address] from Last 3 Months Additional Health Concerns Infection Onset Date 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 03/15/2020 Insurance [facility] MANAGED MEDICARE ADV Advance Directives * Full Code (Latest Code Status on File) Date Activated Date Inactivated Comments 03/15/2020 5:30 AM 03/18/2020 5:47 PM * Full Code Date Activated Date Inactivated Comments 06/11/2019 10:10 PM 06/13/2019 3:14 PM * Full Code Date Activated Date Inactivated Comments 12/15/2017 2:10 PM 12/18/2017 2:18 PM Care Teams Kelp Cutter Relationship Specialty Start Date End Date Dano Han MD [address] [place] [address] PCP - General 04/03/20 [place] [address] [facility] [address] [place] [address] Orthopedic Surgery 10/30/17 [place] [address] [facility] [address] [place] [address] Professor Of Spanish Cardiovascular Disease 03/28/20 [place] [address] [facility] [address] [place] [address] Rheumatology 10/26/20
--- OUTSIDE RECORDS SUMMARY | 2025-03-25 14:28 | XMS_ITS | Encounter Summary ---
Author Organization [facility] Address [address] [facility] Attn: [place] [address] Care Team Providers Care Wardrobe Coordinator Name Role Phone Cory Ayers DO Primary Care Provider Encounter Details Date Type Department Care Team (Late st Contact Info) Description 10/06/1997 Outpatient Historical Conversion, History Hiram Trivedi MD [address] [place] [address] Social History Tobacco Use Types Packs/Day Years Used Date Smoking Tobacco: Never Assessed Comments Unknown Sex and Gender Information Value Date Recorded Sex Assigned at Not on file Legal Sex Female 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
--- OUTSIDE RECORDS SUMMARY | 2025-03-25 14:28 | XMS_ITS | Encounter Summary ---
Author Organization [facility] Address [address] [facility] Attn: Epic Prelude ADT [place] [address] Care Team Providers Care Injection Mold Technician Name Role Phone Cory Ayers DO Primary Care Provider Encounter Details Date Type Department Care Team (Late st Contact Info) Description 01/08/1994 Outpatient Historical Hiram Trivedi MD Replaced by [facility] [place] [address] Social History Tobacco Use Types Packs/Day Years Used Date Smoking Tobacco: Never Assessed Comments Unknown Sex and Gender Information Value Date Recorded Sex Assigned at Not on file Legal Sex Female 4:21 AM SIGN OUT CLERK Gender Identity Not on file Sexual Orientation Not on file documented as of this encounter Plan of Treatment Not on file documented as of this encounter Visit Diagnoses Not on filedocumented in this encounter Care Teams Injection Mold Technician Relationship Specialty Start Date End Date Cory Ayers DO PCP - General 07/27/15 documented as of this encounter
--- OUTSIDE RECORDS SUMMARY | 2025-03-25 14:28 | XMS_ITS | Encounter Summary ---
Author Organization [facility] Address [address] [place] [address] Care Team Providers Care Honeycomb Decapper Name Role Phone Cory Ayers DO Primary Care Provider Encounter Details Date Type Department Care Team (Late st Contact Info) Description 02/01/2000 Outpatient Historical [facility] Hiram Trivedi MD [address] [place] [address] Social History Tobacco Use Types Packs/Day Years Used Date Smoking Tobacco: Never Assessed Comments Unknown Sex and Gender Information Value Date Recorded Sex Assigned at Not on file Legal Sex Female 4:21 AM LINOLEUM LAYER APPRENTICE Gender Identity Not on file Sexual Orientation Not on file documented as of this encounter Plan of Treatment Not on file documented as of this encounter Visit Diagnoses Not on filedocumented in this encounter Care Teams Honeycomb Decapper Relationship Specialty Start Date End Date Cory Ayers DO PCP - General 07/27/15 documented as of this encounter
--- OUTSIDE RECORDS SUMMARY | 2025-03-25 14:28 | XMS_ITS | Encounter Summary ---
Author Organization [facility] Address [address] [place] [address] Care Team Providers Care Jewel Bearing Broacher Name Role Phone Cory Ayers DO Primary Care Provider Encounter Details Date Type Department Care Team (Late st Contact Info) Description 06/23/2001 Outpatient Historical [facility] Hiram Trivedi MD [address] [place] [address] Social History Tobacco Use Types Packs/Day Years Used Date Smoking Tobacco: Never Assessed Comments Unknown Sex and Gender Information Value Date Recorded Sex Assigned at Not on file Legal Sex Female 4:21 AM GENERAL CAR YARD SUPERVISOR Gender Identity Not on file Sexual Orientation Not on file documented as of this encounter Plan of Treatment Not on file documented as of this encounter Visit Diagnoses Not on filedocumented in this encounter Care Teams Jewel Bearing Broacher Relationship Specialty Start Date End Date oCry Ayers DO PCP - General 07/27/15 documented as of this encounter
--- OUTSIDE RECORDS SUMMARY | 2025-03-25 14:28 | XMS_ITS | Encounter Summary ---
Author Organization [facility] Address [address] [place] [address] Care Team Providers Care Practice Representative Name Role Phone Cory Ayers DO Primary Care Provider Encounter Details Date Type Department Care Team (Late st Contact Info) Description 07/26/2002 Inpatient Historical [facility] Antolin Modi MD [address] [facility] [address] [place] [address] POSTOP VAGINAL PROLAPSE (Primary Dx) Social History Tobacco Use Types Packs/Day Years Used Date Smoking Tobacco: Never Assessed Comments Unknown Sex and Gender Information Value Date Recorded Sex Assigned at Not on file Legal Sex Female 4:21 AM BENDING PRESS OPERATOR Gender Identity Not on file Sexual Orientation Not on file documented as of this encounter Plan of Treatment Not on file documented as of this encounter Visit Diagnoses Diagnosis 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
--- OUTSIDE RECORDS SUMMARY | 2025-03-25 14:28 | XMS_ITS | Encounter Summary ---
Author Organization [facility] Address [address] [facility] [place] [address] Care Team Providers Care Housing Management Representative Name Role Phone Darnell Raymond MD Unavailable Stefani Mulligan MD Unavailable [phone] Dano Han MD Primary Care Provider Amalia Gregory MD Unavailable [phone] Encounter Details Date Type Department Care Team (Late st Contact Info) Description 01/02/2023 Lab Requisition [facility] - DermPath Lab [address] [facility] [place] [phone] Parth Crain MD [address] [place] [address] Social History Tobacco Use Types Packs/Day Years Used Date Smoking Tobacco: Never Smokeless Tobacco: Never Alcohol Use Standard Drinks/Week Comments No 0 (1 standard drink = 0.6 oz pur e alcohol) Comments Unknown Sex and Gender Information Value Date Recorded Sex Assigned at Not on file Legal Sex Female 6:13 PM ASSOCIATE PATHOLOGIST Gender Identity Female 01/16/2021 10:27 AM [...] AM CDT) Case Report Dermatopathology Report Case: [id number] Authorizing Provider: Parth Crain MD Collected: 01/01/2023 12:00 AM Ordering Location: [facility] DermPath Lab Received: 01/02/2023 08:56 [...] specimen consists of two shaved biopsies measuring 87h78o9 and 6x6x1 mm. Jar 0. 3 5:48 [...] characteristic determined by the Dermatopathology Laboratory at [facility], directed by Dr. Maryam Mendoza. These tests need not be, and therefore are not, approved by the [place] Food and Drug Administration. The tests are used for clinical purposes. Billing Codes Specimen Charges Stain Charges 95631 1 3 5:48 PM CDT DERMATOPATHOLOGY LABORATORY Embedded Images 3 5:48 PM CDT DERMATOPATHOLOGY LABORATORY Pathology/Cytolog y TISSUE SPECIMEN FROM SKIN / Unknown 01/01/2023 01/02/2023 8:56 AM CDT Parth Crain MD LAB - PATHOLOGY/CYTOLOGY ORDERAB LES Final Result DERMATOPATHOLOGY LABORATORY [facility] Department of Dermatology [facility] Medicine [address] [place] [address], [address] [phone] documented in this encounter Visit Diagnoses Not on filedocumented in this encounter Additional Health Concerns Infection Onset Date Last Indicated Resolved Time 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 [address] [place] [address] Rheumatology 10/26/20 documented as of this encounter
--- OUTSIDE RECORDS SUMMARY | 2025-03-25 14:28 | XMS_ITS | Encounter Summary ---
Author Organization [facility] Address [address] [facility] [place] [address] Care Team Providers Care Edge Runner Name Role Phone Darnell Raymond MD Unavailable Stefani Mulligan MD Unavailable [phone] Dano Han MD Primary Care Provider Amalia Gregory MD Unavailable [phone] Encounter Details Date Type Department Care Team (Late st Contact Info) Description 12/06/2022 Lab Requisition [facility] Care DermPath Lab [address] [facility] [place] [address] Parth Crain MD [facility] [place] [address] Social History Tobacco Use Types Packs/Day Years Used Date Smoking Tobacco: Never Smokeless Tobacco: Never Alcohol Use Standard Drinks/Week Comments No 0 (1 standard drink = 0.6 oz pur e alcohol) Comments Unknown Sex and Gender Information Value Date Recorded Sex Assigned at Not on file Legal Sex Female 6:13 PM ARTIST BLACKSMITH Gender Identity Female 01/16/2021 10:27 AM CDT [...] AM CDT) Case Report Dermatopathology Report Case: [id number] Authorizing Provider: Parth Crain MD Collected: 12/05/2022 03:33 AM Ordering Location: [facility] DermPath Lab Received: 12/06/2022 [...] specimen consists of a shave biopsy measuring 65t2s2st, 3q0k0ll and 8h4l9lz. Jar 0. 3 12:30 PM CDT DERMATOPATHOLOGY [...] characteristic determined by the Dermatopathology Laboratory at [facility], directed by Dr. Maryam Mendoza. These tests need not be, and therefore are not, approved by the [place] Food and Drug Administration. The tests are used for clinical purposes. Billing Codes Specimen Charges Stain Charges 40354 1 3 12:30 PM CDT DERMATOPATHOLOGY LABORATORY Embedded Images 3 12:30 PM CDT DERMATOPATHOLOGY LABORATORY Pathology/Cytolo gy TISSUE SPECIMEN FROM SKIN / Unknown 12/05/2022 3:33 AM CDT 12/06/2022 6:35 AM CDT Parth Crain MD LAB - PATHOLOGY/CYTOLOGY ORDERAB LES Final Result DERMATOPATHOLOGY LABORATORY [facility] Department of Dermatology [address], [address] [phone] documented in this encounter Visit Diagnoses Not on filedocumented in this encounter Additional Health Concerns Infection Onset Date Last Indicated Resolved Time 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 [address] [place] [address] Numberer And Wirer Cardiovascular Disease 03/28/20 [place] [address] [facility] [address] [place] [address] Rheumatology 10/26/20 documented as of this encounter
--- OUTSIDE RECORDS SUMMARY | 2025-03-25 14:28 | XMS_ITS | Encounter Summary ---
Author Organization [facility] Address [address] [place] [address] Care Team Providers Care Pipe Welder Name Role Phone Cory Ayers DO Primary Care Provider Encounter Details Date Type Department Care Team (Late st Contact Info) Description 09/17/2002 Outpatient Historical [facility], [address] Antolin Modi MD [address] [place] [address] [address] [address] URIN TRACT INFECTION NOS (Primary Dx) Social History Tobacco Use Types Packs/Day Years Used Date Smoking Tobacco: Never Assessed Comments Unknown Sex and Gender Information Value Date Recorded Sex Assigned at Not on file Legal Sex Female 4:21 AM SALES REPRESENTATIVE SUPERVISOR Gender Identity Not on file Sexual Orientation Not on file documented as of this encounter Plan of Treatment Not on file documented as of this encounter Visit Diagnoses Diagnosis Urinary tract infection, site not specified- Primary documented in this encounter Care Teams Pipe Welder Relationship Specialty Start Date End Date Cory Ayers DO PCP - General 07/27/15 documented as of this encounter
--- OUTSIDE RECORDS SUMMARY | 2025-03-25 14:28 | XMS_ITS | Encounter Summary ---
Author Organization [facility] Address [address] [place] [address] Care Team Providers Care Shade Cutter Name Role Phone Cory Ayersian Primary Care [...] on file Legal Sex Female 4:21 AM GREASE MAKER Gender Identity Not on file Sexual [...] and non- Americans is available on the [facility] Intranet at: [email or web address] Select: Lab Policies and Procedures Select: Reference Ranges - GFR 03/27/2007 5:55 AM CDT [employer] CHEMISTRY ORDERABLES Edited Performing Organization Address City/[facility] de Phone Number INTERFACE SYSTEM Refer to clinic/hospital department * HEMOGLOBIN AND HEMATOCRIT (03/27/2007 5:55 AM CDT) HEMOGLOBIN 13.7 11.8 - 14.8 g/dL INTERFACE SYSTEM HEMATOCRIT 40.3 35.5 - 44.0 % INTERFACE SYSTEM 03/27/2007 5:55 AM CDT [employer] HEMATOLOGY ORDERABLES Edited Performing Organization Address City/State/[facility] Co de Phone Number INTERFACE SYSTEM Refer to clinic/hospital department documented in this encounter Visit Diagnoses Diagnosis Specified congenital anomalies of breast- Primary documented in this encounter Care Teams Shade Cutter Relationship Specialty Start Date End Date Cory Ayers DO PCP - General 07/27/15 documented as of this encounter
--- OUTSIDE RECORDS SUMMARY | 2025-03-25 14:28 | XMS_ITS | Encounter Summary ---
Author Organization [facility] Address [address] [place] [address] Care Team Providers Care Multiple Wire Sawyer Name Role Phone Cory Ayers DO [...] on file Legal Sex Female 4:21 AM DINING CAR STEWARD Gender Identity Not on file Sexual Orientation Not on file documented as of this encounter Plan of Treatment Not on file documented as of this encounter Visit Diagnoses Diagnosis Disorders of bursae and tendons in shoulder region, unspecified- Primary documented in this encounter Care Teams Multiple Wire Sawyer Relationship Specialty Start Date End Date Cory Ayers DO PCP - General 07/27/15 documented as of this encounter
--- OUTSIDE RECORDS SUMMARY | 2025-03-25 14:28 | XMS_ITS | Encounter Summary ---
Author Organization [facility] Address [address] [place] [address] Care Team Providers Care Health Education Director Name Role Phone Cory Ayers DO Primary Care Provider Encounter Details Date Type Department Care Team (Late st Contact Info) Description 09/11/2002 Outpatient Historical [facility] Antolin Modi MD [address] [facility] [address] [address] COMPLIC-URINARY TRACT (Primary Dx) Social History Tobacco Use Types Packs/Day Years Used Date Smoking Tobacco: Never Assessed Comments Unknown Sex and Gender Information Value Date Recorded Sex Assigned at Not on file Legal Sex Female 4:21 AM HEATING EQUIPMENT REPAIRER Gender Identity Not on file Sexual Orientation Not on file documented as of this encounter Plan of Treatment Not on file documented as of this encounter Visit Diagnoses Diagnosis Urinary complications- Primary documented in this encounter Care Teams Health Education Director Relationship Specialty Start Date End Date Cory Ayers DO PCP - General 07/27/15 documented as of this encounter
--- OUTSIDE RECORDS SUMMARY | 2025-03-25 14:28 | XMS_ITS | Encounter Summary ---
Author Organization [facility] Address [address] [place] [address] Care Team Providers Care Machine Sorter Name Role Phone Cory Ayers DO Primary Care Provider Encounter Details Date Type Department Care Team (Late st Contact Info) Description 10/29/1999 Outpatient Historical [facility] LAB,NON-PATIENT Hiram Trivedi MD [address] [place] [address] Social History Tobacco Use Types Packs/Day Years Used Date Smoking Tobacco: Never Assessed Comments Unknown Sex and Gender Information Value Date Recorded Sex Assigned at Not on file Legal Sex Female 4:21 AM HAULAGE ENGINE OPERATOR Gender Identity Not on file Sexual Orientation Not on file documented as of this encounter Plan of Treatment Not on file documented as of this encounter Visit Diagnoses Not on filedocumented in this encounter Care Teams Machine Sorter Relationship Specialty Start Date End Date Cory Ayers DO PCP - General 07/27/15 documented as of this encounter
--- OUTSIDE RECORDS SUMMARY | 2025-03-25 14:28 | XMS_ITS | Clinical Summary ---
Author Organization [facility] [place] Address [address] [place] [address] Care Team Providers Care Deputy Fire Marshal Name Role Phone Dano Han MD Primary [...] on file Legal Sex Female 3:34 AM POULTRY FARMER MEAT Gender Identity Not on file Sexual Orientation [...] of 2) 09/11/2020 07/17/2020 Influenza Vaccine (#1) 2025 0, 05/13/2019, 05/13/2019, Additional history exists Insurance MEDICARE [facility] MEDICARE [facility] Address: [address] [place] [address] [facility] MEDICARE ADVANTAGE Care Teams Deputy Fire Marshal Relationship Specialty Start Date End Date Dano Han MD PCP - General Family Practice 08/31/21
--- OUTSIDE RECORDS SUMMARY | 2025-03-25 14:28 | XMS_ITS | Encounter Summary ---
Author Organization [facility] Address [address] [place] [address] Care Team Providers Care Federal Judicial Law Clerk Name Role Phone Cory Ayers DO Primary Care Provider Encounter Details Date Type Department Care Team (Latest Contact Info) Description 09/23/2002 Outpatient Historical HIS CARDIOPULMONARY Antolin Modi MD [address] [facility] [address] [address] SWELLING OF LIMB (Primary Dx) Social History Tobacco Use Types Packs/Day Years Used Date Smoking Tobacco: Never Assessed Comments Unknown Sex and Gender Information Value Date Recorded Sex Assigned at Not on file Legal Sex Female 4:21 AM SEMICONDUCTOR DIES LOADER Gender Identity Not on file Sexual Orientation Not on file documented as of this encounter Plan of Treatment Not on file documented as of this encounter Visit Diagnoses Diagnosis Swelling of limb- Primary documented in this encounter Care Teams Federal Judicial Law Clerk Relationship Specialty Start Date End Date Cory Ayers DO PCP - General 07/27/15 documented as of this encounter
[2025-03-25 18:36] LABS: Hematocrit 45.2 % (37.0-47.0); Hemoglobin 14.2 g/dL (12.0-15.0); Immature Granulocyte Percent A 0.1 % (0-0.5); Lymphocytes Absolute Auto 1.34 K/mm3 (0.9-3.2); Mean Corpuscular HGB Conc 31.4 g/dl (32-36); Mean Corpuscular Hemoglobin 31.0 pg (26-34); Mean Corpuscular Volume 98.7 fl (80-100); Nucleated Red Blood Cells Absolute Auto 0.000 K/mm3 (0.0-0.012); Nucleated Red Blood Cells Perc 0.0 % (0.0-0.2); Platelet Count Result 189 k/mm3 (150-375); Red Blood Count 4.58 M/mm3 (4.2-5.4); White Blood Count 7.1 K/mm3 (4.5-10.0)
[2025-03-25 18:58] LABS: Non Pathogenic Casts 0-2
[2025-03-25 19:01] LABS: Add Urine Microscopic? YES; Appearance Urine Cloudy (Clear); Glucose Urine UA Negative (Negative); Leukocyte Esterase Ur 2+ LEU/UL (Negative); Nitrate Urine Positive (Negative); Specific Grav Ur 1.018 (1.001-1.035)
[2025-03-25 19:01] LABS: Alanine Aminotransferase 52 U/L (6-35); Albumin Level 3.7 g/dL (3.5-5.1); Alkaline Phosphatase 155 U/L (38-126); Anion Gap 8 mmol/L (4-12); Aspartate Amino Transferase 77 U/L (14-36); Bilirubin,Total 0.8 mg/dL (0.2-1.3); Blood Urea Nitrogen 28 mg/dL (7-17); Calcium 9.6 mg/dL (8.4-10.2); Carbon Dioxide 27 mmol/L (22-30); Chloride 105 mmol/L (98-107); Estimated Glomerular Filt Rate > 60; Glucose 127 mg/dL (65-110); Magnesium 1.8 mg/dL (1.6-2.3); Potassium 4.3 mmol/L (3.4-5.0); Sodium 140 mmol/L (137-145); Total Protein 6.5 g/dL (6.3-8.2)
== END 2025-03-25 14:27 | disposition home or self-care (01) ==
LOC: ANHGOSHLAB 14:26
PROVIDERS: PCP Family Medicine; Visit Provider Nurse Practitioner Family
DX: I10 Essential (primary) hypertension (principal); Z87.440 Personal history of urinary (tract) infections
CPT/HCPCS: 36415; 80053; 81001; 83735; 85025; 87086

== ENCOUNTER 2025-04-05 08:46 | Outpatient (CLI) | payer MEDICARE, SELFPAY ==
--- OUTSIDE RECORDS SUMMARY | 2025-04-05 08:54 | XMS_ITS | Encounter Summary ---
Author Organization [facility] Address [address] [place] [address] Care Team Providers Care Director Of Financial Reporting Name Role Phone Cory Ayers DO Primary Care Provider Darnell Raymond MD Unavailable Esthela Barksdale MD Primary Care Provider Un available Cory Ayers DO Primary Care Provider Cory Ayers DO Primary Care Provider Dano Han MD Primary Care Provider Stefani Mulligan MD Unavailable [phone] Cory Ayers DO Primary Care Provider [phone] Dano Han MD Primary Care Provider Amalia Gregory MD Unavailable [phone] Encounter Details Date Type Department Care Team (Late st Contact Info) Description 11/26/2017 [facility] Outpatient Visit [facility] [address] [place] [address] [place] [address] [address] Social History Tobacco Use Types Packs/Day Years Used Date Smoking Tobacco: Never Smokeless Tobacco: Never Alcohol Use Standard Drinks/Week Comments No 0 (1 standard drink = 0.6 oz pur e alcohol) Comments Unknown Sex and Gender Information Value Date Recorded Sex Assigned at Not on file Legal Sex Female 6:13 PM DISPLAY DIRECTOR Gender Identity Female 01/16/2021 10:27 AM CDT [...] documented as of this encounter Care Teams Director Of Financial Reporting Relationship Specialty Start Date End Date Cory Ayers DO PCP - General Internal Medicine 10/30/17 06/10/19 Esthela Barksdale MD [address] [place] [address] PCP - General Family Medicine 07/07/19 01/16/20 Cory Ayers DO [address] [place] [address] PCP - General 01/17/20 03/19/20 Cory Ayers DO [address] [place] [address] PCP - General 03/23/20 03/27/20 Dano Han MD [address] [place] [address] PCP - General Family Medicine 03/28/20 03/30/20 Cory Ayers DO [address] [place] [place] [address] PCP - General 03/31/20 04/02/20 Dano Han MD [address] [place] [address] PCP - General 04/03/20 [place] [address] [place] [address] Orthopedic Surgery 10/30/17 [place] [address] [place] [address] Client Service Consultant Cardiovascular Disease 03/28/20 [place] [address] [facility] [address] [place] [address] Rheumatology 10/26/20 documented as of this encounter
--- OUTSIDE RECORDS SUMMARY | 2025-04-05 08:54 | XMS_ITS | Encounter Summary ---
Author Organization [facility] Address [address] [place] [address] Care Team Providers Care Stretching Machine Operator Name Role Phone Cory Ayers DO Primary Care Provider Encounter Details Date Type Department Care Team (Late st Contact Info) Description 06/23/2001 Outpatient Historical HIS G [facility] INTERNISTS Hiram Trivedi MD [address] [place] [address] Social History Tobacco Use Types Packs/Day Years Used Date Smoking Tobacco: Never Assessed Comments Unknown Sex and Gender Information Value Date Recorded Sex Assigned at Not on file Legal Sex Female 4:21 AM INSTRUCTOR ADJUNCT PHARMACY TECHNICIAN Gender Identity Not on file Sexual Orientation Not on file documented as of this encounter Plan of Treatment Not on file documented as of this encounter Visit Diagnoses Not on filedocumented in this encounter Care Teams Stretching Machine Operator Relationship Specialty Start Date End Date Cory Ayers DO PCP - General 07/27/15 documented as of this encounter
--- OUTSIDE RECORDS SUMMARY | 2025-04-05 08:54 | XMS_ITS | Encounter Summary ---
Author Organization [facility] Address [address] [place] [address] Care Team Providers Care Lugger Name Role Phone Cory Ayers DO Primary Care Provider Encounter Details Date Type Department Care Team (Latest Contact Info) Description 09/23/2002 Outpatient Historical HIS CARDIOPULMONARY Antolin Modi MD [address] [facility] [address] [address] SWELLING OF LIMB (Primary Dx) Social History Tobacco Use Types Packs/Day Years Used Date Smoking Tobacco: Never Assessed Comments Unknown Sex and Gender Information Value Date Recorded Sex Assigned at Not on file Legal Sex Female 4:21 AM NAILING MACHINE OPERATOR Gender Identity Not on file Sexual Orientation Not on file documented as of this encounter Plan of Treatment Not on file documented as of this encounter Visit Diagnoses Diagnosis Swelling of limb- Primary documented in this encounter Care Teams Lugger Relationship Specialty Start Date End Date Cory Ayers DO PCP - General 07/27/15 documented as of this encounter
--- OUTSIDE RECORDS SUMMARY | 2025-04-05 08:54 | XMS_ITS | Encounter Summary ---
Author Organization [facility] Address [address] [facility] [place] [address] Care Team Providers Care Assistant Product Manager Name Role Phone Darnell Raymond MD Unavailable Stefani Mulligan MD Unavailable [phone] Dano Han MD Primary Care Provider Amalia Gregory MD Unavailable [phone] Encounter Details Date Type Department Care Team (Late st Contact Info) Description 01/02/2023 Lab Requisition [facility] - DermPath Lab [address] [facility] [place] [id number] Parth Crain MD [address] [place] [address] Social History Tobacco Use Types Packs/Day Years Used Date Smoking Tobacco: Never Smokeless Tobacco: Never Alcohol Use Standard Drinks/Week Comments No 0 (1 standard drink = 0.6 oz pur e alcohol) Comments Unknown Sex and Gender Information Value Date Recorded Sex Assigned at Not on file Legal Sex Female 6:13 PM BARKING MACHINE FEEDER Gender Identity Female 01/16/2021 10:27 AM CDT [...] AM CDT) Case Report Dermatopathology Report Case: [id number] Authorizing Provider: Parth Crain MD Collected: 01/01/2023 12:00 AM Ordering Location: [facility] D[facility] Lab Received: 01/02/2023 08:56 AM Pathologist: [...] specimen consists of two shaved biopsies measuring 29o81q7 and 6x6x1 mm. Jar 0. 3 5:48 [...] characteristic determined by the Dermatopathology Laboratory at [facility], directed by Dr. Maryam Mendoza. These tests need not be, and therefore are not, approved by the [place] Food and Drug Administration. The tests are used for clinical purposes. Billing Codes Specimen Charges Stain Charges 09644 1 3 5:48 PM CDT DERMATOPATHOLOGY LABORATORY Embedded Images 3 5:48 PM CDT DERMATOPATHOLOGY LABORATORY Pathology/Cytolog y TISSUE SPECIMEN FROM SKIN / Unknown 01/01/2023 01/02/2023 8:56 AM CDT Parth Crain MD LAB - PATHOLOGY/CYTOLOGY ORDERAB LES Final Result DERMATOPATHOLOGY LABORATORY [facility] Department of Dermatology [facility] Medicine [address] [place] [address], [address] [phone] documented in this encounter Visit Diagnoses Not on filedocumented in this encounter Additional Health Concerns Infection Onset Date Last Indicated Resolved Time 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 03/15/2020 documented as of this encounter Care Teams Assistant Product Manager Relationship Specialty Start Date End Date Dano Han MD [address] [place] [address] PCP - General 04/03/20 [place] [address] [address] [address] Orthopedic Surgery 10/30/17 [place] [address] [facility] [address] [place] [address] Marketing Production Coordinator Cardiovascular Disease 03/28/20 [place] [address] [facility] [address] [place] [address] Rheumatology 10/26/20 documented as of this encounter
--- OUTSIDE RECORDS SUMMARY | 2025-04-05 08:54 | XMS_ITS | Clinical Summary ---
Author Organization [facility] Address [address] [facility] [place] [address] Care Team Providers Care Waterway Traffic Checker Name Role Phone Darnell aRymond MD Unavailable [phone] Stefani Mulligan MD Unavailable [phone] Dano Han MD Primary Care Provider Amalia Gregory MD Unavailable [phone] Source Comments [facility],non-owned Affiliates and Associated Physician Practices is amultiple site organization consisting of ambulatory clinics and hospital sitesin [place], [place], [place] and [place]. This disclosure is being madepursuant to the Care Everywhere program and may not contain all information available regarding this patient. Last updated 18.[facility] [place] Allergies No known active allergies Medications * [...] Description 02/03/2025 12:30 PM CDT Ancillary Procedure [facility] Orthopedics - Radiology [address] [place] [phone] Rex Gresham, SUKUMAR Presence of right artificial knee joint 02/03/2025 12:25 PM CDT Ancillary Procedure [facility] Orthopedics - Radiology [address] [place] [phone] Rex Gresham, SUKUMAR Presence of right artificial knee joint 02/03/2025 11:50 AM CDT Office Visit [facility] Orthopedics [address] [place] [address], [address] [place] [address] Rex Gresham PA-C Presence of right artificial knee joint (Primary Dx); Lumbar spondylosis; Primary osteoarthritis of right hip 02/03/2025 11:40 AM CDT Ancillary Procedure [facility] Orthopedics - Radiology [address] [place] [phone] Rex Gresham PA-C Presence of right artificial [...] on file Legal Sex Female 6:13 PM BUSINESS OPERATIONS ANALYST Gender Identity Female 01/16/2021 10:27 AM CDT Sexual Orientation Not on file Last Filed Vital Signs Vital Sign Reading Time Taken Comments Blood Pressure 159/91 10/08/2023 10:15 AM BUSINESS OPERATIONS ANALYST Pulse 76 10/08/2023 10:15 AM BUSINESS OPERATIONS ANALYST Temperature 36.2 C (97.1 F) 07/12/2021 8:47 AM BUSINESS OPERATIONS ANALYST Respiratory Rate 18 03/26/2021 10:24 AM CDT Oxygen Saturation 98% 10/26/2020 11:25 AM CDT Inhaled Oxygen Concentration - - Weight 70.3 kg (155 lb) 10/08/2023 10:15 AM BUSINESS OPERATIONS ANALYST Height 157.5 cm (5' 2) 10/08/2023 10:15 AM BUSINESS OPERATIONS ANALYST Body Mass Index 28.35 10/08/2023 10:15 AM BUSINESS OPERATIONS ANALYST Plan of Treatment Health Maintenance Due Date [...] this topic Medical Devices Implanted Type Area Transfer Man Device Identifier Shelf Expiration Date Model / Serial / Lot Cmnt Bone Cblt 40gm Hvisc Strl Implanted:Qty: 1 on 12/15/2017 by Darnell Raymond MD at [facility] Right: Knee [employer] 06/10/2019 [id number] / / [id number] Cmpnt Fem Kn Rt Cr Cmnt Prm Vngrd Intlk Implanted:Qty: 1 on 12/15/2017 by Darnell Raymond MD at [facility] Right: Knee [employer] 09/14/2027 [id number] / / [id number] Tray Tib 71mm Kn Cocr I Beam Implanted:Qty: 1 on 12/15/2017 by Darnell Raymond MD at [facility] Right: Knee [employer] 08/07/2027 [id number] / / [id number] Cmpnt Ptlr 28mm 1 Pg Wire Ascnt Arcm Kn Implanted:Qty: 1 on 12/15/2017 by Darnell Raymond MD at [facility] Right: Knee [employer] 09/01/2022 [id number] / / [id number] Vngrd Arcm Kn Ant Stab Implanted:Qty: 1 on 12/15/2017 by Darnell Raymond MD at [facility] Right: Knee [employer] 09/04/2022 [id number] / / [id number] Procedures Procedure Name Priority Date/Time Associated Diagnosis [...] or 2Vw (02/03/2025 12:30 PM CDT) Narrative [facility] [address] - 02/03/2025 12:30 PM CDT Please see progress note in Epic for results. Rex VALVERDE-C DIAGNOSTIC IMAGING ORDERABL ES Final Result Performing Organization Address [facility] de Phone Number [facility] [address] * XR Lumbar Spine 2 or 3Vw (02/03/2025 12:30 PM CDT) Narrative [facility] [address] - 02/03/2025 12:30 PM CDT Please see progress note in Epic for results. Rex VALVERDE-C DIAGNOSTIC IMAGING ORDERABL ES Final Result Performing Organization Address [facility] Co de Phone Number [facility] [address] * XR Knee Right 3Vw (02/03/2025 11:54 AM CDT) Narrative [facility] [address] - 02/03/2025 11:54 AM CDT Please see progress note in Epic for results. Rex VALVERDE-Eryn DIAGNOSTIC IMAGING ORDERABL ES Final Result Performing Organization Address 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 03/15/2020 Insurance [facility] MANAGED MEDICARE ADV Advance Directives * Full Code (Latest Code Status on File) Date Activated Date Inactivated Comments 03/15/2020 5:30 AM 03/18/2020 5:47 PM * Full Code Date Activated Date Inactivated Comments 06/11/2019 10:10 PM 06/13/2019 3:14 PM * Full Code Date Activated Date Inactivated Comments 12/15/2017 2:10 PM 12/18/2017 2:18 PM Care Teams Waterway Traffic Checker Relationship Specialty Start Date End Date Dano Han MD [address] [place] [address] PCP - General 04/03/20 [place] [address] [facility] [address] [place] [address] Orthopedic Surgery 10/30/17 [place] [address] [facility] [address] [place] [address] Pearl Fisherman Cardiovascular Disease 03/28/20 [place] [address] [facility] [address] [place] [address] Rheumatology 10/26/20
--- OUTSIDE RECORDS SUMMARY | 2025-04-05 08:54 | XMS_ITS | Clinical Summary ---
Author Organization [facility] [place] Address [address] [place] [address] Care Team Providers Care Supply Chain Generalist Name Role Phone Dano Han MD Primary [...] on file Legal Sex Female 3:34 AM LINER CHECKER Gender Identity Not on file Sexual Orientation [...] 05/13/2019, 05/13/2019, Additional history exists Insurance MEDICARE [facility] MEDICARE [facility] MEDICARE ADVANTAGE Care Teams Supply Chain Generalist Relationship Specialty Start Date End Date Dano Han MD PCP - General Family Practice 08/31/21
--- OUTSIDE RECORDS SUMMARY | 2025-04-05 08:54 | XMS_ITS | Encounter Summary ---
Author Organization [facility] Address [address] [place] [address] Care Team Providers Care Yoke Presser Name Role Phone Cory Ayers DO Primary Care Provider Encounter Details Date Type Department Care Team (Late st Contact Info) Description 10/29/1999 Outpatient Historical HIS G [facility] INTERNISTS Hiram Trivedi MD [facility] [place] [address] Social History Tobacco Use Types Packs/Day Years Used Date Smoking Tobacco: Never Assessed Comments Unknown Sex and Gender Information Value Date Recorded Sex Assigned at Not on file Legal Sex Female 4:21 AM COUNTER TOP MAKER Gender Identity Not on file Sexual Orientation Not on file documented as of this encounter Plan of Treatment Not on file documented as of this encounter Visit Diagnoses Not on filedocumented in this encounter Care Teams Yoke Presser Relationship Specialty Start Date End Date Cory Ayers DO PCP - General 07/27/15 documented as of this encounter
--- OUTSIDE RECORDS SUMMARY | 2025-04-05 08:54 | XMS_ITS | Encounter Summary ---
Author Organization [facility] Address [address] [place] [address] Care Team Providers Care Media Center Director School Name Role Phone Cory Ayers DO Primary Care Provider Encounter Details Date Type Department Care Team (Late st Contact Info) Description 07/12/2002 Outpatient Historical [facility] Support Serv. (Adt Cardiology-[facility]) [address] [place] [phone] Darnell Hernandez Social History Tobacco Use Types Packs/Day Years Used Date Smoking Tobacco: Never Assessed Comments Unknown Sex and Gender Information Value Date Recorded Sex Assigned at Not on file Legal Sex Female 4:21 AM JUNIOR SALES ASSISTANT Gender Identity Not on file Sexual Orientation Not on file documented as of this encounter Plan of Treatment Not on file documented as of this encounter Visit Diagnoses Not on filedocumented in this encounter Care Teams Media Center Director School Relationship Specialty Start Date End Date Cory Ayers DO PCP - General 07/27/15 documented as of this encounter
--- OUTSIDE RECORDS SUMMARY | 2025-04-05 08:54 | XMS_ITS | Clinical Summary ---
Author Organization [facility] Address [address] [facility] [address] Phone Care Team Providers Care Filter Screen Cleaner Name Role Phone AgapitoCory molina Alvarez Primary [...] on file Legal Sex Female 4:21 AM INFORMATICA MDM ARCHITECT Gender Identity Not on file Sexual [...] series) 2014 INFLUENZA VACCINE (#1) 2025 [place] [address] MEDICARE PART A AND B [employer] PPO Care Teams Filter Screen Cleaner Relationship Specialty Start Date End Date Cory Ayers DO PCP - General 07/27/15
--- OUTSIDE RECORDS SUMMARY | 2025-04-05 08:54 | XMS_ITS | Encounter Summary ---
Author Organization [facility] Address [address] [place] [address] Care Team Providers Care Nuclear Officer Name Role Phone Cory Ayers DO [...] on file Legal Sex Female 4:21 AM BUSINESS PROCESS EXPERT Gender Identity Not on file Sexual Orientation Not on file documented as of this encounter Plan of Treatment Not on file documented as of this encounter Visit Diagnoses Diagnosis Disorders of bursae and tendons in shoulder region, unspecified- Primary documented in this encounter Care Teams Nuclear Officer Relationship Specialty Start Date End Date Cory Ayers DO PCP - General 07/27/15 documented as of this encounter
--- OUTSIDE RECORDS SUMMARY | 2025-04-05 08:54 | XMS_ITS | Encounter Summary ---
Author Organization [facility] Address [address] [facility] Attn: Epic Prelude ADT [place] [address] Care Team Providers Care Construction Foreman Name Role Phone Cory Ayers DO Primary Care Provider Encounter Details Date Type Department Care Team (Late st Contact Info) Description 01/08/1994 Outpatient Historical Hiram Trivedi MD [facility] [place] [address] Social History Tobacco Use Types Packs/Day Years Used Date Smoking Tobacco: Never Assessed Comments Unknown Sex and Gender Information Value Date Recorded Sex Assigned at Not on file Legal Sex Female 4:21 AM MARKETING COORDINATOR Gender Identity Not on file Sexual Orientation Not on file documented as of this encounter Plan of Treatment Not on file documented as of this encounter Visit Diagnoses Not on filedocumented in this encounter Care Teams Construction Foreman Relationship Specialty Start Date End Date Cory Ayers DO PCP - General 07/27/15 documented as of this encounter
--- OUTSIDE RECORDS SUMMARY | 2025-04-05 08:54 | XMS_ITS | Encounter Summary ---
Author Organization [facility] Address [address] [place] [address] Care Team Providers Care Geothermal Hvac Technician Name Role Phone Cory Ayers DO Primary Care Provider Encounter Details Date Type Department Care Team (Late st Contact Info) Description 07/26/2002 Inpatient Historical [facility] Antolin Modi MD [address] [facility] [address] [place] [address] POSTOP VAGINAL PROLAPSE (Primary Dx) Social History Tobacco Use Types Packs/Day Years Used Date Smoking Tobacco: Never Assessed Comments Unknown Sex and Gender Information Value Date Recorded Sex Assigned at Not on file Legal Sex Female 4:21 AM SENIOR ENTERPRISE ARCHITECT Gender Identity Not on file Sexual Orientation Not on file documented as of this encounter Plan of Treatment Not on file documented as of this encounter Visit Diagnoses Diagnosis 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
--- OUTSIDE RECORDS SUMMARY | 2025-04-05 08:54 | XMS_ITS | Encounter Summary ---
Author Organization [facility] Address [address] [facility] [place] [address] Care Team Providers Care Clinical Researcher Name Role Phone Darnlel Raymond MD Unavailable Stefani Mulligan MD Unavailable [phone] Dano Han MD Primary Care Provider Amalia Gregory MD Unavailable [phone] Encounter Details Date Type Department Care Team (Late st Contact Info) Description 12/06/2022 Lab Requisition [facility] Care DermPath Lab [address] [facility] [place] [address] Parth Crain MD [facility] [place] [address] Social History Tobacco Use Types Packs/Day Years Used Date Smoking Tobacco: Never Smokeless Tobacco: Never Alcohol Use Standard Drinks/Week Comments No 0 (1 standard drink = 0.6 oz pur e alcohol) Comments Unknown Sex and Gender Information Value Date Recorded Sex Assigned at Not on file Legal Sex Female 6:13 PM MECHANICAL SPECIALIST Gender Identity Female 01/16/2021 10:27 AM [...] AM CDT) Case Report Dermatopathology Report Case: [id number] Authorizing Provider: Parth Crain MD Collected: 12/05/2022 03:33 AM Ordering Location: [facility] DermPath Lab Received: 12/06/2022 06:35 AM Pathologist: [...] specimen consists of a shave biopsy measuring [id number], [id number] and [id number]. Jar 0. 3 12:30 PM CDT DERMATOPATHOLOGY [...] characteristic determined by the Dermatopathology Laboratory at [facility], directed by Dr. Maryam Mendoza. These tests need not be, and therefore are not, approved by the [place] Food and Drug Administration. The tests are used for clinical purposes. Billing Codes Specimen Charges Stain Charges 68389 1 3 12:30 PM CDT DERMATOPATHOLOGY LABORATORY Embedded Images 3 12:30 PM CDT DERMATOPATHOLOGY LABORATORY Pathology/Cytolo gy TISSUE SPECIMEN FROM SKIN / Unknown 12/05/2022 3:33 AM CDT 12/06/2022 6:35 AM CDT Parth Crain MD LAB - PATHOLOGY/CYTOLOGY ORDERAB LES Final Result DERMATOPATHOLOGY LABORATORY [facility] Department of Dermatology [address], [address] Floor [address] [phone] documented in this encounter Visit Diagnoses Not on filedocumented in this encounter Additional Health Concerns Infection Onset Date Last Indicated Resolved Time 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 [address] [place] [address] Rheumatology 10/26/20 documented as of this encounter
--- OUTSIDE RECORDS SUMMARY | 2025-04-05 08:54 | XMS_ITS | Encounter Summary ---
Author Organization [employer] Address [address] [place] [address] Care Team Providers Care Sql Consultant Name Role Phone Cory Ayers DO Primary Care Provider Encounter Details Date Type Department Care Team (Late st Contact Info) Description 09/11/2002 Outpatient Historical [facility] Antolin Modi MD [address] [facility] [address] [address] COMPLIC-URINARY TRACT (Primary Dx) Social History Tobacco Use Types Packs/Day Years Used Date Smoking Tobacco: Never Assessed Comments Unknown Sex and Gender Information Value Date Recorded Sex Assigned at Not on file Legal Sex Female 4:21 AM PORTRAIT STUDIO PHOTOGRAPHER Gender Identity Not on file Sexual Orientation Not on file documented as of this encounter Plan of Treatment Not on file documented as of this encounter Visit Diagnoses Diagnosis Urinary complications- Primary documented in this encounter Care Teams Sql Consultant Relationship Specialty Start Date End Date Cory Ayers DO PCP - General 07/27/15 documented as of this encounter
--- OUTSIDE RECORDS SUMMARY | 2025-04-05 08:54 | XMS_ITS | Encounter Summary ---
Author Organization [facility] Address [address] [place] [address] Care Team Providers Care Equipment Maintenance Supervisor Name Role Phone Cory Ayers DO Primary Care Provider Encounter Details Date Type Department Care Team (Late st Contact Info) Description 10/29/1999 Outpatient Historical [facility] LAB,NON-PATIENT Hiram Trivedi MD [address] [place] [address] Social History Tobacco Use Types Packs/Day Years Used Date Smoking Tobacco: Never Assessed Comments Unknown Sex and Gender Information Value Date Recorded Sex Assigned at Not on file Legal Sex Female 4:21 AM CONSULTANT INTERN Gender Identity Not on file Sexual Orientation Not on file documented as of this encounter Plan of Treatment Not on file documented as of this encounter Visit Diagnoses Not on filedocumented in this encounter Care Teams Equipment Maintenance Supervisor Relationship Specialty Start Date End Date Cory Ayers DO PCP - General 07/27/15 documented as of this encounter
--- OUTSIDE RECORDS SUMMARY | 2025-04-05 08:54 | XMS_ITS | Encounter Summary ---
Author Organization [facility] Address [address] [place] [address] Care Team Providers Care Telegraph Operator Name Role Phone Cory Ayers DO Primary Care Provider Encounter Details Date Type Department Care Team (Latest Contact Info) Description 05/09/1999 Outpatient Historical [facility] [place] [address] [facility] [address] Localized adiposity (Primary Dx) Social History Tobacco Use Types Packs/Day Years Used Date Smoking Tobacco: Never Assessed Comments Unknown Sex and Gender Information Value Date Recorded Sex Assigned at Not on file Legal Sex Female 4:21 AM VICE PRESIDENT COMPLIANCE Gender Identity Not on file Sexual Orientation Not on file documented as of this encounter Plan of Treatment Not on file documented as of this encounter Visit Diagnoses Diagnosis Localized adiposity- Primary documented in this encounter Care Teams Telegraph Operator Relationship Specialty Start Date End Date Cory Ayers DO PCP - General 07/27/15 documented as of this encounter
--- OUTSIDE RECORDS SUMMARY | 2025-04-05 08:54 | XMS_ITS | Encounter Summary ---
Author Organization [facility] Address [address] [place] [address] Care Team Providers Care Supervisor Burling And Joining Name Role Phone Cory Ayers DO Primary Care Provider Encounter Details Date Type Department Care Team (Late st Contact Info) Description 09/17/2002 Outpatient Historical [facility] LAB, [address] Antolin Modi MD [address] [place] [address] [address] [address] URIN TRACT INFECTION NOS (Primary Dx) Social History Tobacco Use Types Packs/Day Years Used Date Smoking Tobacco: Never Assessed Comments Unknown Sex and Gender Information Value Date Recorded Sex Assigned at Not on file Legal Sex Female 4:21 AM CIRCULAR TANK COOPER Gender Identity Not on file Sexual Orientation Not on file documented as of this encounter Plan of Treatment Not on file documented as of this encounter Visit Diagnoses Diagnosis Urinary tract infection, site not specified- Primary documented in this encounter Care Teams Supervisor Burling And Joining Relationship Specialty Start Date End Date Cory Ayers DO PCP - General 07/27/15 documented as of this encounter
--- OUTSIDE RECORDS SUMMARY | 2025-04-05 08:54 | XMS_ITS | Encounter Summary ---
Author Organization [facility] Address [address] [place] [address] Care Team Providers Care Psychiatric Technician Name Role Phone Cory Ayers DO Primary Care Provider Encounter Details Date Type Department Care Team (Late st Contact Info) Description 10/06/2002 Outpatient Historical HIS MRI DEPT [facility] [place], [place] [address] [facility] [address] [place] [address] JOINT PAIN-L/LEG (Primary Dx) Social History Tobacco Use Types Packs/Day Years Used Date Smoking Tobacco: Never Assessed Comments Unknown Sex and Gender Information Value Date Recorded Sex Assigned at Not on file Legal Sex Female 4:21 AM ASH WORKER Gender Identity Not on file Sexual Orientation Not on file documented as of this encounter Plan of Treatment Not on file documented as of this encounter Visit Diagnoses Diagnosis Pain in joint, lower leg- Primary documented in this encounter Care Teams Psychiatric Technician Relationship Specialty Start Date End Date Cory Ayers DO PCP - General 07/27/15 documented as of this encounter
--- OUTSIDE RECORDS SUMMARY | 2025-04-05 08:54 | XMS_ITS | Encounter Summary ---
Author Organization [facility] Address [address] [facility] Attn: Epic Prelude ADT [place] [address] Care Team Providers Care Resource Agent Name Role Phone Cory Ayers DO Primary Care Provider Encounter Details Date Type Department Care Team (Late st Contact Info) Description 11/26/1989 Outpatient Historical Hiram Trivedi MD [facility] [place] [address] Social History Tobacco Use Types Packs/Day Years Used Date Smoking Tobacco: Never Assessed Comments Unknown Sex and Gender Information Value Date Recorded Sex Assigned at Not on file Legal Sex Female 4:21 AM BPO SPECIALIST Gender Identity Not on file Sexual Orientation Not on file documented as of this encounter Plan of Treatment Not on file documented as of this encounter Visit Diagnoses Not on filedocumented in this encounter Care Teams Resource Agent Relationship Specialty Start Date End Date Cory Ayers DO PCP - General 07/27/15 documented as of this encounter
--- OUTSIDE RECORDS SUMMARY | 2025-04-05 08:54 | XMS_ITS | Encounter Summary ---
Author Organization [facility] Address [address] [place] [address] Care Team Providers Care Stumper Feller Name Role Phone Cory Ayers DO Primary Care Provider Encounter Details Date Type Department Care Team (Late st Contact Info) Description 02/01/2000 Outpatient Historical HIS G [facility] Hiram Trivedi MD [address] [place] [address] Social History Tobacco Use Types Packs/Day Years Used Date Smoking Tobacco: Never Assessed Comments Unknown Sex and Gender Information Value Date Recorded Sex Assigned at Not on file Legal Sex Female 4:21 AM TOE PUNCHER Gender Identity Not on file Sexual Orientation Not on file documented as of this encounter Plan of Treatment Not on file documented as of this encounter Visit Diagnoses Not on filedocumented in this encounter Care Teams Stumper Feller Relationship Specialty Start Date End Date Cory Ayers DO PCP - General 07/27/15 documented as of this encounter
--- OUTSIDE RECORDS SUMMARY | 2025-04-05 08:54 | XMS_ITS | Encounter Summary ---
Author Organization [facility] Address [address] [facility] Attn: [place] [address] Care Team Providers Care Commercial Credit Head Name Role Phone Cory Ayers DO Primary Care Provider Encounter Details Date Type Department Care Team (Late st Contact Info) Description 10/06/1997 Outpatient Historical Conversion, History Hiram Trivedi MD [address] [place] [address] Social History Tobacco Use Types Packs/Day Years Used Date Smoking Tobacco: Never Assessed Comments Unknown Sex and Gender Information Value Date Recorded Sex Assigned at Not on file Legal Sex Female 4:21 AM SENIOR COMPUTER SPECIALIST Gender Identity Not on file Sexual Orientation Not on file documented as of this encounter Plan of Treatment Not on file documented as of this encounter Visit Diagnoses Not on filedocumented in this encounter Care Teams Commercial Credit Head Relationship Specialty Start Date End Date Cory Ayers DO PCP - General 07/27/15 documented as of this encounter
--- OUTSIDE RECORDS SUMMARY | 2025-04-05 08:54 | XMS_ITS | Encounter Summary ---
Author Organization [facility] Address [address] [place] [address] Care Team Providers Care Manager Appointment Name Role Phone Cory Ayersian Primary Care [...] on file Legal Sex Female 4:21 AM REPORTING PROCESS CONSULTANT Gender Identity Not on file Sexual [...] and non- Americans is available on the [facility] Intranet at: [email or web address] Select: Lab Policies and Procedures Select: Reference Ranges - GFR 03/27/2007 5:55 AM CDT Safe [employer] CHEMISTRY ORDERABLES Edited Performing Organization Address City/[facility] de Phone Number INTERFACE SYSTEM Refer to clinic/hospital department * HEMOGLOBIN AND HEMATOCRIT (03/27/2007 5:55 AM CDT) HEMOGLOBIN 13.7 11.8 - 14.8 g/dL INTERFACE SYSTEM HEMATOCRIT 40.3 35.5 - 44.0 % INTERFACE SYSTEM 03/27/2007 5:55 AM CDT Application [employer] HEMATOLOGY ORDERABLES Edited Performing Organization Address City/State/[facility] Co de Phone Number INTERFACE SYSTEM Refer to clinic/hospital department documented in this encounter Visit Diagnoses Diagnosis Specified congenital anomalies of breast- Primary documented in this encounter Care Teams Manager Appointment Relationship Specialty Start Date End Date Cory Ayers DO PCP - General 07/27/15 documented as of this encounter
[2025-04-05 14:49] LABS: Alanine Aminotransferase 55 U/L (6-35); Albumin Level 3.3 g/dL (3.5-5.1); Alkaline Phosphatase 138 U/L (38-126); Anion Gap 7 mmol/L (4-12); Aspartate Amino Transferase 90 U/L (14-36); Bilirubin,Total 0.7 mg/dL (0.2-1.3); Blood Urea Nitrogen 21 mg/dL (7-17); Calcium 9.6 mg/dL (8.4-10.2); Carbon Dioxide 25 mmol/L (22-30); Chloride 105 mmol/L (98-107); Estimated Glomerular Filt Rate > 60; Glucose 154 mg/dL (65-110); Potassium 4.1 mmol/L (3.4-5.0); Sodium 137 mmol/L (137-145); Total Protein 5.8 g/dL (6.3-8.2)
== END 2025-04-05 08:47 | disposition home or self-care (01) ==
LOC: ANHGOSHLAB 08:47
PROVIDERS: PCP Family Medicine; Visit Provider Nurse Practitioner Family
DX: R74.8 Abnormal levels of other serum enzymes (principal); N39.0 Urinary tract infection, site not specified; R31.9 Hematuria, unspecified
CPT/HCPCS: 36415; 80053

== ENCOUNTER 2025-04-07 10:47 | Outpatient (CLI) | payer MEDICARE, SELFPAY ==
--- OUTSIDE RECORDS SUMMARY | 2025-04-07 10:53 | XMS_ITS | Encounter Summary ---
Author Organization [facility] Address 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
--- OUTSIDE RECORDS SUMMARY | 2025-04-07 10:53 | XMS_ITS | Clinical Summary ---
Author Organization [facility] Address [address] [facility] 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
--- OUTSIDE RECORDS SUMMARY | 2025-04-07 10:53 | XMS_ITS | Encounter Summary ---
Author Organization [facility] Address [address] [place] [address] Care Team Providers Care Granite Setter Name Role Phone Cory Ayers DO Primary Care Provider Encounter Details Date Type Department Care Team (Late st Contact Info) Description 10/06/2002 Outpatient Historical HIS MRI DEPT [facility], [place] [address] [facility] [address] [place] [address] JOINT PAIN-L/LEG (Primary Dx) Social History Tobacco Use Types Packs/Day Years Used Date Smoking Tobacco: Never Assessed Comments Unknown Sex and Gender Information Value Date Recorded Sex Assigned at Not on file Legal Sex Female 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
--- OUTSIDE RECORDS SUMMARY | 2025-04-07 10:53 | XMS_ITS | Encounter Summary ---
Author Organization [facility] Address [address] [place] [address] Care Team Providers Care Cardiothoracic Surgeon Name Role Phone Cory Ayers DO Primary Care Provider Darnell Raymond MD Unavailable Esthela Barksdale MD Primary Care Provider Un available Cory Ayers DO Primary Care Provider Cory Ayers DO Primary Care Provider Dano Han MD Primary Care Provider Stefani Mulligan MD Unavailable [phone] Cory Ayers DO Primary Care Provider [phone] Dano Han MD Primary Care Provider Amalia Gregory MD Unavailable [phone] Encounter Details Date Type Department Care Team (Late st Contact Info) Description 11/26/2017 [facility] Outpatient Visit [facility] [address] [place] [address] [place] [address] [address] Social History Tobacco Use Types Packs/Day Years Used Date Smoking Tobacco: Never Smokeless Tobacco: Never Alcohol Use Standard Drinks/Week Comments No 0 (1 standard drink = 0.6 oz pur e alcohol) Comments Unknown Sex and Gender Information Value Date Recorded Sex Assigned at Not on file 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 Gender Identity Female 01/16/2021 10:27 AM [...] documented as of this encounter Care Teams Cardiothoracic Surgeon Relationship Specialty Start Date End Date Cory Ayers DO PCP - General Internal Medicine 10/30/17 06/10/19 Esthela Barksdale MD [address] [place] [address] PCP - General Family Medicine 07/07/19 01/16/20 Cory Ayers DO [address] [place] [address] PCP - General 01/17/20 03/19/20 Cory Ayers DO [address] [place] [address] PCP - General 03/23/20 03/27/20 Dano Han [place] [address] PCP - General Family Medicine 03/28/20 03/30/20 Cory Ayers DO [address] [place] [address] PCP - General 03/31/20 04/02/20 Dano Han MD [address] [place] [address] PCP - General 04/03/20 [place] [address] [place] [address] Orthopedic Surgery 10/30/17 [place] [address] [place] [address] Heating Engineer Cardiovascular Disease 03/28/20 [place] [address] [facility] [facility] [place] [address] Rheumatology 10/26/20 documented as of this encounter
--- OUTSIDE RECORDS SUMMARY | 2025-04-07 10:54 | XMS_ITS | Encounter Summary ---
Author Organization [facility] Address [address] [facility] Attn: Epic Prelude ADT [place] [address] Care Team Providers Care Patient Care Director Name Role Phone Cory Ayers DO Primary Care Provider Encounter Details Date Type Department Care Team (Late st Contact Info) Description 11/26/1989 Outpatient Historical Hiram Trivedi MD [facility] [place] [address] Social History Tobacco Use Types Packs/Day Years Used Date Smoking Tobacco: Never Assessed Comments Unknown Sex and Gender Information Value Date Recorded Sex Assigned at Not on file Legal 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
--- OUTSIDE RECORDS SUMMARY | 2025-04-07 10:54 | XMS_ITS | Encounter Summary ---
Author Organization [facility] Address [address] [place] [address] Care Team Providers Care Planning Director Name Role Phone Cory Ayers DO [...] on file Legal Sex Female 4:21 AM ATTACHE Gender Identity Not on file Sexual Orientation Not on file documented as of this encounter Plan of Treatment Not on file documented as of this encounter Visit Diagnoses Diagnosis Disorders of bursae and tendons in shoulder region, unspecified- Primary documented in this encounter Care Teams Planning Director Relationship Specialty Start Date End Date Cory Ayers DO PCP - General 07/27/15 documented as of this encounter
--- OUTSIDE RECORDS SUMMARY | 2025-04-07 10:54 | XMS_ITS | Encounter Summary ---
Author Organization [facility] Address [address] [place] [address] Care Team Providers Care Adoption Worker Name Role Phone Cory Ayers DO Primary Care Provider Encounter Details Date Type Department Care Team (Late st Contact Info) Description 06/23/2001 Outpatient Historical [facility] Hiram Trivedi MD [address] [place] [address] Social History Tobacco Use Types Packs/Day Years Used Date Smoking Tobacco: Never Assessed Comments Unknown Sex and Gender Information Value Date Recorded Sex Assigned at Not on file Legal Sex Female 4:21 AM STUDENT OFFICER Gender Identity Not on file Sexual Orientation Not on file documented as of this encounter Plan of Treatment Not on file documented as of this encounter Visit Diagnoses Not on filedocumented in this encounter Care Teams Adoption Worker Relationship Specialty Start Date End Date Cory Ayers DO PCP - General 07/27/15 documented as of this encounter
--- OUTSIDE RECORDS SUMMARY | 2025-04-07 10:54 | XMS_ITS | Encounter Summary ---
Author Organization [facility] Address [address] [place] [address] Care Team Providers Care Corporate Claims Examiner Name Role Phone Darnell Raymond MD Unavailable Stefani Mulligan MD Unavailable [phone] Dano Han MD Primary Care Provider Amalia Gregory MD Unavailable [phone] Encounter Details Date Type Department Care Team (Late st Contact Info) Description 01/02/2023 Lab Requisition [facility] - DermPath Lab [address] [facility] [place] [phone] Parth Crain MD [address] [place] [address] Social History Tobacco Use Types Packs/Day Years Used Date Smoking Tobacco: Never Smokeless Tobacco: Never Alcohol Use Standard Drinks/Week Comments No 0 (1 standard drink = 0.6 oz pur e alcohol) Comments Unknown Sex and Gender Information Value Date Recorded Sex Assigned at Not on file Legal Sex Female 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 Jar 0. 3 5:48 [...] characteristic determined by the Dermatopathology Laboratory at [facility], directed by Dr. Maryam Mendoza. These tests need not be, and therefore are not, approved by the [place] Food and Drug Administration. The tests are used for clinical purposes. Billing Codes Specimen Charges Stain Charges 40456 1 3 5:48 PM CDT DERMATOPATHOLOGY LABORATORY Embedded Images 3 5:48 PM CDT DERMATOPATHOLOGY LABORATORY Pathology/Cytolog y TISSUE SPECIMEN FROM SKIN / Unknown 01/01/2023 01/02/2023 8:56 AM CDT Parth Crain MD LAB - PATHOLOGY/CYTOLOGY ORDERAB LES Final Result DERMATOPATHOLOGY LABORATORY [facility] Department of Dermatology [facility] Medicine [address] [place] [address], [address] [phone] documented in this encounter Visit Diagnoses Not on filedocumented in this encounter Additional Health Concerns Infection Onset Date Last Indicated Resolved Time 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
--- OUTSIDE RECORDS SUMMARY | 2025-04-07 10:54 | XMS_ITS | Encounter Summary ---
Author Organization [facility] Address 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
--- OUTSIDE RECORDS SUMMARY | 2025-04-07 10:54 | XMS_ITS | Clinical Summary ---
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
--- OUTSIDE RECORDS SUMMARY | 2025-04-07 10:54 | XMS_ITS | Encounter Summary ---
Author Organization [facility] Address 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
--- OUTSIDE RECORDS SUMMARY | 2025-04-07 10:54 | XMS_ITS | Encounter Summary ---
Author Organization [facility] Address [address] [place] [address] Care Team Providers Care Curing Pickling Packer Name Role Phone Cory Ayers DO Primary Care Provider Encounter Details Date Type Department Care Team (Late st Contact Info) Description 07/12/2002 Outpatient Historical [facility] [address] [place] [id number] Darnell Hernandez Social History Tobacco Use Types Packs/Day Years Used Date Smoking Tobacco: Never Assessed Comments Unknown Sex and Gender Information Value Date Recorded Sex Assigned at Not on file Legal Sex Female 4:21 AM SOCK DRIER Gender Identity Not on file Sexual Orientation Not on file documented as of this encounter Plan of Treatment Not on file documented as of this encounter Visit Diagnoses Not on filedocumented in this encounter Care Teams Curing Pickling Packer Relationship Specialty Start Date End Date Cory Ayers DO PCP - General 07/27/15 documented as of this encounter
--- OUTSIDE RECORDS SUMMARY | 2025-04-07 10:54 | XMS_ITS | Encounter Summary ---
Author Organization [facility] Address [address] [place] [address] Care Team Providers Care Head Baker Name Role Phone Cory Ayersian Primary Care [...] file Legal Sex Female 4:21 AM MANAGER ADOBE Gender Identity Not on file Sexual Orientation [...] and non- Americans is available on the [facility] Intranet at: [email or web address] Select: Lab Policies and Procedures Select: Reference Ranges - GFR 03/27/2007 5:55 AM CDT Red Clayell CHEMISTRY ORDERABLES Edited Performing Organization Address City/[facility] de Phone Number INTERFACE SYSTEM Refer to clinic/hospital department * HEMOGLOBIN AND HEMATOCRIT (03/27/2007 5:55 AM CDT) HEMOGLOBIN 13.7 11.8 - 14.8 g/dL INTERFACE SYSTEM HEMATOCRIT 40.3 35.5 - 44.0 % INTERFACE SYSTEM 03/27/2007 5:55 AM CDT Phigitalonnell HEMATOLOGY ORDERABLES Edited Performing Organization Address City/State/[facility] Co de Phone Number INTERFACE SYSTEM Refer to clinic/hospital department documented in this encounter Visit Diagnoses Diagnosis Specified congenital anomalies of breast- Primary documented in this encounter Care Teams Head Baker Relationship Specialty Start Date End Date Cory Ayers DO PCP - General 07/27/15 documented as of this encounter
--- OUTSIDE RECORDS SUMMARY | 2025-04-07 10:54 | XMS_ITS | Clinical Summary ---
Author Organization [facility] Address [address] [facility] [place] [address] Care Team Providers Care Net Applications Developer Name Role Phone Darnell Raymond MD Unavailable [phone] Stefani Mulligan MD Unavailable [phone] Dano Han MD Primary Care Provider Amalia Gregory MD Unavailable [phone] Source Comments [facility],non-owned Affiliates and Associated Physician Practices is amultiple site organization consisting of ambulatory clinics and hospital sitesin [place], [place], [place] and [place]. This disclosure is being madepursuant to the Care Everywhere program and may not contain all information available regarding this patient. Last updated 18.[facility] The city of [place] Allergies No known active allergies Medications * [...] Description 02/03/2025 12:30 PM CDT Ancillary Procedure [facility] Orthopedics - Radiology [address] [place] [address] Rex Gresham, SUKUMAR Presence of right artificial knee joint 02/03/2025 12:25 PM CDT Ancillary Procedure [facility] Orthopedics - Radiology [address] [place] [phone] Rex Gresham, SUKUMAR Presence of right artificial knee joint 02/03/2025 11:50 AM CDT Office Visit [facility] Orthopedics [address] [place] [address], [address] [place] [address] Rex Gresham PA-C Presence of right artificial knee joint (Primary Dx); Lumbar spondylosis; Primary osteoarthritis of right hip 02/03/2025 11:40 AM CDT Ancillary Procedure [facility] Orthopedics - Radiology [address] [place] [phone] Rex Gresham PA-C Presence of right artificial [...] on file Legal Sex Female 6:13 PM COMPENSATION ASSOCIATE Gender Identity Female 01/16/2021 10:27 AM CDT Sexual Orientation Not on file Last Filed Vital Signs Vital Sign Reading Time Taken Comments Blood Pressure 159/91 10/08/2023 10:15 AM COMPENSATION ASSOCIATE Pulse 76 10/08/2023 10:15 AM COMPENSATION ASSOCIATE Temperature 36.2 C (97.1 F) 07/12/2021 8:47 AM COMPENSATION ASSOCIATE Respiratory Rate 18 03/26/2021 10:24 AM CDT Oxygen Saturation 98% 10/26/2020 11:25 AM CDT Inhaled Oxygen Concentration - - Weight 70.3 kg (155 lb) 10/08/2023 10:15 AM COMPENSATION ASSOCIATE Height 157.5 cm (5' 2) 10/08/2023 10:15 AM COMPENSATION ASSOCIATE Body Mass Index 28.35 10/08/2023 10:15 AM COMPENSATION ASSOCIATE Plan of Treatment Health Maintenance Due Date [...] this topic Medical Devices Implanted Type Area Change Management Consultant Device Identifier Shelf Expiration Date Model / Serial / Lot Cmnt Bone Cblt 40gm Hvisc Strl Implanted:Qty: 1 on 12/15/2017 by Darnell Raymond MD at [facility] Right: Knee [employer] 06/10/2019 [id number] / / [id number] Cmpnt Fem Kn Rt Cr Cmnt Prm Vngrd Intlk Implanted:Qty: 1 on 12/15/2017 by Darnell Raymond MD at [facility] Right: Knee [employer] 09/14/2027 [id number] / / [id number] Tray Tib 71mm Kn Cocr I Beam Implanted:Qty: 1 on 12/15/2017 by Darnell Raymond MD at [facility] Right: Knee [employer] 08/07/2027 [id number] / / [id number] Cmpnt Ptlr 28mm 1 Pg Wire Ascnt Arcm Kn Implanted:Qty: 1 on 12/15/2017 by Darnell Raymond MD at [facility] Right: Knee [employer] 09/01/2022 [id number] / / [id number] Brng 54ags41yw Vngrd Arcm Kn Ant Stab Implanted:Qty: 1 on 12/15/2017 by Darnell Raymond MD at [facility] Right: Knee [employer] 09/04/2022 [id number] / / [id number] Procedures Procedure Name Priority Date/Time Associated Diagnosis [...] or 2Vw (02/03/2025 12:30 PM CDT) Narrative [facility] [address] - 02/03/2025 12:30 PM CDT Please see progress note in Epic for results. Rex VALVERDE-C DIAGNOSTIC IMAGING ORDERABL ES Final Result Performing Organization Address [facility] de Phone Number [facility] [address] * XR Lumbar Spine 2 or 3Vw (02/03/2025 12:30 PM CDT) Narrative [facility] [address] - 02/03/2025 12:30 PM CDT Please see progress note in Epic for results. Rex VALVERDE-C DIAGNOSTIC IMAGING ORDERABL ES Final Result Performing Organization Address [facility] Co de Phone Number [facility] [address] * XR Knee Right 3Vw (02/03/2025 11:54 AM CDT) Narrative [facility] [address] - 02/03/2025 11:54 AM CDT Please see progress note in Epic for results. 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 03/15/2020 Insurance [facility] MANAGED MEDICARE ADV Advance Directives * Full Code (Latest Code Status on File) Date Activated Date Inactivated Comments 03/15/2020 5:30 AM 03/18/2020 5:47 PM * Full Code Date Activated Date Inactivated Comments 06/11/2019 10:10 PM 06/13/2019 3:14 PM * Full Code Date Activated Date Inactivated Comments 12/15/2017 2:10 PM 12/18/2017 2:18 PM Care Teams Net Applications Developer Relationship Specialty Start Date End Date Dano Han MD [address] [place] [address] PCP - General 04/03/20 [place] [address] [facility] [address] [place] [address] Orthopedic Surgery 10/30/17 [place] [address] [facility] [address] [place] [address] Waist Cutter Cardiovascular Disease 03/28/20 [place] [address] [facility] [address] [place] [address] Rheumatology 10/26/20
--- OUTSIDE RECORDS SUMMARY | 2025-04-07 10:54 | XMS_ITS | Encounter Summary ---
Author Organization [facility] Address [address] [facility] [place] [address] Care Team Providers Care Volunteer Services Specialist Name Role Phone Darnell Raymond MD Unavailable [phone] Stefani Mulligan MD Unavailable [phone] Dano Han MD Primary Care Provider Amalia Gregory MD Unavailable [phone] Encounter Details Date Type Department Care Team (Late st Contact Info) Description 12/06/2022 Lab Requisition [facility] Care DermPath Lab [address] [facility] [place] [address] Parth Crain MD [facility] [place] [address] Social History Tobacco Use Types Packs/Day Years Used Date Smoking Tobacco: Never Smokeless Tobacco: Never Alcohol Use Standard Drinks/Week Comments No 0 (1 standard drink = 0.6 oz pur e alcohol) Comments Unknown Sex and Gender Information Value Date Recorded Sex Assigned at Not on file Legal Sex Female 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 Jar 0. 3 12:30 PM CDT DERMATOPATHOLOGY [...] purposes. Billing Codes Specimen Charges Stain Charges 79803 1 3 12:30 PM CDT DERMATOPATHOLOGY LABORATORY Embedded Images 3 12:30 PM CDT DERMATOPATHOLOGY LABORATORY Pathology/Cytolo gy TISSUE SPECIMEN FROM SKIN / Unknown 12/05/2022 3:33 AM CDT 12/06/2022 6:35 AM CDT Parth Crain MD LAB - PATHOLOGY/CYTOLOGY ORDERAB LES Final Result DERMATOPATHOLOGY LABORATORY [facility] Department of Dermatology [address], [address] [phone] documented in this encounter Visit Diagnoses Not on filedocumented in this encounter Additional Health Concerns Infection Onset Date Last Indicated Resolved Time 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
--- OUTSIDE RECORDS SUMMARY | 2025-04-07 10:54 | XMS_ITS | Encounter Summary ---
Author Organization [facility] Address [address] [facility] Attn: [place] [address] Care Team Providers Care Casting And Pasting Supervisor Name Role Phone Cory Ayers DO Primary Care Provider Encounter Details Date Type Department Care Team (Late st Contact Info) Description 10/06/1997 Outpatient Historical Conversion, History Hiram Trivedi MD [address] [place] [address] Social History Tobacco Use Types Packs/Day Years Used Date Smoking Tobacco: Never Assessed Comments Unknown Sex and Gender Information Value Date Recorded Sex Assigned at Not on file Legal Sex Female 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
--- OUTSIDE RECORDS SUMMARY | 2025-04-07 10:54 | XMS_ITS | Encounter Summary ---
Author Organization [facility] Address [address] [facility] Attn: Epic Prelude ADT [place] [address] Care Team Providers Care Manager Construction Name Role Phone Cory Ayers DO Primary Care Provider Encounter Details Date Type Department Care Team (Late st Contact Info) Description 01/08/1994 Outpatient Historical Hiram Trivedi MD [facility] [place] [address] Social History Tobacco Use Types Packs/Day Years Used Date Smoking Tobacco: Never Assessed Comments Unknown Sex and Gender Information Value Date Recorded Sex Assigned at Not on file Legal Sex Female 4:21 AM RN ADVANCED Gender Identity Not on file Sexual Orientation Not on file documented as of this encounter Plan of Treatment Not on file documented as of this encounter Visit Diagnoses Not on filedocumented in this encounter Care Teams Manager Construction Relationship Specialty Start Date End Date Cory Ayers DO PCP - General 07/27/15 documented as of this encounter
--- OUTSIDE RECORDS SUMMARY | 2025-04-07 10:54 | XMS_ITS | Encounter Summary ---
Author Organization [facility] Address [address] [place] [address] Care Team Providers Care Side Boss Name Role Phone Cory Ayers DO Primary Care Provider Encounter Details Date Type Department Care Team (Latest Contact Info) Description 09/23/2002 Outpatient Historical [facility] CARDIOPULMONARY Antolin Modi MD [address] [facility] [address] [address] SWELLING OF LIMB (Primary Dx) Social History Tobacco Use Types Packs/Day Years Used Date Smoking Tobacco: Never Assessed Comments Unknown Sex and Gender Information Value Date Recorded Sex Assigned at Not on file Legal Sex Female 4:21 AM CARRIER LOADER Gender Identity Not on file Sexual Orientation Not on file documented as of this encounter Plan of Treatment Not on file documented as of this encounter Visit Diagnoses Diagnosis Swelling of limb- Primary documented in this encounter Care Teams Side Boss Relationship Specialty Start Date End Date Cory Ayers DO PCP - General 07/27/15 documented as of this encounter
--- OUTSIDE RECORDS SUMMARY | 2025-04-07 10:54 | XMS_ITS | Encounter Summary ---
Author Organization [facility] Address [address] [place] [address] Care Team Providers Care Websphere Portal Developer Name Role Phone Cory Ayres DO Primary Care Provider Encounter Details Date Type Department Care Team (Late st Contact Info) Description 09/17/2002 Outpatient Historical [facility] LAB, [address] Antolin Modi MD [address] [place] [address] [address] [address] URIN TRACT INFECTION NOS (Primary Dx) Social History Tobacco Use Types Packs/Day Years Used Date Smoking Tobacco: Never Assessed Comments Unknown Sex and Gender Information Value Date Recorded Sex Assigned at Not on file Legal Sex Female 4:21 AM SOIL CONSERVATION AIDE Gender Identity Not on file Sexual Orientation Not on file documented as of this encounter Plan of Treatment Not on file documented as of this encounter Visit Diagnoses Diagnosis Urinary tract infection, site not specified- Primary documented in this encounter Care Teams Websphere Portal Developer Relationship Specialty Start Date End Date Cory Ayers DO PCP - General 07/27/15 documented as of this encounter
--- OUTSIDE RECORDS SUMMARY | 2025-04-07 10:54 | XMS_ITS | Encounter Summary ---
Author Organization [facility] Address [address] [place] [address] Care Team Providers Care Tank Maker Wood Name Role Phone Cory Ayers DO Primary Care Provider Encounter Details Date Type Department Care Team (Latest Contact Info) Description 05/09/1999 Outpatient Historical [facility] [place] [address] [facility] [place] [address] Localized adiposity (Primary Dx) Social History Tobacco Use Types Packs/Day Years Used Date Smoking Tobacco: Never Assessed Comments Unknown Sex and Gender Information Value Date Recorded Sex Assigned at Not on file Legal Sex Female 4:21 AM CIVIL PREPAREDNESS OFFICER Gender Identity Not on file Sexual Orientation Not on file documented as of this encounter Plan of Treatment Not on file documented as of this encounter Visit Diagnoses Diagnosis Localized adiposity- Primary documented in this encounter Care Teams Tank Maker Wood Relationship Specialty Start Date End Date Cory Ayers DO PCP - General 07/27/15 documented as of this encounter
--- OUTSIDE RECORDS SUMMARY | 2025-04-07 10:54 | XMS_ITS | Encounter Summary ---
Author Organization [facility] Address [address] [place] [address] Care Team Providers Care Detonator Maker Name Role Phone Cory Ayers DO Primary Care Provider Encounter Details Date Type Department Care Team (Late st Contact Info) Description 10/29/1999 Outpatient Historical HIS [facility] Hiram Trivedi MD [facility] [place] [address] Social History Tobacco Use Types Packs/Day Years Used Date Smoking Tobacco: Never Assessed Comments Unknown Sex and Gender Information Value Date Recorded Sex Assigned at Not on file Legal Sex Female 4:21 AM PHOTOSTATIC COPY MAKER Gender Identity Not on file Sexual Orientation Not on file documented as of this encounter Plan of Treatment Not on file documented as of this encounter Visit Diagnoses Not on filedocumented in this encounter Care Teams Detonator Maker Relationship Specialty Start Date End Date Cory Ayers DO PCP - General 07/27/15 documented as of this encounter
--- OUTSIDE RECORDS SUMMARY | 2025-04-07 10:54 | XMS_ITS | Encounter Summary ---
Author Organization [facility] Address [address] [place] [address] Care Team Providers Care Anode Worker Name Role Phone Cory Ayers DO Primary Care Provider Encounter Details Date Type Department Care Team (Late st Contact Info) Description 02/01/[address] [facility] Hiram Trivedi MD [address] [place] [address] Social History Tobacco Use Types Packs/Day Years Used Date Smoking Tobacco: Never Assessed Comments Unknown Sex and Gender Information Value Date Recorded Sex Assigned at Not on file Legal Sex Female 4:21 AM CARTOGRAPHY TECHNICIAN Gender Identity Not on file Sexual Orientation Not on file documented as of this encounter Plan of Treatment Not on file documented as of this encounter Visit Diagnoses Not on filedocumented in this encounter Care Teams Anode Worker Relationship Specialty Start Date End Date Cory Ayers DO PCP - General 07/27/15 documented as of this encounter
[2025-04-07 15:00] LABS: Add Urine Microscopic? YES; Appearance Urine Turbid (Clear); Glucose Urine UA Negative (Negative); Leukocyte Esterase Ur 2+ LEU/UL (Negative); Need Manual Microscopic Reviewed; Nitrate Urine Positive (Negative); Specific Grav Ur 1.022 (1.001-1.035)
[2025-04-07 17:26] LABS: Hemoglobin A1C 6.2 % (<5.7)
== END 2025-04-07 10:48 | disposition home or self-care (01) ==
LOC: ANHGOSHLAB 10:48
PROVIDERS: PCP Family Medicine; Visit Provider Nurse Practitioner Family
DX: N39.0 Urinary tract infection, site not specified (principal); R31.9 Hematuria, unspecified
CPT/HCPCS: 36415; 81001; 83036; 87086

== ENCOUNTER 2025-04-13 14:05 | Outpatient (CLI) | payer MEDICARE, SELFPAY ==
--- OUTSIDE RECORDS SUMMARY | 2025-04-13 15:29 | XMS_ITS | Encounter Summary ---
Author Organization [facility] Address [address] [place] [address] Care Team Providers Care Cost Specialist Name Role Phone Cory Ayersian Primary Care [...] on file Legal Sex Female 4:21 AM PERSONAL SERVICE REPRESENTATIVE Gender Identity Not on file Sexual [...] and non- Americans is available on the [facility] Intranet at: [email or web address] Select: Lab Policies and Procedures Select: Reference Ranges - GFR 03/27/2007 5:55 AM CDT [employer] CHEMISTRY ORDERABLES Edited Performing Organization Address City/[facility] de Phone Number INTERFACE SYSTEM Refer to clinic/hospital department * HEMOGLOBIN AND HEMATOCRIT (03/27/2007 5:55 AM CDT) HEMOGLOBIN 13.7 11.8 - 14.8 g/dL INTERFACE SYSTEM HEMATOCRIT 40.3 35.5 - 44.0 % INTERFACE SYSTEM 03/27/2007 5:55 AM CDT [employer] HEMATOLOGY ORDERABLES Edited Performing Organization Address City/State/[facility] Co de Phone Number INTERFACE SYSTEM Refer to clinic/hospital department documented in this encounter Visit Diagnoses Diagnosis Specified congenital anomalies of breast- Primary documented in this encounter Care Teams Cost Specialist Relationship Specialty Start Date End Date Cory Ayers DO PCP - General 07/27/15 documented as of this encounter
--- OUTSIDE RECORDS SUMMARY | 2025-04-13 15:29 | XMS_ITS | Encounter Summary ---
Author Organization [facility] Address [address] [place] [address] Care Team Providers Care Laboratory Operations Coordinator Name Role Phone Cory Ayers DO Primary Care Provider Encounter Details Date Type Department Care Team (Late st Contact Info) Description 10/29/1999 Outpatient Historical [facility] Hiram Trivedi MD [facility] [place] [address] Social History Tobacco Use Types Packs/Day Years Used Date Smoking Tobacco: Never Assessed Comments Unknown Sex and Gender Information Value Date Recorded Sex Assigned at Not on file Legal Sex Female 4:21 AM BI MANAGER Gender Identity Not on file Sexual Orientation Not on file documented as of this encounter Plan of Treatment Not on file documented as of this encounter Visit Diagnoses Not on filedocumented in this encounter Care Teams Laboratory Operations Coordinator Relationship Specialty Start Date End Date Cory Ayers DO PCP - General 07/27/15 documented as of this encounter
--- OUTSIDE RECORDS SUMMARY | 2025-04-13 15:29 | XMS_ITS | Clinical Summary ---
Author Organization [facility] Address [address] [facility] [place] [address] Phone Care Team Providers Care Power Washer Name Role Phone AgapitoCory molina Alvarez Primary [...] on file Legal Sex Female 4:21 AM FOUNDRY HELPER Gender Identity Not on file Sexual [...] series) 2014 INFLUENZA VACCINE (#1) [address] [place] [address] MEDICARE PART A AND B [employer] PPO Care Teams Power Washer Relationship Specialty Start Date End Date Cory Ayers DO PCP - General 07/27/15
--- OUTSIDE RECORDS SUMMARY | 2025-04-13 15:29 | XMS_ITS | Encounter Summary ---
Author Organization [facility] Address [address] [place] [address] Care Team Providers Care Dielectric Press Operator Name Role Phone Cory Ayers DO Primary Care Provider Encounter Details Date Type Department Care Team (Late st Contact Info) Description 09/17/2002 Outpatient Historical HIS LAB, [address] Antolin Modi MD [address] [place] [address] [address] [address] URIN TRACT INFECTION NOS (Primary Dx) Social History Tobacco Use Types Packs/Day Years Used Date Smoking Tobacco: Never Assessed Comments Unknown Sex and Gender Information Value Date Recorded Sex Assigned at Not on file Legal Sex Female 4:21 AM IMMERSION METAL CLEANER Gender Identity Not on file Sexual Orientation Not on file documented as of this encounter Plan of Treatment Not on file documented as of this encounter Visit Diagnoses Diagnosis Urinary tract infection, site not specified- Primary documented in this encounter Care Teams Dielectric Press Operator Relationship Specialty Start Date End Date Cory Ayers DO PCP - General 07/27/15 documented as of this encounter
--- OUTSIDE RECORDS SUMMARY | 2025-04-13 15:29 | XMS_ITS | Encounter Summary ---
Author Organization [facility] Address [address] [place] [address] Care Team Providers Care Executive Housekeeper Name Role Phone Cory Ayers DO Primary [...] on file Legal Sex Female 4:21 AM STONE CLEANER Gender Identity Not on file Sexual Orientation Not on file documented as of this encounter Plan of Treatment Not on file documented as of this encounter Visit Diagnoses Diagnosis Disorders of bursae and tendons in shoulder region, unspecified- Primary documented in this encounter Care Teams Executive Housekeeper Relationship Specialty Start Date End Date Cory Ayers DO PCP - General 07/27/15 documented as of this encounter
--- OUTSIDE RECORDS SUMMARY | 2025-04-13 15:29 | XMS_ITS | Encounter Summary ---
Author Organization [facility] Address [address] [facility] Attn: Epic Prelude ADT [place] [address] Care Team Providers Care Floor Framer Name Role Phone Cory Ayers DO Primary Care Provider Encounter Details Date Type Department Care Team (Late st Contact Info) Description 11/26/1989 Outpatient Historical Hiram Trivedi MD [facility] [place] [address] Social History Tobacco Use Types Packs/Day Years Used Date Smoking Tobacco: Never Assessed Comments Unknown Sex and Gender Information Value Date Recorded Sex Assigned at Not on file Legal Sex Female 4:21 AM SUPERVISOR TYPE PHOTOGRAPHY Gender Identity Not on file Sexual Orientation Not on file documented as of this encounter Plan of Treatment Not on file documented as of this encounter Visit Diagnoses Not on filedocumented in this encounter Care Teams Floor Framer Relationship Specialty Start Date End Date Cory Ayers DO PCP - General 07/27/15 documented as of this encounter
--- OUTSIDE RECORDS SUMMARY | 2025-04-13 15:29 | XMS_ITS | Encounter Summary ---
Author Organization [facility] Address [address] [facility] Attn: [place] [address] Care Team Providers Care Brim Cutter Name Role Phone Cory Ayers DO Primary Care Provider Encounter Details Date Type Department Care Team (Late st Contact Info) Description 10/06/1997 Outpatient Historical Conversion, History Hiram Trivedi MD [address] [place] [address] Social History Tobacco Use Types Packs/Day Years Used Date Smoking Tobacco: Never Assessed Comments Unknown Sex and Gender Information Value Date Recorded Sex Assigned at Not on file Legal Sex Female 4:21 AM IT INTERN Gender Identity Not on file Sexual Orientation Not on file documented as of this encounter Plan of Treatment Not on file documented as of this encounter Visit Diagnoses Not on filedocumented in this encounter Care Teams Brim Cutter Relationship Specialty Start Date End Date Cory Ayers DO PCP - General 07/27/15 documented as of this encounter
--- OUTSIDE RECORDS SUMMARY | 2025-04-13 15:29 | XMS_ITS | Encounter Summary ---
Author Organization [facility] Address [address] [place] [address] Care Team Providers Care Slot Host Name Role Phone Cory Ayers DO Primary Care Provider Encounter Details Date Type Department Care Team (Late st Contact Info) Description 10/29/1999 Outpatient Historical HIS LAB,NON-PATIENT Hiram Trivedi MD [address] [place] [address] Social History Tobacco Use Types Packs/Day Years Used Date Smoking Tobacco: Never Assessed Comments Unknown Sex and Gender Information Value Date Recorded Sex Assigned at Not on file Legal Sex Female 4:21 AM LACE WINDER Gender Identity Not on file Sexual Orientation Not on file documented as of this encounter Plan of Treatment Not on file documented as of this encounter Visit Diagnoses Not on filedocumented in this encounter Care Teams Slot Host Relationship Specialty Start Date End Date Cory Ayers DO PCP - General 07/27/15 documented as of this encounter
--- OUTSIDE RECORDS SUMMARY | 2025-04-13 15:29 | XMS_ITS | Encounter Summary ---
Author Organization [facility] Address [address] [place] [address] Care Team Providers Care Reconciliation Manager Name Role Phone Cory Ayers DO Primary Care Provider Encounter Details Date Type Department Care Team (Latest Contact Info) Description 09/23/2002 Outpatient Historical HIS CARDIOPULMONARY Antolin Modi MD [address] [facility] [address] [address] SWELLING OF LIMB (Primary Dx) Social History Tobacco Use Types Packs/Day Years Used Date Smoking Tobacco: Never Assessed Comments Unknown Sex and Gender Information Value Date Recorded Sex Assigned at Not on file Legal Sex Female 4:21 AM RENEWALS REPRESENTATIVE Gender Identity Not on file Sexual Orientation Not on file documented as of this encounter Plan of Treatment Not on file documented as of this encounter Visit Diagnoses Diagnosis Swelling of limb- Primary documented in this encounter Care Teams Reconciliation Manager Relationship Specialty Start Date End Date Cory Ayers DO PCP - General 07/27/15 documented as of this encounter
--- OUTSIDE RECORDS SUMMARY | 2025-04-13 15:29 | XMS_ITS | Encounter Summary ---
Author Organization [facility] Address [address] [place] [address] Care Team Providers Care Test Conductor Name Role Phone Cory Ayers DO Primary Care Provider Encounter Details Date Type Department Care Team (Late st Contact Info) Description 10/06/2002 Outpatient Historical HIS MRI DEPT [facility] [place], [place] [address] [facility] [address] [place] [address] JOINT PAIN-L/LEG (Primary Dx) Social History Tobacco Use Types Packs/Day Years Used Date Smoking Tobacco: Never Assessed Comments Unknown Sex and Gender Information Value Date Recorded Sex Assigned at Not on file Legal Sex Female 4:21 AM DIGITAL SALES PLANNER Gender Identity Not on file Sexual Orientation Not on file documented as of this encounter Plan of Treatment Not on file documented as of this encounter Visit Diagnoses Diagnosis Pain in joint, lower leg- Primary documented in this encounter Care Teams Test Conductor Relationship Specialty Start Date End Date Cory Ayers DO PCP - General 07/27/15 documented as of this encounter
--- OUTSIDE RECORDS SUMMARY | 2025-04-13 15:29 | XMS_ITS | Encounter Summary ---
Author Organization [facility] Address [address] [place] [address] Care Team Providers Care Buyer Grain Name Role Phone Cory Ayers DO Primary Care Provider Encounter Details Date Type Department Care Team (Late st Contact Info) Description 07/12/2002 Outpatient Historical [facility] ([facility]t Cardiology[facility]) [address] [place] [address] Darnell Hernandez Social History Tobacco Use Types Packs/Day Years Used Date Smoking Tobacco: Never Assessed Comments Unknown Sex and Gender Information Value Date Recorded Sex Assigned at Not on file Legal Sex Female 4:21 AM CERTIFIED SURGICAL TECHNOLOGIST Gender Identity Not on file Sexual Orientation Not on file documented as of this encounter Plan of Treatment Not on file documented as of this encounter Visit Diagnoses Not on filedocumented in this encounter Care Teams Buyer Grain Relationship Specialty Start Date End Date Cory Ayers DO PCP - General 07/27/15 documented as of this encounter
--- OUTSIDE RECORDS SUMMARY | 2025-04-13 15:29 | XMS_ITS | Encounter Summary ---
Author Organization [facility] Address [address] [place] [address] Care Team Providers Care Tax Analyst Name Role Phone Cory Ayers DO Primary Care Provider Encounter Details Date Type Department Care Team (Late st Contact Info) Description 06/23/2001 Outpatient Historical HIS G [facility] Hiram Trivedi MD [address] [place] [address] Social History Tobacco Use Types Packs/Day Years Used Date Smoking Tobacco: Never Assessed Comments Unknown Sex and Gender Information Value Date Recorded Sex Assigned at Not on file Legal Sex Female 4:21 AM ANGLE ROLL OPERATOR Gender Identity Not on file Sexual Orientation Not on file documented as of this encounter Plan of Treatment Not on file documented as of this encounter Visit Diagnoses Not on filedocumented in this encounter Care Teams Tax Analyst Relationship Specialty Start Date End Date Cory Ayers DO PCP - General 07/27/15 documented as of this encounter
--- OUTSIDE RECORDS SUMMARY | 2025-04-13 15:29 | XMS_ITS | Clinical Summary ---
Author Organization [facility] Address [address] [place] [address] Care Team Providers Care Heading Repairer Name Role Phone Dano Han MD Primary [...] on file Legal Sex Female 3:34 AM MERCHANDISING ASSISTANT Gender Identity Not on file Sexual [...] 05/13/2019, 05/13/2019, Additional history exists Insurance MEDICARE [facility] MEDICARE [facility] MEDICARE ADVANTAGE [facility] MEDICARE Address: [facility] [address] [place] [address] Care Teams Heading Repairer Relationship Specialty Start Date End Date Dano Han MD PCP - General Family Practice 08/31/21
--- OUTSIDE RECORDS SUMMARY | 2025-04-13 15:29 | XMS_ITS | Encounter Summary ---
Author Organization [facility] Address [address] [place] [address] Care Team Providers Care Cab Starter Name Role Phone Cory Ayers DO Primary Care Provider Encounter Details Date Type Department Care Team (Latest Contact Info) Description 05/09/1999 Outpatient Historical HIS [place] [address] [facility] [place] [address] Localized adiposity (Primary Dx) Social History Tobacco Use Types Packs/Day Years Used Date Smoking Tobacco: Never Assessed Comments Unknown Sex and Gender Information Value Date Recorded Sex Assigned at Not on file Legal Sex Female 4:21 AM CAR REPAIRER APPRENTICE Gender Identity Not on file Sexual Orientation Not on file documented as of this encounter Plan of Treatment Not on file documented as of this encounter Visit Diagnoses Diagnosis Localized adiposity- Primary documented in this encounter Care Teams Cab Starter Relationship Specialty Start Date End Date Cory Ayers DO PCP - General 07/27/15 documented as of this encounter
--- OUTSIDE RECORDS SUMMARY | 2025-04-13 15:29 | XMS_ITS | Encounter Summary ---
Author Organization [facility] Address [address] [place] [address] Care Team Providers Care Transport Truck Driver Name Role Phone Cory Ayers DO Primary Care Provider Encounter Details Date Type Department Care Team (Late st Contact Info) Description 02/01/2000 Outpatient Historical [facility] Hiram Trivedi MD [address] [place] [address] Social History Tobacco Use Types Packs/Day Years Used Date Smoking Tobacco: Never Assessed Comments Unknown Sex and Gender Information Value Date Recorded Sex Assigned at Not on file Legal Sex Female 4:21 AM BUZZSAW OPERATOR HELPER Gender Identity Not on file Sexual Orientation Not on file documented as of this encounter Plan of Treatment Not on file documented as of this encounter Visit Diagnoses Not on filedocumented in this encounter Care Teams Transport Truck Driver Relationship Specialty Start Date End Date Cory Ayers DO PCP - General 07/27/15 documented as of this encounter
--- OUTSIDE RECORDS SUMMARY | 2025-04-13 15:29 | XMS_ITS | Encounter Summary ---
Author Organization [facility] Address [address] [facility] Attn: Epic Prelude ADT [place] [address] Care Team Providers Care Brazing Furnace Operator Name Role Phone Cory Ayers DO Primary Care Provider Encounter Details Date Type Department Care Team (Late st Contact Info) Description 01/08/1994 Outpatient Historical Hiram Trivedi MD [facility] [place] [address] Social History Tobacco Use Types Packs/Day Years Used Date Smoking Tobacco: Never Assessed Comments Unknown Sex and Gender Information Value Date Recorded Sex Assigned at Not on file Legal Sex Female 4:21 AM MANUFACTURING ELECTRICIAN Gender Identity Not on file Sexual Orientation Not on file documented as of this encounter Plan of Treatment Not on file documented as of this encounter Visit Diagnoses Not on filedocumented in this encounter Care Teams Brazing Furnace Operator Relationship Specialty Start Date End Date Cory Ayers DO PCP - General 07/27/15 documented as of this encounter
--- OUTSIDE RECORDS SUMMARY | 2025-04-13 15:29 | XMS_ITS | Encounter Summary ---
Author Organization [facility] Address [address] [place] [address] Care Team Providers Care Furnace Mechanic Helper Name Role Phone Cory Ayers DO Primary Care Provider Encounter Details Date Type Department Care Team (Late st Contact Info) Description 07/26/2002 Inpatient Historical [facility] Antolin Modi MD [address] 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
--- OUTSIDE RECORDS SUMMARY | 2025-04-13 15:29 | XMS_ITS | Encounter Summary ---
Author Organization [facility] Address [address] [place] [address] Care Team Providers Care Cable Installer Repairer Name Role Phone Cory Ayers DO Primary Care Provider Encounter Details Date Type Department Care Team (Late st Contact Info) Description 09/11/2002 Outpatient Historical [facility] Antolin Modi MD [address] [facility] [address] [address] COMPLIC-URINARY TRACT (Primary Dx) Social History Tobacco Use Types Packs/Day Years Used Date Smoking Tobacco: Never Assessed Comments Unknown Sex and Gender Information Value Date Recorded Sex Assigned at Not on file Legal Sex Female 4:21 AM SENIOR FIREWALL ENGINEER Gender Identity Not on file Sexual Orientation Not on file documented as of this encounter Plan of Treatment Not on file documented as of this encounter Visit Diagnoses Diagnosis Urinary complications- Primary documented in this encounter Care Teams Cable Installer Repairer Relationship Specialty Start Date End Date Cory Ayers DO PCP - General 07/27/15 documented as of this encounter
--- OUTSIDE RECORDS SUMMARY | 2025-04-13 15:29 | XMS_ITS | Encounter Summary ---
Author Organization [facility] Address [address] [place] [address] Care Team Providers Care Blacksmith Assistant Name Role Phone Cory Ayers DO Primary Care Provider Darnell Raymond MD Unavailable Esthela Barksdale MD Primary Care Provider Un available Cory Ayers DO Primary Care Provider Cory Ayers DO Primary Care Provider Dano Han MD Primary Care Provider Stefani Mulligan MD Unavailable Cory Ayers DO Primary Care Provider [phone] Dano Han MD Primary Care Provider Amalia Gregory MD Unavailable [phone] Encounter Details Date Type Department Care Team (Late st Contact Info) Description 11/26/2017 [facility] [address] [place] [address] [place] [address] [address] Social History Tobacco Use Types Packs/Day Years Used Date Smoking Tobacco: Never Smokeless Tobacco: Never Alcohol Use Standard Drinks/Week Comments No 0 (1 standard drink = 0.6 oz pur e alcohol) Comments Unknown Sex and Gender Information Value Date Recorded Sex Assigned at Not on file Legal Sex Female 6:13 PM BREAST TRIMMER Gender Identity Female 01/16/2021 10:27 AM CDT [...] documented as of this encounter Care Teams Blacksmith Assistant Relationship Specialty Start Date End Date Cory Ayers DO PCP - General Internal Medicine 10/30/17 06/10/19 Esthela Barksdale MD [address] [place] [address] PCP - General Family Medicine 07/07/19 01/16/20 Cory Ayers DO [address] [place] [address] PCP - General 01/17/20 03/19/20 Cory Ayers DO [address] [place] [address] PCP - General 03/23/20 03/27/20 Dano Han MD [address] [place] [address] PCP - General Family Medicine 03/28/20 03/30/20 Cory Ayers DO [address] [place] [address] PCP - General 03/31/20 04/02/20 Dano Han MD [address] [place] [address] PCP - General 04/03/20 [place] [address] [place] [address] Orthopedic Surgery 10/30/17 [place] [address] [place] [address] Deputy Sheriff/Investigator Cardiovascular Disease 03/28/20 [place] [address] [place] [address] Rheumatology 10/26/20 documented as of this encounter
--- OUTSIDE RECORDS SUMMARY | 2025-04-13 15:30 | XMS_ITS | Encounter Summary ---
Author Organization [facility] Address [address] [place] [address] Care Team Providers Care Art Editor Name Role Phone Darnell Raymond MD Unavailable Stefani Mulligan MD Unavailable [phone] Dano Han MD Primary Care Provider Amalia Gregory MD Unavailable [phone] Encounter Details Date Type Department Care Team (Late st Contact Info) Description 01/02/2023 Lab Requisition [facility] - DermPath Lab [address] [facility] [place] [id number] Parth Crain MD [address] [place] [address] Social History Tobacco Use Types Packs/Day Years Used Date Smoking Tobacco: Never Smokeless Tobacco: Never Alcohol Use Standard Drinks/Week Comments No 0 (1 standard drink = 0.6 oz pur e alcohol) Comments Unknown Sex and Gender Information Value Date Recorded Sex Assigned at Not on file Legal Sex Female 6:13 PM SUPERVISOR RECORDS CHANGE Gender Identity Female 01/16/2021 10:27 AM CDT [...] AM CDT) Case Report Dermatopathology Report Case: [id number] Authorizing Provider: Parth Crain MD Collected: 01/01/2023 12:00 AM Ordering Location: [facility] DermPath Lab Received: 01/02/2023 08:56 AM [...] specimen consists of two shaved biopsies measuring [id number] and 6x6x1 mm. Jar 0. 3 5:48 [...] purposes. Billing Codes Specimen Charges Stain Charges 79457 1 3 5:48 PM CDT DERMATOPATHOLOGY LABORATORY Embedded Images 3 5:48 PM CDT DERMATOPATHOLOGY LABORATORY Pathology/Cytolog y TISSUE SPECIMEN FROM SKIN / Unknown 01/01/2023 01/02/2023 8:56 AM CDT Parth Crain MD LAB - PATHOLOGY/CYTOLOGY ORDERAB LES Final Result DERMATOPATHOLOGY LABORATORY [facility] Department of Dermatology [facility] [address] [place] [address], [address] [phone] documented in this encounter Visit Diagnoses Not on filedocumented in this encounter Additional Health Concerns Infection Onset Date Last Indicated Resolved Time 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
--- OUTSIDE RECORDS SUMMARY | 2025-04-13 15:30 | XMS_ITS | Encounter Summary ---
Author Organization [facility] Address [address] [facility] [address] Care Team Providers Care Cribber Name Role Phone Darnell Raymond MD Unavailable [phone] Stefani Mulligan MD Unavailable [phone] Dano Han MD Primary Care Provider Amalia Gregory MD Unavailable [phone] Encounter Details Date Type Department Care Team (Late st Contact Info) Description 12/06/2022 Lab Requisition [facility] Care DermPath Lab [address] [facility] [place] [address] Parth Crain MD [facility] [place] [address] Social History Tobacco Use Types Packs/Day Years Used Date Smoking Tobacco: Never Smokeless Tobacco: Never Alcohol Use Standard Drinks/Week Comments No 0 (1 standard drink = 0.6 oz pur e alcohol) Comments Unknown Sex and Gender Information Value Date Recorded Sex Assigned at Not on file Legal Sex Female 6:13 PM CABIN CREW Gender Identity Female 01/16/2021 10:27 AM CDT [...] AM CDT) Case Report Dermatopathology Report Case: [id number] Authorizing Provider: Parth Crain MD Collected: 12/05/2022 [...] specimen consists of a shave biopsy measuring [id number], 9t2f2hg and 6k0j5fa. Jar 0. 3 12:30 PM CDT DERMATOPATHOLOGY [...] characteristic determined by the Dermatopathology Laboratory at [facility], directed by Dr. Maryam Mendoza. These tests need not be, and therefore are not, approved by the [place] Food and Drug Administration. The tests are used for clinical purposes. Billing Codes Specimen Charges Stain Charges 10375 1 3 12:30 PM CDT DERMATOPATHOLOGY LABORATORY Embedded Images 3 12:30 PM CDT DERMATOPATHOLOGY LABORATORY Pathology/Cytolo gy TISSUE SPECIMEN FROM SKIN / Unknown 12/05/2022 3:33 AM CDT 12/06/2022 6:35 AM CDT Parth Crain MD LAB - PATHOLOGY/CYTOLOGY ORDERAB LES Final Result DERMATOPATHOLOGY LABORATORY [facility] Department of Dermatology [address], [address] [phone] documented in this encounter Visit Diagnoses Not on filedocumented in this encounter Additional Health Concerns Infection Onset Date Last Indicated Resolved Time 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
--- OUTSIDE RECORDS SUMMARY | 2025-04-13 15:30 | XMS_ITS | Clinical Summary ---
Author Organization [facility] Address [address] [facility] [place] [address] Care Team Providers Care Director Of Preclinical Research Name Role Phone Darnell Raymond MD Unavailable [phone] Stefani Mulligan MD Unavailable [phone] Dano Han MD Primary Care Provider Amalia Gregory MD Unavailable [phone] Source Comments [facility],non-owned Affiliates and Associated Physician Practices is amultiple site organization consisting of ambulatory clinics and hospital sitesin [place], [place], [place] and [place]. This disclosure is being madepursuant to the Care Everywhere program and may not contain all information available regarding this patient. Last updated 18.[facility] Informative Allergies No known active allergies Medications * [...] Description 02/03/2025 12:30 PM CDT Ancillary Procedure [facility] Orthopedics - Radiology [address] [place] [phone] Rex Gresham, SUKUMAR Presence of right artificial knee joint 02/03/2025 12:25 PM CDT Ancillary Procedure [facility] Orthopedics - Radiology [address] [place] [phone] Rex Gresham, SUKUMAR Presence of right artificial knee joint 02/03/2025 11:50 AM CDT Office Visit [facility] Orthopedics [address] [place] [address], [address] [place] [address] Rex Gresham PA-C Presence of right artificial knee joint (Primary Dx); Lumbar spondylosis; Primary osteoarthritis of right hip 02/03/2025 11:40 AM CDT Ancillary Procedure [facility] Orthopedics - Radiology [address] [place] [phone] Rex Gresham PA-C Presence of right artificial [...] on file Legal Sex Female 6:13 PM SPORTS MANAGER Gender Identity Female 01/16/2021 10:27 AM CDT Sexual Orientation Not on file Last Filed Vital Signs Vital Sign Reading Time Taken Comments Blood Pressure 159/91 10/08/2023 10:15 AM SPORTS MANAGER Pulse 76 10/08/2023 10:15 AM SPORTS MANAGER Temperature 36.2 C (97.1 F) 07/12/2021 8:47 AM SPORTS MANAGER Respiratory Rate 18 03/26/2021 10:24 AM CDT Oxygen Saturation 98% 10/26/2020 11:25 AM CDT Inhaled Oxygen Concentration - - Weight 70.3 kg (155 lb) 10/08/2023 10:15 AM SPORTS MANAGER Height 157.5 cm (5' 2) 10/08/2023 10:15 AM SPORTS MANAGER Body Mass Index 28.35 10/08/2023 10:15 AM SPORTS MANAGER Plan of Treatment Health Maintenance Due [...] this topic Medical Devices Implanted Type Area Durable Medical Equipment Repairer Device Identifier Shelf Expiration Date Model / Serial / Lot Cmnt Bone Cblt 40gm Hvisc Strl Implanted:Qty: 1 on 12/15/2017 by Darnell Raymond MD at [facility] Right: Knee [employer] 06/10/2019 600-15-000 / / [id number] Cmpnt Fem Kn Rt Cr Cmnt Prm Vngrd Intlk Implanted:Qty: 1 on 12/15/2017 by Darnell Raymond MD at [facility] Right: Knee [employer] 09/14/2027 [id number] / / [id number] Tray Tib 71mm Kn Cocr I Beam Implanted:Qty: 1 on 12/15/2017 by Darnell Raymond MD at [facility] Right: Knee [employer] 08/07/2027 [id number] / / [id number] Cmpnt Ptlr 28mm 1 Pg Wire Ascnt Arcm Kn Implanted:Qty: 1 on 12/15/2017 by Darnell Raymond MD at [facility] Right: Knee [employer] 09/01/2022 [id number] / / [id number] [id number] Vngrd Arcm Kn Ant Stab Implanted:Qty: 1 on 12/15/2017 by Darnell Raymond MD at [facility] Right: Knee [employer] 09/04/2022 [id number] / / [id number] Procedures Procedure Name Priority Date/Time Associated Diagnosis [...] or 2Vw (02/03/2025 12:30 PM CDT) Narrative [facility] [address] - 02/03/2025 12:30 PM CDT Please see progress note in Epic for results. Rex VALVERDE-C DIAGNOSTIC IMAGING ORDERABL ES Final Result Performing Organization Address [facility] de Phone Number [facility] [address] * XR Lumbar Spine 2 or 3Vw (02/03/2025 12:30 PM CDT) Narrative [facility] [address] - 02/03/2025 12:30 PM CDT Please see progress note in Epic for results. Rex VALVERDE-C DIAGNOSTIC IMAGING ORDERABL ES Final Result Performing Organization Address [facility] Co de Phone Number [facility] [address] * XR Knee Right 3Vw (02/03/2025 11:54 AM CDT) Narrative [facility] [address] - 02/03/2025 11:54 AM CDT Please see progress note in Epic for results. 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 03/15/2020 Insurance [facility] MANAGED MEDICARE ADV Advance Directives * Full Code (Latest Code Status on File) Date Activated Date Inactivated Comments 03/15/2020 5:30 AM 03/18/2020 5:47 PM * Full Code Date Activated Date Inactivated Comments 06/11/2019 10:10 PM 06/13/2019 3:14 PM * Full Code Date Activated Date Inactivated Comments 12/15/2017 2:10 PM 12/18/2017 2:18 PM Care Teams Director Of Preclinical Research Relationship Specialty Start Date End Date Dano Han MD [address] [place] [address] PCP - General 04/03/20 [place] [address] [facility] [address] [place] [address] Orthopedic Surgery 10/30/17 [place] [address] [facility] [address] [place] [address] Fuel Cell Battery Technician Cardiovascular Disease 03/28/20 [place] [address] [facility] [address] [place] [address] Rheumatology 10/26/20
[2025-04-13 19:43] LABS: Add Urine Microscopic? YES; Appearance Urine Cloudy (Clear); Glucose Urine UA Negative (Negative); Leukocyte Esterase Ur Negative LEU/UL (Negative); Nitrate Urine Negative (Negative); Non Pathogenic Casts 0-2; Specific Grav Ur 1.013 (1.001-1.035)
== END 2025-04-13 14:06 | disposition home or self-care (01) ==
LOC: ANHGOSHLAB 14:06
PROVIDERS: PCP Family Medicine; Visit Provider Nurse Practitioner Family
DX: N39.0 Urinary tract infection, site not specified (principal)
CPT/HCPCS: 81001

== ENCOUNTER 2025-05-06 13:11 | Outpatient (CLI) | payer MEDICARE, SELFPAY ==
--- OUTSIDE RECORDS SUMMARY | 2025-05-06 13:16 | XMS_ITS | Clinical Summary ---
Author Organization [facility] Address [address] [facility] [place] [address] Care Team Providers Care Home Health Occupational Therapist Name Role Phone Darnell Raymond MD Unavailable [phone] Stefani Mulligan MD Unavailable [phone] Dano Han MD Primary Care Provider Amalia Gregory MD Unavailable [phone] Source Comments [facility],non-owned Affiliates and Associated Physician Practices is amultiple site organization consisting of ambulatory clinics and hospital sitesin [place], [place], [place] and [place]. This disclosure is being madepursuant to the Care Everywhere program and may not contain all information available regarding this patient. Last updated 18.[facility] [employer] Allergies No known active allergies Medications * [...] 02/03/2025 12:30 PM CDT Ancillary Procedure [facility] Orthopedics - Radiology [address] [place] [phone] Rex Gresham, SUKUMAR Presence of right artificial knee joint 02/03/2025 12:25 PM CDT Ancillary Procedure [facility] Orthopedics - Radiology [address] [place] [phone] Rex Gresham, SUKUMAR Presence of right artificial knee joint 02/03/2025 11:50 AM CDT Office Visit [facility] Orthopedics [address] [place] [address], [address] [place] [address] Rex Gresham PA-C Presence of right artificial knee joint (Primary Dx); Lumbar spondylosis; Primary osteoarthritis of right hip 02/03/2025 11:40 AM CDT Ancillary Procedure [facility] Orthopedics - Radiology [address] [place] [phone] Rex Gresham PA-C Presence of right artificial [...] on file Legal Sex Female 6:13 PM NET MAKER Gender Identity Female 01/16/2021 10:27 AM CDT Sexual Orientation Not on file Last Filed Vital Signs Vital Sign Reading Time Taken Comments Blood Pressure 159/91 10/08/2023 10:15 AM NET MAKER Pulse 76 10/08/2023 10:15 AM NET MAKER Temperature 36.2 C (97.1 F) 07/12/2021 8:47 AM NET MAKER Respiratory Rate 18 03/26/2021 10:24 AM CDT Oxygen Saturation 98% 10/26/2020 11:25 AM CDT Inhaled Oxygen Concentration - - Weight 70.3 kg (155 lb) 10/08/2023 10:15 AM NET MAKER Height 157.5 cm (5' 2) 10/08/2023 10:15 AM NET MAKER Body Mass Index 28.35 10/08/2023 10:15 AM NET MAKER Plan of Treatment Health Maintenance Due Date [...] this topic Medical Devices Implanted Type Area Plastering Supervisor Device Identifier Shelf Expiration Date Model / Serial / Lot Cmnt Bone Cblt 40gm Hvisc Strl Implanted:Qty: 1 on 12/15/2017 by Darnell Raymond MD at [facility] Right: Knee [employer] 06/10/2019 600-15-000 / / [id number] Cmpnt Fem Kn Rt Cr Cmnt Prm Vngrd Intlk Implanted:Qty: 1 on 12/15/2017 by Darnell Raymond MD at [facility] Right: Knee [employer] 09/14/2027 [id number] / / [id number] Tray Tib 71mm Kn Cocr I Beam Implanted:Qty: 1 on 12/15/2017 by Darnell Raymond MD at [facility] Right: Knee [employer] 08/07/2027 [id number] / / [id number] Cmpnt Ptlr 28mm 1 Pg Wire Ascnt Arcm Kn Implanted:Qty: 1 on 12/15/2017 by Darnell Raymond MD at [facility] Right: Knee [employer] 09/01/2022 [id number] / / [id number] Brng [id number] Vngrd Arcm Kn Ant Stab Implanted:Qty: 1 on 12/15/2017 by Darnell Raymond MD at [facility] Right: Knee [employer] 09/04/2022 [id number] / / [id number] Procedures Procedure Name Priority Date/Time Associated Diagnosis [...] or 2Vw (02/03/2025 12:30 PM CDT) Narrative [facility] [address] - 02/03/2025 12:30 PM CDT Please see progress note in Epic for results. Rex VALVERDE-C DIAGNOSTIC IMAGING ORDERABL ES Final Result Performing Organization Address [facility] de Phone Number [facility] [address] * XR Lumbar Spine 2 or 3Vw (02/03/2025 12:30 PM CDT) Narrative [facility] [address] - 02/03/2025 12:30 PM CDT Please see progress note in Epic for results. Rex VALVERDE-C DIAGNOSTIC IMAGING ORDERABL ES Final Result Performing Organization Address [facility] Co de Phone Number [facility] [address] * XR Knee Right 3Vw (02/03/2025 11:54 AM CDT) Narrative [facility] [address] - 02/03/2025 11:54 AM CDT Please see progress note in Epic for results. 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 03/15/2020 Insurance [facility] MANAGED MEDICARE ADV Advance Directives * Full Code (Latest Code Status on File) Date Activated Date Inactivated Comments 03/15/2020 5:30 AM 03/18/2020 5:47 PM * Full Code Date Activated Date Inactivated Comments 06/11/2019 10:10 PM 06/13/2019 3:14 PM * Full Code Date Activated Date Inactivated Comments 12/15/2017 2:10 PM 12/18/2017 2:18 PM Care Teams Home Health Occupational Therapist Relationship Specialty Start Date End Date Dano Han MD [address] [place] [address] PCP - General 04/03/20 [place] [address] [facility] [address] [place] [address] Orthopedic Surgery 10/30/17 [place] [address] [facility] [address] [place] [address] Ground Support Agent Cardiovascular Disease 03/28/[address] [place] [address] [facility] [address] [place] [address] Rheumatology 10/26/20
--- OUTSIDE RECORDS SUMMARY | 2025-05-06 13:16 | XMS_ITS | Encounter Summary ---
Author Organization [facility] Address [address] [place] [address] Care Team Providers Care Service Cashier Name Role Phone Cory Ayers DO Primary Care Provider Encounter Details Date Type Department Care Team (Latest Contact Info) Description 05/09/1999 Outpatient Historical HIS O[place]ERV[place] [address] [facility] [place] [address] Localized adiposity (Primary Dx) Social History Tobacco Use Types Packs/Day Years Used Date Smoking Tobacco: Never Assessed Comments Unknown Sex and Gender Information Value Date Recorded Sex Assigned at Not on file Legal Sex Female 4:21 AM HUMAN RESOURCES HR REPRESENTATIVE Gender Identity Not on file Sexual Orientation Not on file documented as of this encounter Plan of Treatment Not on file documented as of this encounter Visit Diagnoses Diagnosis Localized adiposity- Primary documented in this encounter Care Teams Service Cashier Relationship Specialty Start Date End Date Cory Ayers DO PCP - General 07/27/15 documented as of this encounter
--- OUTSIDE RECORDS SUMMARY | 2025-05-06 13:16 | XMS_ITS | Encounter Summary ---
Author Organization [facility] Address [address] [place] [address] Care Team Providers Care Asbestos Removal Supervisor Name Role Phone Cory Ayers DO Primary Care Provider Encounter Details Date Type Department Care Team (Late st Contact Info) Description 10/06/2002 Outpatient Historical HIS MRI DEPT [facility], [place] [address] [facility] [address] [place] [address] JOINT PAIN-L/LEG (Primary Dx) Social History Tobacco Use Types Packs/Day Years Used Date Smoking Tobacco: Never Assessed Comments Unknown Sex and Gender Information Value Date Recorded Sex Assigned at Not on file Legal Sex Female 4:21 AM CIGARETTE CATCHER Gender Identity Not on file Sexual Orientation Not on file documented as of this encounter Plan of Treatment Not on file documented as of this encounter Visit Diagnoses Diagnosis Pain in joint, lower leg- Primary documented in this encounter Care Teams Asbestos Removal Supervisor Relationship Specialty Start Date End Date Cory Ayers DO PCP - General 07/27/15 documented as of this encounter
--- OUTSIDE RECORDS SUMMARY | 2025-05-06 13:16 | XMS_ITS | Encounter Summary ---
Author Organization [facility] Address [address] [place] [address] Care Team Providers Care Director Of Rehabilitative Services Name Role Phone Cory Ayers DO Primary Care Provider Encounter Details Date Type Department Care Team (Latest Contact Info) Description 09/23/2002 Outpatient Historical HIS CARDIOPULMONARY Antolin Modi MD [address] [facility] [address] [address] SWELLING OF LIMB (Primary Dx) Social History Tobacco Use Types Packs/Day Years Used Date Smoking Tobacco: Never Assessed Comments Unknown Sex and Gender Information Value Date Recorded Sex Assigned at Not on file Legal Sex Female 4:21 AM TICKET DISPENSER CHANGER Gender Identity Not on file Sexual Orientation Not on file documented as of this encounter Plan of Treatment Not on file documented as of this encounter Visit Diagnoses Diagnosis Swelling of limb- Primary documented in this encounter Care Teams Director Of Rehabilitative Services Relationship Specialty Start Date End Date Cory Ayers DO PCP - General 07/27/15 documented as of this encounter
--- OUTSIDE RECORDS SUMMARY | 2025-05-06 13:16 | XMS_ITS | Encounter Summary ---
Author Organization [facility] Address [address] [place] [address] Care Team Providers Care Digital Camera Technician Name Role Phone Cory Ayers DO Primary Care Provider Encounter Details Date Type Department Care Team (Late st Contact Info) Description 09/17/2002 Outpatient Historical HIS LAB, [address] Antolin Modi MD [address] [place] [address] [address] [address] URIN TRACT INFECTION NOS (Primary Dx) Social History Tobacco Use Types Packs/Day Years Used Date Smoking Tobacco: Never Assessed Comments Unknown Sex and Gender Information Value Date Recorded Sex Assigned at Not on file Legal Sex Female 4:21 AM CHEF Gender Identity Not on file Sexual Orientation Not on file documented as of this encounter Plan of Treatment Not on file documented as of this encounter Visit Diagnoses Diagnosis Urinary tract infection, site not specified- Primary documented in this encounter Care Teams Digital Camera Technician Relationship Specialty Start Date End Date Cory Ayers DO PCP - General 07/27/15 documented as of this encounter
--- OUTSIDE RECORDS SUMMARY | 2025-05-06 13:16 | XMS_ITS | Encounter Summary ---
Author Organization [facility] Address [address] [place] [address] Care Team Providers Care Blue Prints Trimmer Name Role Phone Cory Ayers DO Primary [...] file Legal Sex Female 4:21 AM HUMAN FACTORS ERGONOMIST Gender Identity Not on file Sexual Orientation Not on file documented as of this encounter Plan of Treatment Not on file documented as of this encounter Visit Diagnoses Diagnosis Disorders of bursae and tendons in shoulder region, unspecified- Primary documented in this encounter Care Teams Blue Prints Trimmer Relationship Specialty Start Date End Date Cory Ayers DO PCP - General 07/27/15 documented as of this encounter
--- OUTSIDE RECORDS SUMMARY | 2025-05-06 13:16 | XMS_ITS | Encounter Summary ---
Author Organization [facility] Address [address] [place] [address] Care Team Providers Care Claim Inspector Name Role Phone Darnell Raymond MD Unavailable Stefani Mulligan MD Unavailable [phone] Dano Han MD Primary Care Provider Amalia Gregory MD Unavailable [phone] Encounter Details Date Type Department Care Team (Late st Contact Info) Description 12/06/2022 Lab Requisition [facility] Care DermPath Lab [address] [facility] [place] [address] Parth Crain MD [facility] [place] [address] Social History Tobacco Use Types Packs/Day Years Used Date Smoking Tobacco: Never Smokeless Tobacco: Never Alcohol Use Standard Drinks/Week Comments No 0 (1 standard drink = 0.6 oz pur e alcohol) Comments Unknown Sex and Gender Information Value Date Recorded Sex Assigned at Not on file Legal Sex Female 6:13 PM 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 DermPath Lab Received: 12/06/2022 06:35 AM [...] specimen consists of a shave biopsy measuring [id number], 8a3y7lf and 1a8s9xm. Jar 0. 3 12:30 PM CDT DERMATOPATHOLOGY [...] by the Dermatopathology Laboratory at [facility], directed by Dr. Maryam Mendoza. These tests need not be, and therefore are not, approved by the [place] Food and Drug Administration. The tests are used for clinical purposes. Billing Codes Specimen Charges Stain Charges 73328 1 3 12:30 PM CDT DERMATOPATHOLOGY LABORATORY Embedded Images 3 12:30 PM CDT DERMATOPATHOLOGY LABORATORY Pathology/Cytolo gy TISSUE SPECIMEN FROM SKIN / Unknown 12/05/2022 3:33 AM CDT 12/06/2022 6:35 AM CDT Parth Crain MD LAB - PATHOLOGY/CYTOLOGY ORDERAB LES Final Result DERMATOPATHOLOGY LABORATORY [facility] Department of Dermatology [address], [address] [phone] documented in this encounter Visit Diagnoses Not on filedocumented in this encounter Additional Health Concerns Infection Onset Date Last Indicated Resolved Time 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
--- OUTSIDE RECORDS SUMMARY | 2025-05-06 13:16 | XMS_ITS | Encounter Summary ---
Author Organization [facility] Address [address] [facility] Attn: Epic Prelude ADT [place] [address] Care Team Providers Care Marble Cutter Name Role Phone Cory Ayers DO Primary Care Provider Encounter Details Date Type Department Care Team (Late st Contact Info) Description 11/26/1989 Outpatient Historical Hiram Trivedi MD [facility] [place] [address] Social History Tobacco Use Types Packs/Day Years Used Date Smoking Tobacco: Never Assessed Comments Unknown Sex and Gender Information Value Date Recorded Sex Assigned at Not on file Legal Sex Female 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
--- OUTSIDE RECORDS SUMMARY | 2025-05-06 13:16 | XMS_ITS | Encounter Summary ---
Author Organization [facility] Address 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
--- OUTSIDE RECORDS SUMMARY | 2025-05-06 13:16 | XMS_ITS | Clinical Summary ---
Author Organization [facility] Address [address] [facility] [place] [address] Phone Care Team Providers Care Bag Filler Machine Operator Name Role Phone AgapitoCory molina Alvarez Primary [...] on file Legal Sex Female 4:21 AM DRINK MIXER Gender Identity Not on file Sexual Orientation [...] series) 2014 INFLUENZA VACCINE (#1) 2025 [place] [address] MEDICARE PART A AND B Za[employer]/TRUE [employer] PPO Care Teams Bag Filler Machine Operator Relationship Specialty Start Date End Date Cory Ayers DO PCP - General 07/27/15
--- OUTSIDE RECORDS SUMMARY | 2025-05-06 13:16 | XMS_ITS | Encounter Summary ---
Author Organization [facility] Address [address] [place] [address] Care Team Providers Care Personal Banking Officer Name Role Phone Darnell Raymond MD Unavailable Stefani Mulligan MD Unavailable [phone] Dano Han MD Primary Care Provider Amalia Gregory MD Unavailable [phone] Encounter Details Date Type Department Care Team (Late st Contact Info) Description 01/02/2023 Lab Requisition [facility] - DermPath Lab [address] [facility] [place] [address] Parth Crain MD [address] [place] [address] Social History Tobacco Use Types Packs/Day Years Used Date Smoking Tobacco: Never Smokeless Tobacco: Never Alcohol Use Standard Drinks/Week Comments No 0 (1 standard drink = 0.6 oz pur e alcohol) Comments Unknown Sex and Gender Information Value Date Recorded Sex Assigned at Not on file Legal Sex Female 6:13 PM INVESTOR Gender Identity Female 01/16/2021 10:27 AM CDT [...] AM CDT) Case Report Dermatopathology Report Case: [id number] Authorizing Provider: Parth Crain MD Collected: 01/01/2023 12:00 AM Ordering Location: [facility] DermPath Lab Received: 01/02/2023 08:56 AM [...] specimen consists of two shaved biopsies measuring [id number] and 6x6x1 mm. Jar 0. 3 5:48 [...] characteristic determined by the Dermatopathology Laboratory at [facility], directed by Dr. Maryam Mendoza. These tests need not be, and therefore are not, approved by the [place] Food and Drug Administration. The tests are used for clinical purposes. Billing Codes Specimen Charges Stain Charges 13576 1 3 5:48 PM CDT DERMATOPATHOLOGY LABORATORY Embedded Images 3 5:48 PM CDT DERMATOPATHOLOGY LABORATORY Pathology/Cytolog y TISSUE SPECIMEN FROM SKIN / Unknown 01/01/2023 01/02/2023 8:56 AM CDT Parth Crain MD LAB - PATHOLOGY/CYTOLOGY ORDERAB LES Final Result DERMATOPATHOLOGY LABORATORY [facility] Department of Dermatology [facility] Medicine [address] [place] [address], [address] [phone] documented in this encounter Visit Diagnoses Not on filedocumented in this encounter Additional Health Concerns Infection Onset Date Last Indicated Resolved Time 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
--- OUTSIDE RECORDS SUMMARY | 2025-05-06 13:16 | XMS_ITS | Encounter Summary ---
Author Organization [facility] Address [address] [place] [address] Care Team Providers Care Secondary School Special Ed Teacher Name Role Phone Cory Ayers DO Primary Care Provider Encounter Details Date Type Department Care Team (Late st Contact Info) Description 09/11/2002 Outpatient Historical [facility] Antolin Modi MD [address] [facility] [address] [address] COMPLIC-URINARY TRACT (Primary Dx) Social History Tobacco Use Types Packs/Day Years Used Date Smoking Tobacco: Never Assessed Comments Unknown Sex and Gender Information Value Date Recorded Sex Assigned at Not on file Legal Sex Female 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
--- OUTSIDE RECORDS SUMMARY | 2025-05-06 13:16 | XMS_ITS | Encounter Summary ---
Author Organization [facility] Address [address] [facility] Attn: Epic Prelude ADT [place] [address] Care Team Providers Care Pediatric Psychologist Name Role Phone Cory Ayers DO Primary Care Provider Encounter Details Date Type Department Care Team (Late st Contact Info) Description 01/08/1994 Outpatient Historical Hiram Trivedi MD [facility] [place] [address] Social History Tobacco Use Types Packs/Day Years Used Date Smoking Tobacco: Never Assessed Comments Unknown Sex and Gender Information Value Date Recorded Sex Assigned at Not on file Legal Sex Female 4: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
--- OUTSIDE RECORDS SUMMARY | 2025-05-06 13:16 | XMS_ITS | Encounter Summary ---
Author Organization [facility] Address [address] [place] [address] Care Team Providers Care Manufactured Buildings Supervisor Name Role Phone Cory Ayers DO Primary Care Provider Encounter Details Date Type Department Care Team (Late st Contact Info) Description 07/12/2002 Outpatient Historical [facility] Support Serv. (Adt Cardiology-[facility]) [address] [place] [phone] Darnell Hernandez Social History Tobacco Use Types Packs/Day Years Used Date Smoking Tobacco: Never Assessed Comments Unknown Sex and Gender Information Value Date Recorded Sex Assigned at Not on file Legal Sex Female 4:21 AM RECRUITMENT CONSULTANT Gender Identity Not on file Sexual Orientation Not on file documented as of this encounter Plan of Treatment Not on file documented as of this encounter Visit Diagnoses Not on filedocumented in this encounter Care Teams Manufactured Buildings Supervisor Relationship Specialty Start Date End Date Cory Ayers DO PCP - General 07/27/15 documented as of this encounter
--- OUTSIDE RECORDS SUMMARY | 2025-05-06 13:16 | XMS_ITS | Encounter Summary ---
Author Organization [facility] Address 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
--- OUTSIDE RECORDS SUMMARY | 2025-05-06 13:16 | XMS_ITS | Encounter Summary ---
Author Organization [facility] Address [address] [place] [address] Care Team Providers Care Back Shoe Operator Name Role Phone Cory Ayersian Primary Care [...] on file Legal Sex Female 4:21 AM GLOVE FACTORY SEWER Gender Identity Not on file Sexual Orientation [...] and non- Americans is available on the [facility] Intranet at: [email or web address] Select: Lab Policies and Procedures Select: Reference Ranges - GFR 03/27/2007 5:55 AM CDT [employer] CHEMISTRY ORDERABLES Edited Performing Organization Address City/[facility]/[place] de Phone Number INTERFACE SYSTEM Refer to clinic/hospital department * HEMOGLOBIN AND HEMATOCRIT (03/27/2007 5:55 AM CDT) HEMOGLOBIN 13.7 11.8 - 14.8 g/dL INTERFACE SYSTEM HEMATOCRIT 40.3 35.5 - 44.0 % INTERFACE SYSTEM 03/27/2007 5:55 AM CDT [employer] HEMATOLOGY ORDERABLES Edited Performing Organization Address City/State/[facility] Co de Phone Number INTERFACE SYSTEM Refer to clinic/hospital department documented in this encounter Visit Diagnoses Diagnosis Specified congenital anomalies of breast- Primary documented in this encounter Care Teams Back Shoe Operator Relationship Specialty Start Date End Date Cory Ayers DO PCP - General 07/27/15 documented as of this encounter
--- OUTSIDE RECORDS SUMMARY | 2025-05-06 13:16 | XMS_ITS | Encounter Summary ---
Author Organization [facility] Address [address] [place] [address] Care Team Providers Care Supervisor Record Press Name Role Phone Cory Ayers DO Primary Care Provider Encounter Details Date Type Department Care Team (Late st Contact Info) Description 06/23/2001 Outpatient Historical [facility] INTERNISTS Hiram Trivedi MD [address] [place] [address] Social History Tobacco Use Types Packs/Day Years Used Date Smoking Tobacco: Never Assessed Comments Unknown Sex and Gender Information Value Date Recorded Sex Assigned at Not on file Legal Sex Female 4:21 AM TELECOM ENGINEER Gender Identity Not on file Sexual Orientation Not on file documented as of this encounter Plan of Treatment Not on file documented as of this encounter Visit Diagnoses Not on filedocumented in this encounter Care Teams Supervisor Record Press Relationship Specialty Start Date End Date Cory Ayers DO PCP - General 07/27/15 documented as of this encounter
--- OUTSIDE RECORDS SUMMARY | 2025-05-06 13:16 | XMS_ITS | Clinical Summary ---
Author Organization [facility] Address [address] [place] [address] Care Team Providers Care Welding Estimator Name Role Phone Dano Han MD Primary [...] on file Legal Sex Female 3:34 AM REMOTE INPATIENT CODER Gender Identity Not on file Sexual Orientation [...] [facility] MEDICARE ADVANTAGE Care Teams Welding Estimator Relationship Specialty Start Date End Date Dano Han MD PCP - General Family Practice 08/31/21
--- OUTSIDE RECORDS SUMMARY | 2025-05-06 13:16 | XMS_ITS | Encounter Summary ---
Author Organization [facility] Address [address] [place] [address] Care Team Providers Care Epic Cupid Specialists Name Role Phone Cory Ayers DO Primary Care Provider Darnell Raymond MD Unavailable Esthela Barksdale MD Primary Care Provider Un available Cory Ayers DO Primary Care Provider Cory Ayers DO Primary Care Provider Dano Han MD Primary Care Provider Stefani Mulligan MD Unavailable [phone] Coyr Ayers DO Primary Care Provider [phone] Dano Han MD Primary Care Provider Amalia Gregory MD Unavailable [phone] Encounter Details Date Type Department Care Team (Late st Contact Info) Description 11/26/2017 [facility] Outpatient Visit [facility] [address] [place] [address] [place] [address] [address] Social History Tobacco Use Types Packs/Day Years Used Date Smoking Tobacco: Never Smokeless Tobacco: Never Alcohol Use Standard Drinks/Week Comments No 0 (1 standard drink = 0.6 oz pur e alcohol) Comments Unknown Sex and Gender Information Value Date Recorded Sex Assigned at Not on file Legal Sex Female 6:13 PM FOOD ANALYST Gender Identity Female 01/16/2021 10:27 AM [...] documented as of this encounter Care Teams Epic Cupid Specialists Relationship Specialty Start Date End Date Cory Ayesr DO PCP - General Internal Medicine 10/30/17 06/10/19 Esthela [place]ks[place] MD [address] [place] [address] PCP - General Family Medicine 07/07/19 01/16/20 Cory Ayers DO [address] [place] [address] PCP - General 01/17/20 03/19/20 Cory Ayers DO [address] [place] [address] PCP - General 03/23/20 03/27/20 Dano Han MD [address] [place] [address] PCP - General Family Medicine 03/28/20 03/30/20 Cory Ayers DO [address] [address] PCP - General 03/31/20 04/02/20 Dano Han MD [address] [place] [address] PCP - General 04/03/20 [place] [address] [place] [address] Orthopedic Surgery 10/30/17 [place] [address] [place] [address] Mud Engineer Cardiovascular Disease 03/28/20 [place] [address] [address] [place] [address] Rheumatology 10/26/20 documented as of this encounter
--- OUTSIDE RECORDS SUMMARY | 2025-05-06 13:16 | XMS_ITS | Encounter Summary ---
Author Organization [facility] Address [address] [place] [address] Care Team Providers Care Milieu Therapist Name Role Phone Cory Ayers DO Primary Care Provider Encounter Details Date Type Department Care Team (Late st Contact Info) Description 10/29/1999 Outpatient Historical [facility],NON-PATIENT Hiram Trivedi MD [address] [place] [address] Social History Tobacco Use Types Packs/Day Years Used Date Smoking Tobacco: Never Assessed Comments Unknown Sex and Gender Information Value Date Recorded Sex Assigned at Not on file Legal Sex Female 4:21 AM ONLINE ACTIVIST Gender Identity Not on file Sexual Orientation Not on file documented as of this encounter Plan of Treatment Not on file documented as of this encounter Visit Diagnoses Not on filedocumented in this encounter Care Teams Milieu Therapist Relationship Specialty Start Date End Date Cory Ayers DO PCP - General 07/27/15 documented as of this encounter
--- OUTSIDE RECORDS SUMMARY | 2025-05-06 13:16 | XMS_ITS | Encounter Summary ---
Author Organization [facility] Address [address] [facility] Attn: [place] [address] Care Team Providers Care Marketing Budget Analyst Name Role Phone Cory Ayers DO Primary Care Provider Encounter Details Date Type Department Care Team (Late st Contact Info) Description 10/06/1997 Outpatient Historical Conversion, History Hiram Trivedi MD [address] [place] [address] Social History Tobacco Use Types Packs/Day Years Used Date Smoking Tobacco: Never Assessed Comments Unknown Sex and Gender Information Value Date Recorded Sex Assigned at Not on file Legal Sex Female 4:21 AM DAY TREATMENT CLINICIAN/ART THERAPIST Gender Identity Not on file Sexual Orientation Not on file documented as of this encounter Plan of Treatment Not on file documented as of this encounter Visit Diagnoses Not on filedocumented in this encounter Care Teams Marketing Budget Analyst Relationship Specialty Start Date End Date Cory Ayers DO PCP - General 07/27/15 documented as of this encounter
--- OUTSIDE RECORDS SUMMARY | 2025-05-06 13:16 | XMS_ITS | Encounter Summary ---
Author Organization [facility] Address [address] [place] [address] Care Team Providers Care Product Support Consultant Name Role Phone Cory Ayers DO Primary Care Provider Encounter Details Date Type Department Care Team (Late st Contact Info) Description 02/01/2000 Outpatient Historical HIS G [facility] INTERNISTS Hiram Trivedi MD [address] [place] [address] Social History Tobacco Use Types Packs/Day Years Used Date Smoking Tobacco: Never Assessed Comments Unknown Sex and Gender Information Value Date Recorded Sex Assigned at Not on file Legal Sex Female 4:21 AM INTERNAL RECRUITER Gender Identity Not on file Sexual Orientation Not on file documented as of this encounter Plan of Treatment Not on file documented as of this encounter Visit Diagnoses Not on filedocumented in this encounter Care Teams Product Support Consultant Relationship Specialty Start Date End Date Cory Ayers DO PCP - General 07/27/15 documented as of this encounter
[2025-05-06 13:46] LABS: Hematocrit 42.0 % (37.0-47.0); Hemoglobin 13.3 g/dL (12.0-15.0); Mean Corpuscular HGB Conc 31.7 g/dl (32-36); Mean Corpuscular Hemoglobin 29.8 pg (26-34); Mean Corpuscular Volume 94.2 fl (80-100); Platelet Count Result 162 k/mm3 (150-375); Red Blood Count 4.46 M/mm3 (4.2-5.4); White Blood Count 8.6 K/mm3 (4.5-10.0)
[2025-05-06 13:58] LABS: INR 1.0; Prothrombin Time 12.9 Seconds (11.1-14.7)
[2025-05-06 14:08] LABS: Alanine Aminotransferase 53 U/L (6-35); Albumin Level 3.5 g/dL (3.5-5.1); Alkaline Phosphatase 184 U/L (38-126); Anion Gap 6 mmol/L (4-12); Aspartate Amino Transferase 69 U/L (14-36); Bilirubin,Total 0.7 mg/dL (0.2-1.3); Blood Urea Nitrogen 19 mg/dL (7-17); CRP 1.5 mg/dL (<1.0); Calcium 9.2 mg/dL (8.4-10.2); Carbon Dioxide 26 mmol/L (22-30); Chloride 106 mmol/L (98-107); Estimated Glomerular Filt Rate > 60; Glucose 99 mg/dL (65-110); Potassium 3.5 mmol/L (3.4-5.0); Sodium 138 mmol/L (137-145); Total Protein 6.0 g/dL (6.3-8.2)
== END 2025-05-06 13:12 | disposition home or self-care (01) ==
PROVIDERS: PCP Family Medicine; Visit Provider Nurse Practitioner
DX: K74.60 Unspecified cirrhosis of liver (principal); R19.7 Diarrhea, unspecified
CPT/HCPCS: 36415; 80053; 82105; 85027; 85610; 86140

== ENCOUNTER 2025-05-07 09:58 | Outpatient (NON) | payer MEDICARE, SELFPAY ==
[2025-05-07 11:25] LABS: Toxigenic C. Diff NEGATIVE (NEGATIVE)
[2025-05-11 16:41] LABS: Calprotectin, Fecal 364
== END 2025-05-07 09:59 | disposition home or self-care (01) ==
PROVIDERS: PCP Family Medicine; Visit Provider Nurse Practitioner
DX: R19.7 Diarrhea, unspecified (principal)
CPT/HCPCS: 83993; 87045; 87427; 87493

== ENCOUNTER 2025-05-10 08:03 | Outpatient (CLI) | payer MEDICARE, SELFPAY ==
--- NOTE | ~2025-05-10 | US_ITS ---
US abdomen limited Indication: cirrhosis, HCC, possible ascites, biliary dilation Comparison: None Technique: Suarez-scale and color Doppler images were obtained. Findings: LIVER: Liver measures 13.8 cm. Mild increased echogenicity of the liver. The liver contours are nodular. . GALLBLADDER/BILIARY: Cholelithiasis, no wall thickening, no pericholecystic fluid. CBD 6 mm. Brice sign negative. PANCREAS: Pancreas limited by bowel gas. Right Kidney: Right kidney was not imaged. Impression: 1. Mild cirrhotic disease of the liver. No ascites Reviewed, dictated and finalized at location P. Impression: 1. Mild cirrhotic disease of the liver. No ascites
== END 2025-05-10 08:04 | disposition home or self-care (01) ==
LOC: GOSHIMG 08:04
PROVIDERS: PCP Nurse Practitioner; Visit Provider Nurse Practitioner
DX: R79.89 Other specified abnormal findings of blood chemistry (principal); K83.8 Other specified diseases of biliary tract; K74.60 Unspecified cirrhosis of liver
CPT/HCPCS: 76705

== ENCOUNTER 2025-05-13 11:31 | Outpatient (CLI) | payer MEDICARE, SELFPAY ==
--- NOTE | ~2025-05-13 | XR_ITS ---
EXAMINATION: XR abdomen/kub 1V DATE: 05/13/2025 11:50 INDICATION: Diarrhea. TECHNIQUE: A supine view of the abdomen on 2 radiographs was obtained. COMPARISON: None. FINDINGS: Small to moderate amount of air and stool in the nondilated large bowel. Small amount of air in nondilated small bowel. Moderate S-shaped curvature of the thoracolumbar spine. No radiographic evidence for renal calculi. There are a few less than 1.0 cm calcifications projecting over the pelvis which may represent phleboliths, however, a distal ureteral stone or bladder stone or possible. IMPRESSION: 1. Nonspecific abdomen with a small to moderate amount of stool. If symptoms persist or worsen, consider a short-term follow-up study or additional imaging for further assessment. Reviewed, dictated and finalized at location Q. IMPRESSION: 1. Nonspecific abdomen with a small to moderate amount of stool. If symptoms persist or worsen, consider a short-term follow-up study or additio nal imaging for further assessment.
== END 2025-05-13 11:32 | disposition home or self-care (01) ==
LOC: GOSHIMG 11:32
PROVIDERS: PCP Nurse Practitioner; Visit Provider Nurse Practitioner
DX: R93.3 Abnormal findings on diagnostic imaging of other parts of digestive tract (principal); R15.9 Full incontinence of feces
CPT/HCPCS: 74018

== ENCOUNTER 2025-06-08 13:30 | Outpatient (CLI) | payer MEDICARE, SELFPAY ==
--- OUTSIDE RECORDS SUMMARY | 2025-06-08 15:00 | XMS_ITS | Encounter Summary ---
Author Organization [facility] Health Address [address] [place] [address] Care Team Providers Care Grey Iron Molder Name Role Phone Cory Ayers DO Primary Care Provider Darnell Raymond MD Unavailable Esthela Barksdale MD Primary Care Provider Un available Cory Ayers DO Primary Care Provider Cory Ayers DO Primary Care Provider Dano Han MD Primary Care Provider Stefani Mulligan MD Unavailable [phone] Cory Ayers DO Primary Care Provider [phone] Dano Han MD Primary Care Provider Amalia Gregory MD Unavailable [phone] Encounter Details Date Type Department Care Team (Late st Contact Info) Description 11/26/2017 [facility] Outpatient Visit [facility] [address] [place] [address] [place] [address] [address] Social History Tobacco Use Types Packs/Day Years Used Date Smoking Tobacco: Never Smokeless Tobacco: Never Alcohol Use Standard Drinks/Week Comments No 0 (1 standard drink = 0.6 oz pur e alcohol) Comments Unknown Sex and Gender Information Value Date Recorded Sex Assigned at Not on file Legal Sex Female 6:[address]IVER Gender Identity Female 01/16/2021 10:27 AM CDT [...] documented as of this encounter Care Teams Grey Iron Molder Relationship Specialty Start Date End Date Cory Ayers DO PCP - General Internal Medicine 10/30/17 06/10/19 Esthela Barksdale MD [address] [place] [address] PCP - General Family Medicine 07/07/19 01/16/20 Cory Ayers DO [address] [place] [address] PCP - General 01/17/20 03/19/20 Cory Ayers DO [address] [place] [address] PCP - General 03/23/20 03/27/20 Dano Han [place] [address] [place] [address] PCP - General Family Medicine 03/28/20 03/30/20 Cory Ayers DO [address] [place] [address] PCP - General 03/31/20 04/02/20 Dano Han MD [address] [place] [address] PCP - General 04/03/20 [place] [address] [place] [address] Orthopedic Surgery 10/30/17 [place] [address] [place] [address] Formula Technician Cardiovascular Disease 03/28/20 [place] [address] [address] [place] [address] Rheumatology 10/26/20 documented as of this encounter
--- OUTSIDE RECORDS SUMMARY | 2025-06-08 15:01 | XMS_ITS | Encounter Summary ---
Author Organization [facility] Address [address] [facility] Attn: [place] [address] Care Team Providers Care Lock Up Worker Name Role Phone Cory Ayers DO Primary Care Provider Encounter Details Date Type Department Care Team (Late st Contact Info) Description 10/06/1997 Outpatient Historical Conversion, History Hiram Trivedi MD [address] [place] [address] Social History Tobacco Use Types Packs/Day Years Used Date Smoking Tobacco: Never Assessed Comments Unknown Sex and Gender Information Value Date Recorded Sex Assigned at Not on file Legal Sex Female 4:21 AM PIE BOTTOMER Gender Identity Not on file Sexual Orientation Not on file documented as of this encounter Plan of Treatment Not on file documented as of this encounter Visit Diagnoses Not on filedocumented in this encounter Care Teams Lock Up Worker Relationship Specialty Start Date End Date Cory Ayers DO PCP - General 07/27/15 documented as of this encounter
--- OUTSIDE RECORDS SUMMARY | 2025-06-08 15:01 | XMS_ITS | Encounter Summary ---
Author Organization [facility] Address [address] [place] [address] Care Team Providers Care Barrel Washer Name Role Phone Cory Ayersian Primary Care [...] on file Legal Sex Female 4:21 AM NUCLEAR REACTOR TECHNICIAN Gender Identity Not on file Sexual [...] on the [facility] Intranet at: [email or web address] Select: Lab Policies and Procedures Select: Reference Ranges - GFR 03/27/2007 5:55 AM CDT [employer] CHEMISTRY ORDERABLES Edited Performing Organization Address City/[facility] de Phone Number INTERFACE SYSTEM Refer to clinic/hospital department * HEMOGLOBIN AND HEMATOCRIT (03/27/2007 5:55 AM CDT) HEMOGLOBIN 13.7 11.8 - 14.8 g/dL INTERFACE SYSTEM HEMATOCRIT 40.3 35.5 - 44.0 % INTERFACE SYSTEM 03/27/2007 5:55 AM CDT [employer] HEMATOLOGY ORDERABLES Edited Performing Organization Address City/State/[facility] Co de Phone Number INTERFACE SYSTEM Refer to clinic/hospital department documented in this encounter Visit Diagnoses Diagnosis Specified congenital anomalies of breast- Primary documented in this encounter Care Teams Barrel Washer Relationship Specialty Start Date End Date Cory Ayers DO PCP - General 07/27/15 documented as of this encounter
--- OUTSIDE RECORDS SUMMARY | 2025-06-08 15:01 | XMS_ITS | Encounter Summary ---
Author Organization [facility] Address [address] [place] [address] Care Team Providers Care Field Agent Name Role Phone Cory Ayers DO Primary Care Provider Encounter Details Date Type Department Care Team (Late st Contact Info) Description 02/01/2000 Outpatient Historical [facility] Hiram Trivedi MD [address] [place] [address] Social History Tobacco Use Types Packs/Day Years Used Date Smoking Tobacco: Never Assessed Comments Unknown Sex and Gender Information Value Date Recorded Sex Assigned at Not on file Legal Sex Female 4:21 AM DISHWASHER Gender Identity Not on file Sexual Orientation Not on file documented as of this encounter Plan of Treatment Not on file documented as of this encounter Visit Diagnoses Not on filedocumented in this encounter Care Teams Field Agent Relationship Specialty Start Date End Date Cory Ayers DO PCP - General 07/27/15 documented as of this encounter
--- OUTSIDE RECORDS SUMMARY | 2025-06-08 15:01 | XMS_ITS | Encounter Summary ---
Author Organization [facility] Address [address] [facility] [place] [address] Care Team Providers Care Maternity Floor Supervisor Name Role Phone Darnell Raymond MD Unavailable Stefani Mulligan MD Unavailable [phone] Dano Han MD Primary Care Provider Amalia Gregory MD Unavailable [phone] Encounter Details Date Type Department Care Team (Late st Contact Info) Description 12/06/2022 Lab Requisition [facility] Care DermPath Lab [address] [facility] [place] [address] Parth Crain MD [facility] [place] [address] Social History Tobacco Use Types Packs/Day Years Used Date Smoking Tobacco: Never Smokeless Tobacco: Never Alcohol Use Standard Drinks/Week Comments No 0 (1 standard drink = 0.6 oz pur e alcohol) Comments Unknown Sex and Gender Information Value Date Recorded Sex Assigned at Not on file Legal Sex Female 6:13 PM PROPERTY SPECIALIST Gender Identity Female 01/16/2021 10:27 AM [...] AM CDT) Case Report Dermatopathology Report Case: [id number] Authorizing Provider: Parth Crain MD Collected: 12/05/2022 03:33 AM Ordering Location: [facility] DermPath Lab Received: 12/06/2022 06:35 AM [...] specimen consists of a shave biopsy measuring 79r6t6cf, 2i8r9qy and 2r1s5dd. Jar 0. 3 12:30 PM CDT DERMATOPATHOLOGY [...] characteristic determined by the Dermatopathology Laboratory at [facility], directed by Dr. Maryam Mendoza. These tests need not be, and therefore are not, approved by the [place] Food and Drug Administration. The tests are used for clinical purposes. Billing Codes Specimen Charges Stain Charges 38311 1 3 12:30 PM CDT DERMATOPATHOLOGY LABORATORY Embedded Images 3 12:30 PM CDT DERMATOPATHOLOGY LABORATORY Pathology/Cytolo gy TISSUE SPECIMEN FROM SKIN / Unknown 12/05/2022 3:33 AM CDT 12/06/2022 6:35 AM CDT Parth Crain MD LAB - PATHOLOGY/CYTOLOGY ORDERAB LES Final Result DERMATOPATHOLOGY LABORATORY [facility] Department of Dermatology [address], [address] [phone] documented in this encounter Visit Diagnoses Not on filedocumented in this encounter Additional Health Concerns Infection Onset Date Last Indicated Resolved Time 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 03/15/2020 documented as of this encounter Care Teams Maternity Floor Supervisor Relationship Specialty Start Date End Date Dano Han MD [address] [place] [address] PCP - General 04/03/20 [place] [address] [address] Orthopedic Surgery 10/30/17 [place] [address] [facility] [address] [place] [address] Grinder Set Up Operator Jig Cardiovascular Disease 03/28/20 [place] [address] [facility] [address] [place] [address] Rheumatology 10/26/20 documented as of this encounter
--- OUTSIDE RECORDS SUMMARY | 2025-06-08 15:01 | XMS_ITS | Encounter Summary ---
Author Organization [facility] Address [address] [place] [address] Care Team Providers Care Supervisor Food Checkers And Cashiers Name Role Phone Cory Ayers DO Primary Care Provider Encounter Details Date Type Department Care Team (Late st Contact Info) Description 10/06/2002 Outpatient Historical HIS MRI DEPT [facility], [place] [address] [facility] [address] [place] [address] JOINT PAIN-L/LEG (Primary Dx) Social History Tobacco Use Types Packs/Day Years Used Date Smoking Tobacco: Never Assessed Comments Unknown Sex and Gender Information Value Date Recorded Sex Assigned at Not on file Legal Sex Female 4:21 AM CORONARY CARE UNIT NURSE Gender Identity Not on file Sexual Orientation Not on file documented as of this encounter Plan of Treatment Not on file documented as of this encounter Visit Diagnoses Diagnosis Pain in joint, lower leg- Primary documented in this encounter Care Teams Supervisor Food Checkers And Cashiers Relationship Specialty Start Date End Date Cory Ayers DO PCP - General 07/27/15 documented as of this encounter
--- OUTSIDE RECORDS SUMMARY | 2025-06-08 15:01 | XMS_ITS | Encounter Summary ---
Author Organization [facility] Address [address] [place] [address] Care Team Providers Care Electrical And Instrumentation Mechanic Name Role Phone Cory Ayers DO Primary Care Provider Encounter Details Date Type Department Care Team (Late st Contact Info) Description 06/23/2001 Outpatient Historical HIS G [facility] Hiram Trivedi MD [address] [place] [address] Social History Tobacco Use Types Packs/Day Years Used Date Smoking Tobacco: Never Assessed Comments Unknown Sex and Gender Information Value Date Recorded Sex Assigned at Not on file Legal Sex Female 4:21 AM DOUBLE BACKER Gender Identity Not on file Sexual Orientation Not on file documented as of this encounter Plan of Treatment Not on file documented as of this encounter Visit Diagnoses Not on filedocumented in this encounter Care Teams Electrical And Instrumentation Mechanic Relationship Specialty Start Date End Date Cory Ayers DO PCP - General 07/27/15 documented as of this encounter
--- OUTSIDE RECORDS SUMMARY | 2025-06-08 15:01 | XMS_ITS | Encounter Summary ---
Author Organization [facility] Address [address] [place] [address] Care Team Providers Care Melting Supervisor Name Role Phone Cory Ayers DO [...] on file Legal Sex Female 4:21 AM HIGH SCHOOL GUIDANCE COUNSELOR Gender Identity Not on file Sexual Orientation Not on file documented as of this encounter Plan of Treatment Not on file documented as of this encounter Visit Diagnoses Diagnosis Disorders of bursae and tendons in shoulder region, unspecified- Primary documented in this encounter Care Teams Melting Supervisor Relationship Specialty Start Date End Date Cory Ayers DO PCP - General 07/27/15 documented as of this encounter
--- OUTSIDE RECORDS SUMMARY | 2025-06-08 15:01 | XMS_ITS | Encounter Summary ---
Author Organization [facility] Address [address] [place] [address] Care Team Providers Care Lower School Music Teacher Name Role Phone Cory Ayers DO Primary Care Provider Encounter Details Date Type Department Care Team (Latest Contact Info) Description 05/09/1999 Outpatient Historical HIS [place] [address] [facility] [place] [address] Localized adiposity (Primary Dx) Social History Tobacco Use Types Packs/Day Years Used Date Smoking Tobacco: Never Assessed Comments Unknown Sex and Gender Information Value Date Recorded Sex Assigned at Not on file Legal Sex Female 4:21 AM PRN PHYSICAL THERAPIST Gender Identity Not on file Sexual Orientation Not on file documented as of this encounter Plan of Treatment Not on file documented as of this encounter Visit Diagnoses Diagnosis Localized adiposity- Primary documented in this encounter Care Teams Lower School Music Teacher Relationship Specialty Start Date End Date Cory Ayers DO PCP - General 07/27/15 documented as of this encounter
--- OUTSIDE RECORDS SUMMARY | 2025-06-08 15:01 | XMS_ITS | Encounter Summary ---
Author Organization [facility] Address [address] [place] [address] Care Team Providers Care Correctional Guard Name Role Phone Cory Ayers DO Primary Care Provider Encounter Details Date Type Department Care Team (Late st Contact Info) Description 10/29/1999 Outpatient Historical HIS G [facility] INTERNISTS Hiram Trivedi MD [facility] [place] [address] Social History Tobacco Use Types Packs/Day Years Used Date Smoking Tobacco: Never Assessed Comments Unknown Sex and Gender Information Value Date Recorded Sex Assigned at Not on file Legal Sex Female 4:21 AM REFRIGERATION MECHANIC Gender Identity Not on file Sexual Orientation Not on file documented as of this encounter Plan of Treatment Not on file documented as of this encounter Visit Diagnoses Not on filedocumented in this encounter Care Teams Correctional Guard Relationship Specialty Start Date End Date Cory Ayers DO PCP - General 07/27/15 documented as of this encounter
--- OUTSIDE RECORDS SUMMARY | 2025-06-08 15:01 | XMS_ITS | Encounter Summary ---
Author Organization [facility] Address [address] [facility] [place] [address] Care Team Providers Care Branch Manager Trainee Name Role Phone Darnell Raymond MD Unavailable Stefani Mulligan MD Unavailable [phone] Dano Han MD Primary Care Provider Amalia Gregory MD Unavailable [phone] Encounter Details Date Type Department Care Team (Late st Contact Info) Description 01/02/2023 Lab Requisition [facility] - DermPath Lab [address] [facility] [place] [address] Parth Crain MD [address] [place] [address] Social History Tobacco Use Types Packs/Day Years Used Date Smoking Tobacco: Never Smokeless Tobacco: Never Alcohol Use Standard Drinks/Week Comments No 0 (1 standard drink = 0.6 oz pur e alcohol) Comments Unknown Sex and Gender Information Value Date Recorded Sex Assigned at Not on file Legal Sex Female 6:13 PM DESIGN LEADER Gender Identity Female 01/16/2021 10:27 AM CDT [...] AM CDT) Case Report Dermatopathology Report Case: [id number] Authorizing Provider: Parth Crain MD Collected: 01/01/2023 [...] specimen consists of two shaved biopsies measuring 48m24l2 and 6x6x1 mm. Jar 0. 3 5:48 [...] characteristic determined by the Dermatopathology Laboratory at [facility], directed by Dr. Maryam Mendoza. These tests need not be, and therefore are not, approved by the [place] Food and Drug Administration. The tests are used for clinical purposes. Billing Codes Specimen Charges Stain Charges 75025 1 3 5:48 PM CDT DERMATOPATHOLOGY LABORATORY Embedded Images 3 5:48 PM CDT DERMATOPATHOLOGY LABORATORY Pathology/Cytolog y TISSUE SPECIMEN FROM SKIN / Unknown 01/01/2023 01/02/2023 8:56 AM CDT Parth Crain MD LAB - PATHOLOGY/CYTOLOGY ORDERAB LES Final Result DERMATOPATHOLOGY LABORATORY [facility] Department of Dermatology 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
--- OUTSIDE RECORDS SUMMARY | 2025-06-08 15:01 | XMS_ITS | Clinical Summary ---
Author Organization [facility] Address [address] [facility] [place] [address] Care Team Providers Care Chicken Cleaner Name Role Phone Darnell Raymond MD Unavailable [phone] Stefani Mulligan MD Unavailable [phone] Dano Han MD Primary Care Provider Amalia Gregory MD Unavailable [phone] Source Comments [facility],non-owned Affiliates and Associated Physician Practices is amultiple site organization consisting of ambulatory clinics and hospital sitesin [place], [place], [place] and [place]. This disclosure is being madepursuant to the Care Everywhere program and may not contain all information available regarding this patient. Last updated 18.[facility] [employer] Allergies No known active allergies Medications * [...] on file Legal Sex Female 6:13 PM LIFTER/DRIVER Gender Identity Female 01/16/2021 10:27 AM CDT Sexual Orientation Not on file Last Filed Vital Signs Vital Sign Reading Time Taken Comments Blood Pressure 159/91 10/08/2023 10:15 AM LIFTER/DRIVER Pulse 76 10/08/2023 10:15 AM LIFTER/DRIVER Temperature 36.2 C (97.1 F) 07/12/2021 8:47 AM LIFTER/DRIVER Respiratory Rate 18 03/26/2021 10:24 AM CDT Oxygen Saturation 98% 10/26/2020 11:25 AM CDT Inhaled Oxygen Concentration - - Weight 70.3 kg (155 lb) 10/08/2023 10:15 AM LIFTER/DRIVER Height 157.5 cm (5' 2) 10/08/2023 10:15 AM LIFTER/DRIVER Body Mass Index 28.35 10/08/2023 10:15 AM LIFTER/DRIVER Plan of Treatment Health Maintenance Due Date [...] this topic Medical Devices Implanted Type Area Biochemistry Professor Device Identifier Shelf Expiration Date Model / Serial / Lot Cmnt Bone Cblt 40gm Hvisc Strl Implanted:Qty: 1 on 12/15/2017 by Darnell Raymond MD at [facility] Right: Knee [employer] 06/10/2019 [id number] / / [id number] Cmpnt Fem Kn Rt Cr Cmnt Prm Vngrd Intlk Implanted:Qty: 1 on 12/15/2017 by Darnell Raymond MD at [facility] Right: Knee [employer] 09/14/2027 [id number] / / [id number] Tray Tib 71mm Kn Cocr I Beam Implanted:Qty: 1 on 12/15/2017 by Darnell Raymond MD at [facility] Right: Knee [employer] 08/07/2027 [id number] / / [id number] Cmpnt Ptlr 28mm 1 Pg Wire Ascnt Arcm Kn Implanted:Qty: 1 on 12/15/2017 by Darnell Raymond MD at [facility] Right: Knee [employer] 09/01/2022 [id number] / / [id number] Brng [id number] Vngrd Arcm Kn Ant Stab Implanted:Qty: 1 on 12/15/2017 by Darnell Raymond MD at [facility] Right: Knee [employer] 09/04/2022 [id number] / / [id number] Additional Health Concerns Infection Onset Date 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 03/15/2020 Insurance [employer] MANAGED MEDICARE ADV Advance Directives * Full Code (Latest Code Status on File) Date Activated Date Inactivated Comments 03/15/2020 5:30 AM 03/18/2020 5:47 PM * Full Code Date Activated Date Inactivated Comments 06/11/2019 10:10 PM 06/13/2019 3:14 PM * Full Code Date Activated Date Inactivated Comments 12/15/2017 2:10 PM 12/18/2017 2:18 PM Care Teams Chicken Cleaner Relationship Specialty Start Date End Date Dano Han MD [address] [place] [address] PCP - General 04/03/20 [place] [address] [address] [place] [address] Orthopedic Surgery 10/30/17 [place] [address] [facility] [address] [place] [address] Admitting Supervisor Cardiovascular Disease 03/28/20 [place] [address] [facility] [address] [place] [address] Rheumatology 10/26/20
--- OUTSIDE RECORDS SUMMARY | 2025-06-08 15:01 | XMS_ITS | Encounter Summary ---
Author Organization [facility] Address [address] [facility] Attn: Epic Prelude ADT [place] [address] Care Team Providers Care Rn Corrections Name Role Phone Cory Ayers DO Primary Care Provider Encounter Details Date Type Department Care Team (Late st Contact Info) Description 01/08/1994 Outpatient Historical Hiram Trivedi MD [facility] [place] [address] Social History Tobacco Use Types Packs/Day Years Used Date Smoking Tobacco: Never Assessed Comments Unknown Sex and Gender Information Value Date Recorded Sex Assigned at Not on file Legal Sex Female 4:21 AM TOP WADDY Gender Identity Not on file Sexual Orientation Not on file documented as of this encounter Plan of Treatment Not on file documented as of this encounter Visit Diagnoses Not on filedocumented in this encounter Care Teams Rn Corrections Relationship Specialty Start Date End Date Cory Ayers DO PCP - General 07/27/15 documented as of this encounter
--- OUTSIDE RECORDS SUMMARY | 2025-06-08 15:01 | XMS_ITS | Encounter Summary ---
Author Organization [facility] Address [address] [place] [address] Care Team Providers Care Form Drafter Name Role Phone Cory Ayers DO Primary Care Provider Encounter Details Date Type Department Care Team (Latest Contact Info) Description 09/23/2002 Outpatient Historical HIS CARDIOPULMONARY nAtolin Modi MD [address] [facility] [address] [address] SWELLING OF LIMB (Primary Dx) Social History Tobacco Use Types Packs/Day Years Used Date Smoking Tobacco: Never Assessed Comments Unknown Sex and Gender Information Value Date Recorded Sex Assigned at Not on file Legal Sex Female 4:21 AM INFORMATION TECHNOLOGY SPECIALIST Gender Identity Not on file Sexual Orientation Not on file documented as of this encounter Plan of Treatment Not on file documented as of this encounter Visit Diagnoses Diagnosis Swelling of limb- Primary documented in this encounter Care Teams Form Drafter Relationship Specialty Start Date End Date Cory Ayers DO PCP - General 07/27/15 documented as of this encounter
--- OUTSIDE RECORDS SUMMARY | 2025-06-08 15:01 | XMS_ITS | Clinical Summary ---
Author Organization [facility] Address [address] [facility] [place] [address] Phone Care Team Providers Care Assistant Store Manager Name Role Phone AgapitoCory molina Alvarez [...] on file Legal Sex Female 4:21 AM TECHNICAL ENGINEER Gender Identity Not on file Sexual [...] series) 2014 INFLUENZA VACCINE (#1) 2025 [place] [address] MEDICARE PART A AND B [employer] PPO Care Teams Assistant Store Manager Relationship Specialty Start Date End Date Cory Ayers DO PCP - General 07/27/15
--- OUTSIDE RECORDS SUMMARY | 2025-06-08 15:01 | XMS_ITS | Encounter Summary ---
Author Organization [facility] Address [address] [place] [address] Care Team Providers Care Fur Storage Clerk Name Role Phone Cory Ayers DO Primary Care Provider Encounter Details Date Type Department Care Team (Late st Contact Info) Description 07/26/2002 Inpatient Historical [facility] Antolin Modi MD [address] [facility] [address] [place] [address] POSTOP VAGINAL PROLAPSE (Primary Dx) Social History Tobacco Use Types Packs/Day Years Used Date Smoking Tobacco: Never Assessed Comments Unknown Sex and Gender Information Value Date Recorded Sex Assigned at Not on file Legal Sex Female 4:21 AM WELDER PLASTIC Gender Identity Not on file Sexual Orientation Not on file documented as of this encounter Plan of Treatment Not on file documented as of this encounter Visit Diagnoses Diagnosis 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
--- OUTSIDE RECORDS SUMMARY | 2025-06-08 15:01 | XMS_ITS | Encounter Summary ---
Author Organization [facility] Address [address] [place] [address] Care Team Providers Care Spiritual Counselor Name Role Phone Cory Ayers DO Primary Care Provider Encounter Details Date Type Department Care Team (Late st Contact Info) Description 09/11/2002 Outpatient Historical [facility] Antolin Modi MD [address] [facility] [address] [address] COMPLIC-URINARY TRACT (Primary Dx) Social History Tobacco Use Types Packs/Day Years Used Date Smoking Tobacco: Never Assessed Comments Unknown Sex and Gender Information Value Date Recorded Sex Assigned at Not on file Legal Sex Female 4:21 AM GAS ADJUSTER Gender Identity Not on file Sexual Orientation Not on file documented as of this encounter Plan of Treatment Not on file documented as of this encounter Visit Diagnoses Diagnosis Urinary complications- Primary documented in this encounter Care Teams Spiritual Counselor Relationship Specialty Start Date End Date Cory Ayers DO PCP - General 07/27/15 documented as of this encounter
--- OUTSIDE RECORDS SUMMARY | 2025-06-08 15:01 | XMS_ITS | Encounter Summary ---
Author Organization [facility] Address [address] [place] [address] Care Team Providers Care Piece Meat Trimmer Name Role Phone Cory Ayers DO Primary Care Provider Encounter Details Date Type Department Care Team (Late st Contact Info) Description 07/12/2002 Outpatient Historical [facility] ([facility] Cardiology[facility]) [address] [place] [address] Darnell Hernandez Social History Tobacco Use Types Packs/Day Years Used Date Smoking Tobacco: Never Assessed Comments Unknown Sex and Gender Information Value Date Recorded Sex Assigned at Not on file Legal Sex Female 4:21 AM WINDROWER OPERATOR Gender Identity Not on file Sexual Orientation Not on file documented as of this encounter Plan of Treatment Not on file documented as of this encounter Visit Diagnoses Not on filedocumented in this encounter Care Teams Piece Meat Trimmer Relationship Specialty Start Date End Date Cory Ayers DO PCP - General 07/27/15 documented as of this encounter
--- OUTSIDE RECORDS SUMMARY | 2025-06-08 15:01 | XMS_ITS | Encounter Summary ---
Author Organization [facility] Address [address] [facility] Attn: Epic Prelude ADT [place] [address] Care Team Providers Care Register Repairer Name Role Phone Cory Ayers DO Primary Care Provider Encounter Details Date Type Department Care Team (Late st Contact Info) Description 11/26/1989 Outpatient Historical Hiram Trivedi MD [facility] [place] [address] Social History Tobacco Use Types Packs/Day Years Used Date Smoking Tobacco: Never Assessed Comments Unknown Sex and Gender Information Value Date Recorded Sex Assigned at Not on file Legal Sex Female 4:21 AM WEAVER TIRE CORD Gender Identity Not on file Sexual Orientation Not on file documented as of this encounter Plan of Treatment Not on file documented as of this encounter Visit Diagnoses Not on filedocumented in this encounter Care Teams Register Repairer Relationship Specialty Start Date End Date Cory Ayers DO PCP - General 07/27/15 documented as of this encounter
--- OUTSIDE RECORDS SUMMARY | 2025-06-08 15:01 | XMS_ITS | Encounter Summary ---
Author Organization [facility] Address [address] [place] [address] Care Team Providers Care Engraver Tender Name Role Phone Cory Ayers DO Primary Care Provider Encounter Details Date Type Department Care Team (Late st Contact Info) Description 09/17/2002 Outpatient Historical [facility], [address] Antolin Modi MD [address] [place] [address] [address] [address] URIN TRACT INFECTION NOS (Primary Dx) Social History Tobacco Use Types Packs/Day Years Used Date Smoking Tobacco: Never Assessed Comments Unknown Sex and Gender Information Value Date Recorded Sex Assigned at Not on file Legal Sex Female 4:21 AM LACING STRING CUTTER Gender Identity Not on file Sexual Orientation Not on file documented as of this encounter Plan of Treatment Not on file documented as of this encounter Visit Diagnoses Diagnosis Urinary tract infection, site not specified- Primary documented in this encounter Care Teams Engraver Tender Relationship Specialty Start Date End Date Cory Ayers DO PCP - General 07/27/15 documented as of this encounter
--- OUTSIDE RECORDS SUMMARY | 2025-06-08 15:01 | XMS_ITS | Clinical Summary ---
Author Organization [facility] [place] [facility] Address [address] [place] [address] Care Team Providers Care System Administrator Name Role Phone Dano Han MD Primary [...] on file Legal Sex Female 3:34 AM SCREW MACHINE TENDER Gender Identity Not on file [...] 05/13/2019, 05/13/2019, Additional history exists Insurance MEDICARE [facility] MEDICARE [facility] MEDICARE ADVANTAGE Care Teams System Administrator Relationship Specialty Start Date End Date Dano Han MD PCP - General Family Practice 08/31/21
--- OUTSIDE RECORDS SUMMARY | 2025-06-08 15:01 | XMS_ITS | Encounter Summary ---
Author Organization [facility] Address [address] [place] [address] Care Team Providers Care Absorption Plant Operator Helper Name Role Phone Cory Ayers DO Primary Care Provider Encounter Details Date Type Department Care Team (Late st Contact Info) Description 10/29/1999 Outpatient Historical [facility]NON-PATIENT Hiram Trivedi MD [address] [place] [address] Social History Tobacco Use Types Packs/Day Years Used Date Smoking Tobacco: Never Assessed Comments Unknown Sex and Gender Information Value Date Recorded Sex Assigned at Not on file Legal Sex Female 4:21 AM TIRE TRIMMER HAND Gender Identity Not on file Sexual Orientation Not on file documented as of this encounter Plan of Treatment Not on file documented as of this encounter Visit Diagnoses Not on filedocumented in this encounter Care Teams Absorption Plant Operator Helper Relationship Specialty Start Date End Date Cory Ayers DO PCP - General 07/27/15 documented as of this encounter
[2025-06-11 08:09] LABS: Calprotectin, Fecal 141 ug/g (0-120)
== END 2025-06-08 13:31 | disposition home or self-care (01) ==
LOC: ANHLAB 13:32
PROVIDERS: PCP Nurse Practitioner Family; Visit Provider Nurse Practitioner
DX: R19.5 Other fecal abnormalities (principal); R19.7 Diarrhea, unspecified
CPT/HCPCS: 83993; 87507

== ENCOUNTER 2025-06-15 09:16 | Outpatient (CLI) | payer MEDICARE, SELFPAY ==
--- NOTE | ~2025-06-15 | CT_ITS ---
EXAMINATION: CT abdomen pelvis w con DATE: 06/15/2025 09:37 INDICATION: Mural thickening of rectum. TECHNIQUE: Computed tomography (CT) of the abdomen and pelvis was performed with 100 mL Omnipaque 350 intravenous contrast. Automated exposure control and iterative reconstruction technique were employed. The dose-length product was 497.35 mGy-cm. COMPARISON: CT abdomen and pelvis 02/15/2025 FINDINGS: The visualized portions of the lung bases demonstrate mild atelectasis. No pleural effusion. The heart size is normal. No pericardial effusion. There are coronary artery calcifications. There are bilateral breast implants. The liver demonstrates surface nodularity, consistent with cirrhosis. The gallbladder is normal. The common duct measures a diameter of 9 mm, which is normal for age. There is a 6 mm cyst in the spleen. The pancreas, adrenal glands, and right kidney are normal. There is a 4 mm cyst in left kidney. There is a 3 mm stone in left kidney. Stool distends the rectum. There is diverticulosis of the colon without evidence of diverticulitis. The appendix is not visualized. There is a ventral hernia containing fat. There are no pathologically enlarged lymph nodes. There is no free intraperitoneal fluid. There is severe thoracic and lumbar spondylosis. IMPRESSION: 1. Stool distends the rectum. 2. Cirrhosis of the liver. 3. Ventral hernia containing fat. Reviewed, dictated and finalized at location E. CAD TECHNICIAN
[2025-06-15 09:33] LABS: Estimated Glomerular Filt Rate > 60
--- OUTSIDE RECORDS SUMMARY | 2025-06-15 09:56 | XMS_ITS | Encounter Summary ---
Author Organization [facility] Address [address] [place] [address] Care Team Providers Care Chief Design Engineer Name Role Phone Cory Ayers DO Primary Care Provider Encounter Details Date Type Department Care Team (Late st Contact Info) Description 09/17/2002 Outpatient Historical [facility], [address] Antolin Modi MD [address] [place] [address] [address] [address] URIN TRACT INFECTION NOS (Primary Dx) Social History Tobacco Use Types Packs/Day Years Used Date Smoking Tobacco: Never Assessed Comments Unknown Sex and Gender Information Value Date Recorded Sex Assigned at Not on file Legal Sex Female 4:21 AM ENZYME CHEMIST Gender Identity Not on file Sexual Orientation Not on file documented as of this encounter Plan of Treatment Not on file documented as of this encounter Visit Diagnoses Diagnosis Urinary tract infection, site not specified- Primary documented in this encounter Care Teams Chief Design Engineer Relationship Specialty Start Date End Date Cory Ayers DO PCP - General 07/27/15 documented as of this encounter
--- OUTSIDE RECORDS SUMMARY | 2025-06-15 09:56 | XMS_ITS | Clinical Summary ---
Author Organization [facility] [place] Address [address] [place] [address] Care Team Providers Care Brickmason Contractor Name Role Phone Dano Han MD Primary [...] on file Legal Sex Female 3:34 AM SOLE LAYER HAND Gender Identity Not on file Sexual [...] 0, 05/13/2019, 05/13/2019, [place] [address] [place] [address] MEDICARE [facility] MEDICARE [facility] MEDICARE ADVANTAGE Care Teams Brickmason Contractor Relationship Specialty Start Date End Date Dano Han MD PCP - General Family Practice 08/31/21
--- OUTSIDE RECORDS SUMMARY | 2025-06-15 09:56 | XMS_ITS | Encounter Summary ---
Author Organization [facility] Address [address] [place] [address] Care Team Providers Care Marine Engineering Teacher Name Role Phone Cory Ayers DO Primary Care Provider Darnell Raymond MD Unavailable Esthela Barksdale MD Primary Care Provider Un available Cory Ayers DO Primary Care Provider Cory Ayers DO Primary Care Provider Dano Han MD Primary Care Provider Stefani Mulligan MD Unavailable [phone] Cory Ayers DO Primary Care Provider [phone] Dano Han MD Primary Care Provider Amalia Gregory MD Unavailable [phone] Encounter Details Date Type Department Care Team (Late st Contact Info) Description 11/26/2017 [facility] Outpatient Visit [facility] [address] [place] [address] [place] [address] [address] Social History Tobacco Use Types Packs/Day Years Used Date Smoking Tobacco: Never Smokeless Tobacco: Never Alcohol Use Standard Drinks/Week Comments No 0 (1 standard drink = 0.6 oz pur e alcohol) Comments Unknown Sex and Gender Information Value Date Recorded Sex Assigned at Not on file Legal Sex Female 6:[address] Gender Identity Female 01/16/2021 10:27 AM [...] documented as of this encounter Care Teams Marine Engineering Teacher Relationship Specialty Start Date End Date Cory Ayers DO PCP - General Internal Medicine 10/30/17 06/10/19 Esthela Barksdale MD [address] [place] [address] PCP - General Family Medicine 07/07/19 01/16/20 Cory Ayers DO [address] [place] [address] PCP - General 01/17/20 03/19/20 Cory Ayers DO [address] [place] [address] PCP - General 03/23/20 03/27/20 Dano Han MD [address] [place] [address] PCP - General Family Medicine 03/28/20 03/30/20 Cory Ayers DO [address] [place] [address] PCP - General 03/31/20 04/02/20 Dano Han MD [address] [place] [address] PCP - General 04/03/20 [place] [address] [place] [address] Orthopedic Surgery 10/30/17 [place] [address] [place] [address] Machine Former Cardiovascular Disease 03/28/20 [place] [address] [place] [address] Rheumatology 10/26/20 documented as of this encounter
--- OUTSIDE RECORDS SUMMARY | 2025-06-15 09:56 | XMS_ITS | Encounter Summary ---
Author Organization [facility] Address [address] [place] [address] Care Team Providers Care Control Officer Manager Name Role Phone Cory Ayersian Primary Care [...] on file Legal Sex Female 4:21 AM MOVING PICTURE OPERATOR Gender Identity Not on file Sexual [...] non- Americans is available on the [facility] [place] Intranet at: [email or web address] Select: Lab Policies and Procedures [facility]: Reference Ranges - GFR 03/27/2007 5:55 AM CDT dermSearchell CHEMISTRY ORDERABLES Edited Performing Organization Address City/[facility] de Phone Number INTERFACE SYSTEM Refer to clinic/hospital department * HEMOGLOBIN AND HEMATOCRIT (03/27/2007 5:55 AM CDT) HEMOGLOBIN 13.7 11.8 - 14.8 g/dL INTERFACE SYSTEM HEMATOCRIT 40.3 35.5 - 44.0 % INTERFACE SYSTEM 03/27/2007 5:55 AM CDT ProsperWorksonnell HEMATOLOGY ORDERABLES Edited Performing Organization Address City/State/[facility] Co de Phone Number INTERFACE SYSTEM Refer to clinic/hospital department documented in this encounter Visit Diagnoses Diagnosis Specified congenital anomalies of breast- Primary documented in this encounter Care Teams Control Officer Manager Relationship Specialty Start Date End Date Cory Ayers DO PCP - General 07/27/15 documented as of this encounter
--- OUTSIDE RECORDS SUMMARY | 2025-06-15 09:56 | XMS_ITS | Encounter Summary ---
Author Organization [facility] Address [address] [facility] Attn: Epic Prelude ADT [place] [address] Care Team Providers Care Refractory Bricklayer Name Role Phone Cory Ayers DO Primary Care Provider Encounter Details Date Type Department Care Team (Late st Contact Info) Description 01/08/1994 Outpatient Historical Hiram Trivedi MD [facility] [place] [address] Social History Tobacco Use Types Packs/Day Years Used Date Smoking Tobacco: Never Assessed Comments Unknown Sex and Gender Information Value Date Recorded Sex Assigned at Not on file Legal Sex Female 4:21 AM CAREER TECHNICAL EDUCATION INSTRUCTOR Gender Identity Not on file Sexual Orientation Not on file documented as of this encounter Plan of Treatment Not on file documented as of this encounter Visit Diagnoses Not on filedocumented in this encounter Care Teams Refractory Bricklayer Relationship Specialty Start Date End Date Cory Ayers DO PCP - General 07/27/15 documented as of this encounter
--- OUTSIDE RECORDS SUMMARY | 2025-06-15 09:56 | XMS_ITS | Encounter Summary ---
Author Organization [facility] Address [address] [place] [address] Care Team Providers Care Automotive Heavy Mechanic Name Role Phone Cory Ayers DO Primary Care Provider Encounter Details Date Type Department Care Team (Late st Contact Info) Description 10/29/1999 Outpatient Historical [facility],NON-PATIENT Hiram Trivedi MD [address] [place] [address] Social History Tobacco Use Types Packs/Day Years Used Date Smoking Tobacco: Never Assessed Comments Unknown Sex and Gender Information Value Date Recorded Sex Assigned at Not on file Legal Sex Female 4:21 AM WELDING MACHINE FEEDER Gender Identity Not on file Sexual Orientation Not on file documented as of this encounter Plan of Treatment Not on file documented as of this encounter Visit Diagnoses Not on filedocumented in this encounter Care Teams Automotive Heavy Mechanic Relationship Specialty Start Date End Date Cory Ayers DO PCP - General 07/27/15 documented as of this encounter
--- OUTSIDE RECORDS SUMMARY | 2025-06-15 09:56 | XMS_ITS | Encounter Summary ---
Author Organization [facility] Address [address] [place] [address] Care Team Providers Care Unemployment Specialist Name Role Phone Cory Ayers DO Primary Care Provider Encounter Details Date Type Department Care Team (Late st Contact Info) Description 02/01/2000 Outpatient Historical [facility] Hiram Trivedi MD [address] [place] [address] Social History Tobacco Use Types Packs/Day Years Used Date Smoking Tobacco: Never Assessed Comments Unknown Sex and Gender Information Value Date Recorded Sex Assigned at Not on file Legal Sex Female 4:21 AM PLAN EXAMINER Gender Identity Not on file Sexual Orientation Not on file documented as of this encounter Plan of Treatment Not on file documented as of this encounter Visit Diagnoses Not on filedocumented in this encounter Care Teams Unemployment Specialist Relationship Specialty Start Date End Date Cory Ayers DO PCP - General 07/27/15 documented as of this encounter
--- OUTSIDE RECORDS SUMMARY | 2025-06-15 09:56 | XMS_ITS | Encounter Summary ---
Author Organization [facility] Address [address] [place] [address] Care Team Providers Care Assistant Track Coach Name Role Phone Cory Ayers DO Primary Care Provider Encounter Details Date Type Department Care Team (Late st Contact Info) Description 06/23/2001 Outpatient Historical [facility] Hiram Trivedi MD [address] [place] [address] Social History Tobacco Use Types Packs/Day Years Used Date Smoking Tobacco: Never Assessed Comments Unknown Sex and Gender Information Value Date Recorded Sex Assigned at Not on file Legal Sex Female 4:21 AM SERVICE CORRESPONDENT Gender Identity Not on file Sexual Orientation Not on file documented as of this encounter Plan of Treatment Not on file documented as of this encounter Visit Diagnoses Not on filedocumented in this encounter Care Teams Assistant Track Coach Relationship Specialty Start Date End Date Cory Ayers DO PCP - General 07/27/15 documented as of this encounter
--- OUTSIDE RECORDS SUMMARY | 2025-06-15 09:56 | XMS_ITS | Clinical Summary ---
Author Organization [facility] Address [address] [facility] [place] [address] Phone Care Team Providers Care Divisional Merchandising Manager Name Role Phone AgapitoCory molina Alvarez [...] on file Legal Sex Female 4:21 AM HEAD BOOKKEEPER Gender Identity Not on file Sexual Orientation [...] series) 2014 INFLUENZA VACCINE (#1) 2025 [place] [address] MEDICARE PART A AND B [employer] PPO Care Teams Divisional Merchandising Manager Relationship Specialty Start Date End Date Cory Ayers DO PCP - General 07/27/15
--- OUTSIDE RECORDS SUMMARY | 2025-06-15 09:56 | XMS_ITS | Encounter Summary ---
Author Organization [facility] Address [address] [place] [address] Care Team Providers Care Bill Cutter Name Role Phone Cory Ayers DO Primary Care Provider Encounter Details Date Type Department Care Team (Late st Contact Info) Description 10/06/2002 Outpatient Historical HIS MRI DEPT [facility], [place] [address] [facility] [address] [place] [address] JOINT PAIN-L/LEG (Primary Dx) Social History Tobacco Use Types Packs/Day Years Used Date Smoking Tobacco: Never Assessed Comments Unknown Sex and Gender Information Value Date Recorded Sex Assigned at Not on file Legal Sex Female 4:21 AM RESEARCH LIBRARIAN Gender Identity Not on file Sexual Orientation Not on file documented as of this encounter Plan of Treatment Not on file documented as of this encounter Visit Diagnoses Diagnosis Pain in joint, lower leg- Primary documented in this encounter Care Teams Bill Cutter Relationship Specialty Start Date End Date Cory Ayers DO PCP - General 07/27/15 documented as of this encounter
--- OUTSIDE RECORDS SUMMARY | 2025-06-15 09:56 | XMS_ITS | Encounter Summary ---
Author Organization [email or web address] Address [address] [place] [address] Care Team Providers Care Installations Inspector Name Role Phone Cory Ayers DO Primary Care Provider Encounter Details Date Type Department Care Team (Latest Contact Info) Description 05/09/1999 Outpatient Historical [facility] [place] [address] [facility] [place] [address] Localized adiposity (Primary Dx) Social History Tobacco Use Types Packs/Day Years Used Date Smoking Tobacco: Never Assessed Comments Unknown Sex and Gender Information Value Date Recorded Sex Assigned at Not on file Legal Sex Female 4:21 AM TECHNICAL SALES REPRESENTATIVES Gender Identity Not on file Sexual Orientation Not on file documented as of this encounter Plan of Treatment Not on file documented as of this encounter Visit Diagnoses Diagnosis Localized adiposity- Primary documented in this encounter Care Teams Installations Inspector Relationship Specialty Start Date End Date Cory Ayers DO PCP - General 07/27/15 documented as of this encounter
--- OUTSIDE RECORDS SUMMARY | 2025-06-15 09:56 | XMS_ITS | Encounter Summary ---
Author Organization [facility] Address [address] [place] [address] Care Team Providers Care Oil Well Services Superintendent Name Role Phone Cory Ayers DO Primary Care Provider Encounter Details Date Type Department Care Team (Latest Contact Info) Description 09/23/2002 Outpatient Historical [facility] CARDIOPULMONARY Antolin Modi MD [address] [facility] [address] [address] SWELLING OF LIMB (Primary Dx) Social History Tobacco Use Types Packs/Day Years Used Date Smoking Tobacco: Never Assessed Comments Unknown Sex and Gender Information Value Date Recorded Sex Assigned at Not on file Legal Sex Female 4:21 AM PLASTIC MAKER Gender Identity Not on file Sexual Orientation Not on file documented as of this encounter Plan of Treatment Not on file documented as of this encounter Visit Diagnoses Diagnosis Swelling of limb- Primary documented in this encounter Care Teams Oil Well Services Superintendent Relationship Specialty Start Date End Date Cory Ayers DO PCP - General 07/27/15 documented as of this encounter
--- OUTSIDE RECORDS SUMMARY | 2025-06-15 09:56 | XMS_ITS | Encounter Summary ---
Author Organization [facility] Address [address] [place] [address] Care Team Providers Care Nutritionalist Name Role Phone Cory Ayers DO Primary Care Provider Encounter Details Date Type Department Care Team (Late st Contact Info) Description 10/29/1999 Outpatient Historical [facility] Hiram Trivedi MD [facility] [place] [address] Social History Tobacco Use Types Packs/Day Years Used Date Smoking Tobacco: Never Assessed Comments Unknown Sex and Gender Information Value Date Recorded Sex Assigned at Not on file Legal Sex Female 4:21 AM PASTEURIZING SUPERVISOR Gender Identity Not on file Sexual Orientation Not on file documented as of this encounter Plan of Treatment Not on file documented as of this encounter Visit Diagnoses Not on filedocumented in this encounter Care Teams Nutritionalist Relationship Specialty Start Date End Date Cory Ayers DO PCP - General 07/27/15 documented as of this encounter
--- OUTSIDE RECORDS SUMMARY | 2025-06-15 09:56 | XMS_ITS | Encounter Summary ---
Author Organization [facility] Address [address] [place] [address] Care Team Providers Care Media Clerk Name Role Phone Cory Ayers DO Primary Care Provider Encounter Details Date Type Department Care Team (Late st Contact Info) Description 07/26/2002 Inpatient Historical [facility] Antolin Modi MD [address] [facility] [address] [place] [address] POSTOP VAGINAL PROLAPSE (Primary Dx) Social History Tobacco Use Types Packs/Day Years Used Date Smoking Tobacco: Never Assessed Comments Unknown Sex and Gender Information Value Date Recorded Sex Assigned at Not on file Legal Sex Female 4:21 AM RECYCLING SPECIALIST Gender Identity Not on file Sexual Orientation Not on file documented as of this encounter Plan of Treatment Not on file documented as of this encounter Visit Diagnoses Diagnosis 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
--- OUTSIDE RECORDS SUMMARY | 2025-06-15 09:56 | XMS_ITS | Encounter Summary ---
Author Organization [facility] Address [address] [place] [address] Care Team Providers Care Mothercraft Nurse Name Role Phone Cory Ayers DO Primary Care Provider Encounter Details Date Type Department Care Team (Late st Contact Info) Description 07/12/2002 Outpatient Historical [facility] ([facility]t [facility]iology[facility]) [address] [place] [phone] Darnell Hernandez Social History Tobacco Use Types Packs/Day Years Used Date Smoking Tobacco: Never Assessed Comments Unknown Sex and Gender Information Value Date Recorded Sex Assigned at Not on file Legal Sex Female 4:21 AM CHIEF ULTRASOUND TECHNOLOGIST Gender Identity Not on file Sexual Orientation Not on file documented as of this encounter Plan of Treatment Not on file documented as of this encounter Visit Diagnoses Not on filedocumented in this encounter Care Teams Mothercraft Nurse Relationship Specialty Start Date End Date Cory Ayers DO PCP - General 07/27/15 documented as of this encounter
--- OUTSIDE RECORDS SUMMARY | 2025-06-15 09:56 | XMS_ITS | Encounter Summary ---
Author Organization [facility] Address [address] [place] [address] Care Team Providers Care Nude Model Name Role Phone Cory Ayers DO Primary Care Provider Encounter Details Date Type Department Care Team (Late st Contact Info) Description 09/11/2002 Outpatient Historical [facility] Antolin Modi MD [address] [facility] [address] [address] COMPLIC-URINARY TRACT (Primary Dx) Social History Tobacco Use Types Packs/Day Years Used Date Smoking Tobacco: Never Assessed Comments Unknown Sex and Gender Information Value Date Recorded Sex Assigned at Not on file Legal Sex Female 4:21 AM BODY SHOP FLOORPERSON Gender Identity Not on file Sexual Orientation Not on file documented as of this encounter Plan of Treatment Not on file documented as of this encounter Visit Diagnoses Diagnosis Urinary complications- Primary documented in this encounter Care Teams Nude Model Relationship Specialty Start Date End Date Cory Ayers DO PCP - General 07/27/15 documented as of this encounter
--- OUTSIDE RECORDS SUMMARY | 2025-06-15 09:57 | XMS_ITS | Encounter Summary ---
Author Organization [facility] Address [address] [facility] [place] [address] Care Team Providers Care Financial Health Counselor Name Role Phone Darnell Raymond MD Unavailable Stefani Mulligan MD Unavailable Dano Han MD Primary Care Provider Amalia Gregory MD Unavailable [phone] Encounter Details Date Type Department Care Team (Late st Contact Info) Description 01/02/2023 Lab Requisition [facility] - Derm[facility] Lab [address] [facility] [place] [phone] Parth Crain MD [address] [place] [address] Social History Tobacco Use Types Packs/Day Years Used Date Smoking Tobacco: Never Smokeless Tobacco: Never Alcohol Use Standard Drinks/Week Comments No 0 (1 standard drink = 0.6 oz pur e alcohol) Comments Unknown Sex and Gender Information Value Date Recorded Sex Assigned at Not on file Legal Sex Female 6:13 PM TICKET SPECULATOR Gender Identity Female 01/16/2021 10:27 AM CDT [...] AM CDT) Case Report Dermatopathology Report Case: [id number] Authorizing Provider: Parth Crain MD Collected: 01/01/2023 12:00 AM Ordering Location: [facility] D[facility] Lab Received: 01/02/2023 08:56 AM [...] specimen consists of two shaved biopsies measuring [id number] and 6x6x1 mm. Jar 0. 3 5:48 [...] characteristic determined by the Dermatopathology Laboratory at [facility], directed by Dr. Maryam Mendoza. These tests need not be, and therefore are not, approved by the [place] Food and Drug Administration. The tests are used for clinical purposes. Billing Codes Specimen Charges Stain Charges 50949 1 3 5:48 PM CDT DERMATOPATHOLOGY LABORATORY Embedded Images 3 5:48 PM CDT DERMATOPATHOLOGY LABORATORY Pathology/Cytolog y TISSUE SPECIMEN FROM SKIN / Unknown 01/01/2023 01/02/2023 8:56 AM CDT Parth Crain MD LAB - PATHOLOGY/CYTOLOGY ORDERAB LES Final Result DERMATOPATHOLOGY LABORATORY [facility] Department of Dermatology 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
--- OUTSIDE RECORDS SUMMARY | 2025-06-15 09:57 | XMS_ITS | Encounter Summary ---
Author Organization [facility] Address [address] [facility] [place] [address] Care Team Providers Care Media Production Support Manager Name Role Phone Darnell Raymond MD Unavailable [phone] Stefani Mulligan MD Unavailable [phone] Dano Han MD Primary Care Provider Amalia Gregory MD Unavailable [phone] Encounter Details Date Type Department Care Team (Late st Contact Info) Description 12/06/2022 Lab Requisition [facility] Care DermPath Lab [address] [facility] [place] [address] Parth Crain MD [facility] [place] [address] Social History Tobacco Use Types Packs/Day Years Used Date Smoking Tobacco: Never Smokeless Tobacco: Never Alcohol Use Standard Drinks/Week Comments No 0 (1 standard drink = 0.6 oz pur e alcohol) Comments Unknown Sex and Gender Information Value Date Recorded Sex Assigned at Not on file Legal Sex Female 6:13 PM REFERENCE ASSISTANT Gender Identity Female 01/16/2021 10:27 AM CDT [...] AM CDT) Case Report Dermatopathology Report Case: [id number] Authorizing Provider: Parth Crain MD Collected: 12/05/2022 03:33 AM Ordering Location: [facility] DermPath Lab Received: 12/06/2022 [...] specimen consists of a shave biopsy measuring [id number], 1z1z0rq and 9m4j1gb. Jar 0. 3 12:30 PM CDT DERMATOPATHOLOGY [...] characteristic determined by the Dermatopathology Laboratory at [facility], directed by Dr. Maryam Mendoza. These tests need not be, and therefore are not, approved by the [place] Food and Drug Administration. The tests are used for clinical purposes. Billing Codes Specimen Charges Stain Charges 44023 1 3 12:30 PM CDT DERMATOPATHOLOGY LABORATORY Embedded Images 3 12:30 PM CDT DERMATOPATHOLOGY LABORATORY Pathology/Cytolo gy TISSUE SPECIMEN FROM SKIN / Unknown 12/05/2022 3:33 AM CDT 12/06/2022 6:35 AM CDT Parth Crain MD LAB - PATHOLOGY/CYTOLOGY ORDERAB LES Final Result DERMATOPATHOLOGY LABORATORY [facility] Department of Dermatology [address], [address] [phone] documented in this encounter Visit Diagnoses Not on filedocumented in this encounter Additional Health Concerns Infection Onset Date Last Indicated Resolved Time 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
--- OUTSIDE RECORDS SUMMARY | 2025-06-15 09:57 | XMS_ITS | Encounter Summary ---
Author Organization [facility] Address [address] [facility] Attn: Epic Prelude ADT [place] [address] Care Team Providers Care Waterproofer Helper Name Role Phone Cory Ayers DO Primary Care Provider Encounter Details Date Type Department Care Team (Late st Contact Info) Description 11/26/1989 Outpatient Historical Hiram Trivedi MD [facility] [place] [address] Social History Tobacco Use Types Packs/Day Years Used Date Smoking Tobacco: Never Assessed Comments Unknown Sex and Gender Information Value Date Recorded Sex Assigned at Not on file Legal Sex Female 4:21 AM REPLENISHMENT ASSOCIATE Gender Identity Not on file Sexual Orientation Not on file documented as of this encounter Plan of Treatment Not on file documented as of this encounter Visit Diagnoses Not on filedocumented in this encounter Care Teams Waterproofer Helper Relationship Specialty Start Date End Date Cory Ayers DO PCP - General 07/27/15 documented as of this encounter
--- OUTSIDE RECORDS SUMMARY | 2025-06-15 09:57 | XMS_ITS | Clinical Summary ---
Author Organization [facility] Address [address] [place] [address] Care Team Providers Care Operations Inspector Name Role Phone Darnell Raymond MD Unavailable [phone] Stefani Mulligan MD Unavailable [phone] Dano Han MD Primary Care Provider Amalia Gregory MD Unavailable [phone] Source Comments [facility],non-owned Affiliates and Associated Physician Practices is amultiple site organization consisting of ambulatory clinics and hospital sitesin [place], [place], [place] and [place]. This disclosure is being madepursuant to the Care Everywhere program and may not contain all information available regarding this patient. Last updated 18.[facility] [employer] Allergies No known active allergies Medications * [...] on file Legal Sex Female 6:13 PM STEAM FITTER HELPER Gender Identity Female 01/16/2021 10:27 AM CDT Sexual Orientation Not on file Last Filed Vital Signs Vital Sign Reading Time Taken Comments Blood Pressure 159/91 10/08/2023 10:15 AM STEAM FITTER HELPER Pulse 76 10/08/2023 10:15 AM STEAM FITTER HELPER Temperature 36.2 C (97.1 F) 07/12/2021 8:47 AM STEAM FITTER HELPER Respiratory Rate 18 03/26/2021 10:24 AM CDT Oxygen Saturation 98% 10/26/2020 11:25 AM CDT Inhaled Oxygen Concentration - - Weight 70.3 kg (155 lb) 10/08/2023 10:15 AM STEAM FITTER HELPER Height 157.5 cm (5' 2) 10/08/2023 10:15 AM STEAM FITTER HELPER Body Mass Index 28.35 10/08/2023 10:15 AM STEAM FITTER HELPER Plan of Treatment Health Maintenance Due Date [...] this topic Medical Devices Implanted Type Area Acetylene Cylinder Packing Mixer Device Identifier Shelf Expiration Date Model / Serial / Lot Cmnt Bone Cblt 40gm Hvisc Strl Implanted:Qty: 1 on 12/15/2017 by Darnell Raymond MD at [facility] Right: Knee [employer] 06/10/2019 600-15-000 / / [id number] Cmpnt Fem Kn Rt Cr Cmnt Prm Vngrd Intlk Implanted:Qty: 1 on 12/15/2017 by Darnell Raymond MD at [facility] Right: Knee [employer] 09/14/2027 [id number] / / [id number] Tray Tib 71mm Kn Cocr I Beam Implanted:Qty: 1 on 12/15/2017 by Darnell Raymond MD at [facility] Right: Knee [employer] 08/07/2027 [id number] / / [id number] Cmpnt Ptlr 28mm 1 Pg Wire Ascnt Arcm Kn Implanted:Qty: 1 on 12/15/2017 by Darnell Raymond MD at [facility] Right: Knee [employer] 09/01/2022 [id number] / / [id number] Brng [id number] Vngrd Arcm Kn Ant Stab Implanted:Qty: 1 on 12/15/2017 by Darnell Raymond MD at [facility] Right: Knee [employer] 09/04/2022 [id number] / / [id number] Additional Health Concerns Infection Onset Date Last [...] 2:10 PM 12/18/2017 2:18 PM Care Teams Operations Inspector Relationship Specialty Start Date End Date Dano Han MD [address] [place] [address] PCP - General 04/03/20 [place] [address] [place] [address] Orthopedic Surgery 10/30/17 [place] [address] [address] [place] [address] Photographic Engineer Cardiovascular Disease 03/28/20 [place] [address] [place] [address] Rheumatology 10/26/20
--- OUTSIDE RECORDS SUMMARY | 2025-06-15 09:57 | XMS_ITS | Encounter Summary ---
Author Organization [facility] Address [address] [place] [address] Care Team Providers Care Weigher Bulker Name Role Phone Cory Ayers DO Primary [...] on file Legal Sex Female 4:21 AM FOOT MITER OPERATOR Gender Identity Not on file Sexual Orientation Not on file documented as of this encounter Plan of Treatment Not on file documented as of this encounter Visit Diagnoses Diagnosis Disorders of bursae and tendons in shoulder region, unspecified- Primary documented in this encounter Care Teams Weigher Bulker Relationship Specialty Start Date End Date Cory Ayers DO PCP - General 07/27/15 documented as of this encounter
--- OUTSIDE RECORDS SUMMARY | 2025-06-15 09:57 | XMS_ITS | Encounter Summary ---
Author Organization [facility] Address [address] [facility] Attn: [place] [address] Care Team Providers Care Social Welfare Administrator Name Role Phone Cory Ayers DO Primary Care Provider Encounter Details Date Type Department Care Team (Late st Contact Info) Description 10/06/1997 Outpatient Historical Conversion, History Hiram Trivedi MD [address] [place] [address] Social History Tobacco Use Types Packs/Day Years Used Date Smoking Tobacco: Never Assessed Comments Unknown Sex and Gender Information Value Date Recorded Sex Assigned at Not on file Legal Sex Female 4:21 AM EAR NOSE THROAT PHYSICIAN Gender Identity Not on file Sexual Orientation Not on file documented as of this encounter Plan of Treatment Not on file documented as of this encounter Visit Diagnoses Not on filedocumented in this encounter Care Teams Social Welfare Administrator Relationship Specialty Start Date End Date Cory Ayers DO PCP - General 07/27/15 documented as of this encounter
[2025-06-15 10:35] LABS: Hematocrit 40.9 % (37.0-47.0); Hemoglobin 12.8 g/dL (12.0-15.0); Mean Corpuscular HGB Conc 31.3 g/dl (32-36); Mean Corpuscular Hemoglobin 29.6 pg (26-34); Mean Corpuscular Volume 94.5 fl (80-100); Platelet Count Result 155 k/mm3 (150-375); Red Blood Count 4.33 M/mm3 (4.2-5.4); White Blood Count 5.0 K/mm3 (4.5-10.0)
[2025-06-15 10:50] LABS: INR 1.0; Prothrombin Time 13.5 Seconds (11.1-14.7)
[2025-06-15 11:03] LABS: Alanine Aminotransferase 55 U/L (6-35); Albumin Level 2.9 g/dL (3.5-5.1); Alkaline Phosphatase 168 U/L (38-126); Anion Gap 4 mmol/L (4-12); Aspartate Amino Transferase 66 U/L (14-36); Bilirubin,Total 0.7 mg/dL (0.2-1.3); Blood Urea Nitrogen 20 mg/dL (7-17); Calcium 8.7 mg/dL (8.4-10.2); Carbon Dioxide 27 mmol/L (22-30); Chloride 104 mmol/L (98-107); Estimated Glomerular Filt Rate > 60; Glucose 64 mg/dL (65-110); Potassium 4.2 mmol/L (3.4-5.0); Sodium 135 mmol/L (137-145); Total Protein 5.3 g/dL (6.3-8.2)
== END 2025-06-15 09:17 | disposition home or self-care (01) ==
PROVIDERS: PCP Nurse Practitioner Family; Visit Provider Nurse Practitioner
DX: K74.60 Unspecified cirrhosis of liver (principal); R79.89 Other specified abnormal findings of blood chemistry; R93.3 Abnormal findings on diagnostic imaging of other parts of digestive tract
CPT/HCPCS: 36415; 74177; 80053; 82105; 85027; 85610; Q9967

== ENCOUNTER 2025-06-15 16:21 | Emergency (ER) | payer MEDICARE, SELFPAY ==
[2025-06-15 16:50] VITALS: BP 149/79; PULSE 91; RESP 20; TEMP 36.3; O2SAT 93
--- NOTE | 2025-06-15 18:28 | ED.GENADULT ---
HPI - General Adult General Chief complaint: Abdominal Pain <ABRAM Hargrove - Last Filed: 06/15/25 18:36> Stated complaint: constipation <ABRAM Hargrove - Last Filed: 06/15/25 18:36> Time Seen by Provider: 06/15/25 18:28 <ABRAM Hargrove - Last Filed: 06/15/25 18:36> Focused HPI: 84 year old female presenting with diffuse lower abdominal pain. Seen by gastroenterology earlier and had an abdominal CT showing significant impaction and was sent here for disimpaction and enema. Unknown last BM. Feeling nauseas. Incontinent at baseline. GENERAL: Well-appearing, well-nourished, and in no acute distress. HEAD: Normocephalic, atraumatic. CHEST: Clear to auscultation. ?No respiratory distress. HEART: Regular rate and rhythm.? NEURO: ?Alert and oriented x3. Patient screened in triage and initial orders placed.? ?Additional care and disposition to be based upon?diagnostic testing and treatment. <ABRAM Hargrove - Last Filed: 06/15/25 18:36> History of Present Illness HPI narrative: I agree with the above HPI. <Camille Eddy APRN - Last Filed: 06/15/25 20:57> Related Data Home medications: Home Medications ?Medication ?Instructions ?Recorded ?Confirmed ?Last Taken ?Type diphenhydramine 25 1 tablet PO HS 10/24/21 06/02/25 10/26/23 History mg-acetaminophen 500 mg tablet (Tylenol PM Extra Strength) prednisone 2.5 mg tablet 5 mg PO BID 03/05/23 06/02/25 02/14/25 History acetaminophen 500 mg tablet 500 mg PO TID PRN Pain 10/01/23 06/02/25 10/26/23 History (Tylenol Extra Strength) ckgyocgaxkwy-rsqpfcbe-krnxil tablet 1 tablet PO DAILY 10/20/23 06/02/25 02/14/25 History omeprazole 40 mg capsule,delayed 40 mg PO DAILY 10/14/24 06/02/25 02/14/25 History release hydroxychloroquine 200 mg tablet 400 mg PO DAILY 11/16/24 06/02/25 02/14/25 History Held on 06/14/25. Instructions: .Provider Order <ABRAM Hargrove - Last Filed: 06/15/25 18:36> Allergies/adverse reactions: Allergies Allergy/AdvReac Type Severity Reaction Status Date / Time No Known Allergies Allergy Verified 06/15/25 16:51 <ABRAM Hargrove - Last Filed: 06/15/25 18:36> Review of Systems Review of Systems: All systems reviewed & are unremarkable except as noted in HPI and below <Camille Eddy APRN - Last Filed: 06/15/25 20:57> [facility] Past Medical History Medical History: Medical History Depression Fecal incontinence GERD (gastroesophageal reflux disease) History of esophageal stricture Esophageal dysphagia History of TIA (transient ischemic attack) Dyslipidemia Oropharyngeal dysphagia History of CVA (cerebrovascular accident) Osteopenia Paralysis of right vocal cord Chronic low back pain Vitamin D deficiency 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 Chronic venous insufficiency of lower extremity Hemorrhoid Anticoagulant long-term use Hypokalemia Atrial fibrillation Obstructive sleep apnea (~10/2020) Polysomnogram suggesting CPAP pressure of 13 with 3 L bleed in O2 Pulmonary embolism History of cerebral hemorrhage History of stroke History of skin cancer Hyperlipidemia Esophageal stricture (~10/2021) History of shingles History of blood clots 2015 - RUE COPD (chronic obstructive pulmonary disease) With CT demonstrating emphysema with mild bronchiectasis GERD without esophagitis Essential (primary) hypertension Rheumatoid arthritis Follows with Rheumatology <ABRAM Hargrove - Last Filed: 06/15/25 18:36> Surgical History Surgical History: Surgical History History of hemorrhoidectomy History of esophageal dilatation 10/2023, 10/2021, 04/2021 History of hemorrhoidectomy 05/08/2021 History of esophagogastroduodenoscopy (EGD) (~05/2020) History of umbilical hernia repair (10/2020) H/O angioplasty (~2018) H/O brain surgery (~2014) 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 History of knee replacement Right H/O shoulder surgery (~1964) H/O Spinal surgery (~1968) spinal tumor removed H/O: hysterectomy (~1974) History of appendectomy (~1949) H/O abdominoplasty (~2017) <ABRAM Hargrove - Last Filed: 06/15/25 18:36> Family History Family History: Family History Father Hyperlipidemia Family history of Alzheimer's disease Hypertension Mother Hypertension Other Diabetes mellitus Heart disease Nervous disorder Hypertension Cerebrovascular accident Other Family history of arthritis Family history of thyroid disease <ABRAM Hargrove - Last Filed: 06/15/25 18:36> Social History Social History: Social History Social History: She has been 3 times. Her 1st after 40 years of marriage. Her 2nd after 5 years . She has been to her current has been for 12 years. She has 3 children who are healthy. She is a lifelong nonsmoker and does not drink alcohol. Second hand tobacco smoke exposure: No Alcohol intake: never Substance use: never Substance use type: does not use Do You Feel Safe in your Home?: Yes Lack of Transportation: No Lack of Food: Never True Current Housing: I Have Housing Concerned About Future Housing: No Difficulty Paying Gas/Electric Bills: No Difficulty Paying for Meds: No Currently Unemployed: No Education: Don't Know Difficulty w/ Childcare or Family Care: No Living arrangements: with family Occupation/Education: retired Gender identity (if verbalized by the patient): Female Sexual Orientation (if Verbalized by the Patient): Straight or Heterosexual Spiritual care concerns: No Agree to blood products: Yes <ABRAM Hargrove - Last Filed: 06/15/25 18:36> Exam Narrative: GENERAL: Well appearing, well-nourished, non-toxic, in no acute distress. HEAD: Normocephalic, atraumatic. NECK: Supple. No adenopathy, no masses. RESPIRATORY: Airway patent, respirations nonlabored. Clear to auscultation bilaterally, no rales, rhonchi, wheezing. CARDIOVASCULAR: Regular rate and rhythm without murmurs, rubs, or gallops. Peripheral pulses 2+ and equal bilaterally. ABDOMINAL: Soft, nontender, nondistended, no hepatosplenomegaly. Normoactive BS. MUSCULOSKELETAL: Moves all extremities. Strength/ROM intact without gross deformities. SKIN: Warm, dry, normal color. No rashes. NEURO: A&O X3. Speech clear. Cranial nerves II-XII intact. No ataxic movements. PSYCHIATRIC: Appropriate mood and affect. Normal interaction. <Camille Eddy, IVAN - Last Filed: 06/15/25 20:57> Course Vital Signs Vital signs: Vital Signs Temperature 36.3 C L 06/15/25 16:50 Pulse Rate 91 06/15/25 16:50 Respiratory Rate 20 06/15/25 16:50 Blood Pressure 149/79 H 06/15/25 16:50 Pulse Oximetry 93 06/15/25 16:50 Oxygen Delivery Room Air 06/15/25 16:50 Temperature 36.5 C 06/15/25 19:20 Pulse Rate 80 06/15/25 19:20 Respiratory Rate 18 06/15/25 19:20 Blood Pressure 140/87 06/15/25 19:20 Pulse Oximetry 97 06/15/25 19:20 Oxygen Delivery Room Air 06/15/25 19:20 <ABRAM Hargrove - Last Filed: 06/15/25 18:36> Vital Signs Temperature 36.3 C L 06/15/25 16:50 Pulse Rate 91 06/15/25 16:50 Respiratory Rate 20 06/15/25 16:50 Blood Pressure 149/79 H 06/15/25 16:50 Pulse Oximetry 93 06/15/25 16:50 Oxygen Delivery Room Air 06/15/25 16:50 Temperature 36.5 C 06/15/25 19:20 Pulse Rate 80 06/15/25 19:20 Respiratory Rate 18 06/15/25 19:20 Blood Pressure 140/87 06/15/25 19:20 Pulse Oximetry 97 06/15/25 19:20 Oxygen Delivery Room Air 06/15/25 19:20 <Camille Eddy APRN - Last Filed: 06/15/25 20:57> Medical Decision Making MDM Narrative Medical decision making narrative: 84 year old female presenting with diffuse lower abdominal pain. Seen by gastroenterology earlier and had an abdominal CT showing significant impaction and was sent here for disimpaction and enema. Unknown last BM. Feeling nauseas. Incontinent at baseline. * patient's reports patient already had blood work and imaging earlier today. They do not want any further imaging or blood work performed in the ER. Their purpose for coming to the emergency department was for patient to get disimpacted. Labs Ordered: None necessary Imaging Ordered: None necessary Medications Ordered: Soapsuds enema Diagnosis: Rectal impaction Consults: Gastroenterology (outpatient) Patient Education/Shared MDM: Following soapsuds enema patient produced a large amount of stool. The stool was hard to medium consistency and brown. Patient endorses significant improvement of symptoms following medication administration. She is strongly advised to maintain hydration status upon discharge and follow-up with her art glass setter as soon as possible. She will be discharged home with a prescription for MiraLax. Strict return precautions provided. Patient verbalized understanding and is in agreement with plan. Vital signs stable at time of discharge. All questions answered. <Camille Eddy APRN - Last Filed: 06/15/25 20:57> Differential Diagnosis Differential Diagnosis: Constipation, bowel obstruction, rectal impaction <Camille Eddy APRN - Last Filed: 06/15/25 20:57> Vital Signs Vital Signs: Vital Signs Temperature 36.3 C L 06/15/25 16:50 Pulse Rate 91 06/15/25 16:50 Respiratory Rate 20 06/15/25 16:50 Blood Pressure 149/79 H 06/15/25 16:50 Pulse Oximetry 93 06/15/25 16:50 Oxygen Delivery Room Air 06/15/25 16:50 Temperature 36.5 C 06/15/25 19:20 Pulse Rate 80 06/15/25 19:20 Respiratory Rate 18 06/15/25 19:20 Blood Pressure 140/87 06/15/25 19:20 Pulse Oximetry 97 06/15/25 19:20 Oxygen Delivery Room Air 06/15/25 19:20 <ABRAM Hargrove - Last Filed: 06/15/25 18:36> Vital Signs Temperature 36.3 C L 06/15/25 16:50 Pulse Rate 91 06/15/25 16:50 Respiratory Rate 20 06/15/25 16:50 Blood Pressure 149/79 H 06/15/25 16:50 Pulse Oximetry 93 06/15/25 16:50 Oxygen Delivery Room Air 06/15/25 16:50 Temperature 36.5 C 06/15/25 19:20 Pulse Rate 80 06/15/25 19:20 Respiratory Rate 18 06/15/25 19:20 Blood Pressure 140/87 06/15/25 19:20 Pulse Oximetry 97 06/15/25 19:20 Oxygen Delivery Room Air 06/15/25 19:20 <Camille Eddy APRN - Last Filed: 06/15/25 20:57> Discharge Plan Discharge Clinical Impression: Fecal impaction in rectum, Constipation by delayed colonic transit <ABRAM Hargrove - Last Filed: 06/15/25 18:36> Patient Disposition: Home <ABRAM Hargrove - Last Filed: 06/15/25 18:36> Condition: Stable <ABRAM Hargrove - Last Filed: 06/15/25 18:36> Instructions: Antibiotic Form, Constipation (ED) <ABRAM Hargrove - Last Filed: 06/15/25 18:36> Additional Instructions: Please return to the ER with any worsening symptoms. Follow-up with your art glass setter for further evaluation and treat. Take all medications as prescribed, including regularly scheduled medications. You may use MiraLax twice a day as needed to prevent further constipation. <ABRAM Hargrove - Last Filed: 06/15/25 18:36> Patient Language: Yi <ABRAM Hargrove - Last Filed: 06/15/25 18:36> Prescriptions: New polyethylene glycol 3350 [Miralax] 17 gram/dose powder 17 g PO BID Qty: 510 0RF No Action acetaminophen [Tylenol Extra Strength] 500 mg tablet 500 mg PO TID PRN (Reason: Pain) Patient Comments: TAKES WITH TRAMADOL TID FOR PAIN prednisone 2.5 mg tablet 5 mg PO BID omeprazole 40 mg capsule,delayed release(DR/EC) 40 mg PO DAILY hydroxychloroquine 200 mg tablet 400 mg PO DAILY hydrocortisone [Preparation H Hydrocortisone] 1 % cream 1 applic topical QID PRN (Reason: hemorrhoids) Qty: 28.4 1RF diphenhydramine-acetaminophen [Tylenol PM Extra Strength] 25-500 mg Tablet 1 tablet PO HS tramadol 50 mg tablet 50 mg PO TID PRN (Reason: Pain) Qty: 10 0RF ewowhwjptbpa-oxhibwma-prasfg Tablet 1 tablet PO DAILY atorvastatin 40 mg tablet 40 mg PO QHS Qty: 100 1RF metoprolol succinate 25 mg tablet extended release 24 hr 25 mg PO DAILY Qty: 100 1RF lisinopril 40 mg tablet 40 mg PO DAILY Qty: 90 1RF duloxetine 60 mg capsule,delayed release(DR/EC) 60 mg PO DAILY Qty: 90 0RF azithromycin 500 mg tablet 500 mg PO DAILY 3 Days Qty: 3 0RF <ABRAM Hargrove - Last Filed: 06/15/25 18:36> Follow-up/Referrals: Nasrin Lynn APRN [Advanced Practice Nurse, Gastroenterology] Mikayla Fernando APRN [Primary Care Provider, Family Practice] <ABRAM Hargrove - Last Filed: 06/15/25 18:36> Time of Disposition: 20:56 <ABRAM Hargrove - Last Filed: 06/15/25 18:36> 20:56 <Camille Eddy APRN - Last Filed: 06/15/25 20:57>
[2025-06-15 19:20] VITALS: BP 140/87; PULSE 80; RESP 18; TEMP 36.5; O2SAT 97
[2025-06-15 21:11] VITALS: BP 142/90; PULSE 85; RESP 20; TEMP 36.7; O2SAT 100
--- OUTSIDE RECORDS SUMMARY | 2025-06-16 15:09 | XMS_ITS | Encounter Summary ---
Author Organization [facility] Address [address] [place] [address] Care Team Providers Care Shot Examiner Name Role Phone Cory Ayers DO Primary [...] on file Legal Sex Female 4:21 AM TREE CHIPPER Gender Identity Not on file Sexual Orientation Not on file documented as of this encounter Plan of Treatment Not on file documented as of this encounter Visit Diagnoses Diagnosis Disorders of bursae and tendons in shoulder region, unspecified- Primary documented in this encounter Care Teams Shot Examiner Relationship Specialty Start Date End Date Cory Ayers DO PCP - General 07/27/15 documented as of this encounter
--- OUTSIDE RECORDS SUMMARY | 2025-06-16 15:09 | XMS_ITS | Encounter Summary ---
Author Organization [facility] Address [address] [place] [address] Care Team Providers Care Staff Nuclear Weapons Officer Name Role Phone Cory Ayers DO Primary Care Provider Encounter Details Date Type Department Care Team (Late st Contact Info) Description 09/17/2002 Outpatient Historical [facility], [address] Antolin Modi MD [address] [place] [address] [address] [address] URIN TRACT INFECTION NOS (Primary Dx) Social History Tobacco Use Types Packs/Day Years Used Date Smoking Tobacco: Never Assessed Comments Unknown Sex and Gender Information Value Date Recorded Sex Assigned at Not on file Legal Sex Female 4:21 AM RIGGING MAN Gender Identity Not on file Sexual Orientation Not on file documented as of this encounter Plan of Treatment Not on file documented as of this encounter Visit Diagnoses Diagnosis Urinary tract infection, site not specified- Primary documented in this encounter Care Teams Staff Nuclear Weapons Officer Relationship Specialty Start Date End Date Cory Ayers DO PCP - General 07/27/15 documented as of this encounter
--- OUTSIDE RECORDS SUMMARY | 2025-06-16 15:09 | XMS_ITS | Encounter Summary ---
Author Organization [facility] Address [address] [place] [address] Care Team Providers Care Computer Help Desk Representative Name Role Phone Cory Ayers DO Primary Care Provider Encounter Details Date Type Department Care Team (Late st Contact Info) Description 10/29/1999 Outpatient Historical [facility],NON-PATIENT Hiram Trivedi MD [address] [place] [address] Social History Tobacco Use Types Packs/Day Years Used Date Smoking Tobacco: Never Assessed Comments Unknown Sex and Gender Information Value Date Recorded Sex Assigned at Not on file Legal Sex Female 4:21 AM HEAD START TEACHER Gender Identity Not on file Sexual Orientation Not on file documented as of this encounter Plan of Treatment Not on file documented as of this encounter Visit Diagnoses Not on filedocumented in this encounter Care Teams Computer Help Desk Representative Relationship Specialty Start Date End Date Cory Ayers DO PCP - General 07/27/15 documented as of this encounter
--- OUTSIDE RECORDS SUMMARY | 2025-06-16 15:09 | XMS_ITS | Encounter Summary ---
Author Organization [facility] Address [address] [facility] [address] [facility] [place] [address] Care Team Providers Care Cob Sawyer Name Role Phone Darnell Raymond MD Unavailable Stefani Mulligan MD Unavailable [phone] Dano Han MD Primary Care Provider Amalia Gregory MD Unavailable [phone] Encounter Details Date Type Department Care Team (Late st Contact Info) Description 12/06/2022 Lab Requisition [facility] [address] [facility] [place] [address] Parth Crain MD [facility] [place] [address] Social History Tobacco Use Types Packs/Day Years Used Date Smoking Tobacco: Never Smokeless Tobacco: Never Alcohol Use Standard Drinks/Week Comments No 0 (1 standard drink = 0.6 oz pur e alcohol) Comments Unknown Sex and Gender Information Value Date Recorded Sex Assigned at Not on file Legal Sex Female 6:13 PM PERSONNEL PLACEMENT SPECIALIST Gender Identity Female 01/16/2021 10:27 AM [...] AM CDT) Case Report Dermatopathology Report Case: [id number] Authorizing Provider: Parth Crain MD Collected: 12/05/2022 03:33 AM Ordering Location: [facility] Received: 12/06/2022 06:35 AM Pathologist: [...] specimen consists of a shave biopsy measuring [id number], [id number] and [id number]. Jar 0. 3 12:30 PM CDT DERMATOPATHOLOGY [...] purposes. Billing Codes Specimen Charges Stain Charges [id number] 1 3 12:30 PM CDT DERMATOPATHOLOGY LABORATORY Embedded Images 3 12:30 PM CDT DERMATOPATHOLOGY LABORATORY Pathology/Cytolo gy TISSUE SPECIMEN FROM SKIN / Unknown 12/05/2022 3:33 AM CDT 12/06/2022 6:35 AM CDT Parth Crain MD LAB - PATHOLOGY/CYTOLOGY ORDERAB LES Final Result DERMATOPATHOLOGY LABORATORY [facility] Department of Dermatology [address], [address] [phone] documented in this encounter Visit Diagnoses Not on filedocumented in this encounter Additional Health Concerns Infection Onset Date Last Indicated Resolved Time 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 [address] [place] [address] Rheumatology 10/26/20 documented as of this encounter
--- OUTSIDE RECORDS SUMMARY | 2025-06-16 15:09 | XMS_ITS | Encounter Summary ---
Author Organization [facility] Address [address] [facility] Attn: Epic Prelude ADT [place] [address] Care Team Providers Care Upholstery Parts Sorter Name Role Phone Cory Ayers DO Primary Care Provider Encounter Details Date Type Department Care Team (Late st Contact Info) Description 11/26/1989 Outpatient Historical Hiram Trivedi MD [facility] [place] [address] Social History Tobacco Use Types Packs/Day Years Used Date Smoking Tobacco: Never Assessed Comments Unknown Sex and Gender Information Value Date Recorded Sex Assigned at Not on file Legal Sex Female 4:21 AM CIGARETTE FILTER INSPECTOR Gender Identity Not on file Sexual Orientation Not on file documented as of this encounter Plan of Treatment Not on file documented as of this encounter Visit Diagnoses Not on filedocumented in this encounter Care Teams Upholstery Parts Sorter Relationship Specialty Start Date End Date Cory Ayers DO PCP - General 07/27/15 documented as of this encounter
--- OUTSIDE RECORDS SUMMARY | 2025-06-16 15:09 | XMS_ITS | Encounter Summary ---
Author Organization [facility] Address [address] [place] [address] Care Team Providers Care Vehicle Body Sander Name Role Phone Cory Ayers DO Primary Care Provider Encounter Details Date Type Department Care Team (Late st Contact Info) Description 10/06/2002 Outpatient Historical [facility] MRI DEPT [facility], [place] [address] [facility] [address] [place] [address] JOINT PAIN-L/LEG (Primary Dx) Social History Tobacco Use Types Packs/Day Years Used Date Smoking Tobacco: Never Assessed Comments Unknown Sex and Gender Information Value Date Recorded Sex Assigned at Not on file Legal Sex Female 4:21 AM MOLDED GOODS 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
--- OUTSIDE RECORDS SUMMARY | 2025-06-16 15:09 | XMS_ITS | Encounter Summary ---
Author Organization [facility] Address [address] [place] [address] Care Team Providers Care Netsuite Developer Name Role Phone Cory Ayers DO Primary Care Provider Encounter Details Date Type Department Care Team (Late st Contact Info) Description 06/23/2001 Outpatient Historical [facility] G [facility] Hiram Trivedi MD [address] [place] [address] Social History Tobacco Use Types Packs/Day Years Used Date Smoking Tobacco: Never Assessed Comments Unknown Sex and Gender Information Value Date Recorded Sex Assigned at Not on file Legal Sex Female 4:21 AM CLOTH FOLDER HAND Gender Identity Not on file Sexual Orientation Not on file documented as of this encounter Plan of Treatment Not on file documented as of this encounter Visit Diagnoses Not on filedocumented in this encounter Care Teams Netsuite Developer Relationship Specialty Start Date End Date Cory Ayers DO PCP - General 07/27/15 documented as of this encounter
--- OUTSIDE RECORDS SUMMARY | 2025-06-16 15:09 | XMS_ITS | Encounter Summary ---
Author Organization [facility] Address [address] [place] [address] Care Team Providers Care Ride Mechanic Name Role Phone Cory Ayersian Primary Care [...] on file Legal Sex Female 4:21 AM YIELD CLERK Gender Identity Not on file Sexual [...] [facility] Intranet at: [email or web address] Select: Lab Policies and Procedures Select: Reference Ranges - GFR 03/27/2007 5:55 AM CDT [employer] CHEMISTRY ORDERABLES Edited Performing Organization Address City/[facility] de Phone Number INTERFACE SYSTEM Refer to clinic/hospital department * HEMOGLOBIN AND HEMATOCRIT (03/27/2007 5:55 AM CDT) HEMOGLOBIN 13.7 11.8 - 14.8 g/dL INTERFACE SYSTEM HEMATOCRIT 40.3 35.5 - 44.0 % INTERFACE SYSTEM 03/27/2007 5:55 AM CDT [facility] HEMATOLOGY ORDERABLES Edited Performing Organization Address City/State/[facility] Co de Phone Number INTERFACE SYSTEM Refer to clinic/hospital department documented in this encounter Visit Diagnoses Diagnosis Specified congenital anomalies of breast- Primary documented in this encounter Care Teams Ride Mechanic Relationship Specialty Start Date End Date Cory Ayers DO PCP - General 07/27/15 documented as of this encounter
--- OUTSIDE RECORDS SUMMARY | 2025-06-16 15:09 | XMS_ITS | Encounter Summary ---
Author Organization [facility] Address [address] [place] [address] Care Team Providers Care Tv Production Assistant Name Role Phone Cory Ayers DO Primary Care Provider Darnell Raymond MD Unavailable Esthela Barksdale MD Primary Care Provider Un available Cory Ayers DO Primary Care Provider Cory Ayers DO Primary Care Provider Dano Han MD Primary Care Provider Stefani Mulligan MD Unavailable [phone] Cory Ayers DO Primary Care Provider [phone] Dano Han MD Primary Care Provider Amalia Gregory MD Unavailable Encounter Details Date Type Department Care Team (Late st Contact Info) Description 11/26/2017 [facility] Outpatient Visit [facility] [address] [place] [address] [place] [address] [address] Social History Tobacco Use Types Packs/Day Years Used Date Smoking Tobacco: Never Smokeless Tobacco: Never Alcohol Use Standard Drinks/Week Comments No 0 (1 standard drink = 0.6 oz pur e alcohol) Comments Unknown Sex and Gender Information Value Date Recorded Sex Assigned at Not on file Legal Sex Female 6:13 PM CURTAIN FITTER Gender Identity Female 01/16/2021 10:27 AM CDT [...] documented as of this encounter Care Teams Tv Production Assistant Relationship Specialty Start Date End Date Cory Ayers DO PCP - General Internal Medicine 10/30/17 06/10/19 Esthela Barksdale MD [address] [place] [address] PCP - General Family Medicine 07/07/19 01/16/20 Cory Ayers DO [address] [place] [address] PCP - General 01/17/20 03/19/20 Cory Ayers DO [address] [place] [address] PCP - General 03/23/20 03/27/20 Dano Han [place] [address] [place] [address] PCP - General Family Medicine 03/28/20 03/30/20 Cory Ayers DO [address] [place] [address] PCP - General 03/31/20 04/02/20 Dano Han MD [address] [place] [address] PCP - General 04/03/20 [place] [address] [place] [address] Orthopedic Surgery 10/30/17 [place] [address] [place] [address] Registered Massage Therapist Cardiovascular Disease 03/28/20 [place] [address] [place] [address] Rheumatology 10/26/20 documented as of this encounter
--- OUTSIDE RECORDS SUMMARY | 2025-06-16 15:09 | XMS_ITS | Clinical Summary ---
Author Organization [facility] Address [address] [place] [address] Care Team Providers Care Associate Software Developer Name Role Phone Darnell Raymond MD Unavailable [phone] Stefani Mulligan MD Unavailable Dano Han MD Primary Care Provider Amalia Gregory MD Unavailable [phone] Source Comments [facility],non-owned Affiliates and Associated Physician Practices is amultiple site organization consisting of ambulatory clinics and hospital sitesin [place]. This disclosure is being madepursuant to the Care Everywhere program and may not contain all information available regarding this patient. Last updated 18.[facility] [email or web address] Allergies No known active allergies Medications * [...] on file Legal Sex Female 6:13 PM MEDICAL SCIENTIST Gender Identity Female 01/16/2021 10:27 AM CDT Sexual Orientation Not on file Last Filed Vital Signs Vital Sign Reading Time Taken Comments Blood Pressure 159/91 10/08/2023 10:15 AM MEDICAL SCIENTIST Pulse 76 10/08/2023 10:15 AM MEDICAL SCIENTIST Temperature 36.2 C (97.1 F) 07/12/2021 8:47 AM MEDICAL SCIENTIST Respiratory Rate 18 03/26/2021 10:24 AM CDT Oxygen Saturation 98% 10/26/2020 11:25 AM CDT Inhaled Oxygen Concentration - - Weight 70.3 kg (155 lb) 10/08/2023 10:15 AM MEDICAL SCIENTIST Height 157.5 cm (5' 2) 10/08/2023 10:15 AM MEDICAL SCIENTIST Body Mass Index 28.35 10/08/2023 10:15 AM MEDICAL SCIENTIST Plan of Treatment Health Maintenance Due Date [...] this topic Medical Devices Implanted Type Area Culinary Worker Device Identifier Shelf Expiration Date Model / Serial / Lot Cmnt Bone Cblt 40gm Hvisc Strl Implanted:Qty: 1 on 12/15/2017 by Darnell Raymond MD at [facility] Right: Knee [employer] 06/10/2019 600-15-000 / / [id number] Cmpnt Fem Kn Rt Cr Cmnt Prm Vngrd Intlk Implanted:Qty: 1 on 12/15/2017 by Darnell Raymond MD at [facility] Right: Knee [employer] 09/14/2027 [id number] / / [id number] Tray Tib 71mm Kn Cocr I Beam Implanted:Qty: 1 on 12/15/2017 by Darnell Raymond MD at [facility] Right: Knee [employer] 08/07/2027 [id number] / / [id number] Cmpnt Ptlr 28mm 1 Pg Wire Ascnt Arcm Kn Implanted:Qty: 1 on 12/15/2017 by Darnell Raymond MD at [facility] Right: Knee [employer] 09/01/2022 [id number] / / [id number] Brng [id number] Vngrd Arcm Kn Ant Stab Implanted:Qty: 1 on 12/15/2017 by Darnell Raymond MD at [facility] Right: Knee [employer] 09/04/2022 [id number] / / [id number] Additional Health Concerns Infection Onset Date Last [...] 2:10 PM 12/18/2017 2:18 PM Care Teams Associate Software Developer Relationship Specialty Start Date End Date Dano Han MD [address] [place] [address] PCP - General 04/03/20 [place] [address] [place] [address] Orthopedic Surgery 10/30/17 [place] [address] [place] [address] Nuclear Medical Technologist Cardiovascular Disease 03/28/20 [place] [address] [place] [address] Rheumatology 10/26/20
--- OUTSIDE RECORDS SUMMARY | 2025-06-16 15:09 | XMS_ITS | Encounter Summary ---
Author Organization [facility] Address [address] [facility] Attn: [place] [address] Care Team Providers Care Social Media Manager Name Role Phone Cory Ayers DO Primary Care Provider Encounter Details Date Type Department Care Team (Late st Contact Info) Description 10/06/1997 Outpatient Historical Conversion, History Hiram Trivedi MD [address] [place] [address] Social History Tobacco Use Types Packs/Day Years Used Date Smoking Tobacco: Never Assessed Comments Unknown Sex and Gender Information Value Date Recorded Sex Assigned at Not on file Legal Sex Female 4:21 AM CHEF'S ASSISTANT Gender Identity Not on file Sexual Orientation Not on file documented as of this encounter Plan of Treatment Not on file documented as of this encounter Visit Diagnoses Not on filedocumented in this encounter Care Teams Social Media Manager Relationship Specialty Start Date End Date Cory Ayers DO PCP - General 07/27/15 documented as of this encounter
--- OUTSIDE RECORDS SUMMARY | 2025-06-16 15:09 | XMS_ITS | Clinical Summary ---
Author Organization [facility] Address [address] [place] [address] Care Team Providers Care Locker Room Clerk Name Role Phone Dano Hna MD Primary Care Provider Allergies No known [...] file Legal Sex Female 3:34 AM LEAD FIRE PROTECTION ENGINEER Gender Identity Not on file Sexual [...] 05/13/2019, [place] [address] MEDICARE [facility] MEDICARE [facility] MEDICARE ADVANTAGE Care Teams Locker Room Clerk Relationship Specialty Start Date End Date Dano Han MD PCP - General Family Practice 08/31/21
--- OUTSIDE RECORDS SUMMARY | 2025-06-16 15:09 | XMS_ITS | Encounter Summary ---
Author Organization [facility] Address [address] [place] [address] Care Team Providers Care Manager Trading Name Role Phone Cory Ayers DO Primary Care Provider Encounter Details Date Type Department Care Team (Late st Contact Info) Description 10/29/1999 Outpatient Historical [facility] Hiram Trivedi MD [facility] [place] [address] Social History Tobacco Use Types Packs/Day Years Used Date Smoking Tobacco: Never Assessed Comments Unknown Sex and Gender Information Value Date Recorded Sex Assigned at Not on file Legal Sex Female 4:21 AM OPTICAL INSTRUMENT ASSEMBLY SUPERVISOR Gender Identity Not on file Sexual Orientation Not on file documented as of this encounter Plan of Treatment Not on file documented as of this encounter Visit Diagnoses Not on filedocumented in this encounter Care Teams Manager Trading Relationship Specialty Start Date End Date Cory Ayers DO PCP - General 07/27/15 documented as of this encounter
--- OUTSIDE RECORDS SUMMARY | 2025-06-16 15:09 | XMS_ITS | Encounter Summary ---
Author Organization [facility] Address [address] [place] [address] Care Team Providers Care Roofer Applicator Name Role Phone Cory Ayers DO Primary Care Provider Encounter Details Date Type Department Care Team (Latest Contact Info) Description 09/23/2002 Outpatient Historical HIS CARDIOPULMONARY Antolin Modi MD [address] [facility] [address] [address] SWELLING OF LIMB (Primary Dx) Social History Tobacco Use Types Packs/Day Years Used Date Smoking Tobacco: Never Assessed Comments Unknown Sex and Gender Information Value Date Recorded Sex Assigned at Not on file Legal Sex Female 4:21 AM NATURAL SCIENCE MANAGER Gender Identity Not on file Sexual Orientation Not on file documented as of this encounter Plan of Treatment Not on file documented as of this encounter Visit Diagnoses Diagnosis Swelling of limb- Primary documented in this encounter Care Teams Roofer Applicator Relationship Specialty Start Date End Date Cory Ayers DO PCP - General 07/27/15 documented as of this encounter
--- OUTSIDE RECORDS SUMMARY | 2025-06-16 15:09 | XMS_ITS | Encounter Summary ---
Author Organization [facility] Address [address] [place] [address] Care Team Providers Care Electrical Continuity Tester Name Role Phone Cory Ayers DO Primary Care Provider Encounter Details Date Type Department Care Team (Late st Contact Info) Description 07/26/2002 Inpatient Historical [facility] SUR[facility]ERY [facility] Antolin Modi MD [address] 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
--- OUTSIDE RECORDS SUMMARY | 2025-06-16 15:09 | XMS_ITS | Encounter Summary ---
Author Organization [facility] Address [address] [place] [address] Care Team Providers Care Fixed Income Trading Vice President Name Role Phone Cory Ayers DO Primary Care Provider Encounter Details Date Type Department Care Team (Late st Contact Info) Description 02/01/2000 Outpatient Historical HIS G [facility] Hiram Trivedi MD [address] [place] [address] Social History Tobacco Use Types Packs/Day Years Used Date Smoking Tobacco: Never Assessed Comments Unknown Sex and Gender Information Value Date Recorded Sex Assigned at Not on file Legal Sex Female 4:21 AM MANAGEMENT LIAISON Gender Identity Not on file Sexual Orientation Not on file documented as of this encounter Plan of Treatment Not on file documented as of this encounter Visit Diagnoses Not on filedocumented in this encounter Care Teams Fixed Income Trading Vice President Relationship Specialty Start Date End Date Cory Ayers DO PCP - General 07/27/15 documented as of this encounter
--- OUTSIDE RECORDS SUMMARY | 2025-06-16 15:09 | XMS_ITS | Encounter Summary ---
Author Organization [facility] Address [address] [place] [address] Care Team Providers Care Vehicle Service Agent Name Role Phone Cory Ayers DO Primary Care Provider Encounter Details Date Type Department Care Team (Late st Contact Info) Description 07/12/2002 Outpatient Historical [facility] Support Serv. (Adt Cardiology-[facility]) [address] [place] [address] Darnell Hernandez Social History Tobacco Use Types Packs/Day Years Used Date Smoking Tobacco: Never Assessed Comments Unknown Sex and Gender Information Value Date Recorded Sex Assigned at Not on file Legal Sex Female 4:21 AM COMMERCIAL INSTALLER Gender Identity Not on file Sexual Orientation Not on file documented as of this encounter Plan of Treatment Not on file documented as of this encounter Visit Diagnoses Not on filedocumented in this encounter Care Teams Vehicle Service Agent Relationship Specialty Start Date End Date Cory Ayers DO PCP - General 07/27/15 documented as of this encounter
--- OUTSIDE RECORDS SUMMARY | 2025-06-16 15:09 | XMS_ITS | Clinical Summary ---
Author Organization [facility] Address [address] [facility] [place] [address] Phone Care Team Providers Care Forming Tube Selector Name Role Phone AgapitoCory molina Alvarez Primary [...] on file Legal Sex Female 4:21 AM COMMUNITY LIAISON Gender Identity Not on file Sexual [...] series) 2014 INFLUENZA VACCINE (#1) [address] [place] [address] MEDICARE PART A AND B General Compression/TRUE Fluential PPO Care Teams Forming Tube Selector Relationship Specialty Start Date End Date Cory Ayers DO PCP - General 07/27/15
--- OUTSIDE RECORDS SUMMARY | 2025-06-16 15:09 | XMS_ITS | Encounter Summary ---
Author Organization [facility] Address [address] [facility] Attn: Epic Prelude ADT [place] [address] Care Team Providers Care Levelman Name Role Phone Cory Ayers DO Primary Care Provider Encounter Details Date Type Department Care Team (Late st Contact Info) Description 01/08/1994 Outpatient Historical Hiram Trivedi MD [facility] [place] [address] Social History Tobacco Use Types Packs/Day Years Used Date Smoking Tobacco: Never Assessed Comments Unknown Sex and Gender Information Value Date Recorded Sex Assigned at Not on file Legal Sex Female 4:21 AM REGISTERED RADIOGRAPHER Gender Identity Not on file Sexual Orientation Not on file documented as of this encounter Plan of Treatment Not on file documented as of this encounter Visit Diagnoses Not on filedocumented in this encounter Care Teams Levelman Relationship Specialty Start Date End Date Cory Ayers DO PCP - General 07/27/15 documented as of this encounter
--- OUTSIDE RECORDS SUMMARY | 2025-06-16 15:09 | XMS_ITS | Encounter Summary ---
Author Organization [facility] Address [address] [place] [address] Care Team Providers Care Senior Government Program Analyst Name Role Phone Cory Ayers DO Primary Care Provider Encounter Details Date Type Department Care Team (Late st Contact Info) Description 09/11/2002 Outpatient Historical [facility] SUR[facility] Antolin Modi MD [address] [facility] [address] [address] COMPLIC-URINARY TRACT (Primary Dx) Social History Tobacco Use Types Packs/Day Years Used Date Smoking Tobacco: Never Assessed Comments Unknown Sex and Gender Information Value Date Recorded Sex Assigned at Not on file Legal Sex Female 4:21 AM IMMIGRATION SPECIALIST Gender Identity Not on file Sexual Orientation Not on file documented as of this encounter Plan of Treatment Not on file documented as of this encounter Visit Diagnoses Diagnosis Urinary complications- Primary documented in this encounter Care Teams Senior Government Program Analyst Relationship Specialty Start Date End Date Cory Ayers DO PCP - General 07/27/15 documented as of this encounter
--- OUTSIDE RECORDS SUMMARY | 2025-06-16 15:09 | XMS_ITS | Encounter Summary ---
Author Organization [facility] Address [address] [place] [address] Care Team Providers Care Manager Roofing Name Role Phone Cory Ayers DO Primary Care Provider Encounter Details Date Type Department Care Team (Latest Contact Info) Description 05/09/1999 Outpatient Historical HIS [place] [address] [facility] [place] [address] Localized adiposity (Primary Dx) Social History Tobacco Use Types Packs/Day Years Used Date Smoking Tobacco: Never Assessed Comments Unknown Sex and Gender Information Value Date Recorded Sex Assigned at Not on file Legal Sex Female 4:21 AM SILVERING 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
--- OUTSIDE RECORDS SUMMARY | 2025-06-16 15:09 | XMS_ITS | Encounter Summary ---
Author Organization [facility] Address [address] [facility] [place] [address] Care Team Providers Care Vocational Aide Name Role Phone Darnell Raymond MD Unavailable Stefani Mulligan MD Unavailable [phone] Dano Han MD Primary Care Provider Amalia Gregory MD Unavailable [phone] Encounter Details Date Type Department Care Team (Late st Contact Info) Description 01/02/2023 Lab Requisition [facility] [address] [facility] [place] [phone] Parth Crain MD [address] [place] [address] Social History Tobacco Use Types Packs/Day Years Used Date Smoking Tobacco: Never Smokeless Tobacco: Never Alcohol Use Standard Drinks/Week Comments No 0 (1 standard drink = 0.6 oz pur e alcohol) Comments Unknown Sex and Gender Information Value Date Recorded Sex Assigned at Not on file Legal Sex Female 6:13 PM TRACTOR MECHANIC APPRENTICE Gender Identity Female 01/16/2021 10:27 AM CDT [...] AM CDT) Case Report Dermatopathology Report Case: [id number] Authorizing Provider: Parth Crain MD Collected: 01/01/2023 12:00 AM Ordering Location: [facility] Received: 01/02/2023 08:56 AM [...] specimen consists of two shaved biopsies measuring 88g17a3 and 6x6x1 mm. Jar 0. 3 5:48 [...] characteristic determined by the Dermatopathology Laboratory at [facility], directed by Dr. Maryam Mendoza. These tests need not be, and therefore are not, approved by the [place] Food and Drug Administration. The tests are used for clinical purposes. Billing Codes Specimen Charges Stain Charges 05228 1 3 5:48 PM CDT DERMATOPATHOLOGY LABORATORY Embedded Images 3 5:48 PM CDT DERMATOPATHOLOGY LABORATORY Pathology/Cytolog y TISSUE SPECIMEN FROM SKIN / Unknown 01/01/2023 01/02/2023 8:56 AM CDT Parth Crain MD LAB - PATHOLOGY/CYTOLOGY ORDERAB LES Final Result DERMATOPATHOLOGY LABORATORY [facility] Department of Dermatology [facility] Medicine [address] [place] [address], [address] [phone] documented in this encounter Visit Diagnoses Not on filedocumented in this encounter Additional Health Concerns Infection Onset Date Last Indicated Resolved Time 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
--- OUTSIDE RECORDS SUMMARY | 2025-06-16 15:43 | XMS_ITS | Encounter Summary ---
Author Organization [facility] Address [address] [place] [address] Care Team Providers Care Front Office Developer Name Role Phone Cory Ayers DO Primary Care Provider Encounter Details Date Type Department Care Team (Late st Contact Info) Description 07/12/2002 Outpatient Historical [facility] Support Serv. (Adt Cardiology-[facility]) [address] [place] [address] Darnell Hernandez Social History Tobacco Use Types Packs/Day Years Used Date Smoking Tobacco: Never Assessed Comments Unknown Sex and Gender Information Value Date Recorded Sex Assigned at Not on file Legal Sex Female 4:21 AM DIGESTER CAPPER Gender Identity Not on file Sexual Orientation Not on file documented as of this encounter Plan of Treatment Not on file documented as of this encounter Visit Diagnoses Not on filedocumented in this encounter Care Teams Front Office Developer Relationship Specialty Start Date End Date Cory Ayers DO PCP - General 07/27/15 documented as of this encounter
--- OUTSIDE RECORDS SUMMARY | 2025-06-16 15:43 | XMS_ITS | Encounter Summary ---
Author Organization [facility] Address [address] [place] [address] Care Team Providers Care Hand Decorator Name Role Phone Cory Ayers DO Primary Care Provider Encounter Details Date Type Department Care Team (Late st Contact Info) Description 07/26/2002 Inpatient Historical [facility] SUR[facility]ERY [facility] Antolin Modi MD [address] [facility] [address] [place] [address] POSTOP VAGINAL PROLAPSE (Primary Dx) Social History Tobacco Use Types Packs/Day Years Used Date Smoking Tobacco: Never Assessed Comments Unknown Sex and Gender Information Value Date Recorded Sex Assigned at Not on file Legal Sex Female 4:21 AM TRUCK 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
--- OUTSIDE RECORDS SUMMARY | 2025-06-16 15:43 | XMS_ITS | Encounter Summary ---
Author Organization [facility] Address [address] [facility] Attn: [place] [address] Care Team Providers Care Textile Machinery Instructor Name Role Phone Cory Ayers DO Primary Care Provider Encounter Details Date Type Department Care Team (Late st Contact Info) Description 10/06/1997 Outpatient Historical Conversion, History Hiram Trivedi MD [address] [place] [address] Social History Tobacco Use Types Packs/Day Years Used Date Smoking Tobacco: Never Assessed Comments Unknown Sex and Gender Information Value Date Recorded Sex Assigned at Not on file Legal Sex Female 4:21 AM CRYSTAL GRINDER Gender Identity Not on file Sexual Orientation Not on file documented as of this encounter Plan of Treatment Not on file documented as of this encounter Visit Diagnoses Not on filedocumented in this encounter Care Teams Textile Machinery Instructor Relationship Specialty Start Date End Date Cory Ayers DO PCP - General 07/27/15 documented as of this encounter
--- OUTSIDE RECORDS SUMMARY | 2025-06-16 15:43 | XMS_ITS | Encounter Summary ---
Author Organization [facility] Address [address] [place] [address] Care Team Providers Care Energy Derivatives Trader Name Role Phone Cory Ayers DO Primary Care Provider Encounter Details Date Type Department Care Team (Latest Contact Info) Description 09/23/2002 Outpatient Historical HIS CARDIOPULMONARY Antolin Modi MD [address] [facility] [address] [address] SWELLING OF LIMB (Primary Dx) Social History Tobacco Use Types Packs/Day Years Used Date Smoking Tobacco: Never Assessed Comments Unknown Sex and Gender Information Value Date Recorded Sex Assigned at Not on file Legal Sex Female 4:21 AM ANTIQUE JEWELRY REPAIRER Gender Identity Not on file Sexual Orientation Not on file documented as of this encounter Plan of Treatment Not on file documented as of this encounter Visit Diagnoses Diagnosis Swelling of limb- Primary documented in this encounter Care Teams Energy Derivatives Trader Relationship Specialty Start Date End Date Cory Ayers DO PCP - General 07/27/15 documented as of this encounter
--- OUTSIDE RECORDS SUMMARY | 2025-06-16 15:43 | XMS_ITS | Encounter Summary ---
Author Organization [facility] Address [address] [place] [address] Care Team Providers Care Hand Brim Ironer Name Role Phone Cory Ayers DO Primary Care Provider Encounter Details Date Type Department Care Team (Late st Contact Info) Description 02/01/2000 Outpatient Historical HIS G [facility] INTERNISTS Hiram Trivedi MD [address] [place] [address] Social History Tobacco Use Types Packs/Day Years Used Date Smoking Tobacco: Never Assessed Comments Unknown Sex and Gender Information Value Date Recorded Sex Assigned at Not on file Legal Sex Female 4:21 AM CASSANDRA DEVELOPER Gender Identity Not on file Sexual Orientation Not on file documented as of this encounter Plan of Treatment Not on file documented as of this encounter Visit Diagnoses Not on filedocumented in this encounter Care Teams Hand Brim Ironer Relationship Specialty Start Date End Date Cory Ayers DO PCP - General 07/27/15 documented as of this encounter
--- OUTSIDE RECORDS SUMMARY | 2025-06-16 15:43 | XMS_ITS | Encounter Summary ---
Author Organization [facility] Address [address] [place] [address] Care Team Providers Care Running Specialist Name Role Phone Cory Ayers DO [...] on file Legal Sex Female 4:21 AM MACHINE MAINTENANCE SUPERVISOR Gender Identity Not on file Sexual Orientation Not on file documented as of this encounter Plan of Treatment Not on file documented as of this encounter Visit Diagnoses Diagnosis Disorders of bursae and tendons in shoulder region, unspecified- Primary documented in this encounter Care Teams Running Specialist Relationship Specialty Start Date End Date Cory Ayers DO PCP - General 07/27/15 documented as of this encounter
--- OUTSIDE RECORDS SUMMARY | 2025-06-16 15:43 | XMS_ITS | Encounter Summary ---
Author Organization [facility] Address [address] [place] [address] Care Team Providers Care Metal Container Maker Name Role Phone Cory Ayers DO Primary Care Provider Encounter Details Date Type Department Care Team (Late st Contact Info) Description 09/17/2002 Outpatient Historical HIS LAB, [address] Antolin Modi MD [address] [place] [address] [address] [address] URIN TRACT INFECTION NOS (Primary Dx) Social History Tobacco Use Types Packs/Day Years Used Date Smoking Tobacco: Never Assessed Comments Unknown Sex and Gender Information Value Date Recorded Sex Assigned at Not on file Legal Sex Female 4:21 AM BLOOD TYPER Gender Identity Not on file Sexual Orientation Not on file documented as of this encounter Plan of Treatment Not on file documented as of this encounter Visit Diagnoses Diagnosis Urinary tract infection, site not specified- Primary documented in this encounter Care Teams Metal Container Maker Relationship Specialty Start Date End Date Cory Ayers DO PCP - General 07/27/15 documented as of this encounter
--- OUTSIDE RECORDS SUMMARY | 2025-06-16 15:43 | XMS_ITS | Clinical Summary ---
Author Organization [facility] Address [address] [place] [address] Care Team Providers Care Food Cashier Name Role Phone Dano Han MD Primary [...] on file Legal Sex Female 3:34 AM AIRCRAFT SKIN BURNISHER Gender Identity Not on file Sexual Orientation [...] 05/13/2019, [place] [address] [place] [address] MEDICARE [facility] MEDICARE [facility] MEDICARE ADVANTAGE Care Teams Food Cashier Relationship Specialty Start Date End Date Dano Han MD PCP - General Family Practice 08/31/21
--- OUTSIDE RECORDS SUMMARY | 2025-06-16 15:43 | XMS_ITS | Encounter Summary ---
Author Organization [facility] Address [address] [place] [address] Care Team Providers Care Angle Dozer Operator Name Role Phone Cory Ayers DO Primary Care Provider Encounter Details Date Type Department Care Team (Late st Contact Info) Description 10/06/2002 Outpatient Historical HIS MRI DEPT [facility], [place] [address] [facility] [address] [place] [address] JOINT PAIN-L/LEG (Primary Dx) Social History Tobacco Use Types Packs/Day Years Used Date Smoking Tobacco: Never Assessed Comments Unknown Sex and Gender Information Value Date Recorded Sex Assigned at Not on file Legal Sex Female 4:21 AM SENIOR PARALEGAL Gender Identity Not on file Sexual Orientation Not on file documented as of this encounter Plan of Treatment Not on file documented as of this encounter Visit Diagnoses Diagnosis Pain in joint, lower leg- Primary documented in this encounter Care Teams Angle Dozer Operator Relationship Specialty Start Date End Date Cory Ayers DO PCP - General 07/27/15 documented as of this encounter
--- OUTSIDE RECORDS SUMMARY | 2025-06-16 15:43 | XMS_ITS | Encounter Summary ---
Author Organization [facility] Address [address] [place] [address] Care Team Providers Care Workforce Planning Analyst Name Role Phone Cory Ayers DO Primary Care Provider Encounter Details Date Type Department Care Team (Late st Contact Info) Description 10/29/1999 Outpatient Historical HIS LAB,NON-PATIENT Hiram Trivedi MD [address] [place] [address] Social History Tobacco Use Types Packs/Day Years Used Date Smoking Tobacco: Never Assessed Comments Unknown Sex and Gender Information Value Date Recorded Sex Assigned at Not on file Legal Sex Female 4:21 AM LOCKSMITH APPRENTICE Gender Identity Not on file Sexual Orientation Not on file documented as of this encounter Plan of Treatment Not on file documented as of this encounter Visit Diagnoses Not on filedocumented in this encounter Care Teams Workforce Planning Analyst Relationship Specialty Start Date End Date Cory Ayers DO PCP - General 07/27/15 documented as of this encounter
--- OUTSIDE RECORDS SUMMARY | 2025-06-16 15:43 | XMS_ITS | Encounter Summary ---
Author Organization [facility] Address [address] [place] [address] Care Team Providers Care Event Marketing Specialist Name Role Phone Cory Ayers DO Primary Care Provider Encounter Details Date Type Department Care Team (Late st Contact Info) Description 10/29/1999 Outpatient Historical HIS G [facility] INTERNISTS Hiram Trivedi MD [facility] [place] [address] Social History Tobacco Use Types Packs/Day Years Used Date Smoking Tobacco: Never Assessed Comments Unknown Sex and Gender Information Value Date Recorded Sex Assigned at Not on file Legal Sex Female 4:21 AM MARKET MAKER Gender Identity Not on file Sexual Orientation Not on file documented as of this encounter Plan of Treatment Not on file documented as of this encounter Visit Diagnoses Not on filedocumented in this encounter Care Teams Event Marketing Specialist Relationship Specialty Start Date End Date Cory Ayers DO PCP - General 07/27/15 documented as of this encounter
--- OUTSIDE RECORDS SUMMARY | 2025-06-16 15:43 | XMS_ITS | Clinical Summary ---
Author Organization [facility] Address [address] [facility] [place] [address] Phone Care Team Providers Care Aws Consultant Name Role Phone AgapitoCory molina Alvarez Primary [...] on file Legal Sex Female 4:21 AM RETAIL EXPERIENCE SPECIALIST Gender Identity Not on file Sexual [...] series) 2014 INFLUENZA VACCINE (#1) [address] [place] [address] MEDICARE PART A AND B [employer] PPO Care Teams Aws Consultant Relationship Specialty Start Date End Date Cory Ayers DO PCP - General 07/27/15
--- OUTSIDE RECORDS SUMMARY | 2025-06-16 15:43 | XMS_ITS | Encounter Summary ---
Author Organization [facility] Address [address] [facility] Attn: Epic Prelude ADT [place] [address] Care Team Providers Care Merchandise Support Associate Name Role Phone Cory Ayers DO Primary Care Provider Encounter Details Date Type Department Care Team (Late st Contact Info) Description 11/26/1989 Outpatient Historical Hiram Trivedi MD [facility] [place] [address] Social History Tobacco Use Types Packs/Day Years Used Date Smoking Tobacco: Never Assessed Comments Unknown Sex and Gender Information Value Date Recorded Sex Assigned at Not on file Legal Sex Female 4:21 AM SOA ARCHITECT Gender Identity Not on file Sexual Orientation Not on file documented as of this encounter Plan of Treatment Not on file documented as of this encounter Visit Diagnoses Not on filedocumented in this encounter Care Teams Merchandise Support Associate Relationship Specialty Start Date End Date Cory Ayers DO PCP - General 07/27/15 documented as of this encounter
--- OUTSIDE RECORDS SUMMARY | 2025-06-16 15:43 | XMS_ITS | Encounter Summary ---
Author Organization [facility] Address [address] [place] [address] Care Team Providers Care Carriage Feeder Name Role Phone Cory Ayers DO Primary Care Provider Encounter Details Date Type Department Care Team (Latest Contact Info) Description 05/09/1999 Outpatient Historical HIS [place] [address] [facility] [place] [address] Localized adiposity (Primary Dx) Social History Tobacco Use Types Packs/Day Years Used Date Smoking Tobacco: Never Assessed Comments Unknown Sex and Gender Information Value Date Recorded Sex Assigned at Not on file Legal Sex Female 4:21 AM HOT BOX OPERATOR Gender Identity Not on file Sexual Orientation Not on file documented as of this encounter Plan of Treatment Not on file documented as of this encounter Visit Diagnoses Diagnosis Localized adiposity- Primary documented in this encounter Care Teams Carriage Feeder Relationship Specialty Start Date End Date Cory Ayers DO PCP - General 07/27/15 documented as of this encounter
--- OUTSIDE RECORDS SUMMARY | 2025-06-16 15:43 | XMS_ITS | Encounter Summary ---
Author Organization [facility] Address [address] [place] [address] Care Team Providers Care Sand Car Worker Name Role Phone Cory Ayers DO Primary Care Provider Encounter Details Date Type Department Care Team (Late st Contact Info) Description 06/23/2001 Outpatient Historical HIS G [facility] INTERNISTS Hiram Trivedi MD [address] [place] [address] Social History Tobacco Use Types Packs/Day Years Used Date Smoking Tobacco: Never Assessed Comments Unknown Sex and Gender Information Value Date Recorded Sex Assigned at Not on file Legal Sex Female 4:21 AM PM TECHNICIAN Gender Identity Not on file Sexual Orientation Not on file documented as of this encounter Plan of Treatment Not on file documented as of this encounter Visit Diagnoses Not on filedocumented in this encounter Care Teams Sand Car Worker Relationship Specialty Start Date End Date Cory Ayers DO PCP - General 07/27/15 documented as of this encounter
--- OUTSIDE RECORDS SUMMARY | 2025-06-16 15:43 | XMS_ITS | Encounter Summary ---
Author Organization [facility] Address [address] [place] [address] Care Team Providers Care Rn Cardiac Cath Name Role Phone Cory Ayersian Primary Care [...] on file Legal Sex Female 4:21 AM FLIGHT COMMUNICATIONS OPERATOR Gender Identity Not on file Sexual [...] Americans [facility] available on the [facility] Intr[facility] at: [email or web address] Select: Lab Policies and Procedures Select: Reference Ranges - GFR 03/27/2007 5:55 AM CDT [facility] CHEMISTRY ORDERABLES Edited Performing Organization Address City/[facility] de Phone Number INTERFACE SYSTEM Refer to clinic/hospital department * HEMOGLOBIN AND HEMATOCRIT (03/27/2007 5:55 AM CDT) HEMOGLOBIN 13.7 11.8 - 14.8 g/dL INTERFACE SYSTEM HEMATOCRIT 40.3 35.5 - 44.0 % INTERFACE SYSTEM 03/27/2007 5:55 AM CDT [facility] HEMATOLOGY ORDERABLES Edited Performing Organization Address City/State/[facility] Co de Phone Number INTERFACE SYSTEM Refer to clinic/hospital department documented in this encounter Visit Diagnoses Diagnosis Specified congenital anomalies of breast- Primary documented in this encounter Care Teams Rn Cardiac Cath Relationship Specialty Start Date End Date Cory Ayers DO PCP - General 07/27/15 documented as of this encounter
--- OUTSIDE RECORDS SUMMARY | 2025-06-16 15:43 | XMS_ITS | Encounter Summary ---
Author Organization [facility] Address [address] [place] [address] Care Team Providers Care Animal Pathology Teacher Name Role Phone Cory Ayers DO Primary Care Provider Encounter Details Date Type Department Care Team (Late st Contact Info) Description 09/11/2002 Outpatient Historical HIS SURGERY CTR Antolin Modi MD [address] [facility] [address] [address] COMPLIC-URINARY TRACT (Primary Dx) Social History Tobacco Use Types Packs/Day Years Used Date Smoking Tobacco: Never Assessed Comments Unknown Sex and Gender Information Value Date Recorded Sex Assigned at Not on file Legal Sex Female 4:21 AM PATIENT FINANCIAL SERVICES SPECIALIST Gender Identity Not on file Sexual Orientation Not on file documented as of this encounter Plan of Treatment Not on file documented as of this encounter Visit Diagnoses Diagnosis Urinary complications- Primary documented in this encounter Care Teams Animal Pathology Teacher Relationship Specialty Start Date End Date Cory Ayers DO PCP - General 07/27/15 documented as of this encounter
--- OUTSIDE RECORDS SUMMARY | 2025-06-16 15:43 | XMS_ITS | Encounter Summary ---
Author Organization [facility] Address [address] [facility] Attn: Epic Prelude ADT [place] [address] Care Team Providers Care Commercial Property Administrator Name Role Phone Cory Ayers DO Primary Care Provider Encounter Details Date Type Department Care Team (Late st Contact Info) Description 01/08/1994 Outpatient Historical Hiram Trivedi MD [facility] [place] [address] Social History Tobacco Use Types Packs/Day Years Used Date Smoking Tobacco: Never Assessed Comments Unknown Sex and Gender Information Value Date Recorded Sex Assigned at Not on file Legal Sex Female 4:21 AM OFFICE SUPPORT ASSISTANT Gender Identity Not on file Sexual Orientation Not on file documented as of this encounter Plan of Treatment Not on file documented as of this encounter Visit Diagnoses Not on filedocumented in this encounter Care Teams Commercial Property Administrator Relationship Specialty Start Date End Date Cory Ayers DO PCP - General 07/27/15 documented as of this encounter
--- OUTSIDE RECORDS SUMMARY | 2025-06-16 15:43 | XMS_ITS | Encounter Summary ---
Author Organization [facility] Address [address] [place] [address] Care Team Providers Care Sheet Taker Name Role Phone Cory Ayers DO Primary Care Provider Darnell Raymond MD Unavailable Esthela Barksdale MD Primary Care Provider Un available Cory Ayers DO Primary Care Provider Cory Ayers DO Primary Care Provider Dano Han MD Primary Care Provider Stefani Mulligan MD Unavailable [phone] Cory Ayers DO Primary Care Provider [phone] Dano Han MD Primary Care Provider Amalia Gregory MD Unavailable [phone] Encounter Details Date Type Department Care Team (Late st Contact Info) Description 11/26/2017 [facility] Outpatient Visit [facility] [address] [place] [address] [place] [address] [address] Social History Tobacco Use Types Packs/Day Years Used Date Smoking Tobacco: Never Smokeless Tobacco: Never Alcohol Use Standard Drinks/Week Comments No 0 (1 standard drink = 0.6 oz pur e alcohol) Comments Unknown Sex and Gender Information Value Date Recorded Sex Assigned at Not on file Legal 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 Gender Identity Female 01/16/2021 10:27 AM [...] documented as of this encounter Care Teams Sheet Taker Relationship Specialty Start Date End Date Cory Ayers DO PCP - General Internal Medicine 10/30/17 06/10/19 Esthela Barksdale MD [address] [place] [address] PCP - General Family Medicine 07/07/19 01/16/20 Cory Ayers DO [address] [place] [address] PCP - General 01/17/20 03/19/20 Cory Ayers DO [address] [place] [address] PCP - General 03/23/20 03/27/20 Dano Han MD [address] [place] [address] PCP - General Family Medicine 03/28/20 03/30/20 Cory Ayers DO [address] [place] [address] PCP - General 03/31/20 04/02/20 Dano Han MD [address] [place] [address] PCP - General 04/03/20 [place] [address] [place] [address] Orthopedic Surgery 10/30/17 [place] [address] [place] [address] Training Manager Cardiovascular Disease 03/28/20 [place] [address] [place] [address] Rheumatology 10/26/20 documented as of this encounter
--- OUTSIDE RECORDS SUMMARY | 2025-06-16 15:44 | XMS_ITS | Encounter Summary ---
Author Organization [facility] Address [address] [place] [address] Care Team Providers Care Stenotypist Name Role Phone Darnell Raymond MD Unavailable Stefani Mulligan MD Unavailable [phone] Dano Han MD Primary Care Provider Amalia Gregory MD Unavailable [phone] Encounter Details Date Type Department Care Team (Late st Contact Info) Description 01/02/2023 Lab Requisition [facility] D[facility] Lab [address] [facility] [place] [address] Parth Crain MD [address] [place] [address] Social History Tobacco Use Types Packs/Day Years Used Date Smoking Tobacco: Never Smokeless Tobacco: Never Alcohol Use Standard Drinks/Week Comments No 0 (1 standard drink = 0.6 oz pur e alcohol) Comments Unknown Sex and Gender Information Value Date Recorded Sex Assigned at Not on file 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 Jar 0. 3 5:48 [...] determined by the Dermatopathology Laboratory at [facility], directed by Dr. Maryam Mendoza. These tests need not be, and therefore are not, approved by the [place] Food and Drug Administration. The tests are used for clinical purposes. Billing Codes Specimen Charges Stain Charges 61474 1 3 5:48 PM CDT DERMATOPATHOLOGY LABORATORY Embedded Images 3 5:48 PM CDT DERMATOPATHOLOGY LABORATORY Pathology/Cytolog y TISSUE SPECIMEN FROM SKIN / Unknown 01/01/2023 01/02/2023 8:56 AM CDT Parth Crain MD LAB - PATHOLOGY/CYTOLOGY ORDERAB LES Final Result DERMATOPATHOLOGY LABORATORY [facility] Department of Dermatology [facility] Medicine [address] [place] [address], [address] [phone] documented in this encounter Visit Diagnoses Not on filedocumented in this encounter Additional Health Concerns Infection Onset Date Last Indicated Resolved Time 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 [address] [place] [address] Street Commissioner Cardiovascular Disease 03/28/[address] [place] [address] [facility] [address] [place] [address] Rheumatology 10/26/20 documented as of this encounter
--- OUTSIDE RECORDS SUMMARY | 2025-06-16 15:44 | XMS_ITS | Encounter Summary ---
Author Organization [facility] Address [address] [place] [address] Care Team Providers Care Digital Content Manager Name Role Phone Darnell Raymond MD Unavailable [phone] Stefani Mulligan MD Unavailable [phone] Dano Han MD Primary Care Provider Amalia Gregory MD Unavailable [phone] Encounter Details Date Type Department Care Team (Late st Contact Info) Description 12/06/2022 Lab Requisition [facility] Care DermPath Lab [address] [place] [address] Parth Crain MD [facility] [place] [address] Social History Tobacco Use Types Packs/Day Years Used Date Smoking Tobacco: Never Smokeless Tobacco: Never Alcohol Use Standard Drinks/Week Comments No 0 (1 standard drink = 0.6 oz pur e alcohol) Comments Unknown Sex and Gender Information Value Date Recorded Sex Assigned at Not on file 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 Jar 0. 3 12:30 PM CDT DERMATOPATHOLOGY [...] characteristic determined by the Dermatopathology Laboratory at [facility], directed by Dr. Maryam Mendoza. These tests need not be, and therefore are not, approved by the [place] Food and Drug Administration. The tests are used for clinical purposes. Billing Codes Specimen Charges Stain Charges 43106 1 3 12:30 PM CDT DERMATOPATHOLOGY LABORATORY Embedded Images 3 12:30 PM CDT DERMATOPATHOLOGY LABORATORY Pathology/Cytolo gy TISSUE SPECIMEN FROM SKIN / Unknown 12/05/2022 3:33 AM CDT 12/06/2022 6:35 AM CDT Parth Crain MD LAB - PATHOLOGY/CYTOLOGY ORDERAB LES Final Result DERMATOPATHOLOGY LABORATORY [facility] Department of Dermatology [address], [address] [phone] documented in this encounter Visit Diagnoses Not on filedocumented in this encounter Additional Health Concerns Infection Onset Date Last Indicated Resolved Time 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
--- OUTSIDE RECORDS SUMMARY | 2025-06-16 15:44 | XMS_ITS | Clinical Summary ---
Author Organization [facility] Address [address] [place] [address] Care Team Providers Care Net Technical Architect Name Role Phone Darnell Raymond MD Unavailable [phone] Stefani Mulligan MD Unavailable [phone] Dano Han MD Primary Care Provider Amalia Gregory MD Unavailable [phone] Source Comments [facility],non-owned Affiliates and Associated Physician Practices is amultiple site organization consisting of ambulatory clinics and hospital sitesin [place], [place], [place] and [place]. This disclosure is being madepursuant to the Care Everywhere program and may not contain all information available regarding this patient. 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 Gender Identity Female 01/16/2021 10:27 AM CDT Sexual Orientation Not on file Last Filed Vital Signs Vital Sign Reading Time Taken Comments Blood Pressure 159/91 10/08/2023 10:15 AM PLATE PRINTER Pulse 76 10/08/2023 10:15 AM PLATE PRINTER Temperature 36.2 C (97.1 F) 07/12/2021 8:47 AM PLATE PRINTER Respiratory Rate 18 03/26/2021 10:24 AM CDT Oxygen Saturation 98% 10/26/2020 11:25 AM CDT Inhaled Oxygen Concentration - - Weight 70.3 kg (155 lb) 10/08/2023 10:15 AM PLATE PRINTER Height 157.5 cm (5' 2) 10/08/2023 10:15 AM PLATE PRINTER Body Mass Index 28.35 10/08/2023 10:15 AM PLATE PRINTER Plan of Treatment Health Maintenance Due Date [...] topic Medical Devices Implanted Type Area Tool Worker Device Identifier Shelf Expiration Date Model / Serial / Lot Cmnt Bone Cblt 40gm Hvisc Strl Implanted:Qty: 1 on 12/15/2017 by Darnell Raymond MD at [facility] Right: Knee [employer] 06/10/2019 [id number] / / [id number] Cmpnt Fem Kn Rt Cr Cmnt Prm Vngrd Intlk Implanted:Qty: 1 on 12/15/2017 by Darnell Raymond MD at [facility] Right: Knee [employer] 09/14/2027 [id number] / / [id number] Tray Tib 71mm Kn Cocr I Beam Implanted:Qty: 1 on 12/15/2017 by Darnell Raymond MD at [facility] Right: Knee [employer] 08/07/2027 [id number] / / [id number] Cmpnt Ptlr 28mm 1 Pg Wire Ascnt Arcm Kn Implanted:Qty: 1 on 12/15/2017 by Darnell Raymond MD at [facility] Right: Knee [employer] 09/01/2022 [id number] / / [id number] Brng [id number] Vngrd Arcm Kn Ant Stab Implanted:Qty: 1 on 12/15/2017 by Darnell Raymond MD at [facility] Right: Knee [employer] 09/04/2022 [id number] / / [id number] Additional Health Concerns Infection Onset Date Last [...] PM 12/18/2017 2:18 PM Care Teams Net Technical Architect Relationship Specialty Start Date End Date Dano Han MD [address] [place] [phone] PCP - General 04/03/20 [place] [address] [facility] [address] [place] [address] Orthopedic Surgery 10/30/17 [place] [address] [place] [address] Work Order Detailer Cardiovascular Disease 03/28/20 [place] [address] [place] [address] Rheumatology 10/26/20
== END 2025-06-15 21:18 | disposition home or self-care (01) ==
PROVIDERS: Emergency Provider Registered Nurse; PCP Nurse Practitioner Family
DX: K56.41 Fecal impaction (principal); I87.2 Venous insufficiency (chronic) (peripheral); I48.91 Unspecified atrial fibrillation; I10 Essential (primary) hypertension; E55.9 Vitamin D deficiency, unspecified; E78.5 Hyperlipidemia, unspecified; J44.9 Chronic obstructive pulmonary disease, unspecified; K21.9 Gastro-esophageal reflux disease without esophagitis; G47.33 Obstructive sleep apnea (adult) (pediatric); M06.9 Rheumatoid arthritis, unspecified; M85.80 Other specified disorders of bone density and structure, unspecified site; Z98.62 Peripheral vascular angioplasty status; Z96.651 Presence of right artificial knee joint; Z86.711 Personal history of pulmonary embolism; Z85.828 Personal history of other malignant neoplasm of skin; Z86.73 Personal history of transient ischemic attack (TIA), and cerebral infarction without residual deficits; Z90.710 Acquired absence of both cervix and uterus; Z79.899 Other long term (current) drug therapy
CPT/HCPCS: 99283

== ENCOUNTER 2025-06-27 11:02 | Inpatient (IN) | payer MEDICARE, SELFPAY ==
--- NOTE | ~2025-06-27 | XR_ITS ---
Examination: XR chest 1V portable Clinical History: concern for aspiration Comparison: 02/16/2025 Technique: Portable AP Findings: Loop recorder. Cardiomegaly. Diffusely increased interstitial markings. Elevated left hemidiaphragm, associated basilar atelectasis. No acute bony abnormality. IMPRESSION: 1. Interstitial pulmonary edema. Reviewed, dictated and finalized at location R. ERCIAL CONSTRUCTION ESTIMATOR
--- NOTE | ~2025-06-27 | CT_ITS ---
EXAM/PROCEDURE: CT abdomen pelvis w con HISTORY: l sided abd pain, constipation, weakness COMPARISON: June 15, 2025 TECHNIQUE: IV contrast enhanced CT of the abdomen and pelvis FINDINGS: The bowel gas pattern is not obstructive with no free air free fluid or pneumatosis seen. Small to moderate amount of stool extends to the cecum; there is less stool in the rectum, although there appears to be at least mild thickening in the anorectal junction and anal verge. Mild wall thickening also may be present in the rectosigmoid junction. No other areas of suspicious wall thickening seen in the large intestine. Liver spleen pancreas adrenal glands and kidneys appear stable. No hydroureteronephrosis. Slightly atypical or thickened appearance of the gallbladder wall is unchanged. No biliary ductal dilatation seen. No AAA. 1.2 cm right internal iliac artery aneurysm unchanged with chronic appearing occlusion distally. Severe atelectatic changes also present in the distal left internal iliac artery. Pelvic inflow and outflow arteries appear moderately diseased but patent. Similar changes involving the celiac axis, and both mesenteric as well as both renal arteries. No acute arterial occlusion seen. No grossly inflamed appendix. Fat-containing inguinal hernias, and (midline ventral hernia unchanged in appearance. No herniated loops of bowel. Lung bases with mild atelectatic or fibrotic changes but stable to the previous exam. Heart size normal. Partially visualized breast implants appear intact. No bulky mesenteric or retroperitoneal lymphadenopathy or masses seen. Diffuse degenerative and osteopenic changes throughout the bones. IMPRESSION: 1. Anorectal changes with acute inflammatory or infectious process not excluded. 2. Other chronic appearing findings. Reviewed, dictated and finalized at location A. PROJECT MANAGER IMPRESSION: 1. Anorectal changes with acute inflammatory or infectious process not excluded . 2. Other chronic appearing findings.
--- NOTE | ~2025-06-27 | XR_ITS ---
EXAM/PROCEDURE: XR barium swallow modified HISTORY: coughing with liquids COMPARISON: None available. TECHNIQUE: Modified barium swallow Fluoroscopy time: 4.4 minutes DAP: 3.121 padilla per square centimeter Number of images: 1 IMPRESSION: Aspiration was observed on thin sequences. See speech therapist's report for complete evaluation. Reviewed, dictated and finalized at location A. R INSPECTOR IMPRESSION: Aspiration was observed on thin sequences. See speech therapist's report for co mplete evaluation.
--- NOTE | ~2025-06-27 | US_ITS ---
US abdomen limited INDICATION: Cirrhosis. Evaluate for ascites. PROCEDURE: Realtime right upper abdominal ultrasound. COMPARISON: Ultrasound dated 05/10/2025 FINDINGS: The pancreas is normal without focal mass or pancreatic ductal dilation. Liver echotexture is increased and heterogeneous with nodular liver surface, compatible with cirrhosis. There is normal directional flow in the portal vein. There is gallbladder sludge and stones. No gallbladder wall thickening. Common bile duct measures 6 mm. No sonographic Gloria's sign. No ascites identified. IMPRESSION: 1: Cirrhosis of the liver. 2: Cholelithiasis. Reviewed, dictated and finalized at location C. CONTROLLED MACHINE STITCHER
[2025-06-27 11:42] VITALS: BP 109/81; PULSE 81; RESP 18; TEMP 36.4; O2SAT 97
[2025-06-27 14:38] VITALS: BP 108/68; PULSE 96; RESP 20; O2SAT 98
--- NOTE | 2025-06-27 14:40 | ED.ABDPAIN ---
HPI - Abdominal Pain General Chief Complaint: Abdominal Pain <Lolis Elizalde PA-C - Last Filed: 06/27/25 14:49> Stated Complaint: abd pain <Lolis Elizalde PA-C - Last Filed: 06/27/25 14:49> Time Seen by Provider: 06/27/25 14:41 <Lolis Elizalde PA-C - Last Filed: 06/27/25 14:49> Focused HPI: Patient is an 84 y/o female who presents to the ED with c/o abdominal pain, weakness. Son at bedside assisted in providing information. Reports patient was seen here in the ED on 06/15 for a fecal impaction. Had improvement after enema in the ED and was discharged home. Son reports patient has been increasingly weak over the past 1 week. Has been complaining of nausea, increased abdominal pain/pressure/bloating, particularly on the left side. Has had decreased p.o. intake, has only been drinking a small amount of protein shake per day. Is now requiring increased assistance with simple activities due to weakness. Did have several episodes of diarrhea on Friday, has not had a bowel movement since. Denies fevers. GENERAL: Elderly, frail, and in no acute distress. HEAD: Normocephalic, atraumatic. CHEST: Clear to auscultation. ?No respiratory distress. HEART: Regular rate and rhythm.? ABD: Slightly distended, but soft. Tenderness throughout left-sided abdomen. NEURO: ?Alert. Patient screened in triage and initial orders placed.? ?Additional care and disposition to be based upon?diagnostic testing and treatment. <Lolis Elizalde PA-C - Last Filed: 06/27/25 14:49> Source: patient <SUKUMAR Monahan Last Filed: 06/27/25 14:49> Mode of arrival: ambulatory <Lolis Elizalde PA-C - Last Filed: 06/27/25 14:49> Limitations: no limitations <SUKUMAR Monahan Last Filed: 06/27/25 14:49> History of Present Illness HPI narrative: As above <David Denis MD - Last Filed: 06/27/25 22:42> Related Data Home Medications: Home Medications ?Medication ?Instructions ?Recorded ?Confirmed ?Last Taken ?Type diphenhydramine 25 1 tablet PO HS 10/24/21 06/27/25 10/26/23 History mg-acetaminophen 500 mg tablet (Tylenol PM Extra Strength) prednisone 2.5 mg tablet 5 mg PO BID 03/05/23 06/27/25 02/14/25 History acetaminophen 500 mg tablet 500 mg PO TID PRN Pain 10/01/23 06/27/25 10/26/23 History (Tylenol Extra Strength) jlgdnqcjrpcr-auigkgey-ikrprs tablet 1 tablet PO DAILY 10/20/23 06/27/25 02/14/25 History omeprazole 40 mg capsule,delayed 40 mg PO DAILY 10/14/24 06/27/25 02/14/25 History release hydroxychloroquine 200 mg tablet 400 mg PO DAILY 11/16/24 06/27/25 02/14/25 History Held on 06/14/25. Instructions: .Provider Order <Lolis Elizalde PA-C - Last Filed: 06/27/25 14:49> Allergies/Adverse Reactions: Allergies Allergy/AdvReac Type Severity Reaction Status Date / Time No Known Allergies Allergy Verified 06/27/25 11:50 <Lolis Elizalde PA-C - Last Filed: 06/27/25 14:49> Review of Systems Review of Systems: All systems reviewed & are unremarkable except as noted in HPI and below <David Denis MD - Last Filed: 06/27/25 22:42> [facility] Past Medical History Medical History: Medical History Depression Fecal incontinence GERD (gastroesophageal reflux disease) History of esophageal stricture Esophageal dysphagia History of TIA (transient ischemic attack) Dyslipidemia Oropharyngeal dysphagia History of CVA (cerebrovascular accident) Osteopenia Paralysis of right vocal cord Chronic low back pain Vitamin D deficiency 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 Chronic venous insufficiency of lower extremity Hemorrhoid Anticoagulant long-term use Hypokalemia Atrial fibrillation Obstructive sleep apnea (~10/2020) Polysomnogram suggesting CPAP pressure of 13 with 3 L bleed in O2 Pulmonary embolism History of cerebral hemorrhage History of stroke History of skin cancer Hyperlipidemia Esophageal stricture (~10/2021) History of shingles History of blood clots 2015 - RUE COPD (chronic obstructive pulmonary disease) With CT demonstrating emphysema with mild bronchiectasis GERD without esophagitis Essential (primary) hypertension Rheumatoid arthritis Follows with Rheumatology <Lolis Elizalde PA-C - Last Filed: 06/27/25 14:49> Surgical History Surgical History: Surgical History History of hemorrhoidectomy History of esophageal dilatation 10/2023, 10/2021, 04/2021 History of hemorrhoidectomy 05/08/2021 History of esophagogastroduodenoscopy (EGD) (~05/2020) History of umbilical hernia repair (10/2020) H/O angioplasty (~2018) H/O brain surgery (~2014) 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 History of knee replacement Right H/O shoulder surgery (~1964) H/O Spinal surgery (~1968) spinal tumor removed H/O: hysterectomy (~1974) History of appendectomy (~194) H/O abdominoplasty (~2017) <Lolis Elizalde PA-C - Last Filed: 06/27/25 14:49> Family History Family History: Family History Father Hyperlipidemia Family history of Alzheimer's disease Hypertension Mother Hypertension Other Diabetes mellitus Heart disease Nervous disorder Hypertension Cerebrovascular accident Other Family history of arthritis Family history of thyroid disease <Lolis Elizalde PA-C - Last Filed: 06/27/25 14:49> Social History Social History: Social History Social History: She has been 3 times. Her 1st after 40 years of marriage. Her 2nd after 5 years . She has been to her current has been for 12 years. She has 3 children who are healthy. She is a lifelong nonsmoker and does not drink alcohol. Smoking status: Never smoker Second hand tobacco smoke exposure: No Alcohol intake: never Substance use: never Substance use type: does not use Do You Feel Safe in your Home?: Yes Lack of Transportation: No Lack of Food: Never True Current Housing: I Have Housing Concerned About Future Housing: No Difficulty Paying Gas/Electric Bills: No Difficulty Paying for Meds: No Currently Unemployed: No Education: Bachelor's Degree Difficulty w/ Childcare or Family Care: No Living arrangements: with family Occupation/Education: retired Gender identity (if verbalized by the patient): Female Sexual Orientation (if Verbalized by the Patient): Straight or Heterosexual Spiritual care concerns: No Agree to blood products: Yes <Lolis Elizalde PA-C - Last Filed: 06/27/25 14:49> Exam Narrative: General appearance: Well-developed, well-nourished Skin: Normal color Head: Normocephalic, nontraumatic Eyes: Clear conjunctiva ENT: Oropharynx normal, ears normal, nose normal Neck: Supple, nontender Chest and respiratory: Airway patent, no respiratory distress, no accessory muscle use Heart: Regular rate/rhythm Abdomen: Soft, slightly distended, slightly diffusely tender, no organomegaly, quiet bowel sounds Vascular: Normal peripheral pulses, normal capillary refill. 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 is normal as tested, no gross motor deficit <David Denis MD - Last Filed: 06/27/25 22:42> Course Vital Signs Vital signs: Vital Signs Temperature 36.4 C 06/27/25 11:42 Pulse Rate 81 06/27/25 11:42 Respiratory Rate 18 06/27/25 11:42 Blood Pressure 109/81 06/27/25 11:42 Pulse Oximetry 97 06/27/25 11:42 Oxygen Delivery Room Air 06/27/25 11:42 Temperature 36.1 C L 06/27/25 21:03 Pulse Rate 71 06/27/25 21:03 Respiratory Rate 20 06/27/25 21:03 Blood Pressure 125/69 06/27/25 21:03 Pulse Oximetry 100 06/27/25 21:03 Oxygen Delivery Room Air 06/27/25 20:47 <Lolis Elizalde PA-C - Last Filed: 06/27/25 14:49> Vital Signs Temperature 36.4 C 06/27/25 11:42 Pulse Rate 81 06/27/25 11:42 Respiratory Rate 18 06/27/25 11:42 Blood Pressure 109/81 06/27/25 11:42 Pulse Oximetry 97 06/27/25 11:42 Oxygen Delivery Room Air 06/27/25 11:42 Temperature 36.1 C L 06/27/25 21:03 Pulse Rate 71 06/27/25 21:03 Respiratory Rate 20 06/27/25 21:03 Blood Pressure 125/69 06/27/25 21:03 Pulse Oximetry 100 06/27/25 21:03 Oxygen Delivery Room Air 06/27/25 20:47 <David Denis MD - Last Filed: 06/27/25 22:42> MDM - Abdominal Pain MDM Narrative Medical decision making narrative: MSE by AGNES in triage <Lolis Elizalde PA-C - Last Filed: 06/27/25 14:49> MSE by AGNES in triage Patient came with abdominal pain Vital signs are stable Physical examination showing diffuse mild tenderness Differential diagnosis constipation, diverticulitis, cholecystitis, appendicitis, small-bowel obstruction, urinary tract infection, electrolyte imbalance, dehydration Blood workup today includes CBC, CMP, lipase, lactic acid showed BUN 71, creatinine 1.17 otherwise within normal limit Urinalysis positive for infection CT abdomen and pelvis with IV contrast showed 1. Anorectal changes with acute inflammatory or infectious process not excluded. 2. Other chronic appearing findings Diagnosis urinary tract infection, VIDHYA Admit to hospitalist <David Denis MD - Last Filed: 06/27/25 22:42> Lab Data Result diagrams: 06/27/25 15:09 06/27/25 15:09 <Lolis Elizalde PA-C - Last Filed: 06/27/25 14:49> Labs: Lab Results 06/27/25 06/27/25 Range/Units 15:09 15:16 WBC 8.1 (4.5-10.0) K/mm3 RBC 4.66 (4.2-5.4) M/mm3 Hgb 13.4 (12.0-15.0) g/dL Hct 42.8 (37.0-47.0) % MCV 91.8 (80-100) fl MCH 28.8 (26-34) pg MCHC 31.3 L (32-36) g/dl RDW 15.9 H (11.5-14.5) % Plt Count 216 (150-375) k/mm3 MPV 9.8 (7.4-10.4) fl Immature Gran % (Auto) 0.2 (0-0.5) % Neut % (Auto) 83.4 H (45.5-73.1) % Lymph % (Auto) 10.9 L (18.3-44.2) % Pershing % (Auto) 5.1 (2.6-8.5) % Eos % (Auto) 0.0 (0-4.4) % Baso % (Auto) 0.4 (0.2-1.2) % Lymph # (Auto) 0.88 L (0.9-3.2) K/mm3 Pershing # (Auto) 0.4 (0.1-0.6) K/mm3 Eos # (Auto) 0.0 (0-0.3) K/mm3 Baso # (Auto) 0.0 (0.0-0.1) K/mm3 Abs Immat Gran (auto) 0.02 (0.00-0.031) K/mm3 Absolute Neuts (auto) 6.7 (1.3-6.7) K/mm3 Absolute Nucleated RBC 0.000 (0.0-0.012) K/mm3 Nucleated RBC % 0.0 (0.0-0.2) % Sodium 142 (137-145) mmol/L Potassium 4.2 (3.4-5.0) mmol/L Chloride 109 H (98-107) mmol/L Carbon Dioxide 23 (22-30) mmol/L Anion Gap 10 (4-12) mmol/L BUN 71 H D (7-17) mg/dL Creatinine 1.17 H (0.7-1.0) mg/dL Estim Creat Clear Calc 26 ml/min Estimated GFR 44 L (59 - ) Glucose 111 H (65-110) mg/dL Lactic Acid 1.9 (0.7-2.0) mmol/L Calcium 10.2 (8.4-10.2) mg/dL Total Bilirubin 1.1 (0.2-1.3) mg/dL AST 65 H (14-36) U/L ALT 42 H (6-35) U/L Alkaline Phosphatase 321 H (38-126) U/L Total Protein 6.5 (6.3-8.2) g/dL Albumin 3.6 (3.5-5.1) g/dL Lipase 166 (23-300) U/L Urine Color Dark yellow (Yellow) Urine Appearance Clear (Clear) Urine pH 5.0 (5.0-9.0) Ur Specific Willard 1.022 (1.001-1.035) Urine Protein 1+ H (Negative) mg/dL Urine Glucose (UA) Negative (Negative) mg/dL Urine Ketones Trace H (Negative) mg/dL Ur Blood (Man) Negative (Negative) Urine Nitrate Positive H (Negative) Urine Bilirubin 1+ H (Negative) Urine Urobilinogen 1.0 (<2.0) mg/dL Add Ur Microanalysis Reviewed Leukocyte Esterase Rfl 2+ H (Negative) KHADIJAH/UL Urine RBC 6-10 H (0-2) /hpf Urine WBC 21-50 H (0-3) /hpf Ur Squamous Epith Cells Occasional (Few) /hpf Urine Bacteria 1+ H /hpf Urine Casts 3-5 <Lolis Elizalde PA-C - Last Filed: 06/27/25 14:49> Lab Results 06/27/25 06/27/25 Range/Units 15:09 15:16 WBC 8.1 (4.5-10.0) K/mm3 RBC 4.66 (4.2-5.4) M/mm3 Hgb 13.4 (12.0-15.0) g/dL Hct 42.8 (37.0-47.0) % MCV 91.8 (80-100) fl MCH 28.8 (26-34) pg MCHC 31.3 L (32-36) g/dl RDW 15.9 H (11.5-14.5) % Plt Count 216 (150-375) k/mm3 MPV 9.8 (7.4-10.4) fl Immature Gran % (Auto) 0.2 (0-0.5) % Neut % (Auto) 83.4 H (45.5-73.1) % Lymph % (Auto) 10.9 L (18.3-44.2) % Pershing % (Auto) 5.1 (2.6-8.5) % Eos % (Auto) 0.0 (0-4.4) % Baso % (Auto) 0.4 (0.2-1.2) % Lymph # (Auto) 0.88 L (0.9-3.2) K/mm3 Pershing # (Auto) 0.4 (0.1-0.6) K/mm3 Eos # (Auto) 0.0 (0-0.3) K/mm3 Baso # (Auto) 0.0 (0.0-0.1) K/mm3 Abs Immat Gran (auto) 0.02 (0.00-0.031) K/mm3 Absolute Neuts (auto) 6.7 (1.3-6.7) K/mm3 Absolute Nucleated RBC 0.000 (0.0-0.012) K/mm3 Nucleated RBC % 0.0 (0.0-0.2) % Sodium 142 (137-145) mmol/L Potassium 4.2 (3.4-5.0) mmol/L Chloride 109 H (98-107) mmol/L Carbon Dioxide 23 (22-30) mmol/L Anion Gap 10 (4-12) mmol/L BUN 71 H D (7-17) mg/dL Creatinine 1.17 H (0.7-1.0) mg/dL Estim Creat Clear Calc 26 ml/min Estimated GFR 44 L (59 - ) Glucose 111 H (65-110) mg/dL Lactic Acid 1.9 (0.7-2.0) mmol/L Calcium 10.2 (8.4-10.2) mg/dL Total Bilirubin 1.1 (0.2-1.3) mg/dL AST 65 H (14-36) U/L ALT 42 H (6-35) U/L Alkaline Phosphatase 321 H (38-126) U/L Total Protein 6.5 (6.3-8.2) g/dL Albumin 3.6 (3.5-5.1) g/dL Lipase 166 (23-300) U/L Urine Color Dark yellow (Yellow) Urine Appearance Clear (Clear) Urine pH 5.0 (5.0-9.0) Ur Specific Willard 1.022 (1.001-1.035) Urine Protein 1+ H (Negative) mg/dL Urine Glucose (UA) Negative (Negative) mg/dL Urine Ketones Trace H (Negative) mg/dL Ur Blood (Man) Negative (Negative) Urine Nitrate Positive H (Negative) Urine Bilirubin 1+ H (Negative) Urine Urobilinogen 1.0 (<2.0) mg/dL Add Ur Microanalysis Reviewed Leukocyte Esterase Rfl 2+ H (Negative) KHADIJAH/UL Urine RBC 6-10 H (0-2) /hpf Urine WBC 21-50 H (0-3) /hpf Ur Squamous Epith Cells Occasional (Few) /hpf Urine Bacteria 1+ H /hpf Urine Casts 3-5 <David Denis MD - Last Filed: 06/27/25 22:42> Imaging Data Radiologist's impression: ITS Impressions Abdomen/Pelvis CT 06/27/25 16:10 IMPRESSION: 1. Anorectal changes with acute inflammatory or infectious process not excluded. 2. Other chronic appearing findings. <Lolis Elizalde PA-C - Last Filed: 06/27/25 14:49> ITS Impressions Abdomen/Pelvis CT 06/27/25 16:10 IMPRESSION: 1. Anorectal changes with acute inflammatory or infectious process not excluded. 2. Other chronic appearing findings. <David Denis MD - Last Filed: 06/27/25 22:42> Discharge Plan Discharge Clinical Impression: Urinary tract infection, VIDHYA (acute kidney injury) <Lolis Elizalde PA-C - Last Filed: 06/27/25 14:49> Patient Disposition: Still a Patient <Lolis Elizalde PA-C - Last Filed: 06/27/25 14:49> Condition: Stable <Lolis Elizalde PA-C - Last Filed: 06/27/25 14:49>
[2025-06-27] MEDS: SODIUM CHLORIDE 0.9% IV 1,000 ML 250 ML IV CONT (15:16)
[2025-06-27 15:18] LABS: Hematocrit 42.8 % (37.0-47.0); Hemoglobin 13.4 g/dL (12.0-15.0); Immature Granulocyte Percent A 0.2 % (0-0.5); Lymphocytes Absolute Auto 0.88 K/mm3 (0.9-3.2); Mean Corpuscular HGB Conc 31.3 g/dl (32-36); Mean Corpuscular Hemoglobin 28.8 pg (26-34); Mean Corpuscular Volume 91.8 fl (80-100); Nucleated Red Blood Cells Absolute Auto 0.000 K/mm3 (0.0-0.012); Nucleated Red Blood Cells Perc 0.0 % (0.0-0.2); Platelet Count Result 216 k/mm3 (150-375); Red Blood Count 4.66 M/mm3 (4.2-5.4); White Blood Count 8.1 K/mm3 (4.5-10.0)
[2025-06-27 15:26] LABS: Alanine Aminotransferase 42 U/L (6-35); Albumin Level 3.6 g/dL (3.5-5.1); Alkaline Phosphatase 321 U/L (38-126); Anion Gap 10 mmol/L (4-12); Aspartate Amino Transferase 65 U/L (14-36); Bilirubin,Total 1.1 mg/dL (0.2-1.3); Blood Urea Nitrogen 71 mg/dL (7-17); Calcium 10.2 mg/dL (8.4-10.2); Carbon Dioxide 23 mmol/L (22-30); Chloride 109 mmol/L (98-107); Estimated CRCL calculation 26 ml/min; Estimated Glomerular Filt Rate 44; Glucose 111 mg/dL (65-110); Lipase 166 U/L (23-300); Potassium 4.2 mmol/L (3.4-5.0); Sodium 142 mmol/L (137-145); Total Protein 6.5 g/dL (6.3-8.2)
[2025-06-27 15:39] LABS: Add Urine Microscopic? YES; Appearance Urine Clear (Clear); Glucose Urine UA Negative (Negative); Leukocyte Esterase Ur 2+ LEU/UL (Negative); Need Manual Microscopic Reviewed; Nitrate Urine Positive (Negative); Specific Grav Ur 1.022 (1.001-1.035)
[2025-06-27 16:00] VITALS: BP 111/70; PULSE 74; RESP 16; O2SAT 96
[2025-06-27 17:00] VITALS: BP 136/90; PULSE 77; RESP 16; O2SAT 96
[2025-06-27] MEDS: PIPERACILLIN/TAZOBACTAM SOD 2.25 GM in SODIUM CHLORIDE 0.9% IV 50 ML 100 ML IVPB ×2 (17:27→22:50)
--- NOTE | 2025-06-27 17:41 | WPCEDHO ---
ED Hand Off Checklist All vitals saved:YES IV Site documented:YES All med administrations documented:YES Triage Note Triage Note Pt to ED with who states 06/27/25 15:20 She is here because she needs to be admitted, her doctor called. . Pt has been co abd pain since 06/21 that has been worsening. states pt has only been able to tolerate sips of protein shakes not meals. Reports she had diarrhea Friday but states that has resolved. reports abd pain is worse on the left side. Pt A&Ox3 AGREE WITH TRIAGE NOTE. Allergies No Known Allergies Allergy (Verified 06/27/25 11:50) Family History (Last Reviewed 06/27/25 @ 16:43 by David Denis MD) Father Hyperlipidemia Family history of Alzheimer's disease Hypertension Mother Hypertension Other Diabetes mellitus Heart disease Nervous disorder Hypertension Cerebrovascular accident Other Family history of arthritis Family history of thyroid disease Active Medications including assessments/comments Sodium Chloride (Normal Saline Iv) 1,000 mls @ 250 mls/hr IV CONT .Q4H STA Stop: 06/27/25 18:54 Last Admin: 06/27/25 15:16 Dose: 250 mls/hr Documented By: AZG Infusion/Titration Document 06/27/25 15:16 AZG (Rec: 06/27/25 15:17 AZG [id number]) Intake IV Site Peripheral Access Right Antecubital Container Volume 1,000 Waste Amount 0 Dosing Infusion Rate 250 Cumulative Dose Not Applicable Increase/Decrease Started Elapsed Time Elapsed Time ( 0m minutes) Piperacillin Sod/Tazobactam (Sod 2.25 gm/ Sodium Chloride) 50 mls @ 100 mls/hr IVPB Q6H ILA Last Admin: 06/27/25 17:27 Dose: 100 mls/hr Documented By: CFG Infusion/Titration Document 06/27/25 17:27 CFG (Rec: 06/27/25 17:27 CFG [id number]) Intake IV Site Peripheral Access Right Antecubital Container Volume 50 Waste Amount 0 Dosing Infusion Rate 100 Increase/Decrease Started Elapsed Time Elapsed Time ( 0m minutes) Interventions/Assessments IV / Saline Lock, Insert Start: 06/27/25 14:48 Freq: STAT Status: Active Protocol: Document 06/27/25 15:08 AZG (Rec: 06/27/25 15:09 AZG [id number]) IV Assessment Peripheral Access Right Antecubital IV Catheter Access Initiated IV Insertion Date 06/27/25 IV Insertion Time 15:08 Catheter Gauge 18 IV Site Assessment WNL IV Care and WNL Maintenance PA: Gastrointestinal Assessment Start: 06/27/25 11:03 Freq: Status: Complete Protocol: Document 06/27/25 15:20 CFG (Rec: 06/27/25 15:54 CFG [id number]) GI Assessment Gastrointestinal Bloating,Diarrhea,Pain Symptoms Description Tender All Quadrants Bowel Sounds Active Pattern Diarrhea Date of Last Bowel 06/25/25 Movement Nausea/Vomiting Assessment Nausea Frequency Intermittent Emesis Frequency None Last Vital Signs Temperature 97.6 F 06/27/25 11:42 Pulse Rate 77 06/27/25 17:00 Respiratory Rate 16 06/27/25 17:00 Pulse Oximetry 96 06/27/25 17:00 Blood Pressure 136/90 06/27/25 17:00 Blood Pressure Mean 105 06/27/25 17:00 Blood Pressure Position Sitting 06/27/25 17:00 Oxygen Delivery Room Air 06/27/25 11:42 Weight 62.3 kg 06/27/25 15:20 Last Result - Abnormals Only MCHC 31.3 g/dl (32-36) L 06/27/25 15:09 RDW 15.9 % (11.5-14.5) H 06/27/25 15:09 Neut % (Auto) 83.4 % (45.5-73.1) H 06/27/25 15:09 Lymph % (Auto) 10.9 % (18.3-44.2) L 06/27/25 15:09 Lymph # (Auto) 0.88 K/mm3 (0.9-3.2) L 06/27/25 15:09 Chloride 109 mmol/L (98-107) H 06/27/25 15:09 BUN 71 mg/dL (7-17) H D 06/27/25 15:09 Creatinine 1.17 mg/dL (0.7-1.0) H 06/27/25 15:09 Estimated GFR 44 (59-) L 06/27/25 15:09 Glucose 111 mg/dL (65-110) H 06/27/25 15:09 AST 65 U/L (14-36) H 06/27/25 15:09 ALT 42 U/L (6-35) H 06/27/25 15:09 Alkaline Phosphatase 321 U/L (38-126) H 06/27/25 15:09 Urine Protein 1+ mg/dL (Negative) H 06/27/25 15:16 Urine Ketones Trace mg/dL (Negative) H 06/27/25 15:16 Urine Nitrate Positive (Negative) H 06/27/25 15:16 Urine Bilirubin 1+ (Negative) H 06/27/25 15:16 Leukocyte Esterase Rfl 2+ KHADIJAH/UL (Negative) H 06/27/25 15:16 Urine RBC 6-10 /hpf (0-2) H 06/27/25 15:16 Urine WBC 21-50 /hpf (0-3) H 06/27/25 15:16 Urine Bacteria 1+ /hpf H 06/27/25 15:16 Most Recent Suicide Severity Rating Suicide Severity Rating NO RISK INDICATED 06/27/25 15:20
[2025-06-27] MEDS: ONDANSETRON INJ 4 MG/2 ML VIAL IV PUSH (17:57)
[2025-06-27] MEDS: MORPHINE SULFATE (*CRX) 4 MG/ML INJ 2 MG IV PUSH (17:58)
[2025-06-27 18:17] VITALS: BMI 24.1
--- NOTE | 2025-06-27 18:17 | ADMGEN ---
This patient, Rosa Veronica, was admitted to 2 Medical Room 259-01. Patient/family oriented to hospital policies and general routines including ID bracelet, bed and alarms, visiting hours, pain management, procedures, bathroom and other care routines, personal items, smoking policy, room service/diet, and visiting hours. Information on how to activate the Rapid Response Team has been discussed. Patient/Family are encouraged to report perceived risks to care and to ask questions if they do not understand what they are told or what they should do.
[2025-06-27] MEDS: SODIUM CHLORIDE 0.9% IV 1,000 ML 100 ML IV CONT (18:21)
--- NOTE | 2025-06-27 18:32 | PM.IMHP ---
H&P: HPI History of Present Illness Date/Time: 06/27/25 18:32 Chief Complaint: Abdominal pain Narrative: 84-year-old female with a past medical history of HTN, GERD, COPD, AFib on Eliquis, depression, esophageal stricture, CVA, hemorrhoids, PE, RA, MALCOLM presents to the ED from home on 06/27/2025 with abdominal pain and weakness. Family provided information in the ED as patient is confused at times. Patient was here in this ED on 06/15 for a fecal impaction. Results after enema and patient was discharged home. Patient now over the past week has been complaining of nausea and increased abdominal pain, mostly on the left side. She has also had decreased intake and has only been taking and small amounts of protein shake. Family further states that the patient did have several episodes of diarrhea 2 days prior to arrival but has not had a bowel movement since. Patient has no further complaints aside from her abdominal pain. Family denies fever, shortness of breath, cough. Initial vital signs 109/81, 81 heart rate, respirations 18, afebrile and 97 % on room air Labs revealed VIDHYA with creatinine 1.17, AST 65, ALT 42, alk-phos 321. UA with 1+ protein, trace ketones, positive nitrate, 1+ bilirubin, 2+ leukocyte esterase, 6-10 RBC, 21-50 WBC, 1+ bacteria Abdomen pelvis CT with contrast reveals chronic right internal iliac artery aneurysm, small to moderate amount of stool extends to the cecum with less stool in the rectum, anal rectal changes with acute inflammatory or infectious process not excluded. 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 Chronic venous insufficiency of lower extremity Hemorrhoid Anticoagulant long-term use Hypokalemia Atrial fibrillation Obstructive sleep apnea (~10/2020) Polysomnogram suggesting CPAP pressure of 13 with 3 L bleed in O2 Pulmonary embolism History of cerebral hemorrhage History of stroke History of skin cancer Hyperlipidemia Esophageal stricture (~10/2021) History of shingles History of blood clots 2015 - RUE COPD (chronic obstructive pulmonary disease) With CT demonstrating emphysema with mild bronchiectasis GERD without esophagitis Essential (primary) hypertension Rheumatoid arthritis Follows with Rheumatology Surgical History Surgical History History of hemorrhoidectomy History of esophageal dilatation 10/2023, 10/2021, 04/2021 History of hemorrhoidectomy 05/08/2021 History of esophagogastroduodenoscopy (EGD) (~05/2020) History of umbilical hernia repair (10/2020) H/O angioplasty (~2018) H/O brain surgery (~2014) 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 History of knee replacement Right H/O shoulder surgery (~1964) H/O Spinal surgery (~1968) spinal tumor removed H/O: hysterectomy (~1974) History of appendectomy (~1948) H/O abdominoplasty (~2017) Family History Family History Father Hyperlipidemia Family history of Alzheimer's disease Hypertension Mother Hypertension Other Diabetes mellitus Heart disease Nervous disorder Hypertension Cerebrovascular accident Other Family history of arthritis Family history of thyroid disease Social History Social History Social History: She has been 3 times. Her 1st after 40 years of marriage. Her 2nd after 5 years . She has been to her current has been for 12 years. She has 3 children who are healthy. She is a lifelong nonsmoker and does not drink alcohol. Smoking status: Never smoker Second hand tobacco smoke exposure: No Alcohol intake: never Substance use: never Substance use type: does not use Do You Feel Safe in your Home?: Yes Lack of Transportation: No Lack of Food: Never True Current Housing: I Have Housing Concerned About Future Housing: No Difficulty Paying Gas/Electric Bills: No Difficulty Paying for Meds: No Currently Unemployed: No Education: Bachelor's Degree Difficulty w/ Childcare or Family Care: No Living arrangements: with family Occupation/Education: retired Gender identity (if verbalized by the patient): Female Sexual Orientation (if Verbalized by the Patient): Straight or Heterosexual Spiritual care concerns: No Agree to blood products: Yes Meds Home Medications and Allergies Home Medications ?Medication ?Instructions ?Recorded ?Confirmed ?Type diphenhydramine 25 1 tablet PO HS 10/24/21 06/27/25 History mg-acetaminophen 500 mg tablet (Tylenol PM Extra Strength) prednisone 2.5 mg tablet 5 mg PO BID 03/05/23 06/27/25 History acetaminophen 500 mg tablet 500 mg PO TID PRN Pain 10/01/23 06/27/25 History (Tylenol Extra Strength) taadosgdyfrb-usrwizku-iztldq tablet 1 tablet PO DAILY 10/20/23 06/27/25 History omeprazole 40 mg capsule,delayed 40 mg PO DAILY 10/14/24 06/27/25 History release hydroxychloroquine 200 mg tablet 400 mg PO DAILY 11/16/24 06/27/25 History Held on 06/14/25. Instructions: .Provider Order tramadol 50 mg tablet 50 mg PO TID PRN Pain #10 tabs 02/26/25 06/27/25 Rx atorvastatin 40 mg tablet 40 mg PO QHS #100 tabs 03/24/25 06/27/25 Rx lisinopril 40 mg tablet 40 mg PO DAILY #90 tabs 04/06/25 06/27/25 Rx metoprolol succinate 25 mg 25 mg PO DAILY #100 tabs 04/06/25 06/27/25 Rx tablet,extended release 24 hr hydrocortisone 1 % topical cream 1 applic topical QID PRN 04/07/25 06/27/25 Rx (Preparation H Hydrocortisone) hemorrhoids #28.4 grams duloxetine 60 mg capsule,delayed 60 mg PO DAILY #90 caps 04/14/25 06/27/25 Rx release polyethylene glycol 3350 17 17 g PO BID #510 grams 06/15/25 06/27/25 Rx gram/dose oral powder (Miralax) Allergies Allergy/AdvReac Type Severity Reaction Status Date / Time No Known Allergies Allergy Verified 06/27/25 11:50 Vital Signs Vital Signs - 24 hr 06/27/25 11:42 06/27/25 14:38 06/27/25 16:00 Temperature 97.6 F Pulse Rate 81 96 74 Respiratory Rate 18 20 16 Blood Pressure 109/81 108/68 111/70 Pulse Oximetry 97 98 96 Oxygen Delivery Room Air 06/27/25 17:00 Temperature Pulse Rate 77 Respiratory Rate 16 Blood Pressure 136/90 Pulse Oximetry 96 Oxygen Delivery Exam Narrative: GENERAL: non-toxic appearing, in no acute distress. HEAD: Normocephalic, atraumatic. EYES: PERRLA. Conjunctivae clear. NOSE: Normal no drainage. THROAT: Pharynx clear, no exudate. NECK: Trachea midline. No adenopathy, no masses. RESPIRATORY: Airway patent, respirations nonlabored. CTA. CARDIOVASCULAR: Regular rate and rhythm BREASTS: Defer GASTROINTESTINAL: Abdomen is soft and tender on the left side. No organomegaly. Bowel sounds decreased in all quadrants. External hemorrhoids GENITOURINARY: Defer MUSCULOSKELETAL: Moves all extremities. No gross deformities. Generalized weakness SKIN: Warm, dry, normal color. NEURO: A&O X 3. Speech clear PSYCHIATRIC: Normal interaction H&P: Results Labs Labs: Short CBC 06/27/25 Range/Units 15:09 WBC 8.1 (4.5-10.0) K/mm3 Hgb 13.4 (12.0-15.0) g/dL Hct 42.8 (37.0-47.0) % Plt Count 216 (150-375) k/mm3 BMP 06/27/25 15:09 Sodium 142 Potassium 4.2 Chloride 109 H Carbon Dioxide 23 BUN 71 H D Creatinine 1.17 H Glucose 111 H Calcium 10.2 Liver Function 06/27/25 Range/Units 15:09 Total Bilirubin 1.1 (0.2-1.3) mg/dL AST 65 H (14-36) U/L ALT 42 H (6-35) U/L Alkaline Phosphatase 321 H (38-126) U/L Albumin 3.6 (3.5-5.1) g/dL Urine 06/27/25 Range/Units 15:16 Urine Color Dark yellow (Yellow) Urine Appearance Clear (Clear) Urine pH 5.0 (5.0-9.0) Ur Specific [place] 1.022 (1.001-1.035) Urine Protein 1+ H (Negative) mg/dL Urine Glucose (UA) Negative (Negative) mg/dL Assessment and Plan Assessment and plan (1) Constipation: Qualifiers: Constipation type: unspecified constipation type Qualified Code(s): K59.00 - Constipation, unspecified Code(s): K59.00 - Constipation, unspecified Status: Acute Assessment and Plan: Patient presents with abdominal pain ongoing for 1 week. Patient recently had a fecal impaction on 06/15 treated with an enema. Decreased p.o. intake over the past week. Abdomen pelvis CT with contrast reveals chronic right internal iliac artery aneurysm, small to moderate amount of stool extends to the cecum with less stool in the rectum, anal rectal changes with acute inflammatory or infectious process not excluded. -soapsuds enema x1 -MiraLax b.i.d. (2) VIDHYA (acute kidney injury): Code(s): N17.9 - Acute kidney failure, unspecified Status: Acute Assessment and Plan: Creatinine 1.7 on admission. Patient has had decreased p.o. intake recently. Creatinine on 06/15 was 0.7. -NS at 100 started on 06/27 -trend renal function (3) Hemorrhoids: Qualifiers: Hemorrhoid type: unspecified Qualified Code(s): K64.9 - Unspecified hemorrhoids Code(s): K64.9 - Unspecified hemorrhoids Status: Chronic Assessment and Plan: External hemorrhoids noted on exam. -continue topical hydrocortisone (4) Urinary tract infection: Qualifiers: Urinary tract infection type: acute cystitis Hematuria presence: without hematuria Qualified Code(s): N30.00 - Acute cystitis without hematuria Code(s): N39.0 - Urinary tract infection, site not specified Status: Acute Assessment and Plan: Patient does not complain of UTI symptoms. - UA with 1+ protein, trace ketones, positive nitrate, 1+ bilirubin, 2+ leukocyte esterase, 6-10 RBC, 21-50 WBC, 1+ bacteria - UC pending - previous micro reviewed - started on Zosyn, to cover both GI inflammation and UTI, on 06/27 (5) Essential (primary) hypertension: Code(s): I10 - Essential (primary) hypertension Status: Chronic Assessment and Plan: Continue lisinopril, metoprolol (6) Dyslipidemia: Code(s): E78.5 - Hyperlipidemia, unspecified Status: Chronic Assessment and Plan: Continue atorvastatin (7) Type 2 diabetes mellitus: Code(s): E11.9 - Type 2 diabetes mellitus without complications Status: Chronic Assessment and Plan: - hypoglycemia protocol - POC blood glucose ACHS - home medication: None - correct regimen ordered: Low-dose sliding scale - A1C 6.2 on 04/07/2025 Plan Diet: Heart healthy GI prophylaxis: Pantoprazole DVT prophylaxis: SCDs and heparin subQ lines/drains: PIV Fluids: NS at 100 started on 06/27 Code status: Full Quality VTE Prophylaxis VTE prophylaxis: mechanical ordered Hospitalist MIPS Advance Care Plan I have confirmed that the patient's Advanced Care Plan is present, code status is documented, or surrogate decision maker is listed in patient medical record.: Yes Medication Reconciliation I have utilized all available resources to obtain, update and review the patients current medications (includes all prescriptions, OTC, herbals, cannabis, and nutritional supplements).: Yes
[2025-06-27 18:48] VITALS: BP 141/65; PULSE 73; RESP 16; TEMP 36.2; O2SAT 99
[2025-06-27 21:03] VITALS: BP 125/69; PULSE 71; RESP 20; TEMP 36.1; O2SAT 100
[2025-06-28 04:15] VITALS: BP 142/68; PULSE 87; RESP 20; TEMP 36.9; O2SAT 97
[2025-06-28] MEDS: PIPERACILLIN/TAZOBACTAM SOD 2.25 GM in SODIUM CHLORIDE 0.9% IV 50 ML 100 ML IVPB ×4 (04:27→22:17)
[2025-06-28 04:49] LABS: Hematocrit 39.6 % (37.0-47.0); Hemoglobin 12.3 g/dL (12.0-15.0); Immature Granulocyte Percent A 0.4 % (0-0.5); Lymphocytes Absolute Auto 0.46 K/mm3 (0.9-3.2); Mean Corpuscular HGB Conc 31.1 g/dl (32-36); Mean Corpuscular Hemoglobin 29.1 pg (26-34); Mean Corpuscular Volume 93.6 fl (80-100); Nucleated Red Blood Cells Absolute Auto 0.000 K/mm3 (0.0-0.012); Nucleated Red Blood Cells Perc 0.0 % (0.0-0.2); Platelet Count Result 169 k/mm3 (150-375); Red Blood Count 4.23 M/mm3 (4.2-5.4); White Blood Count 7.8 K/mm3 (4.5-10.0)
[2025-06-28 05:07] LABS: Anion Gap 8 mmol/L (4-12); Blood Urea Nitrogen 53 mg/dL (7-17); Calcium 9.0 mg/dL (8.4-10.2); Carbon Dioxide 19 mmol/L (22-30); Chloride 116 mmol/L (98-107); Estimated CRCL calculation 34 ml/min; Estimated Glomerular Filt Rate > 60; Glucose 65 mg/dL (65-110); Potassium 3.2 mmol/L (3.4-5.0); Sodium 143 mmol/L (137-145)
--- NOTE | 2025-06-28 08:04 | P.PNIM_ITS ---
Progress Note: A&P Assessment and Plan (1) Abdominal pain: Qualifiers: Abdominal location: generalized Qualified Code(s): R10.84 - Generalized abdominal pain Code(s): R10.9 - Unspecified abdominal pain Status: Inactive Assessment and Plan: -Abdomen pelvis CT with contrast showed small to moderate amount of stool extends to the cecum with less stool in the rectum, anal rectal changes with acute inflammatory or infectious process not excluded. - management of constipation as below - patient has been following with GI due to diarrhea and new onset rectal bleeding. Notes reviewed - last seen 06/02/25 which notes history of abnormal CT of the rectum an elevated fecal calprotectin, diarrhea and rectal bleeding. At one point there was concern for C diff for which she completed short course of vancomycin and diarrhea improved. Also recently treated for E coli diarrhea (stool PCR+ 05/29). Per notes, planned to undergo flexible sigmoidoscopy for further evaluation if CT showed continued rectal wall thickening. -continue IV Zosyn - consider stool studies if diarrhea recurs -consult GI, appreciate recs (2) Constipation: Qualifiers: Constipation type: unspecified constipation type Qualified Code(s): K59.00 - Constipation, unspecified Code(s): K59.00 - Constipation, unspecified Status: Acute Assessment and Plan: -Patient presents with abdominal pain ongoing for 1 week. Patient recently had a fecal impaction on 06/15 treated with an enema. Had diarrhea on Friday, no BM since. Decreased p.o. intake over the past week. - Abdomen pelvis CT with contrast showed small to moderate amount of stool extends to the cecum with less stool in the rectum, anal rectal changes with acute inflammatory or infectious process not excluded. -soapsuds enema x1 overnight - patient had soft BM this AM - Continue Miralax daily and monitor for diarrhea recurrence. If diarrhea recurs, stop bowel regimen and order stool studies. (3) Urinary tract infection: Qualifiers: Hematuria presence: without hematuria Urinary tract infection type: acute cystitis Qualified Code(s): N30.00 - Acute cystitis without hematuria Code(s): N39.0 - Urinary tract infection, site not specified Status: Acute Assessment and Plan: -Patient does not complain of UTI symptoms, only had mild confusion on admission and abdominal pain as above - UA with 1+ protein, trace ketones, positive nitrate, 1+ bilirubin, 2+ leukocyte esterase, 6-10 RBC, 21-50 WBC, 1+ bacteria - afebrile, no leukocytosis - urine culture pending - previous micro reviewed - history of E coli with resistance - started on Zosyn, to cover both GI inflammation and UTI, on 06/27 (4) VIDHYA (acute kidney injury): Code(s): N17.9 - Acute kidney failure, unspecified Status: Acute Assessment and Plan: -Creatinine 1.7 on admission. Patient has had decreased p.o. intake recently. Creatinine on 06/15 was 0.7. -NS at 100 started on 06/27, Cr improved to 0.87 -trend renal function (5) Failure to thrive: Status: Acute Assessment and Plan: -very poor p.o. intake for at least 1 week -IV fluid switch to D5W/half-normal saline due to low blood sugars -dietitian consulted -nursing also noted coughing with eating, speech consulted (6) Hemorrhoids: Qualifiers: Hemorrhoid type: unspecified Qualified Code(s): K64.9 - Unspecified hemorrhoids Code(s): K64.9 - Unspecified hemorrhoids Status: Chronic Assessment and Plan: External hemorrhoids noted on exam. -continue topical hydrocortisone, Tucks pads (7) Essential (primary) hypertension: Code(s): I10 - Essential (primary) hypertension Status: Chronic Assessment and Plan: -Continue lisinopril, metoprolol (8) Dyslipidemia: Code(s): E78.5 - Hyperlipidemia, unspecified Status: Chronic Assessment and Plan: -Continue atorvastatin (9) Type 2 diabetes mellitus: Code(s): E11.9 - Type 2 diabetes mellitus without complications Status: Chronic Assessment and Plan: - hypoglycemia protocol - POC blood glucose ACHS - home medication: None - Low-dose sliding scale - A1C 6.2 on 04/07/2025 (10) Hypokalemia: Code(s): E87.6 - Hypokalemia Status: Acute Assessment and Plan: - potassium 3.2 - PO replacement ordered - recheck in AM Plan DVT prophylaxis: SCDs and Lovenox Code status: Full - thinks she may be DNR? They want to confirm with daughter and paperwork at home. Dispo: TBD - PT/OT consulted Subjective Date/time seen: 06/28/25 08:04 Interval history: 84-year-old female with a past medical history of HTN, GERD, COPD, AFib on Eliquis, depression, esophageal stricture, CVA, hemorrhoids, PE, RA, MALCOLM presents to the ED from home on 06/27/2025 with abdominal pain and weakness. Patient seen and examined at bedside. at bedside. Patient still complaining of left lower quadrant abdominal pain. She did have a soft stool this morning per nursing after receiving a soapsuds enema. Patient denies specific urinary symptoms, but did have some noted confusion in the ER. Has not feel she is mostly back to baseline mentation this morning, but is still very weak and not taking p.o.. Had episode of hypoglycemia this AM. Review of Systems Review of Systems: All systems reviewed & are unremarkable except as noted in HPI and below Exam Narrative: General: chronically ill-appearing, appears deconditioned Eyes: EOMI ENT: neck supple Cardiovascular: Regular rate and rhythm Respiratory: Clear to auscultation, respirations even and unlabored on RA Gastrointestinal: Soft, mild LLQ tenderness without rebound or guarding. Genitourinary: no suprapubic tenderness Musculoskeletal: No edema Skin: warm, dry Neuro: Alert and oriented x3-4. Psych: Mood appropriate Objective Data Vital Signs Vital Signs: Vital Signs - 24 hr 06/27/25 11:42 06/27/25 14:38 06/27/25 16:00 Temperature 97.6 F Pulse Rate 81 96 74 Respiratory Rate 18 20 16 Blood Pressure 109/81 108/68 111/70 Pulse Oximetry 97 98 96 Oxygen Delivery Room Air 06/27/25 17:00 06/27/25 18:48 06/27/25 20:47 Temperature 97.1 F L Pulse Rate 77 73 Respiratory Rate 16 16 Blood Pressure 136/90 141/65 H Pulse Oximetry 96 99 Oxygen Delivery Room Air 06/27/25 21:03 06/28/25 04:15 Temperature 97.0 F L 98.5 F Pulse Rate 71 87 Respiratory Rate 20 20 Blood Pressure 125/69 142/68 H Pulse Oximetry 100 97 Oxygen Delivery Intake/Output Intake/Output: Intake & Output 06/25/25 06/26/25 06/27/25 06/28/25 23:59 23:59 23:59 23:59 Intake Total 100 250 Output Total 300 Balance 100 -50 Meds/Results Medications: Active Medications Generic Name Dose Route Start Last Admin Trade Name Freq PRN Reason Stop Dose Admin Acetaminophen 650 mg 06/27/25 16:49 Acetaminophen 325 Mg Tablet PO Q4H PRN Mild Pain (1-3) or Fever Atorvastatin Calcium 40 mg 06/28/25 21:00 Atorvastatin 40 Mg Tablet PO QHS [facility] Dextrose 12.5 gm 06/28/25 00:55 Dextrose 50% 25 Gm/50 Ml Syringe IV PUSH PRN PRN Hypoglycemia Protocol Duloxetine HCl 60 mg 06/28/25 09:00 Duloxetine Hcl 60 Mg Capsule.Dr PO DAILY ILA Glucagon 1 mg 06/28/25 00:55 Glucagon For Inj 1 Mg Vial IM PRN PRN Hypoglycemia Protocol Glucose 15 gm 06/28/25 00:55 Glucose Oral Gel 15 Gm Of Glucse In 37.5 Gm Tube PO PRN PRN Hypoglycemia Protocol Heparin Sodium (Porcine) 5,000 units 06/27/25 22:00 11/18/25 05:10 Heparin Sodium 5,000 Units/Ml Vial SUB-Q 5,000 units Q8HR ILA Administration Hydrocortisone 1 applic 06/28/25 00:30 Hydrocortisone 1% 30 Gm Cream TOPICAL Q6H PRN Hemorrhoids Piperacillin Sod/Tazobactam 50 mls @ 100 mls/hr 06/27/25 17:00 06/28/25 04:57 Sod 2.25 gm/ Sodium Chloride IVPB Infused Q6H ILA Infusion Sodium Chloride 1,000 mls @ 100 mls/hr 06/27/25 16:50 06/27/25 18:21 Normal Saline Iv IV CONT 100 mls/hr .Q10H ILA Administration Dextrose 1,000 mls @ 100 mls/hr 06/28/25 00:55 Dextrose 5% 1,000 Ml IVPB PRN PRN Hypoglycemia Protocol Insulin Aspart 2 - 5 units 06/28/25 08:00 Insulin Aspart (*Bkc) 100 Units/Ml SUB-Q TIDWM [facility] Protocol Lisinopril 40 mg 06/28/25 09:00 Lisinopril 20 Mg Tablet PO DAILY [facility] Metoprolol Succinate 25 mg 06/28/25 09:00 Metoprolol Succinate Ext Rel 25 Mg Tabcr PO DAILY [facility] Multivitamins/Minerals 1 tablet 06/28/25 09:00 Opti-Gen Tab PO DAILY [facility] Pantoprazole Sodium 40 mg 06/28/25 09:00 Pantoprazole 40 Mg Tablet PO Q12HR [facility] Polyethylene Glycol 17 gm 06/28/25 09:00 Polyethylene Glycol 3350 17 Gm Powd.Pack PO Q12HR [facility] Prednisone 5 mg 06/28/25 08:00 Prednisone 5 Mg Tablet PO BIDWM [facility] Tramadol HCl 50 mg 06/28/25 00:30 Tramadol Hcl (*Crx) 50 Mg Tablet PO Q8H PRN Pain 4-6 Radiology Results: ITS Impressions Abdomen/Pelvis CT 06/27/25 16:10 IMPRESSION: 1. Anorectal changes with acute inflammatory or infectious process not excluded. 2. Other chronic appearing findings. Labs Labs: Laboratory Results - last 24 hr 06/27/25 06/27/25 06/28/25 15:09 15:16 04:19 WBC 8.1 7.8 RBC 4.66 4.23 Hgb 13.4 12.3 Hct 42.8 39.6 MCV 91.8 93.6 MCH 28.8 29.1 MCHC 31.3 L 31.1 L RDW 15.9 H 15.9 H Plt Count 216 169 MPV 9.8 9.8 Immature Gran % (Auto) 0.2 0.4 Neut % (Auto) 83.4 H 87.7 H Lymph % (Auto) 10.9 L 5.9 L [place] % (Auto) 5.1 3.8 Eos % (Auto) 0.0 1.3 Baso % (Auto) 0.4 0.9 Lymph # (Auto) 0.88 L 0.46 L [place] # (Auto) 0.4 0.3 Eos # (Auto) 0.0 0.1 Baso # (Auto) 0.0 0.1 Abs Immat Gran (auto) 0.02 0.03 Absolute Neuts (auto) 6.7 6.9 H Absolute Nucleated RBC 0.000 0.000 Nucleated RBC % 0.0 0.0 Sodium 142 143 Potassium 4.2 3.2 L Chloride 109 H 116 H Carbon Dioxide 23 19 L Anion Gap 10 8 BUN 71 H D 53 H D Creatinine 1.17 H 0.87 Estim Creat Clear Calc 26 34 Estimated GFR 44 L > 60 Glucose 111 H 65 POC Capillary Glucose Lactic Acid 1.9 Calcium 10.2 9.0 Total Bilirubin 1.1 AST 65 H ALT 42 H Alkaline Phosphatase 321 H Total Protein 6.5 Albumin 3.6 Lipase 166 Urine Color Dark yellow Urine Appearance Clear Urine pH 5.0 Ur Specific [place] 1.022 Urine Protein 1+ H Urine Glucose (UA) Negative Urine Ketones Trace H Ur Blood (Man) Negative Urine Nitrate Positive H Urine Bilirubin 1+ H Urine Urobilinogen 1.0 Add Ur Microanalysis Reviewed Leukocyte Esterase Rfl 2+ H Urine RBC 6-10 H Urine WBC 21-50 H Ur Squamous Epith Cells Occasional Urine Bacteria 1+ H Urine Casts 3-5 06/28/25 07:58 WBC RBC Hgb Hct MCV MCH MCHC RDW Plt Count MPV Immature Gran % (Auto) Neut % (Auto) Lymph % (Auto) [place] % (Auto) Eos % (Auto) Baso % (Auto) Lymph # (Auto) [place] # (Auto) Eos # (Auto) Baso # (Auto) Abs Immat Gran (auto) Absolute Neuts (auto) Absolute Nucleated RBC Nucleated RBC % Sodium Potassium Chloride Carbon Dioxide Anion Gap BUN Creatinine Estim Creat Clear Calc Estimated GFR Glucose POC Capillary Glucose 60 L Lactic Acid Calcium Total Bilirubin AST ALT Alkaline Phosphatase Total Protein Albumin Lipase Urine Color Urine Appearance Urine pH Ur Specific [place] Urine Protein Urine Glucose (UA) Urine Ketones Ur Blood (Man) Urine Nitrate Urine Bilirubin Urine Urobilinogen Add Ur Microanalysis Leukocyte Esterase Rfl Urine RBC Urine WBC Ur Squamous Epith Cells Urine Bacteria Urine Casts Quality VTE Prophylaxis VTE prophylaxis: mechanical ordered and pharmacologic ordered
[2025-06-28 08:47] VITALS: O2SAT 92
[2025-06-28] MEDS: POTASSIUM CHLORIDE 20 MEQ PACKET (FOR LIQUID) 40 MEQ PO (08:56)
[2025-06-28 08:57] VITALS: PULSE 88
[2025-06-28] MEDS: DULoxetine HCL 60 MG CAPSULE.DR PO (08:57)
[2025-06-28] MEDS: PANTOPRAZOLE 40 MG TABLET PO (08:57)
[2025-06-28] MEDS: OPTI-GEN TAB 1 TABLET PO (08:57)
[2025-06-28] MEDS: METOPROLOL SUCCINATE EXT REL 25 MG TABCR PO (08:57)
[2025-06-28] MEDS: SODIUM CHLORIDE 0.9% IV 1,000 ML 100 ML IV CONT (08:58)
[2025-06-28] MEDS: HYDROCORTISONE 1% 30 GM CREAM 1 APPLIC TOPICAL ×2 (10:40→17:44)
[2025-06-28] MEDS: traMADol HCL (*CRX) 50 MG TABLET PO (10:41)
[2025-06-28 13:10] VITALS: BMI 24.1
--- NOTE | 2025-06-28 13:30 | P.CDI_ITS ---
CDI Query Clarification Request BMI: 24.1 Nutritional Diagnostic Statement: Please refer to the comprehensive nutrition assessment for further information. If you agree with diagnosis of Moderate Protein Calorie Malnutrition as related to inadequate protein-energy intake in setting of acute disease (UTI) as evidenced by minimal oral intake for > 5 days; significant weight loss of 7 ibs (5%) in 13 days. Please specify severity if known: * Mild * Moderate * Severe * Other/Unknown <Brittany Cadena RN - Last Filed: 06/28/25 13:31> Clarified Diagnosis Clarified Diagnosis: moderate protein calorie malnutrition <ABRAM Pollard - Last Filed: 06/28/25 13:44>
[2025-06-28 14:00] VITALS: BP 143/66; PULSE 98; RESP 14; TEMP 36.4; O2SAT 90
[2025-06-28] MEDS: DEXTROSE 5%/0.45% SOD CHL 1,000 ML 75 ML IV CONT (17:01)
--- NOTE | 2025-06-28 17:32 | WPDGICN ---
Assessment and Plan Assessment and plan (1) Constipation: Qualifiers: Constipation type: unspecified constipation type Qualified Code(s): K59.00 - Constipation, unspecified Code(s): K59.00 - Constipation, unspecified Status: Acute Assessment and Plan: The patient's current symptoms are likely attributable to severe, recurrent constipation, as evidenced by a confirmed fecal impaction on today's rectal exam, similar to an episode requiring manual disimpaction two weeks prior. This explains the reported semi-loose, unformed stools (overflow diarrhea) and is the likely cause of her abdominal pain. Therefore, we recommend an aggressive bowel regimen, including the administration of soapsuds enemas every 6 hours alongside a continuation of MiraLax q 24 h. Furthermore, all narcotic analgesics, such as Tramadol, must be discontinued to prevent further exacerbation of constipation. Abdominal pain may be better managed with a low-dose antispasmodic, such as dicyclomine, 10 mg every 8 hours PRN. Separately, while the patient's urine culture grew a highly resistant E. coli sensitive to Zosyn, the lack of systemic signs of infection (normal WBC count, no sepsis symptoms) suggests an asymptomatic carrier state rather than a true urosepsis. To avoid unnecessary use of broad-spectrum antibiotics and preserve future options, we strongly advise obtaining an Infectious Disease consultation to guide the most appropriate management of this apparent resistant organism. Plan - Soapsud enemas every 6 hours - Manual disimpaction as needed - d/c Tramadol - Dycyclomine 10 mg q 8 h p.r.n pain - Infectious disease consultation : treat with Zosyn vs. 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 Her recent medical course includes a hospital visit on 06/15/2025 where she required manual disimpaction for fecal impaction. During the current admission, a CT scan revealed inflammatory changes in the rectum, findings compatible with mural thickening previously noted on a CT scan from 02/15/2025. Despite a history of minor rectal bleeding attributed to hemorrhoids, the suspicion for an infectious etiology, likely C. difficile colitis, led to the empirical initiation of vancomycin, though treatment was discontinued after only four days. She has been receiving Zosyn for an abnormal urinalysis, showing 25-50 wbc's/hpf. She has a urine culture from March this year showing the growth E coli resistant to multiple antibiotics except for Zosyn. The patient has been passing soft, unformed stools over the past few hours, sometimes more than 1 time a day. When she was administered MiraLax twice a day, she had diarrhea, therefore the dose was reduced to 1 a day. 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 Chronic venous insufficiency of lower extremity Hemorrhoid Anticoagulant long-term use Atrial fibrillation Obstructive sleep apnea (~10/2020) Polysomnogram suggesting CPAP pressure of 13 with 3 L bleed in O2 Pulmonary embolism History of cerebral hemorrhage History of stroke History of skin cancer Hyperlipidemia Esophageal stricture (~10/2021) History of shingles History of blood clots 2015 - RUE COPD (chronic obstructive pulmonary disease) With CT demonstrating emphysema with mild bronchiectasis GERD without esophagitis Essential (primary) hypertension Rheumatoid arthritis Follows with Rheumatology Surgical History Surgical History History of hemorrhoidectomy History of esophageal dilatation 10/2023, 10/2021, 04/2021 History of hemorrhoidectomy 05/08/2021 History of esophagogastroduodenoscopy (EGD) (~05/2020) History of umbilical hernia repair (10/2020) H/O angioplasty (~2018) H/O brain surgery (~2014) 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 History of knee replacement Right H/O shoulder surgery (~1964) H/O Spinal surgery (~1968) spinal tumor removed H/O: hysterectomy (~1974) History of appendectomy (~1949) H/O abdominoplasty (~2018) Family History Family History Father Hyperlipidemia Family history of Alzheimer's disease Hypertension Mother Hypertension Other Diabetes mellitus Heart disease Nervous disorder Hypertension Cerebrovascular accident Other Family history of arthritis Family history of thyroid disease Social History Social History Social History: She has been 3 times. Her 1st after 40 years of marriage. Her 2nd after 5 years . She has been to her current has been for 12 years. She has 3 children who are healthy. She is a lifelong nonsmoker and does not drink alcohol. Smoking status: Never smoker Second hand tobacco smoke exposure: No Alcohol intake: never Substance use: never Substance use type: does not use Do You Feel Safe in your Home?: Yes Lack of Transportation: No Lack of Food: Never True Current Housing: I Have Housing Concerned About Future Housing: No Difficulty Paying Gas/Electric Bills: No Difficulty Paying for Meds: No Currently Unemployed: No Education: Bachelor's Degree Difficulty w/ Childcare or Family Care: No Living arrangements: with family Occupation/Education: retired Gender identity (if verbalized by the patient): Female Sexual Orientation (if Verbalized by the Patient): Straight or Heterosexual Spiritual care concerns: No Agree to blood products: Yes Meds Home Medications and Allergies Home Medications ?Medication ?Instructions ?Recorded ?Confirmed ?Type diphenhydramine 25 1 tablet PO HS 10/24/21 06/27/25 History mg-acetaminophen 500 mg tablet (Tylenol PM Extra Strength) prednisone 2.5 mg tablet 5 mg PO BID 03/05/23 06/27/25 History acetaminophen 500 mg tablet 500 mg PO TID PRN Pain 10/01/23 06/27/25 History (Tylenol Extra Strength) [id number]-kdblcsza-noycfv tablet 1 tablet PO DAILY 10/20/23 06/27/25 History omeprazole 40 mg capsule,delayed 40 mg PO DAILY 10/14/24 06/27/25 History release hydroxychloroquine 200 mg tablet 400 mg PO DAILY 11/16/24 06/28/25 History tramadol 50 mg tablet 50 mg PO TID PRN Pain #10 tabs 02/26/25 06/27/25 Rx atorvastatin 40 mg tablet 40 mg PO QHS #100 tabs 03/24/25 06/27/25 Rx lisinopril 40 mg tablet 40 mg PO DAILY #90 tabs 04/06/25 06/27/25 Rx metoprolol succinate 25 mg 25 mg PO DAILY #100 tabs 04/06/25 06/27/25 Rx tablet,extended release 24 hr hydrocortisone 1 % topical cream 1 applic topical QID PRN 04/07/25 06/27/25 Rx (Preparation H Hydrocortisone) hemorrhoids #28.4 grams aspirin 81 mg tablet 81 mg PO HS 06/28/25 06/28/25 History hydrochlorothiazide 25 mg tablet 25 mg PO HS 06/28/25 06/28/25 History Allergies Allergy/AdvReac Type Severity Reaction Status Date / Time No Known Allergies Allergy Verified 06/27/25 11:50 Vital Signs Vital Signs - 24 hr 06/27/25 18:48 06/27/25 20:47 06/27/25 21:03 Temperature 97.1 F L 97.0 F L Pulse Rate 73 71 Respiratory Rate 16 20 Blood Pressure 141/65 H 125/69 Pulse Oximetry 99 100 Oxygen Delivery Room Air 06/28/25 04:15 06/28/25 08:47 06/28/25 08:57 Temperature 98.5 F Pulse Rate 87 88 Respiratory Rate 20 Blood Pressure 142/68 H Pulse Oximetry 97 92 Oxygen Delivery Room Air 06/28/25 09:00 06/28/25 09:42 06/28/25 10:23 Temperature Pulse Rate Respiratory Rate Blood Pressure Pulse Oximetry Oxygen Delivery Room Air Room Air Room Air 06/28/25 14:00 Temperature 97.5 F L Pulse Rate 98 Respiratory Rate 14 Blood Pressure 143/66 H Pulse Oximetry 90 Oxygen Delivery Exam Narrative: Abdomen: Soft, nontender, somewhat distended, no hepatosplenomegaly, no tenderness, no rebound. Rectal: Inspection shows medium to large size external hemorrhoids, with friability. Rectal vault with hard rock solid stools, most of which was cleared with digital disimpaction Results Labs 06/28/25 04:19 06/28/25 04:19 Labs: Short CBC 06/28/25 Range/Units 04:19 WBC 7.8 (4.5-10.0) K/mm3 Hgb 12.3 (12.0-15.0) g/dL Hct 39.6 (37.0-47.0) % Plt Count 169 (150-375) k/mm3 [facility] 06/28/25 04:19 Sodium 143 Potassium 3.2 L Chloride 116 H Carbon Dioxide 19 L BUN 53 H D Creatinine 0.87 Glucose 65 Calcium 9.0
[2025-06-28 21:00] VITALS: BP 134/75; PULSE 83; RESP 16; TEMP 36.2; O2SAT 96
[2025-06-28] MEDS: ATORVASTATIN 40 MG TABLET PO (21:02)
[2025-06-29] MEDS: PIPERACILLIN/TAZOBACTAM SOD 2.25 GM in SODIUM CHLORIDE 0.9% IV 50 ML 100 ML IVPB ×2 (04:30→13:04)
[2025-06-29 05:04] VITALS: BP 159/82; PULSE 82; RESP 20; TEMP 36.4; O2SAT 100
[2025-06-29 05:28] LABS: Hematocrit 34.4 % (37.0-47.0); Hemoglobin 10.6 g/dL (12.0-15.0); Immature Granulocyte Percent A 0.2 % (0-0.5); Lymphocytes Absolute Auto 0.72 K/mm3 (0.9-3.2); Mean Corpuscular HGB Conc 30.8 g/dl (32-36); Mean Corpuscular Hemoglobin 29.0 pg (26-34); Mean Corpuscular Volume 94.0 fl (80-100); Nucleated Red Blood Cells Absolute Auto 0.000 K/mm3 (0.0-0.012); Nucleated Red Blood Cells Perc 0.0 % (0.0-0.2); Platelet Count Result 142 k/mm3 (150-375); Red Blood Count 3.66 M/mm3 (4.2-5.4); White Blood Count 4.7 K/mm3 (4.5-10.0)
[2025-06-29 05:42] LABS: Alanine Aminotransferase 37 U/L (6-35); Albumin Level 2.7 g/dL (3.5-5.1); Alkaline Phosphatase 295 U/L (38-126); Anion Gap 6 mmol/L (4-12); Aspartate Amino Transferase 61 U/L (14-36); Bilirubin,Total 1.0 mg/dL (0.2-1.3); Blood Urea Nitrogen 34 mg/dL (7-17); Calcium 8.5 mg/dL (8.4-10.2); Carbon Dioxide 19 mmol/L (22-30); Chloride 121 mmol/L (98-107); Estimated CRCL calculation 41 ml/min; Estimated Glomerular Filt Rate > 60; Glucose 97 mg/dL (65-110); Potassium 3.8 mmol/L (3.4-5.0); Sodium 146 mmol/L (137-145); Total Protein 5.3 g/dL (6.3-8.2)
--- NOTE | 2025-06-29 11:54 | WPDIDCN ---
Assessment and Plan Assessment and plan (1) Abdominal distention: Code(s): R14.0 - Abdominal distension (gaseous) Status: Acute Assessment and Plan: ASSESSMENT: 1. Asymptomatic gram-negative bacteriuria 2. Constipation with fecal impaction 3. Encopresis/overflow stool incontinence 4. History of E. coli bacteriuria PLAN: -As no evidence of true UTI, discontinue Zosyn and observe -Constipation management as per GI service -No other recommendations at this time -ID service will sign off Discussed with patient at bedside. All questions answered HPI Data of Consult Date/Time: 06/29/25 11:54 Requesting Physician: Ulysses Nolasco MD Primary Care Provider: Mikayla Fernando APRN Consult Narrative Reason for consult: Bacteriuria Narrative: Rosa Veronica is a 84 year old female with history of constipation, encopresis who was admitted with abdominal pain. CT scan notable for changes compatible with fecal impaction. She was noted to have encopresis. GI PCR PANEL is negative. UA with moderate pyuria but patient without UTI symptoms. Prior urine cultures have grown E.coli. Patient reports chronic dysuria which is unchanged. She is not always an accurate historian. No fever, chills noted. 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 Chronic venous insufficiency of lower extremity Hemorrhoid Anticoagulant long-term use Atrial fibrillation Obstructive sleep apnea (~10/2020) Polysomnogram suggesting CPAP pressure of 13 with 3 L bleed in O2 Pulmonary embolism History of cerebral hemorrhage History of stroke History of skin cancer Hyperlipidemia Esophageal stricture (~10/2021) History of shingles History of blood clots 2015 - RUE COPD (chronic obstructive pulmonary disease) With CT demonstrating emphysema with mild bronchiectasis GERD without esophagitis Essential (primary) hypertension Rheumatoid arthritis Follows with Rheumatology Surgical History Surgical History History of hemorrhoidectomy History of esophageal dilatation 10/2023, 10/2021, 04/2021 History of hemorrhoidectomy 05/08/2021 History of esophagogastroduodenoscopy (EGD) (~05/2020) History of umbilical hernia repair (10/2020) H/O angioplasty (~2018) H/O brain surgery (~2014) 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 History of knee replacement Right H/O shoulder surgery (~1964) H/O Spinal surgery (~1968) spinal tumor removed H/O: hysterectomy (~1974) History of appendectomy (~194) H/O abdominoplasty (~2017) Family History Family History Father Hyperlipidemia Family history of Alzheimer's disease Hypertension Mother Hypertension Other Diabetes mellitus Heart disease Nervous disorder Hypertension Cerebrovascular accident Other Family history of arthritis Family history of thyroid disease Social History Social History Social History: She has been 3 times. Her 1st after 40 years of marriage. Her 2nd after 5 years . She has been to her current has been for 12 years. She has 3 children who are healthy. She is a lifelong nonsmoker and does not drink alcohol. Smoking status: Never smoker Second hand tobacco smoke exposure: No Alcohol intake: never Substance use: never Substance use type: does not use Do You Feel Safe in your Home?: Yes Lack of Transportation: No Lack of Food: Never True Current Housing: I Have Housing Concerned About Future Housing: No Difficulty Paying Gas/Electric Bills: No Difficulty Paying for Meds: No Currently Unemployed: No Education: Bachelor's Degree Difficulty w/ Childcare or Family Care: No Living arrangements: with family Occupation/Education: retired Gender identity (if verbalized by the patient): Female Sexual Orientation (if Verbalized by the Patient): Straight or Heterosexual Spiritual care concerns: No Agree to blood products: Yes Meds Home Medications and Allergies Home Medications ?Medication ?Instructions ?Recorded ?Confirmed ?Type diphenhydramine 25 1 tablet PO HS 10/24/21 06/27/25 History mg-acetaminophen 500 mg tablet (Tylenol PM Extra Strength) prednisone 2.5 mg tablet 5 mg PO BID 03/05/23 06/27/25 History acetaminophen 500 mg tablet 500 mg PO TID PRN Pain 10/01/23 06/27/25 History (Tylenol Extra Strength) kcywfkysychd-cxlsnfyo-xkpybm tablet 1 tablet PO DAILY 10/20/23 06/27/25 History omeprazole 40 mg capsule,delayed 40 mg PO DAILY 10/14/24 06/27/25 History release hydroxychloroquine 200 mg tablet 400 mg PO DAILY 11/16/24 06/28/25 History tramadol 50 mg tablet 50 mg PO TID PRN Pain #10 tabs 02/26/25 06/27/25 Rx atorvastatin 40 mg tablet 40 mg PO QHS #100 tabs 03/24/25 06/27/25 Rx lisinopril 40 mg tablet 40 mg PO DAILY #90 tabs 04/06/25 06/27/25 Rx metoprolol succinate 25 mg 25 mg PO DAILY #100 tabs 04/06/25 06/27/25 Rx tablet,extended release 24 hr hydrocortisone 1 % topical cream 1 applic topical QID PRN 04/07/25 06/27/25 Rx (Preparation H Hydrocortisone) hemorrhoids #28.4 grams aspirin 81 mg tablet 81 mg PO HS 06/28/25 06/28/25 History hydrochlorothiazide 25 mg tablet 25 mg PO HS 06/28/25 06/28/25 History Allergies Allergy/AdvReac Type Severity Reaction Status Date / Time No Known Allergies Allergy Verified 06/27/25 11:50 Vital Signs Vital Signs - 24 hr 06/28/25 14:00 06/28/25 20:00 06/28/25 21:00 Temperature 97.5 F L 97.2 F L Pulse Rate 98 83 Respiratory Rate 14 16 Blood Pressure 143/66 H 134/75 Pulse Oximetry 90 96 Oxygen Delivery Room Air 06/29/25 05:04 06/29/25 09:00 Temperature 97.6 F Pulse Rate 82 Respiratory Rate 20 Blood Pressure 159/82 H Pulse Oximetry 100 Oxygen Delivery Room Air Exam Narrative: Gen: NAD Cor: no tachycardia Pulm: no tachypnea, normal chest wall expansion Abd: distended Results Labs 06/29/25 05:17 06/29/25 05:17 Labs: Short CBC 06/29/25 Range/Units 05:17 WBC 4.7 (4.5-10.0) K/mm3 Hgb 10.6 L (12.0-15.0) g/dL Hct 34.4 L (37.0-47.0) % Plt Count 142 L (150-375) k/mm3 BMP 06/29/25 05:17 Sodium 146 H Potassium 3.8 Chloride 121 H Carbon Dioxide 19 L BUN 34 H D Creatinine 0.72 Glucose 97 Calcium 8.5 Liver Function 06/29/25 Range/Units 05:17 Total Bilirubin 1.0 (0.2-1.3) mg/dL AST 61 H (14-36) U/L ALT 37 H (6-35) U/L Alkaline Phosphatase 295 H (38-126) U/L Albumin 2.7 L (3.5-5.1) g/dL
--- NOTE | 2025-06-29 11:58 | P.PNIM_ITS ---
Progress Note: A&P Assessment and Plan (1) Abdominal pain: Qualifiers: Abdominal location: generalized Qualified Code(s): R10.84 - Generalized abdominal pain Code(s): R10.9 - Unspecified abdominal pain Status: Inactive Assessment and Plan: -Abdomen pelvis CT with contrast showed small to moderate amount of stool extends to the cecum with less stool in the rectum, anal rectal changes with acute inflammatory or infectious process not excluded. - management of constipation as below - patient has been following with GI due to diarrhea and new onset rectal bleeding. Notes reviewed - last seen 06/02/25 which notes history of abnormal CT of the rectum an elevated fecal calprotectin, diarrhea and rectal bleeding. At one point there was concern for C diff for which she completed short course of vancomycin and diarrhea improved. Also recently treated for E coli diarrhea (stool PCR+ 05/29). Per notes, planned to undergo flexible sigmoidoscopy for further evaluation if CT showed continued rectal wall thickening. -continue IV Zosyn - consider stool studies if diarrhea recurs -consult GI, appreciate recs 06/29: Still constipated status post disimpaction at bedside yesterday by Gastroenterology, poorly tolerating soapsuds enemas even with pretreatment topically with 2% lidocaine. IV Zosyn discontinued after GI consulted Infectious Disease (2) Constipation: Qualifiers: Constipation type: unspecified constipation type Qualified Code(s): K59.00 - Constipation, unspecified Code(s): K59.00 - Constipation, unspecified Status: Acute Assessment and Plan: -Patient presents with abdominal pain ongoing for 1 week. Patient recently had a fecal impaction on 06/15 treated with an enema. Had diarrhea on Friday, no BM since. Decreased p.o. intake over the past week. - Abdomen pelvis CT with contrast showed small to moderate amount of stool extends to the cecum with less stool in the rectum, anal rectal changes with acute inflammatory or infectious process not excluded. -soapsuds enema x1 overnight - patient had soft BM this AM - Continue Miralax daily and monitor for diarrhea recurrence. If diarrhea recurs, stop bowel regimen and order stool studies. 06/29: I personally inserted enema tube to reasonable depth past what could be reached digitally and instilled about 300 mL warm soapy water. This was still very painful at the insertion site despite pretreatment with lidocaine and attempts to be very delicate. Previous diarrhea was likely liquid overflow stool incontinence around fecal impaction. (3) Urinary tract infection: Qualifiers: Urinary tract infection type: acute cystitis Hematuria presence: without hematuria Qualified Code(s): N30.00 - Acute cystitis without hematuria Code(s): N39.0 - Urinary tract infection, site not specified Status: Acute Assessment and Plan: -Patient does not complain of UTI symptoms, only had mild confusion on admission and abdominal pain as above - UA with 1+ protein, trace ketones, positive nitrate, 1+ bilirubin, 2+ leukocyte esterase, 6-10 RBC, 21-50 WBC, 1+ bacteria - afebrile, no leukocytosis - urine culture pending - previous micro reviewed - history of E coli with resistance - started on Zosyn, to cover both GI inflammation and UTI, on 06/27 06/29: Infectious disease declares asymptomatic Gram-negative bacteriuria and discontinued IV Zosyn Infectious disease also signed off the case (4) VIDHYA (acute kidney injury): Code(s): N17.9 - Acute kidney failure, unspecified Status: Acute Assessment and Plan: -Creatinine 1.7 on admission. Patient has had decreased p.o. intake recently. Creatinine on 06/15 was 0.7. -NS at 100 started on 06/27, Cr improved to 0.87 -trend renal function 06/29: Renal function improving with IV fluids though she developed fluid overload. BUN down to 34, creatinine 0.72 estimated GFR greater than 60 and estimated creatinine clearance 41 on morning labs (5) Failure to thrive: Status: Ruled-out Assessment and Plan: -very poor p.o. intake for at least 1 week -IV fluid switch to D5W/half-normal saline due to low blood sugars -dietitian consulted -nursing also noted coughing with eating, speech consulted 06/29: Will change this diagnosis to dysphagia Modified barium swallow shows patient requires moderately thickened liquids from a cup with extra swallowing no straws Constipation/fecal impaction was causing nausea and diminished desire to eat or drink (6) Hemorrhoids: Qualifiers: Hemorrhoid type: unspecified Qualified Code(s): K64.9 - Unspecified hemorrhoids Code(s): K64.9 - Unspecified hemorrhoids Status: Chronic Assessment and Plan: External hemorrhoids noted on exam. -continue topical hydrocortisone, Tucks pads 06/29: No severe thrombosed hemorrhoids though they do appear moderately irritated Avoid opioid pain medications due to constipation and fecal impaction (7) Essential (primary) hypertension: Code(s): I10 - Essential (primary) hypertension Status: Chronic Assessment and Plan: -Continue lisinopril, metoprolol 06/29: Blood pressure reviewed and increased in the afternoon, resume medications that were on hold due to NPO status (8) Dyslipidemia: Code(s): E78.5 - Hyperlipidemia, unspecified Status: Chronic Assessment and Plan: -Continue atorvastatin (9) Type 2 diabetes mellitus: Code(s): E11.9 - Type 2 diabetes mellitus without complications Status: Chronic Assessment and Plan: - hypoglycemia protocol - POC blood glucose ACHS - home medication: None - Low-dose sliding scale - A1C 6.2 on 04/07/2025 06/29: Glucose improved, diet ordered (10) Hypokalemia: Code(s): E87.6 - Hypokalemia Status: Acute Assessment and Plan: - potassium 3.2 - PO replacement ordered - recheck in AM 06/29: Potassium 3.8 labs, recheck tomorrow (11) Dysphagia: Code(s): R13.10 - Dysphagia, unspecified Status: Chronic Assessment and Plan: 06/29: Modified barium swallow shows aspiration with thin liquids, speech therapy recommending regular textured food, moderately thickened level 3 liquids no straw only cup with an extra swallow after each drink Plan DVT prophylaxis: SCDs and Lovenox Code status: DNR Dispo: To be determined, PT OT and speech therapy will recommending 3-5 days treatment per week for 2 weeks Time Spent With Patient Time with patient: Greater than 35 minutes Subjective Date/time seen: 06/29/25 11:58 Interval history: This is an 84-year-old female patient admitted to the hospital for abdominal pain with constipation nausea and severe weakness. She has not been able to eat or drink at home and getting weaker over the past 1 week. On admission there was concern about patient choking on her intake. There was also concern for fecal impaction she. Gastroenterology was consulted and did a manual disimpaction at bedside yesterday as well as ordered every 6 hours soapsuds enemas. Patient having significant discomfort with this due to external hemorrhoids. I attempted to alleviate this with application of lidocaine prior to enema and I personally inserted enema tube gently into what remained of solid colonic stool. Approximately 300 mL of warm soapsuds water was able to be instilled. Patient not really tolerating this due to discomfort with the hemorrhoids. She also underwent barium swallow study today in which speech therapy is recommending a regular diet with level 3 moderately thickened liquids from a cup only no straws. GI service consulted Infectious Disease who recommended discontinuing Zosyn and monitoring patient status, declaring results asymptomatic Gram-negative bacteruria as well as constipation with fecal impaction and encopresis/overflow stool incontinence. Overnight patient had been on dextrose containing fluids but developed dyspnea and significant swelling. She was treated with diuretics and IV fluids were discontinued due to fluid overload. She spent most of the day today NPO until barium swallow was completed and speech therapy notified provider of results and recommendations. I spoke to patient's son who is the healthcare power of employment attorney and code status changed to DNR. We also discussed consideration of gastric tube if patient was unable to resume safe swallowing. This was prior to barium swallow results and no immediate action was planned however we did want them to think about this in the future. Patient agreeable with Code status change though she is confused enough to require the guidance from her designated healthcare power of employment attorney. Review of Systems Review of Systems: All systems reviewed & are unremarkable except as noted in HPI and below Objective Data Vital Signs Vital Signs: Vital Signs - 24 hr 06/28/25 14:00 06/28/25 20:00 06/28/25 21:00 Temperature 36.4 C L 36.2 C L Pulse Rate 98 83 Respiratory Rate 14 16 Blood Pressure 143/66 H 134/75 Pulse Oximetry 90 96 Oxygen Delivery Room Air 06/29/25 05:04 06/29/25 09:00 Temperature 36.4 C Pulse Rate 82 Respiratory Rate 20 Blood Pressure 159/82 H Pulse Oximetry 100 Oxygen Delivery Room Air Intake/Output Intake/Output: Intake & Output 06/26/25 06/27/25 06/28/25 06/29/25 23:59 23:59 23:59 23:59 Intake Total 100 2594.7 50 Output Total 600 Balance 100 1994.7 50 Meds/Results Medications: Active Medications Generic Name Dose Route Start Last Admin Trade Name Freq PRN Reason Stop Dose Admin Acetaminophen 650 mg 06/27/25 16:49 Acetaminophen 325 Mg Tablet PO Q4H PRN Mild Pain (1-3) or Fever Atorvastatin Calcium 40 mg 06/28/25 21:00 06/28/25 21:02 Atorvastatin 40 Mg Tablet PO 40 mg QHS ILA Administration Dextrose 12.5 gm 06/28/25 00:55 Dextrose 50% 25 Gm/50 Ml Syringe IV PUSH PRN PRN Hypoglycemia Protocol Dicyclomine HCl 10 mg 06/28/25 17:52 Dicyclomine Hcl 10 Mg Capsule PO TID PRN Abdominal Cramping Duloxetine HCl 60 mg 06/28/25 09:00 06/28/25 08:57 Duloxetine Hcl 60 Mg Capsule.Dr PO 60 mg DAILY ILA Administration Enoxaparin Sodium 40 mg 06/29/25 09:00 Enoxaparin 40 Mg/0.4 Ml Syringe SUB-Q DAILY ILA Glucagon 1 mg 06/28/25 00:55 Glucagon For Inj 1 Mg Vial IM PRN PRN Hypoglycemia Protocol Glucose 15 gm 06/28/25 00:55 Glucose Oral Gel 15 Gm Of Glucse In 37.5 Gm Tube PO PRN PRN Hypoglycemia Protocol Hydrocortisone 1 applic 06/28/25 00:30 06/28/25 17:44 Hydrocortisone 1% 30 Gm Cream TOPICAL 1 applic Q6H PRN Administration Hemorrhoids Piperacillin Sod/Tazobactam 50 mls @ 100 mls/hr 06/27/25 17:00 06/29/25 05:00 Sod 2.25 gm/ Sodium Chloride IVPB Infused Q6H ILA Infusion Dextrose 1,000 mls @ 100 mls/hr 06/28/25 00:55 Dextrose 5% 1,000 Ml IVPB PRN PRN Hypoglycemia Protocol Insulin Aspart 2 - 5 units 06/28/25 08:00 06/29/25 08:13 Insulin Aspart (*Bkc) 100 Units/Ml SUB-Q Not Given [facility] Protocol Lisinopril 40 mg 06/28/25 09:00 06/28/25 08:57 Lisinopril 20 Mg Tablet PO 40 mg DAILY ILA Administration Metoprolol Succinate 25 mg 06/28/25 09:00 06/28/25 08:57 Metoprolol Succinate Ext Rel 25 Mg Tabcr PO 25 mg DAILY ILA Administration Multivitamins/Minerals 1 tablet 06/28/25 09:00 06/28/25 08:57 Opti-Gen Tab PO 1 tablet DAILY ILA Administration Pantoprazole Sodium 40 mg 06/28/25 09:00 06/28/25 21:07 Pantoprazole 40 Mg Tablet PO Not Given Q12HR ILA Polyethylene Glycol 17 gm 06/29/25 09:00 Polyethylene Glycol 3350 17 Gm Powd.Pack PO QAM ILA Prednisone 5 mg 06/28/25 08:00 06/28/25 17:01 Prednisone 5 Mg Tablet PO 5 mg BIDWM ILA Administration Witch Saranya 1 pad 06/28/25 10:36 Witch Saranya 40 Pads TOPICAL PRN PRN Perineal Discomfort Radiology Results: ITS Impressions Abdomen/Pelvis CT 06/27/25 16:10 IMPRESSION: 1. Anorectal changes with acute inflammatory or infectious process not excluded. 2. Other chronic appearing findings. Chest X-Ray 06/29/25 07:27 IMPRESSION: 1. Interstitial pulmonary edema. Labs Labs: Laboratory Results - last 24 hr 06/28/25 06/28/25 06/29/25 16:55 20:55 05:17 WBC 4.7 RBC 3.66 L Hgb 10.6 L Hct 34.4 L MCV 94.0 MCH 29.0 MCHC 30.8 L RDW 16.0 H Plt Count 142 L MPV 9.6 Immature Gran % (Auto) 0.2 Neut % (Auto) 76.8 H Lymph % (Auto) 15.2 L [place] % (Auto) 7.2 Eos % (Auto) 0.0 Baso % (Auto) 0.6 Lymph # (Auto) 0.72 L [place] # (Auto) 0.3 Eos # (Auto) 0.0 Baso # (Auto) 0.0 Abs Immat Gran (auto) 0.01 Absolute Neuts (auto) 3.6 Absolute Nucleated RBC 0.000 Nucleated RBC % 0.0 Sodium 146 H Potassium 3.8 Chloride 121 H Carbon Dioxide 19 L Anion Gap 6 BUN 34 H D Creatinine 0.72 Estim Creat Clear Calc 41 Estimated GFR > 60 Glucose 97 POC Capillary Glucose 157 H 291 H Calcium 8.5 Total Bilirubin 1.0 AST 61 H ALT 37 H Alkaline Phosphatase 295 H Total Protein 5.3 L Albumin 2.7 L 06/29/25 08:00 WBC RBC Hgb Hct MCV MCH MCHC RDW Plt Count MPV Immature Gran % (Auto) Neut % (Auto) Lymph % (Auto) [place] % (Auto) Eos % (Auto) Baso % (Auto) Lymph # (Auto) [place] # (Auto) Eos # (Auto) Baso # (Auto) Abs Immat Gran (auto) Absolute Neuts (auto) Absolute Nucleated RBC Nucleated RBC % Sodium Potassium Chloride Carbon Dioxide Anion Gap BUN Creatinine Estim Creat Clear Calc Estimated GFR Glucose POC Capillary Glucose 91 Calcium Total Bilirubin AST ALT Alkaline Phosphatase Total Protein Albumin Pulse Oximetry SpO2 results: 96-100% on room air Attestation: I personally reviewed and interpreted this pulse oximetry as follows: Interpretation: No need for supplemental oxygenation at this time Quality VTE Prophylaxis VTE prophylaxis: pharmacologic ordered (Lovenox) Hospitalist MIPS Advance Care Plan I have confirmed that the patient's Advanced Care Plan is present, code status is documented, or surrogate decision maker is listed in patient medical record.: Yes Medication Reconciliation I have utilized all available resources to obtain, update and review the patients current medications (includes all prescriptions, OTC, herbals, cannabis, and nutritional supplements).: Yes
[2025-06-29] MEDS: ENOXAPARIN 40 MG/0.4 ML SYRINGE SUB-Q (13:05)
--- NOTE | 2025-06-29 14:25 | PCPTNOTE ---
BISI Hilton advised to not see pt at this time. Pt is having an US and enema. Will continue to follow.
--- NOTE | 2025-06-29 14:53 | PCSTNOTE ---
Please refer to the Modified Barium Swallow Evaluation in the EMR. Pt is a 84 year old women who has a notable history for significant dysphagia spanning about 10 years. She presents at the hospital for diarrhea and RN reports coughing with liquids the previous evening. A MBSS was completed due to pt's significant history of dysphagia. Trials included thin liquid barium via teaspoon, mildly thick liquid barium, moderately thick liquid barium, barium pudding, and hard solids. Pt with premature loss to the pyriform sinuses consistently across all volumes and consistencies due to reduced lingual to palatal seal. Thin liquid trials were presented via teaspoon. Pt with moderate aspiration across all trials of thin liquids. A chin tuck and Right head turn were attempted; however, were ineffective in reducing the volume of deep penetration or aspiration. Pt with inconsistent sensation and a weak cough that did not fully clear material from the vocal folds or laryngeal vestibule. This resulted in the pt re-aspirating the thin material multiple times throughout the study. Mildly thick liquids were presented via teaspoon x1 and multiple drinks from the cup edge. Small volume penetration was noted across all trials and it inconsistently cleared the laryngeal vestibule. When a larger regular sized drink was presented, pt was seen with deep penetration and trace aspiration x1. Moderately thick liquids were presented via cup edge and no penetration or aspiration was visualized across volumes. Penetration and aspiration was due to pt with poor laryngeal elevation and closure. No penetration or aspiration was visualized across trials of puree or hard solids. Across all trials, pt with moderate to severe residue in the vallecula and pyriform sinuses due to poor tongue base retraction. A chin tuck and liquid wash were attempted to clear residue; however was ineffective. The most effective strategy was a cued repeat swallow after each trial. Of note, pt with moderate esophageal retention visualized below the level of the UES. Recommendations: 1. Level 7 (Regular) and Level 3 (Moderately thick liquids) 2. REPEAT SWALLOW AFTER EACH PO TRIAL, upright for all PO, small bites and sips, frequent observation 3. ST services 3-5x/week for 2 weeks to target pt dysphagia and increase swallow function. Repeat MBSS when indicated by consistent use of exercises and tolerating current diet.
[2025-06-29 15:04] VITALS: PULSE 92
[2025-06-29] MEDS: DULoxetine HCL 60 MG CAPSULE.DR PO (15:04)
[2025-06-29] MEDS: OPTI-GEN TAB 1 TABLET PO (15:04)
[2025-06-29] MEDS: METOPROLOL SUCCINATE EXT REL 25 MG TABCR PO (15:04)
[2025-06-29 15:28] VITALS: BP 174/88; PULSE 96; RESP 16; TEMP 36.3; O2SAT 97
--- NOTE | 2025-06-29 18:49 | WPDGIPROGNO ---
Progress Note: A&P Assessment and Plan (1) Constipation: Qualifiers: Constipation type: unspecified constipation type Qualified Code(s): K59.00 - Constipation, unspecified Code(s): K59.00 - Constipation, unspecified Status: Acute Assessment and Plan: The patient is somewhat relieved from prior fecal impaction, although she still has some discomfort related to gas. Since there is no fecal impaction on tonight's rectal examination, will discontinue enemas and recommend maintenance with Miralax once a day. The addition of LInzess may help preventing impaction episodes, as well as a high fiber diet. There is no indication for endoscopic procedures at this time. Regarding the swallowing issues, report observing some aspiration noticed. Please discuss options with speech therapy, patient and family, and if there is agreement we can be re consulted to place a PEG tube. Subjective Date/time seen: 06/29/25 18:49 Interval history: Patient reports less abdominal pain. Enemas administered but creating significant discomfort. Manual disimpaction performed yesterday, with relief of constipation. Exam Narrative: Digital rectal examination : scant amount of fecaliths, overflow diarrhea evident. No changes in abdominal examination . Objective Data Vital Signs Vital Signs: Vital Signs - 24 hr 06/28/25 20:00 06/28/25 21:00 06/29/25 05:04 Temperature 97.2 F L 97.6 F Pulse Rate 83 82 Respiratory Rate 16 20 Blood Pressure 134/75 159/82 H Pulse Oximetry 96 100 Oxygen Delivery Room Air 06/29/25 09:00 06/29/25 15:04 06/29/25 15:28 Temperature 97.4 F L Pulse Rate 92 96 Respiratory Rate 16 Blood Pressure 174/88 H Pulse Oximetry 97 Oxygen Delivery Room Air Intake/Output Intake/Output: Intake & Output 06/26/25 06/27/25 06/28/25 06/29/25 23:59 23:59 23:59 23:59 Intake Total 100 2594.7 290 Output Total 600 Balance 100 1994.7 290 Meds/Results Medications: Active Medications Generic Name Dose Route Start Last Admin Trade Name Freq PRN Reason Stop Dose Admin Acetaminophen 650 mg 06/27/25 16:49 Acetaminophen 325 Mg Tablet PO Q4H PRN Mild Pain (1-3) or Fever Atorvastatin Calcium 40 mg 06/28/25 21:00 06/28/25 21:02 Atorvastatin 40 Mg Tablet PO 40 mg QHS ILA Administration Dextrose 12.5 gm 06/28/25 00:55 Dextrose 50% 25 Gm/50 Ml Syringe IV PUSH PRN PRN Hypoglycemia Protocol Dicyclomine HCl 10 mg 06/28/25 17:52 Dicyclomine Hcl 10 Mg Capsule PO TID PRN Abdominal Cramping Duloxetine HCl 60 mg 06/28/25 09:00 06/29/25 15:04 Duloxetine Hcl 60 Mg Capsule.Dr PO 60 mg DAILY ILA Administration Enoxaparin Sodium 40 mg 06/29/25 09:00 06/29/25 13:05 Enoxaparin 40 Mg/0.4 Ml Syringe SUB-Q 40 mg DAILY ILA Administration Glucagon 1 mg 06/28/25 00:55 Glucagon For Inj 1 Mg Vial IM PRN PRN Hypoglycemia Protocol Glucose 15 gm 06/28/25 00:55 Glucose Oral Gel 15 Gm Of Glucse In 37.5 Gm Tube PO PRN PRN Hypoglycemia Protocol Hydrocortisone 1 applic 06/28/25 00:30 06/28/25 17:44 Hydrocortisone 1% 30 Gm Cream TOPICAL 1 applic Q6H PRN Administration Hemorrhoids Dextrose 1,000 mls @ 100 mls/hr 06/28/25 00:55 Dextrose 5% 1,000 Ml IVPB PRN PRN Hypoglycemia Protocol Insulin Aspart 2 - 5 units 06/28/25 08:00 06/29/25 17:45 Insulin Aspart (*Bkc) 100 Units/Ml SUB-Q Not Given TIDWM [facility] Protocol Lidocaine HCl 10 ml 06/29/25 12:29 Lidocaine 2% Gel Urojet 10 Ml Pkg XX Q6H PRN Pain with enemas Lisinopril 40 mg 06/28/25 09:00 06/29/25 15:04 Lisinopril 20 Mg Tablet PO 40 mg DAILY ILA Administration Metoprolol Succinate 25 mg 06/28/25 09:00 06/29/25 15:04 Metoprolol Succinate Ext Rel 25 Mg Tabcr PO 25 mg DAILY ILA Administration Multivitamins/Minerals 1 tablet 06/28/25 09:00 06/29/25 15:04 Opti-Gen Tab PO 1 tablet DAILY ILA Administration Pantoprazole Sodium 40 mg 06/28/25 09:00 06/29/25 13:46 Pantoprazole 40 Mg Tablet PO Not Given Q12HR ILA Polyethylene Glycol 17 gm 06/29/25 09:00 06/29/25 15:04 Polyethylene Glycol 3350 17 Gm Powd.Pack PO 17 gm QAM ILA Administration Prednisone 5 mg 06/28/25 08:00 06/29/25 17:39 Prednisone 5 Mg Tablet PO 5 mg BIDWM ILA Administration Witch Saranya 1 pad 06/28/25 10:36 Witch Saranya 40 Pads TOPICAL PRN PRN Perineal Discomfort Radiology Results: ITS Impressions Abdomen/Pelvis CT 06/27/25 16:10 IMPRESSION: 1. Anorectal changes with acute inflammatory or infectious process not excluded. 2. Other chronic appearing findings. Chest X-Ray 06/29/25 07:27 IMPRESSION: 1. Interstitial pulmonary edema. Modified Barium Swallow 06/29/25 14:14 IMPRESSION: Aspiration was observed on thin sequences. See speech therapist's report for complete evaluation. Labs Labs: Laboratory Results - last 24 hr 06/28/25 06/29/25 06/29/25 20:55 05:17 08:00 WBC 4.7 RBC 3.66 L Hgb 10.6 L Hct 34.4 L MCV 94.0 MCH 29.0 MCHC 30.8 L RDW 16.0 H Plt Count 142 L MPV 9.6 Immature Gran % (Auto) 0.2 Neut % (Auto) 76.8 H Lymph % (Auto) 15.2 L [place] % (Auto) 7.2 Eos % (Auto) 0.0 Baso % (Auto) 0.6 Lymph # (Auto) 0.72 L [place] # (Auto) 0.3 Eos # (Auto) 0.0 Baso # (Auto) 0.0 Abs Immat Gran (auto) 0.01 Absolute Neuts (auto) 3.6 Absolute Nucleated RBC 0.000 Nucleated RBC % 0.0 Sodium 146 H Potassium 3.8 Chloride 121 H Carbon Dioxide 19 L Anion Gap 6 BUN 34 H D Creatinine 0.72 Estim Creat Clear Calc 41 Estimated GFR > 60 Glucose 97 POC Capillary Glucose 291 H 91 Calcium 8.5 Total Bilirubin 1.0 AST 61 H ALT 37 H Alkaline Phosphatase 295 H Total Protein 5.3 L Albumin 2.7 L 06/29/25 06/29/25 12:10 17:31 WBC RBC Hgb Hct MCV MCH MCHC RDW Plt Count MPV Immature Gran % (Auto) Neut % (Auto) Lymph % (Auto) [place] % (Auto) Eos % (Auto) Baso % (Auto) Lymph # (Auto) [place] # (Auto) Eos # (Auto) Baso # (Auto) Abs Immat Gran (auto) Absolute Neuts (auto) Absolute Nucleated RBC Nucleated RBC % Sodium Potassium Chloride Carbon Dioxide Anion Gap BUN Creatinine Estim Creat Clear Calc Estimated GFR Glucose POC Capillary Glucose 82 93 Calcium Total Bilirubin AST ALT Alkaline Phosphatase Total Protein Albumin
[2025-06-29] MEDS: PANTOPRAZOLE 40 MG TABLET PO (20:49)
[2025-06-29] MEDS: ATORVASTATIN 40 MG TABLET PO (20:49)
[2025-06-29 20:50] VITALS: BP 178/95; PULSE 62; RESP 16; TEMP 36.8; O2SAT 97
[2025-06-29 23:00] VITALS: BP 160/90
[2025-06-30] MEDS: MEROPENEM 1 GM in SODIUM CHLORIDE 0.9% IV 100 ML 200 ML IVPB ×2 (00:12→23:58)
[2025-06-30 04:47] VITALS: BP 168/92; PULSE 67; RESP 16; TEMP 36.6; O2SAT 96
[2025-06-30 05:13] LABS: Hematocrit 34.9 % (37.0-47.0); Hemoglobin 11.1 g/dL (12.0-15.0); Immature Granulocyte Percent A 0.2 % (0-0.5); Lymphocytes Absolute Auto 0.87 K/mm3 (0.9-3.2); Mean Corpuscular HGB Conc 31.8 g/dl (32-36); Mean Corpuscular Hemoglobin 29.8 pg (26-34); Mean Corpuscular Volume 93.6 fl (80-100); Nucleated Red Blood Cells Absolute Auto 0.000 K/mm3 (0.0-0.012); Nucleated Red Blood Cells Perc 0.0 % (0.0-0.2); Platelet Count Result 148 k/mm3 (150-375); Red Blood Count 3.73 M/mm3 (4.2-5.4); White Blood Count 4.1 K/mm3 (4.5-10.0)
[2025-06-30 05:40] LABS: Alanine Aminotransferase 35 U/L (6-35); Albumin Level 2.6 g/dL (3.5-5.1); Alkaline Phosphatase 272 U/L (38-126); Anion Gap 4 mmol/L (4-12); Aspartate Amino Transferase 54 U/L (14-36); Bilirubin,Total 0.7 mg/dL (0.2-1.3); Blood Urea Nitrogen 22 mg/dL (7-17); Calcium 8.8 mg/dL (8.4-10.2); Carbon Dioxide 23 mmol/L (22-30); Chloride 118 mmol/L (98-107); Estimated CRCL calculation 47 ml/min; Estimated Glomerular Filt Rate > 60; Glucose 97 mg/dL (65-110); Potassium 3.7 mmol/L (3.4-5.0); Sodium 145 mmol/L (137-145); Total Protein 5.2 g/dL (6.3-8.2)
[2025-06-30] MEDS: LINACLOTIDE 145 MCG CAPSULE PO (06:17)
[2025-06-30] MEDS: DULoxetine HCL 60 MG CAPSULE.DR PO (08:46)
[2025-06-30] MEDS: PANTOPRAZOLE 40 MG TABLET PO ×2 (08:46→21:06)
[2025-06-30 08:47] VITALS: PULSE 67
[2025-06-30] MEDS: METOPROLOL SUCCINATE EXT REL 25 MG TABCR PO (08:47)
[2025-06-30] MEDS: OPTI-GEN TAB 1 TABLET PO (08:47)
[2025-06-30] MEDS: ENOXAPARIN 40 MG/0.4 ML SYRINGE SUB-Q (08:47)
--- NOTE | 2025-06-30 10:19 | PM.IMPN ---
Progress Note: A&P Assessment and Plan (1) Abdominal pain: Qualifiers: Abdominal location: generalized Qualified Code(s): R10.84 - Generalized abdominal pain Code(s): R10.9 - Unspecified abdominal pain Status: Inactive Assessment and Plan: Abdomen pelvis CT with contrast showed small to moderate amount of stool extends to the cecum with less stool in the rectum, anal rectal changes with acute inflammatory or infectious process not excluded. management of constipation as below patient has been following with GI due to diarrhea and new onset rectal bleeding. Notes reviewed - last seen 06/02/25 which notes history of abnormal CT of the rectum an elevated fecal calprotectin, diarrhea and rectal bleeding. At one point there was concern for C diff for which she completed short course of vancomycin and diarrhea improved. Also recently treated for E coli diarrhea (stool PCR+ 05/29). Per notes, planned to undergo flexible sigmoidoscopy for further evaluation if CT showed continued rectal wall thickening. consult GI, appreciate recs no indication for endoscopic procedures at this time IV Zosyn discontinued after GI consulted Infectious Disease (2) Constipation: Qualifiers: Constipation type: unspecified constipation type Qualified Code(s): K59.00 - Constipation, unspecified Code(s): K59.00 - Constipation, unspecified Status: Acute Assessment and Plan: Patient presents with abdominal pain ongoing for 1 week. Patient recently had a fecal impaction on 06/15 treated with an enema. Had diarrhea on Friday, no BM since. Decreased p.o. intake over the past week. Abdomen pelvis CT with contrast showed small to moderate amount of stool extends to the cecum with less stool in the rectum, anal rectal changes with acute inflammatory or infectious process not excluded. soapsuds enema x1 overnight Continue Miralax daily and monitor for diarrhea recurrence. If diarrhea recurs, stop bowel regimen and order stool studies. Endorses multiple bowel movements overnight/in the AM (3) Urinary tract infection: Qualifiers: Hematuria presence: without hematuria Urinary tract infection type: acute cystitis Qualified Code(s): N30.00 - Acute cystitis without hematuria Code(s): N39.0 - Urinary tract infection, site not specified Status: Acute Assessment and Plan: Patient does not complain of UTI symptoms, only had mild confusion on admission and abdominal pain as above UA with 1+ protein, trace ketones, positive nitrate, 1+ bilirubin, 2+ leukocyte esterase, 6-10 RBC, 21-50 WBC, 1+ bacteria afebrile, no leukocytosis previous micro reviewed - history of E coli with resistance started on Zosyn, to cover both GI inflammation and UTI, on 06/27 ID declares asymptomatic Gram-negative bacteriuria and discontinued IV Zosyn Infectious disease also signed off the case urine culture shows growth of Citrobacter koseri and E coli, limited susceptibility -continue on meropenem (4) VIDHYA (acute kidney injury): Code(s): N17.9 - Acute kidney failure, unspecified Status: Acute Assessment and Plan: Creatinine 1.7 on admission. Patient has had decreased p.o. intake recently. Creatinine on 06/15 was 0.7. NS at 100 started on 06/27, Cr improved to 0.87 trend renal function Creatinine continues to decrease (1.17 -> 0.62) (5) Dysphagia: Code(s): R13.10 - Dysphagia, unspecified Status: Chronic Assessment and Plan: Modified barium swallow shows aspiration with thin liquids speech therapy recommending regular textured food, moderately thickened level 3 liquids no straw only cup with an extra swallow after each drink (6) Failure to thrive: Status: Ruled-out Assessment and Plan: very poor p.o. intake for at least 1 week IV fluid switch to D5W/half-normal saline due to low blood sugars dietitian consulted nursing also noted coughing with eating, speech consulted Modified barium swallow shows patient requires moderately thickened liquids from a cup with extra swallowing no straws Constipation/fecal impaction was causing nausea and diminished desire to eat or drink (7) Hemorrhoids: Qualifiers: Hemorrhoid type: unspecified Qualified Code(s): K64.9 - Unspecified hemorrhoids Code(s): K64.9 - Unspecified hemorrhoids Status: Chronic Assessment and Plan: External hemorrhoids noted on exam. continue topical hydrocortisone, Tucks pads No severe thrombosed hemorrhoids though they do appear moderately irritated Avoid opioid pain medications due to constipation and fecal impaction (8) Essential (primary) hypertension: Code(s): I10 - Essential (primary) hypertension Status: Chronic Assessment and Plan: Continue lisinopril, metoprolol resume medications that were on hold due to NPO status (9) Dyslipidemia: Code(s): E78.5 - Hyperlipidemia, unspecified Status: Chronic Assessment and Plan: Continue atorvastatin (10) Type 2 diabetes mellitus: Code(s): E11.9 - Type 2 diabetes mellitus without complications Status: Chronic Assessment and Plan: hypoglycemia protocol POC blood glucose ACHS home medication: None Low-dose sliding scale A1C 6.2 on 04/07/2025 Glucose improved, diet ordered (11) Hypokalemia: Code(s): E87.6 - Hypokalemia Status: Acute Assessment and Plan: potassium 3.2 PO replacement ordered recheck in AM Potassium 3.7 Plan DVT prophylaxis: SCDs and Lovenox Code status: DNR Dispo: To be determined, PT OT and speech therapy will recommending 3-5 days treatment per week for 2 weeks Subjective Date/time seen: 06/30/25 10:19 Interval history: 84-year-old female patient admitted to the hospital for abdominal pain with constipation nausea and severe weakness. She has not been able to eat or drink at home and getting weaker over the past 1 week. On admission there was concern about patient choking on her intake. There was also concern for fecal impaction she. 06/30/2025 Patient sitting comfortably in bed at time of exam. Denies any chest pain, SOB, n/v or abd pain. Constipation seems to have relieved with the passage of multiple bowel movements overnight and in the AM. MBS showed aspiration on thin sequences, recommends regular food with moderately thickened liquids. PT/OT recommending SNF - working with CC regarding placement. Review of Systems Review of Systems: All systems reviewed & are unremarkable except as noted in HPI and below Exam Narrative: General: chronically ill-appearing, appears deconditioned Eyes: EOMI ENT: neck supple Cardiovascular: Regular rate and rhythm Respiratory: Clear to auscultation, respirations even and unlabored on RA Gastrointestinal: Soft, mild LLQ tenderness without rebound or guarding. Genitourinary: no suprapubic tenderness Musculoskeletal: No edema Skin: warm, dry Neuro: Alert and oriented x3-4. Psych: Mood appropriate Objective Data Vital Signs Vital Signs: Vital Signs - 24 hr 06/29/25 15:04 06/29/25 15:28 06/29/25 20:50 Temperature 97.4 F L 98.2 F Pulse Rate 92 96 62 Respiratory Rate 16 16 Blood Pressure 174/88 H 178/95 H Pulse Oximetry 97 97 Oxygen Delivery 06/29/25 23:00 06/30/25 04:47 06/30/25 08:45 Temperature 97.8 F Pulse Rate 67 Respiratory Rate 16 Blood Pressure 160/90 H 168/92 H Pulse Oximetry 96 Oxygen Delivery Room Air 06/30/25 08:47 Temperature Pulse Rate 67 Respiratory Rate Blood Pressure Pulse Oximetry Oxygen Delivery Intake/Output Intake/Output: Intake & Output 06/27/25 06/28/25 06/29/25 06/30/25 23:59 23:59 23:59 23:59 Intake Total 100 2594.7 410 190 Output Total 600 Balance 100 1994.7 410 190 Meds/Results Medications: Active Medications Generic Name Dose Route Start Last Admin Trade Name Freq PRN Reason Stop Dose Admin Acetaminophen 650 mg 06/27/25 16:49 Acetaminophen 325 Mg Tablet PO Q4H PRN Mild Pain (1-3) or Fever Atorvastatin Calcium 40 mg 06/28/25 21:00 06/29/25 20:49 Atorvastatin 40 Mg Tablet PO 40 mg QHS ILA Administration Dextrose 12.5 gm 06/28/25 00:55 Dextrose 50% 25 Gm/50 Ml Syringe IV PUSH PRN PRN Hypoglycemia Protocol Dicyclomine HCl 10 mg 06/28/25 17:52 Dicyclomine Hcl 10 Mg Capsule PO TID PRN Abdominal Cramping Duloxetine HCl 60 mg 06/28/25 09:00 06/30/25 08:46 Duloxetine Hcl 60 Mg Capsule.Dr PO 60 mg DAILY ILA Administration Enoxaparin Sodium 40 mg 06/29/25 09:00 06/30/25 08:47 Enoxaparin 40 Mg/0.4 Ml Syringe SUB-Q 40 mg DAILY ILA Administration Glucagon 1 mg 06/28/25 00:55 Glucagon For Inj 1 Mg Vial IM PRN PRN Hypoglycemia Protocol Glucose 15 gm 06/28/25 00:55 Glucose Oral Gel 15 Gm Of Glucse In 37.5 Gm Tube PO PRN PRN Hypoglycemia Protocol Hydrocortisone 1 applic 06/28/25 00:30 06/28/25 17:44 Hydrocortisone 1% 30 Gm Cream TOPICAL 1 applic Q6H PRN Administration Hemorrhoids Dextrose 1,000 mls @ 100 mls/hr 06/28/25 00:55 Dextrose 5% 1,000 Ml IVPB PRN PRN Hypoglycemia Protocol Meropenem 1 gm/ Sodium 100 mls @ 200 mls/hr 06/30/25 00:00 06/30/25 00:45 Chloride IVPB Infused Q12H [facility] Infusion Insulin Aspart 2 - 5 units 06/28/25 08:00 06/30/25 08:18 Insulin Aspart (*Bkc) 100 Units/Ml SUB-Q Not Given TIDWM [facility] Protocol Lidocaine HCl 10 ml 06/29/25 12:29 Lidocaine 2% Gel Urojet 10 Ml Pkg XX Q6H PRN Pain with enemas Linaclotide 145 mcg 06/30/25 06:30 06/30/25 06:17 Linaclotide 145 Mcg Capsule PO 145 mcg DAILY@0630 [facility] Administration Lisinopril 40 mg 06/28/25 09:00 06/30/25 08:46 Lisinopril 20 Mg Tablet PO 40 mg DAILY ILA Administration Metoprolol Succinate 25 mg 06/28/25 09:00 06/30/25 08:47 Metoprolol Succinate Ext Rel 25 Mg Tabcr PO 25 mg DAILY ILA Administration Multivitamins/Minerals 1 tablet 06/28/25 09:00 06/30/25 08:47 Opti-Gen Tab PO 1 tablet DAILY [facility] Administration Pantoprazole Sodium 40 mg 06/28/25 09:00 06/30/25 08:46 Pantoprazole 40 Mg Tablet PO 40 mg Q12HR [facility] Administration Polyethylene Glycol 17 gm 06/29/25 09:00 06/30/25 08:51 Polyethylene Glycol 3350 17 Gm Powd.Pack PO Not Given QAM [facility] Prednisone 5 mg 06/28/25 08:00 06/30/25 08:47 Prednisone 5 Mg Tablet PO 5 mg BIDWM [facility] Administration Witch Saranya 1 pad 06/28/25 10:36 Witch [place] 40 Pads TOPICAL PRN PRN Perineal Discomfort Radiology Results: ITS Impressions Abdomen/Pelvis CT 06/27/25 16:10 IMPRESSION: 1. Anorectal changes with acute inflammatory or infectious process not excluded. 2. Other chronic appearing findings. Chest X-Ray 06/29/25 07:27 IMPRESSION: 1. Interstitial pulmonary edema. Modified Barium Swallow 06/29/25 14:14 IMPRESSION: Aspiration was observed on thin sequences. See speech therapist's report for complete evaluation. Labs Labs: Laboratory Results - last 24 hr 06/29/25 06/29/25 06/29/25 12:10 17:31 21:02 WBC RBC Hgb Hct MCV MCH MCHC RDW Plt Count MPV Immature Gran % (Auto) Neut % (Auto) Lymph % (Auto) [place] % (Auto) Eos % (Auto) Baso % (Auto) Lymph # (Auto) [place] # (Auto) Eos # (Auto) Baso # (Auto) Abs Immat Gran (auto) Absolute Neuts (auto) Absolute Nucleated RBC Nucleated RBC % Sodium Potassium Chloride Carbon Dioxide Anion Gap BUN Creatinine Estim Creat Clear Calc Estimated GFR Glucose POC Capillary Glucose 82 93 147 H Calcium Total Bilirubin AST ALT Alkaline Phosphatase Total Protein Albumin 06/30/25 06/30/25 04:35 08:09 WBC 4.1 L RBC 3.73 L Hgb 11.1 L Hct 34.9 L MCV 93.6 MCH 29.8 MCHC 31.8 L RDW 16.5 H Plt Count 148 L MPV 9.6 Immature Gran % (Auto) 0.2 Neut % (Auto) 67.8 Lymph % (Auto) 21.3 [place] % (Auto) 10.0 H Eos % (Auto) 0.0 Baso % (Auto) 0.7 Lymph # (Auto) 0.87 L [place] # (Auto) 0.4 Eos # (Auto) 0.0 Baso # (Auto) 0.0 Abs Immat Gran (auto) 0.01 Absolute Neuts (auto) 2.8 Absolute Nucleated RBC 0.000 Nucleated RBC % 0.0 Sodium 145 Potassium 3.7 Chloride 118 H Carbon Dioxide 23 Anion Gap 4 BUN 22 H D Creatinine 0.62 L Estim Creat Clear Calc 47 Estimated GFR > 60 Glucose 97 POC Capillary Glucose 91 Calcium 8.8 Total Bilirubin 0.7 AST 54 H ALT 35 Alkaline Phosphatase 272 H Total Protein 5.2 L Albumin 2.6 L Quality VTE Prophylaxis VTE prophylaxis: pharmacologic ordered (Lovenox)
[2025-06-30] MEDS: MEROPENEM 1 GM in SODIUM CHLORIDE 0.9% IV 100 ML 150 ML IVPB (11:40)
[2025-06-30 14:00] VITALS: BP 148/78; PULSE 72; RESP 16; TEMP 36.2; O2SAT 94
[2025-06-30] MEDS: ATORVASTATIN 40 MG TABLET PO (21:06)
[2025-06-30 21:40] VITALS: BP 155/91; PULSE 81; RESP 12; TEMP 36.2; O2SAT 94
[2025-07-01 05:32] LABS: Hematocrit 36.6 % (37.0-47.0); Hemoglobin 11.4 g/dL (12.0-15.0); Immature Granulocyte Percent A 0.3 % (0-0.5); Lymphocytes Absolute Auto 0.77 K/mm3 (0.9-3.2); Mean Corpuscular HGB Conc 31.1 g/dl (32-36); Mean Corpuscular Hemoglobin 29.5 pg (26-34); Mean Corpuscular Volume 94.6 fl (80-100); Nucleated Red Blood Cells Absolute Auto 0.000 K/mm3 (0.0-0.012); Nucleated Red Blood Cells Perc 0.0 % (0.0-0.2); Platelet Count Result 135 k/mm3 (150-375); Red Blood Count 3.87 M/mm3 (4.2-5.4); White Blood Count 3.5 K/mm3 (4.5-10.0)
[2025-07-01 05:55] LABS: Alanine Aminotransferase 39 U/L (6-35); Albumin Level 2.6 g/dL (3.5-5.1); Alkaline Phosphatase 260 U/L (38-126); Anion Gap 3 mmol/L (4-12); Aspartate Amino Transferase 56 U/L (14-36); Bilirubin,Total 0.7 mg/dL (0.2-1.3); Blood Urea Nitrogen 17 mg/dL (7-17); Calcium 8.8 mg/dL (8.4-10.2); Carbon Dioxide 26 mmol/L (22-30); Chloride 113 mmol/L (98-107); Estimated CRCL calculation 46 ml/min; Estimated Glomerular Filt Rate > 60; Glucose 94 mg/dL (65-110); Potassium 3.9 mmol/L (3.4-5.0); Sodium 142 mmol/L (137-145); Total Protein 5.2 g/dL (6.3-8.2)
[2025-07-01 06:00] VITALS: BP 154/82; PULSE 77; RESP 20; TEMP 36.4; O2SAT 96
[2025-07-01] MEDS: LINACLOTIDE 145 MCG CAPSULE PO (06:11)
--- NOTE | 2025-07-01 07:11 | P.PNIM_ITS ---
Progress Note: A&P Assessment and Plan (1) Abdominal pain: Qualifiers: Abdominal location: generalized Qualified Code(s): R10.84 - Generalized abdominal pain Code(s): R10.9 - Unspecified abdominal pain Status: Inactive Assessment and Plan: * Abdomen pelvis CT with contrast showed small to moderate amount of stool extends to the cecum with less stool in the rectum, anal rectal changes with acute inflammatory or infectious process not excluded. * management of constipation as below * patient has been following with GI due to diarrhea and new onset rectal bleeding. Notes reviewed - last seen 06/02/25 which notes history of abnormal CT of the rectum an elevated fecal calprotectin, diarrhea and rectal bleeding. At one point there was concern for C diff for which she completed short course of vancomycin and diarrhea improved. Also recently treated for E coli diarrhea (stool PCR+ 05/29). Per notes, planned to undergo flexible sigmoidoscopy for further evaluation if CT showed continued rectal wall thickening. * consult GI, appreciate recs * no indication for endoscopic procedures at this time * IV Zosyn discontinued after GI consulted Infectious Disease (2) Constipation: Qualifiers: Constipation type: unspecified constipation type Qualified Code(s): K59.00 - Constipation, unspecified Code(s): K59.00 - Constipation, unspecified Status: Acute Assessment and Plan: * Patient presents with abdominal pain ongoing for 1 week. Patient recently had a fecal impaction on 06/15 treated with an enema. Had diarrhea on Friday, no BM since. Decreased p.o. intake over the past week. * Abdomen pelvis CT with contrast showed small to moderate amount of stool extends to the cecum with less stool in the rectum, anal rectal changes with acute inflammatory or infectious process not excluded. * soapsuds enema x1 overnight * Continue Miralax daily and monitor for diarrhea recurrence. If diarrhea recurs, stop bowel regimen and order stool studies. * Continues to endorse bowel movements throughout the day (3) Urinary tract infection: Qualifiers: Hematuria presence: without hematuria Urinary tract infection type: acute cystitis Qualified Code(s): N30.00 - Acute cystitis without hematuria Code(s): N39.0 - Urinary tract infection, site not specified Status: Acute Assessment and Plan: * Patient does not complain of UTI symptoms, only had mild confusion on admission and abdominal pain as above * UA with 1+ protein, trace ketones, positive nitrate, 1+ bilirubin, 2+ leukocyte esterase, 6-10 RBC, 21-50 WBC, 1+ bacteria * afebrile, no leukocytosis * previous micro reviewed - history of E coli with resistance * started on Zosyn, to cover both GI inflammation and UTI, on 06/27 * ID declares asymptomatic Gram-negative bacteriuria and discontinued IV Zosyn * Infectious disease also signed off the case * urine culture shows growth of Citrobacter koseri and E coli, limited susceptibility -continue on meropenem (4) VIDHYA (acute kidney injury): Code(s): N17.9 - Acute kidney failure, unspecified Status: Resolved Assessment and Plan: * Creatinine 1.7 on admission. Patient has had decreased p.o. intake recently. Creatinine on 06/15 was 0.7. * NS at 100 started on 06/27, Cr improved to 0.87 * trend renal function * Kidney function stable (5) Dysphagia: Code(s): R13.10 - Dysphagia, unspecified Status: Chronic Assessment and Plan: * Modified barium swallow shows aspiration with thin liquids * speech therapy recommending regular textured food, moderately thickened level 3 liquids no straw only cup with an extra swallow after each drink (6) Failure to thrive: Status: Ruled-out Assessment and Plan: * very poor p.o. intake for at least 1 week * IV fluid switch to D5W/half-normal saline due to low blood sugars * dietitian consulted * nursing also noted coughing with eating, speech consulted * Modified barium swallow shows patient requires moderately thickened liquids from a cup with extra swallowing no straws Constipation/fecal impaction was causing nausea and diminished desire to eat or drink (7) Hemorrhoids: Qualifiers: Hemorrhoid type: unspecified Qualified Code(s): K64.9 - Unspecified hemorrhoids Code(s): K64.9 - Unspecified hemorrhoids Status: Chronic Assessment and Plan: * External hemorrhoids noted on exam. * continue topical hydrocortisone, Tucks pads * No severe thrombosed hemorrhoids though they do appear moderately irritated Avoid opioid pain medications due to constipation and fecal impaction (8) Essential (primary) hypertension: Code(s): I10 - Essential (primary) hypertension Status: Chronic Assessment and Plan: * Continue lisinopril, metoprolol * resume medications that were on hold due to NPO status (9) Dyslipidemia: Code(s): E78.5 - Hyperlipidemia, unspecified Status: Chronic Assessment and Plan: * Continue atorvastatin (10) Type 2 diabetes mellitus: Code(s): E11.9 - Type 2 diabetes mellitus without complications Status: Chronic Assessment and Plan: * hypoglycemia protocol * POC blood glucose ACHS * home medication: None * Low-dose sliding scale * A1C 6.2 on 04/07/2025 * Glucose improved, diet ordered (11) Hypokalemia: Code(s): E87.6 - Hypokalemia Status: Acute Assessment and Plan: * potassium 3.2 * PO replacement ordered * recheck in AM * Potassium 3.9 Plan DVT prophylaxis: SCDs and Lovenox Code status: DNR Dispo: To be determined, PT OT and speech therapy will recommending 3-5 days treatment per week for 2 weeks Subjective Date/time seen: 07/01/25 07:11 Interval history: 84-year-old female patient admitted to the hospital for abdominal pain with constipation nausea and severe weakness. She has not been able to eat or drink at home and getting weaker over the past 1 week. On admission there was concern about patient choking on her intake. There was also concern for fecal impaction she. 07/01/2025 Patient sitting comfortably in bed at time of exam. No acute overnight events. Patient is feeling well today. Remains afebrile without leukocytosis. Pending acceptance at [facility]. Review of Systems Review of Systems: All systems reviewed & are unremarkable except as noted in HPI and below Exam Narrative: General: chronically ill-appearing, appears deconditioned Eyes: EOMI ENT: neck supple Cardiovascular: Regular rate and rhythm Respiratory: Clear to auscultation, respirations even and unlabored on RA Gastrointestinal: Soft, mild LLQ tenderness without rebound or guarding. Genitourinary: no suprapubic tenderness Musculoskeletal: No edema Skin: warm, dry Neuro: Alert and oriented x3-4. Psych: Mood appropriate Objective Data Vital Signs Vital Signs: Vital Signs - 24 hr 06/30/25 08:45 06/30/25 08:47 06/30/25 14:00 Temperature 97.2 F L Pulse Rate 67 72 Respiratory Rate 16 Blood Pressure 148/78 H Pulse Oximetry 94 Oxygen Delivery Room Air 06/30/25 21:40 07/01/25 06:00 Temperature 97.2 F L 97.6 F Pulse Rate 81 77 Respiratory Rate 12 20 Blood Pressure 155/91 H 154/82 H Pulse Oximetry 94 96 Oxygen Delivery Intake/Output Intake/Output: Intake & Output 06/28/25 06/29/25 06/30/25 07/01/25 23:59 23:59 23:59 23:59 Intake Total 2594.7 410 860 Output Total 600 Balance 1994.7 410 860 Meds/Results Medications: Active Medications Generic Name Dose Route Start Last Admin Trade Name Freq PRN Reason Stop Dose Admin Acetaminophen 650 mg 06/27/25 16:49 Acetaminophen 325 Mg Tablet PO Q4H PRN Mild Pain (1-3) or Fever Atorvastatin Calcium 40 mg 06/28/25 21:00 06/30/25 21:06 Atorvastatin 40 Mg Tablet PO 40 mg QHS ILA Administration Dextrose 12.5 gm 06/28/25 00:55 Dextrose 50% 25 Gm/50 Ml Syringe IV PUSH PRN PRN Hypoglycemia Protocol Dicyclomine HCl 10 mg 06/28/25 17:52 Dicyclomine Hcl 10 Mg Capsule PO TID PRN Abdominal Cramping Duloxetine HCl 60 mg 06/28/25 09:00 06/30/25 08:46 Duloxetine Hcl 60 Mg Capsule.Dr PO 60 mg DAILY ILA Administration Enoxaparin Sodium 40 mg 06/29/25 09:00 06/30/25 08:47 Enoxaparin 40 Mg/0.4 Ml Syringe SUB-Q 40 mg DAILY ILA Administration Glucagon 1 mg 06/28/25 00:55 Glucagon For Inj 1 Mg Vial IM PRN PRN Hypoglycemia Protocol Glucose 15 gm 06/28/25 00:55 Glucose Oral Gel 15 Gm Of Glucse In 37.5 Gm Tube PO PRN PRN Hypoglycemia Protocol Hydrocortisone 1 applic 06/28/25 00:30 06/28/25 17:44 Hydrocortisone 1% 30 Gm Cream TOPICAL 1 applic Q6H PRN Administration Hemorrhoids Dextrose 1,000 mls @ 100 mls/hr 06/28/25 00:55 Dextrose 5% 1,000 Ml IVPB PRN PRN Hypoglycemia Protocol Meropenem 1 gm/ Sodium 100 mls @ 200 mls/hr 06/30/25 00:00 06/30/25 23:58 Chloride IVPB 200 mls/hr Q12H ILA Administration Insulin Aspart 2 - 5 units 06/28/25 08:00 06/30/25 16:29 Insulin Aspart (*Bkc) 100 Units/Ml SUB-Q Not Given TIDWM [facility] Protocol Lidocaine HCl 10 ml 06/29/25 12:29 Lidocaine 2% Gel Urojet 10 Ml Pkg XX Q6H PRN Pain with enemas Linaclotide 145 mcg 06/30/25 06:30 07/01/25 06:11 Linaclotide 145 Mcg Capsule PO 145 mcg DAILY@0630 IAL Administration Lisinopril 40 mg 06/28/25 09:00 06/30/25 08:46 Lisinopril 20 Mg Tablet PO 40 mg DAILY ILA Administration Metoprolol Succinate 25 mg 06/28/25 09:00 06/30/25 08:47 Metoprolol Succinate Ext Rel 25 Mg Tabcr PO 25 mg DAILY ILA Administration Multivitamins/Minerals 1 tablet 06/28/25 09:00 06/30/25 08:47 Opti-Gen Tab PO 1 tablet DAILY ILA Administration Pantoprazole Sodium 40 mg 06/28/25 09:00 06/30/25 21:06 Pantoprazole 40 Mg Tablet PO 40 mg Q12HR ILA Administration Polyethylene Glycol 17 gm 06/29/25 09:00 06/30/25 08:51 Polyethylene Glycol 3350 17 Gm Powd.Pack PO Not Given QAM [facility] Prednisone 5 mg 06/28/25 08:00 06/30/25 17:30 Prednisone 5 Mg Tablet PO 5 mg BIDWM ILA Administration Witch Saranya 1 pad 06/28/25 10:36 Witch Saranya 40 Pads TOPICAL PRN PRN Perineal Discomfort Radiology Results: ITS Impressions Abdomen/Pelvis CT 06/27/25 16:10 IMPRESSION: 1. Anorectal changes with acute inflammatory or infectious process not excluded. 2. Other chronic appearing findings. Chest X-Ray 06/29/25 07:27 IMPRESSION: 1. Interstitial pulmonary edema. Modified Barium Swallow 06/29/25 14:14 IMPRESSION: Aspiration was observed on thin sequences. See speech therapist's report for complete evaluation. Labs Labs: Laboratory Results - last 24 hr 06/30/25 06/30/25 06/30/25 08:09 12:05 16:20 WBC RBC Hgb Hct MCV MCH MCHC RDW Plt Count MPV Immature Gran % (Auto) Neut % (Auto) Lymph % (Auto) [place] % (Auto) Eos % (Auto) Baso % (Auto) Lymph # (Auto) [place] # (Auto) Eos # (Auto) Baso # (Auto) Abs Immat Gran (auto) Absolute Neuts (auto) Absolute Nucleated RBC Nucleated RBC % Sodium Potassium Chloride Carbon Dioxide Anion Gap BUN Creatinine Estim Creat Clear Calc Estimated GFR Glucose POC Capillary Glucose 91 165 H 134 H Calcium Total Bilirubin AST ALT Alkaline Phosphatase Total Protein Albumin 06/30/25 07/01/25 21:38 05:01 WBC 3.5 L RBC 3.87 L Hgb 11.4 L Hct 36.6 L MCV 94.6 MCH 29.5 MCHC 31.1 L RDW 16.0 H Plt Count 135 L MPV 9.7 Immature Gran % (Auto) 0.3 Neut % (Auto) 65.8 Lymph % (Auto) 22.1 [place] % (Auto) 10.9 H Eos % (Auto) 0.0 Baso % (Auto) 0.9 Lymph # (Auto) 0.77 L [place] # (Auto) 0.4 Eos # (Auto) 0.0 Baso # (Auto) 0.0 Abs Immat Gran (auto) 0.01 Absolute Neuts (auto) 2.3 Absolute Nucleated RBC 0.000 Nucleated RBC % 0.0 Sodium 142 Potassium 3.9 Chloride 113 H Carbon Dioxide 26 Anion Gap 3 L BUN 17 Creatinine 0.63 L Estim Creat Clear Calc 46 Estimated GFR > 60 Glucose 94 POC Capillary Glucose 161 H Calcium 8.8 Total Bilirubin 0.7 AST 56 H ALT 39 H Alkaline Phosphatase 260 H Total Protein 5.2 L Albumin 2.6 L Quality VTE Prophylaxis VTE prophylaxis: pharmacologic ordered (Lovenox)
[2025-07-01] MEDS: PANTOPRAZOLE 40 MG TABLET PO ×2 (09:21→21:50)
[2025-07-01] MEDS: OPTI-GEN TAB 1 TABLET PO (09:21)
[2025-07-01] MEDS: DULoxetine HCL 60 MG CAPSULE.DR PO (09:21)
[2025-07-01 09:22] VITALS: PULSE 77
[2025-07-01] MEDS: ENOXAPARIN 40 MG/0.4 ML SYRINGE SUB-Q (09:22)
[2025-07-01] MEDS: METOPROLOL SUCCINATE EXT REL 25 MG TABCR PO (09:22)
--- NOTE | 2025-07-01 11:39 | PCNFU ---
Nutrition Follow-Up Complete: Moderate Protein Calorie Malnutrition as related to inadequate protein-energy intake in setting of acute disease (UTI) as evidenced by minimal oral intake for > 5 days; significant weight loss of 7 ibs (5%) in 13 days. Meet estimated nutritional needs - progressing with goal. Continue same goal Goal: Pt current nutrition is 2 gram sodium, moderately thickened L3 liquids. Ensure HP plus TID (350 kcal, 20 g protein) and nutritional ice cream BID (270 kcal, 9 g protein), . Nutrition recommendation: No new recommendations. Continue current nutrition care plan and orders. Agree with orders Last recorded weight is 61.8 kg. Bowel Motility: +2 BMs 07/01 Labs Reviewed: Hgb 11.4, Hct 36.6, Alb 2.6, Cre 0.63 Meds Noted: Protonix, prednisone, Linzess, novolog Skin: No pressure injuries Additional Notes: Intakes improving to 10-50%. Supplements are on. Continue to monitor. Agree with orders. Will monitor weight, labs, skin, diet orders, meds every 3 days.
[2025-07-01] MEDS: MEROPENEM 1 GM in SODIUM CHLORIDE 0.9% IV 100 ML 200 ML IVPB (12:20)
[2025-07-01 13:16] VITALS: BP 150/82; PULSE 74; RESP 18; TEMP 36.8; O2SAT 99
[2025-07-01 20:00] VITALS: PULSE 76; RESP 24; O2SAT 95
[2025-07-01 20:11] VITALS: BP 153/83; PULSE 76; RESP 24; TEMP 36.6; O2SAT 95
[2025-07-01] MEDS: ATORVASTATIN 40 MG TABLET PO (21:50)
[2025-07-02] MEDS: MEROPENEM 1 GM in SODIUM CHLORIDE 0.9% IV 100 ML 200 ML IVPB ×2 (00:02→12:16)
[2025-07-02 04:55] VITALS: BP 156/99; PULSE 81; RESP 20; TEMP 36.4; O2SAT 94
[2025-07-02] MEDS: LINACLOTIDE 145 MCG CAPSULE PO (06:19)
[2025-07-02 07:33] LABS: Hematocrit 36.7 % (37.0-47.0); Hemoglobin 11.7 g/dL (12.0-15.0); Immature Granulocyte Percent A 0.4 % (0-0.5); Lymphocytes Absolute Auto 1.25 K/mm3 (0.9-3.2); Mean Corpuscular HGB Conc 31.9 g/dl (32-36); Mean Corpuscular Hemoglobin 29.4 pg (26-34); Mean Corpuscular Volume 92.2 fl (80-100); Nucleated Red Blood Cells Absolute Auto 0.000 K/mm3 (0.0-0.012); Nucleated Red Blood Cells Perc 0.0 % (0.0-0.2); Platelet Count Result 137 k/mm3 (150-375); Red Blood Count 3.98 M/mm3 (4.2-5.4); White Blood Count 4.5 K/mm3 (4.5-10.0)
[2025-07-02 07:46] LABS: Alanine Aminotransferase 39 U/L (6-35); Albumin Level 2.8 g/dL (3.5-5.1); Alkaline Phosphatase 264 U/L (38-126); Anion Gap 4 mmol/L (4-12); Aspartate Amino Transferase 58 U/L (14-36); Bilirubin,Total 0.8 mg/dL (0.2-1.3); Blood Urea Nitrogen 15 mg/dL (7-17); Calcium 9.0 mg/dL (8.4-10.2); Carbon Dioxide 25 mmol/L (22-30); Chloride 108 mmol/L (98-107); Estimated CRCL calculation 48 ml/min; Estimated Glomerular Filt Rate > 60; Glucose 70 mg/dL (65-110); Potassium 3.6 mmol/L (3.4-5.0); Sodium 137 mmol/L (137-145); Total Protein 5.3 g/dL (6.3-8.2)
[2025-07-02] MEDS: ENOXAPARIN 40 MG/0.4 ML SYRINGE SUB-Q (09:01)
[2025-07-02] MEDS: DULoxetine HCL 60 MG CAPSULE.DR PO (09:01)
[2025-07-02] MEDS: OPTI-GEN TAB 1 TABLET PO (09:01)
[2025-07-02] MEDS: PANTOPRAZOLE 40 MG TABLET PO ×2 (09:01→21:06)
[2025-07-02 09:04] VITALS: PULSE 90
[2025-07-02] MEDS: METOPROLOL SUCCINATE EXT REL 25 MG TABCR PO (09:04)
--- NOTE | 2025-07-02 11:46 | P.PNIM_ITS ---
Progress Note: A&P Assessment and Plan (1) Abdominal pain: Qualifiers: Abdominal location: generalized Qualified Code(s): R10.84 - Generalized abdominal pain Code(s): R10.9 - Unspecified abdominal pain Status: Inactive Assessment and Plan: * Abdomen pelvis CT with contrast showed small to moderate amount of stool extends to the cecum with less stool in the rectum, anal rectal changes with acute inflammatory or infectious process not excluded. * management of constipation as below * patient has been following with GI due to diarrhea and new onset rectal bleeding. Notes reviewed - last seen 06/02/25 which notes history of abnormal CT of the rectum an elevated fecal calprotectin, diarrhea and rectal bleeding. At one point there was concern for C diff for which she completed short course of vancomycin and diarrhea improved. Also recently treated for E coli diarrhea (stool PCR+ 05/29). Per notes, planned to undergo flexible sigmoidoscopy for further evaluation if CT showed continued rectal wall thickening. * consult GI, appreciate recs * no indication for endoscopic procedures at this time * IV Zosyn discontinued after GI consulted Infectious Disease * Abd pain has subsided at this time (2) Constipation: Qualifiers: Constipation type: unspecified constipation type Qualified Code(s): K59.00 - Constipation, unspecified Code(s): K59.00 - Constipation, unspecified Status: Acute Assessment and Plan: * Patient presents with abdominal pain ongoing for 1 week. Patient recently had a fecal impaction on 06/15 treated with an enema. Had diarrhea on Friday, no BM since. Decreased p.o. intake over the past week. * Abdomen pelvis CT with contrast showed small to moderate amount of stool extends to the cecum with less stool in the rectum, anal rectal changes with acute inflammatory or infectious process not excluded. * soapsuds enema x1 overnight * Continue Miralax daily and monitor for diarrhea recurrence. If diarrhea recurs, stop bowel regimen and order stool studies. * Continues to endorse bowel movements throughout the day (3) Urinary tract infection: Qualifiers: Urinary tract infection type: acute cystitis Hematuria presence: without hematuria Qualified Code(s): N30.00 - Acute cystitis without hematuria Code(s): N39.0 - Urinary tract infection, site not specified Status: Acute Assessment and Plan: * Patient does not complain of UTI symptoms, only had mild confusion on admission and abdominal pain as above * UA with 1+ protein, trace ketones, positive nitrate, 1+ bilirubin, 2+ leukocyte esterase, 6-10 RBC, 21-50 WBC, 1+ bacteria * afebrile, no leukocytosis * previous micro reviewed - history of E coli with resistance * started on Zosyn, to cover both GI inflammation and UTI, on 06/27 * ID declares asymptomatic Gram-negative bacteriuria and discontinued IV Zosyn * Infectious disease also signed off the case * urine culture shows growth of Citrobacter koseri and E coli, limited susceptibility -continue on meropenem (4) VIDHYA (acute kidney injury): Code(s): N17.9 - Acute kidney failure, unspecified Status: Resolved Assessment and Plan: * Creatinine 1.7 on admission. Patient has had decreased p.o. intake recently. Creatinine on 06/15 was 0.7. * NS at 100 started on 06/27, Cr improved to 0.87 * trend renal function * Kidney function stable (5) Dysphagia: Code(s): R13.10 - Dysphagia, unspecified Status: Chronic Assessment and Plan: * Modified barium swallow shows aspiration with thin liquids * speech therapy recommending regular textured food, moderately thickened level 3 liquids no straw only cup with an extra swallow after each drink (6) Failure to thrive: Status: Ruled-out Assessment and Plan: * very poor p.o. intake for at least 1 week * IV fluid switch to D5W/half-normal saline due to low blood sugars * dietitian consulted * nursing also noted coughing with eating, speech consulted * Modified barium swallow shows patient requires moderately thickened liquids from a cup with extra swallowing no straws Constipation/fecal impaction was causing nausea and diminished desire to eat or drink (7) Hemorrhoids: Qualifiers: Hemorrhoid type: unspecified Qualified Code(s): K64.9 - Unspecified hemorrhoids Code(s): K64.9 - Unspecified hemorrhoids Status: Chronic Assessment and Plan: * External hemorrhoids noted on exam. * continue topical hydrocortisone, Tucks pads * No severe thrombosed hemorrhoids though they do appear moderately irritated Avoid opioid pain medications due to constipation and fecal impaction (8) Essential (primary) hypertension: Code(s): I10 - Essential (primary) hypertension Status: Chronic Assessment and Plan: * Continue lisinopril, metoprolol * resume medications that were on hold due to NPO status (9) Dyslipidemia: Code(s): E78.5 - Hyperlipidemia, unspecified Status: Chronic Assessment and Plan: * Continue atorvastatin (10) Type 2 diabetes mellitus: Code(s): E11.9 - Type 2 diabetes mellitus without complications Status: Chronic Assessment and Plan: * hypoglycemia protocol * POC blood glucose ACHS * home medication: None * Low-dose sliding scale * A1C 6.2 on 04/07/2025 * Glucose improved, diet ordered (11) Hypokalemia: Code(s): E87.6 - Hypokalemia Status: Acute Assessment and Plan: * potassium 3.2 * PO replacement ordered * recheck in AM * Potassium 3.9 Plan DVT prophylaxis: SCDs and Lovenox Code status: DNR Dispo: To be determined, PT OT and speech therapy will recommending 3-5 days treatment per week for 2 weeks Subjective Date/time seen: 07/02/25 11:46 Interval history: 84-year-old female patient admitted to the hospital for abdominal pain with constipation nausea and severe weakness. She has not been able to eat or drink at home and getting weaker over the past 1 week. On admission there was concern about patient choking on her intake. There was also concern for fecal impaction she. 07/02/2025 Patient sitting comfortably in bed at time of exam. No acute overnight events. Patient is feeling well today. Remains afebrile without leukocytosis. Still waiting auth from [facility]. Review of Systems Review of Systems: All systems reviewed & are unremarkable except as noted in HPI and below Exam Narrative: General: chronically ill-appearing, appears deconditioned Eyes: EOMI ENT: neck supple Cardiovascular: Regular rate and rhythm Respiratory: Clear to auscultation, respirations even and unlabored on RA Gastrointestinal: Soft, mild LLQ tenderness without rebound or guarding. Genitourinary: no suprapubic tenderness Musculoskeletal: No edema Skin: warm, dry Neuro: Alert and oriented x3-4. Psych: Mood appropriate Objective Data Vital Signs Vital Signs: Vital Signs - 24 hr 07/01/25 13:16 07/01/25 20:00 07/01/25 20:11 Temperature 98.2 F 97.8 F Pulse Rate 74 76 76 Respiratory Rate 18 24 H 24 H Blood Pressure 150/82 H 153/83 H Pulse Oximetry 99 95 95 Oxygen Delivery Room Air 07/02/25 04:55 07/02/25 09:04 Temperature 97.6 F Pulse Rate 81 90 Respiratory Rate 20 Blood Pressure 156/99 H Pulse Oximetry 94 Oxygen Delivery Intake/Output Intake/Output: Intake & Output 06/29/25 06/30/25 07/01/25 07/02/25 23:59 23:59 23:59 23:59 Intake Total 343 733 9025 640 Output Total 400 Balance 499 213 7122 640 Meds/Results Medications: Active Medications Generic Name Dose Route Start Last Admin Trade Name Freq PRN Reason Stop Dose Admin Acetaminophen 650 mg 06/27/25 16:49 Acetaminophen 325 Mg Tablet PO Q4H PRN Mild Pain (1-3) or Fever Atorvastatin Calcium 40 mg 06/28/25 21:00 07/01/25 21:50 Atorvastatin 40 Mg Tablet PO 40 mg QHS ILA Administration Dextrose 12.5 gm 06/28/25 00:55 Dextrose 50% 25 Gm/50 Ml Syringe IV PUSH PRN PRN Hypoglycemia Protocol Dicyclomine HCl 10 mg 06/28/25 17:52 Dicyclomine Hcl 10 Mg Capsule PO TID PRN Abdominal Cramping Duloxetine HCl 60 mg 06/28/25 09:00 07/02/25 09:01 Duloxetine Hcl 60 Mg Capsule.Dr PO 60 mg DAILY ILA Administration Enoxaparin Sodium 40 mg 06/29/25 09:00 07/02/25 09:01 Enoxaparin 40 Mg/0.4 Ml Syringe SUB-Q 40 mg DAILY ILA Administration Glucagon 1 mg 06/28/25 00:55 Glucagon For Inj 1 Mg Vial IM PRN PRN Hypoglycemia Protocol Glucose 15 gm 06/28/25 00:55 Glucose Oral Gel 15 Gm Of Glucse In 37.5 Gm Tube PO PRN PRN Hypoglycemia Protocol Hydrocortisone 1 applic 06/28/25 00:30 06/28/25 17:44 Hydrocortisone 1% 30 Gm Cream TOPICAL 1 applic Q6H PRN Administration Hemorrhoids Dextrose 1,000 mls @ 100 mls/hr 06/28/25 00:55 Dextrose 5% 1,000 Ml IVPB PRN PRN Hypoglycemia Protocol Meropenem 1 gm/ Sodium 100 mls @ 200 mls/hr 06/30/25 00:00 07/02/25 00:32 Chloride IVPB Infused Q12H ILA Infusion Insulin Aspart 2 - 5 units 06/28/25 08:00 07/02/25 09:00 Insulin Aspart (*Bkc) 100 Units/Ml SUB-Q Not Given TIDWM [facility] Protocol Lidocaine HCl 10 ml 06/29/25 12:29 Lidocaine 2% Gel Urojet 10 Ml Pkg XX Q6H PRN Pain with enemas Linaclotide 145 mcg 06/30/25 06:30 07/02/25 06:19 Linaclotide 145 Mcg Capsule PO 145 mcg DAILY@0630 ILA Administration Lisinopril 40 mg 06/28/25 09:00 07/02/25 09:01 Lisinopril 20 Mg Tablet PO 40 mg DAILY ILA Administration Metoprolol Succinate 25 mg 06/28/25 09:00 07/02/25 09:04 Metoprolol Succinate Ext Rel 25 Mg Tabcr PO 25 mg DAILY ILA Administration Multivitamins/Minerals 1 tablet 06/28/25 09:00 07/02/25 09:01 Opti-Gen Tab PO 1 tablet DAILY ILA Administration Pantoprazole Sodium 40 mg 06/28/25 09:00 07/02/25 09:01 Pantoprazole 40 Mg Tablet PO 40 mg Q12HR ILA Administration Polyethylene Glycol 17 gm 06/29/25 09:00 07/02/25 09:01 Polyethylene Glycol 3350 17 Gm Powd.Pack PO 17 gm QAM ILA Administration Prednisone 5 mg 06/28/25 08:00 07/02/25 09:00 Prednisone 5 Mg Tablet PO 5 mg BIDWM ILA Administration Witch Saranya 1 pad 06/28/25 10:36 Witch Saranya 40 Pads TOPICAL PRN PRN Perineal Discomfort Radiology Results: ITS Impressions Abdomen/Pelvis CT 06/27/25 16:10 IMPRESSION: 1. Anorectal changes with acute inflammatory or infectious process not excluded. 2. Other chronic appearing findings. Chest X-Ray 06/29/25 07:27 IMPRESSION: 1. Interstitial pulmonary edema. Modified Barium Swallow 06/29/25 14:14 IMPRESSION: Aspiration was observed on thin sequences. See speech therapist's report for complete evaluation. Labs Labs: Laboratory Results - last 24 hr 07/01/25 07/01/25 07/02/25 16:46 20:07 07:28 WBC 4.5 RBC 3.98 L Hgb 11.7 L Hct 36.7 L MCV 92.2 MCH 29.4 MCHC 31.9 L RDW 15.9 H Plt Count 137 L MPV 9.4 Immature Gran % (Auto) 0.4 Neut % (Auto) 58.1 Lymph % (Auto) 27.6 [place] % (Auto) 9.9 H Eos % (Auto) 3.1 Baso % (Auto) 0.9 Lymph # (Auto) 1.25 [place] # (Auto) 0.5 Eos # (Auto) 0.1 Baso # (Auto) 0.0 Abs Immat Gran (auto) 0.02 Absolute Neuts (auto) 2.6 Absolute Nucleated RBC 0.000 Nucleated RBC % 0.0 Sodium 137 Potassium 3.6 Chloride 108 H Carbon Dioxide 25 Anion Gap 4 BUN 15 Creatinine 0.60 L Estim Creat Clear Calc 48 Estimated GFR > 60 Glucose 70 POC Capillary Glucose 119 H 124 H Calcium 9.0 Total Bilirubin 0.8 AST 58 H ALT 39 H Alkaline Phosphatase 264 H Total Protein 5.3 L Albumin 2.8 L 07/02/25 08:08 WBC RBC Hgb Hct MCV MCH MCHC RDW Plt Count MPV Immature Gran % (Auto) Neut % (Auto) Lymph % (Auto) [place] % (Auto) Eos % (Auto) Baso % (Auto) Lymph # (Auto) [place] # (Auto) Eos # (Auto) Baso # (Auto) Abs Immat Gran (auto) Absolute Neuts (auto) Absolute Nucleated RBC Nucleated RBC % Sodium Potassium Chloride Carbon Dioxide Anion Gap BUN Creatinine Estim Creat Clear Calc Estimated GFR Glucose POC Capillary Glucose 71 Calcium Total Bilirubin AST ALT Alkaline Phosphatase Total Protein Albumin Quality VTE Prophylaxis VTE prophylaxis: pharmacologic ordered (Lovenox)
[2025-07-02 14:00] VITALS: BP 112/68; PULSE 76; RESP 18; TEMP 36.5; O2SAT 96
--- NOTE | 2025-07-02 17:19 | PCCCNOTE ---
[facility] offers peer to peer for Rosa Veronica . opt 5 deadline Friday07/04/25 by noon heath.
[2025-07-02 20:00] VITALS: PULSE 75; RESP 16; O2SAT 97
[2025-07-02] MEDS: ATORVASTATIN 40 MG TABLET PO (21:06)
[2025-07-02 22:00] VITALS: BP 154/76; PULSE 75; RESP 16; TEMP 36.6; O2SAT 97
[2025-07-03] MEDS: MEROPENEM 1 GM in SODIUM CHLORIDE 0.9% IV 100 ML 200 ML IVPB ×2 (00:12→12:10)
[2025-07-03] MEDS: ACETAMINOPHEN 325 MG TABLET 650 MG PO (00:31)
[2025-07-03] MEDS: LINACLOTIDE 145 MCG CAPSULE PO (05:33)
[2025-07-03 06:00] VITALS: BP 149/76; PULSE 74; RESP 18; TEMP 36.2; O2SAT 96
--- NOTE | 2025-07-03 06:51 | P.PNIM_ITS ---
Progress Note: A&P Assessment and Plan (1) Abdominal pain: Qualifiers: Abdominal location: generalized Qualified Code(s): R10.84 - Generalized abdominal pain Code(s): R10.9 - Unspecified abdominal pain Status: Inactive Assessment and Plan: * Abdomen pelvis CT with contrast showed small to moderate amount of stool extends to the cecum with less stool in the rectum, anal rectal changes with acute inflammatory or infectious process not excluded. * management of constipation as below * patient has been following with GI due to diarrhea and new onset rectal bleeding. Notes reviewed - last seen 06/02/25 which notes history of abnormal CT of the rectum an elevated fecal calprotectin, diarrhea and rectal bleeding. At one point there was concern for C diff for which she completed short course of vancomycin and diarrhea improved. Also recently treated for E coli diarrhea (stool PCR+ 05/29). Per notes, planned to undergo flexible sigmoidoscopy for further evaluation if CT showed continued rectal wall thickening. * consult GI, appreciate recs * no indication for endoscopic procedures at this time * IV Zosyn discontinued after GI consulted Infectious Disease * Abd pain has subsided at this time * Endorses one episode of diarrhea today * Will collect stool sample, cdiff * No abd pain, n/v * Will discontinue Miralax (2) Constipation: Qualifiers: Constipation type: unspecified constipation type Qualified Code(s): K59.00 - Constipation, unspecified Code(s): K59.00 - Constipation, unspecified Status: Acute Assessment and Plan: * Patient presents with abdominal pain ongoing for 1 week. Patient recently had a fecal impaction on 06/15 treated with an enema. Had diarrhea on Friday, no BM since. Decreased p.o. intake over the past week. * Abdomen pelvis CT with contrast showed small to moderate amount of stool extends to the cecum with less stool in the rectum, anal rectal changes with acute inflammatory or infectious process not excluded. * soapsuds enema x1 overnight * Continue Miralax daily and monitor for diarrhea recurrence. If diarrhea recurs, stop bowel regimen and order stool studies. * Continues to endorse bowel movements throughout the day (3) Urinary tract infection: Qualifiers: Hematuria presence: without hematuria Urinary tract infection type: acute cystitis Qualified Code(s): N30.00 - Acute cystitis without hematuria Code(s): N39.0 - Urinary tract infection, site not specified Status: Acute Assessment and Plan: * Patient does not complain of UTI symptoms, only had mild confusion on admission and abdominal pain as above * UA with 1+ protein, trace ketones, positive nitrate, 1+ bilirubin, 2+ leukocyte esterase, 6-10 RBC, 21-50 WBC, 1+ bacteria * afebrile, no leukocytosis * previous micro reviewed - history of E coli with resistance * started on Zosyn, to cover both GI inflammation and UTI, on 06/27 * ID declares asymptomatic Gram-negative bacteriuria and discontinued IV Zosyn * Infectious disease also signed off the case * urine culture shows growth of Citrobacter koseri and E coli, limited susceptibility -continue on meropenem (4) VIDHYA (acute kidney injury): Code(s): N17.9 - Acute kidney failure, unspecified Status: Resolved Assessment and Plan: * Creatinine 1.7 on admission. Patient has had decreased p.o. intake recently. Creatinine on 06/15 was 0.7. * NS at 100 started on 06/27, Cr improved to 0.87 * trend renal function * Kidney function stable (5) Dysphagia: Code(s): R13.10 - Dysphagia, unspecified Status: Chronic Assessment and Plan: * Modified barium swallow shows aspiration with thin liquids * speech therapy recommending regular textured food, moderately thickened level 3 liquids no straw only cup with an extra swallow after each drink (6) Failure to thrive: Status: Ruled-out Assessment and Plan: * very poor p.o. intake for at least 1 week * IV fluid switch to D5W/half-normal saline due to low blood sugars * dietitian consulted * nursing also noted coughing with eating, speech consulted * Modified barium swallow shows patient requires moderately thickened liquids from a cup with extra swallowing no straws Constipation/fecal impaction was causing nausea and diminished desire to eat or drink (7) Hemorrhoids: Qualifiers: Hemorrhoid type: unspecified Qualified Code(s): K64.9 - Unspecified hemorrhoids Code(s): K64.9 - Unspecified hemorrhoids Status: Chronic Assessment and Plan: * External hemorrhoids noted on exam. * continue topical hydrocortisone, Tucks pads * No severe thrombosed hemorrhoids though they do appear moderately irritated Avoid opioid pain medications due to constipation and fecal impaction (8) Essential (primary) hypertension: Code(s): I10 - Essential (primary) hypertension Status: Chronic Assessment and Plan: * Continue lisinopril, metoprolol * resume medications that were on hold due to NPO status (9) Dyslipidemia: Code(s): E78.5 - Hyperlipidemia, unspecified Status: Chronic Assessment and Plan: * Continue atorvastatin (10) Type 2 diabetes mellitus: Code(s): E11.9 - Type 2 diabetes mellitus without complications Status: Chronic Assessment and Plan: * hypoglycemia protocol * POC blood glucose ACHS * home medication: None * Low-dose sliding scale * A1C 6.2 on 04/07/2025 * Glucose improved, diet ordered (11) Hypokalemia: Code(s): E87.6 - Hypokalemia Status: Resolved Assessment and Plan: * potassium 3.2 * PO replacement ordered * recheck in AM * Potassium 3.9 * Resolved Plan DVT prophylaxis: SCDs and Lovenox Code status: DNR Dispo: To be determined, PT OT and speech therapy will recommending 3-5 days treatment per week for 2 weeks Subjective Date/time seen: 07/03/25 06:51 Interval history: 84-year-old female patient admitted to the hospital for abdominal pain with constipation nausea and severe weakness. She has not been able to eat or drink at home and getting weaker over the past 1 week. On admission there was concern about patient choking on her intake. There was also concern for fecal impaction she. 07/03/2025 Patient sitting comfortably in bed at time of exam. Has been pending JANY but insurance denied, will need to complete P2P. Plan to discharge pt on Macrobid for UTI. Remains hemodynamically stable. Did have an episode of diarrhea today - stool culture and cdiff sample collected. Review of Systems Review of Systems: All systems reviewed & are unremarkable except as noted in HPI and below Exam Narrative: General: chronically ill-appearing, appears deconditioned Eyes: EOMI ENT: neck supple Cardiovascular: Regular rate and rhythm Respiratory: Clear to auscultation, respirations even and unlabored on RA Gastrointestinal: Soft, mild LLQ tenderness without rebound or guarding. Genitourinary: no suprapubic tenderness Musculoskeletal: No edema Skin: warm, dry Neuro: Alert and oriented x3-4. Psych: Mood appropriate Objective Data Vital Signs Vital Signs: Vital Signs - 24 hr 07/02/25 08:00 07/02/25 09:04 07/02/25 14:00 Temperature 97.7 F Pulse Rate 90 76 Respiratory Rate 18 Blood Pressure 112/68 Pulse Oximetry 96 Oxygen Delivery Room Air 07/02/25 20:00 07/02/25 22:00 07/03/25 06:00 Temperature 97.9 F 97.2 F L Pulse Rate 75 75 74 Respiratory Rate 16 16 18 Blood Pressure 154/76 H 149/76 H Pulse Oximetry 97 97 96 Oxygen Delivery Room Air Intake/Output Intake/Output: Intake & Output 06/30/25 07/01/25 07/02/25 07/03/25 23:59 23:59 23:59 23:59 Intake Total 860 1470 1030 200 Output Total 400 300 Balance 860 1070 1030 -100 Meds/Results Medications: Active Medications Generic Name Dose Route Start Last Admin Trade Name Freq PRN Reason Stop Dose Admin Acetaminophen 650 mg 06/27/25 16:49 07/03/25 00:31 Acetaminophen 325 Mg Tablet PO 650 mg Q4H PRN Administration Mild Pain (1-3) or Fever Atorvastatin Calcium 40 mg 06/28/25 21:00 07/02/25 21:06 Atorvastatin 40 Mg Tablet PO 40 mg QHS ILA Administration Dextrose 12.5 gm 06/28/25 00:55 Dextrose 50% 25 Gm/50 Ml Syringe IV PUSH PRN PRN Hypoglycemia Protocol Dicyclomine HCl 10 mg 06/28/25 17:52 Dicyclomine Hcl 10 Mg Capsule PO TID PRN Abdominal Cramping Duloxetine HCl 60 mg 06/28/25 09:00 07/02/25 09:01 Duloxetine Hcl 60 Mg Capsule.Dr PO 60 mg DAILY ILA Administration Enoxaparin Sodium 40 mg 06/29/25 09:00 07/02/25 09:01 Enoxaparin 40 Mg/0.4 Ml Syringe SUB-Q 40 mg DAILY ILA Administration Glucagon 1 mg 06/28/25 00:55 Glucagon For Inj 1 Mg Vial IM PRN PRN Hypoglycemia Protocol Glucose 15 gm 06/28/25 00:55 Glucose Oral Gel 15 Gm Of Glucse In 37.5 Gm Tube PO PRN PRN Hypoglycemia Protocol Hydrocortisone 1 applic 06/28/25 00:30 06/28/25 17:44 Hydrocortisone 1% 30 Gm Cream TOPICAL 1 applic Q6H PRN Administration Hemorrhoids Dextrose 1,000 mls @ 100 mls/hr 06/28/25 00:55 Dextrose 5% 1,000 Ml IVPB PRN PRN Hypoglycemia Protocol Meropenem 1 gm/ Sodium 100 mls @ 200 mls/hr 06/30/25 00:00 07/03/25 00:42 Chloride IVPB Infused Q12H ILA Infusion Insulin Aspart 2 - 5 units 06/28/25 08:00 07/02/25 17:04 Insulin Aspart (*Bkc) 100 Units/Ml SUB-Q Not Given TIDWM [facility] Protocol Lidocaine HCl 10 ml 06/29/25 12:29 Lidocaine 2% Gel Urojet 10 Ml Pkg XX Q6H PRN Pain with enemas Linaclotide 145 mcg 06/30/25 06:30 07/03/25 05:33 Linaclotide 145 Mcg Capsule PO 145 mcg DAILY@0630 ILA Administration Lisinopril 40 mg 06/28/25 09:00 07/02/25 09:01 Lisinopril 20 Mg Tablet PO 40 mg DAILY ILA Administration Metoprolol Succinate 25 mg 06/28/25 09:00 07/02/25 09:04 Metoprolol Succinate Ext Rel 25 Mg Tabcr PO 25 mg DAILY ILA Administration Multivitamins/Minerals 1 tablet 06/28/25 09:00 07/02/25 09:01 Opti-Gen Tab PO 1 tablet DAILY [facility] Administration Pantoprazole Sodium 40 mg 06/28/25 09:00 07/02/25 21:06 Pantoprazole 40 Mg Tablet PO 40 mg Q12HR ILA Administration Polyethylene Glycol 17 gm 06/29/25 09:00 07/02/25 09:01 Polyethylene Glycol 3350 17 Gm Powd.Pack PO 17 gm QAM ILA Administration Prednisone 5 mg 06/28/25 08:00 07/02/25 17:01 Prednisone 5 Mg Tablet PO 5 mg BIDWM ILA Administration Witch Saranya 1 pad 06/28/25 10:36 Witch Saranya 40 Pads TOPICAL PRN PRN Perineal Discomfort Radiology Results: ITS Impressions Abdomen/Pelvis CT 06/27/25 16:10 IMPRESSION: 1. Anorectal changes with acute inflammatory or infectious process not excluded. 2. Other chronic appearing findings. Chest X-Ray 06/29/25 07:27 IMPRESSION: 1. Interstitial pulmonary edema. Modified Barium Swallow 06/29/25 14:14 IMPRESSION: Aspiration was observed on thin sequences. See speech therapist's report for complete evaluation. Labs Labs: Laboratory Results - last 24 hr 07/02/25 07/02/25 07/02/25 07:28 08:08 12:04 WBC 4.5 RBC 3.98 L Hgb 11.7 L Hct 36.7 L MCV 92.2 MCH 29.4 MCHC 31.9 L RDW 15.9 H Plt Count 137 L MPV 9.4 Immature Gran % (Auto) 0.4 Neut % (Auto) 58.1 Lymph % (Auto) 27.6 [place] % (Auto) 9.9 H Eos % (Auto) 3.1 Baso % (Auto) 0.9 Lymph # (Auto) 1.25 [place] # (Auto) 0.5 Eos # (Auto) 0.1 Baso # (Auto) 0.0 Abs Immat Gran (auto) 0.02 Absolute Neuts (auto) 2.6 Absolute Nucleated RBC 0.000 Nucleated RBC % 0.0 Sodium 137 Potassium 3.6 Chloride 108 H Carbon Dioxide 25 Anion Gap 4 BUN 15 Creatinine 0.60 L Estim Creat Clear Calc 48 Estimated GFR > 60 Glucose 70 POC Capillary Glucose 71 173 H Calcium 9.0 Total Bilirubin 0.8 AST 58 H ALT 39 H Alkaline Phosphatase 264 H Total Protein 5.3 L Albumin 2.8 L 07/02/25 07/02/25 17:00 20:34 WBC RBC Hgb Hct MCV MCH MCHC RDW Plt Count MPV Immature Gran % (Auto) Neut % (Auto) Lymph % (Auto) [place] % (Auto) Eos % (Auto) Baso % (Auto) Lymph # (Auto) [place] # (Auto) Eos # (Auto) Baso # (Auto) Abs Immat Gran (auto) Absolute Neuts (auto) Absolute Nucleated RBC Nucleated RBC % Sodium Potassium Chloride Carbon Dioxide Anion Gap BUN Creatinine Estim Creat Clear Calc Estimated GFR Glucose POC Capillary Glucose 120 H 148 H Calcium Total Bilirubin AST ALT Alkaline Phosphatase Total Protein Albumin Quality VTE Prophylaxis VTE prophylaxis: pharmacologic ordered (Lovenox)
[2025-07-03 10:06] VITALS: PULSE 72
[2025-07-03] MEDS: DULoxetine HCL 60 MG CAPSULE.DR PO (10:06)
[2025-07-03] MEDS: ENOXAPARIN 40 MG/0.4 ML SYRINGE SUB-Q (10:06)
[2025-07-03] MEDS: METOPROLOL SUCCINATE EXT REL 25 MG TABCR PO (10:06)
[2025-07-03] MEDS: PANTOPRAZOLE 40 MG TABLET PO ×2 (10:08→20:13)
[2025-07-03] MEDS: OPTI-GEN TAB 1 TABLET PO (10:08)
[2025-07-03] MEDS: INSULIN ASPART (*BKC) 100 UNITS/ML SUB-Q (12:11)
[2025-07-03 14:00] VITALS: BP 141/97; PULSE 95; RESP 17; TEMP 36.4; O2SAT 100
[2025-07-03 16:09] LABS: Hematocrit 40.4 % (37.0-47.0); Hemoglobin 12.9 g/dL (12.0-15.0); Immature Granulocyte Percent A 0.3 % (0-0.5); Lymphocytes Absolute Auto 0.96 K/mm3 (0.9-3.2); Mean Corpuscular HGB Conc 31.9 g/dl (32-36); Mean Corpuscular Hemoglobin 29.1 pg (26-34); Mean Corpuscular Volume 91.0 fl (80-100); Nucleated Red Blood Cells Absolute Auto 0.000 K/mm3 (0.0-0.012); Nucleated Red Blood Cells Perc 0.0 % (0.0-0.2); Platelet Count Result 167 k/mm3 (150-375); Red Blood Count 4.44 M/mm3 (4.2-5.4); White Blood Count 6.1 K/mm3 (4.5-10.0)
[2025-07-03 16:23] LABS: Alanine Aminotransferase 40 U/L (6-35); Albumin Level 2.9 g/dL (3.5-5.1); Alkaline Phosphatase 290 U/L (38-126); Anion Gap 3 mmol/L (4-12); Aspartate Amino Transferase 65 U/L (14-36); Bilirubin,Total 0.7 mg/dL (0.2-1.3); Blood Urea Nitrogen 15 mg/dL (7-17); Calcium 9.1 mg/dL (8.4-10.2); Carbon Dioxide 26 mmol/L (22-30); Chloride 109 mmol/L (98-107); Estimated CRCL calculation 54 ml/min; Estimated Glomerular Filt Rate > 60; Glucose 84 mg/dL (65-110); Potassium 3.8 mmol/L (3.4-5.0); Sodium 138 mmol/L (137-145); Total Protein 5.6 g/dL (6.3-8.2)
[2025-07-03 20:00] VITALS: PULSE 95; RESP 17; O2SAT 100
[2025-07-03] MEDS: ATORVASTATIN 40 MG TABLET PO (20:13)
[2025-07-03 20:33] VITALS: BP 115/72; PULSE 95; RESP 20; TEMP 36.7; O2SAT 93
[2025-07-04 05:30] LABS: Hematocrit 37.4 % (37.0-47.0); Hemoglobin 11.6 g/dL (12.0-15.0); Immature Granulocyte Percent A 0.8 % (0-0.5); Lymphocytes Absolute Auto 0.90 K/mm3 (0.9-3.2); Mean Corpuscular HGB Conc 31.0 g/dl (32-36); Mean Corpuscular Hemoglobin 28.8 pg (26-34); Mean Corpuscular Volume 92.8 fl (80-100); Nucleated Red Blood Cells Absolute Auto 0.000 K/mm3 (0.0-0.012); Nucleated Red Blood Cells Perc 0.0 % (0.0-0.2); Platelet Count Result 144 k/mm3 (150-375); Red Blood Count 4.03 M/mm3 (4.2-5.4); White Blood Count 5.0 K/mm3 (4.5-10.0)
[2025-07-04 05:54] LABS: Alanine Aminotransferase 50 U/L (6-35); Albumin Level 2.6 g/dL (3.5-5.1); Alkaline Phosphatase 292 U/L (38-126); Anion Gap 2 mmol/L (4-12); Aspartate Amino Transferase 81 U/L (14-36); Bilirubin,Total 0.5 mg/dL (0.2-1.3); Blood Urea Nitrogen 15 mg/dL (7-17); Calcium 8.6 mg/dL (8.4-10.2); Carbon Dioxide 27 mmol/L (22-30); Chloride 108 mmol/L (98-107); Estimated CRCL calculation 52 ml/min; Estimated Glomerular Filt Rate > 60; Glucose 103 mg/dL (65-110); Potassium 4.2 mmol/L (3.4-5.0); Sodium 137 mmol/L (137-145); Total Protein 5.0 g/dL (6.3-8.2)
[2025-07-04 06:00] VITALS: BP 158/86; PULSE 76; RESP 18; TEMP 36.3; O2SAT 95
[2025-07-04] MEDS: LINACLOTIDE 145 MCG CAPSULE PO (06:12)
[2025-07-04] MEDS: ENOXAPARIN 40 MG/0.4 ML SYRINGE SUB-Q (09:57)
[2025-07-04 09:59] VITALS: PULSE 88
[2025-07-04] MEDS: DULoxetine HCL 60 MG CAPSULE.DR PO (09:59)
[2025-07-04] MEDS: OPTI-GEN TAB 1 TABLET PO (09:59)
[2025-07-04] MEDS: METOPROLOL SUCCINATE EXT REL 25 MG TABCR PO (09:59)
[2025-07-04] MEDS: PANTOPRAZOLE 40 MG TABLET PO ×2 (09:59→20:38)
[2025-07-04] MEDS: MEROPENEM 1 GM in SODIUM CHLORIDE 0.9% IV 100 ML 200 ML IVPB ×3 (12:56→23:36)
--- NOTE | 2025-07-04 13:29 | PCNFU ---
Nutrition Follow-Up Complete: Moderate Protein Calorie Malnutrition as related to inadequate protein-energy intake in setting of acute disease (UTI) as evidenced by minimal oral intake for > 5 days; significant weight loss of 7 ibs (5%) in 13 days. Meet estimated nutritional needs - Slow progress with goals. Continue same goals Goal: Pt current nutrition is 2 g Na, moderately thick L3 liquids. Ensure HP TID (350 kcal, 20 g protein) and Nutritional ice cream TID (2270 kcal, 9 g protein). Nutrition recommendation: No new recommendations. Continue current nutrition care plan and orders. Agree with orders Last recorded weight is 61.8 kg. Bowel Motility: +1 BM 07/04 Labs Reviewed: Hgb 11.6, Alb 2.6, Cre 0.55 Meds Noted: Protonix, Linzess, Novolog Skin: No skin issues Additional Notes: Pt was nauseated this morning and refused breakfast. Still with poor appetite intakes 0-50%. Supplements are on board Continue to monitor Will monitor weight, labs, skin, diet orders, meds every 3 days.
[2025-07-04 14:00] VITALS: BP 172/79; PULSE 79; RESP 18; TEMP 36.3; O2SAT 98
--- NOTE | 2025-07-04 14:00 | P.PNIM_ITS ---
Progress Note: A&P Assessment and Plan (1) Abdominal pain: Qualifiers: Abdominal location: generalized Qualified Code(s): R10.84 - Generalized abdominal pain Code(s): R10.9 - Unspecified abdominal pain Status: Inactive Assessment and Plan: * Abdomen pelvis CT with contrast showed small to moderate amount of stool extends to the cecum with less stool in the rectum, anal rectal changes with acute inflammatory or infectious process not excluded. * management of constipation as below * patient has been following with GI due to diarrhea and new onset rectal bleeding. Notes reviewed - last seen 06/02/25 which notes history of abnormal CT of the rectum an elevated fecal calprotectin, diarrhea and rectal bleeding. At one point there was concern for C diff for which she completed short course of vancomycin and diarrhea improved. Also recently treated for E coli diarrhea (stool PCR+ 05/29). Per notes, planned to undergo flexible sigmoidoscopy for further evaluation if CT showed continued rectal wall thickening. * consult GI, appreciate recs * no indication for endoscopic procedures at this time * IV Zosyn discontinued after GI consulted Infectious Disease * Abd pain has subsided at this time * Endorses one episode of diarrhea today * Will collect stool sample, cdiff * No abd pain, n/v * Will discontinue Miralax (2) Constipation: Qualifiers: Constipation type: unspecified constipation type Qualified Code(s): K59.00 - Constipation, unspecified Code(s): K59.00 - Constipation, unspecified Status: Acute Assessment and Plan: * Patient presents with abdominal pain ongoing for 1 week. Patient recently had a fecal impaction on 06/15 treated with an enema. Had diarrhea on Friday, no BM since. Decreased p.o. intake over the past week. * Abdomen pelvis CT with contrast showed small to moderate amount of stool extends to the cecum with less stool in the rectum, anal rectal changes with acute inflammatory or infectious process not excluded. * soapsuds enema x1 overnight * Stop Miralax daily as pt now complaining of diarrhea (3) Failure to thrive: Status: Ruled-out Assessment and Plan: * very poor p.o. intake for at least 1 week * IV fluid switch to D5W/half-normal saline due to low blood sugars * dietitian consulted * nursing also noted coughing with eating, speech consulted * Modified barium swallow shows patient requires moderately thickened liquids from a cup with extra swallowing no straws * Constipation/fecal impaction was causing nausea and diminished desire to eat or drink * Pending placement - working with [facility] (4) Urinary tract infection: Qualifiers: Urinary tract infection type: acute cystitis Hematuria presence: without hematuria Qualified Code(s): N30.00 - Acute cystitis without hematuria Code(s): N39.0 - Urinary tract infection, site not specified Status: Acute Assessment and Plan: * Patient does not complain of UTI symptoms, only had mild confusion on admission and abdominal pain as above * UA with 1+ protein, trace ketones, positive nitrate, 1+ bilirubin, 2+ leukocyte esterase, 6-10 RBC, 21-50 WBC, 1+ bacteria * afebrile, no leukocytosis * previous micro reviewed - history of E coli with resistance * started on Zosyn, to cover both GI inflammation and UTI, on 06/27 * ID declares asymptomatic Gram-negative bacteriuria and discontinued IV Zosyn * Infectious disease also signed off the case * urine culture shows growth of Citrobacter koseri and E coli, limited susceptibility -continue on meropenem (5) VIDHYA (acute kidney injury): Code(s): N17.9 - Acute kidney failure, unspecified Status: Resolved Assessment and Plan: * Creatinine 1.7 on admission. Patient has had decreased p.o. intake recently. Creatinine on 06/15 was 0.7. * NS at 100 started on 06/27, Cr improved to 0.87 * trend renal function * Kidney function stable (6) Dysphagia: Code(s): R13.10 - Dysphagia, unspecified Status: Chronic Assessment and Plan: * Modified barium swallow shows aspiration with thin liquids * speech therapy recommending regular textured food, moderately thickened level 3 liquids no straw only cup with an extra swallow after each drink (7) Hemorrhoids: Qualifiers: Hemorrhoid type: unspecified Qualified Code(s): K64.9 - Unspecified hemorrhoids Code(s): K64.9 - Unspecified hemorrhoids Status: Chronic Assessment and Plan: * External hemorrhoids noted on exam. * continue topical hydrocortisone, Tucks pads * No severe thrombosed hemorrhoids though they do appear moderately irritated * Avoid opioid pain medications due to constipation and fecal impaction (8) Essential (primary) hypertension: Code(s): I10 - Essential (primary) hypertension Status: Chronic Assessment and Plan: * Continue lisinopril, metoprolol * resume medications that were on hold due to NPO status (9) Dyslipidemia: Code(s): E78.5 - Hyperlipidemia, unspecified Status: Chronic Assessment and Plan: * Continue atorvastatin (10) Type 2 diabetes mellitus: Code(s): E11.9 - Type 2 diabetes mellitus without complications Status: Chronic Assessment and Plan: * hypoglycemia protocol * POC blood glucose ACHS * home medication: None * Low-dose sliding scale * A1C 6.2 on 04/07/2025 * Glucose improved, diet ordered (11) Hypokalemia: Code(s): E87.6 - Hypokalemia Status: Resolved Assessment and Plan: * potassium 3.2 * PO replacement ordered * recheck in AM * Potassium 3.9 * Resolved Plan DVT prophylaxis: SCDs and Lovenox Code status: DNR Dispo: To be determined, PT OT and speech therapy will recommending 3-5 days treatment per week for 2 weeks Subjective Date/time seen: 07/04/25 14:00 Interval history: 84-year-old female patient admitted to the hospital for abdominal pain with constipation nausea and severe weakness. She has not been able to eat or drink at home and getting weaker over the past 1 week. On admission there was concern about patient choking on her intake. There was also concern for fecal impaction she. 07/04/2025 Patient sitting comfortably in bed at time of exam. Insurance denied [facility] placement, will continue to work with [facility] regarding rehab placement. Blood work and vitals remain stable. Stool sample was collected as patient was experiencing diarrhea yesterday, although she has been on stool softeners as her initial complaint was constipation - will discontinue stool softeners at this time. Review of Systems Review of Systems: All systems reviewed & are unremarkable except as noted in HPI and below Exam Narrative: General: chronically ill-appearing, appears deconditioned Eyes: EOMI ENT: neck supple Cardiovascular: Regular rate and rhythm Respiratory: Clear to auscultation, respirations even and unlabored on RA Gastrointestinal: Soft, mild LLQ tenderness without rebound or guarding. Genitourinary: no suprapubic tenderness Musculoskeletal: No edema Skin: warm, dry Neuro: Alert and oriented x3-4. Psych: Mood appropriate Objective Data Vital Signs Vital Signs: Vital Signs - 24 hr 07/03/25 20:00 07/03/25 20:33 07/04/25 06:00 Temperature 98.1 F 97.4 F L Pulse Rate 95 95 76 Respiratory Rate 17 20 18 Blood Pressure 115/72 158/86 H Pulse Oximetry 100 93 95 Oxygen Delivery Room Air 07/04/25 09:59 07/04/25 10:14 Temperature Pulse Rate 88 Respiratory Rate Blood Pressure Pulse Oximetry Oxygen Delivery Room Air Intake/Output Intake/Output: Intake & Output 07/01/25 07/02/25 07/03/25 07/04/25 23:59 23:59 23:59 23:59 Intake Total 1470 1030 960 280 Output Total 400 950 220 Balance 1070 1030 10 60 Meds/Results Medications: Active Medications Generic Name Dose Route Start Last Admin Trade Name Freq PRN Reason Stop Dose Admin Acetaminophen 650 mg 06/27/25 16:49 07/03/25 00:31 Acetaminophen 325 Mg Tablet PO 650 mg Q4H PRN Administration Mild Pain (1-3) or Fever Atorvastatin Calcium 40 mg 06/28/25 21:00 07/03/25 20:13 Atorvastatin 40 Mg Tablet PO 40 mg QHS ILA Administration Dextrose 12.5 gm 06/28/25 00:55 Dextrose 50% 25 Gm/50 Ml Syringe IV PUSH PRN PRN Hypoglycemia Protocol Dicyclomine HCl 10 mg 06/28/25 17:52 Dicyclomine Hcl 10 Mg Capsule PO TID PRN Abdominal Cramping Duloxetine HCl 60 mg 06/28/25 09:00 07/04/25 09:59 Duloxetine Hcl 60 Mg Capsule.Dr PO 60 mg DAILY ILA Administration Enoxaparin Sodium 40 mg 06/29/25 09:00 07/04/25 09:57 Enoxaparin 40 Mg/0.4 Ml Syringe SUB-Q 40 mg DAILY ILA Administration Glucagon 1 mg 06/28/25 00:55 Glucagon For Inj 1 Mg Vial IM PRN PRN Hypoglycemia Protocol Glucose 15 gm 06/28/25 00:55 Glucose Oral Gel 15 Gm Of Glucse In 37.5 Gm Tube PO PRN PRN Hypoglycemia Protocol Hydrocortisone 1 applic 06/28/25 00:30 06/28/25 17:44 Hydrocortisone 1% 30 Gm Cream TOPICAL 1 applic Q6H PRN Administration Hemorrhoids Dextrose 1,000 mls @ 100 mls/hr 06/28/25 00:55 Dextrose 5% 1,000 Ml IVPB PRN PRN Hypoglycemia Protocol Meropenem 1 gm/ Sodium 100 mls @ 200 mls/hr 06/30/25 00:00 07/04/25 12:56 Chloride IVPB 200 mls/hr Q12H ILA Administration Insulin Aspart 2 - 5 units 06/28/25 08:00 07/04/25 12:53 Insulin Aspart (*Bkc) 100 Units/Ml SUB-Q Not Given TIDWM ILA Protocol Lidocaine HCl 10 ml 06/29/25 12:29 Lidocaine 2% Gel Urojet 10 Ml Pkg XX Q6H PRN Pain with enemas Linaclotide 145 mcg 06/30/25 06:30 07/04/25 06:12 Linaclotide 145 Mcg Capsule PO 145 mcg DAILY@0630 ILA Administration Lisinopril 40 mg 06/28/25 09:00 07/04/25 09:59 Lisinopril 20 Mg Tablet PO 40 mg DAILY ILA Administration Metoprolol Succinate 25 mg 06/28/25 09:00 07/04/25 09:59 Metoprolol Succinate Ext Rel 25 Mg Tabcr PO 25 mg DAILY ILA Administration Multivitamins/Minerals 1 tablet 06/28/25 09:00 07/04/25 09:59 Opti-Gen Tab PO 1 tablet DAILY ILA Administration Pantoprazole Sodium 40 mg 06/28/25 09:00 07/04/25 09:59 Pantoprazole 40 Mg Tablet PO 40 mg Q12HR ILA Administration Prednisone 5 mg 06/28/25 08:00 07/04/25 09:59 Prednisone 5 Mg Tablet PO 5 mg BIDWM ILA Administration Witch Saranya 1 pad 06/28/25 10:36 Witch Saranya 40 Pads TOPICAL PRN PRN Perineal Discomfort Radiology Results: ITS Impressions Abdomen/Pelvis CT 06/27/25 16:10 IMPRESSION: 1. Anorectal changes with acute inflammatory or infectious process not excluded. 2. Other chronic appearing findings. Chest X-Ray 06/29/25 07:27 IMPRESSION: 1. Interstitial pulmonary edema. Modified Barium Swallow 06/29/25 14:14 IMPRESSION: Aspiration was observed on thin sequences. See speech therapist's report for complete evaluation. Labs Labs: Laboratory Results - last 24 hr 07/03/25 07/03/25 07/03/25 15:41 17:00 20:37 WBC 6.1 RBC 4.44 Hgb 12.9 Hct 40.4 MCV 91.0 MCH 29.1 MCHC 31.9 L RDW 15.9 H Plt Count 167 MPV 9.9 Immature Gran % (Auto) 0.3 Neut % (Auto) 72.3 Lymph % (Auto) 15.8 L [place] % (Auto) 9.4 H Eos % (Auto) 1.5 Baso % (Auto) 0.7 Lymph # (Auto) 0.96 [place] # (Auto) 0.6 Eos # (Auto) 0.1 Baso # (Auto) 0.0 Abs Immat Gran (auto) 0.02 Absolute Neuts (auto) 4.4 Absolute Nucleated RBC 0.000 Nucleated RBC % 0.0 Sodium 138 Potassium 3.8 Chloride 109 H Carbon Dioxide 26 Anion Gap 3 L BUN 15 Creatinine 0.53 L Estim Creat Clear Calc 54 Estimated GFR > 60 Glucose 84 POC Capillary Glucose 110 H 169 H Calcium 9.1 Total Bilirubin 0.7 AST 65 H ALT 40 H Alkaline Phosphatase 290 H Total Protein 5.6 L Albumin 2.9 L 07/04/25 07/04/25 07/04/25 05:11 08:02 11:15 WBC 5.0 RBC 4.03 L Hgb 11.6 L Hct 37.4 MCV 92.8 MCH 28.8 MCHC 31.0 L RDW 16.1 H Plt Count 144 L MPV 9.7 Immature Gran % (Auto) 0.8 H Neut % (Auto) 65.9 Lymph % (Auto) 18.1 L [place] % (Auto) 10.4 H Eos % (Auto) 3.8 Baso % (Auto) 1.0 Lymph # (Auto) 0.90 Me[place] # (Auto) 0.5 Eos # (Auto) 0.2 Baso # (Auto) 0.1 Abs Immat Gran (auto) 0.04 H Absolute Neuts (auto) 3.3 Absolute Nucleated RBC 0.000 Nucleated RBC % 0.0 Sodium 137 Potassium 4.2 Chloride 108 H Carbon Dioxide 27 Anion Gap 2 L BUN 15 Creatinine 0.55 L Estim Creat Clear Calc 52 Estimated GFR > 60 Glucose 103 POC Capillary Glucose 116 H 80 Calcium 8.6 Total Bilirubin 0.5 AST 81 H ALT 50 H Alkaline Phosphatase 292 H Total Protein 5.0 L Albumin 2.6 L Quality VTE Prophylaxis VTE prophylaxis: pharmacologic ordered (Lovenox)
[2025-07-04] MEDS: DICYCLOMINE HCL 10 MG CAPSULE PO ×2 (14:09→20:43)
[2025-07-04] MEDS: ONDANSETRON INJ 4 MG/2 ML VIAL IV PUSH (15:13)
[2025-07-04] MEDS: ATORVASTATIN 40 MG TABLET PO (20:38)
[2025-07-04 20:54] VITALS: BP 151/95; PULSE 105; RESP 20; TEMP 36.1; O2SAT 92
[2025-07-05 04:31] VITALS: BP 154/90; PULSE 85; RESP 18; TEMP 36.5; O2SAT 93
[2025-07-05] MEDS: LINACLOTIDE 145 MCG CAPSULE PO (05:53)
[2025-07-05 09:10] VITALS: BP 138/69; PULSE 90
[2025-07-05 09:11] VITALS: PULSE 90
[2025-07-05] MEDS: METOPROLOL SUCCINATE EXT REL 25 MG TABCR PO (09:11)
[2025-07-05] MEDS: DULoxetine HCL 60 MG CAPSULE.DR PO (09:11)
[2025-07-05] MEDS: OPTI-GEN TAB 1 TABLET PO (09:11)
[2025-07-05] MEDS: PANTOPRAZOLE 40 MG TABLET PO ×2 (09:12→20:32)
[2025-07-05] MEDS: ENOXAPARIN 40 MG/0.4 ML SYRINGE SUB-Q (09:12)
[2025-07-05] MEDS: MEROPENEM 1 GM in SODIUM CHLORIDE 0.9% IV 100 ML 200 ML IVPB (12:08)
[2025-07-05 14:00] VITALS: BP 138/78; PULSE 69; RESP 18; TEMP 36.6; O2SAT 95
--- NOTE | 2025-07-05 14:49 | P.PNIM_ITS ---
Progress Note: A&P Assessment and Plan (1) Abdominal pain: Qualifiers: Abdominal location: generalized Qualified Code(s): R10.84 - Generalized abdominal pain Code(s): R10.9 - Unspecified abdominal pain Status: Inactive Assessment and Plan: * Abdomen pelvis CT with contrast showed small to moderate amount of stool extends to the cecum with less stool in the rectum, anal rectal changes with acute inflammatory or infectious process not excluded. * management of constipation as below * patient has been following with GI due to diarrhea and new onset rectal bleeding. Notes reviewed - last seen 06/02/25 which notes history of abnormal CT of the rectum an elevated fecal calprotectin, diarrhea and rectal bleeding. At one point there was concern for C diff for which she completed short course of vancomycin and diarrhea improved. Also recently treated for E coli diarrhea (stool PCR+ 05/29). Per notes, planned to undergo flexible sigmoidoscopy for further evaluation if CT showed continued rectal wall thickening. * consult GI, appreciate recs * no indication for endoscopic procedures at this time * IV Zosyn discontinued after GI consulted Infectious Disease * Abd pain has subsided at this time * Endorses one episode of diarrhea today * Will collect stool sample, cdiff * No abd pain, n/v * Will discontinue Miralax (2) Constipation: Qualifiers: Constipation type: unspecified constipation type Qualified Code(s): K59.00 - Constipation, unspecified Code(s): K59.00 - Constipation, unspecified Status: Acute Assessment and Plan: * Patient presents with abdominal pain ongoing for 1 week. Patient recently had a fecal impaction on 06/15 treated with an enema. Had diarrhea on Friday, no BM since. Decreased p.o. intake over the past week. * Abdomen pelvis CT with contrast showed small to moderate amount of stool extends to the cecum with less stool in the rectum, anal rectal changes with acute inflammatory or infectious process not excluded. * soapsuds enema x1 overnight * Stop Miralax daily as pt now complaining of diarrhea (3) Failure to thrive: Status: Ruled-out Assessment and Plan: * very poor p.o. intake for at least 1 week * IV fluid switch to D5W/half-normal saline due to low blood sugars * dietitian consulted * nursing also noted coughing with eating, speech consulted * Modified barium swallow shows patient requires moderately thickened liquids from a cup with extra swallowing no straws * Constipation/fecal impaction was causing nausea and diminished desire to eat or drink * Pending placement - working with [facility] (4) Urinary tract infection: Qualifiers: Hematuria presence: without hematuria Urinary tract infection type: acute cystitis Qualified Code(s): N30.00 - Acute cystitis without hematuria Code(s): N39.0 - Urinary tract infection, site not specified Status: Acute Assessment and Plan: * Patient does not complain of UTI symptoms, only had mild confusion on admission and abdominal pain as above * UA with 1+ protein, trace ketones, positive nitrate, 1+ bilirubin, 2+ leukocyte esterase, 6-10 RBC, 21-50 WBC, 1+ bacteria * afebrile, no leukocytosis * previous micro reviewed - history of E coli with resistance * started on Zosyn, to cover both GI inflammation and UTI, on 06/27 * ID declares asymptomatic Gram-negative bacteriuria and discontinued IV Zosyn * Infectious disease also signed off the case * urine culture shows growth of Citrobacter koseri and E coli, limited susceptibility * continue on meropenem until 07/07 (5) VIDHYA (acute kidney injury): Code(s): N17.9 - Acute kidney failure, unspecified Status: Resolved Assessment and Plan: * Creatinine 1.7 on admission. Patient has had decreased p.o. intake recently. Creatinine on 06/15 was 0.7. * NS at 100 started on 06/27, Cr improved to 0.87 * trend renal function * Kidney function stable (6) Dysphagia: Code(s): R13.10 - Dysphagia, unspecified Status: Chronic Assessment and Plan: * Modified barium swallow shows aspiration with thin liquids * speech therapy recommending regular textured food, moderately thickened level 3 liquids no straw only cup with an extra swallow after each drink (7) Hemorrhoids: Qualifiers: Hemorrhoid type: unspecified Qualified Code(s): K64.9 - Unspecified hemorrhoids Code(s): K64.9 - Unspecified hemorrhoids Status: Chronic Assessment and Plan: * External hemorrhoids noted on exam. * continue topical hydrocortisone, Tucks pads * No severe thrombosed hemorrhoids though they do appear moderately irritated * Avoid opioid pain medications due to constipation and fecal impaction (8) Essential (primary) hypertension: Code(s): I10 - Essential (primary) hypertension Status: Chronic Assessment and Plan: * Continue lisinopril, metoprolol * resume medications that were on hold due to NPO status (9) Dyslipidemia: Code(s): E78.5 - Hyperlipidemia, unspecified Status: Chronic Assessment and Plan: * Continue atorvastatin (10) Type 2 diabetes mellitus: Code(s): E11.9 - Type 2 diabetes mellitus without complications Status: Chronic Assessment and Plan: * hypoglycemia protocol * POC blood glucose ACHS * home medication: None * Low-dose sliding scale * A1C 6.2 on 04/07/2025 * Glucose improved, diet ordered (11) Hypokalemia: Code(s): E87.6 - Hypokalemia Status: Resolved Assessment and Plan: * potassium 3.2 * PO replacement ordered * recheck in AM * Potassium 3.9 * Resolved Plan DVT prophylaxis: SCDs and Lovenox Code status: DNR Dispo: To be determined, PT OT and speech therapy will recommending 3-5 days tr eatment per week for 2 weeks Subjective Date/time seen: 07/05/25 14:49 Interval history: 84-year-old female patient admitted to the hospital for abdominal pain with constipation nausea and severe weakness. She has not been able to eat or drink at home and getting weaker over the past 1 week. On admission there was concern about patient choking on her intake. There was also concern for fecal impaction she. 07/05/2025 Patient sitting comfortably in bed at time of exam. Insurance denied [facility] placement, will continue to work with [facility] regarding rehab placement. No acute overnight events. Still pending auth for [facility]. Continue Meropenem for another 7 days to complete IV abx for UTI. Review of Systems Review of Systems: All systems reviewed & are unremarkable except as noted in HPI and below Exam Narrative: General: chronically ill-appearing, appears deconditioned Eyes: EOMI ENT: neck supple Cardiovascular: Regular rate and rhythm Respiratory: Clear to auscultation, respirations even and unlabored on RA Gastrointestinal: Soft, mild LLQ tenderness without rebound or guarding. Genitourinary: no suprapubic tenderness Musculoskeletal: No edema Skin: warm, dry Neuro: Alert and oriented x3-4. Psych: Mood appropriate Objective Data Vital Signs Vital Signs: Vital Signs - 24 hr 07/04/25 20:00 07/04/25 20:54 07/05/25 04:31 Temperature 97.0 F L 97.7 F Pulse Rate 105 H 85 Respiratory Rate 20 18 Blood Pressure 151/95 H 154/90 H Pulse Oximetry 92 93 Oxygen Delivery Room Air 07/05/25 08:00 07/05/25 09:10 07/05/25 09:11 Temperature Pulse Rate 90 90 Respiratory Rate Blood Pressure 138/69 Pulse Oximetry Oxygen Delivery Room Air 07/05/25 14:00 Temperature 97.8 F Pulse Rate 69 Respiratory Rate 18 Blood Pressure 138/78 Pulse Oximetry 95 Oxygen Delivery Intake/Output Intake/Output: Intake & Output 07/02/25 07/03/25 07/04/25 07/05/25 23:59 23:59 23:59 23:59 Intake Total 1030 960 580 320 Output Total 950 220 300 Balance 1030 10 360 20 Meds/Results Medications: Active Medications Generic Name Dose Route Start Last Admin Trade Name Freq PRN Reason Stop Dose Admin Acetaminophen 650 mg 06/27/25 16:49 07/03/25 00:31 Acetaminophen 325 Mg Tablet PO 650 mg Q4H PRN Administration Mild Pain (1-3) or Fever Atorvastatin Calcium 40 mg 06/28/25 21:00 07/04/25 20:38 Atorvastatin 40 Mg Tablet PO 40 mg QHS ILA Administration Dextrose 12.5 gm 06/28/25 00:55 Dextrose 50% 25 Gm/50 Ml Syringe IV PUSH PRN PRN Hypoglycemia Protocol Dicyclomine HCl 10 mg 06/28/25 17:52 07/04/25 20:43 Dicyclomine Hcl 10 Mg Capsule PO 10 mg TID PRN Administration Abdominal Cramping Duloxetine HCl 60 mg 06/28/25 09:00 07/05/25 09:11 Duloxetine Hcl 60 Mg Capsule.Dr PO 60 mg DAILY ILA Administration Enoxaparin Sodium 40 mg 06/29/25 09:00 07/05/25 09:12 Enoxaparin 40 Mg/0.4 Ml Syringe SUB-Q 40 mg DAILY ILA Administration Glucagon 1 mg 06/28/25 00:55 Glucagon For Inj 1 Mg Vial IM PRN PRN Hypoglycemia Protocol Glucose 15 gm 06/28/25 00:55 Glucose Oral Gel 15 Gm Of Glucse In 37.5 Gm Tube PO PRN PRN Hypoglycemia Protocol Hydrocortisone 1 applic 06/28/25 00:30 06/28/25 17:44 Hydrocortisone 1% 30 Gm Cream TOPICAL 1 applic Q6H PRN Administration Hemorrhoids Dextrose 1,000 mls @ 100 mls/hr 06/28/25 00:55 Dextrose 5% 1,000 Ml IVPB PRN PRN Hypoglycemia Protocol Meropenem 1 gm/ Sodium 100 mls @ 200 mls/hr 06/30/25 00:00 07/05/25 12:08 Chloride IVPB 200 mls/hr Q12H ILA Administration Insulin Aspart 2 - 5 units 06/28/25 08:00 07/05/25 11:56 Insulin Aspart (*Bkc) 100 Units/Ml SUB-Q Not Given TIDWM ILA Protocol Lidocaine HCl 10 ml 06/29/25 12:29 Lidocaine 2% Gel Urojet 10 Ml Pkg XX Q6H PRN Pain with enemas Linaclotide 145 mcg 06/30/25 06:30 07/05/25 05:53 Linaclotide 145 Mcg Capsule PO 145 mcg DAILY@0630 ILA Administration Lisinopril 40 mg 06/28/25 09:00 07/05/25 09:11 Lisinopril 20 Mg Tablet PO 40 mg DAILY ILA Administration Metoprolol Succinate 25 mg 06/28/25 09:00 07/05/25 09:11 Metoprolol Succinate Ext Rel 25 Mg Tabcr PO 25 mg DAILY ILA Administration Multivitamins/Minerals 1 tablet 06/28/25 09:00 07/05/25 09:11 Opti-Gen Tab PO 1 tablet DAILY ILA Administration Ondansetron HCl 4 mg 07/04/25 15:05 07/04/25 15:13 Ondansetron Inj 4 Mg/2 Ml Vial IV PUSH 4 mg Q6H PRN Administration Nausea And Vomiting Pantoprazole Sodium 40 mg 06/28/25 09:00 07/05/25 09:12 Pantoprazole 40 Mg Tablet PO 40 mg Q12HR ILA Administration Prednisone 5 mg 06/28/25 08:00 07/05/25 09:11 Prednisone 5 Mg Tablet PO 5 mg BIDWM ILA Administration Witch Saranya 1 pad 06/28/25 10:36 Witch Saranya 40 Pads TOPICAL PRN PRN Perineal Discomfort Radiology Results: ITS Impressions Abdomen/Pelvis CT 06/27/25 16:10 IMPRESSION: 1. Anorectal changes with acute inflammatory or infectious process not excluded. 2. Other chronic appearing findings. Chest X-Ray 06/29/25 07:27 IMPRESSION: 1. Interstitial pulmonary edema. Modified Barium Swallow 06/29/25 14:14 IMPRESSION: Aspiration was observed on thin sequences. See speech therapist's report for complete evaluation. Labs Labs: Laboratory Results - last 24 hr 07/04/25 07/04/25 07/05/25 17:18 20:56 07:30 POC Capillary Glucose 88 145 H 107 H 07/05/25 11:51 POC Capillary Glucose 150 H Quality VTE Prophylaxis VTE prophylaxis: pharmacologic ordered (Lovenox)
[2025-07-05 15:46] LABS: Hematocrit 38.4 % (37.0-47.0); Hemoglobin 12.2 g/dL (12.0-15.0); Immature Granulocyte Percent A 0.8 % (0-0.5); Lymphocytes Absolute Auto 0.73 K/mm3 (0.9-3.2); Mean Corpuscular HGB Conc 31.8 g/dl (32-36); Mean Corpuscular Hemoglobin 29.0 pg (26-34); Mean Corpuscular Volume 91.4 fl (80-100); Nucleated Red Blood Cells Absolute Auto 0.000 K/mm3 (0.0-0.012); Nucleated Red Blood Cells Perc 0.0 % (0.0-0.2); Platelet Count Result 163 k/mm3 (150-375); Red Blood Count 4.20 M/mm3 (4.2-5.4); White Blood Count 6.4 K/mm3 (4.5-10.0)
[2025-07-05 15:57] LABS: Alanine Aminotransferase 111 U/L (6-35); Albumin Level 2.8 g/dL (3.5-5.1); Alkaline Phosphatase 488 U/L (38-126); Anion Gap 1 mmol/L (4-12); Aspartate Amino Transferase 219 U/L (14-36); Bilirubin,Total 1.8 mg/dL (0.2-1.3); Blood Urea Nitrogen 15 mg/dL (7-17); Calcium 8.7 mg/dL (8.4-10.2); Carbon Dioxide 28 mmol/L (22-30); Chloride 103 mmol/L (98-107); Estimated CRCL calculation 54 ml/min; Estimated Glomerular Filt Rate > 60; Glucose 118 mg/dL (65-110); Potassium 4.3 mmol/L (3.4-5.0); Sodium 132 mmol/L (137-145); Total Protein 5.4 g/dL (6.3-8.2)
[2025-07-05 19:50] VITALS: BP 124/75; PULSE 79; RESP 18; TEMP 36.6; O2SAT 95
[2025-07-05 20:00] VITALS: PULSE 79; RESP 18; O2SAT 95
[2025-07-05] MEDS: ATORVASTATIN 40 MG TABLET PO (20:33)
[2025-07-06] MEDS: MEROPENEM 1 GM in SODIUM CHLORIDE 0.9% IV 100 ML 200 ML IVPB ×3 (00:26→23:53)
[2025-07-06 04:35] LABS: Hematocrit 35.3 % (37.0-47.0); Hemoglobin 11.0 g/dL (12.0-15.0); Immature Granulocyte Percent A 0.7 % (0-0.5); Lymphocytes Absolute Auto 1.19 K/mm3 (0.9-3.2); Mean Corpuscular HGB Conc 31.2 g/dl (32-36); Mean Corpuscular Hemoglobin 28.8 pg (26-34); Mean Corpuscular Volume 92.4 fl (80-100); Nucleated Red Blood Cells Absolute Auto 0.000 K/mm3 (0.0-0.012); Nucleated Red Blood Cells Perc 0.0 % (0.0-0.2); Platelet Count Result 169 k/mm3 (150-375); Red Blood Count 3.82 M/mm3 (4.2-5.4); White Blood Count 5.6 K/mm3 (4.5-10.0)
[2025-07-06 04:49] LABS: Alanine Aminotransferase 106 U/L (6-35); Albumin Level 2.6 g/dL (3.5-5.1); Alkaline Phosphatase 458 U/L (38-126); Anion Gap 1 mmol/L (4-12); Aspartate Amino Transferase 166 U/L (14-36); Bilirubin,Total 0.8 mg/dL (0.2-1.3); Blood Urea Nitrogen 16 mg/dL (7-17); Calcium 8.2 mg/dL (8.4-10.2); Carbon Dioxide 28 mmol/L (22-30); Chloride 104 mmol/L (98-107); Estimated CRCL calculation 53 ml/min; Estimated Glomerular Filt Rate > 60; Glucose 117 mg/dL (65-110); Potassium 4.2 mmol/L (3.4-5.0); Sodium 133 mmol/L (137-145); Total Protein 4.9 g/dL (6.3-8.2)
[2025-07-06 05:00] VITALS: BP 149/74; PULSE 75; RESP 18; TEMP 36.7; O2SAT 98
[2025-07-06] MEDS: LINACLOTIDE 145 MCG CAPSULE PO (06:30)
--- NOTE | 2025-07-06 07:36 | P.PNIM_ITS ---
Progress Note: A&P Assessment and Plan (1) Abdominal pain: Qualifiers: Abdominal location: generalized Qualified Code(s): R10.84 - Generalized abdominal pain Code(s): R10.9 - Unspecified abdominal pain Status: Inactive Assessment and Plan: - CT A/P on admission showed small to moderate amount of stool extends to the cecum with less stool in the rectum, anal rectal changes with acute inflammatory or infectious process not excluded. -patient has been following with GI due to diarrhea and new onset rectal bleeding. Notes reviewed - last seen 06/02/25 which notes history of abnormal CT of the rectum an elevated fecal calprotectin, diarrhea and rectal bleeding. At one point there was concern for C diff for which she completed short course of vancomycin and diarrhea improved. Also recently treated for E coli diarrhea (stool PCR+ 05/29). Per notes, planned to undergo flexible sigmoidoscopy for further evaluation if CT showed continued rectal wall thickening. - GI consulted - recommended stopping IV Zosyn. Management of constipation. Miralax discontinued. (2) Constipation: Qualifiers: Constipation type: unspecified constipation type Qualified Code(s): K 59.00 - Constipation, unspecified Code(s): K59.00 - Constipation, unspecified Status: Acute Assessment and Plan: -presented with abdominal pain x 1 week. Recently ED visit for fecal impaction. -Abdomen pelvis CT with contrast showed small to moderate amount of stool extends to the cecum with less stool in the rectum, anal rectal changes with acute inflammatory or infectious process not excluded. - Miralax held due to diarrhea (3) Failure to thrive: Status: Ruled-out Assessment and Plan: -very poor p.o. intake for at least 1 week -IV fluid switch to D5W/half-normal saline due to low blood sugars -dietitian consulted -nursing also noted coughing with eating, speech consulted -Modified barium swallow shows patient requires moderately thickened liquids from a cup with extra swallowing no straws -Constipation/fecal impaction was causing nausea and diminished desire to eat or drink -Pending placement - working with care coordination L (4) Urinary tract infection: Qualifiers: Hematuria presence: without hematuria Urinary tract infection type: acute cystitis Qualified Code(s): N30.00 - Acute cystitis without hematuria Code(s): N39.0 - Urinary tract infection, site not specified Status: Acute Assessment and Plan: -Patient does not complain of UTI symptoms, only had mild confusion on admission and abdominal pain as above -UA with 1+ protein, trace ketones, positive nitrate, 1+ bilirubin, 2+ leukocyte esterase, 6-10 RBC, 21-50 WBC, 1+ bacteria -afebrile, no leukocytosis -previous micro reviewed - history of E coli with resistance -started on Zosyn, to cover both GI inflammation and UTI, on 06/27 -ID declares asymptomatic Gram-negative bacteriuria and discontinued IV Zosyn -Infectious disease also signed off the case -urine culture shows growth of Citrobacter koseri and E coli, limited susceptibility -continue on meropenem until 07/07 (5) Dysphagia: Code(s): R13.10 - Dysphagia, unspecified Status: Chronic Assessment and Plan: -Modified barium swallow shows aspiration with thin liquids -speech therapy recommending regular textured food, moderately thickened level 3 liquids no straw only cup with an extra swallow after each drink (6) Hemorrhoids: Qualifiers: Hemorrhoid type: unspecified Qualified Code(s): K64.9 - Unspecified hemorrhoids Code(s): K64.9 - Unspecified hemorrhoids Status: Chronic Assessment and Plan: -External hemorrhoids noted on exam. -continue topical hydrocortisone, Tucks pads -Avoid opioid pain medications due to constipation and fecal impaction (7) Essential (primary) hypertension: Code(s): I10 - Essential (primary) hypertension Status: Chronic Assessment and Plan: - BP stable -Continue lisinopril, metoprolol (8) Dyslipidemia: Code(s): E78.5 - Hyperlipidemia, unspecified Status: Chronic Assessment and Plan: - holding statin (9) Type 2 diabetes mellitus: Code(s): E11.9 - Type 2 diabetes mellitus without complications Status: Chronic Assessment and Plan: -hypoglycemia protocol -POC blood glucose ACHS -home medication: None -Low-dose sliding scale -A1C 6.2 on 04/07/2025 (10) Elevated LFTs: Code(s): R79.89 - Other specified abnormal findings of blood chemistry Status: Acute Assessment and Plan: - AST 166, ALT 106, alk phos 458 (improving) - acute on chronic elevation - RUQ US with known cirrhosis - hold statin - monitor CMP Plan DVT prophylaxis: SCDs and Lovenox Code status: DNR Dispo: SNF, awaiting precert Subjective Date/time seen: 07/06/25 07:36 Interval history: 84-year-old female patient admitted to the hospital for abdominal pain with constipation nausea and severe weakness. She has not been able to eat or drink at home and getting weaker over the past 1 week. On admission there was concern about patient choking on her intake. Patient seen examined at bedside. No acute events. Patient doing better today, denies abdominal pain. Had large somewhat formed BM yesterday per nursing. Review of Systems Review of Systems: All systems reviewed & are unremarkable except as noted in HPI and below Exam Narrative: General: chronically ill-appearing, appears deconditioned Eyes: EOMI ENT: neck supple Cardiovascular: Regular rate and rhythm Respiratory: Clear to auscultation, respirations even and unlabored on RA Gastrointestinal: Soft, no tenderness to palpation Genitourinary: no suprapubic tenderness Musculoskeletal: No edema Skin: warm, dry Neuro: Alert Psych: Mood appropriate Objective Data Vital Signs Vital Signs: Vital Signs - 24 hr 07/05/25 08:00 07/05/25 09:10 07/05/25 09:11 Temperature Pulse Rate 90 90 Respiratory Rate Blood Pressure 138/69 Pulse Oximetry Oxygen Delivery Room Air 07/05/25 14:00 07/05/25 19:50 07/05/25 20:00 Temperature 97.8 F 97.8 F Pulse Rate 69 79 79 Respiratory Rate 18 18 18 Blood Pressure 138/78 124/75 Pulse Oximetry 95 95 95 Oxygen Delivery Room Air 07/06/25 05:00 Temperature 98.1 F Pulse Rate 75 Respiratory Rate 18 Blood Pressure 149/74 H Pulse Oximetry 98 Oxygen Delivery Intake/Output Intake/Output: Intake & Output 07/03/25 07/04/25 07/05/25 07/06/25 23:59 23:59 23:59 23:59 Intake Total 960 580 780 110 Output Total 950 220 300 300 Balance 10 360 480 -190 Meds/Results Medications: Active Medications Generic Name Dose Route Start Last Admin Trade Name Freq PRN Reason Stop Dose Admin Acetaminophen 650 mg 06/27/25 16:49 07/03/25 00:31 Acetaminophen 325 Mg Tablet PO 650 mg Q4H PRN Administration Mild Pain (1-3) or Fever Atorvastatin Calcium 40 mg 06/28/25 21:00 07/05/25 20:33 Atorvastatin 40 Mg Tablet PO 40 mg QHS ILA Administration Dextrose 12.5 gm 06/28/25 00:55 Dextrose 50% 25 Gm/50 Ml Syringe IV PUSH PRN PRN Hypoglycemia Protocol Dicyclomine HCl 10 mg 06/28/25 17:52 07/04/25 20:43 Dicyclomine Hcl 10 Mg Capsule PO 10 mg TID PRN Administration Abdominal Cramping Duloxetine HCl 60 mg 06/28/25 09:00 07/05/25 09:11 Duloxetine Hcl 60 Mg Capsule.Dr PO 60 mg DAILY ILA Administration Enoxaparin Sodium 40 mg 06/29/25 09:00 07/05/25 09:12 Enoxaparin 40 Mg/0.4 Ml Syringe SUB-Q 40 mg DAILY ILA Administration Glucagon 1 mg 06/28/25 00:55 Glucagon For Inj 1 Mg Vial IM PRN PRN Hypoglycemia Protocol Glucose 15 gm 06/28/25 00:55 Glucose Oral Gel 15 Gm Of Glucse In 37.5 Gm Tube PO PRN PRN Hypoglycemia Protocol Hydrocortisone 1 applic 06/28/25 00:30 06/28/25 17:44 Hydrocortisone 1% 30 Gm Cream TOPICAL 1 applic Q6H PRN Administration Hemorrhoids Dextrose 1,000 mls @ 100 mls/hr 06/28/25 00:55 Dextrose 5% 1,000 Ml IVPB PRN PRN Hypoglycemia Protocol Meropenem 1 gm/ Sodium 100 mls @ 200 mls/hr 06/30/25 00:00 07/06/25 00:26 Chloride IVPB 200 mls/hr Q12H ILA Administration Insulin Aspart 2 - 5 units 06/28/25 08:00 07/05/25 17:14 Insulin Aspart (*Bkc) 100 Units/Ml SUB-Q Not Given TIDWM [facility] Protocol Lidocaine HCl 10 ml 06/29/25 12:29 Lidocaine 2% Gel Urojet 10 Ml Pkg XX Q6H PRN Pain with enemas Linaclotide 145 mcg 06/30/25 06:30 07/05/25 05:53 Linaclotide 145 Mcg Capsule PO 145 mcg DAILY@0630 ILA Administration Lisinopril 40 mg 06/28/25 09:00 07/05/25 09:11 Lisinopril 20 Mg Tablet PO 40 mg DAILY ILA Administration Metoprolol Succinate 25 mg 06/28/25 09:00 07/05/25 09:11 Metoprolol Succinate Ext Rel 25 Mg Tabcr PO 25 mg DAILY ILA Administration Multivitamins/Minerals 1 tablet 06/28/25 09:00 07/05/25 09:11 Opti-Gen Tab PO 1 tablet DAILY ILA Administration Ondansetron HCl 4 mg 07/04/25 15:05 07/04/25 15:13 Ondansetron Inj 4 Mg/2 Ml Vial IV PUSH 4 mg Q6H PRN Administration Nausea And Vomiting Pantoprazole Sodium 40 mg 06/28/25 09:00 07/05/25 20:32 Pantoprazole 40 Mg Tablet PO 40 mg Q12HR ILA Administration Prednisone 5 mg 06/28/25 08:00 07/05/25 17:15 Prednisone 5 Mg Tablet PO 5 mg BIDWM ILA Administration Witch Saranya 1 pad 06/28/25 10:36 Witch Saranya 40 Pads TOPICAL PRN PRN Perineal Discomfort Radiology Results: ITS Impressions Abdomen/Pelvis CT 06/27/25 16:10 IMPRESSION: 1. Anorectal changes with acute inflammatory or infectious process not excluded. 2. Other chronic appearing findings. Chest X-Ray 06/29/25 07:27 IMPRESSION: 1. Interstitial pulmonary edema. Modified Barium Swallow 06/29/25 14:14 IMPRESSION: Aspiration was observed on thin sequences. See speech therapist's report for complete evaluation. Labs Labs: Laboratory Results - last 24 hr 07/05/25 07/05/25 07/05/25 11:51 15:38 16:35 WBC 6.4 RBC 4.20 Hgb 12.2 Hct 38.4 MCV 91.4 MCH 29.0 MCHC 31.8 L RDW 16.4 H Plt Count 163 MPV 9.6 Immature Gran % (Auto) 0.8 H Neut % (Auto) 71.0 Lymph % (Auto) 11.4 L [place] % (Auto) 11.6 H Eos % (Auto) 4.4 Baso % (Auto) 0.8 Lymph # (Auto) 0.73 L [place] # (Auto) 0.7 H Eos # (Auto) 0.3 Baso # (Auto) 0.1 Abs Immat Gran (auto) 0.05 H Absolute Neuts (auto) 4.5 Absolute Nucleated RBC 0.000 Nucleated RBC % 0.0 Sodium 132 L Potassium 4.3 Chloride 103 Carbon Dioxide 28 Anion Gap 1 L BUN 15 Creatinine 0.53 L Estim Creat Clear Calc 54 Estimated GFR > 60 Glucose 118 H POC Capillary Glucose 150 H 117 H Calcium 8.7 Total Bilirubin 1.8 H AST 219 H ALT 111 H Alkaline Phosphatase 488 H Total Protein 5.4 L Albumin 2.8 L 07/05/25 07/06/25 19:57 04:15 WBC 5.6 RBC 3.82 L Hgb 11.0 L Hct 35.3 L MCV 92.4 MCH 28.8 MCHC 31.2 L RDW 15.9 H Plt Count 169 MPV 10.1 Immature Gran % (Auto) 0.7 H Neut % (Auto) 62.3 Lymph % (Auto) 21.4 [place] % (Auto) 11.1 H Eos % (Auto) 3.8 Baso % (Auto) 0.7 Lymph # (Auto) 1.19 [place] # (Auto) 0.6 Eos # (Auto) 0.2 Baso # (Auto) 0.0 Abs Immat Gran (auto) 0.04 H Absolute Neuts (auto) 3.5 Absolute Nucleated RBC 0.000 Nucleated RBC % 0.0 Sodium 133 L Potassium 4.2 Chloride 104 Carbon Dioxide 28 Anion Gap 1 L BUN 16 Creatinine 0.54 L Estim Creat Clear Calc 53 Estimated GFR > 60 Glucose 117 H POC Capillary Glucose 164 H Calcium 8.2 L Total Bilirubin 0.8 AST 166 H ALT 106 H Alkaline Phosphatase 458 H Total Protein 4.9 L Albumin 2.6 L Quality VTE Prophylaxis VTE prophylaxis: pharmacologic ordered (Lovenox)
[2025-07-06 08:48] VITALS: BP 146/87; PULSE 80; O2SAT 97
[2025-07-06 08:49] VITALS: PULSE 80
[2025-07-06] MEDS: OPTI-GEN TAB 1 TABLET PO (08:49)
[2025-07-06] MEDS: DULoxetine HCL 60 MG CAPSULE.DR PO (08:49)
[2025-07-06] MEDS: PANTOPRAZOLE 40 MG TABLET PO ×2 (08:49→21:01)
[2025-07-06] MEDS: METOPROLOL SUCCINATE EXT REL 25 MG TABCR PO (08:49)
[2025-07-06] MEDS: ENOXAPARIN 40 MG/0.4 ML SYRINGE SUB-Q (08:49)
[2025-07-06 09:20] LABS: Hepatitis B Surface Antigen Negative (Negative)
[2025-07-06 09:26] LABS: HAV RESULT Negative (Negative); Hepatitis B Core IgM Result Negative (Negative)
--- NOTE | 2025-07-06 11:51 | PCNFU ---
Nutrition Follow-Up Complete: Moderate Protein Calorie Malnutrition as related to inadequate protein-energy intake in setting of acute disease (UTI) as evidenced by minimal oral intake for > 5 days; significant weight loss of 7 ibs (5%) in 13 days. Goal: Meet estimated nutritional needs Patient will continue current goal. Pt current nutrition is 2gm Na/Moderately Thick liquids, Level 3 diet with diet supplements. Last recorded weight is 61.8 kg, no new weight to report. Bowel Motility: Last reported BM 07/05 Labs Reviewed:Cr 0.54, Glu 117, Alb 2.6, Hgb 11.0, Hct 25.3 Meds Noted: Protonix,Lipitor. Skin: WNL Additional Notes: Patient remains on modified liquids of moderately thick liquids, Level 3 with regular consistencies. Oral Intake is < 50% of meals. Diet supplements are being provided TID of Nutritional Ice Cream (300 kcal and 9 gm protein) and Ensure High Protein (350 kcal and 20 gm protein). PO intake encouraged. Speech treatment today. Plans for SNF at discharge. Will monitor weight, labs, skin, diet orders, meds every 3 days.
[2025-07-06 14:00] VITALS: BP 127/72; PULSE 79; RESP 18; TEMP 36.5; O2SAT 100
[2025-07-06 19:58] VITALS: BP 134/82; PULSE 72; RESP 18; TEMP 36.7; O2SAT 95
[2025-07-06 20:00] VITALS: PULSE 72; RESP 18; O2SAT 95
[2025-07-07] VITALS (7 sets, daily range): BP systolic 114–167; BP diastolic 63–88; PULSE 74–82; RESP 16–20; TEMP 36.3–36.8; O2SAT 95–100
[2025-07-07 04:31] LABS: Hematocrit 36.6 % (37.0-47.0); Hemoglobin 11.6 g/dL (12.0-15.0); Immature Granulocyte Percent A 0.3 % (0-0.5); Lymphocytes Absolute Auto 1.06 K/mm3 (0.9-3.2); Mean Corpuscular HGB Conc 31.7 g/dl (32-36); Mean Corpuscular Hemoglobin 29.4 pg (26-34); Mean Corpuscular Volume 92.7 fl (80-100); Nucleated Red Blood Cells Absolute Auto 0.000 K/mm3 (0.0-0.012); Nucleated Red Blood Cells Perc 0.0 % (0.0-0.2); Platelet Count Result 169 k/mm3 (150-375); Red Blood Count 3.95 M/mm3 (4.2-5.4); White Blood Count 5.8 K/mm3 (4.5-10.0)
[2025-07-07 05:01] LABS: Alanine Aminotransferase 92 U/L (6-35); Albumin Level 2.7 g/dL (3.5-5.1); Alkaline Phosphatase 469 U/L (38-126); Anion Gap 0 mmol/L (4-12); Aspartate Amino Transferase 118 U/L (14-36); Bilirubin,Total 0.7 mg/dL (0.2-1.3); Blood Urea Nitrogen 15 mg/dL (7-17); Calcium 8.5 mg/dL (8.4-10.2); Carbon Dioxide 29 mmol/L (22-30); Chloride 103 mmol/L (98-107); Estimated CRCL calculation 59 ml/min; Estimated Glomerular Filt Rate > 60; Glucose 87 mg/dL (65-110); Potassium 4.3 mmol/L (3.4-5.0); Sodium 132 mmol/L (137-145); Total Protein 5.1 g/dL (6.3-8.2)
[2025-07-07] MEDS: LINACLOTIDE 145 MCG CAPSULE PO (05:33)
--- NOTE | 2025-07-07 07:36 | P.PNIM_ITS ---
Progress Note: A&P Assessment and Plan (1) Abdominal pain: Qualifiers: Abdominal location: generalized Qualified Code(s): R10.84 - Generalized abdominal pain Code(s): R10.9 - Unspecified abdominal pain Status: Inactive Assessment and Plan: - CT A/P on admission showed small to moderate amount of stool extends to the cecum with less stool in the rectum, anal rectal changes with acute inflammatory or infectious process not excluded. -patient has been following with GI due to diarrhea and new onset rectal bleeding. Notes reviewed - last seen 06/02/25 which notes history of abnormal CT of the rectum an elevated fecal calprotectin, diarrhea and rectal bleeding. At one point there was concern for C diff for which she completed short course of vancomycin and diarrhea improved. Also recently treated for E coli diarrhea (stool PCR+ 05/29). Per notes, planned to undergo flexible sigmoidoscopy for further evaluation if CT showed continued rectal wall thickening. - GI consulted - recommended stopping IV Zosyn. Management of constipation as below. (2) Constipation: Qualifiers: Constipation type: unspecified constipation type Qualified Code(s): K59.00 - Constipation, unspecified Code(s): K59.00 - Constipation, unspecified Status: Acute Assessment and Plan: -presented with abdominal pain x 1 week. Recently ED visit for fecal impaction. -Abdomen pelvis CT with contrast showed small to moderate amount of stool exte nds to the cecum with less stool in the rectum, anal rectal changes with acute inflammatory or infectious process not excluded. - Miralax held due to diarrhea. Patient continues on Linzess per GI recs. (3) Failure to thrive: Status: Ruled-out Assessment and Plan: -very poor p.o. intake for at least 1 week -IV fluid switch to D5W/half-normal saline due to low blood sugars -dietitian consulted -nursing also noted coughing with eating, speech consulted -Modified barium swallow shows patient requires moderately thickened liquids from a cup with extra swallowing no straws -Constipation/fecal impaction was causing nausea and diminished desire to eat or drink -Pending placement - care coordination following (4) Urinary tract infection: Qualifiers: Hematuria presence: without hematuria Urinary tract infection type: acute cystitis Qualified Code(s): N30.00 - Acute cystitis without hematuria Code(s): N39.0 - Urinary tract infection, site not specified Status: Acute Assessment and Plan: -Patient does not complain of UTI symptoms, only had mild confusion on admission and abdominal pain as above -UA with 1+ protein, trace ketones, positive nitrate, 1+ bilirubin, 2+ leukocyte esterase, 6-10 RBC, 21-50 WBC, 1+ bacteria -afebrile, no leukocytosis -previous micro reviewed - history of E coli with resistance -started on Zosyn, to cover both GI inflammation and UTI, on 06/27 -ID declares asymptomatic Gram-negative bacteriuria and discontinued IV Zosyn -Infectious disease also signed off the case -urine culture shows growth of Citrobacter koseri and E coli, limited susceptibility -continue on meropenem until 07/07 (5) Dysphagia: Code(s): R13.10 - Dysphagia, unspecified Status: Chronic Assessment and Plan: -Modified barium swallow shows aspiration with thin liquids -speech therapy recommending regular textured food, moderately thickened level 3 liquids no straw only cup with an extra swallow after each drink (6) Hemorrhoids: Qualifiers: Hemorrhoid type: unspecified Qualified Code(s): K64.9 - Unspecified hemorrhoids Code(s): K64.9 - Unspecified hemorrhoids Status: Chronic Assessment and Plan: -External hemorrhoids noted on exam. -continue topical hydrocortisone, Tucks pads -Avoid opioid pain medications due to constipation and fecal impaction (7) Essential (primary) hypertension: Code(s): I10 - Essential (primary) hypertension Status: Chronic Assessment and Plan: - BP stable -Continue lisinopril, metoprolol (8) Dyslipidemia: Code(s): E78.5 - Hyperlipidemia, unspecified Status: Chronic Assessment and Plan: - holding statin due to elevated LFTs (9) Type 2 diabetes mellitus: Code(s): E11.9 - Type 2 diabetes mellitus without complications Status: Chronic Assessment and Plan: -hypoglycemia protocol -POC blood glucose ACHS -home medication: None -Low-dose sliding scale -A1C 6.2 on 04/07/2025 (10) Elevated LFTs: Code(s): R79.89 - Other specified abnormal findings of blood chemistry Status: Acute Assessment and Plan: - AST 118, ALT 92, alk phos 469 (stable) - acute on chronic elevation - RUQ US with known cirrhosis - hold statin - monitor CMP Plan DVT prophylaxis: SCDs and Lovenox Code status: DNR Dispo: SNF, awaiting precert Subjective Date/time seen: 07/07/25 07:36 Interval history: 84-year-old female patient admitted to the hospital for abdominal pain with constipation nausea and severe weakness. She has not been able to eat or drink at home and getting weaker over the past 1 week. On admission there was concern about patient choking on her intake. Patient seen and examined at bedside. No acute complaints. Had a loose bowel movement yesterday. Review of Systems Review of Systems: All systems reviewed & are unremarkable except as noted in HPI and below Exam Narrative: General: chronically ill-appearing, appears deconditioned Eyes: EOMI ENT: neck supple Cardiovascular: Regular rate and rhythm Respiratory: Clear to auscultation, respirations even and unlabored on RA Gastrointestinal: Soft, no tenderness to palpation Genitourinary: no suprapubic tenderness Musculoskeletal: No edema Skin: warm, dry Neuro: Alert Psych: Mood appropriate Objective Data Vital Signs Vital Signs: Vital Signs - 24 hr 07/06/25 08:00 07/06/25 08:48 07/06/25 08:49 Temperature Pulse Rate 80 80 Respiratory Rate Blood Pressure 146/87 H Pulse Oximetry 97 Oxygen Delivery Room Air 07/06/25 14:00 07/06/25 19:58 07/06/25 20:00 Temperature 97.7 F 98.1 F Pulse Rate 79 72 72 Respiratory Rate 18 18 18 Blood Pressure 127/72 134/82 Pulse Oximetry 100 95 95 Oxygen Delivery Room Air 07/07/25 04:50 Temperature 98.2 F Pulse Rate 74 Respiratory Rate 18 Blood Pressure 167/88 H Pulse Oximetry 100 Oxygen Delivery Intake/Output Intake/Output: Intake & Output 07/04/25 07/05/25 07/06/25 07/07/25 23:59 23:59 23:59 23:59 Intake Total 580 780 790 100 Output Total 220 300 700 675 Balance 360 480 90 -575 Meds/Results Medications: Active Medications Generic Name Dose Route Start Last Admin Trade Name Freq PRN Reason Stop Dose Admin Acetaminophen 650 mg 06/27/25 16:49 07/03/25 00:31 Acetaminophen 325 Mg Tablet PO 650 mg Q4H PRN Administration Mild Pain (1-3) or Fever Atorvastatin Calcium 40 mg 06/28/25 21:00 07/05/25 20:33 Atorvastatin 40 Mg Tablet PO 40 mg On Hold: 07/06/25 07:45 QHS ILA Administration Dextrose 12.5 gm 06/28/25 00:55 Dextrose 50% 25 Gm/50 Ml Syringe IV PUSH PRN PRN Hypoglycemia Protocol Dicyclomine HCl 10 mg 06/28/25 17:52 07/04/25 20:43 Dicyclomine Hcl 10 Mg Capsule PO 10 mg TID PRN Administration Abdominal Cramping Duloxetine HCl 60 mg 06/28/25 09:00 07/06/25 08:49 Duloxetine Hcl 60 Mg Capsule.Dr PO 60 mg DAILY ILA Administration Enoxaparin Sodium 40 mg 06/29/25 09:00 07/06/25 08:49 Enoxaparin 40 Mg/0.4 Ml Syringe SUB-Q 40 mg DAILY ILA Administration Glucagon 1 mg 06/28/25 00:55 Glucagon For Inj 1 Mg Vial IM PRN PRN Hypoglycemia Protocol Glucose 15 gm 06/28/25 00:55 Glucose Oral Gel 15 Gm Of Glucse In 37.5 Gm Tube PO PRN PRN Hypoglycemia Protocol Hydrocortisone 1 applic 06/28/25 00:30 06/28/25 17:44 Hydrocortisone 1% 30 Gm Cream TOPICAL 1 applic Q6H PRN Administration Hemorrhoids Dextrose 1,000 mls @ 100 mls/hr 06/28/25 00:55 Dextrose 5% 1,000 Ml IVPB PRN PRN Hypoglycemia Protocol Meropenem 1 gm/ Sodium 100 mls @ 200 mls/hr 06/30/25 00:00 07/06/25 23:53 Chloride IVPB 200 mls/hr Q12H ILA Administration Insulin Aspart 2 - 5 units 06/28/25 08:00 07/07/25 07:20 Insulin Aspart (*Bkc) 100 Units/Ml SUB-Q Not Given TIDWM [facility] Protocol Lidocaine HCl 10 ml 06/29/25 12:29 Lidocaine 2% Gel Urojet 10 Ml Pkg XX Q6H PRN Pain with enemas Linaclotide 145 mcg 06/30/25 06:30 07/07/25 05:33 Linaclotide 145 Mcg Capsule PO 145 mcg DAILY@0630 ILA Administration Lisinopril 40 mg 06/28/25 09:00 07/06/25 08:49 Lisinopril 20 Mg Tablet PO 40 mg DAILY ILA Administration Metoprolol Succinate 25 mg 06/28/25 09:00 07/06/25 08:49 Metoprolol Succinate Ext Rel 25 Mg Tabcr PO 25 mg DAILY ILA Administration Multivitamins/Minerals 1 tablet 06/28/25 09:00 07/06/25 08:49 Opti-Gen Tab PO 1 tablet DAILY ILA Administration Ondansetron HCl 4 mg 07/04/25 15:05 07/04/25 15:13 Ondansetron Inj 4 Mg/2 Ml Vial IV PUSH 4 mg Q6H PRN Administration Nausea And Vomiting Pantoprazole Sodium 40 mg 06/28/25 09:00 07/06/25 21:01 Pantoprazole 40 Mg Tablet PO 40 mg Q12HR ILA Administration Prednisone 5 mg 06/28/25 08:00 07/06/25 17:20 Prednisone 5 Mg Tablet PO 5 mg BIDWM ILA Administration Witch Saranya 1 pad 06/28/25 10:36 Witch Saranya 40 Pads TOPICAL PRN PRN Perineal Discomfort Radiology Results: ITS Impressions Abdomen/Pelvis CT 06/27/25 16:10 IMPRESSION: 1. Anorectal changes with acute inflammatory or infectious process not excluded. 2. Other chronic appearing findings. Chest X-Ray 06/29/25 07:27 IMPRESSION: 1. Interstitial pulmonary edema. Modified Barium Swallow 06/29/25 14:14 IMPRESSION: Aspiration was observed on thin sequences. See speech therapist's report for complete evaluation. Abdomen Ultrasound 07/06/25 08:20 IMPRESSION: 1: Cirrhosis of the liver. 2: Cholelithiasis. Labs Labs: Laboratory Results - last 24 hr 07/06/25 07/06/25 07/06/25 04:15 07:43 11:43 WBC RBC Hgb Hct MCV MCH MCHC RDW Plt Count MPV Immature Gran % (Auto) Neut % (Auto) Lymph % (Auto) [place] % (Auto) Eos % (Auto) Baso % (Auto) Lymph # (Auto) [place] # (Auto) Eos # (Auto) Baso # (Auto) Abs Immat Gran (auto) Absolute Neuts (auto) Absolute Nucleated RBC Nucleated RBC % Sodium Potassium Chloride Carbon Dioxide Anion Gap BUN Creatinine Estim Creat Clear Calc Estimated GFR Glucose POC Capillary Glucose 78 125 H Calcium Total Bilirubin AST ALT Alkaline Phosphatase Total Protein Albumin Hepatitis A IgM Ab Negative Hep Bs Antigen Negative Hep B Core IgM Ab Negative Hepatitis C Ab Screen Negative 07/06/25 07/06/25 07/07/25 16:42 20:04 04:15 WBC 5.8 RBC 3.95 L Hgb 11.6 L Hct 36.6 L MCV 92.7 MCH 29.4 MCHC 31.7 L RDW 15.8 H Plt Count 169 MPV 10.2 Immature Gran % (Auto) 0.3 Neut % (Auto) 68.6 Lymph % (Auto) 18.3 [place] % (Auto) 8.7 H Eos % (Auto) 3.6 Baso % (Auto) 0.5 Lymph # (Auto) 1.06 [place] # (Auto) 0.5 Eos # (Auto) 0.2 Baso # (Auto) 0.0 Abs Immat Gran (auto) 0.02 Absolute Neuts (auto) 4.0 Absolute Nucleated RBC 0.000 Nucleated RBC % 0.0 Sodium 132 L Potassium 4.3 Chloride 103 Carbon Dioxide 29 Anion Gap 0 L BUN 15 Creatinine 0.48 L Estim Creat Clear Calc 59 Estimated GFR > 60 Glucose 87 POC Capillary Glucose 133 H 156 H Calcium 8.5 Total Bilirubin 0.7 AST 118 H ALT 92 H Alkaline Phosphatase 469 H Total Protein 5.1 L Albumin 2.7 L Hepatitis A IgM Ab Hep Bs Antigen Hep B Core IgM Ab Hepatitis C Ab Screen 07/07/25 07:18 WBC RBC Hgb Hct MCV MCH MCHC RDW Plt Count MPV Immature Gran % (Auto) Neut % (Auto) Lymph % (Auto) [place] % (Auto) Eos % (Auto) Baso % (Auto) Lymph # (Auto) [place] # (Auto) Eos # (Auto) Baso # (Auto) Abs Immat Gran (auto) Absolute Neuts (auto) Absolute Nucleated RBC Nucleated RBC % Sodium Potassium Chloride Carbon Dioxide Anion Gap BUN Creatinine Estim Creat Clear Calc Estimated GFR Glucose POC Capillary Glucose 69 Calcium Total Bilirubin AST ALT Alkaline Phosphatase Total Protein Albumin Hepatitis A IgM Ab Hep Bs Antigen Hep B Core IgM Ab Hepatitis C Ab Screen Quality VTE Prophylaxis VTE prophylaxis: pharmacologic ordered (Lovenox)
[2025-07-07] MEDS: DULoxetine HCL 60 MG CAPSULE.DR PO (09:19)
[2025-07-07] MEDS: PANTOPRAZOLE 40 MG TABLET PO ×2 (09:19→20:26)
[2025-07-07] MEDS: METOPROLOL SUCCINATE EXT REL 25 MG TABCR PO (09:19)
[2025-07-07] MEDS: OPTI-GEN TAB 1 TABLET PO (09:19)
[2025-07-07] MEDS: ENOXAPARIN 40 MG/0.4 ML SYRINGE SUB-Q (09:20)
[2025-07-07] MEDS: MEROPENEM 1 GM in SODIUM CHLORIDE 0.9% IV 100 ML 200 ML IVPB (11:15)
[2025-07-08] MEDS: MEROPENEM 1 GM in SODIUM CHLORIDE 0.9% IV 100 ML 200 ML IVPB ×2 (00:04→12:44)
[2025-07-08] MEDS: ACETAMINOPHEN 325 MG TABLET 650 MG PO (00:37)
[2025-07-08 03:19] VITALS: BP 170/84; PULSE 67; RESP 18; TEMP 36.4; O2SAT 99
[2025-07-08 05:09] LABS: Hematocrit 36.7 % (37.0-47.0); Hemoglobin 11.8 g/dL (12.0-15.0); Immature Granulocyte Percent A 0.3 % (0-0.5); Lymphocytes Absolute Auto 1.27 K/mm3 (0.9-3.2); Mean Corpuscular HGB Conc 32.2 g/dl (32-36); Mean Corpuscular Hemoglobin 29.9 pg (26-34); Mean Corpuscular Volume 93.1 fl (80-100); Nucleated Red Blood Cells Absolute Auto 0.000 K/mm3 (0.0-0.012); Nucleated Red Blood Cells Perc 0.0 % (0.0-0.2); Platelet Count Result 179 k/mm3 (150-375); Red Blood Count 3.94 M/mm3 (4.2-5.4); White Blood Count 6.2 K/mm3 (4.5-10.0)
[2025-07-08 05:21] LABS: Alanine Aminotransferase 80 U/L (6-35); Albumin Level 2.7 g/dL (3.5-5.1); Alkaline Phosphatase 457 U/L (38-126); Anion Gap 1 mmol/L (4-12); Aspartate Amino Transferase 102 U/L (14-36); Bilirubin,Total 0.7 mg/dL (0.2-1.3); Blood Urea Nitrogen 15 mg/dL (7-17); Calcium 8.7 mg/dL (8.4-10.2); Carbon Dioxide 30 mmol/L (22-30); Chloride 102 mmol/L (98-107); Estimated CRCL calculation 57 ml/min; Estimated Glomerular Filt Rate > 60; Glucose 75 mg/dL (65-110); Potassium 4.3 mmol/L (3.4-5.0); Sodium 133 mmol/L (137-145); Total Protein 5.1 g/dL (6.3-8.2)
--- NOTE | 2025-07-08 06:59 | P.PNIM_ITS ---
Progress Note: A&P Assessment and Plan (1) Constipation: Qualifiers: Constipation type: unspecified constipation type Qualified Code(s): K59.00 - Constipation, unspecified Code(s): K59.00 - Constipation, unspecified Status: Acute Assessment and Plan: -presented with abdominal pain x 1 week. Recently ED visit for fecal impaction. -Abdomen pelvis CT with contrast showed small to moderate amount of stool extends to the cecum with less stool in the rectum, anal rectal changes with acute inflammatory or infectious process not excluded. - Miralax held due to diarrhea. Continue Linzess per GI recs. (2) Abdominal pain: Qualifiers: Abdominal location: generalized Qualified Code(s): R10.84 - Generalized abdominal pain Code(s): R10.9 - Unspecified abdominal pain Status: Resolved Assessment and Plan: - CT A/P on admission showed small to moderate amount of stool extends to the cecum with less stool in the rectum, anal rectal changes with acute inflammatory or infectious process not excluded. -patient has been following with GI due to diarrhea and new onset rectal bleeding. Notes reviewed - last seen 06/02/25 which notes history of abnormal CT of the rectum an elevated fecal calprotectin, diarrhea and rectal bleeding. At one point there was concern for C diff for which she completed short course of vancomycin and diarrhea improved. Also recently treated for E coli diarrhea (stool PCR+ 05/29). Per notes, planned to undergo flexible sigmoidoscopy for further evaluation if CT showed continued rectal wall thickening. - GI consulted - recommended stopping IV Zosyn. Management of constipation as below. (3) Urinary tract infection: Qualifiers: Hematuria presence: without hematuria Urinary tract infection type: acute cystitis Qualified Code(s): N30.00 - Acute cystitis without hematuria Code(s): N39.0 - Urinary tract infection, site not specified Status: Acute Assessment and Plan: -Patient did not complain of UTI symptoms, only had mild confusion on admission and abdominal pain as above -afebrile, no leukocytosis -previous micro reviewed - history of E coli with resistance -urine culture shows growth of Citrobacter koseri and E coli, limited susceptibility -finished course of Meropenem 07/07 - recommend judicious use of antibiotics in the future (4) Dysphagia: Code(s): R13.10 - Dysphagia, unspecified Status: Chronic Assessment and Plan: -Modified barium swallow shows aspiration with thin liquids -speech therapy recommending regular textured food, moderately thickened level 3 liquids no straw only cup with an extra swallow after each drink (5) Hemorrhoids: Qualifiers: Hemorrhoid type: unspecified Qualified Code(s): K64.9 - Unspecified hemorrhoids Code(s): K64.9 - Unspecified hemorrhoids Status: Chronic Assessment and Plan: -External hemorrhoids noted on exam. -continue topical hydrocortisone, Tucks pads -Avoid opioid pain medications due to constipation and fecal impaction (6) Essential (primary) hypertension: Code(s): I10 - Essential (primary) hypertension Status: Chronic Assessment and Plan: - BP stable -Continue lisinopril, metoprolol (7) Dyslipidemia: Code(s): E78.5 - Hyperlipidemia, unspecified Status: Chronic Assessment and Plan: - holding statin due to elevated LFTs (8) Type 2 diabetes mellitus: Code(s): E11.9 - Type 2 diabetes mellitus without complications Status: Chronic Assessment and Plan: -hypoglycemia protocol -POC blood glucose ACHS -home medication: None -Low-dose sliding scale -A1C 6.2 on 04/07/2025 (9) Elevated LFTs: Code(s): R79.89 - Other specified abnormal findings of blood chemistry Status: Acute Assessment and Plan: - 07/08/25 - AST 102, ALT 80, alk phos 457 (improving) - acute on chronic elevation - RUQ US with known cirrhosis - hold statin - monitor CMP (10) Moderate protein-calorie malnutrition: Code(s): E44.0 - Moderate protein-calorie malnutrition Status: Acute Assessment and Plan: - intake has improved with management of constipation - dietitian following (11) Generalized weakness: Code(s): R53.1 - Weakness Status: Acute Assessment and Plan: - PT/OT recommended SNF, pending auth Plan DVT prophylaxis: SCDs and Lovenox Code status: DNR Dispo: SNF, awaiting auth Subjective Date/time seen: 07/08/25 06:59 Interval history: 84-year-old female patient admitted to the hospital for abdominal pain with constipation nausea and severe weakness. She has not been able to eat or drink at home and getting weaker over the past 1 week. On admission there was concern about patient choking on her intake. Patient seen and examined at bedside. Denied acute complaints. Had BM yesterday. Discussed plan of care with at bedside. Encouraged compliance with Linzess. expedited appeal sent for SNF auth. Review of Systems Review of Systems: All systems reviewed & are unremarkable except as noted in HPI and below Exam Narrative: General: chronically ill-appearing, appears deconditioned Eyes: EOMI ENT: neck supple Cardiovascular: Regular rate and rhythm Respiratory: Clear to auscultation, respirations even and unlabored on RA Gastrointestinal: Soft, no tenderness to palpation Genitourinary: no suprapubic tenderness Musculoskeletal: No edema Skin: warm, dry Neuro: Alert Psych: Mood appropriate Objective Data Vital Signs Vital Signs: Vital Signs - 24 hr 07/07/25 09:19 07/07/25 09:20 07/07/25 13:56 Temperature 97.3 F L Pulse Rate 76 82 Respiratory Rate 18 16 Blood Pressure 114/63 Pulse Oximetry 100 95 Oxygen Delivery Room Air 07/07/25 14:00 07/07/25 19:30 07/07/25 20:20 Temperature 97.3 F L 98.1 F Pulse Rate 82 82 79 Respiratory Rate 16 16 20 Blood Pressure 114/63 140/67 Pulse Oximetry 95 95 96 Oxygen Delivery Room Air 07/08/25 03:19 Temperature 97.6 F Pulse Rate 67 Respiratory Rate 18 Blood Pressure 170/84 H Pulse Oximetry 99 Oxygen Delivery Intake/Output Intake/Output: Intake & Output 07/05/25 07/06/25 07/07/25 07/08/25 23:59 23:59 23:59 23:59 Intake Total 413 584 6601 120 Output Total 542 791 8681 200 Balance 480 90 -387 -80 Meds/Results Medications: Active Medications Generic Name Dose Route Start Last Admin Trade Name Freq PRN Reason Stop Dose Admin Acetaminophen 650 mg 06/27/25 16:49 07/08/25 00:37 Acetaminophen 325 Mg Tablet PO 650 mg Q4H PRN Administration Mild Pain (1-3) or Fever Atorvastatin Calcium 40 mg 06/28/25 21:00 07/05/25 20:33 Atorvastatin 40 Mg Tablet PO 40 mg On Hold: 07/06/25 07:45 QHS ILA Administration Dextrose 12.5 gm 06/28/25 00:55 Dextrose 50% 25 Gm/50 Ml Syringe IV PUSH PRN PRN Hypoglycemia Protocol Dicyclomine HCl 10 mg 06/28/25 17:52 07/04/25 20:43 Dicyclomine Hcl 10 Mg Capsule PO 10 mg TID PRN Administration Abdominal Cramping Duloxetine HCl 60 mg 06/28/25 09:00 07/07/25 09:19 Duloxetine Hcl 60 Mg Capsule.Dr PO 60 mg DAILY ILA Administration Enoxaparin Sodium 40 mg 06/29/25 09:00 07/07/25 09:20 Enoxaparin 40 Mg/0.4 Ml Syringe SUB-Q 40 mg DAILY ILA Administration Glucagon 1 mg 06/28/25 00:55 Glucagon For Inj 1 Mg Vial IM PRN PRN Hypoglycemia Protocol Glucose 15 gm 06/28/25 00:55 Glucose Oral Gel 15 Gm Of Glucse In 37.5 Gm Tube PO PRN PRN Hypoglycemia Protocol Hydrocortisone 1 applic 06/28/25 00:30 06/28/25 17:44 Hydrocortisone 1% 30 Gm Cream TOPICAL 1 applic Q6H PRN Administration Hemorrhoids Dextrose 1,000 mls @ 100 mls/hr 06/28/25 00:55 Dextrose 5% 1,000 Ml IVPB PRN PRN Hypoglycemia Protocol Meropenem 1 gm/ Sodium 100 mls @ 200 mls/hr 06/30/25 00:00 07/08/25 00:04 Chloride IVPB 200 mls/hr Q12H ILA Administration Insulin Aspart 2 - 5 units 06/28/25 08:00 07/07/25 16:29 Insulin Aspart (*Bkc) 100 Units/Ml SUB-Q Not Given TIDWM ILA Protocol Lidocaine HCl 10 ml 06/29/25 12:29 Lidocaine 2% Gel Urojet 10 Ml Pkg XX Q6H PRN Pain with enemas Linaclotide 145 mcg 06/30/25 06:30 07/08/25 06:25 Linaclotide 145 Mcg Capsule PO Not Given DAILY@0630 [facility] Lisinopril 40 mg 06/28/25 09:00 07/07/25 09:19 Lisinopril 20 Mg Tablet PO 40 mg DAILY ILA Administration Metoprolol Succinate 25 mg 06/28/25 09:00 07/07/25 09:19 Metoprolol Succinate Ext Rel 25 Mg Tabcr PO 25 mg DAILY ILA Administration Multivitamins/Minerals 1 tablet 06/28/25 09:00 07/07/25 09:19 Opti-Gen Tab PO 1 tablet DAILY ILA Administration Ondansetron HCl 4 mg 07/04/25 15:05 07/04/25 15:13 Ondansetron Inj 4 Mg/2 Ml Vial IV PUSH 4 mg Q6H PRN Administration Nausea And Vomiting Pantoprazole Sodium 40 mg 06/28/25 09:00 07/07/25 20:26 Pantoprazole 40 Mg Tablet PO 40 mg Q12HR ILA Administration Prednisone 5 mg 06/28/25 08:00 07/07/25 16:20 Prednisone 5 Mg Tablet PO 5 mg BIDWM ILA Administration Witch Saranya 1 pad 06/28/25 10:36 Witch Saranya 40 Pads TOPICAL PRN PRN Perineal Discomfort Radiology Results: ITS Impressions Abdomen/Pelvis CT 06/27/25 16:10 IMPRESSION: 1. Anorectal changes with acute inflammatory or infectious process not excluded. 2. Other chronic appearing findings. Chest X-Ray 06/29/25 07:27 IMPRESSION: 1. Interstitial pulmonary edema. Modified Barium Swallow 06/29/25 14:14 IMPRESSION: Aspiration was observed on thin sequences. See speech therapist's report for complete evaluation. Abdomen Ultrasound 07/06/25 08:20 IMPRESSION: 1: Cirrhosis of the liver. 2: Cholelithiasis. Labs Labs: Laboratory Results - last 24 hr 07/07/25 07/07/25 07/07/25 07:18 08:18 11:23 WBC RBC Hgb Hct MCV MCH MCHC RDW Plt Count MPV Immature Gran % (Auto) Neut % (Auto) Lymph % (Auto) [place] % (Auto) Eos % (Auto) Baso % (Auto) Lymph # (Auto) [place] # (Auto) Eos # (Auto) Baso # (Auto) Abs Immat Gran (auto) Absolute Neuts (auto) Absolute Nucleated RBC Nucleated RBC % Sodium Potassium Chloride Carbon Dioxide Anion Gap BUN Creatinine Estim Creat Clear Calc Estimated GFR Glucose POC Capillary Glucose 69 118 H 121 H Calcium Total Bilirubin AST ALT Alkaline Phosphatase Total Protein Albumin 07/07/25 07/07/25 07/08/25 16:19 20:23 04:27 WBC 6.2 RBC 3.94 L Hgb 11.8 L Hct 36.7 L MCV 93.1 MCH 29.9 MCHC 32.2 RDW 15.9 H Plt Count 179 MPV 10.0 Immature Gran % (Auto) 0.3 Neut % (Auto) 65.1 Lymph % (Auto) 20.7 [place] % (Auto) 9.3 H Eos % (Auto) 3.9 Baso % (Auto) 0.7 Lymph # (Auto) 1.27 [place] # (Auto) 0.6 Eos # (Auto) 0.2 Baso # (Auto) 0.0 Abs Immat Gran (auto) 0.02 Absolute Neuts (auto) 4.0 Absolute Nucleated RBC 0.000 Nucleated RBC % 0.0 Sodium 133 L Potassium 4.3 Chloride 102 Carbon Dioxide 30 Anion Gap 1 L BUN 15 Creatinine 0.50 L Estim Creat Clear Calc 57 Estimated GFR > 60 Glucose 75 POC Capillary Glucose 130 H 181 H Calcium 8.7 Total Bilirubin 0.7 AST 102 H ALT 80 H Alkaline Phosphatase 457 H Total Protein 5.1 L Albumin 2.7 L Quality VTE Prophylaxis VTE prophylaxis: pharmacologic ordered (Lovenox)
[2025-07-08 09:08] VITALS: PULSE 70
[2025-07-08] MEDS: PANTOPRAZOLE 40 MG TABLET PO ×2 (09:08→20:53)
[2025-07-08] MEDS: OPTI-GEN TAB 1 TABLET PO (09:08)
[2025-07-08] MEDS: METOPROLOL SUCCINATE EXT REL 25 MG TABCR PO (09:08)
[2025-07-08] MEDS: DULoxetine HCL 60 MG CAPSULE.DR PO (09:08)
[2025-07-08] MEDS: ENOXAPARIN 40 MG/0.4 ML SYRINGE SUB-Q (09:08)
--- NOTE | 2025-07-08 12:27 | PCNFU ---
Nutrition Follow-Up Complete: Moderate Protein Calorie Malnutrition as related to inadequate protein-energy intake in setting of acute disease (UTI) as evidenced by minimal oral intake for > 5 days; significant weight loss of 7 ibs (5%) in 13 days. Goal: Meet estimated nutritional needs Patient will continue current goal. Pt current nutrition is 2 gm Na with Moderately Thick liquids, Level 3 and diet supplements. Last recorded weight is 61.8 kg, no new weight to report. Bowel Motility: Last reported BM 07/05 Labs Reviewed:Cr 0.5,Na 133, Hct 36.7, Hgb 11.8 Meds Noted: Protonix, Lantus, NovoLog,Prednisone Skin: WNL Additional Notes: Patient is tolerating current diet orders, 10-50% reported. Speech continues to eval and treat. Diet supplements are being provided of Ensure Plus High Protein (350 kcal and 20 gm protein) and Nutritional Ice Cream (300 kcal and 9 gm protein). Agree with diet orders. Will monitor weight, labs, skin, diet orders, meds every 3 days.
[2025-07-08 14:00] VITALS: BP 113/60; PULSE 74; RESP 14; TEMP 36.3; O2SAT 100
[2025-07-08 20:23] VITALS: BP 150/77; PULSE 73; RESP 18; TEMP 36.8; O2SAT 92
[2025-07-09 05:40] LABS: Hematocrit 37.0 % (37.0-47.0); Hemoglobin 11.7 g/dL (12.0-15.0); Immature Granulocyte Percent A 0.2 % (0-0.5); Lymphocytes Absolute Auto 1.35 K/mm3 (0.9-3.2); Mean Corpuscular HGB Conc 31.6 g/dl (32-36); Mean Corpuscular Hemoglobin 29.5 pg (26-34); Mean Corpuscular Volume 93.2 fl (80-100); Nucleated Red Blood Cells Absolute Auto 0.000 K/mm3 (0.0-0.012); Nucleated Red Blood Cells Perc 0.0 % (0.0-0.2); Platelet Count Result 173 k/mm3 (150-375); Red Blood Count 3.97 M/mm3 (4.2-5.4); White Blood Count 6.1 K/mm3 (4.5-10.0)
[2025-07-09] MEDS: LINACLOTIDE 145 MCG CAPSULE PO (05:58)
[2025-07-09 06:00] VITALS: BP 183/89; PULSE 80; RESP 17; TEMP 36.7; O2SAT 94
[2025-07-09 06:07] LABS: Alanine Aminotransferase 67 U/L (6-35); Albumin Level 2.7 g/dL (3.5-5.1); Alkaline Phosphatase 408 U/L (38-126); Anion Gap 0 mmol/L (4-12); Aspartate Amino Transferase 79 U/L (14-36); Bilirubin,Total 0.7 mg/dL (0.2-1.3); Blood Urea Nitrogen 15 mg/dL (7-17); Calcium 8.9 mg/dL (8.4-10.2); Carbon Dioxide 32 mmol/L (22-30); Chloride 100 mmol/L (98-107); Estimated CRCL calculation 59 ml/min; Estimated Glomerular Filt Rate > 60; Glucose 71 mg/dL (65-110); Potassium 4.2 mmol/L (3.4-5.0); Sodium 132 mmol/L (137-145); Total Protein 5.0 g/dL (6.3-8.2)
--- NOTE | 2025-07-09 08:04 | P.PNIM_ITS ---
Progress Note: A&P Assessment and Plan (1) Constipation: Qualifiers: Constipation type: unspecified constipation type Qualified Code(s): K59.00 - Constipation, unspecified Code(s): K59.00 - Constipation, unspecified Status: Acute Assessment and Plan: -presented with abdominal pain x 1 week. Recently ED visit for fecal impaction. -Abdomen pelvis CT with contrast showed small to moderate amount of stool extends to the cecum with less stool in the rectum, anal rectal changes with acute inflammatory or infectious process not excluded. - Miralax held due to diarrhea. Continue Linzess per GI recs. (2) Abdominal pain: Qualifiers: Abdominal location: generalized Qualified Code(s): R10.84 - Generalized abdominal pain Code(s): R10.9 - Unspecified abdominal pain Status: Resolved Assessment and Plan: - CT A/P on admission showed small to moderate amount of stool extends to the cecum with less stool in the rectum, anal rectal changes with acute inflammatory or infectious process not excluded. -patient has been following with GI due to diarrhea and new onset rectal bleeding. Notes reviewed - last seen 06/02/25 which notes history of abnormal CT of the rectum an elevated fecal calprotectin, diarrhea and rectal bleeding. At one point there was concern for C diff for which she completed short course of vancomycin and diarrhea improved. Also recently treated for E coli diarrhea (stool PCR+ 05/29). Per notes, planned to undergo flexible sigmoidoscopy for further evaluation if CT showed continued rectal wall thickening. - GI consulted - recommended stopping IV Zosyn. Management of constipation as below. (3) Urinary tract infection: Qualifiers: Hematuria presence: without hematuria Urinary tract infection type: acute cystitis Qualified Code(s): N30.00 - Acute cystitis without hematuria Code(s): N39.0 - Urinary tract infection, site not specified Status: Acute Assessment and Plan: -Patient did not complain of UTI symptoms, only had mild confusion on admission and abdominal pain as above -afebrile, no leukocytosis -previous micro reviewed - history of E coli with resistance -urine culture shows growth of Citrobacter koseri and E coli, limited susceptibility -finished course of Meropenem 07/07 - recommend judicious use of antibiotics in the future (4) Dysphagia: Code(s): R13.10 - Dysphagia, unspecified Status: Chronic Assessment and Plan: -Modified barium swallow shows aspiration with thin liquids -speech therapy recommending regular textured food, moderately thickened level 3 liquids no straw only cup with an extra swallow after each drink (5) Hemorrhoids: Qualifiers: Hemorrhoid type: unspecified Qualified Code(s): K64.9 - Unspecified hemorrhoids Code(s): K64.9 - Unspecified hemorrhoids Status: Chronic Assessment and Plan: -External hemorrhoids noted on exam. -continue topical hydrocortisone, Tucks pads -Avoid opioid pain medications due to constipation and fecal impaction (6) Essential (primary) hypertension: Code(s): I10 - Essential (primary) hypertension Status: Chronic Assessment and Plan: - BP stable -Continue lisinopril, metoprolol (7) Dyslipidemia: Code(s): E78.5 - Hyperlipidemia, unspecified Status: Chronic Assessment and Plan: - holding statin due to elevated LFTs (8) Type 2 diabetes mellitus: Code(s): E11.9 - Type 2 diabetes mellitus without complications Status: Chronic Assessment and Plan: -hypoglycemia protocol -POC blood glucose ACHS -home medication: None -Low-dose sliding scale -A1C 6.2 on 04/07/2025 (9) Elevated LFTs: Code(s): R79.89 - Other specified abnormal findings of blood chemistry Status: Acute Assessment and Plan: - 07/08/25 - AST 102, ALT 80, alk phos 457 (improving) - acute on chronic elevation - RUQ US with known cirrhosis - hold statin - monitor CMP (10) Moderate protein-calorie malnutrition: Code(s): E44.0 - Moderate protein-calorie malnutrition Status: Acute Assessment and Plan: - intake has improved with management of constipation - dietitian following (11) Generalized weakness: Code(s): R53.1 - Weakness Status: Acute Assessment and Plan: - PT/OT recommended SNF, pending auth Plan DVT prophylaxis: SCDs and Lovenox Code status: DNR Dispo: SNF, awaiting auth Subjective Date/time seen: 07/09/25 08:04 Interval history: 84-year-old female patient admitted to the hospital for abdominal pain with constipation nausea and severe weakness. She has not been able to eat or drink at home and getting weaker over the past 1 week. On admission there was concern about patient choking on her intake. 07/09/2025 Patient sitting comfortably in bed at time of exam. Denies any complaints, no a cute overnight events. Appeal still pending SNF auth - likely going to be stalled until Friday given holiday weekend. Review of Systems Review of Systems: All systems reviewed & are unremarkable except as noted in HPI and below Exam Narrative: General: chronically ill-appearing, appears deconditioned Eyes: EOMI ENT: neck supple Cardiovascular: Regular rate and rhythm Respiratory: Clear to auscultation, respirations even and unlabored on RA Gastrointestinal: Soft, no tenderness to palpation Genitourinary: no suprapubic tenderness Musculoskeletal: No edema Skin: warm, dry Neuro: Alert Psych: Mood appropriate Objective Data Vital Signs Vital Signs: Vital Signs - 24 hr 07/08/25 08:20 07/08/25 09:08 07/08/25 14:00 Temperature 97.4 F L Pulse Rate 70 74 Respiratory Rate 14 Blood Pressure 113/60 Pulse Oximetry 100 Oxygen Delivery Room Air 07/08/25 20:23 07/08/25 20:45 07/09/25 06:00 Temperature 98.3 F 98.1 F Pulse Rate 73 80 Respiratory Rate 18 17 Blood Pressure 150/77 H 183/89 H Pulse Oximetry 92 94 Oxygen Delivery Room Air Intake/Output Intake/Output: Intake & Output 07/06/25 07/07/25 07/08/25 07/09/25 23:59 23:59 23:59 23:59 Intake Total 790 1388 450 Output Total 700 1775 550 300 Balance 90 -387 -100 -300 Meds/Results Medications: Active Medications Generic Name Dose Route Start Last Admin Trade Name Freq PRN Reason Stop Dose Admin Acetaminophen 650 mg 06/27/25 16:49 07/08/25 00:37 Acetaminophen 325 Mg Tablet PO 650 mg Q4H PRN Administration Mild Pain (1-3) or Fever Atorvastatin Calcium 40 mg 06/28/25 21:00 07/05/25 20:33 Atorvastatin 40 Mg Tablet PO 40 mg On Hold: 07/06/25 07:45 QHS ILA Administration Dextrose 12.5 gm 06/28/25 00:55 Dextrose 50% 25 Gm/50 Ml Syringe IV PUSH PRN PRN Hypoglycemia Protocol Dicyclomine HCl 10 mg 06/28/25 17:52 07/04/25 20:43 Dicyclomine Hcl 10 Mg Capsule PO 10 mg TID PRN Administration Abdominal Cramping Duloxetine HCl 60 mg 06/28/25 09:00 07/08/25 09:08 Duloxetine Hcl 60 Mg Capsule.Dr PO 60 mg DAILY ILA Administration Enoxaparin Sodium 40 mg 06/29/25 09:00 07/08/25 09:08 Enoxaparin 40 Mg/0.4 Ml Syringe SUB-Q 40 mg DAILY ILA Administration Glucagon 1 mg 06/28/25 00:55 Glucagon For Inj 1 Mg Vial IM PRN PRN Hypoglycemia Protocol Glucose 15 gm 06/28/25 00:55 Glucose Oral Gel 15 Gm Of Glucse In 37.5 Gm Tube PO PRN PRN Hypoglycemia Protocol Hydrocortisone 1 applic 06/28/25 00:30 06/28/25 17:44 Hydrocortisone 1% 30 Gm Cream TOPICAL 1 applic Q6H PRN Administration Hemorrhoids Dextrose 1,000 mls @ 100 mls/hr 06/28/25 00:55 Dextrose 5% 1,000 Ml IVPB PRN PRN Hypoglycemia Protocol Insulin Aspart 2 - 5 units 06/28/25 08:00 07/08/25 17:42 Insulin Aspart (*Bkc) 100 Units/Ml SUB-Q Not Given TIDWM [facility] Protocol Lidocaine HCl 10 ml 06/29/25 12:29 Lidocaine 2% Gel Urojet 10 Ml Pkg XX Q6H PRN Pain with enemas Linaclotide 145 mcg 06/30/25 06:30 07/09/25 05:58 Linaclotide 145 Mcg Capsule PO 145 mcg DAILY@0630 ILA Administration Lisinopril 40 mg 06/28/25 09:00 07/08/25 09:08 Lisinopril 20 Mg Tablet PO 40 mg DAILY ILA Administration Metoprolol Succinate 25 mg 06/28/25 09:00 07/08/25 09:08 Metoprolol Succinate Ext Rel 25 Mg Tabcr PO 25 mg DAILY ILA Administration Multivitamins/Minerals 1 tablet 06/28/25 09:00 07/08/25 09:08 Opti-Gen Tab PO 1 tablet DAILY ILA Administration Ondansetron HCl 4 mg 07/04/25 15:05 07/04/25 15:13 Ondansetron Inj 4 Mg/2 Ml Vial IV PUSH 4 mg Q6H PRN Administration Nausea And Vomiting Pantoprazole Sodium 40 mg 06/28/25 09:00 07/08/25 20:53 Pantoprazole 40 Mg Tablet PO 40 mg Q12HR ILA Administration Prednisone 5 mg 06/28/25 08:00 07/08/25 17:45 Prednisone 5 Mg Tablet PO 5 mg BIDWM ILA Administration Witch Saranya 1 pad 06/28/25 10:36 Witch Saranya 40 Pads TOPICAL PRN PRN Perineal Discomfort Radiology Results: ITS Impressions Abdomen/Pelvis CT 06/27/25 16:10 IMPRESSION: 1. Anorectal changes with acute inflammatory or infectious process not excluded. 2. Other chronic appearing findings. Chest X-Ray 06/29/25 07:27 IMPRESSION: 1. Interstitial pulmonary edema. Modified Barium Swallow 06/29/25 14:14 IMPRESSION: Aspiration was observed on thin sequences. See speech therapist's report for complete evaluation. Abdomen Ultrasound 07/06/25 08:20 IMPRESSION: 1: Cirrhosis of the liver. 2: Cholelithiasis. Labs Labs: Laboratory Results - last 24 hr 07/08/25 07/08/25 07/08/25 11:48 16:06 20:06 WBC RBC Hgb Hct MCV MCH MCHC RDW Plt Count MPV Immature Gran % (Auto) Neut % (Auto) Lymph % (Auto) [place] % (Auto) Eos % (Auto) Baso % (Auto) Lymph # (Auto) [place] # (Auto) Eos # (Auto) Baso # (Auto) Abs Immat Gran (auto) Absolute Neuts (auto) Absolute Nucleated RBC Nucleated RBC % Sodium Potassium Chloride Carbon Dioxide Anion Gap BUN Creatinine Estim Creat Clear Calc Estimated GFR Glucose POC Capillary Glucose 107 H 127 H 147 H Calcium Total Bilirubin AST ALT Alkaline Phosphatase Total Protein Albumin 07/09/25 04:34 WBC 6.1 RBC 3.97 L Hgb 11.7 L Hct 37.0 MCV 93.2 MCH 29.5 MCHC 31.6 L RDW 15.8 H Plt Count 173 MPV 10.4 Immature Gran % (Auto) 0.2 Neut % (Auto) 66.5 Lymph % (Auto) 22.2 [place] % (Auto) 8.6 H Eos % (Auto) 1.8 Baso % (Auto) 0.7 Lymph # (Auto) 1.35 [place] # (Auto) 0.5 Eos # (Auto) 0.1 Baso # (Auto) 0.0 Abs Immat Gran (auto) 0.01 Absolute Neuts (auto) 4.1 Absolute Nucleated RBC 0.000 Nucleated RBC % 0.0 Sodium 132 L Potassium 4.2 Chloride 100 Carbon Dioxide 32 H Anion Gap 0 L BUN 15 Creatinine 0.48 L Estim Creat Clear Calc 59 Estimated GFR > 60 Glucose 71 POC Capillary Glucose Calcium 8.9 Total Bilirubin 0.7 AST 79 H ALT 67 H Alkaline Phosphatase 408 H Total Protein 5.0 L Albumin 2.7 L Quality VTE Prophylaxis VTE prophylaxis: pharmacologic ordered (Lovenox)
[2025-07-09 08:20] VITALS: PULSE 80
[2025-07-09] MEDS: METOPROLOL SUCCINATE EXT REL 25 MG TABCR PO (08:20)
[2025-07-09 08:23] VITALS: BP 119/69
[2025-07-09] MEDS: PANTOPRAZOLE 40 MG TABLET PO (08:23)
[2025-07-09] MEDS: ENOXAPARIN 40 MG/0.4 ML SYRINGE SUB-Q (08:23)
[2025-07-09] MEDS: OPTI-GEN TAB 1 TABLET PO (08:23)
[2025-07-09] MEDS: DULoxetine HCL 60 MG CAPSULE.DR PO (08:23)
[2025-07-09 14:00] VITALS: BP 103/58; PULSE 87; RESP 16; TEMP 36.7; O2SAT 97
--- NOTE | 2025-07-09 14:25 | PM.DS ---
DS: Admitting Diagnosis Discharge Date 07/09/2025 Admitting Diagnosis Constipation DS: Discharge Diagnosis Discharge Diagnosis (1) Constipation: Qualifiers: Constipation type: unspecified constipation type Qualified Code(s): K59.00 - Constipation, unspecified Code(s): K59.00 - Constipation, unspecified Status: Acute (2) Abdominal pain: Qualifiers: Abdominal location: generalized Qualified Code(s): R10.84 - Generalized abdominal pain Code(s): R10.9 - Unspecified abdominal pain Status: Resolved (3) Urinary tract infection: Qualifiers: Urinary tract infection type: acute cystitis Hematuria presence: without hematuria Qualified Code(s): N30.00 - Acute cystitis without hematuria Code(s): N39.0 - Urinary tract infection, site not specified Status: Acute (4) Dysphagia: Code(s): R13.10 - Dysphagia, unspecified Status: Chronic (5) Hemorrhoids: Qualifiers: Hemorrhoid type: unspecified Qualified Code(s): K64.9 - Unspecified hemorrhoids Code(s): K64.9 - Unspecified hemorrhoids Status: Chronic (6) Essential (primary) hypertension: Code(s): I10 - Essential (primary) hypertension Status: Chronic (7) Dyslipidemia: Code(s): E78.5 - Hyperlipidemia, unspecified Status: Chronic (8) Type 2 diabetes mellitus: Code(s): E11.9 - Type 2 diabetes mellitus without complications Status: Chronic (9) Elevated LFTs: Code(s): R79.89 - Other specified abnormal findings of blood chemistry Status: Acute (10) Moderate protein-calorie malnutrition: Code(s): E44.0 - Moderate protein-calorie malnutrition Status: Acute (11) Generalized weakness: Code(s): R53.1 - Weakness Status: Acute DS: Summary Hospital Course Reason for hospitalization: Constipation Hospital Course: Per HPI: 84-year-old female with a past medical history of HTN, GERD, COPD, AFib on Eliquis, depression, esophageal stricture, CVA, hemorrhoids, PE, RA, MALCOLM presents to the ED from home on 06/27/2025 with abdominal pain and weakness. Family provided information in the ED as patient is confused at times. Patient was here in this ED on 06/15 for a fecal impaction. Results after enema and patient was discharged home. Patient now over the past week has been complaining of nausea and increased abdominal pain, mostly on the left side. She has also had decreased intake and has only been taking and small amounts of protein shake. Family further states that the patient did have several episodes of diarrhea 2 days prior to arrival but has not had a bowel movement since. Patient has no further complaints aside from her abdominal pain. Family denies fever, shortness of breath, cough. Initial vital signs 109/81, 81 heart rate, respirations 18, afebrile and 97 % on room air Labs revealed VIDHYA with creatinine 1.17, AST 65, ALT 42, alk-phos 321. UA with 1+ protein, trace ketones, positive nitrate, 1+ bilirubin, 2+ leukocyte esterase, 6-10 RBC, 21-50 WBC, 1+ bacteria Abdomen pelvis CT with contrast reveals chronic right internal iliac artery aneurysm, small to moderate amount of stool extends to the cecum with less stool in the rectum, anal rectal changes with acute inflammatory or infectious process not excluded. Hospital course: The patient is an 84-year-old female with a complex medical history including hypertension, GERD, COPD, atrial fibrillation on anticoagulation, depression, esophageal stricture, prior CVA, hemorrhoids, pulmonary embolism, rheumatoid arthritis, and obstructive sleep apnea, who presented on 06/27/25 with a chief complaint of abdominal pain, nausea, and progressive weakness. She had a recent ED visit on 06/15 for fecal impaction, which was treated with an enema. Over the week prior to admission, she experienced decreased oral intake, left-sided abdominal pain, and intermittent diarrhea, followed by no bowel movements. On admission, she was afebrile but appeared deconditioned and intermittently confused. Initial labs were notable for acute kidney injury (creatinine 1.17, BUN 71), mild transaminitis (AST 65, ALT 42, alk phos 321), and urinalysis suggestive of a urinary tract infection. CT abdomen/pelvis revealed a chronic right internal iliac artery aneurysm, significant stool burden to the cecum, and anorectal changes concerning for possible acute inflammation or infection. She was managed initially with IV fluids for VIDHYA, bowel regimen (soapsuds enema, Miralax), and empiric broad-spectrum antibiotics (Zosyn) to cover both possible GI and urinary sources of infection. Her VIDHYA resolved with hydration. She developed hypoglycemia requiring D5-containing fluids and a low-dose insulin sliding scale. Her abdominal pain improved after manual disimpaction and enemas, but she subsequently developed overflow diarrhea, prompting adjustment of her bowel regimen (Miralax held, Linaclotide started per GI recommendations). GI was consulted due to her history of chronic diarrhea, rectal bleeding, and abnormal rectal imaging; they recommended conservative management and holding antibiotics once infection was excluded. Urine cultures grew Citrobacter koseri and E. coli with limited susceptibilities; she completed a course of meropenem. She remained afebrile and hemodynamically stable throughout. A modified barium swallow demonstrated aspiration with thin liquids, and speech therapy recommended regular textured foods with moderately thickened liquids and no straws. She was also found to have moderate protein-calorie malnutrition, for which dietitian support was provided, and her intake improved as her GI symptoms resolved. Her home statin was held due to worsening LFTs, and RUQ ultrasound confirmed cirrhosis and cholelithiasis. She was maintained on her home antihypertensives and other chronic medications as appropriate. Her hospital course was further complicated by generalized weakness and deconditioning, requiring PT/OT evaluation, and she was ultimately recommended for [facility] facility placement. Her code status was clarified to DNR during the admission. At the time of the most recent assessment, she was comfortable, with no acute complaints, and awaiting SNF placement authorization. Status at Discharge Overall status at discharge: patient is progressing back to baseline Time Spent with Patient Time attestation: Total time spent providing and/or coordinating discharge services: 30 Exam Narrative: General: chronically ill-appearing, appears deconditioned Eyes: EOMI ENT: neck supple Cardiovascular: Regular rate and rhythm Respiratory: Clear to auscultation, respirations even and unlabored on RA Gastrointestinal: Soft, no tenderness to palpation Genitourinary: no suprapubic tenderness Musculoskeletal: No edema Skin: warm, dry Neuro: Alert Psych: Mood appropriate DS: Data Data Completed and Pending Labs on day of discharge: Labs from last 24 hours 07/09/25 07/09/25 07/09/25 12:11 08:06 04:34 WBC 6.1 RBC 3.97 L Hgb 11.7 L Hct 37.0 MCV 93.2 MCH 29.5 MCHC 31.6 L RDW 15.8 H Plt Count 173 MPV 10.4 Immature Gran % (Auto) 0.2 Neut % (Auto) 66.5 Lymph % (Auto) 22.2 [place] % (Auto) 8.6 H Eos % (Auto) 1.8 Baso % (Auto) 0.7 Lymph # (Auto) 1.35 [place] # (Auto) 0.5 Eos # (Auto) 0.1 Baso # (Auto) 0.0 Abs Immat Gran (auto) 0.01 Absolute Neuts (auto) 4.1 Absolute Nucleated RBC 0.000 Nucleated RBC % 0.0 Sodium 132 L Potassium 4.2 Chloride 100 Carbon Dioxide 32 H Anion Gap 0 L BUN 15 Creatinine 0.48 L Estim Creat Clear Calc 59 Estimated GFR > 60 Glucose 71 POC Capillary Glucose 129 H 67 Calcium 8.9 Total Bilirubin 0.7 AST 79 H ALT 67 H Alkaline Phosphatase 408 H Total Protein 5.0 L Albumin 2.7 L 07/08/25 07/08/25 20:06 16:06 WBC RBC Hgb Hct MCV MCH MCHC RDW Plt Count MPV Immature Gran % (Auto) Neut % (Auto) Lymph % (Auto) [place] % (Auto) Eos % (Auto) Baso % (Auto) Lymph # (Auto) [place] # (Auto) Eos # (Auto) Baso # (Auto) Abs Immat Gran (auto) Absolute Neuts (auto) Absolute Nucleated RBC Nucleated RBC % Sodium Potassium Chloride Carbon Dioxide Anion Gap BUN Creatinine Estim Creat Clear Calc Estimated GFR Glucose POC Capillary Glucose 147 H 127 H Calcium Total Bilirubin AST ALT Alkaline Phosphatase Total Protein Albumin Discharge Plan Discharge Attending physician on discharge: Ulysses Nolasco Consulting providers: Yasmin Fregoso; Ildefonso Zazueta; Braden Aguilar Discharging Clinician: Braden Aguilar Anticipated Discharge Date/Time: 07/09/25 14:24 Patient Disposition: SNF Activity: as tolerated Diet: regular Discharge Instructions: Discharge disposition: [facility] in [facility] Take medications as prescribed Monitor blood pressures Take caution while standing, rising, or moving Change positions slowly taking a break between each position change If you standing feel dizzy sit back down and take a break Encouraged to continue with yearly vaccinations Return to the emergency department if you develop sudden shortness of breath, chest pain, nausea, vomiting, upset stomach or intractable diarrhea Return to the emergency department if you develop fever greater than 101.5 Follow-up with the primary care physician within 1-2 weeks Thank you for choosing [facility] for your healthcare needs Patient Language: Malawian Stand Alone Forms: General Discharge Information Follow-up/Referrals: Mikayla Fernando APRN [Primary Care Provider, Family Practice] Discharge Medications: Continued acetaminophen [Tylenol Extra Strength] 500 mg tablet 500 mg PO TID PRN (Reason: Pain) Patient Comments: TAKES WITH TRAMADOL TID FOR PAIN prednisone 2.5 mg tablet 5 mg PO BID omeprazole 40 mg capsule,delayed release(DR/EC) 40 mg PO DAILY hydroxychloroquine 200 mg tablet 400 mg PO DAILY hydrocortisone [Preparation H Hydrocortisone] 1 % cream 1 applic topical QID PRN (Reason: hemorrhoids) Qty: 28.4 1RF diphenhydramine-acetaminophen [Tylenol PM Extra Strength] 25-500 mg Tablet 1 tablet PO HS tramadol 50 mg tablet 50 mg PO TID PRN (Reason: Pain) Qty: 10 0RF hydrochlorothiazide 25 mg tablet 25 mg PO HS aspirin 81 mg tablet 81 mg PO HS [id number] Tablet 1 tablet PO DAILY atorvastatin 40 mg tablet 40 mg PO QHS Qty: 100 1RF metoprolol succinate 25 mg tablet extended release 24 hr 25 mg PO DAILY Qty: 100 1RF lisinopril 40 mg tablet 40 mg PO DAILY Qty: 90 1RF Date of admission: 06/28/25 11:18 Primary Care Provider: Mikayla Fernando Admitting Provider: Ulysses Nolasco Attending physician on admission: Ulysses Nolasco Condition: Stable Quality VTE Prophylaxis VTE prophylaxis: pharmacologic ordered (Lovenox)
== END 2025-07-09 16:20 | DRG 690 ==
LOC: ANHED 16:49 → ANH2MED 17:08
PROVIDERS: Nurse Practitioner Adult Health; Physician Assistant; Admitting Provider Internal Medicine; Emergency Provider Emergency Medicine; PCP Nurse Practitioner Family; Visit Provider Physician Assistant
DX: N39.0 Urinary tract infection, site not specified (principal); E44.0 Moderate protein-calorie malnutrition; N17.9 Acute kidney failure, unspecified; K59.00 Constipation, unspecified; B96.20 Unspecified Escherichia coli [E. coli] as the cause of diseases classified elsewhere; R13.10 Dysphagia, unspecified; K64.9 Unspecified hemorrhoids; E87.6 Hypokalemia; T17.998A Other foreign object in respiratory tract, part unspecified causing other injury, initial encounter; E78.5 Hyperlipidemia, unspecified; I10 Essential (primary) hypertension; E11.9 Type 2 diabetes mellitus without complications; K21.9 Gastro-esophageal reflux disease without esophagitis; K74.60 Unspecified cirrhosis of liver; K80.20 Calculus of gallbladder without cholecystitis without obstruction; G47.33 Obstructive sleep apnea (adult) (pediatric); J44.9 Chronic obstructive pulmonary disease, unspecified; I48.91 Unspecified atrial fibrillation; M06.9 Rheumatoid arthritis, unspecified; Z66 Do not resuscitate; Z79.01 Long term (current) use of anticoagulants; Z86.73 Personal history of transient ischemic attack (TIA), and cerebral infarction without residual deficits; Z86.711 Personal history of pulmonary embolism; Z85.828 Personal history of other malignant neoplasm of skin; Z96.651 Presence of right artificial knee joint; Z90.49 Acquired absence of other specified parts of digestive tract; Z90.710 Acquired absence of both cervix and uterus; Z68.24 Body mass index [BMI] 24.0-24.9, adult
CPT/HCPCS: 36415; 71045; 74177; 74230; 76705; 80048; 80053; 80074; 81001; 82948; 83605; 83690; 85025; 87086; 87186; 92526; 92611; 96375; 97110; 97116; 97162; 97166; 97530; 97535; 99285; A9270; G0378; J0360; J1644; J1650; J1815; J2185; J2270; J2405; J2543; J7030; J7512; Q9967